=== PATIENT | male | born 1925 | race Caucasian/White ===

== ENCOUNTER 2016-12-02 10:07 | Inpatient (IN) | payer OTHER, MEDICARE ==
[~2016-12-02] VITALS: Ht 167.6 cm; Wt 91.2 kg
[~2016-12-02 10:07] MED LIST: ATORVASTATIN CA10 M1 PO; AUGMENTIN 875 M1 TAB PO; DUONEB 3 MG/3 ML3 ML INH/SOL; LASIX20 M1 PO; MEDROL4 M2 PO; MIRALAX17 GM PO; POTASSIUM CHLO10 ME5 PO; PREDNISONE50 MG PO; TYLENOL #31 TAB PO; VENTOLIN HFA18 GM INH
--- NOTE | 2016-12-02 10:15 | NUR ---
PT PRESENTS TO ER C/O OF DIFFUSE ABDOMINAL PAIN THAT STARTED 1 HOUR [facility]
--- NOTE | 2016-12-02 10:15 | NUR ---
PT MOVED TO ROOM 4 ON ARRIVAL, FOR EKG
--- NOTE | 2016-12-02 10:25 | NUR ---
PT TO ER ROOM 4. DR BENITES AT BEDSIDE AT THIS TIME FOR EVAL. IV EST.
--- NOTE | 2016-12-02 10:28 | ED GI/GU/ABDOMINAL COMPLAINT ---
History of Present Illness General Chief Complaint: Abdominal Pain/Flank Pain Stated Complaint: ABD PAIN X 1HR Source: patient, family Exam Limitations: no limitations Vital Signs & Intake/Output Vital Signs & Intake/Output Vital Signs Date Time Temp Pulse Resp B/P Pulse O2 O2 Flow FiO2 Ox Delivery Rate 12/06 0621 40 12/06 0612 88 124/72 12/06 0400 99 Ventilator 40% 12/06 0400 98.1 82 23 108/67 99 Ventilator 40% 12/06 0318 40 12/06 0110 40 12/06 0052 87 91/59 12/06 0045 99.5 12/06 0000 100.8 100 26 119/64 96 Ventilator 40% 12/06 0000 9 Ventilator 40% 12/05 2346 100.9 12/05 2200 107 117/64 12/05 2130 40 12/05 2000 95 Ventilator 40% 12/05 1999 100.8 107 27 110/65 95 Ventilator 35% 12/05 1944 40 12/05 1742 100.1 12/05 1649 100.8 12/05 1649 108 94/60 12/05 1642 40 12/05 1600 97 Ventilator 40% 12/05 1600 100.6 108 27 110/62 97 Ventilator 40% 12/05 1323 40 12/05 1200 96 Ventilator 40% 12/05 1200 99.8 146 25 100/71 96 Ventilator 40% 12/05 1041 125 80/0 12/05 1009 126 82/0 12/05 0954 179 82/0 12/05 0915 101.5 12/05 0840 101.9 12/05 0830 40 12/05 0800 98 Ventilator 40% 12/05 0800 102.0 128 27 96/68 98 Ventilator 40% ED Intake and Output 12/06 0000 12/05 1200 Intake Total 5190 1414 Output Total 570 325 Balance 4620 1089 Intake, IV 5190 1414 Intake, Oral 0 Output, 150 125 Gastric Drainage Output, Stool 20 0 Output, Urine 400 200 Allergies Coded Allergies: NO KNOWN ALLERGIES (12/24/15) Reconcile Medications Albuterol Sulfate (Ventolin Hfa) 90 MCG HFA.AER.AD 2 PUF INH Q4-6 PRN PRN BREATHING PROBLEMS (Reported) Albuterol Sulfate/Ipratropiu (Duoneb) 3 MG/3 ML NEB 1 Vial INH/ELOY 4 TIMES/DAY PRN WHEEZING Atorvastatin Calcium 10 MG TABLET 1 TAB PO DAILY CHOLESTEROL (Reported) Furosemide (Lasix) 20 MG TABLET 1 TAB PO DAILY FLUID IN LUNGS Methylprednisolone. (Medrol) 4 MG TAB.DS.PK 1 DP PO AD BRONCHOSPASM 6 on day 1 then reduce by one tablet daily until gone Potassium Chloride 10 MEQ TAB.ER.PRT 1 TAB PO DAILY SUPPLEMENT Triage Note: PT PRESENTS TO ER C/O OF DIFFUSE ABDOMINAL PAIN THAT STARTED 1 HOUR [facility] Triage Nurses Notes Reviewed? yes HPI: Patient presents for evaluation of severe lower abdominal pain that began 2 days ago. It is a constant sharp severe pain. Nothing seems to make it better or worse. He denies vomiting fever or cold symptoms or dysuria. He did pass a small amount of urine today. He also has a history of constipation with his last bowel movement being about 2 days ago. Past History Travel History Traveled to [place] past 21 day No Medical History Any Pertinent Medical History? 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 No Review of Systems Review of Systems Constitutional: Reports: no symptoms. EENTM: Reports: no symptoms. Respiratory: Reports: no symptoms. Cardiovascular: Reports: no symptoms. GI: Reports: see HPI. Genitourinary: Reports: no symptoms. Musculoskeletal: Reports: no symptoms. Skin: Reports: no symptoms. Neurological/Psychological: Reports: no symptoms. Hematologic/Endocrine: Reports: no symptoms. Immunologic/Allergic: Reports: no symptoms. All Other Systems: Reviewed and Negative Physical Exam Physical Exam Gastrointestinal: SEE BELOW Comments: Gen.: Well-nourished, well-developed, no acute respiratory distress. Moderate stress secondary to abdominal pain. Head: Normocephalic, atraumatic. Eyes: Normal inspection bilaterally Ears: Normal inspection bilaterally Nose: Normal inspection Throat/mouth : Moist mucosa Neck: Supple, full range of motion, no goiter Heart: Regular rate and rhythm, no murmurs rubs or gallops Lungs: Clear to auscultation bilaterally with normal air entry Chest: Nontender Back: Normal range of motion Abdomen: Soft, suprapubic tenderness, nondistended, normal bowel sounds Extremities: Normal range of motion grossly, equal radial pulses, no cyanosis clubbing or edema Neurologic: Cranial nerves grossly intact, speech is clear Skin: warm and dry Psychiatric: Calm, cooperative, no apparent delusions or hallucinations : Left inguinal hernia, reducible. Core Measures ACS in differential dx? No Severe Sepsis Present: No Septic Shock Present: No Progress Differential Diagnosis: bowel obstruction, diverticulitis, perforated viscous, ureterolithiasis, urinary retention Plan of Care: Orders Procedure Date/time Status LACTIC ACID 12/06 0554 Active ARTERIAL BLOOD GAS (GEN) 12/06 0500 Complete XRY-PORTABLE CHEST XRAY 12/06 0500 Active ICU LAB BUNDLE 12/06 0500 Complete CBC WITHOUT DIFFERENTIAL 12/06 0500 Complete LACTIC ACID 12/05 2000 Complete LACTIC ACID 12/05 1700 Complete EKG 12/05 1416 Active LACTIC ACID 12/05 1238 Complete Restraint- Medical 12/05 0941 Active Edward, Insertion/Removal/Asses 12/05 0941 Active TROPONIN LEVEL 12/05 0938 Complete LACTIC ACID 12/05 0938 Complete EKG 12/05 0933 Active EKG 12/05 0839 Active CORTISOL AM 12/05 0410 Complete Current Medications Sig/Ar Start time Last Medication Dose Stop Time Status Admin Morphine Sulfate 2 MG Q3P PRN 12/04 1300 AC (Morphine) Ondansetron HCl 4 MG Q6P PRN 12/02 1800 AC (Zofran) Laboratory Tests 12/06/16 0505: pH 7.30 *L, pCO2 29 L, pO2 103 H, HCO3 14 L, ABG O2 Sat (Measured) 97.0, P-50 (Temp Corrected) Y, Carboxyhemoglobin 0.1 L, O2 Concentration % 40%, Temperature 98.1, Respiration Rate 20, O2 Delivery Method ESPRIT, Vent Mode AC, Expiratory Pressure 5, Tidal Volume 500, Phlebotomy Draw Site [place] 12/06/16 4529: Anion Gap 12, Estimated GFR 44 L, Glucose 189 H, Calcium 6.6 L, Phosphorus 3.4, Magnesium 2.0, Total Bilirubin 1.1, AST 31, ALT 29, Albumin 1.8 L, CBC w Diff MAN DIFF ORDERED, RBC 4.62 L, MCV 83.8, MCH 28.5, RDW 16.0 H, MPV 10.1, Gran % 71.4, Lymphocytes % 9.6 L, Monocytes % 18.9 H, Eosinophils % 0.1, Basophils % 0 L, Absolute Granulocytes 5.5, Segmented Neutrophils 66, Band Neutrophils 11 H, Absolute Lymphocytes 0.7 L, Lymphocytes 18 L, Monocytes 4, Absolute Monocytes 1.5 H, Absolute Eosinophils 0, Absolute Basophils 0, Metamyelocytes 1, Anisocytosis 1+, PUBS MCHC 34.0, Fld Total RBCs Counted 100 12/05/16 2055: Lactic Acid 2.2 H 12/05/16 1820: Lactic Acid Cancelled 12/05/16 1658: Lactic Acid 2.6 H 12/05/16 1338: Lactic Acid 2.4 H 12/05/16 0949: Lactic Acid 2.9 H, Troponin I 0.02 Initial ED EKG: NSR, rate (83) Prior EKG: unchanged Comments: 12/02/2016 11:39:[address] HALEY:FREE AIR. LARGE LEFT INGUIINAL HERNIA WITH WALL THICKENING. STOOL AND GAS IN ANTERIOR ABD. SURGERY PAGED. PT UPDATED. 12/02/2016 12:02:09 PM Left inguinal hernia reevaluated: Remains easily reducible. Patient states he has had it for "a long time". 12/02/2016 12:43:24 PM patient's case discussed with the surgical PA who will attempt to contact the on-call attending surgeon. 12/02/2016 12:50:53 PM patient's case discussed with Dr. Adkins. Departure Departure Disposition: STILL A PATIENT Condition: Stable Clinical Impression Primary Impression: Perforated abdominal viscus Secondary Impressions: Left inguinal hernia Referrals: JOSH CHEUNG MD (PCP/Family) Departure Forms: Customer Survey General Discharge Information Admission Note Spoke With: ARISTIDES ALEJANDRO,DARWIN N. Documentation of Exam: Documentation of any treatments & extenuating circumstances including Concerns Regarding Discharge (functional status, medication knowledge or non-compliance, living conditions, etc.) that warrant an admission rather than observation: OR/GI Note Spoke With: ARISTIDES ALEJANDRO,DARWIN Nunn. ED Treatment Decision: BIBLEKAJ,GJERGJ requires urgent operative management or an emergent procedure that cannot be performed in the Emergency Room setting.Patient has a perforated abdominal viscus placing him at extremely high risk of peritonitis overwhelming infection, sepsis and . He requires emergent operative intervention. Transport To: Surgical [facility] Critical Care Note Critical Care Note Critical Care Time: 30-74 min
--- NOTE | 2016-12-02 10:38 | NUR ---
BLOOD WORK DRAWN AND SENT TO LAB. PT ATTEMPTED TO URINATE, PER PT HE WENT THIS AM AND DOESNT FEEL LIKE HE HAS TO GO AT THIS TIME. AWAITING BLADDER SCANNER PER DR BENITES. PT C/O LOWER ABD PAIN.
[2016-12-02 10:45] LABS: ABSOLUTE BASOPHIL COUNT 0.1 /CUMM (0.0-0.2); ABSOLUTE EOSINOPHIL COUNT 0.4 /CUMM (0.0-0.7); ABSOLUTE GRANULOCYTE CT 5.7 /CUMM (1.4-6.5); ABSOLUTE LYMPH COUNT 3.9 /CUMM (1.2-3.4); ABSOLUTE MONOCYTE COUNT 0.7 /CUMM (0.10-0.60); BASOPHIL % 0.6 % (0.0-2.0); EOSINOPHIL % 3.6 % (0-5); GRANULOCYTE % 53.2 % (42.2-75.2); HEMATOCRIT 44.6 % (42-52); MEAN CORPUSCULAR HGB 28.6 PG (27.0-31.0); MEAN CORPUSCULAR HGB CONC 34.3 G/DL (33.0-37.0); MEAN CORPUSCULAR VOLUME 83.5 FL (80.0-94.0); MEAN PLATELET VOLUME 8.9 FL (7.4-10.4); PLATELET COUNT 262 /CUMM (130-400); RBC DISTRIBUTION WIDTH 14.3 % (11.5-14.5); RED BLOOD CELL CT 5.34 /CUMM (4.70-6.10); WHITE BLOOD CELL COUNT 10.8 /CUMM (4.8-10.8)
--- NOTE | 2016-12-02 11:17 | NUR ---
PT TO CTS CAN VIA STRETCHER AT THIS TIME
--- NOTE | 2016-12-02 11:50 | NUR ---
PT BACK FROM CT SCAN. PT STILL C/O PAIN / TO LOWER ABD. PT MEDICATED WITH 2MG IV MORPHINE PER ORDER. BLADDER SCAN PERFORMED, 250-300CC NOTED ON SCANNER. PT VOIDED 200CC IN URINAL, BLADDER SCAN PERFORMED AGAIN AND STILL READ 200CC. ANN PALCED PER DR BENITES ORDERS AND OUTPUT 300CC DARK URINE. SPECIMEN SENT TO LAB
--- NOTE | 2016-12-02 11:50 | CT SCAN REPORT ---
EXAMINATION: CT ABDOMEN AND PELVIS WITH CONTRAST CLINICAL INFORMATION: Lower abdominal pain and tenderness. COMPARISON: Lumbar spine CT 12/23/2015. TECHNIQUE: Multidetector volumetric imaging was performed of the abdomen and pelvis before and after the IV administration of 95 mL of Optiray 320 intravenous contrast. Sagittal and coronal reformatted images were obtained on the technologist's workstation. DLP: 764 mGy-cm. FINDINGS: LUNG BASES: Bibasilar subsegmental atelectasis. Calcified left lower lobe pulmonary nodule noted. Coronary artery calcifications present. Small hiatal hernia. LIVER, GALLBLADDER, AND BILIARY TREE: The liver is normal in size, shape, and attenuation. No focal hepatic lesion or biliary ductal dilatation is present. The gallbladder is unremarkable with no evidence of radiopaque gallstones, gallbladder wall thickening, or obvious pericholecystic inflammatory changes. PANCREAS: Unremarkable. SPLEEN: Unremarkable. ADRENAL GLANDS: Unremarkable. KIDNEYS AND URETERS: The kidneys are normal in size, shape, and attenuation. No hydronephrosis, hydroureter, or calculi seen. No perinephric stranding. BLADDER: No wall thickening. A portion of the bladder extends into the left inguinal hernia. GASTROINTESTINAL TRACT: Small hiatal hernia. The stomach is otherwise unremarkable. The small bowel is unremarkable. No dilated loops of bowel or evidence of obstruction. There is a prominent left inguinal hernia containing a portion of the sigmoid colon. There is mild wall thickening of the sigmoid colon in this region. Multiple scattered foci of free air are seen, both within the hernia sac and within the peritoneum. This extends superiorly along the margin of the left lobe of the liver. There is mild stranding in the fat surrounding the sigmoid colon. There is an additional area of abnormal appearance in the anterior central abdomen abutting multiple loops of small bowel which has the appearance of extraluminal gas which either dissects through the fat or may be mixed with stool components. This is seen on axial image 59/97 anteriorly. ABDOMINAL WALL: Prominent left inguinal hernia. This is not fully imaged, with additional gas and soft tissue structure seen at the inferior margin of the imaged hernia. LYMPH NODES: Normal. VASCULAR: Extensive atherosclerotic calcifications are present. PELVIC VISCERA: The prostate and seminal vesicles are unremarkable. OSSEOUS STRUCTURES: Multilevel vertebral body compression deformities are noted. The L1 vertebral body compression deformity is unchanged from the study performed 12/23/2015. T11 compression deformity with approximately 50% loss of vertebral body height and increased sclerosis of the vertebral body is new from that time. There is disc space narrowing at L5-S1. Multilevel endplate osteophyte formation. IMPRESSION: Intra-abdominal free air consistent with a perforation. There is a large left inguinal hernia containing colon with internal foci of gas is well. A larger area of gas is seen in the anterior central abdomen with a heterogeneous appearance, either suggesting a combination of stool components or dissection through the mesenteric fat. There is mild wall thickening of the sigmoid colon noted with mild adjacent stranding. This portion of the bowel is decompressed which limits the evaluation. Impression deformity of the T11 vertebral body is new from the prior CT performed 12/23/2015. This critical result was discussed with SILVESTRE BENITES MD by telephone at 12/02/2016 11:43 AM and it was ascertained that the content and urgency of the report was understood at the time of direct communication.
[2016-12-02 12:14] LABS: PT 12.4 SEC (9.4-12.5)
--- NOTE | 2016-12-02 12:24 | NUR ---
PT MEDICATED WITH 0.6MG IV DILAUDID PER ORDER AT THIS TIME. PT STATES PAIN AT THIS TIME 07/07. FAMILY REMAINS AT BEDSIDE.
--- NOTE | 2016-12-02 12:49 | NUR ---
DR PHILIP AT BEDSIDE
--- NOTE | 2016-12-02 13:14 | NUR ---
DENTURES REMOVED AND PTS FAMILY TAKING THEM HOME. PRE OP SCRUB COMPLATED AT THIS TIME.
--- NOTE | 2016-12-02 13:18 | NUR ---
SURGICAL PA AT BEDSIDE
--- NOTE | 2016-12-02 13:34 | NUR ---
DISTRIBUTION HERE TO TAKE PT TO OR AT THIS TIME.
--- NOTE | 2016-12-02 13:56 | History & Physical Pre-Op ---
General Information and HPI History of Present Illness: CC: abdominal pain HPI: yo non-diabetic non-smoker, quit over 30 years ago followed by [facility] developer for asthma or COPD meds include steroids, and sometimes she takes laxatives for constipation intermittently but otherwise no personal or family history of abdominal problems, earlier today and felt a little bit of pain across the middle of his abdomen and he tried to move his bowels he couldn't or didn't and then the pain intensified so severe that he came to the ER. He hadn' t eaten anything unusual recently no unusual straining no recent flulike symptoms or changes in medications. The pain is worse on movement its constant severe he has shakes and chills he's cold. He has had a colonoscopy there is no bleeding per rectum. Otherwise no changes bowel habits, weight or appetite. I' ve reviewed the [facility]. No history of GERD, PUD, bleeding problems, heart disease or issues with anesthesia. Family history negative for heart disease. Past surgical history includes bilateral inguinal hernia repair he has a recurrence on the left for at least 10 years. Allergies/Medications Allergies: Coded Allergies: NO KNOWN ALLERGIES (12/24/15) Home Med list Albuterol Sulfate (Ventolin Hfa) 90 MCG HFA.AER.AD 2 PUF INH Q4-6 PRN PRN BREATHING PROBLEMS (Reported) Albuterol Sulfate/Ipratropiu (Duoneb) 3 MG/3 ML NEB 1 Vial INH/ELOY 4 TIMES/DAY PRN WHEEZING Atorvastatin Calcium 10 MG TABLET 1 TAB PO DAILY CHOLESTEROL (Reported) Furosemide (Lasix) 20 MG TABLET 1 TAB PO DAILY FLUID IN LUNGS Methylprednisolone. 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 Surgical History Pertinent Surgical History: non-contributory Past Family/Social History Psychosocial History Services at Home None Review of Systems Review of Systems: Constitutional: No fever, sweats or weight loss ENMT: No sore throat Cardiovascular: No chest pain, palpitations or leg swelling Respiratory: No shortness of breath, cough, or sputum or dyspnea on exertion GI: No GERD or bleeding per rectum : No dysuria or hematuria Musculoskeletal: No new muscle weakness, bone or joint pain Skin / Breast: No jaundice, rashes or itching Psychiatric: No history of drug or alcohol abuse no depression or anxiety Hematologic / lymphatic system: No problems with excessive bleeding, bruising, or blood clots Exam & Diagnostic Data Last 24 Hrs of Vital Signs/I&O I reviewed Vital Signs Date Time Temp Pulse Resp B/P Pulse O2 O2 Flow FiO2 Ox Delivery Rate 12/02 1317 96.7 138 18 182/98 98 Room Air 12/02 1155 96.4 103 18 151/88 92 Room Air 12/02 1016 95.6 81 20 214/109 95 Room Air I reviewed Intake & Output 12/02 1600 12/02 0800 12/02 0000 Intake Total Output Total 800 Balance -800 Output, Urine 800 Physical Exam: Constitutional: Rigors,pleasant, no acute distress, conversant Eyes: sclera anicteric ENMT: ears and nose atraumatic, moist mucous membranes, good dentition, no lip lesions Neck: Supple, trachea is midline, no cervical or supraclavicular adenopathy and no palpable thyromegaly Cardiovascular: S1, S2, no murmurs, no peripheral edema Respiratory: clear to auscultation with normal respiratory effort and no intercostal retractions GI: abdomen soft, rebound tenderness diffusely, nondistended, no palpable hepatosplenomegaly Left inguinal hernia nontender reducible Extremities / lymphatics: symmetrically warm, free range of motion no peripheral edema, no cervical, supraclavicular, axillary, or inguinal adenopathy Musculoskeletal: gait and station not evaluated, no digital cyanosis, good muscle strength and tone no atrophy, motor grossly 5 out of 5 throughout Skin: no jaundice, no rashes warm, nondiaphoretic, no areas of erythema or induration Psychiatric: mood and affect are appropriate and alert and oriented to person place and time Last 24 Hrs of Labs/Adrian: I reviewed Laboratory Tests 12/02/16 1155: Urine Color YEL, Urine Clarity CLEAR, Urine pH 6.0, Ur Specific [place] 1.025, Urine Protein TRACE H, Urine Ketones NEG, Urine Nitrite NEG, Urine Bilirubin NEG, Urine Urobilinogen 0.2, Ur Leukocyte Esterase NEG, Ur Microscopic SEDIMENT EXAMINED, Urine RBC 1-3, Urine WBC 1-3 H, Ur Epithelial Cells FEW, Urine Hemoglobin NEG, Urine Glucose NEG 12/02/16 1037: Anion Gap 15, Estimated GFR > 60, BUN/Creatinine Ratio 25.7 H, Glucose 161 H, Calcium 9.2, Total Bilirubin 1.2, AST 23, ALT 24, Alkaline Phosphatase 89, Total Protein 7.0, Albumin 4.1, Globulin 2.9, Albumin/Globulin Ratio 1.4, Lipase 66, PT 12.4, INR 1.18 H, CBC w Diff NO MAN DIFF REQ, RBC 5.34, MCV 83.5, MCH 28.6, RDW 14.3, MPV 8.9, Gran % 53.2, Lymphocytes % 36.3, Monocytes % 6.3, Eosinophils % 3.6, Basophils % 0.6, Absolute Granulocytes 5.7, Absolute Lymphocytes 3.9 H, Absolute Monocytes 0.7 H, Absolute Eosinophils 0.4, Absolute Basophils 0.1, PUBS MCHC 34.3 Microbiology 12/02 1203 URINE ROUT: Urine Culture - ORD I reviewed the CT scan on PACS myself from today compared it to one from 10 years ago, the configuration of the bowel especially the elongated sigmoid colon going in and out of a left inguinal hernia is the same, today's film shows stool around the terminal ileum and scattered free air. Assessment/Plan Assessment/Plan: Impression is acute abdomen, peritonitis from perforation. History sounds like sudden onset, before the bowel movement, it's not clear on the film what perforated perhaps there was a Meckel's or it could be from the cecum I doubt it 's the sigmoid even though usually it is the sigmoid. So he is high risk because of his pulmonary function and could have prolonged ventilator dependency but he has riders and I feel he is going to become septic soon so we have to urgently taken to the operating room for laparotomy and minimum washout find the perforation which may involve bowel resection or even a colostomy. Risks include bleeding infection sepsis prolonged ICU course, injury to surrounding surrounding structures such as bowel and blood vessels and ureter. We also discussed the potential risks, benefits and alternatives to the procedure and surgery in general, issues that included but were not limited to, anesthetic risks hemorrhage requiring transfusion, the risk of transfusion itself, infection, heart attack, stroke, . I explained the importance of smoking history though it's really remote, as it pertains to surgery, especially with general anesthesia and healing. As Ranked By This Provider Problem List: 1. Perforated abdominal viscus 2. Peritonitis 3. COPD (chronic obstructive pulmonary disease)
--- NOTE | 2016-12-02 17:34 | Cons- CRCU ---
BILL ALEJANDRO,DAMEON 12/02/16 1734: General Information and HPI Consulting Request Date of Consult: 12/02/16 Requested By: Reason for Consult: CRCU management Source of Information: old records, EMS Exam Limitations: unable to give history, clinical condition History of Present Illness: Patient is a 89-year-old male with past medical history significant for asthma, hypertension, bilateral inguinal hernia repaired at around 13 years ago came to the ER today with sudden onset abdominal pain in the morning after having breakfast. He he started developing periumbilical pain which significantly increased and he was unable to defecate. After he came to the ER he had a single episode of vomiting without any nausea. CT abdomen and pelvis in the ER showed perforation of the bowel with fecal matter in the peritoneal cavity. He was immediately taken to same day surgery, underwent peritoneal wash and colostomy. After the surgery they were unable to extubate him. Preoperative assessment was made and thoughts about significant risk of postop sepsis, Difficult extubation , prolonged ICU stay were expected in view of patient's age and comorbid conditions. His inguinal hernia had a significant role in the development of current condition, but they were unable to do resection at the same time. Off note: Patient follows Macy Rey MD, had a respiratory infection 3 weeks ago and was started on antibiotics and prednisone. According to the history obtained from [email or web address] he is still taking steroids and antibiotics at home. CRCU consult is placed Allergies/Medications Allergies: Coded Allergies: NO KNOWN ALLERGIES (12/24/15) Home Med List: Albuterol Sulfate (Ventolin Hfa) 90 MCG HFA.AER.AD 2 PUF INH Q4-6 PRN PRN BREATHING PROBLEMS (Reported) Albuterol Sulfate/Ipratropiu (Duoneb) 3 MG/3 ML NEB 1 Vial INH/ELOY 4 TIMES/DAY PRN WHEEZING Atorvastatin Calcium 10 MG TABLET 1 TAB PO DAILY CHOLESTEROL (Reported) Furosemide (Lasix) 20 MG TABLET 1 TAB PO DAILY FLUID IN LUNGS Methylprednisolone. (Medrol) 4 MG TAB.DS.PK 1 DP PO AD BRONCHOSPASM 6 on day 1 then reduce by one tablet daily until gone Potassium Chloride 10 MEQ TAB.ER.PRT 1 TAB PO DAILY SUPPLEMENT Current Medications: Current Medications Sig/Ar Start time Last Medication Dose Route Stop Time Status Admin Acetaminophen 1,000 MG Q8 PRN 12/02 1800 AC IV 12/03 2159 Ampicillin Sodium/ 3,000 MG Q6 12/02 2359 AC Sulbactam Sodium IV Sodium Chloride 100 ML Ampicillin Sodium/ 0 .STK-MED ONE 12/02 1202 DC Sulbactam Sodium .ROUTE Ampicillin Sodium/ 3,000 MG ONCE ONE 12/02 1145 DC 12/02 Sulbactam Sodium IV 12/02 1214 1205 Sodium Chloride 100 ML Dextrose/Sodium 1,000 ML Q8H 12/02 1215 AC 12/02 Chloride IV 1223 Fentanyl Citrate 1,000 MCG ONCE ONE 12/02 1945 AC Sodium Chloride 250 ML IV 12/03 204 Heparin Sodium 5,000 UNIT Q8 12/02 2200 AC (Porcine) SC Hydromorphone HCl 0 .STK-MED ONE 12/02 1220 DC .ROUTE Hydromorphone HCl 0.6 MG ONCE ONE 12/02 1215 DC 12/02 IV 12/02 1216 1223 Morphine Sulfate 2 MG Q3P PRN 12/02 1800 AC 12/02 IV 1932 Morphine Sulfate 4 MG Q3P PRN 12/02 1800 AC IV Morphine Sulfate 2 MG ONCE ONE 12/02 1145 DC 12/02 IV 12/02 1146 1150 Morphine Sulfate 0 .STK-MED ONE 12/02 1136 DC .ROUTE Morphine Sulfate 2 MG ONCE ONE 12/02 1030 DC 12/02 IV 12/02 1031 1036 Morphine Sulfate 0 .STK-MED ONE 12/02 1029 DC .ROUTE Ondansetron HCl 4 MG Q6P PRN 12/02 1800 AC IV Potassium Chloride 20 MEQ Q10H 12/02 1800 DC 12/02 Dextrose/Sodium 1,000 ML IV 1857 Chloride Sodium Chloride 500 ML BOLUS ONE 12/02 2044 UNVr IV 12/02 2144 Review of Systems Review of Systems Constitutional: Reports: see HPI. 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 Ambulation: independent IADLs Independent: shopping, housework, finances, food prep, telephone, transportation , medication admin. Exam & Diagnostic Data Last 24 Hrs of Vital Signs/I&O Vital Signs Date Time Temp Pulse Resp B/P Pulse O2 O2 Flow FiO2 Ox Delivery Rate 12/02 2003 98 Ventilator 40% 12/02 1825 60 12/02 1815 97.8 90 16 82/60 98 Ventilator 60% 12/02 1317 96.7 138 18 182/98 98 Room Air 12/02 1155 96.4 103 18 151/88 92 Room Air 12/02 1016 95.6 81 20 214/109 95 Room Air Intake & Output 12/02 1600 12/02 0800 12/02 0000 Intake Total Output Total 800 Balance -800 Output, Urine 800 Physical Exam General Appearance: no apparent distress, alert, sedated, intubated, mild distress Head: atraumatic, normal appearance Eyes: Bilateral: normal appearance, PERRL, EOMI. Respiratory: chest non-tender, rhonchi Cardiovascular: regular rate/rhythm, normal peripheral pulses Peripheral Pulses: 2+ radial (R), 2+ radial (L) Last 48 Hrs of Labs/Adrian: Laboratory Tests 12/02/16 1905: pH 7.35, pCO2 38, pO2 151 H, HCO3 21, ABG O2 Sat (Measured) 97.0, P-50 (Temp Corrected) N, Carboxyhemoglobin 0.6 L, O2 Concentration % 60%, Temperature 97.8 , Respiration Rate 16, O2 Delivery Method ESPRIT, Vent Mode AC, Expiratory Pressure 5, Tidal Volume 500, Phlebotomy Draw Site [place] 12/02/16 1830: Sodium Cancelled, Potassium Cancelled, Chloride Cancelled, Carbon Dioxide Cancelled, Anion Gap Cancelled, BUN Cancelled, Creatinine Cancelled, Estimated GFR Cancelled, BUN/Creatinine Ratio Cancelled, Phosphorus Cancelled, Magnesium Cancelled, Troponin I Cancelled, CBC w Diff Cancelled, WBC Cancelled, RBC Cancelled, Hgb Cancelled, Hct Cancelled, MCV Cancelled, MCH Cancelled, RDW Cancelled, Plt Count Cancelled, MPV Cancelled, Gran % Cancelled, Lymphocytes % Cancelled, Monocytes % Cancelled, Eosinophils % Cancelled, Basophils % Cancelled , Absolute Granulocytes Cancelled, Segmented Neutrophils Cancelled, Absolute Lymphocytes Cancelled, Absolute Monocytes Cancelled, Absolute Eosinophils Cancelled, Absolute Basophils Cancelled, PUBS MCHC Cancelled 12/02/16 1155: Urine Color YEL, Urine Clarity CLEAR, Urine pH 6.0, Ur Specific [place] 1.025, Urine Protein TRACE H, Urine Ketones NEG, Urine Nitrite NEG, Urine Bilirubin NEG, Urine Urobilinogen 0.2, Ur Leukocyte Esterase NEG, Ur Microscopic SEDIMENT EXAMINED, Urine RBC 1-3, Urine WBC 1-3 H, Ur Epithelial Cells FEW, Urine Hemoglobin NEG, Urine Glucose NEG 12/02/16 1037: Anion Gap 15, Estimated GFR > 60, BUN/Creatinine Ratio 25.7 H, Glucose 161 H, Calcium 9.2, Total Bilirubin 1.2, AST 23, ALT 24, Alkaline Phosphatase 89, Total Protein 7.0, Albumin 4.1, Globulin 2.9, Albumin/Globulin Ratio 1.4, Lipase 66, PT 12.4, INR 1.18 H, CBC w Diff NO MAN DIFF REQ, RBC 5.34, MCV 83.5, MCH 28.6, RDW 14.3, MPV 8.9, Gran % 53.2, Lymphocytes % 36.3, Monocytes % 6.3, Eosinophils % 3.6, Basophils % 0.6, Absolute Granulocytes 5.7, Absolute Lymphocytes 3.9 H, Absolute Monocytes 0.7 H, Absolute Eosinophils 0.4, Absolute Basophils 0.1, PUBS MCHC 34.3 Diagnostic Data CXR Results 1. Endotracheal tube catheter in good position 4 cm above fernando. 2. Nasogastric tube in stomach. 3. Right IJ catheter tip in superior vena cava at the cavoatrial junction. 4. Low lung volume with linear atelectasis at left lung base. Other Results CT abdomen and pelvis IMPRESSION: Intra-abdominal free air consistent with a perforation. There is a large left inguinal hernia containing colon with internal foci of gas is well. A larger area of gas is seen in the anterior central abdomen with a heterogeneous appearance, either suggesting a combination of stool components or dissection through the mesenteric fat. There is mild wall thickening of the sigmoid colon noted with mild adjacent stranding. This portion of the bowel is decompressed which limits the evaluation. Impression deformity of the T11 vertebral body is new from the prior CT performed 12/23/2015. Assessment/Plan Impression/Plan: Patient is a 89-year-old male with past medical history significant for asthma, hypertension, bilateral inguinal hernia repaired at around 13 years ago came to the ER today with sudden onset abdominal pain in the morning after having breakfast. In the ER he is found to have acute abdomen with peritonitis secondary to perforation. Plan Peritonitis secondary to colonic perforation * Underwent surgery with aggressive irrigation and washing of the peritoneum * As there is a lot of fecal matter in the peritoneum before the surgery, although the patient presented very early, risk of infection is very high. * He needs close monitoring of his vitals along with empiric antibiotics. * Close monitoring of CVP and urine output. * A set of labs including CBC, BEP, PT/PTT are sent now. * As the risk of infection is high, patient may need prolonged ICU stay depending on the clinical course. * D5 half normal saline running @125ml/hr. * On Unasyn 3 g Q 6 IV On mechanical ventilation * On fentanyl drip * Central line is present with monitoring of CVP * repeat ABG to adjust ventilator settings. History of asthma * TRC/nebs History of hypertension * On Lasix 20 mg daily, will resume as the patient's blood pressure stabilizes. Hyperlipidemia * On atorvastatin at home * Will resume after stabilization DVT prophylaxis * Subcutaneous heparin CODE STATUS * Full code Problem List: 1. ASTHMA 2. Dyslipidemia 3. Peritonitis 4. Left inguinal hernia 5. Perforated abdominal viscus Consult Acknowledgment - Thank you for your consult request. FRANCA ALEJANDRO,Macy PATTON 12/02/16 2100: Assessment/Plan Other Findings/Comments: The patient was seen and examined. I agree with the above resident's assessment , physical exam, impression and plan. The patient is an 89-year-old male with a past medical history of arthritis, dyslipidemia, infrequent hemoptysis, obstructive lung disease, and chronic cough related to a chronic bacterial infection including [place] ascorbata and Klebsiella, recently treated with Cipro. The patient reported to the emergency department with worsening abdominal pain while trying to move his bowels. There is no history of bleeding. The patient was further evaluated noting that he had a CT scan of the abdomen and pelvis. The CT scan demonstrated acute perforation. The patient was urgently taken to the operating room where he underwent an exploratory laparotomy and sigmoid colectomy. He was noted to have significant stool in his abdominal cavity which was washed out. The patient was hypotensive in the OR and required a small dose of Matteo-Synephrine prior to being transferred to the critical care unit. The patient was left intubated as per anesthesia due to the nature of his operation and history of chronic lung disease. The patient currently is sedated. He has low urine output. His blood pressure is in the 90s. He appears comfortable. Impression: 1. Status post exploratory laparotomy and sigmoid colectomy with colostomy placement for acute abdominal perforation. 2. Respiratory failurethe patient remains on mechanical ventilation. 3. 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 4. Low urine output. Plan: -Normal saline bolus ordered. Will need to monitor urine output and CVP. If the patient does have decreased urine output, he will need repeat boluses. Otherwise continue to maintain the patient on normal saline at 100 ML per hour. -Stat labs to be ordered: CBC, ICU bundle, lactic acid, troponin, and coags. -We will check a chest x-ray for endotracheal tube placement. -We will also check an EKG. -Check a sputum and urine culture. -Continue IV Unasyn. -Low dose fentanyl drip for pain control. -Await repeat ABG, will adjust vent as necessary. -Please order a TRC for nebs. -Continue DVT/GI prophylaxis. -The patient has the potential to be critically ill. I discussed this with the patient's family at the bedside. Consult Acknowledgment - Thank you for your consult request.
[2016-12-02 18:15] VITALS: BP 82/60
--- NOTE | 2016-12-02 18:53 | RADIOLOGY REPORT ---
EXAMINATION: XR PORTABLE CHEST CLINICAL INFORMATION: NG tube placement. Central line placement. Endotracheal tube. COMPARISON: Chest x-ray 10/27/2016 TECHNIQUE: Portable view of the chest was obtained. 6:32 PM FINDINGS: Endotracheal tube catheter in good position about 4 cm above the fernando. Nasogastric tube tip in stomach. Right IJ catheter tip in superior vena cava at the cavoatrial junction. Low lung volume. Linear atelectasis at the left lung base. Emphysematous hyperlucency of lung. No pulmonary vascular congestion. No pleural effusion. No pneumothorax. IMPRESSION: 1. Endotracheal tube catheter in good position 4 cm above fernando. 2. Nasogastric tube in stomach. 3. Right IJ catheter tip in superior vena cava at the cavoatrial junction. 4. Low lung volume with linear atelectasis at left lung base.
--- NOTE | 2016-12-02 20:00 | NUR ---
RECIEVED PATIENT POST PACU SESSION. PT AROUSABLE. CALMER AFTER MORPHINE ADMINISTRATION.BP 90/67 VIA AUTO CUFF AFTER MORPHINE. URINE OUTPUT 20 ML FOR LAST HOUR.2ND 500 ML NS BOLUS GIVEN. IV FLUIDS AT 100 ML/HR. COLOSTOMY STOMA PINK.NO DRAINAGE NOTED.
--- NOTE | 2016-12-02 20:33 | NUR ---
RECEIVED PT FROM THE O.R AT 1814, PT HAD A HARTMANS PROCEDURE WITH COLOSTOMY PLACEMENT. PT IS SEDATED UPON ARRIVAL, SAS 3, PUPILS FIXED. PT ARRIVED TO UNIT INTUBATED, #8 ETT TO THE RIGHT AT 22CM, VENT SETTINGS AC-16 500/60%/5. LUNGS CLEAR. NO DISTRESS NOTED. NGT TO RIGHT NARE TAPED AT 55CM, POSITION VERIFIED BY XRAY, NGT CONNECTED TO LOW WALL SUCTION. ABD D/F, ABSENT BOWEL SOUNDS AT THIS TIME, SURGICAL DRESSING TO MIDLINE ABDOMEN, CD&I. COLOSTOMY TO LEFT ABDOMEN, STOMA PINK, NO OUTPUT. ANN IN PLACE TO BEDSIDE DRAINAGE, DRAINING DARK JUJU URINE. RIJ TLC IN PLACE, +BLOOD RETURN, DRESSING INTACT. #20 RAC, #16 LAC, #18 LH FLUSHING WELL. A LINE TO RIGHT RADIAL, GOOD WAVE FORM. RESTRAINTS PLACED DUE TO PT BEING INTUBATED. NSR 90'S ON MONITOR. B/P READING 74/O DOPPLER, 500 ML NS BOLUS GIVEN. IVF STARTED D5 1/2NS W/20 MEQ KCL @ 100 ML/HR. DR MENDEZ AT BEDSIDE. CVP SET UP, CVP READING 18. LABS DRAWN VIA A LINE BY JENNIFER HIRSCH, PER XIAO IN LAB, THEY NEED TO BE REDRAWN, MD SCHULTE AWARE ALONG WITH JENNIFER KEITH WHO ASSUMED CARE OF THE PT. 1914: PT STARTED TO WAKE UP, PULLING AT RESTRAINTS, SHAKING HEAD BACK AND FORTH, PULLING UP LEGS ON BED. 2MG IV MORPHINE GIVEN, PT'S B/P UP TO 190/100 AT THIS TIME DUE TO AGITATION AND ANXIETY. PT TO BE STARTED ON FENTANYL GTT. MEDICAL TEAM SPEAKING WITH FAMILY, UPDATING POC.
[2016-12-02 21:07] LABS: ABSOLUTE BASOPHIL COUNT 0 /CUMM (0.0-0.2); ABSOLUTE EOSINOPHIL COUNT 0 /CUMM (0.0-0.7); ABSOLUTE GRANULOCYTE CT 5.9 /CUMM (1.4-6.5); ABSOLUTE LYMPH COUNT 0.7 /CUMM (1.2-3.4); ABSOLUTE MONOCYTE COUNT 0.3 /CUMM (0.10-0.60); BASOPHIL % 0 % (0.0-2.0); EOSINOPHIL % 0.2 % (0-5); HEMATOCRIT 47.3 % (42-52); MEAN CORPUSCULAR HGB 27.9 PG (27.0-31.0); MEAN CORPUSCULAR HGB CONC 33.5 G/DL (33.0-37.0); MEAN CORPUSCULAR VOLUME 83.4 FL (80.0-94.0); MEAN PLATELET VOLUME 9.4 FL (7.4-10.4); PLATELET COUNT 165 /CUMM (130-400); RBC DISTRIBUTION WIDTH 14.1 % (11.5-14.5); RED BLOOD CELL CT 5.66 /CUMM (4.70-6.10); WHITE BLOOD CELL COUNT 6.9 /CUMM (4.8-10.8)
--- NOTE | 2016-12-02 21:11 | RADIOLOGY REPORT ---
EXAMINATION: XR PORTABLE CHEST CLINICAL INFORMATION: Postop. Intubation. COMPARISON: Chest x-ray 12/02/2016 TECHNIQUE: Portable view of the chest was obtained. 8:43 PM FINDINGS: Endotracheal tube catheter approximately 3.6 cm above fernando unchanged position. Nasogastric tube tip remains in stomach. Right IJ catheter in superior vena cava cavoatrial junction. EKG wire leads over the chest. Lung volume low. This causes crowding of the bronchovascular markings. Underlying mild interstitial edema is not excluded. Emphysematous hyperlucency of lung. No dense consolidation. No pleural effusion. IMPRESSION: Endotracheal tube catheter tip about 3.6 cm above the fernando. Lower lung volume with crowding of the bronchovascular markings. Underlying mild interstitial edema not excluded.
[2016-12-02 21:16] LABS: PT 13.3 SEC (9.4-12.5)
[2016-12-02 21:26] LABS: GRANULOCYTE % 85.2 % (42.2-75.2)
--- NOTE | 2016-12-02 23:21 | PN- General Surgery ---
Subjective Subjective: The patient was seen this evening postoperatively. He remains intubated and sedated. Per nursing his urine output postoperatively has been low and he has received 2 boluses of normal saline. His pressures been relatively stable aside from a brief period of hypotension after receiving morphine. Objective Vital Signs and I&Os Vital Signs Date Time Temp Pulse Resp B/P Pulse O2 O2 Flow FiO2 Ox Delivery Rate 12/02 2215 40 12/02 2201 Ventilator 40% 12/02 2003 98 Ventilator 40% 12/02 1825 60 12/02 1815 97.8 90 16 82/60 98 Ventilator 60% 12/02 1317 96.7 138 18 182/98 98 Room Air 12/02 1155 96.4 103 18 151/88 92 Room Air 12/02 1016 95.6 81 20 214/109 95 Room Air Intake & Output 12/02 1600 12/02 0800 12/02 0000 12/01 1600 12/01 0812/01 0000 Intake Total Output Total 800 Balance -800 Output, Urine 800 Physical Exam: Gen.: Intubated and sedated Skin: Warm and dry Cardiac: S1 and S2 tachycardia and regular Pulmonary: Bilateral breath sounds equal with transmitted and coarse breath sounds. Abdomen: Softly distended, surgical incision is blood-tinged at the inferior aspect. Otherwise intact. The colostomy is pink and viable with scant bloody drainage in the bag Extremities: Bilateral lower extremities are warm without calf tenderness or significant edema. Assessment/Plan Assessment/Plan Assessment: 89-year-old male status post Kirkland's procedure for perforated sigmoid colon. Postoperatively the patient remains critical, sedated, and vented. Plan: Follow up serial laboratory studies Continue nothing by mouth, NG tube decompression and IV hydration A repeat chest x-ray in the morning IV fluid boluses to maintain urine output IV antibiotics PRN pain medication and sedation as needed GI and DVT prophylaxis Total respiratory care with PRN nebulized treatments, ABGs and corrected ventilator settings Steroid taper Follow-up critical care consultation recommendations Core Measures/Miscellaneous Venous Thromboembolism VTE Risk Factors: Acute medical illness, Age > 40, Surgery VTE Contraindications: No Contraindications VTE Prophylaxis Ordered Inpt Mech & Pharm VTE Diagnosis: No Beta Abelardo Is Beta Abelardo a Home Med? No Antibiotics Is Patient on Antibiotics? Yes If Yes: infection
[2016-12-03] VITALS: BP 104/58
--- NOTE | 2016-12-03 | NUR ---
PATIENT AWAKE.FOLLOWS COMMANDS.MOVES ALL EXTREMITIES. MONITOR SINUS TACHYCARDIA AT RATE OF 111. MANUAL RM=694/58.R RADIAL LYXVL=383/80. CVP=12. TOLERATING FENTANYL DRIP AT 12.5 MCG/HR WELL. ADMITS TO PAIN.FENTANYL DRIP INCREASED TO 25 MCG/HR.URINE OUTPUT=12 ML THIS LAST HOUR.IVF AT 125 ML/HR.NGT TO LOW WALL SUCTION,DRAINING SUH SECRETIONS. NO BOWEL SOUNDS HEARD. COLOSTOMY STOMA PINK.NO DRAINAGE FROM COLOSTOMY. MIDLINE ABDOMINAL DRESSING INTACT.
--- NOTE | 2016-12-03 03:00 | NUR ---
PATIENT CALM BUT REMAINS RESPONSIVE TO SMALL INTERUPTIONS.LOOKS AROUND TO NOISES AT THE NURSES STATION,SINUS TACHYCARDIA,BP 146/70 BY MARK,RESPIRATORY RATE=26.FENTANYL DRIP INCREASED TO 50 MCG/HR.
[2016-12-03 04:00] VITALS: BP 110/80
[2016-12-03 05:18] LABS: HEMATOCRIT 45.6 % (42-52); MEAN CORPUSCULAR HGB 28.3 PG (27.0-31.0); MEAN CORPUSCULAR HGB CONC 33.7 G/DL (33.0-37.0); MEAN CORPUSCULAR VOLUME 83.9 FL (80.0-94.0); MEAN PLATELET VOLUME 9.5 FL (7.4-10.4); PLATELET COUNT 177 /CUMM (130-400); RBC DISTRIBUTION WIDTH 14.4 % (11.5-14.5); RED BLOOD CELL CT 5.44 /CUMM (4.70-6.10)
[2016-12-03 05:27] LABS: WHITE BLOOD CELL COUNT 12.1 /CUMM (4.8-10.8)
--- NOTE | 2016-12-03 05:58 | PN- General Surgery ---
See Addendum Subjective Subjective: The patient was seen this morning postoperatively day #1. He remains intubated and sedated. Per nursing there are no significant issues overnight his last CVP was 8 and is currently receiving a bolus of 500 ML's of saline is maintain adequate blood pressure without the need of pressors. Objective Vital Signs and I&Os Vital Signs Date Time Temp Pulse Resp B/P Pulse O2 O2 Flow FiO2 Ox Delivery Rate 12/03 0359 40 12/03 0137 40 12/03 0000 97.5 111 24 104/58 97 Ventilator 40% 12/03 0000 97 Ventilator 40% 12/02 2215 40 12/02 2201 Ventilator 40% 12/02 2003 98 Ventilator 40% 12/02 1999 98 Ventilator 40% 12/02 1825 60 12/02 1815 97.8 90 16 82/60 98 Ventilator 60% 12/02 1317 96.7 138 18 182/98 98 Room Air 12/02 1155 96.4 103 18 151/88 92 Room Air 12/02 1016 95.6 81 20 214/109 95 Room Air Intake & Output 12/03 0800 12/03 0000 12/02 1600 12/02 0800 12/02 0000 12/01 1600 Intake Total 1555 Output Total 141 800 Balance 1414 -800 Intake, IV 1555 Output, 75 Gastric Drainage Output, Stool 0 Output, Urine 66 800 Patient 190 lb Weight Physical Exam: Gen.: Intubated and sedated Skin: Warm and dry Cardiac: S1 and S2 tachycardia but regular Pulmonary: Bilateral breath sounds are equal and decreased at bases with some crackles and transmitted ventilator noises. Abdomen: Softly distended, surgical dressing is slightly blood tinged at the inferior aspect bowel sounds negative. A colostomy is pink and viable with scant bloody output in the bag Service: Bilateral lower extremities are warm without calf tenderness or significant edema. Assessment/Plan Assessment/Plan Assessment: 89-year-old male status post Kirkland's for perforated sigmoid postoperative day 1. The patient remains intubated and sedated relatively stable given the current insult that he has sustained. Recommendations: Follow-up morning labs, chest x-ray, an ABG. Attempt to wean of ventilator Total respiratory care Continue IV antibiotics, current pain regiment GI and DVT prophylaxis Daily ostomy care Strict I's and O's Keep nothing by mouth with NG tube decompression Follow-up critical care consultation recommendations Core Measures/Miscellaneous Venous Thromboembolism VTE Risk Factors: Acute medical illness, Age > 40, Surgery VTE Contraindications: No Contraindications VTE Prophylaxis Ordered Inpt Mech & Pharm VTE Diagnosis: No Beta Abelardo Is Beta Abelardo a Home Med? No Antibiotics Is Patient on Antibiotics? Yes If Yes: infection
--- NOTE | 2016-12-03 07:30 | NUR ---
FAMILY CALLED ME TO THE ROOM DUE TO THE PATIENT C/O DIFFICULTY BREATHING. PATIENT DIAPHORETIC.SAT=94% on 40% ON VENTILATOR.EQUAL AIR EXCHANGE BILATERAL.MONITOR SINUS TACHYCARDIA AT RATE OF 109.HOB ELEVATED. SEEN BY .EKG DONE. TROPONIN ADDED TO AM LAB WORK
[2016-12-03 08:00] VITALS: BP 120/70
--- NOTE | 2016-12-03 08:27 | PN- Resident CRCU ---
Subjective HPI/CRCU Issues: Patient is a 89-year-old male with past medical history significant for asthma, hypertension, bilateral inguinal hernia status post repair 30 years ago came to the hospital yesterday with acute abdominal pain. In the ER he was eventually found to have acute perforation of sigmoid colon with peritonitis, underwent emergent surgery with Henny's procedure. He was subsequently sent to ICU for hemodynamic stabilization, further care as patient is at high risk for infection /respiratory failure postextubation. Yesterday he was found to have hypotension and placed on the family have normal saline date 120 femoral per hour, received around 2 L of normal saline boluses and a single dose of Augmentin. He was on ventilator with a CVP of initially 3- 4, later improved to 8-10. Today morning he is able to open his eyes and respond to commands. Objective Vital Signs & I&O Last 8 Hrs of Vitals and I&O: Intake & Output 12/03 1600 Intake Total 1921 Output Total 275 Balance 1646 Intake, IV 1921 Intake, Oral 0 Number 0 Bowel Movements Output, 25 Gastric Drainage Output, Urine 250 Patient 86.183 kg Weight Vital signs He remained afebrile, sinus tachycardia heart rate between 98-118. Blood pressure initially 93/Doppler it improved to 115 -135/66-74 mmHg SAS score of 3-4 CVP around 10-12 Ins and outs -3237/500 On ventilator setting include - AC 24, VT 500, FiO2 -40, PEEP of 5. On fentanyl drip 100mcg/hr received around 4 boluses of NS 500ml. Exam General Appearance: alert, awake, intubated, mild distress Head: atraumatic, normal appearance Neck: normal inspection, right internal jugular Central line in place Respiratory: no respiratory distress, intubated Cardiovascular: regular rate/rhythm, normal peripheral pulses Gastrointestinal: normal bowel sounds, soft, non-tender Extremities: normal inspection, normal capillary refill, normal range of motion Cranial Nerves: normal hearing, normal speech, PERRL Skin: intact Central Line Site: right internal jugular Date In: 12/02/16 Need for Catheter: CVP monitoring Edward Date In: 12/02/16 Still Needed? Yes IV (Peripheral) Date In: 12/02/16 Still Needed? Yes IV Drips IV Drips: D51/2NS @ 75ml/hr Nutrition Nutrition: NPO Current Medications: Current Medications Sig/Ar Start time Last Medication Dose Route Stop Time Status Admin Acetaminophen 1,000 MG Q8 PRN 12/02 1800 AC IV 12/03 2159 Albumin Human 12.5 GM ONCE ONE 12/03 0600 DC 12/03 IV 12/03 0601 0642 Albuterol Sulfate 3 ML Q4 12/02 2200 AC 12/03 INH 1618 Ampicillin Sodium/ 3,000 MG Q6 12/02 2359 DC 12/03 Sulbactam Sodium IV 1200 Sodium Chloride 100 ML Cefazolin Sodium 3 GM ONCE ONE 12/03 1430 CAN N/A 1 UNIT IV 12/03 1514 Dextrose/Sodium 1,000 ML Q8H 12/02 2315 r 12/03 Chloride IV 1454 Dextrose/Sodium 1,000 ML Q8H 12/02 1215 DC 12/02 Chloride IV 1223 Fentanyl Citrate 1,000 MCG Q10H 12/03 1200 AC 12/03 Sodium Chloride 250 ML IV 1224 Fentanyl Citrate 1,000 MCG ONCE ONE 12/02 1945 DC 12/02 Sodium Chloride 250 ML IV 12/03 2044 2126 Heparin Sodium 5,000 UNIT Q8 12/02 2200 AC 12/03 (Porcine) SC 1452 Hydrocortisone 50 MG ONE ONE 12/02 2315 DC 12/02 Sodium Succinate IV 12/02 2316 2346 Ipratropium [place] 2.5 ML Q4 12/02 2200 AC 12/03 INH 1618 Lorazepam 1 MG Q2P PRN 12/03 1330 AC IV Lorazepam 0.5 MG ONCE ONE 12/03 0845 DC 12/03 IV 12/03 0846 0855 Magnesium Sulfate 1 GM Q2H 12/03 0800 DC 12/03 Dextrose/Water 100 ML IV 12/03 1159 1010 Magnesium Sulfate 1 GM .STK-MED ONE 12/02 2222 DC IV 12/02 2223 Magnesium Sulfate 1 GM Q2H 12/02 2145 DC 12/03 Dextrose/Water 100 ML IV 12/03 0144 0013 Morphine Sulfate 2 MG Q3P PRN 12/02 1800 AC 12/02 IV 1932 Morphine Sulfate 4 MG Q3P PRN 12/02 1800 AC IV Non-Formulary 0 SEE ADMIN CRITERIA 12/03 1315 CAN Medication ANY Ondansetron HCl 4 MG Q6P PRN 12/02 1800 AC IV Pantoprazole Sodium 40 MG DAILY 01/05 2200 AC 12/03 IV 0909 Piperacillin Sod/ 4.5 GM Q8H 12/03 1400 AC 12/03 Tazobactam Sod IV 1451 Sodium Chloride 100 ML Potassium Chloride 20 MEQ Q10H 12/02 1800 DC 12/02 Dextrose/Sodium 1,000 ML IV 1857 Chloride Potassium Phosphate 15 mMol ONE ONE 12/03 0745 DC 12/03 Dextrose/Water 250 ML IV 12/03 1148 0922 Sodium Chloride 500 ML BOLUS ONE 12/03 0400 DC 12/03 IV 12/03 0459 0355 Sodium Chloride 500 ML BOLUS ONE 12/02 2044 DC 12/02 IV 12/02 Antibiotics Antibiotic: zosyn Day #: 1 IV/PO? IV CXR Findings: IMPRESSION: 1. Endotracheal tube approximately 3.5 cm above fernando. Right IJ line stable. 2. NG tube not clearly visible against background film density. 3. Interval increased bibasilar airspace opacities. Impression/Plan Impression/Problem List Impression: Patient is a 89-year-old male with past medical history significant for asthma, hypertension, bilateral inguinal hernia status post repair 30 years ago came to the hospital yesterday with acute abdominal pain. In the ER he was eventually found to have acute perforation of sigmoid colon with peritonitis, underwent emergent surgery with Henny's procedure. He was subsequently sent to ICU for hemodynamic stabilization, further care as patient is at high risk for infection /respiratory failure postextubation. Yesterday he was found to have hypotension and placed on the family have normal saline date 120 femoral per hour, received around 2 L of normal saline boluses and a single dose of Augmentin. He was on ventilator with a CVP of initially 3- 4, later improved to 8-10. Today morning he is able to open his eyes and respond to commands. Problem List: 1. ASTHMA 2. Dyslipidemia 3. Perforated abdominal viscus 4. Left inguinal hernia 5. Peritonitis 6. Bronchospasm Pain Ratin Pain Goal: Pain 4 or less Pain Plan: tylenol IV fentanyl drip Tomorrow's Labs & Rationales: ICU bundle cbc Plan Respiratory: Intubated and mechanically ventilated * On fentanyl drip * alert and awake, responding to commands * ABG in the morning - pH of 7.34, PaCO2 37, PaO2 74, HCO3 17 which is not enough compensation to his metabolic acidosis. * However a repeat ABG afternoon shows a pH of 7.35, PaCO2 37, PaO2 70, HCO3 20 indicating slight improvement. * He received a single dose of solucortef yesterday 50mg once History of respiratory infection * Patient had chronic productive cough which was recently evaluated with sputum cultures * It revealed growth of Kluyer ascorbata and klebsiella * He was subsequently started on ciprofloxacin and a steroid taper. * He is still taking prednisolone for bronchospasm. Infectious Diseases: Sepsis secondary to peritonitis * Patient is at high risk for infection post operatively as his peritoneum is filled with fecal matter. * He was given unasyn 3gm Q6 postoperatively along with a single dose of solucortef 50mg. * Today his white count is 12 with significant bandemia, ID is consulted. * Blood cultures and urine cultures are postoperatively however no OR cultures available. * started on Zosyn 4.5 gm Q8hrs after discontinuation of unasyn * Will follow up with white count and cultures. Cardiovascular: Hypotensive and tachycardic * Received fluids overnight, with improvement in urine output. * A single dose of albumin is given to maintain oncotic pressure. * CXR in the morning shows increase in bibasilar airspace opacities. * Otherwise stable. Hematology: Leukocytosis with bandemia * white count of 12 with bandemia 41. * Reactive to steroids vs infection (E.Coli) * Started on Zosyn * Will follow daily CBC Metabolic: Lactic acidosis * Lactic acid level of 3.5 --> 4.0 --> 3.8-->3.4--> 3.0 * trending down slowly * compensation from mechanical ventilation. Alimentary: NPO with NG tube decompensation. Will decide further based on surgery recommendations. Neurological: Intact Skin: Colostomy bag in place without any evident drainage, site looks clean. incision site dressed well. DVT/Prophylaxis: sc lovenox Code Status: Full Code
--- NOTE | 2016-12-03 08:48 | RADIOLOGY REPORT ---
EXAMINATION: XR PORTABLE CHEST CLINICAL INFORMATION: Severe ARDS. On ventilator. COMPARISON: Portable chest 12/02/2016 at 2043 hours and 1832 hours, 10/27/2016; CT abdomen 12/02/2016. TECHNIQUE: Portable upright AP view of the chest is performed. FINDINGS: There is endotracheal tube with tip approximately 3.5 cm above fernando. Nasogastric tube is present but imperceptible against the background film density from level fernando. Distal end is not clearly visible. Right internal jugular central line tip is at right atrium. There is no pneumothorax. Coarsening bronchovascular markings are again noted. There is increased airspace opacity at the bilateral bases since recent exams. Upper zones clear. IMPRESSION: 1. Endotracheal tube approximately 3.5 cm above fernando. Right IJ line stable. 2. NG tube not clearly visible against background film density. 3. Interval increased bibasilar airspace opacities.
--- NOTE | 2016-12-03 09:51 | PN- CRCU ---
Subjective HPI/Critical Care Issues: The patient is awake and following commands. He continues to have some discomfort at the surgical site despite analgesia. He remains on mechanical ventilation with an oxygen requirement of 40%. Overnight, the patient required several fluid boluses to maintain urine output. This morning, his urine output has improved, and he is now putting out 30-40 mL per hour. He received a dose of hydrocortisone overnight as he was on a prednisone taper as an outpatient. He is not steroid dependent. He also received a dose of albumin as recommended by surgery. The patient's white blood cell count is 12.1 with a bandemia of 27. He remains on IV Unasyn. Objective Current Medications: Current Medications Sig/Ar Start time Last Medication Dose Route Stop Time Status Admin Acetaminophen 1,000 MG Q8 PRN 12/02 1800 AC IV 12/03 215 Albumin Human 12.5 GM ONCE ONE 12/03 0600 DC 12/03 IV 12/03 0601 0642 Albuterol Sulfate 3 ML Q4 12/02 2200 AC 12/03 INH 0819 Ampicillin Sodium/ 3,000 MG Q6 12/02 2359 AC 12/03 Sulbactam Sodium IV 0537 Sodium Chloride 100 ML Ampicillin Sodium/ 0 .STK-MED ONE 12/02 1202 DC Sulbactam Sodium .ROUTE Ampicillin Sodium/ 3,000 MG ONCE ONE 12/02 1145 DC 12/02 Sulbactam Sodium IV 12/02 1214 1205 Sodium Chloride 100 ML Dextrose/Sodium 1,000 ML Q8H 12/02 2315 AC 12/03 Chloride IV 0655 Dextrose/Sodium 1,000 ML Q8H 12/02 1215 DC 12/02 Chloride IV 1223 Fentanyl Citrate 1,000 MCG ONCE ONE 12/02 1945 AC 12/02 Sodium Chloride 250 ML IV 12/03 2043 2126 Heparin Sodium 5,000 UNIT Q8 12/02 2200 AC 12/03 (Porcine) SC 0543 Hydrocortisone 50 MG ONE ONE 12/02 2314 DC 12/02 Sodium Succinate IV 12/02 231 2346 Hydromorphone HCl 0 .STK-MED ONE 12/02 1220 DC .ROUTE Hydromorphone HCl 0.6 MG ONCE ONE 12/02 1215 DC / IV 12/02 1216 1223 Ipratropium [place] 2.5 ML Q4 12/02 220 AC 12/03 INH 0819 Lorazepam 0.5 MG ONCE ONE 12/03 0845 DC 12/03 IV 12/03 0846 0855 Magnesium Sulfate 1 GM Q2H 12/03 0800 AC 12/03 Dextrose/Water 100 ML IV 12/03 1159 0905 Magnesium Sulfate 1 GM .STK-MED ONE 12/02 2222 DC IV 12/02 2223 Magnesium Sulfate 1 GM Q2H 12/02 2145 DC 12/03 Dextrose/Water 100 ML IV 12/03 0144 0013 Morphine Sulfate 2 MG Q3P PRN 12/02 1800 AC 12/02 IV 1932 Morphine Sulfate 4 MG Q3P PRN 12/02 1800 AC IV Morphine Sulfate 2 MG ONCE ONE 12/02 1145 DC 12/02 IV 12/02 1146 1150 Morphine Sulfate 0 .STK-MED ONE 12/02 1136 DC .ROUTE Morphine Sulfate 2 MG ONCE ONE 12/02 1030 DC 12/02 IV 12/02 1031 1036 Morphine Sulfate 0 .STK-MED ONE 12/02 1029 DC .ROUTE Ondansetron HCl 4 MG Q6P PRN 12/02 1800 AC IV Pantoprazole Sodium 40 MG DAILY 12/02 2200 AC 12/03 IV 0909 Potassium Chloride 20 MEQ Q10H 12/02 1800 DC 12/02 Dextrose/Sodium 1,000 ML IV 1857 Chloride Potassium Phosphate 15 mMol ONE ONE 12/03 0745 AC 12/03 Dextrose/Water 250 ML IV 12/03 1148 0922 Sodium Chloride 500 ML BOLUS ONE 12/03 0400 DC 12/03 IV 12/03 0459 0355 Sodium Chloride 500 ML BOLUS ONE 12/02 2045 DC 12/02 IV 12/02 2144 2045 Vital Signs & I&O Last 24 Hrs of Vitals and I&O: Vital Signs Date Time Temp Pulse Resp B/P Pulse O2 O2 Flow FiO2 Ox Delivery Rate 12/03 0837 40 12/03 0611 40 12/03 0400 98.5 110 27 110/80 95 Ventilator 40% 12/03 0400 95 Ventilator 40% 12/03 0359 40 12/03 0137 40 12/03 0000 97.5 111 24 104/58 97 Ventilator 40% 12/03 0000 97 Ventilator 40% 12/02 2215 40 12/02 2201 Ventilator 40% 12/02 2003 98 Ventilator 40% 12/02 1999 98 Ventilator 40% 12/02 1825 60 12/02 1815 97.8 90 16 82/60 98 Ventilator 60% 12/02 1317 96.7 138 18 182/98 98 Room Air 12/02 1155 96.4 103 18 151/88 92 Room Air 12/02 1016 95.6 81 20 214/109 95 Room Air Intake & Output 12/03 1600 12/03 0800 12/03 0000 Intake Total 1682 1555 Output Total 239 141 Balance 1443 1414 Intake, Blood 50 Product Intake, IV 1632 1555 Output, 25 75 Gastric Drainage Output, Stool 0 0 Output, Urine 214 66 Patient 190 lb Weight Exam General Appearance: awake, comfortable, on mechanical ventilation Head: atraumatic, normal appearance Neck: supple Respiratory: clear lungs anteriorly with decreased breath sounds, the trachea is midline Cardiovascular: regular rate/rhythm, heart sounds are distant Abdomen: distended, absent bowel sounds, dressings in place, colostomy appears pink Extremities: no edema Skin: intact, normal color, warm/dry Results Last 24 Hrs of Lab Results: Laboratory Tests 12/03/16 0555: Lactic Acid 3.8 H 12/03/16 0545: pH 7.34 L, pCO2 33 L, pO2 74 L, HCO3 17 L, ABG O2 Sat (Measured) 94.0 L, P- 50 (Temp Corrected) Y, Carboxyhemoglobin 0.7 L, O2 Concentration % 40%, Temperature 98.5, Respiration Rate 24, O2 Delivery Method ESPRIT, Vent Mode AC, Expiratory Pressure 5, Tidal Volume 500, Phlebotomy Draw Site [place] 12/03/16 0430: Anion Gap 13, Estimated GFR > 60, Glucose 252 H, Calcium 7.5 L, Phosphorus 2.7 , Magnesium 1.8, Total Bilirubin 1.6 H, AST 24, ALT 24, Troponin I 0.03, Albumin 2.5 L, CBC w Diff MAN DIFF ORDERED, RBC 5.44, MCV 83.9, MCH 28.3, RDW 14.4, MPV 9.5, Segmented Neutrophils 56, Band Neutrophils 27 H, Lymphocytes 11 L, Monocytes 1 L, Metamyelocytes 4 H, Myelocytes 1 H, Platelet Estimate ADEQUATE, Polychromasia 1+, Ovalocytes FEW, Stomatocytes FEW, PUBS MCHC 33.7, Fld Total RBCs Counted 100 12/03/16 0030: Urine Osmolality 524, Ur Random Creatinine 183.8, Ur Random Sodium 30, Ur Random Potassium 85.9, Fraction Sodium Excret 0.1 12/03/16 0015: Lactic Acid 4.0 H 12/02/160: pH 7.34 L, pCO2 36, pO2 108 H, HCO3 19 L, ABG O2 Sat (Measured) 97.0, P-50 ( Temp Corrected) N, Carboxyhemoglobin 0.7 L, O2 Concentration % 40%, Temperature 97.8, Respiration Rate 20, O2 Delivery Method ESPRIT VENT, Vent Mode AC, Expiratory Pressure 5, Tidal Volume 500, Phlebotomy Draw Site [place] 12/02/162044: Anion Gap 12, Estimated GFR > 60, Glucose 217 H, Lactic Acid 3.5 H, Calcium 8.0 L, Phosphorus 2.8, Magnesium 1.3 L, Total Bilirubin 1.7 H, AST 20, ALT 24 , Troponin I 0.06, Albumin 2.7 L, PT 13.3 H, INR 1.27 H, CBC w Diff NO MAN DIFF REQ, RBC 5.66, MCV 83.4, MCH 27.9, RDW 14.1, MPV 9.4, Gran % 85.2 H, Lymphocytes % 10.2 L, Monocytes % 4.4, Eosinophils % 0.2, Basophils % 0 L, Absolute Granulocytes 5.9, Absolute Lymphocytes 0.7 L, Absolute Monocytes 0.3, Absolute Eosinophils 0, Absolute Basophils 0, PUBS MCHC 33.5 12/02/16 1905: pH 7.35, pCO2 38, pO2 151 H, HCO3 21, ABG O2 Sat (Measured) 97.0, P-50 (Temp Corrected) N, Carboxyhemoglobin 0.6 L, O2 Concentration % 60%, Temperature 97.8 , Respiration Rate 16, O2 Delivery Method ESPRIT, Vent Mode AC, Expiratory Pressure 5, Tidal Volume 500, Phlebotomy Draw Site [place] 12/02/16 1830: Sodium Cancelled, Potassium Cancelled, Chloride Cancelled, Carbon Dioxide Cancelled, Anion Gap Cancelled, BUN Cancelled, Creatinine Cancelled, Estimated GFR Cancelled, BUN/Creatinine Ratio Cancelled, Phosphorus Cancelled, Magnesium Cancelled, Troponin I Cancelled, CBC w Diff Cancelled, WBC Cancelled, RBC Cancelled, Hgb Cancelled, Hct Cancelled, MCV Cancelled, MCH Cancelled, RDW Cancelled, Plt Count Cancelled, MPV Cancelled, Gran % Cancelled, Lymphocytes % Cancelled, Monocytes % Cancelled, Eosinophils % Cancelled, Basophils % Cancelled , Absolute Granulocytes Cancelled, Segmented Neutrophils Cancelled, Absolute Lymphocytes Cancelled, Absolute Monocytes Cancelled, Absolute Eosinophils Cancelled, Absolute Basophils Cancelled, PUBS MCHC Cancelled 12/02/16 1155: Urine Color YEL, Urine Clarity CLEAR, Urine pH 6.0, Ur Specific [place] 1.025, Urine Protein TRACE H, Urine Ketones NEG, Urine Nitrite NEG, Urine Bilirubin NEG, Urine Urobilinogen 0.2, Ur Leukocyte Esterase NEG, Ur Microscopic SEDIMENT EXAMINED, Urine RBC 1-3, Urine WBC 1-3 H, Ur Epithelial Cells FEW, Urine Hemoglobin NEG, Urine Glucose NEG 12/02/16 1037: Anion Gap 15, Estimated GFR > 60, BUN/Creatinine Ratio 25.7 H, Glucose 161 H, Calcium 9.2, Total Bilirubin 1.2, AST 23, ALT 24, Alkaline Phosphatase 89, Total Protein 7.0, Albumin 4.1, Globulin 2.9, Albumin/Globulin Ratio 1.4, Lipase 66, PT 12.4, INR 1.18 H, CBC w Diff NO MAN DIFF REQ, RBC 5.34, MCV 83.5, MCH 28.6, RDW 14.3, MPV 8.9, Gran % 53.2, Lymphocytes % 36.3, Monocytes % 6.3, Eosinophils % 3.6, Basophils % 0.6, Absolute Granulocytes 5.7, Absolute Lymphocytes 3.9 H, Absolute Monocytes 0.7 H, Absolute Eosinophils 0.4, Absolute Basophils 0.1, PUBS MCHC 34.3 Diagnostic Data CXR Findings: 1. Endotracheal tube approximately 3.5 cm above [place]. Right IJ line stable. 2. NG tube not clearly visible against background film density. 3. Interval increased bibasilar airspace opacities. Impression/Plan Impression/Plan Impression/Plan: 1. S/P exploratory laparotomy and sigmoid colectomy with colostomy placement for acute abdominal perforation. 2. Respiratory failure with increased bibasilar opacities which may be related to volume resuscitation. 3. 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 4. Low urine output. 5. Ongoing metabolic acidosis due to septic shock. 6. Electrolyte abnormalities. Recommendations: * Increase respiratory rate to 26. * Check an ABG at 2 pm today. Will adjust vent as necessary. * No plans for weaning today considering worsening metabolic acidosis. * Continue nebs/TRC. * Continue fentanyl drip and monitor pain scores. * Start Ativan 1 mg every 2 hours when necessary for anxiety. * Continue to follow up culture results. * Continue empiric IV Unasyn for now. * Will call for an ID consult for further input. * Continue D5 normal saline at 125 per hour. * When the patient's urine output is greater than 30 ML per hour for several hours, will decrease his IV fluids to 75 ML per hour to avoid fluid overload. * Continue to monitor CVP's. * The patient will remain nothing by mouth until cleared by surgery. * Follow up repeat lactic acid. * Continue DVT and GI prophylaxis. * Continue all supportive care.
--- NOTE | 2016-12-03 11:30 | Cons- Infect Disease ---
General Information and HPI Consulting Request Date of Consult: 12/03/16 Requested By: ARISTIDES ALEJANDRO,DARWIN Nickerson Reason for Consult: Peritonitis Source of Information: patient, family Exam Limitations: clinical condition History of Present Illness: This is an 89-year-old man with a history of asthma, recently treated with a course of Ciprofloxacin and prednisone for a presumed bronchitis, with sputum culture positive for Klebsiella and Kluyvera, admitted on December 02 with the acute onset of abdominal pain with one episode of vomiting. On admission he had a temperature of 95.6. Laboratory data revealed a white blood cell count of 11, 000, BUN/creatinine 18 and 0.7, with normal liver enzymes, INR 1.18. Urinalysis 1-3 RBC/1-[address] of the abdomen and pelvis with IV contrast revealed intra- abdominal free air consistent with a perforation, with a large left inguinal hernia containing colon with internal foci of gas as well. He was begun on Unasyn and taken to the OR where he underwent a Kirkland's procedure for a perforated sigmoid colon. He was hypotensive in the OR, requiring Matteo- Synephrine and was given Hydrocortisone. Postop he has been afebrile. He has been sedated and remains on the ventilator. Allergies/Medications Allergies: Coded Allergies: NO KNOWN ALLERGIES (12/24/15) Home Med List: Albuterol Sulfate (Ventolin Hfa) 90 MCG HFA.AER.AD 2 PUF INH Q4-6 PRN PRN BREATHING PROBLEMS (Reported) Albuterol Sulfate/Ipratropiu (Duoneb) 3 MG/3 ML NEB 1 Vial INH/ELOY 4 TIMES/DAY PRN WHEEZING Atorvastatin Calcium 10 MG TABLET 1 TAB PO DAILY CHOLESTEROL (Reported) Furosemide (Lasix) 20 MG TABLET 1 TAB PO DAILY FLUID IN LUNGS Methylprednisolone. 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 Home Services at Home: None Smoking Status: Former Smoker Functional Ability ADLs Independent: dressing, eating, toileting, bathing. Ambulation: independent IADLs Independent: shopping, housework, finances, food prep, telephone, transportation , medication admin. Review of Systems Comments Unobtainable Exam & Diagnostic Data Last 24 Hrs of Vital Signs/I&O Vital Signs Date Time Temp Pulse Resp B/P Pulse O2 O2 Flow FiO2 Ox Delivery Rate 12/03 0837 40 12/03 0611 40 12/03 0400 98.5 110 27 110/80 95 Ventilator 40% 12/03 0400 95 Ventilator 40% 12/03 0359 40 12/03 0137 40 12/03 0000 97.5 111 24 104/58 97 Ventilator 40% 12/03 0000 97 Ventilator 40% 12/02 2215 40 12/02 2201 Ventilator 40% 12/02 2003 98 Ventilator 40% 12/02 1999 98 Ventilator 40% 12/02 1825 60 12/02 1815 97.8 90 16 82/60 98 Ventilator 60% 12/02 1317 96.7 138 18 182/98 98 Room Air 12/02 1155 96.4 103 18 151/88 92 Room Air Intake & Output 12/03 1600 12/03 0800 12/03 0000 Intake Total 1682 1555 Output Total 239 141 Balance 1443 1414 Intake, Blood 50 Product Intake, IV 1632 1555 Output, 25 75 Gastric Drainage Output, Stool 0 0 Output, Urine 214 66 Patient 190 lb Weight Physical Exam Other Physical Findings: He is awake and alert on the ventilator in no acute distress. He is afebrile. Skin reveals no rash. HEENT exam is negative. Neck is supple with no adenopathy; right IJ triple catheter with no inflammation at the site. Lungs are clear. Heart regular rhythm with no murmur. Abdomen is distended, no bowel sounds audible, colostomy with no output. Back no CVA tenderness. Extremities no cyanosis, clubbing or edema. Neuro is without focality. Edward catheter is in place. Last 24 Hours of Lab Results: Laboratory Tests 12/03 12/03 12/03 12/03 0930 0555 0545 0430 Blood Gas pH (7.35 - 7.45 PH) 7.34 L pCO2 (35 - 45 TORR) 33 L pO2 (80 - 100 TORR) 74 L HCO3 (21 - 28 MEQ/L) 17 L ABG O2 Sat (Measured) (>96.0 %) 94.0 L P-50 (Temp Corrected) Y Carboxyhemoglobin (1.5 - 5.0 %) 0.7 L O2 Concentration % 40% Temperature (97.0 - 100.0 FARH) 98.5 Respiration Rate (BPM) 24 O2 Delivery Method ESPRIT Vent Mode AC Expiratory Pressure (CMH2O/P) 5 Tidal Volume (CC) 500 Chemistry Sodium (137 - 145 mmol/L) 137 Potassium (3.5 - 5.1 mmol/L) 4.4 Chloride (98 - 107 mmol/L) 105 Carbon Dioxide (22 - 30 mmol/L) 19 L Anion Gap (5 - 16) 13 BUN (9 - 20 mg/dL) 22 H Creatinine (0.7 - 1.2 mg/dL) 1.1 Estimated GFR (>60 ml/min) > 60 Glucose (65 - 99 mg/dL) 252 H Lactic Acid (0.7 - 2.1 mmol/L) 3.4 H 3.8 H Calcium (8.4 - 10.2 mg/dL) 7.5 L Phosphorus (2.5 - 4.5 mg/dL) 2.7 Magnesium (1.6 - 2.3 mg/dL) 1.8 Total Bilirubin (0.2 - 1.3 mg/dL) 1.6 H AST (17 - 59 U/L) 24 ALT (21 - 72 U/L) 24 Troponin I (<0.11 ng/ml) 0.03 Albumin (3.5 - 5.0 g/dL) 2.5 L Hematology CBC w Diff MAN DIFF ORDERED WBC (4.8 - 10.8 /CUMM) 12.1 H RBC (4.70 - 6.10 /CUMM) 5.44 Hgb (14.0 - 18.0 G/DL) 15.4 Hct (42 - 52 %) 45.6 MCV (80.0 - 94.0 FL) 83.9 MCH (27.0 - 31.0 PG) 28.3 RDW (11.5 - 14.5 %) 14.4 Plt Count (130 - 400 /CUMM) 177 MPV (7.4 - 10.4 FL) 9.5 Segmented Neutrophils (42.2 - 75.2 %) 56 Band Neutrophils (0.0 - 5.0 %) 27 H Lymphocytes (20.5 - 51.1 %) 11 L Monocytes (1.7 - 9.3 %) 1 L Metamyelocytes (0.0 - 1.0 %) 4 H Myelocytes (0 - 0 %) 1 H Platelet Estimate (ADEQUATE) ADEQUATE Polychromasia 1+ Ovalocytes FEW Stomatocytes FEW PUBS MCHC (33.0 - 37.0 G/DL) 33.7 Miscellaneous Phlebotomy Draw Site [place] Other Body Source Fld Total RBCs Counted (%) 100 12/03 12/03 12/02 0030 0015 2140 Blood Gas pH (7.35 - 7.45 PH) 7.34 L pCO2 (35 - 45 TORR) 36 pO2 (80 - 100 TORR) 108 H HCO3 (21 - 28 MEQ/L) 19 L ABG O2 Sat (Measured) (>96.0 %) 97.0 P-50 (Temp Corrected) N Carboxyhemoglobin (1.5 - 5.0 %) 0.7 L O2 Concentration % 40% Temperature (97.0 - 100.0 FARH) 97.8 Respiration Rate (BPM) 20 O2 Delivery Method ESPRIT VENT Vent Mode AC Expiratory Pressure (CMH2O/P) 5 Tidal Volume (CC) 500 Chemistry Lactic Acid (0.7 - 2.1 mmol/L) 4.0 H Miscellaneous Phlebotomy Draw Site [place] Urines Urine Osmolality (300 - 1000 MOSM/KG) 524 Ur Random Creatinine (mg/dL) 183.8 Ur Random Sodium (30 - 90 mmol/L) 30 Ur Random Potassium (mmol/L) 85.9 Fraction Sodium Excret (<1% %) 0.1 12/025 1905 1830 Blood Gas pH (7.35 - 7.45 PH) 7.35 pCO2 (35 - 45 TORR) 38 pO2 (80 - 100 TORR) 151 H HCO3 (21 - 28 MEQ/L) 21 ABG O2 Sat (Measured) (>96.0 %) 97.0 P-50 (Temp Corrected) N Carboxyhemoglobin (1.5 - 5.0 %) 0.6 L O2 Concentration % 60% Temperature (97.0 - 100.0 FARH) 97.8 Respiration Rate (BPM) 16 O2 Delivery Method ESPRIT Vent Mode AC Expiratory Pressure (CMH2O/P) 5 Tidal Volume (CC) 500 Chemistry Sodium (137 - 145 mmol/L) 135 L Cancelled Potassium (3.5 - 5.1 mmol/L) 4.6 Cancelled Chloride (98 - 107 mmol/L) 101 Cancelled Carbon Dioxide (22 - 30 mmol/L) 23 Cancelled Anion Gap (5 - 16) 12 Cancelled BUN (9 - 20 mg/dL) 18 Cancelled Creatinine (0.7 - 1.2 mg/dL) 0.9 Cancelled Estimated GFR (>60 ml/min) > 60 Cancelled BUN/Creatinine Ratio Cancelled Glucose (65 - 99 mg/dL) 217 H Lactic Acid (0.7 - 2.1 mmol/L) 3.5 H Calcium (8.4 - 10.2 mg/dL) 8.0 L Phosphorus (2.5 - 4.5 mg/dL) 2.8 Cancelled Magnesium (1.6 - 2.3 mg/dL) 1.3 L Cancelled Total Bilirubin (0.2 - 1.3 mg/dL) 1.7 H AST (17 - 59 U/L) 20 ALT (21 - 72 U/L) 24 Troponin I (<0.11 ng/ml) 0.06 Cancelled Albumin (3.5 - 5.0 g/dL) 2.7 L Coagulation PT (9.4 - 12.5 SEC) 13.3 H INR (0.90 - 1.17) 1.27 H Hematology CBC w Diff NO MAN DIFF REQ Cancelled WBC (4.8 - 10.8 /CUMM) 6.9 Cancelled RBC (4.70 - 6.10 /CUMM) 5.66 Cancelled Hgb (14.0 - 18.0 G/DL) 15.8 Cancelled Hct (42 - 52 %) 47.3 Cancelled MCV (80.0 - 94.0 FL) 83.4 Cancelled MCH (27.0 - 31.0 PG) 27.9 Cancelled RDW (11.5 - 14.5 %) 14.1 Cancelled Plt Count (130 - 400 /CUMM) 165 Cancelled MPV (7.4 - 10.4 FL) 9.4 Cancelled Gran % (42.2 - 75.2 %) 85.2 H Cancelled Lymphocytes % (20.5 - 51.1 %) 10.2 L Cancelled Monocytes % (1.7 - 9.3 %) 4.4 Cancelled Eosinophils % (0 - 5 %) 0.2 Cancelled Basophils % (0.0 - 2.0 %) 0 L Cancelled Absolute Granulocytes (1.4 - 6.5 /CUMM) 5.9 Cancelled Segmented Neutrophils Cancelled Absolute Lymphocytes (1.2 - 3.4 /CUMM) 0.7 L Cancelled Absolute Monocytes (0.10 - 0.60 /CUMM) 0.3 Cancelled Absolute Eosinophils (0.0 - 0.7 /CUMM) 0 Cancelled Absolute Basophils (0.0 - 0.2 /CUMM) 0 Cancelled PUBS MCHC (33.0 - 37.0 G/DL) 33.5 Cancelled Miscellaneous Phlebotomy Draw Site [place] 12/02 1155 Urines Urine Color (YEL,AMB,STR) YEL Urine Clarity (CLEAR) CLEAR Urine pH (5.0 - 8.0) 6.0 Ur Specific [place] (1.001 - 1.035) 1.025 Urine Protein (NEG,<30 MG/DL) TRACE H Urine Ketones (NEG) NEG Urine Nitrite (NEG) NEG Urine Bilirubin (NEG) NEG Urine Urobilinogen (0.1 - 1.0 EU/dl) 0.2 Ur Leukocyte Esterase (NEG) NEG Ur Microscopic SEDIMENT EXAMINED Urine RBC (0 - 5 /HPF) 1-3 Urine WBC (0 - 2 /HPF) 1-3 H Ur Epithelial Cells (NONE,FEW) FEW Urine Hemoglobin (NEG) NEG Urine Glucose (N MG/DL) NEG Last 24 Hours of Adrian Results: Blood cultures 2 December 02 (postop) negative Sputum culture December 02 negative Urine culture December 02 negative Diagnostic Data Recent Imaging Findings: Chest x-ray December 03 bibasilar densities, right greater than left CT of the abdomen and pelvis with IV contrast December 02 revealed intra-abdominal free air consistent with a perforation; a large left inguinal hernia containing colon with internal foci of gas as well Assessment/Plan Assessment/Plan Impression: This is an 89-year-old man recently treated with Ciprofloxacin and prednisone for a presumed bronchitis, admitted on December 02 with the acute onset of abdominal pain and vomiting, found on CAT scan to have free air consistent with a perforation, now status post Kirkland's procedure for a perforated sigmoid colon, possibly secondary to diverticulitis. He was hypotensive intraoperatively, likely secondary to sepsis, and he will need to be continued on broad-spectrum antibiotics postoperatively for at least one week. Unfortunately no OR cultures were sent; therefore his antibiotic regimen will need to be empiric. Suggestion: 1. Follow-up recent cultures 2. Would remove right IJ triple-lumen catheter as soon as possible 3. Discontinue Unasyn 4. Begin Zosyn 4.5 g IV every 8 hours Consult Acknowledgment - Thank you for your consult request.
--- NOTE | 2016-12-03 12:35 | Operative Report ---
Operative/Inv Procedure Report Surgery Date: 12/02/16 Name of Procedure: Kirkland's Pre-Operative Diagnosis: Perforated viscus, left inguinal hernia Post-Operative Diagnosis: Perforated sigmoid colon, fecal peritonitis, left inguinal hernia Estimated Blood Loss: antoine Surgeon/Service Desk Analyst: ARISTIDES ALEJANDRO,DARWIN KOCH Anesthesia: general endotracheal tube Operative/Procedure Note Note: Patient was positioned supine, after induction of general anesthesia, a tap block was performed, IV antibiotics were given and then the abdomen was clipped prepped and draped from the nipples to the groin in the usual sterile fashion. A midline incision was made with a 10 blade centered at the umbilicus approximately 12 cm long. The incision was deepened with cautery through Elvin' s fascia clearing off the linea alba first then carefully incising it avoiding injury to the underlying bowel. The abdomen was explored there was obvious stool and free fluid throughout but mostly in the lower abdomen, there was no fibrin or pus. We found the perforation it was one large hole in the proximal sigmoid colon which itself was long and tortuous and part of it was involved in that left inguinal hernia. The descending colon was mobilized along the white line of Toldt and the colon was divided at the enterotomy with a DANNY stapler. This and was later brought up through a hole we made through the abdominal wall in the left lower quadrant laterally well above the iliac crest, and then matured in Roseann fashion with multiple interrupted 3-0 Vicryl stay after closure of the midline. The remainder of the sigmoid colon was mobilized using LigaSure through the mesentery down to the peritoneal reflection and divided with a TA stapler, removing the specimen. We had been irrigating aspirating throughout the case to remove the stool, including a round of irrigation containing bacitracin, this was continued after the specimen was removed and included all 4 quadrants and the hernia. We ran the bowel from ligament of Treitz to the cecum. The position of the NG tube was checked and then the incision is closed in layers using 2 continuous runs of single 0 Maxon suture for the fascia then the subcutaneous layer pulse lavaged and wicked with iodoform and then singh loosely spaced for skin followed by gauze and tape. EBL minimal lap and sponge counts correct wound expectancy was dirty, IV fluids crystalloid complications none, patient tolerated the procedure well and was returned to the recovery room /ICU in satisfactory condition. He made over 350 ML's of urine during the operation.
--- NOTE | 2016-12-03 12:52 | NUR ---
intubated, sedated,fentanyl gtt infusing at 100.8 mcg/hr (increased to 125.6 mcg/hr at 1015 c/o 7/10 pain to abd.) D5NS at 125mls/hr maintained, bp manual 120/70,bp via right radial a-line 142/74, auto cuff bp 111/44, sas 3, 4/10 abd. pain, able to mouth answers, anxious at times, st 106-114, denies cp, cvp 5, intubated 40% fio2 clear lung sounds right ngt lws brown output, abd dist/soft, negative b.s., midline abd dsg cdi, left ostomy, stoma pink, no output, mitchell intact clear/coby u/o 25mls to 40 mls per hour;rij tlc intact; mag 1.8 1g x2 given, 0930 latic redrawn resulting 3.4, next lactic d/t draw at 1230, many family members anxious at bedside and in waiting room, each family waking patient often.
[2016-12-03 16:00] VITALS: BP 119/75
[2016-12-03 17:48] LABS: ABSOLUTE BASOPHIL COUNT 0 /CUMM (0.0-0.2); ABSOLUTE EOSINOPHIL COUNT 0 /CUMM (0.0-0.7); ABSOLUTE GRANULOCYTE CT 11.7 /CUMM (1.4-6.5); ABSOLUTE LYMPH COUNT 0.7 /CUMM (1.2-3.4); ABSOLUTE MONOCYTE COUNT 0.4 /CUMM (0.10-0.60); BASOPHIL % 0 % (0.0-2.0); EOSINOPHIL % 0 % (0-5); GRANULOCYTE % 91.6 % (42.2-75.2); MEAN CORPUSCULAR HGB 28.1 PG (27.0-31.0); MEAN CORPUSCULAR HGB CONC 33.4 G/DL (33.0-37.0); MEAN CORPUSCULAR VOLUME 84.1 FL (80.0-94.0); MEAN PLATELET VOLUME 9.8 FL (7.4-10.4); PLATELET COUNT 175 /CUMM (130-400); RBC DISTRIBUTION WIDTH 14.5 % (11.5-14.5); RED BLOOD CELL CT 5.12 /CUMM (4.70-6.10); WHITE BLOOD CELL COUNT 12.7 /CUMM (4.8-10.8)
--- NOTE | 2016-12-03 19:41 | NUR ---
@1932 PT HAVING EPISODES OF BRADYCARDIA WITH RATE DOWN TO 33, THEN TACHYCARDIC IN 130'S TO 150'S. AT THIS TIME PT WAS SLEEPING, AWAKENED AND STATED NO COMPLAINTS. NOTIFIED MD ADAME, PLAN IS FOR PACER IN AM, NO FURTHER INTERVENTIONS ORDERED AT THIS TIME.
[2016-12-03 20:00] VITALS: BP 122/78
--- NOTE | 2016-12-03 20:47 | NUR ---
@2000 RECEIVED PT DROWSY BUT AROUSABLE ON FENTANYL DRIP AT 125.6MCG/HR, SAS 3, ABLE TO SHAKE HEAD YES OR NO TO QUESTION OF PAIN, FAMILY AT BEDSIDE ALSO TRANSLATING IN MAORI, FAMILY STATES PT UNDERSTANDS [place]. PT WITH MULTIPLE FAMILY MEMBERS IN AND OUT OF ROOM. PT FOLLOWING COMMANDS, MOVING ALL EXTREMETIES. HR ST 100'S TO 114, AFEBRILE, SBP 120'S. INTUBATED FIO2 40% SAT 94%, NO RESPIRATORY DISTRESS NOTED. CVP 8. ABDOMEN DISTENDED AND SLIGHLY FIRM, BOWEL SOUNDS AUSCULTATED IN UPPER RIGHT AND LEFT QUADRANTS. LEFT COLOSTOMY WITH BEEFY RED STOMA NO OUTPUT NOTED. ANN IN PLACE DARK JUJU OUTPUT, 20-25ML/HR. DR ARRIAZA TALKED WITH FAMILY AT BEDSIDE.
--- NOTE | 2016-12-03 22:28 | NUR ---
PT URINE OUTPUT DECREASED TO 15-20ML/HR SINCE 7PM NOTIFIED MD DEANNA MCDANIELS, IVF INCREASED BACK TO 125ML/HR. WILL CONTINUE TO MONITOR.
[2016-12-04] VITALS: BP 116/70
[2016-12-04 04:00] VITALS: BP 132/78
--- NOTE | 2016-12-04 06:05 | PN- General Surgery ---
See Addendum Subjective Subjective: Patient remains intubated and lightly sedated. Otherwise remains relatively hemodynamically stable off pressors. Urine output was low last night, so IV fluid rate was increased to 125, which she responded well to. It is since improved to 30-50/hour. He just spiked a temp to 100.9. He nods when asked if he is in pain, but appears comfortable. Objective Vital Signs and I&Os Vital Signs Date Time Temp Pulse Resp B/P Pulse O2 O2 Flow FiO2 Ox Delivery Rate 12/04 0400 95 Ventilator 40% 12/04 0400 100.2 111 26 132/78 93 Ventilator 40% 12/04 0310 40 12/04 0045 40 12/04 0000 95 Ventilator 40% 12/04 0000 99.3 114 26 116/70 95 Ventilator 40% 12/03 2221 40 12/03 2014 40 12/03 2000 94 Ventilator 40% 12/03 1999 98.5 114 26 122/78 94 Ventilator 40% 12/03 1619 40 12/03 1600 94 Ventilator 40% 12/03 1600 98.7 100 26 119/75 94 Ventilator 40% 12/03 1433 40 12/03 1428 Ventilator 40% 12/03 1202 40 12/03 1200 93 Ventilator 40% 12/03 0837 40 12/03 0800 97.8 114 28 120/70 93 Ventilator 40% 12/03 0800 93 Ventilator 40% 12/03 0611 40 Intake & Output 12/04 0800 12/04 0000 12/03 1600 12/03 0800 12/03 0000 05 1600 Intake Total 1115 1921 1682 1555 Output Total 200 275 239 141 800 Balance 915 1646 1443 1414 -800 Intake, Blood 50 Product Intake, IV 1115 1921 1632 1555 Intake, Oral 0 0 Number 0 Bowel Movements Output, 75 25 25 75 Gastric Drainage Output, Stool 0 0 Output, Urine 125 250 214 66 800 Patient 190 lb 190 lb Weight Physical Exam: Gen.: Patient is resting, but arousable. He opens his eyes to command and nods to yes or no questions. He doses back to sleep while being examined. HEENT: Right IJ triple-lumen catheter remains in place. Cardiac: Tachycardic Pulmonary: Lungs are clear bilaterally. ET tube remains in place. Abdomen: Abdomen is round, moderately distended, but soft. No significant tenderness was elicited. No bowel sounds were heard. Nasogastric tube remains in place, with minimal output. Stoma is edematous, but pink and viable. No air or stool noted as of yet in the appliance bag. The midline dressing was changed. Both the inferior and superior packing was inched out slightly. There is small amount of serous drainage. No purulence. No surrounding erythema. [place] remain intact. Extremities: No significant lower extremity edema appreciated. Labs: Still pending today. Assessment/Plan Assessment/Plan Patient is an 89-year-old male with past medical history significant for hypertension, hyperlipidemia, and asthma, who is now postoperative day #2 status post expiratory laparotomy with Kirkland's procedure for perforated viscus. Intraoperatively he was found to have gross fecal contamination due to the perforation. At this time, he remains intubated and sedated, but stable off pressors. Plan: -He is starting to spiked a temp. His bilirubin was slightly elevated with yesterday's blood work. We will follow-up this morning and consider Tylenol administration if it remains stable. Continue Zosyn as per ID recommendations. -Continue nothing by mouth with NG tube. -IV fluids at 125 per hour. We may be able to decrease them to 100 per hour little later this morning. -He is still tachycardic this morning. Consider additional pain control. -Leave Edward in place for critical I's and O's. -Weaning trials when appropriate as per critical care. -Subcutaneous heparin and Alps for DVT prophylaxis. -Protonix for GI prophylaxis. -Daily dry dressing change. We will continue to injure packing out slightly each day until it is removed. -Will discuss with attending. Core Measures/Miscellaneous Edward Catheter Date In: 12/02/16 Still Needed? Yes Venous Thromboembolism VTE Risk Factors: Acute medical illness, Age > 40, Surgery VTE Contraindications: No Contraindications VTE Prophylaxis Ordered Inpt Mech & Pharm VTE Diagnosis: No Beta Abelardo Is Beta Abelardo a Home Med? No Antibiotics Is Patient on Antibiotics? Yes If Yes: infection
[2016-12-04 06:28] LABS: ABSOLUTE BASOPHIL COUNT 0 /CUMM (0.0-0.2); ABSOLUTE EOSINOPHIL COUNT 0 /CUMM (0.0-0.7); ABSOLUTE GRANULOCYTE CT 9.7 /CUMM (1.4-6.5); ABSOLUTE LYMPH COUNT 0.7 /CUMM (1.2-3.4); ABSOLUTE MONOCYTE COUNT 0.3 /CUMM (0.10-0.60); BASOPHIL % 0.1 % (0.0-2.0); EOSINOPHIL % 0 % (0-5); GRANULOCYTE % 90.1 % (42.2-75.2); MEAN CORPUSCULAR HGB 28.2 PG (27.0-31.0); MEAN CORPUSCULAR HGB CONC 33.2 G/DL (33.0-37.0); MEAN CORPUSCULAR VOLUME 84.8 FL (80.0-94.0); MEAN PLATELET VOLUME 9.8 FL (7.4-10.4); PLATELET COUNT 167 /CUMM (130-400); RBC DISTRIBUTION WIDTH 15.4 % (11.5-14.5); RED BLOOD CELL CT 4.95 /CUMM (4.70-6.10); WHITE BLOOD CELL COUNT 10.7 /CUMM (4.8-10.8)
--- NOTE | 2016-12-04 07:54 | RADIOLOGY REPORT ---
EXAMINATION: XR PORTABLE CHEST CLINICAL INFORMATION: Intubated patient with respiratory distress COMPARISON: Chest x-ray from 12/03/2016 TECHNIQUE: Endotracheal tube is positioned approximately 3 cm above the fernando. There is a right IJ central line extending to the region of the right atrium. The tip is not well delineated. There is an enteric tube with the tip is obscured FINDINGS: Endotracheal tube is positioned approximately 3 cm above the fernando. There is a right IJ central line extending to the region of the right atrium. The tip is not well delineated. There is an enteric tube, but the tip is obscured for technical reasons. Heart size and mediastinal contours unchanged. There is no change in overall expansion of the lungs with continued bibasilar opacities, likely related to some atelectasis. No new focal findings. No pneumothorax is appreciated. . IMPRESSION: No significant change in overall expansion or appearance of the lungs with bibasilar lung opacities likely related to atelectasis. The tip of the IJ central line and enteric tubes obscured for technical reasons, as previously. Endotracheal tube in place.
[2016-12-04 08:00] VITALS: BP 102/60
--- NOTE | 2016-12-04 08:25 | PN- Resident CRCU ---
Subjective HPI/CRCU Issues: Patient is a 89-year-old male with past medical history significant for asthma, hypertension, bilateral inguinal hernia status post repair 30 years ago came to the hospital yesterday with acute abdominal pain. In the ER he was eventually found to have acute perforation of sigmoid colon with peritonitis, underwent emergent surgery with Henny's procedure. He was subsequently sent to ICU for hemodynamic stabilization, further care as patient is at high risk for infection /respiratory failure postextubation. upon transfering to ICU he was found to have hypotension and placed on the family have normal saline date 120 femoral per hour, received around 2 L of normal saline boluses and a single dose of Augmentin. He was on ventilator with a CVP of initially 3-4, later improved to 8-10. Overnight he received D51/2NS @125ml/hr. 24 Hour Events: I saw and examined the patient today. he is lying comfortably on the bed. Able to follow commands. No significant events overnight. Objective Vital Signs & I&O Last 8 Hrs of Vitals and I&O: Intake & Output 12/04 1600 Intake Total 1578 Output Total 2100 Balance -522 Intake, IV 1578 Intake, Oral 0 Output, 100 Gastric Drainage Output, Stool 0 Output, Urine 2000 VS Febrile with a Tmax of 100 HR - 90-110 BP 90-110/60-70mmHg CVP around 7-8 On mechanical ventilation ABG in the morning - pH 7.40, PaCO2 32, PaO2 76, HCO3 of 19 ABG after reducing RR to 20 (from 29) - pH 7.40, PaCO2 15, PaO2 102, HCO3 9 Exam General Appearance: well developed/nourished, no apparent distress, alert, awake , comfortable Head: atraumatic, normal appearance Neck: right IJ in place Respiratory: normal breath sounds, chest non-tender, no respiratory distress, Intubated, mechanically ventilated. Cardiovascular: regular rate/rhythm, normal peripheral pulses, tachycardia Gastrointestinal: soft, non-tender, diminished breath sounds. Extremities: normal inspection, normal capillary refill, normal range of motion Cranial Nerves: normal hearing, normal speech, PERRL Skin: Incision well dressed. Weaning Parameters NIF: 42 Minute Volume: 13 Resp rate: 24 Vt: 520 Heart Rate: 107 Weaning Schedule Start Time: 0940 Minute Volume: 13 Resp Rate: 24 Vt: 520 Heart Rate: 107 Current Medications: Current Medications Sig/Ar Start time Last Medication Dose Route Stop Time Status Admin Acetaminophen 1,000 MG ONCE ONE 12/04 629 DC 12/04 N/A 1 UNIT IV 12/04 0644 0657 Acetaminophen 1,000 MG Q8 PRN 12/02 1800 DC IV 12/03 2159 Albuterol Sulfate 3 ML Q4 12/02 2200 AC 12/04 INH 1426 Dextrose/Sodium 1,000 ML Q13H 12/04 1445 AC 12/04 Chloride IV 1451 Dextrose/Sodium 1,000 ML Q13H 12/03 2000 DC 12/04 Chloride IV 0859 Dextrose/Sodium 1,000 ML Q8H 12/02 2315 DC 12/03 Chloride IV 1454 Fentanyl Citrate 1,000 MCG Q8H 12/04 1315 CAN Sodium Chloride 250 ML IV Fentanyl Citrate 1,000 MCG Q10H 12/04 1300 AC 12/04 Sodium Chloride 250 ML IV 1451 Fentanyl Citrate 1,000 MCG Q10H 12/03 1200 DC 12/04 Sodium Chloride 250 ML IV 0658 Furosemide 40 MG ONCE ONE 12/04 1045 DC 12/04 IV 12/04 1046 1105 Heparin Sodium 5,000 UNIT Q8 12/02 2200 AC 12/04 (Porcine) SC 1450 Ipratropium Walsh 2.5 ML Q4 12/02 2200 AC 12/04 INH 1426 Lorazepam 1 MG Q2P PRN 12/03 1330 AC 12/04 IV 1506 Morphine Sulfate 2 MG Q3P PRN 12/04 1300 AC IV Morphine Sulfate 2 MG Q3P PRN 12/02 1800 DC 12/02 IV 1932 Morphine Sulfate 4 MG Q3P PRN 12/02 1800 AC 12/04 IV 1259 Ondansetron HCl 4 MG Q6P PRN 12/02 1800 AC IV Pantoprazole Sodium 40 MG DAILY 12/02 2200 AC 12/04 IV 0904 Piperacillin Sod/ 4.5 GM Q8H 12/03 1400 AC 12/04 Tazobactam Sod IV 1450 Sodium Chloride 100 ML Potassium Phosphate 15 mMol ONE ONE 12/04 0930 DC 12/04 Dextrose/Water 250 ML IV 12/04 1333 1059 Impression/Plan Impression/Problem List Impression: Patient is a 89-year-old male with past medical history significant for asthma, hypertension, bilateral inguinal hernia status post repair 30 years ago came to the hospital yesterday with acute abdominal pain. In the ER he was eventually found to have acute perforation of sigmoid colon with peritonitis, underwent emergent surgery with Henny's procedure. He was subsequently sent to ICU for hemodynamic stabilization, further care as patient is at high risk for infection /respiratory failure postextubation. Yesterday he was found to have hypotension and placed on the family have normal saline date 120 femoral per hour, received around 2 L of normal saline boluses and a single dose of Augmentin. He was on ventilator with a CVP of initially 3- 4, later improved to 8-10. Today morning he is able to open his eyes and respond to commands. Problem List: 1. ASTHMA 2. Dyslipidemia 3. Peritonitis 4. Left inguinal hernia 5. Perforated abdominal viscus Pain Ratin Tomorrow's Labs & Rationales: ICU bundle cbc cxr Plan Respiratory: Intubated and mechanically ventilated * On fentanyl drip * alert and awake, responding to commands * ABG in the morning - pH of 7.34, PaCO2 36, PaO2 74, HCO3 19 which is not enough compensation to his metabolic acidosis. * However a repeat ABG afternoon shows a pH of 7.35, PaCO2 15, PaO2 108, HCO3 9. * He received a single dose of solucortef 50mg once * CPAP trials History of respiratory infection * Patient had chronic productive cough which was recently evaluated with sputum cultures * It revealed growth of Kluyer ascorbata and klebsiella * He was subsequently started on ciprofloxacin and a steroid taper. * He is still taking prednisolone for bronchospasm. Infectious Diseases: Sepsis secondary to peritonitis * Patient is at high risk for infection post operatively as his peritoneum is filled with fecal matter. * He was given unasyn 3gm Q6 postoperatively along with a single dose of solucortef 50mg. * Today his white count is normal with bandemia, ID is consulted. * Blood cultures and urine cultures are postoperatively however no OR cultures available. * On Zosyn 4.5 gm Q8hrs after discontinuation of unasyn * Will follow up with white count and cultures. * He is febrile with Tmax of 100 overnight. Cardiovascular: Hypertensive and tachycardic * Received fluids overnight, with improvement in urine output. * A single dose of furosemide 40mg IV given in the morning, total of 2L urine output after that. * However in the afternoon he is tachycardic and hypertensive - a single dose of ativan given. * Remains stable after that * EKG and trops are negative. Hematology: Leukocytosis with bandemia * white count of 12 with bandemia 41 yesteray, * Reactive to steroids vs infection (E.Coli) * Started on Zosyn * Will follow daily CBC Metabolic: Lactic acidosis * Lactic acid level today is trending down - 2.8 to 2.3 * compensation from mechanical ventilation. Alimentary: NPO with NG tube decompensation. Will decide further based on surgery recommendations. Neurological: Intact Skin: Colostomy bag in place without any evident drainage, site looks clean. incision site dressed well. DVT/Prophylaxis: sc lovenox Code Status: Full Code
--- NOTE | 2016-12-04 10:39 | PN- CRCU ---
Subjective HPI/Critical Care Issues: pt seen and examined 40% fio2 mechanical ventilation ROS limited given intubated state 100.9 tmax tcurrent 99.1 wbc 10.7 started on Zosyn by Dr. Pichardo 12/03 Objective Current Medications: Current Medications Sig/Ar Start time Last Medication Dose Route Stop Time Status Admin Acetaminophen 1,000 MG ONCE ONE 12/04 629 DC 12/04 N/A 1 UNIT IV 12/04 0644 0657 Acetaminophen 1,000 MG Q8 PRN 12/02 1800 DC IV 12/03 2159 Albuterol Sulfate 3 ML Q4 12/02 2200 AC 12/04 INH 1018 Ampicillin Sodium/ 3,000 MG Q6 12/02 2359 DC 12/03 Sulbactam Sodium IV 1200 Sodium Chloride 100 ML Cefazolin Sodium 3 GM ONCE ONE 12/03 1430 CAN N/A 1 UNIT IV 12/03 1514 Dextrose/Sodium 1,000 ML Q13H 12/03 2000 AC 12/04 Chloride IV 0859 Dextrose/Sodium 1,000 ML Q8H 12/02 2315 DC 12/03 Chloride IV 1454 Fentanyl Citrate 1,000 MCG Q10H 12/03 1200 AC 12/04 Sodium Chloride 250 ML IV 0658 Fentanyl Citrate 1,000 MCG ONCE ONE 12/02 1945 DC 12/02 Sodium Chloride 250 ML IV 12/03 2044 2126 Heparin Sodium 5,000 UNIT Q8 12/02 220 AC 12/04 (Porcine) SC 0612 Ipratropium Colon 2.5 ML Q4 12/02 2200 AC 12/04 INH 1018 Lorazepam 1 MG Q2P PRN 12/03 1330 AC IV Magnesium Sulfate 1 GM Q2H 12/03 0800 DC 12/03 Dextrose/Water 100 ML IV 12/03 1159 1010 Morphine Sulfate 2 MG Q3P PRN 12/02 1800 AC 12/02 IV 1932 Morphine Sulfate 4 MG Q3P PRN 12/02 1800 AC IV Non-Formulary 0 SEE ADMIN CRITERIA 12/03 1315 CAN Medication ANY Ondansetron HCl 4 MG Q6P PRN 12/02 1800 AC IV Pantoprazole Sodium 40 MG DAILY 12/02 2200 AC 12/04 IV 0904 Piperacillin Sod/ 4.5 GM Q8H 12/03 1400 AC 12/04 Tazobactam Sod IV 0611 Sodium Chloride 100 ML Potassium Phosphate 15 mMol ONE ONE 01/07 0930 AC Dextrose/Water 250 ML IV 12/04 1333 Potassium Phosphate 15 mMol ONE ONE 12/03 0745 DC 12/03 Dextrose/Water 250 ML IV 12/03 1148 0922 Vital Signs & I&O Last 24 Hrs of Vitals and I&O: Vital Signs Date Time Temp Pulse Resp B/P Pulse O2 O2 Flow FiO2 Ox Delivery Rate 12/04 08 40 12/04 08 96 Ventilator 40% 12/04 08 99.1 102 26 102/60 96 Ventilator 40% 12/04 0755 99.1 12/04 0657 100.9 12/04 0604 40 12/04 0400 95 Ventilator 40% 12/04 0400 100.2 111 26 132/78 93 Ventilator 40% 12/04 0310 40 12/04 0045 40 12/04 0000 95 Ventilator 40% 12/04 0000 99.3 114 26 116/70 95 Ventilator 40% 12/03 2221 40 12/03 2014 40 12/03 2000 94 Ventilator 40% 12/03 1999 98.5 114 26 122/78 94 Ventilator 40% 12/03 1619 40 12/03 1600 94 Ventilator 40% 12/03 1600 98.7 100 26 119/75 94 Ventilator 40% 12/03 1433 40 12/03 1428 Ventilator 40% 12/03 1202 40 12/03 1200 93 Ventilator 40% Intake & Output 12/04 1600 12/04 0812/04 0000 Intake Total 1333.7 1115 Output Total 425 200 Balance 908.7 915 Intake, IV 1333.7 1115 Intake, Oral 0 0 Output, 150 75 Gastric Drainage Output, Stool 0 Output, Urine 275 125 Exam Other Physical Findings: gen awake heent ett cvs s1, s2 lungs transmitted abd diminished bs+ ext no edema Results Last 24 Hrs of Lab Results: Laboratory Tests 12/04/16 0550: pH 7.39, pCO2 32 L, pO2 76 L, HCO3 19 L, ABG O2 Sat (Measured) 96.0, P-50 ( Temp Corrected) N, Carboxyhemoglobin 0.9 L, O2 Concentration % .40, Respiration Rate 26, O2 Delivery Method VENT, Vent Mode A/C, Expiratory Pressure 5, Tidal Volume 500, Phlebotomy Draw Site MARK 12/04/16 0501: Anion Gap 13, Estimated GFR 52 L, Glucose 160 H, Calcium 7.3 L, Phosphorus 2.8, Magnesium 2.2, Total Bilirubin 1.3, AST 21, ALT 25, Albumin 2.3 L, CBC w Diff MAN DIFF ORDERED, RBC 4.95, MCV 84.8, MCH 28.2, RDW 15.4 H, MPV 9.8, Gran % 90.1 H, Lymphocytes % 6.8 L, Monocytes % 3.0, Eosinophils % 0, Basophils % 0.1, Absolute Granulocytes 9.7 H, Segmented Neutrophils 60, Band Neutrophils 22 H, Absolute Lymphocytes 0.7 L, Lymphocytes 12 L, Monocytes 4, Absolute Monocytes 0.3, Absolute Eosinophils 0, Absolute Basophils 0, Platelet Estimate ADEQUATE, Anisocytosis 1+, PUBS MCHC 33.2, Fld Total RBCs Counted 100 12/03/16 2235: pH 7.38, pCO2 33 L, pO2 75 L, HCO3 19 L, ABG O2 Sat (Measured) 95.0 L, Carboxyhemoglobin 0.8 L, O2 Concentration % 40%, Respiration Rate 26, O2 Delivery Method VENT, Vent Mode VC/AC, Expiratory Pressure 5, Tidal Volume 500, Phlebotomy Draw Site LEFT RADIAL 12/03/161951: Lactic Acid 2.8 H 12/03/16 1715: Anion Gap 11, Estimated GFR > 60, Glucose 214 H, Lactic Acid 3.1 H, Calcium 7.5 L, Phosphorus 3.2, Magnesium 2.2, Total Bilirubin 1.4 H, AST 22, ALT 24, Albumin 2.4 L, CBC w Diff MAN DIFF ORDERED, RBC 5.12, MCV 84.1, MCH 28.1, RDW 14.5, MPV 9.8, Gran % 91.6 H, Lymphocytes % 5.6 L, Monocytes % 2.8, Eosinophils % 0, Basophils % 0 L, Absolute Granulocytes 11.7 H, Segmented Neutrophils 28 L, Band Neutrophils 41 H, Absolute Lymphocytes 0.7 L, Lymphocytes 21, Monocytes 8, Absolute Monocytes 0.4, Absolute Eosinophils 0, Absolute Basophils 0, Metamyelocytes 2 H, Platelet Estimate ADEQUATE, Normocytic RBCs VERIFIED, Normochromic RBCs VERIFIED, PUBS MCHC 33.4 12/03/16 1420: pH 7.35, pCO2 37, pO2 70 L, HCO3 20 L, ABG O2 Sat (Measured) 95.0 L, P-50 ( Temp Corrected) NO, Carboxyhemoglobin 0.9 L, O2 Concentration % 40%, Temperature 97.8, Respiration Rate 26, O2 Delivery Method VENT, Vent Mode AC, Expiratory Pressure 5, Tidal Volume 500, Phlebotomy Draw Site A LINE 12/03/16 1400: Lactic Acid 3.0 H Impression/Plan Impression/Plan Impression/Plan: Impression 89 year old man * 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 for acute abdominal perforation * Respiratory failure with increased bibasilar opacitie, maybe fluid overload * 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 * lactic acidosis Plan Respiratory - reduce RR to 20 - abg tomorrow - cxr tomorrow - TRC/Nebs - CPAP trials for excercise ID - Zosyn, ID f/u, cx monitoring, fever/wbc monitoring - likely GI source CVS - monitor hemodynamics - obtain peripheral iv access, with intention to remove R IJ shortly - monitor CVP while catheter in place Heme - monitor cbc, coags Metabolic - trend lactate - ins/outs, sis, 3.4 positive balance - 40 lasix iv once and monitor ins/outs Alimentary - NPO, per surgery - D5 1/2 NS Neuro - sedation as necessary for comfort DVT prophylaxis at all times TTS 50 min Code Status: Full Code
--- NOTE | 2016-12-04 11:17 | NUR ---
0800: RECEIVED PT IN DORON CHAIR. A+OX3, ON RA. LUNGS CLEAR, SOB/E. CURRENT SMOKER, REFUSING NICOTINE PATCH. AFIB ON MONITOR WITH PVC'S. RATE 100-150'S. AFEBRILE, MANUAL B/P 130/76. DR AGUILAR (CARDIOLOGY) AWARE. ABDOMEN OBESE, SOFT, +BS, +FLATUS. NO BM SINCE 12/01/16. NPO FOR O.R TODAY. ANN ON ICE TO BEDSIDE. DRAINING CLEAR YELLOW URINE, PT RECEIVED 40MG IV LASIX THIS MORNING. BLE EDEMATOUS, WEEPING, ELEVATED. #22 RH #22 RF HEP LOCKED, FLUSHING WELL. HEP GTT STOPPED AT 6AM PER SURGERY. PT TO HAVE PACEMAKER PLACED TODAY.
--- NOTE | 2016-12-04 11:21 | NUR ---
0900: 25MG PO LOPRESSOR GIVEN PER CARDIOLOGY FOR INCREASED HEART RATE, WILL MONITOR.
--- NOTE | 2016-12-04 11:22 | NUR ---
0800: RECEIVED PT IN BED. SAS 4, ON FENTANYL GTT @ 125 MCG. PT ALERT, ABLE TO FOLLOW COMMANDS. SINUS TACH ON MONITOR WITH PVC'S. RATE 100-120'S. MANUAL B/P 102/60, RIGHT RADIAL A LINE IN PLACE READING B/P 121/21. LOW GRADE TEMP 99.1 VIA TEMPORAL ARTERY. ON VENT #8 ETT TAPED TO THE RIGHT AT 22CM, VENT SETTINGS AC-26 500/40% PEEP 5. LUNGS CLEAR. ABDOMEN D/F ABSENT BOWEL SOUNDS, MIDLINE SURGICAL SITE DRESSING CD&I. COLOSTOMY TO LEFT ABDOMEN, STOMA PINK, NO OUTPUT AT THIS TIME. NGT TO RIGHT NARE TO LOW WALL SUCTION, GREEN OUTPUT. ANN IN PLACE TO BEDSIDE DRAINAGE, JUJU COLORED URINE, 30-60 ML/HR. RIJ TLC IN PLACE, DRESSING INTACT, +BLOOD RETURN, BIOPATCH IN PLACE. #16 LAC #18 LH, D5-NS RUNNING VIA LH FENT GTT RUNNING VIA LAC. CVP 11. ALPS IN PLACE, BILATERAL WRIST RESTRAINTS IN PLACE. FAMILY AT BEDSIDE.
--- NOTE | 2016-12-04 11:35 | NUR ---
VENT SETTINGS CHANGED BY RT RONALDO, AC-20 500/40% PEEP 5. PT TO HAVE CPAP TRIAL AT SOME POINT TODAY, AWAITING HEART RATE TO SLOW DOWN.
[2016-12-04 12:00] VITALS: BP 160/80
--- NOTE | 2016-12-04 14:11 | NUR ---
PER FAMILY PT COMPLAINING OF CHEST PRESSURE AND SOB. EKG TROPONIN AND ABG ORDERED. LABS SENT, ABG DONE, EKG BEING DONE AT THIS TIME. VENT CHANGED TO LEFT SIDE OF MOUTH AT THIS TIME, PT TRYING TO TONGUE TUBE OUT. MD XIAO IN TO ASSESS PT. PT'S HEART RATE IN THE 120'S, MANUAL B/P 162/84. WILL MONITOR.
--- NOTE | 2016-12-04 15:10 | NUR ---
1MG IV ATIVAN GIVEN PER MD OSORIO AT THIS TIME TO HELP WITH ANXIETY. FAMILY REMAINS AT BEDSIDE, PT RESTING COMFORTABLY. WILL MONITOR. ABD XRAY ORDERED.
[2016-12-04 16:00] VITALS: BP 114/68
--- NOTE | 2016-12-04 17:02 | RADIOLOGY REPORT ---
EXAMINATION: XR ABDOMEN CLINICAL INDICATION: Lactic acidosis. Tachycardia. Postoperative patient after exploratory laparotomy. COMPARISON: CT 12/02/2016 TECHNIQUE: Portable supine abdomen at 4:00 PM FINDINGS: There is a paramedian of staple line presumably in the lower ventral abdominal wall. Nasogastric tube tip projects over the left upper quadrant. The gas pattern is within normal limits for technique. A focally dilated small bowel loop in the left midabdomen may represent a focal ileus. No gross free air on supine imaging. Foci of free air noted on recent CT not evident on plain radiography. No gross mass effect organomegaly. Lower abdominal abscess noted on recent CT not evident. Unable to assess a previously noted left inguinal hernia. IMPRESSION: No gross free air or obstruction.
--- NOTE | 2016-12-04 19:50 | Event Note ---
Event Note Event Note: Patient siked a temp of 101F. Vee cultured and started on IV Tylenol 1000mg Q6 PRN IV. F/U repeat cultures.
[2016-12-04 20:00] VITALS: BP 104/56
[2016-12-05] VITALS: BP 108/70
--- NOTE | 2016-12-05 02:32 | NUR ---
@1930 PT AXILLARY TEMP 101, PT SKIN RED, HOT AND DIAPHORETIC, HR TACHYCARDIC 120'S. NOTIFIED MD JO DAVISON, TYLENOL IV X 1 ORDERED, BC AND URINE CULTURES ORDERD BY .
--- NOTE | 2016-12-05 02:35 | NUR ---
@2100 PT GIVEN FULL BATH AND BED CHANGED, PT ABDOMEN WARM TO TOUCH, FACE RED, CHECKED RECTAL TEMP 102.9, PT ALREADY RECEIVED TYLENOL AT 1930. ICE PACKS APPLIED, MD TIFFANY SMITH AWARE. CONTINUE TO MONITOR. PT FAMILY REMAINS AT BEDSIDE AND UPDATED.
[2016-12-05 04:00] VITALS: BP 102/64
--- NOTE | 2016-12-05 05:17 | PN- General Surgery ---
Subjective Subjective: POD #3 s/p exploratory laparotomy, Henny's procedure for a perforated viscus. Patient remains intubated, sedated with Fentanyl. Received Lasix IV yesterday with good response, but notably this morning, his urine output seems to be declining. Continues to be febrile to 102F, despite administration of Tylenol. Was not trialed yesterday due to tachycardia. Objective Vital Signs and I&Os Vital Signs Date Time Temp Pulse Resp B/P Pulse O2 O2 Flow FiO2 Ox Delivery Rate 12/05 0409 102.9 12/05 0400 95 Ventilator 40% 12/05 0400 102.9 120 25 102/64 94 Ventilator 40% 12/05 0338 40 12/05 0218 102.5 12/05 0101 40 12/05 0000 95 Ventilator 40% 12/05 0000 102.2 123 24 108/70 95 Ventilator 40% 12/04 2229 40 12/04 2100 102.9 12/04 2000 96 Ventilator 40% 12/04 1999 101.0 114 22 104/56 96 Ventilator 40% 12/04 1944 40 12/04 1934 101.0 12/04 1659 40 12/04 1600 94 Ventilator 40% 12/04 1600 100.6 116 22 114/68 94 Ventilator 40% 12/04 1338 40 12/04 1200 96 Ventilator 40% 12/04 1200 99.2 124 24 160/80 96 Ventilator 40% 12/04 1047 40 12/04 0826 40 12/04 0800 96 Ventilator 40% 12/04 0800 99.1 102 26 102/60 96 Ventilator 40% 12/04 0755 99.1 12/04 0657 100.9 12/04 0604 40 Intake & Output 12/05 0800 12/05 0000 12/04 1600 12/04 0800 12/04 0000 12/03 1600 Intake Total 1511.2 1578 1333.7 1115 1921 Output Total 875 2100 425 200 275 Balance 636.2 -522 908.7 915 1646 Intake, IV 1511.2 1578 1333.7 1115 1921 Intake, Oral 0 0 0 0 0 Number 0 Bowel Movements Output, 25 100 150 75 25 Gastric Drainage Output, Stool 0 0 0 Output, Urine 850 1999 275 125 250 Patient 190 lb Weight Physical Exam: Gen: Intubated, sedated on fentanyl. Grimaces when abdomen is touched. Cor: S1+S2+ Lungs: Diminished breath sounds to phil lung gay. Abd: soft, tender to palpation around incision, distended, scant BS auscultated. Stoma pink, viable, no gas or stool in bag. Small amount of brown serous liquid noted. Incision C/D/I with singh, packing x2 inched out. Ext: no edema or calf tenderness to phil lower extremities. Palpable left PT. Doppler biphasic left DP, right DP/PT. Results Last 48 Hours of Labs: Laboratory Tests 12/05 12/05 12/04 12/04 12/04 0410 0410 1708 1410 1408 Blood Gas pH (7.35 - 7.45 PH) 7.40 pCO2 (35 - 45 TORR) 15 L pO2 (80 - 100 TORR) 102 H HCO3 (21 - 28 MEQ/L) 9 L ABG O2 Sat (Measured) (>96.0 %) 97.0 P-50 (Temp Corrected) N Carboxyhemoglobin (1.5 - 5.0 %) 0.3 L O2 Concentration % 40% Respiration Rate (BPM) 20 O2 Delivery Method VENT Vent Mode AC Expiratory Pressure (CMH2O/P) 5 Tidal Volume (CC) 500 Pressure Support (CMH2O/P) 0 Chemistry Sodium (137 - 145 mmol/L) Pending 140 Potassium (3.5 - 5.1 mmol/L) Pending 4.5 Chloride (98 - 107 mmol/L) Pending 106 Carbon Dioxide (22 - 30 mmol/L) Pending 21 L Anion Gap (5 - 16) Pending 12 BUN (9 - 20 mg/dL) Pending 33 H Creatinine (0.7 - 1.2 mg/dL) Pending 1.3 H Estimated GFR (>60 ml/min) 52 L BUN/Creatinine Ratio (7 - 25 %) 25.4 H Glucose Pending Hemoglobin A1c Pending Lactic Acid (0.7 - 2.1 mmol/L) 1.9 2.3 H Calcium Pending Phosphorus Pending Magnesium Pending Total Bilirubin Pending AST Pending ALT Pending Troponin I (<0.11 ng/ml) < 0.01 Albumin Pending Hematology CBC w Diff Pending WBC Pending RBC Pending Hgb Pending Hct Pending MCV Pending MCH Pending RDW Pending Plt Count Pending MPV Pending PUBS MCHC Pending Miscellaneous Phlebotomy Draw Site RIGHT A-LINE 12/04 12/04 12/03 0550 5810 7742 Blood Gas pH (7.35 - 7.45 PH) 7.39 7.38 pCO2 (35 - 45 TORR) 32 L 33 L pO2 (80 - 100 TORR) 76 L 75 L HCO3 (21 - 28 MEQ/L) 19 L 19 L ABG O2 Sat (Measured) (>96.0 %) 96.0 95.0 L P-50 (Temp Corrected) N Carboxyhemoglobin (1.5 - 5.0 %) 0.9 L 0.8 L O2 Concentration % .40 40% Respiration Rate (BPM) 26 26 O2 Delivery Method VENT VENT Vent Mode A/C VC/AC Expiratory Pressure (CMH2O/P) 5 5 Tidal Volume (CC) 500 500 Chemistry Sodium (137 - 145 mmol/L) 141 Potassium (3.5 - 5.1 mmol/L) 4.5 Chloride (98 - 107 mmol/L) 107 Carbon Dioxide (22 - 30 mmol/L) 20 L Anion Gap (5 - 16) 13 BUN (9 - 20 mg/dL) 31 H Creatinine (0.7 - 1.2 mg/dL) 1.3 H Estimated GFR (>60 ml/min) 52 L Glucose (65 - 99 mg/dL) 160 H Calcium (8.4 - 10.2 mg/dL) 7.3 L Phosphorus (2.5 - 4.5 mg/dL) 2.8 Magnesium (1.6 - 2.3 mg/dL) 2.2 Total Bilirubin (0.2 - 1.3 mg/dL) 1.3 AST (17 - 59 U/L) 21 ALT (21 - 72 U/L) 25 Albumin (3.5 - 5.0 g/dL) 2.3 L Hematology CBC w Diff MAN DIFF ORDERED WBC (4.8 - 10.8 /CUMM) 10.7 RBC (4.70 - 6.10 /CUMM) 4.95 Hgb (14.0 - 18.0 G/DL) 13.9 L Hct (42 - 52 %) 42.0 MCV (80.0 - 94.0 FL) 84.8 MCH (27.0 - 31.0 PG) 28.2 RDW (11.5 - 14.5 %) 15.4 H Plt Count (130 - 400 /CUMM) 167 MPV (7.4 - 10.4 FL) 9.8 Gran % (42.2 - 75.2 %) 90.1 H Lymphocytes % (20.5 - 51.1 %) 6.8 L Monocytes % (1.7 - 9.3 %) 3.0 Eosinophils % (0 - 5 %) 0 Basophils % (0.0 - 2.0 %) 0.1 Absolute Granulocytes (1.4 - 6.5 /CUMM) 9.7 H Segmented Neutrophils (42.2 - 75.2 %) 60 Band Neutrophils (0.0 - 5.0 %) 22 H Absolute Lymphocytes (1.2 - 3.4 /CUMM) 0.7 L Lymphocytes (20.5 - 51.1 %) 12 L Monocytes (1.7 - 9.3 %) 4 Absolute Monocytes (0.10 - 0.60 /CUMM) 0.3 Absolute Eosinophils (0.0 - 0.7 /CUMM) 0 Absolute Basophils (0.0 - 0.2 /CUMM) 0 Platelet Estimate (ADEQUATE) ADEQUATE Anisocytosis 1+ PUBS MCHC (33.0 - 37.0 G/DL) 33.2 Miscellaneous Phlebotomy Draw Site MARK LEFT RADIAL Other Body Source Fld Total RBCs Counted (%) 100 12/03 1715 1420 Blood Gas pH (7.35 - 7.45 PH) 7.35 pCO2 (35 - 45 TORR) 37 pO2 (80 - 100 TORR) 70 L HCO3 (21 - 28 MEQ/L) 20 L ABG O2 Sat (Measured) (>96.0 %) 95.0 L P-50 (Temp Corrected) NO Carboxyhemoglobin (1.5 - 5.0 %) 0.9 L O2 Concentration % 40% Temperature (97.0 - 100.0 FARH) 97.8 Respiration Rate (BPM) 26 O2 Delivery Method VENT Vent Mode AC Expiratory Pressure (CMH2O/P) 5 Tidal Volume (CC) 500 Chemistry Sodium (137 - 145 mmol/L) 138 Potassium (3.5 - 5.1 mmol/L) 4.8 Chloride (98 - 107 mmol/L) 104 Carbon Dioxide (22 - 30 mmol/L) 22 Anion Gap (5 - 16) 11 BUN (9 - 20 mg/dL) 29 H Creatinine (0.7 - 1.2 mg/dL) 1.1 Estimated GFR (>60 ml/min) > 60 Glucose (65 - 99 mg/dL) 214 H Lactic Acid (0.7 - 2.1 mmol/L) 2.8 H 3.1 H Calcium (8.4 - 10.2 mg/dL) 7.5 L Phosphorus (2.5 - 4.5 mg/dL) 3.2 Magnesium (1.6 - 2.3 mg/dL) 2.2 Total Bilirubin (0.2 - 1.3 mg/dL) 1.4 H AST (17 - 59 U/L) 22 ALT (21 - 72 U/L) 24 Albumin (3.5 - 5.0 g/dL) 2.4 L Hematology CBC w Diff MAN DIFF ORDERED WBC (4.8 - 10.8 /CUMM) 12.7 H RBC (4.70 - 6.10 /CUMM) 5.12 Hgb (14.0 - 18.0 G/DL) 14.4 Hct (42 - 52 %) 43.0 MCV (80.0 - 94.0 FL) 84.1 MCH (27.0 - 31.0 PG) 28.1 RDW (11.5 - 14.5 %) 14.5 Plt Count (130 - 400 /CUMM) 175 MPV (7.4 - 10.4 FL) 9.8 Gran % (42.2 - 75.2 %) 91.6 H Lymphocytes % (20.5 - 51.1 %) 5.6 L Monocytes % (1.7 - 9.3 %) 2.8 Eosinophils % (0 - 5 %) 0 Basophils % (0.0 - 2.0 %) 0 L Absolute Granulocytes (1.4 - 6.5 /CUMM) 11.7 H Segmented Neutrophils (42.2 - 75.2 %) 28 L Band Neutrophils (0.0 - 5.0 %) 41 H Absolute Lymphocytes (1.2 - 3.4 /CUMM) 0.7 L Lymphocytes (20.5 - 51.1 %) 21 Monocytes (1.7 - 9.3 %) 8 Absolute Monocytes (0.10 - 0.60 /CUMM) 0.4 Absolute Eosinophils (0.0 - 0.7 /CUMM) 0 Absolute Basophils (0.0 - 0.2 /CUMM) 0 Metamyelocytes (0.0 - 1.0 %) 2 H Platelet Estimate (ADEQUATE) ADEQUATE Normocytic RBCs VERIFIED Normochromic RBCs VERIFIED PUBS MCHC (33.0 - 37.0 G/DL) 33.4 Miscellaneous Phlebotomy Draw Site A LINE 12/03 12/03 12/03 12/03 1400 0930 0504 0598 Blood Gas pH (7.35 - 7.45 PH) 7.34 L pCO2 (35 - 45 TORR) 33 L pO2 (80 - 100 TORR) 74 L HCO3 (21 - 28 MEQ/L) 17 L ABG O2 Sat (Measured) (>96.0 %) 94.0 L P-50 (Temp Corrected) Y Carboxyhemoglobin (1.5 - 5.0 %) 0.7 L O2 Concentration % 40% Temperature (97.0 - 100.0 FARH) 98.5 Respiration Rate (BPM) 24 O2 Delivery Method ESPRIT Vent Mode AC Expiratory Pressure (CMH2O/P) 5 Tidal Volume (CC) 500 Chemistry Lactic Acid (0.7 - 2.1 mmol/L) 3.0 H 3.4 H 3.8 H Miscellaneous Phlebotomy Draw Site MARK Assessment/Plan Assessment/Plan A: 89 year old male POD #3 s/p exploratory laparotomy, Henny's procedure for a perforated viscus/fecal peritonitis thought to be due to an obstructing left inguinal hernia. Febrile to 102.9F while on Zosyn. IVF remain at 100ml/hr ( D5NS) Plan: Would give NS bolus 500ml over 1 hour. Attempts at weaning ventilator per critical care team. F/U am labwork. Await increase in bowel function. Continue Zosyn. F/U ID recommendations regarding antibiotic coverage. Daily dressing changes to midline incision; packing to be inched out daily. Core Measures/Miscellaneous Edward Catheter Date In: 12/02/16 Venous Thromboembolism VTE Risk Factors: Acute medical illness, Age > 40, Surgery VTE Contraindications: No Contraindications VTE Prophylaxis Ordered Inpt Mech & Pharm VTE Diagnosis: No Beta Abelardo Is Beta Abelardo a Home Med? No Antibiotics Is Patient on Antibiotics? Yes If Yes: infection
[2016-12-05 06:08] LABS: ABSOLUTE BASOPHIL COUNT 0 /CUMM (0.0-0.2); ABSOLUTE EOSINOPHIL COUNT 0 /CUMM (0.0-0.7); ABSOLUTE GRANULOCYTE CT 7.9 /CUMM (1.4-6.5); ABSOLUTE LYMPH COUNT 0.8 /CUMM (1.2-3.4); ABSOLUTE MONOCYTE COUNT 0.2 /CUMM (0.10-0.60); BASOPHIL % 0.1 % (0.0-2.0); EOSINOPHIL % 0 % (0-5); GRANULOCYTE % 89.4 % (42.2-75.2); HEMATOCRIT 42.2 % (42-52); MEAN CORPUSCULAR HGB 28.3 PG (27.0-31.0); MEAN CORPUSCULAR HGB CONC 33.6 G/DL (33.0-37.0); MEAN CORPUSCULAR VOLUME 84.3 FL (80.0-94.0); MEAN PLATELET VOLUME 9.9 FL (7.4-10.4); PLATELET COUNT 188 /CUMM (130-400); RBC DISTRIBUTION WIDTH 15.5 % (11.5-14.5); WHITE BLOOD CELL COUNT 8.9 /CUMM (4.8-10.8)
--- NOTE | 2016-12-05 07:38 | NUR ---
FOR 11-7 SHIFT, PT TEMP DID NOT RESPOND TO IV TYLENOL AND ICE PACKS, TMAX RECTAL TEMP 102.9, BP BEGAN TO DROP INTO TO 80'S, HR REMAINED TACHYCARDIC 120'S. DR. EM AWARE OF ABOVE. PT PLACED ON COOLING BLANKET, NS BOLUS TOTAL OF 1L GIVEN WITH GOOD EFFECT, SBP BACK IN 100'S. FAMILY AT BEDSIDE AND UPDATED.
[2016-12-05 08:00] VITALS: BP 96/68
--- NOTE | 2016-12-05 08:03 | RADIOLOGY REPORT ---
EXAMINATION: XR PORTABLE CHEST CLINICAL INFORMATION: Intubated. COMPARISON: Portable chest 12/04/2016, 12/03/2016 TECHNIQUE: Portable AP chest is performed at 0620 hours. FINDINGS: Endotracheal tube tip is approximately 3.5 cm above fernando. Right internal jugular central line tip is at right atrium and distal end is imperceptible given the background film density. Nasogastric tube is seen to mid mediastinum and then imperceptible against background film density. Cardiomegaly and hilar and mediastinal contours are stable. Coarsening bronchovascular markings stable. Airspace opacity right base decreased. Left base stable. No overt vascular congestion. IMPRESSION: 1. Endotracheal tube 3.5 cm above fernando. 2. Right IJ and nasogastric tube distal ends obscured by background film density. 3. Airspace opacity/atelectasis right base decreased. Left base opacity stable.
--- NOTE | 2016-12-05 08:55 | PN- Infect Dx ---
Subjective Subjective: MAXIMUM TEMPERATURE 103.5. Blood pressure dropped below 100 overnight, but did increase with 1 L of saline. Objective Last 24 Hrs of Vital Signs/I&O Vital Signs Date Time Temp Pulse Resp B/P Pulse O2 O2 Flow FiO2 Ox Delivery Rate 12/05 0840 101.9 12/05 0830 40 12/05 0632 40 12/05 0409 102.9 12/05 0400 95 Ventilator 40% 12/05 0400 102.9 120 25 102/64 94 Ventilator 40% 12/05 0338 40 12/05 0218 102.5 12/05 0101 40 12/05 0000 95 Ventilator 40% 12/05 0000 102.2 123 24 108/70 95 Ventilator 40% 12/04 2229 40 12/04 2100 102.9 12/04 2000 96 Ventilator 40% 12/04 2000 101.0 114 22 104/56 96 Ventilator 40% 12/04 1944 40 12/04 1934 101.0 12/04 1659 40 12/04 1600 94 Ventilator 40% 12/04 1600 100.6 116 22 114/68 94 Ventilator 40% 12/04 1338 40 12/04 1200 96 Ventilator 40% 12/04 1200 99.2 124 24 160/80 96 Ventilator 40% 12/04 1047 40 Intake & Output 12/05 1600 12/05 0800 12/05 0000 Intake Total 1414 1511.2 Output Total 325 875 Balance 1089 636.2 Intake, IV 1414 1511.2 Intake, Oral 0 0 Output, 125 25 Gastric Drainage Output, Stool 0 0 Output, Urine 200 850 Physical Exam Other Physical Findings: He is arousable and responsive to voice and pain Neck right IJ triple lumen catheter with no inflammation at the site Lungs bilateral rhonchi Heart regular rhythm with no murmur Abdomen is distended, tender to palpation, with a small amount of serous brown liquid in colostomy; incision is clean, with no erythema or drainage Extremities no cyanosis, clubbing or edema Edward catheter remains in place Results Last 24 Hours of Lab Results: Laboratory Tests 12/05 12/05 12/05 0535 0410 0410 Blood Gas pH (7.35 - 7.45 PH) 7.34 L pCO2 (35 - 45 TORR) 30 L pO2 (80 - 100 TORR) 95 HCO3 (21 - 28 MEQ/L) 16 L ABG O2 Sat (Measured) (>96.0 %) 96.0 P-50 (Temp Corrected) Y Carboxyhemoglobin (1.5 - 5.0 %) 0.4 L O2 Concentration % 40% Temperature (97.0 - 100.0 FARH) 102.9 H Respiration Rate (BPM) 20 O2 Delivery Method ESPRIT Vent Mode AC Expiratory Pressure (CMH2O/P) 5 Tidal Volume (CC) 500 Chemistry Sodium (137 - 145 mmol/L) 142 Potassium (3.5 - 5.1 mmol/L) 4.2 Chloride (98 - 107 mmol/L) 108 H Carbon Dioxide (22 - 30 mmol/L) 20 L Anion Gap (5 - 16) 13 BUN (9 - 20 mg/dL) 36 H Creatinine (0.7 - 1.2 mg/dL) 1.5 H Estimated GFR (>60 ml/min) 44 L Glucose (65 - 99 mg/dL) 133 H Hemoglobin A1c Pending Calcium (8.4 - 10.2 mg/dL) 7.2 L Phosphorus (2.5 - 4.5 mg/dL) 3.0 Magnesium (1.6 - 2.3 mg/dL) 2.1 Total Bilirubin (0.2 - 1.3 mg/dL) 1.5 H AST (17 - 59 U/L) 24 ALT (21 - 72 U/L) 36 Albumin (3.5 - 5.0 g/dL) 2.2 L Cortisol AM Sample (4.46 - 22.7 ug/dL) 35.1 H Hematology CBC w Diff MAN DIFF ORDERED WBC (4.8 - 10.8 /CUMM) 8.9 RBC (4.70 - 6.10 /CUMM) 5.00 Hgb (14.0 - 18.0 G/DL) 14.1 Hct (42 - 52 %) 42.2 MCV (80.0 - 94.0 FL) 84.3 MCH (27.0 - 31.0 PG) 28.3 RDW (11.5 - 14.5 %) 15.5 H Plt Count (130 - 400 /CUMM) 188 MPV (7.4 - 10.4 FL) 9.9 Gran % (42.2 - 75.2 %) 89.4 H Lymphocytes % (20.5 - 51.1 %) 8.8 L Monocytes % (1.7 - 9.3 %) 1.7 Eosinophils % (0 - 5 %) 0 Basophils % (0.0 - 2.0 %) 0.1 Absolute Granulocytes (1.4 - 6.5 /CUMM) 7.9 H Segmented Neutrophils (42.2 - 75.2 %) 73 Band Neutrophils (0.0 - 5.0 %) 16 H Absolute Lymphocytes (1.2 - 3.4 /CUMM) 0.8 L Lymphocytes (20.5 - 51.1 %) 10 L Monocytes (1.7 - 9.3 %) 1 L Absolute Monocytes (0.10 - 0.60 /CUMM) 0.2 Absolute Eosinophils (0.0 - 0.7 /CUMM) 0 Absolute Basophils (0.0 - 0.2 /CUMM) 0 Platelet Estimate (ADEQUATE) ADEQUATE Normochromic RBCs VERIFIED Poikilocytosis 1+ Anisocytosis 1+ PUBS MCHC (33.0 - 37.0 G/DL) 33.6 Miscellaneous Phlebotomy Draw Site [place] 12/04 12/04 12/04 1708 1410 1408 Blood Gas pH (7.35 - 7.45 PH) 7.40 pCO2 (35 - 45 TORR) 15 L pO2 (80 - 100 TORR) 102 H HCO3 (21 - 28 MEQ/L) 9 L ABG O2 Sat (Measured) (>96.0 %) 97.0 P-50 (Temp Corrected) N Carboxyhemoglobin (1.5 - 5.0 %) 0.3 L O2 Concentration % 40% Respiration Rate (BPM) 20 O2 Delivery Method VENT Vent Mode AC Expiratory Pressure (CMH2O/P) 5 Tidal Volume (CC) 500 Pressure Support (CMH2O/P) 0 Chemistry Sodium (137 - 145 mmol/L) 140 Potassium (3.5 - 5.1 mmol/L) 4.5 Chloride (98 - 107 mmol/L) 106 Carbon Dioxide (22 - 30 mmol/L) 21 L Anion Gap (5 - 16) 12 BUN (9 - 20 mg/dL) 33 H Creatinine (0.7 - 1.2 mg/dL) 1.3 H Estimated GFR (>60 ml/min) 52 L BUN/Creatinine Ratio (7 - 25 %) 25.4 H Lactic Acid (0.7 - 2.1 mmol/L) 1.9 2.3 H Troponin I (<0.11 ng/ml) < 0.01 Miscellaneous Phlebotomy Draw Site RIGHT A-LINE Last 24 Hours of [place] Results: Blood cultures December 02 negative Blood cultures December 04 negative Urine culture December 02 negative Urine culture December 05 pending Sputum culture December 02 mixed sloan with scant growth of yeast Recent Imaging Studies: Chest x-ray December 05 bibasilar densities without change Assessment/Plan Impression: Increasing fevers, though white blood cell count has decreased, with decreased bands, with transient hypotension overnight despite empiric treatment with Zosyn now Day 3 of treatment for peritonitis secondary to a perforated viscus status post Kirkland's procedure 3 days ago. He is at risk for healthcare associated infections, with a right IJ triple-lumen catheter, Edward catheter and ventilator , but am most concerned about a persistent infection within the abdomen related to his recent perforation/surgery. Of note his creatinine is increasing, possibly secondary to ATN from sepsis or the recent IV contrast versus prerenal. Suggestion: 1. Would repeat CT of the abdomen and pelvis (without IV contrast) 2. Would remove right IJ and replace with PICC when feasible 3. Follow creatinine closely/ Renal evaluation if worsens 4. Follow-up recent cultures 5. Continue Zosyn pending above
--- NOTE | 2016-12-05 09:19 | NUR ---
PT'S HEART RATE IN THE 120'S, WITH PAC'S AND PVC'S. EKG DONE TO R/O CHANGE INTO AFIB, MANUAL B/P'S 90'S/60'S. 1L NS BOLUS RUNNING AT THIS TIME, COOLING BLANKET REMAINS IN PLACE, RECTAL PROBE TEMP REAING 101.4, IV TYLENOL GIVEN. PT TO GO FOR STAT ABDOMINAL CT. WILL TRAVEL ONCE B/P STABLE. AUTO CUFF READING 70'S/40'S.
--- NOTE | 2016-12-05 09:21 | PN- CRCU ---
See Addendum Subjective HPI/Critical Care Issues: Patient seen and examined this morning. His MAXIMUM TEMPERATURE was 103.5 and he was hypotensive as well. Improved with normal saline. Remains on mechanical ventilation review of systems is limited. Required extra sedation with fentanyl and Ativan overnight. Objective Current Medications: Current Medications Sig/Ar Start time Last Medication Dose Route Stop Time Status Admin Acetaminophen 1,000 MG Q6P PRN 12/04 1945 12/05 N/A 1 UNIT IV 0840 Albuterol Sulfate 3 ML Q4 12/02 2200 AC 12/05 INH 0857 Chlorpromazine 25 MG ONCE ONE 12/05 0230 CAN IV 12/05 0231 Dextrose/Sodium 1,000 ML Q10H 12/04 1845 AC 12/05 Chloride IV 0250 Dextrose/Sodium 1,000 ML Q13H 12/04 1445 DC 12/04 Chloride IV 1451 Dextrose/Sodium 1,000 ML Q13H 12/03 2000 DC 12/04 Chloride IV 0859 Fentanyl Citrate 1,000 MCG Q8H 12/04 1315 CAN Sodium Chloride 250 ML IV Fentanyl Citrate 1,000 MCG Q10H 12/04 1300 AC 12/05 Sodium Chloride 250 ML IV 0649 Fentanyl Citrate 1,000 MCG Q10H 12/03 1200 DC 12/04 Sodium Chloride 250 ML IV 0658 Furosemide 40 MG ONCE ONE 12/04 1045 DC 12/04 IV 12/04 1046 1105 Heparin Sodium 5,000 UNIT Q8 12/02 2200 AC 12/05 (Porcine) SC 0637 Ipratropium [place] 2.5 ML Q4 12/02 2200 12/05 INH 0857 Lorazepam 1 MG Q2P PRN 12/03 1330 AC 12/04 IV 2126 Morphine Sulfate 2 MG Q3P PRN 12/04 1300 AC IV Morphine Sulfate 2 MG Q3P PRN 12/02 1800 DC 12/02 IV 1932 Morphine Sulfate 4 MG Q3P PRN 12/02 1800 AC 12/04 IV 1259 Ondansetron HCl 4 MG Q6P PRN 12/02 1800 AC IV Pantoprazole Sodium 40 MG DAILY 12/02 2200 AC 12/05 IV 0840 Piperacillin Sod/ 4.5 GM Q8H 12/03 1400 AC 12/05 Tazobactam Sod IV 0637 Sodium Chloride 100 ML Potassium Phosphate 15 mMol ONE ONE 12/04 0930 DC 12/04 Dextrose/Water 250 ML IV 12/04 1333 1059 Sodium Chloride 1,000 ML BOLUS ONE 12/05 0815 UNVr 12/05 IV 12/05 1014 0915 Sodium Chloride 250 ML BOLUS ONE 12/05 644 DC 12/05 IV 12/05 0744 0637 Sodium Chloride 500 ML BOLUS ONE 12/05 0545 DC 12/05 IV 12/05 0744 0638 Sodium Chloride 250 ML BOLUS ONE 12/05 529 DC 12/05 IV 12/05 0629 0525 Vital Signs & I&O Last 24 Hrs of Vitals and I&O: Vital Signs Date Time Temp Pulse Resp B/P Pulse O2 O2 Flow FiO2 Ox Delivery Rate 12/05 914 101.5 12/05 0840 101.9 12/05 0830 40 12/05 0632 40 12/05 0409 102.9 12/05 0400 95 Ventilator 40% 12/05 0400 102.9 120 25 102/64 94 Ventilator 40% 12/05 0338 40 12/05 0218 102.5 12/05 0101 40 12/05 0000 95 Ventilator 40% 12/05 0000 102.2 123 24 108/70 95 Ventilator 40% 12/04 2229 40 12/04 2100 102.9 12/04 2000 96 Ventilator 40% 12/04 2000 101.0 114 22 104/56 96 Ventilator 40% 12/04 1944 40 12/04 1934 101.0 12/04 1659 40 12/04 1600 94 Ventilator 40% 12/04 1600 100.6 116 22 114/68 94 Ventilator 40% 12/04 1338 40 12/04 1200 96 Ventilator 40% 12/04 1200 99.2 124 24 160/80 96 Ventilator 40% 12/04 1047 40 Intake & Output 12/05 1600 08 0800 12/05 0000 Intake Total 1414 1511.2 Output Total 325 875 Balance 1089 636.2 Intake, IV 1414 1511.2 Intake, Oral 0 0 Output, 125 25 Gastric Drainage Output, Stool 0 0 Output, Urine 200 850 Exam Other Physical Findings: gen intubated heent ett cvs s1, s2 lungs transmitted abd diminished bs+ ext no edema Results Last 24 Hrs of Lab Results: Laboratory Tests 12/05/16 0535: pH 7.34 L, pCO2 30 L, pO2 95, HCO3 16 L, ABG O2 Sat (Measured) 96.0, P-50 ( Temp Corrected) Y, Carboxyhemoglobin 0.4 L, O2 Concentration % 40%, Temperature 102.9 H, Respiration Rate 20, O2 Delivery Method ESPRIT, Vent Mode AC, Expiratory Pressure 5, Tidal Volume 500, Phlebotomy Draw Site MARK 12/05/16 0410: Hemoglobin A1c Pending 12/05/16 0410: Anion Gap 13, Estimated GFR 44 L, Glucose 133 H, Calcium 7.2 L, Phosphorus 3.0, Magnesium 2.1, Total Bilirubin 1.5 H, AST 24, ALT 36, Albumin 2.2 L, Cortisol AM Sample 35.1 H, CBC w Diff MAN DIFF ORDERED, RBC 5.00, MCV 84.3, MCH 28.3, RDW 15.5 H, MPV 9.9, Gran % 89.4 H, Lymphocytes % 8.8 L, Monocytes % 1.7, Eosinophils % 0, Basophils % 0.1, Absolute Granulocytes 7.9 H, Segmented Neutrophils 73, Band Neutrophils 16 H, Absolute Lymphocytes 0.8 L, Lymphocytes 10 L, Monocytes 1 L, Absolute Monocytes 0.2, Absolute Eosinophils 0, Absolute Basophils 0, Platelet Estimate ADEQUATE, Normochromic RBCs VERIFIED, Poikilocytosis 1+, Anisocytosis 1+, PUBS MCHC 33.6 12/04/16 1708: Lactic Acid 1.9 12/04/16 1410: pH 7.40, pCO2 15 L, pO2 102 H, HCO3 9 L, ABG O2 Sat (Measured) 97.0, P-50 ( Temp Corrected) N, Carboxyhemoglobin 0.3 L, O2 Concentration % 40%, Respiration Rate 20, O2 Delivery Method VENT, Vent Mode AC, Expiratory Pressure 5, Tidal Volume 500, Pressure Support 0, Phlebotomy Draw Site RIGHT A-LINE 12/04/16 1408: Anion Gap 12, Estimated GFR 52 L, BUN/Creatinine Ratio 25.4 H, Lactic Acid 2.3 H, Troponin I < 0.01 Impression/Plan Impression/Plan Impression/Plan: Impression 89 year old man * 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 for acute abdominal perforation * Respiratory failure with increased bibasilar opacitie, maybe fluid overload * 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 * lactic acidosis Plan Respiratory - Monitor chest x-rays and ABGs - TRC/Nebs ID - Zosyn, ID f/u, cx monitoring, fever/wbc monitoring - likely GI source, agree with CAT scan abdomen and pelvis without contrast, would add CT chest as well CVS - monitor hemodynamics - monitor CVP - doubt PE, however, will check LE dopplers, ECHO and given spo2 stability if that's negative, likely source for tachyardia/hypotension is sepsis, monitor lactate Heme - monitor cbc, coags Metabolic - ins/outs, sis, nephrology input early on Alimentary - NPO, per surgery - D5 1/2 NS Neuro - sedation as necessary for comfort DVT prophylaxis at all times TTS 40 min Code Status: Full Code
--- NOTE | 2016-12-05 09:36 | NUR ---
PT'S HEART RATE READING 180'S. AUTO CUFF AND A LINE READING A B/P OF 70'S. 1L NS BOLUS STILL RUNNING, EKG BEING DONE, MANUAL B/P 88/0 DOPPLER. SECOND EKG BEING DONE AT THIS TIME.
--- NOTE | 2016-12-05 09:38 | NUR ---
FENTANYL TURNED DOWN TO 100MCG PER MD EM AT THIS TIME
--- NOTE | 2016-12-05 09:50 | NUR ---
TROPONIN AND LACTIC DRAWN AT THIS TIME VIA RIJ TLC
--- NOTE | 2016-12-05 10:03 | NUR ---
AMIODARONE BOLUS INFUSING AT THIS TIME
--- NOTE | 2016-12-05 10:18 | NUR ---
AMIO GTT STARTED AT 1MG/MIN OR 33.3 ML/HR FOR 6 HOURS.
--- NOTE | 2016-12-05 11:04 | NUR ---
1045 LEVO GTT STARTED AT 5MCG/MIN OR 18.8 ML/HR. MANUAL B/P 80/DOPPLER. RUNNING VIA RIJ TLC BLUE PORT. WILL MONITOR
--- NOTE | 2016-12-05 11:05 | NUR ---
ECHO BEING DONE AT THIS TIME.
--- NOTE | 2016-12-05 11:37 | NUR ---
BLE US BEING DONE AT THIS TIME
--- NOTE | 2016-12-05 11:50 | NUR ---
PT'S HEART RATE REMAINS ELEVATED AT 140-150'S. ANOTHER 1L NS BOLUS STARTED AT THIS TIME PER MD HUGHES.
--- NOTE | 2016-12-05 11:54 | PN- General Surgery ---
Surgical Brief Attending Note Brief Attending Note: Overnight patient developed persistent fevers and this morning when into atrial fibrillation with rapid ventricular response. Amiodarone was initiated and patient placed on Levothroid for hypotension. His leukocytosis is resolving as is his bandemia. Remains with respiratory failure on mechanical ventilation. There has been no change to his oxygenation. His abdomen remains distended and tympanitic. Stoma is pink and viable. He has a known left inguinal hernia and examination does not reveal incarcerated bowel. My impression is the patient has systemic inflammatory response syndrome related to his fecal peritonitis. He is 3 days postop and the likelihood of finding an intra-abdominal abscess as to the etiology of his fevers is exceedingly low. Defer imaging to ICU team. Continue physiologic support and IV antibiotics, broad-spectrum. In retrospect, he is likely in need of continued volume resuscitation rather than diuresis.
[2016-12-05 12:00] VITALS: BP 100/71
--- NOTE | 2016-12-05 12:16 | NUR ---
PT TO CT SCAN AT THIS TIME WITH THIS RN AND RN TRAE, RT [employer]
--- NOTE | 2016-12-05 12:54 | ULTRASOUND REPORT ---
EXAMINATION: BILATERAL TRIPLEX SCANNING OF THE LOWER EXTREMITIES CLINICAL INFORMATION: Lower extremity swelling. COMPARISON: None. TECHNIQUE: Color-flow triplex imaging with spectral analysis and compression Doppler were performed on the lower extremities. FINDINGS: Respiratory variation, normal compression and augmented flow are noted throughout the lower extremities. The visualized common femoral vein, superficial femoral vein, profunda femoral vein, popliteal vein and mid calf peroneal and posterior tibial venous segments show no evidence of deep venous thrombosis. There is no Abbott's cyst. IMPRESSION: Normal triplex scan without evidence of deep venous thrombosis involving the lower extremities.
--- NOTE | 2016-12-05 13:32 | ECHOCARDIOGRAM REPORT ---
ROD ALFORD Age: 89 : 1925 Gender: M Exam Date: 12/05/2016 10:59 Exam Location: [facility] Ht (in): 66 Wt (lb): 190 BSA: 2.03 BP: 80 / 0 Ordering Physician: CASIE WHITMAN MD Referring Physician: Andrews Hilton MD Chief, SoC Technologist: Jenni Browning [facility] Room Number: 107 Indications: ARRHYTHMIAS Rhythm: Atrial fibrillation Technical Quality: Technically difficult study FINDINGS Left Ventricle Left ventricular cavity size at the upper limits of normal. Left ventricular wall thickness at upper limits of normal. Normal left ventricular ejection fraction visually estimated at >65 %. Right Ventricle Right ventricle not well visualized, grossly normal. Right Atrium Right atrium not well visualized, grossly normal. Left Atrium Normal left atrial size. Mitral Valve Mild thickening/calcification of the mitral valve leaflets. Mild mitral annular calcification. No mitral regurgitation. Aortic Valve Diffuse thickening of the aortic valve cusps with minimally reduced excursion. . No aortic stenosis. No aortic regurgitation. Tricuspid Valve Structurally normal tricuspid valve. Trace tricuspid regurgitation. Right ventricular systolic pressure estimated to be within the normal range at 29 mmHg. Pulmonic Valve Pulmonic valve not well visualized. No pulmonic regurgitation. Pericardium No pericardial or pleural effusion. Great Vessels The aortic root is upper limits of normal in size. The ascending aorta is mildly dilated at 3.9 cm diameter. CONCLUSIONS Left ventricular wall thickness at upper limits of normal. Normal left ventricular ejection fraction visually estimated at >65 Normal left atrial size. Mild thickening/calcification of the mitral valve leaflets. Mild mitral annular calcification. Diffuse thickening of the aortic valve cusps with minimally reduced excursion. No aortic stenosis. Right ventricular systolic pressure estimated to be within the normal range at 29 mmHg. The aortic root is upper limits of normal in size. The ascending aorta is mildly dilated at 3.9 cm diameter. Andrews Hilton M.D. (Electronically Signed) Final Date: 05 December 2016 13:31 MEASUREMENTS (Male / Female) Normal Values 2D ECHO LV Diastolic Diameter PLAX 5.5 cm 4.2 - 5.9 / 3.9 - 5.3 cm LV Systolic Diameter PLAX 3.3 cm 2.1 - 4.0 cm LV Fractional Shortening PLAX 40.0 % 25 - 46 % LV Ejection Fraction 2D Teich 70.1 % IVS Diastolic Thickness 1.1 cm LVPW Diastolic Thickness 1.1 cm LV Relative Wall Thickness 0.4 RV Internal Dim ED PLAX 3.0 cm 1.9 - 3.8 cm LVOT Diameter 2.1 cm Aortic Root Diameter 3.6 cm LA Systolic Diameter LX 3.3 cm 3.0 - 4.0 / 2.7 - 3.8 cm LA Volume 32.0 cm 18 - 58 / 22 - 52 cm Ascending Aorta Diameter 3.9 cm DOPPLER AV Peak Velocity 188.0 cm/s AV Peak Gradient 14.1 mmHg AV Mean Velocity 133.0 cm/s AV Mean Gradient 8.0 mmHg AV Velocity Time Integral 25.3 cm LVOT Peak Velocity 114.0 cm/s LVOT Peak Gradient 5.2 mmHg LVOT Mean Velocity 81.0 cm/s LVOT Mean Gradient 3.0 mmHg LVOT Velocity Time Integral 17.6 cm LVOT Stroke Volume 61.0 cm AV Area Cont Eq vti 2.4 cm AV Area Cont Eq pk 2.1 cm MV Peak Velocity 123.0 cm/s MV Peak Gradient 6.1 mmHg MV Mean Velocity 82.7 cm/s MV Mean Gradient 3.0 mmHg Mitral A Point Velocity 94.8 cm/s MV PHT Velocity 128.0 cm/s MV Deceleration Converse 741.0 cm/s MV Pressure Half Time 51.8 ms MV Area PHT 4.2 cm MV Deceleration Time 214.0 ms TR Peak Velocity 246.0 cm/s TR Peak Gradient 24.2 mmHg Right Atrial Pressure 5.0 mmHg Pulmonary Artery Systolic Pressu 29.2 mmHg Right Ventricular Systolic Press 29.2 mmHg PV Peak Velocity 139.0 cm/s PV Peak Gradient 7.7 mmHg PV Mean Velocity 90.8 cm/s PV Mean Gradient 4.0 mmHg PV Velocity Time Integral 17.8 cm LV E' Lateral Velocity 12.0 cm/s LV E' Septal Velocity 11.5 cm/s
--- NOTE | 2016-12-05 14:05 | CT SCAN REPORT ---
EXAMINATION: CT CHEST, ABDOMEN AND PELVIS. CLINICAL INFORMATION: Fever. Tachycardia. Hypotension. Clinical concern for pulmonary embolism and deep venous thrombosis. COMPARISON: Abdominal pelvic CT 12/02/2016. Chest CT 08/08/2009. TECHNIQUE: This is a noncontrast CT scan of the chest, abdomen and pelvis. Coronal and sagittal reformats provided. Axial MIP volume renderings of the lungs. Beam hardening artifact from the patient's arms at sides. DLP: 1384.34 mGy-cm. FINDINGS: ELECTRODYNAMICIST: Endotracheal tube tip projects 6 cm above fernando. Enteric tube enters the stomach. Left lower quadrant ostomy. A few mildly dilated bowel loops. Midline laparotomy singh. Right IJ central venous catheter tip at cavoatrial junction. CHEST: Images degraded by respiratory motion artifact. No endobronchial lesions seen. Mild emphysema. Dependent consolidation bilaterally most likely compressive atelectasis. Cannot exclude focal lesions within areas of consolidated lung. In the setting of fever, pneumonia must be considered and follow-up is advised. There is a coarse calcification in the left lower lobe measuring approximately 1 cm most likely an hamartoma or granuloma. The unenhanced pulmonary arteries are grossly normal. Pulmonary emboli cannot be excluded on a noncontrast examination. Calcified mediastinal and left hilar nodes are present confirming a granulomatous disease. Leading considerations include tuberculosis or histoplasmosis. A borderline enlarged 9 mm aortopulmonary window node is noted (series 2 image [id number]). Moderate atherosclerotic peripheral vascular disease. 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 Aortic valvular calcification are present. This increases the likelihood of a stenotic/regurgitant aortic valve: Echocardiography may be helpful. Moderate coronary disease. There are small bilateral pleural effusions without obvious loculation. No thyroid lesion. NG tube in the esophagus. No chest wall mass. No axillary adenopathy. ABDOMEN: Scattered punctate calcifications are noted throughout the liver likely granulomata. There is a small volume of ascites. There is extensive mesenteric and omental fat stranding. Scattered foci of free air are seen. The patient is status post recent laparotomy and there is some minor degree of free air and is within normal limits in the perioperative setting. Small quantities of air are still noted beneath the anterior abdominal wall staple line in the subcutaneous tissues. GALLBLADDER: The gallbladder is distended approaching 12 cm in sagittal dimension. Minimal wall thickening is nonspecific in the setting of ascites. No definite stones. The bile ducts are not grossly dilated. SPLEEN: The spleen is normal in size and homogeneous in density. PANCREAS: The pancreas shows some fatty replacement without focal lesion or ductal dilation on noncontrast scan. No adrenal mass. The unenhanced kidneys are grossly normal without hydronephrosis or calculi. Bilateral perinephric fat stranding is noted, however rich peritoneal fat stranding is on prior with extensive mesenteric and subcutaneous fat stranding and nonspecific. The ureters are nondilated. Abdominal aorta is normal in caliber with moderate atherosclerotic peripheral vascular disease. No retroperitoneal collection or adenopathy. I cannot evaluate for deep venous thrombosis on unenhanced scan. The visualized femoral and iliac vessels are symmetric in density and caliber. GASTRIC INTESTINAL TRACT: A nasogastric tube passes through the normal appearing esophagus and terminates in the body of the stomach. The stomach is decompressed. The proximal jejunum is mildly dilated with air-fluid levels. Subtle tethering of bowel loops is seen in the left lower quadrant at the level of a diverting colostomy. Early small bowel obstruction is a consideration and close follow-up is recommended. Additionally, jejunal bowel loops approach a large left inguinal hernia (series 2 image [id number]) and no definite entrapment is seen. Ascites and free air are also noted within this hernia extending into the left hemiscrotum. The distal jejunum and ileum are decompressed. Terminal ileum is normal in appearance. Punctate echogenic focus within an otherwise normal-appearing appendix in the right lower quadrant appendicolith versus ingested material. No convincing evidence for appendicitis. There is marked thickening of the cecum, ascending colon and transverse colonic wall. Bowel wall thickening is less evident in the descending colon as it exits via a diverting left lower quadrant colostomy. Colitis is a consideration. An anastomotic staple line in the midline of the pelvis denotes the end of a Kirkland's pouch. Ascites appears uniformly distributed without loculation or obvious abscess. ABDOMINAL WALL: As noted above, left lower quadrant diverting colostomy without obstruction. Status post ventral laparotomy with postoperative changes in the midline. Moderate anasarca. PELVIS: The bladder is decompressed by balloontipped catheter. The prostate is within normal limits. Minor presacral fluid is within normal limits for the postoperative setting. A fat-containing right inguinal hernia is also present. OSSEOUS STRUCTURES: Age indeterminate compression deformity of L1. Sclerotic T11 compression fracture presumably chronic; however focally sclerotic vertebral bodies have differential including metastatic disease such as prostate cancer. This is considered less likely as an isolated finding. Degenerative spine disease. IMPRESSION: 1. There is a small to moderate volume of ascites. There is extensive mesenteric edema as well as small pleural effusions and anasarca. Appearance is nonspecific and may all be postoperative in etiology. 2. There is a subtle prominence of proximal small bowel loops. An early jejunal bowel obstruction should be considered and follow-up is advised. Potential etiologies include postsurgical changes in the left lower quadrant or a large left internal hernia. 3. Bowel wall thickening of the ascending and transverse colon consistent with colitis. Patent diverting descending colostomy. Intact appearance to Kirkland's pouch. 4. Left greater than right basilar consolidation is likely compressive atelectasis but pneumonia cannot be excluded in the setting of a postoperative fever. 5. Emphysema. 6. Evidence of prior granulomatous disease with calcified mediastinal and left hilar nodes, left lower lobe calcified nodule and hepatic calcifications. 7. A distended gallbladder with minimal nonspecific wall thickening in the setting of ascites. Cholecystitis is not suspected. 8. Partially collapsed, sclerotic T11 vertebral body of uncertain etiology. 9. 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 Aortic valvular calcifications. Echocardiography would be helpful in this regard.
--- NOTE | 2016-12-05 14:15 | Cons- Cardiology ---
General Information and HPI Consulting Request Date of Consult: 12/05/16 Requested By: ARISTIDES ALEJANDRO,DARWIN Nickerson Reason for Consult: "new onset" atrial fibrillation in a patient with previous emergency abdominal surgery due to perforated viscus and probable sepsis. Source of Information: old records Exam Limitations: unable to give history, clinical condition History of Present Illness: The patient is an 89-year-old man who presented 3 days ago with abdominal pain and was found to have perforated sigmoid colon. He underwent emergency [place]' s procedure. He Has remained intubated and on the respirator. Today he was noted to be febrile and tachycardic and on his second EKG this morning was clearly in atrial fibrillation with a moderate rate. At that point we started him on amiodarone. Early this afternoon he was noted to be in sinus rhythm on the monitor with PACs and PVCs. His blood pressure was low this morning and he was given IV fluids. He was started on pressors for blood pressure support. His lactic acid was elevated at 2.9. His echocardiogram showed good left ventricular systolic function and some calcification of his mitral and aortic valves but no significant valvular dysfunction. Allergies/Medications Allergies: Coded Allergies: NO KNOWN ALLERGIES (12/24/15) Home Med List: Albuterol Sulfate (Ventolin Hfa) 90 MCG HFA.AER.AD 2 PUF INH Q4-6 PRN PRN BREATHING PROBLEMS (Reported) Albuterol Sulfate/Ipratropiu (Duoneb) 3 MG/3 ML NEB 1 Vial INH/ELOY 4 TIMES/DAY PRN WHEEZING Atorvastatin Calcium 10 MG TABLET 1 TAB PO DAILY CHOLESTEROL (Reported) Furosemide (Lasix) 20 MG TABLET 1 TAB PO DAILY FLUID IN LUNGS Methylprednisolone. (Medrol) 4 MG TAB.DS.PK 1 DP PO AD BRONCHOSPASM 6 on day 1 then reduce by one tablet daily until gone Potassium Chloride 10 MEQ TAB.ER.PRT 1 TAB PO DAILY SUPPLEMENT Current Medications: Current Medications Sig/Ar Start time Last Medication Dose Route Stop Time Status Admin Acetaminophen 1,000 MG Q6P PRN 12/04 1945 AC 12/05 N/A 1 UNIT IV 2346 Albuterol Sulfate 3 ML Q4 12/02 2200 AC 12/06 INH 0821 Amiodarone HCl/ 150 MG ONCE ONE 12/05 1000 DC 12/05 Dextrose IV 12/05 1009 0954 N/A 1 UNIT Amiodarone HCl/ 360 MG Q12H 12/05 1000 AC 12/06 Dextrose IV 0612 N/A 1 UNIT Dextrose/Sodium 1,000 ML Q6H 12/05 1830 AC 12/06 Chloride IV 0530 Dextrose/Sodium 1,000 ML Q10H 12/04 1845 DC 12/05 Chloride IV 1401 Fentanyl Citrate 1,000 MCG Q10H 12/04 1300 AC 12/06 Sodium Chloride 250 ML IV 0328 Heparin Sodium 5,000 UNIT Q8 12/02 2200 AC 12/06 (Porcine) SC 0623 Ipratropium Roach 2.5 ML Q4 12/02 2200 AC 12/06 INH 0821 Lorazepam 1 MG Q2P PRN 12/03 1330 AC 12/06 IV 0847 Morphine Sulfate 2 MG Q3P PRN 12/04 1300 AC IV Morphine Sulfate 4 MG Q3P PRN 12/02 1800 AC 12/04 IV 1259 Norepinephrine 4 MG Q24H 12/05 1045 AC 12/06 Sodium Chloride 250 ML IV 0052 Norepinephrine 4 MG .STK-MED ONE 12/05 1032 DC IV 12/05 1033 Ondansetron HCl 4 MG Q6P PRN 12/02 1800 AC IV Pantoprazole Sodium 40 MG DAILY 12/02 2200 AC 12/06 IV 0847 Piperacillin Sod/ 4.5 GM Q8H 12/03 1400 AC 12/06 Tazobactam Sod IV 0624 Sodium Chloride 100 ML Potassium Phosphate 15 mMol ONE ONE 12/06 0815 AC Dextrose/Water 250 ML IV 12/06 1218 Sodium Chloride 1,000 ML BOLUS ONE 12/05 1200 DC 12/05 IV 12/05 1259 1153 Sodium Chloride 1,000 ML BOLUS ONE 12/05 0915 DC 12/05 IV 12/05 1014 0915 Review of Systems Review of Systems: Unable to be obtained due to patient's clinical status on respirator Past History Travel History Traveled to [place] past 21 day No Medical History Neurological: NONE EENT: NONE Cardiovascular: hypertension, hyperlipidemia Respiratory: asthma Gastrointestinal: HERNIA Hepatic: NONE Renal: NONE Musculoskeletal: NONE Psychiatric: NONE Endocrine: NONE Blood Disorders: NONE Cancer(s): NONE [place]/Reproductive: NONE Surgical History Surgical History: hernia repair-inguinal (bilateral with left recurrence), HERNIA REPAIR Psychosocial History Where Do You Live? Home Services at Home: None Smoking Status: Former Smoker Functional Ability ADLs Independent: dressing, eating, toileting, bathing. Ambulation: independent IADLs Independent: shopping, housework, finances, food prep, telephone, transportation , medication admin. Exam & Diagnostic Data Vital Signs and I&O Vital Signs Date Time Temp Pulse Resp B/P Pulse O2 O2 Flow FiO2 Ox Delivery Rate 12/05 1323 40 12/05 1041 125 80/0 12/05 1009 126 82/0 12/05 0954 179 82/0 12/05 0915 101.5 12/05 0840 101.9 12/05 0830 40 12/05 08 98 Ventilator 40% 12/05 08 102.0 128 27 96/68 98 Ventilator 40% 12/05 0632 40 12/05 0409 102.9 12/05 0400 95 Ventilator 40% 12/05 0400 102.9 120 25 102/64 94 Ventilator 40% 12/05 0338 40 12/05 0218 102.5 12/05 0101 40 12/05 0000 95 Ventilator 40% 12/05 0000 102.2 123 24 108/70 95 Ventilator 40% 12/04 2229 40 12/04 2100 102.9 12/04 2000 96 Ventilator 40% 12/04 2000 101.0 114 22 104/56 96 Ventilator 40% 12/04 1944 40 12/04 1934 101.0 12/04 1659 40 12/04 1600 94 Ventilator 40% 12/04 1600 100.6 116 22 114/68 94 Ventilator 40% Intake & Output 12/05 1600 12/05 0812/05 0000 12/04 1600 12/04 0812/04 0000 Intake Total 1414 1511.2 1578 1333.7 1115 Output Total 304 557 4385 425 200 Balance 1089 636.2 -522 908.7 915 Intake, IV 1414 1511.2 1578 1333.7 1115 Intake, Oral 0 0 0 0 0 Output, 125 25 100 150 75 Gastric Drainage Output, Stool 0 0 0 0 Output, Urine 097 952 0949 275 125 Physical Exam: He is intubated and sedated but is moving spontaneously HEENT exam is grossly normal His lungs reveal good air movement Heart reveals mild tachycardia with irregular rhythm and no murmurs Extremities reveal no edema Abdomen is postoperative Labs/Adrian Results: Laboratory Tests 12/05 12/05 12/05 12/05 1338 0949 0588 0410 Blood Gas pH (7.35 - 7.45 PH) 7.34 L pCO2 (35 - 45 TORR) 30 L pO2 (80 - 100 TORR) 95 HCO3 (21 - 28 MEQ/L) 16 L ABG O2 Sat (Measured) (>96.0 %) 96.0 P-50 (Temp Corrected) Y Carboxyhemoglobin (1.5 - 5.0 %) 0.4 L O2 Concentration % 40% Temperature (97.0 - 100.0 FARH) 102.9 H Respiration Rate (BPM) 20 O2 Delivery Method ESPRIT Vent Mode AC Expiratory Pressure (CMH2O/P) 5 Tidal Volume (CC) 500 Chemistry Hemoglobin A1c Pending Lactic Acid (0.7 - 2.1 mmol/L) Pending 2.9 H Troponin I (<0.11 ng/ml) 0.02 Miscellaneous Phlebotomy Draw Site [place] 12/05 12/04 12/04 0410 1708 1410 Blood Gas pH (7.35 - 7.45 PH) 7.40 pCO2 (35 - 45 TORR) 15 L pO2 (80 - 100 TORR) 102 H HCO3 (21 - 28 MEQ/L) 9 L ABG O2 Sat (Measured) (>96.0 %) 97.0 P-50 (Temp Corrected) N Carboxyhemoglobin (1.5 - 5.0 %) 0.3 L O2 Concentration % 40% Respiration Rate (BPM) 20 O2 Delivery Method VENT Vent Mode AC Expiratory Pressure (CMH2O/P) 5 Tidal Volume (CC) 500 Pressure Support (CMH2O/P) 0 Chemistry Sodium (137 - 145 mmol/L) 142 Potassium (3.5 - 5.1 mmol/L) 4.2 Chloride (98 - 107 mmol/L) 108 H Carbon Dioxide (22 - 30 mmol/L) 20 L Anion Gap (5 - 16) 13 BUN (9 - 20 mg/dL) 36 H Creatinine (0.7 - 1.2 mg/dL) 1.5 H Estimated GFR (>60 ml/min) 44 L Glucose (65 - 99 mg/dL) 133 H Lactic Acid (0.7 - 2.1 mmol/L) 1.9 Calcium (8.4 - 10.2 mg/dL) 7.2 L Phosphorus (2.5 - 4.5 mg/dL) 3.0 Magnesium (1.6 - 2.3 mg/dL) 2.1 Total Bilirubin (0.2 - 1.3 mg/dL) 1.5 H AST (17 - 59 U/L) 24 ALT (21 - 72 U/L) 36 Albumin (3.5 - 5.0 g/dL) 2.2 L Cortisol AM Sample (4.46 - 22.7 ug/dL) 35.1 H Hematology CBC w Diff MAN DIFF ORDERED WBC (4.8 - 10.8 /CUMM) 8.9 RBC (4.70 - 6.10 /CUMM) 5.00 Hgb (14.0 - 18.0 G/DL) 14.1 Hct (42 - 52 %) 42.2 MCV (80.0 - 94.0 FL) 84.3 MCH (27.0 - 31.0 PG) 28.3 RDW (11.5 - 14.5 %) 15.5 H Plt Count (130 - 400 /CUMM) 188 MPV (7.4 - 10.4 FL) 9.9 Gran % (42.2 - 75.2 %) 89.4 H Lymphocytes % (20.5 - 51.1 %) 8.8 L Monocytes % (1.7 - 9.3 %) 1.7 Eosinophils % (0 - 5 %) 0 Basophils % (0.0 - 2.0 %) 0.1 Absolute Granulocytes (1.4 - 6.5 /CUMM) 7.9 H Segmented Neutrophils (42.2 - 75.2 %) 73 Band Neutrophils (0.0 - 5.0 %) 16 H Absolute Lymphocytes (1.2 - 3.4 /CUMM) 0.8 L Lymphocytes (20.5 - 51.1 %) 10 L Monocytes (1.7 - 9.3 %) 1 L Absolute Monocytes (0.10 - 0.60 /CUMM) 0.2 Absolute Eosinophils (0.0 - 0.7 /CUMM) 0 Absolute Basophils (0.0 - 0.2 /CUMM) 0 Platelet Estimate (ADEQUATE) ADEQUATE Normochromic RBCs VERIFIED Poikilocytosis 1+ Anisocytosis 1+ PUBS MCHC (33.0 - 37.0 G/DL) 33.6 Miscellaneous Phlebotomy Draw Site RIGHT A-LINE 12/04 12/04 12/04 1408 0550 0501 Blood Gas pH (7.35 - 7.45 PH) 7.39 pCO2 (35 - 45 TORR) 32 L pO2 (80 - 100 TORR) 76 L HCO3 (21 - 28 MEQ/L) 19 L ABG O2 Sat (Measured) (>96.0 %) 96.0 P-50 (Temp Corrected) N Carboxyhemoglobin (1.5 - 5.0 %) 0.9 L O2 Concentration % .40 Respiration Rate (BPM) 26 O2 Delivery Method VENT Vent Mode A/C Expiratory Pressure (CMH2O/P) 5 Tidal Volume (CC) 500 Chemistry Sodium (137 - 145 mmol/L) 140 141 Potassium (3.5 - 5.1 mmol/L) 4.5 4.5 Chloride (98 - 107 mmol/L) 106 107 Carbon Dioxide (22 - 30 mmol/L) 21 L 20 L Anion Gap (5 - 16) 12 13 BUN (9 - 20 mg/dL) 33 H 31 H Creatinine (0.7 - 1.2 mg/dL) 1.3 H 1.3 H Estimated GFR (>60 ml/min) 52 L 52 L BUN/Creatinine Ratio (7 - 25 %) 25.4 H Glucose (65 - 99 mg/dL) 160 H Lactic Acid (0.7 - 2.1 mmol/L) 2.3 H Calcium (8.4 - 10.2 mg/dL) 7.3 L Phosphorus (2.5 - 4.5 mg/dL) 2.8 Magnesium (1.6 - 2.3 mg/dL) 2.2 Total Bilirubin (0.2 - 1.3 mg/dL) 1.3 AST (17 - 59 U/L) 21 ALT (21 - 72 U/L) 25 Troponin I (<0.11 ng/ml) < 0.01 Albumin (3.5 - 5.0 g/dL) 2.3 L Hematology CBC w Diff MAN DIFF ORDERED WBC (4.8 - 10.8 /CUMM) 10.7 RBC (4.70 - 6.10 /CUMM) 4.95 Hgb (14.0 - 18.0 G/DL) 13.9 L Hct (42 - 52 %) 42.0 MCV (80.0 - 94.0 FL) 84.8 MCH (27.0 - 31.0 PG) 28.2 RDW (11.5 - 14.5 %) 15.4 H Plt Count (130 - 400 /CUMM) 167 MPV (7.4 - 10.4 FL) 9.8 Gran % (42.2 - 75.2 %) 90.1 H Lymphocytes % (20.5 - 51.1 %) 6.8 L Monocytes % (1.7 - 9.3 %) 3.0 Eosinophils % (0 - 5 %) 0 Basophils % (0.0 - 2.0 %) 0.1 Absolute Granulocytes (1.4 - 6.5 /CUMM) 9.7 H Segmented Neutrophils (42.2 - 75.2 %) 60 Band Neutrophils (0.0 - 5.0 %) 22 H Absolute Lymphocytes (1.2 - 3.4 /CUMM) 0.7 L Lymphocytes (20.5 - 51.1 %) 12 L Monocytes (1.7 - 9.3 %) 4 Absolute Monocytes (0.10 - 0.60 /CUMM) 0.3 Absolute Eosinophils (0.0 - 0.7 /CUMM) 0 Absolute Basophils (0.0 - 0.2 /CUMM) 0 Platelet Estimate (ADEQUATE) ADEQUATE Anisocytosis 1+ PUBS MCHC (33.0 - 37.0 G/DL) 33.2 Miscellaneous Phlebotomy Draw Site MARK Other Body Source Fld Total RBCs Counted (%) 100 12/03 1715 Blood Gas pH (7.35 - 7.45 PH) 7.38 pCO2 (35 - 45 TORR) 33 L pO2 (80 - 100 TORR) 75 L HCO3 (21 - 28 MEQ/L) 19 L ABG O2 Sat (Measured) (>96.0 %) 95.0 L Carboxyhemoglobin (1.5 - 5.0 %) 0.8 L O2 Concentration % 40% Respiration Rate (BPM) 26 O2 Delivery Method VENT Vent Mode VC/AC Expiratory Pressure (CMH2O/P) 5 Tidal Volume (CC) 500 Chemistry Sodium (137 - 145 mmol/L) 138 Potassium (3.5 - 5.1 mmol/L) 4.8 Chloride (98 - 107 mmol/L) 104 Carbon Dioxide (22 - 30 mmol/L) 22 Anion Gap (5 - 16) 11 BUN (9 - 20 mg/dL) 29 H Creatinine (0.7 - 1.2 mg/dL) 1.1 Estimated GFR (>60 ml/min) > 60 Glucose (65 - 99 mg/dL) 214 H Lactic Acid (0.7 - 2.1 mmol/L) 2.8 H 3.1 H Calcium (8.4 - 10.2 mg/dL) 7.5 L Phosphorus (2.5 - 4.5 mg/dL) 3.2 Magnesium (1.6 - 2.3 mg/dL) 2.2 Total Bilirubin (0.2 - 1.3 mg/dL) 1.4 H AST (17 - 59 U/L) 22 ALT (21 - 72 U/L) 24 Albumin (3.5 - 5.0 g/dL) 2.4 L Hematology CBC w Diff MAN DIFF ORDERED WBC (4.8 - 10.8 /CUMM) 12.7 H RBC (4.70 - 6.10 /CUMM) 5.12 Hgb (14.0 - 18.0 G/DL) 14.4 Hct (42 - 52 %) 43.0 MCV (80.0 - 94.0 FL) 84.1 MCH (27.0 - 31.0 PG) 28.1 RDW (11.5 - 14.5 %) 14.5 Plt Count (130 - 400 /CUMM) 175 MPV (7.4 - 10.4 FL) 9.8 Gran % (42.2 - 75.2 %) 91.6 H Lymphocytes % (20.5 - 51.1 %) 5.6 L Monocytes % (1.7 - 9.3 %) 2.8 Eosinophils % (0 - 5 %) 0 Basophils % (0.0 - 2.0 %) 0 L Absolute Granulocytes (1.4 - 6.5 /CUMM) 11.7 H Segmented Neutrophils (42.2 - 75.2 %) 28 L Band Neutrophils (0.0 - 5.0 %) 41 H Absolute Lymphocytes (1.2 - 3.4 /CUMM) 0.7 L Lymphocytes (20.5 - 51.1 %) 21 Monocytes (1.7 - 9.3 %) 8 Absolute Monocytes (0.10 - 0.60 /CUMM) 0.4 Absolute Eosinophils (0.0 - 0.7 /CUMM) 0 Absolute Basophils (0.0 - 0.2 /CUMM) 0 Metamyelocytes (0.0 - 1.0 %) 2 H Platelet Estimate (ADEQUATE) ADEQUATE Normocytic RBCs VERIFIED Normochromic RBCs VERIFIED PUBS MCHC (33.0 - 37.0 G/DL) 33.4 Miscellaneous Phlebotomy Draw Site LEFT RADIAL Diagnostic Data EKG Results EKGs on presentation all show sinus rhythm and sinus tachycardia with borderline left axis deviation and no significant abnormalities. EKG yesterday showed sinus tachycardia with no acute changes. EKG at 8:46 AM today shows sinus tachycardia with frequent PACs and occasional PVCs and no acute changes. EKG at 9:37 AM today showed fairly clear-cut atrial fibrillation with PVCs with a heart rate of 125 and some nonspecific T-wave changes. CXR Results PATIENT: ROD ALFORD PRESENT AGE: 89 PATIENT ACCOUNT NO: [id number] : [birth year] LOCATION: [facility] ORDERING PHYSICIAN: JO DAVISON MD SERVICE DATE: 12/05/16 EXAM TYPE: RAD - XRY-PORTABLE CHEST XRAY EXAMINATION: XR PORTABLE CHEST CLINICAL INFORMATION: Intubated. COMPARISON: Portable chest 12/04/2016, 12/03/2016 TECHNIQUE: Portable AP chest is performed at 0620 hours. FINDINGS: Endotracheal tube tip is approximately 3.5 cm above fernando. Right internal jugular central line tip is at right atrium and distal end is imperceptible given the background film density. Nasogastric tube is seen to mid mediastinum and then imperceptible against background film density. Cardiomegaly and hilar and mediastinal contours are stable. Coarsening bronchovascular markings stable. Airspace opacity right base decreased. Left base stable. No overt vascular congestion. IMPRESSION: 1. Endotracheal tube 3.5 cm above fernando. 2. Right IJ and nasogastric tube distal ends obscured by background film density. 3. Airspace opacity/atelectasis right base decreased. Left base opacity stable. DICTATED BY: KIMMY DREW MD DATE/TIME DICTATED:12/05/16754 TOBACCO BLENDER:MABEL DATE/TIME TRANSCRIBED:12/05/16754 CONFIDENTIAL, DO NOT COPY WITHOUT APPROPRIATE AUTHORIZATION. <Electronically signed in Other Vendor System> Other Results CONCLUSIONS Left ventricular wall thickness at upper limits of normal. Normal left ventricular ejection fraction visually estimated at >65 Normal left atrial size. Mild thickening/calcification of the mitral valve leaflets. Mild mitral annular calcification. Diffuse thickening of the aortic valve cusps with minimally reduced excursion. No aortic stenosis. Right ventricular systolic pressure estimated to be within the normal range at 29 mmHg. The aortic root is upper limits of normal in size. The ascending aorta is mildly dilated at 3.9 cm diameter. Andrews Hilton M.D. (Electronically Signed) Final Date: 05 December 2016 13:31 Assessment/Plan Assessment/Plan This patient presented with perforated viscus which was operated on 3 days ago. Today he presents with hypotension, tachycardia, a brief period of atrial fibrillation and other signs of hemodynamic deterioration. This is likely due to sepsis. This has been treated with IV fluid administration, pressors and hemodynamic support. His rhythm showed a brief period of atrial fibrillation but now is back in sinus rhythm. He is on an amiodarone drip. I recommend continuing him on amiodarone for 24 hours. If he maintains sinus rhythm and he is hemodynamically more stable we can taper this off. I don't think he will need long-term antiarrhythmic treatment if his sepsis can be gotten under control. He is not a goodcandidate for anticoagulation at this point but we will reassess that if the atrial fibrillation becomes more of a problem. I will follow him along with you. Consult Acknowledgment - Thank you for your consult request.
--- NOTE | 2016-12-05 14:23 | NUR ---
PT NOW BACK IN SINUS TACH, EKG DONE AND SHOWN TO DR AGUILAR CARDIOLOGY
--- NOTE | 2016-12-05 14:32 | NUR ---
LEVO GTT TURNED DOWN TO 3MCG AT THIS TIME WILL MONITOR.
--- NOTE | 2016-12-05 15:11 | PN- Resident CRCU ---
Subjective HPI/CRCU Issues: Patient seen and examined. He is seen lying flat in bed with multiple lines in place. He is not rousable to verbal/tactile stimuli, however he does not appear to be in any acute distress. He is surrounded by many family members whom are up to date about his clinical conidition and have no further questions at this time. Review of systems is unobtainable. No overnight events reported. Objective Vital Signs & I&O Last 8 Hrs of Vitals and I&O: Vitals: - Temperature:101.5-101.9 - Heart Rate: 118-124 - Respiratory Rate: 19-25 - Systolic Blood pressure: 77 - 116 - Diastolic Blood pressure: 50-78 - Oxygen Saturation: 94-96% on 40% FiO2 Exam General Appearance: sedated, intubated, obese Other Physical Findings: General -elderly male with multiple lines in place in no acute distress HEENT - NCAT, PERRL, EOMI, anicteric sclera, endotracheal tube, NG tube Cardio - S1, S2 w/o murmurs/gallops/rubs Resp -there to auscultation bilaterally, no crackles/wheezing GI -soft, nontender, nondistended, soft bowel sounds present Neuro -sedated, pupils reactive to light bilaterally, spontaneous movements in all 4 extremities Weaning Parameters NIF: 42 Minute Volume: 13 Resp rate: 24 Vt: 520 Heart Rate: 107 Weaning Schedule Start Time: 0940 Minute Volume: 13 Resp Rate: 24 Vt: 520 Heart Rate: 107 Current Medications: Current Medications Sig/Ar Start time Last Medication Dose Route Stop Time Status Admin Acetaminophen 1,000 MG Q6P PRN 12/04 1945 AC 12/05 N/A 1 UNIT IV 0840 Albuterol Sulfate 3 ML Q4 12/02 2200 AC 12/05 INH 1320 Amiodarone HCl/ 150 MG ONCE ONE 12/05 1000 DC 12/05 Dextrose IV 12/05 1009 0954 N/A 1 UNIT Amiodarone HCl/ 360 MG Q12H 12/05 1000 AC 12/05 Dextrose IV 1009 N/A 1 UNIT Chlorpromazine 25 MG ONCE ONE 12/05 0230 CAN IV 12/05 0231 Dextrose/Sodium 1,000 ML Q10H 12/04 1845 AC 12/05 Chloride IV 1401 Dextrose/Sodium 1,000 ML Q13H 12/04 1445 DC 12/04 Chloride IV 1451 Fentanyl Citrate 1,000 MCG Q10H 12/04 1300 AC 12/05 Sodium Chloride 250 ML IV 0649 Heparin Sodium 5,000 UNIT Q8 12/02 2200 AC 12/05 (Porcine) SC 1401 Ipratropium [place] 2.5 ML Q4 12/02 2200 AC 12/05 INH 1320 Lorazepam 1 MG Q2P PRN 12/03 1330 AC 12/04 IV 2126 Morphine Sulfate 2 MG Q3P PRN 12/04 1300 AC IV Morphine Sulfate 4 MG Q3P PRN 12/02 1800 AC 12/04 IV 1259 Norepinephrine 4 MG Q24H 12/05 1045 AC 12/05 Sodium Chloride 250 ML IV 1041 Ondansetron HCl 4 MG Q6P PRN 12/02 1800 AC IV Pantoprazole Sodium 40 MG DAILY 12/02 2200 AC 12/05 IV 0840 Piperacillin Sod/ 4.5 GM Q8H 12/03 1400 AC 12/05 Tazobactam Sod IV 1401 Sodium Chloride 100 ML Sodium Chloride 1,000 ML BOLUS ONE 12/05 1200 DC 12/05 IV 12/05 1259 1153 Sodium Chloride 1,000 ML BOLUS ONE 12/05 0915 DC 12/05 IV 12/05 1014 0915 Sodium Chloride 250 ML BOLUS ONE 12/05 0645 DC 12/05 IV 12/05 0744 0637 Sodium Chloride 500 ML BOLUS ONE 12/05 0645 DC 12/05 IV 12/05 0744 0638 Sodium Chloride 250 ML BOLUS ONE 12/05 0530 DC 12/05 IV 12/05 0629 0525 Impression/Plan Impression/Problem List Impression: Patient was found to be in atrial fibrillation this morning around 8:30am via EKG after his heart rate was found to be elevated to the 150-170s. Dr. Hilton of cardiology was consulted and it was decided to attempt to control his heart rate patient should be given a amiodarone bolus and started on a drip. Patient remained with heart rate 120-140s throughout the day. Repeat EKG around 2:30pm demonstrated sinus tachycardia. Dr. Hilton was informed and it was decided to maintain the patient on the amiodarone drip for 24 hours and to hold off anticoagulation. CT Chest/Abdomen/Pelvis obtained to attempt to find other acute patholgies that may be causing patients fevers. Echocardiogram, bilateral lower extremity dopplers were obtained. Levophed was started in the setting of sepsis and intravenous fluid resusication. Lactic acid levels were obtained about found to be increasingly elevated. Troponins were negative. Problem List: - Perforated sigmoid colon, s/p surgical repair - Peritonitis, on Zosyn - Sepsis - New onset Atrial Fibrillation, now back in normal sinus rhythm on amiodarone Respiratory: History of asthma. Intubated on ventilator s/p surgical repair of his perforated sigmoid colon. - Minimally responsive to verbal/tactile stimuli - Intubated on ventilator - Daily CXR, ABG - Fentanyl drip for sedation Cardiovascular: History of New onset atrial fibrillation identified on telemetry, patient started on amiodarone drip. - Amiodarone bolus with drip for 24 hours - Cardiology consult placed, recommendations followed Respiratory: - Intubated on ventilator - Continue albuterol/ipratropium Gastrointestinal/Infectious Disease: Perforated sigmoid colonic complicated with peritonitis. No OR cultures taken. - Zosyn 4.5mg IV Q6H - Protonix 40mg IV Daily - Zofran 4mg IV Q6H PRN Nausea - Colostomy bag in place Metabolic: Sepsis in the setting of perforated sigmoid colon. - Antibiotics as above - Lactic acidosis - D5NS@ 100mL/hr - Levophed - Acetaminophen 1g IV Q6H PRN - Fever - Ativan 1mg - F/U C&S Pain Plan: - Morphine 2mg IV Q3H PRN - PAIN 4-6 - Morphine 4mg IV Q3H PRN - PAIN 7-10 Diet - NPO, D5NS DVT Prophylaxis - sc lovenox Code Status - Full Code Problem List: 1. Perforated abdominal viscus Pain Ratin Tomorrow's Labs & Rationales: CBC ICU bundle CXR ABG Plan DVT/Prophylaxis: sc lovenox Code Status: Full Code
[2016-12-05 16:00] VITALS: BP 110/62
--- NOTE | 2016-12-05 17:33 | NUR ---
LEVO GTT TURNED UP TO 5MCG AT THIS TIME. B/P 70/47
[2016-12-05 20:00] VITALS: BP 110/65
--- NOTE | 2016-12-05 21:22 | NUR ---
1999 REC'D PT IN BED W/FAMILY AT HIS BEDSIDE. UPDATED ON PT'S STATUS TO FAMILY. PT MOVING HEAD BACK/FORTH. ON FENT GTT @100MCG/MIN. ATIVAN 1MG IVP GIVEN SEE EMAR. VENTED AC MODE 20/ VT 500/ FIO2 40%/ PEEP 5. POX 95%, LS RHONCHI THROUGHOUT & DIMINISHED AT BASES. SUCTIONED SM AMT YELLOW SECRETIONS VIA ETT & ORALLY SUCTIONED/MOUTH CARE DONE. NGT INSITU TO R NARES TO LWS OF GREENISH BILE. ABD DISTENDED BUT SOFT BS HYPOACTIVE. COLOSTOMY INSITU, STOMA SWOLLEN/PICK CLEAR BROWN LIQUID IN THE DRAINAGE BAG. FC INSITU & DRAINING JUJU URINE LOW U/O MD AWARE. CONT TO MONITOR.
[2016-12-06] VITALS: BP 119/64
[2016-12-06 04:00] VITALS: BP 108/67
[2016-12-06 04:57] LABS: ABSOLUTE BASOPHIL COUNT 0 /CUMM (0.0-0.2); ABSOLUTE EOSINOPHIL COUNT 0 /CUMM (0.0-0.7); ABSOLUTE GRANULOCYTE CT 5.5 /CUMM (1.4-6.5); ABSOLUTE LYMPH COUNT 0.7 /CUMM (1.2-3.4); ABSOLUTE MONOCYTE COUNT 1.5 /CUMM (0.10-0.60); BASOPHIL % 0 % (0.0-2.0); EOSINOPHIL % 0.1 % (0-5); HEMATOCRIT 38.7 % (42-52); MEAN CORPUSCULAR HGB 28.5 PG (27.0-31.0); MEAN CORPUSCULAR VOLUME 83.8 FL (80.0-94.0); MEAN PLATELET VOLUME 10.1 FL (7.4-10.4); PLATELET COUNT 173 /CUMM (130-400); RED BLOOD CELL CT 4.62 /CUMM (4.70-6.10); WHITE BLOOD CELL COUNT 7.7 /CUMM (4.8-10.8)
[2016-12-06 05:12] LABS: GRANULOCYTE % 71.4 % (42.2-75.2)
--- NOTE | 2016-12-06 06:05 | PN- General Surgery ---
See Addendum Subjective Subjective: Patient remains intubated and sedated on a fentanyl drip. He went into atrial fibrillation yesterday morning, and amiodarone was initiated. After about 5 hours, he converted to sinus tachycardia, and is in normal sinus rhythm at this time. He required pressors throughout most of the day, but is almost weaned off currently. He is receiving occasional doses of Ativan for agitation. MAXIMUM TEMPERATURE was 102 early yesterday morning. CURRENT TEMPERATURE is 98.1. Objective Vital Signs and I&Os Vital Signs Date Time Temp Pulse Resp B/P Pulse O2 O2 Flow FiO2 Ox Delivery Rate 12/06 0400 99 Ventilator 40% 12/06 0400 98.1 82 23 108/67 99 Ventilator 40% 12/06 0318 40 12/06 0110 40 12/06 0052 87 91/59 12/06 0045 99.5 12/06 0000 100.8 100 26 119/64 96 Ventilator 40% 12/06 0000 9 Ventilator 40% 12/05 2346 100.9 12/05 2130 40 12/05 2000 95 Ventilator 40% 12/05 2000 100.8 107 27 110/65 95 Ventilator 35% 12/05 1944 40 12/05 1742 100.1 12/05 1649 100.8 12/05 1649 108 94/60 08 1642 40 12/05 1600 97 Ventilator 40% 12/05 1600 100.6 108 27 110/62 97 Ventilator 40% 12/05 1323 40 12/05 1200 96 Ventilator 40% 12/05 1200 99.8 146 25 100/71 96 Ventilator 40% 12/05 1041 125 80/0 12/05 1009 126 82/0 12/05 0954 179 82/0 12/05 0915 101.5 12/05 0840 101.9 12/05 0830 40 12/05 0800 98 Ventilator 40% 12/05 0800 102.0 128 27 96/68 98 Ventilator 40% 12/05 0632 40 Intake & Output 12/06 0812/06 0000 12/05 1600 12/05 0812/05 0000 12/04 1600 Intake Total 1382 3808 1414 1511.2 1578 Output Total 285 285 304 979 7406 Balance 1097 3523 1089 636.2 -522 Intake, IV 1382 3808 1414 1511.2 1578 Intake, Oral 0 0 0 Output, 75 75 125 25 100 Gastric Drainage Output, Stool 10 10 0 0 0 Output, Urine 200 200 210 910 1208 Physical Exam: Gen.: Patient remains intubated and lightly sedated. He winces with painful stimuli. Cardiac: regular Pulmonary: Mostly clear, but occasional coarse breath sounds bilaterally. Abdomen: Remains moderately distended. Midline incision is intact with singh. The inferior packing was removed. The superior packing was slightly inched back. Small amount of cloudy fluid was noted in each area. No bowel sounds were heard. NG tube is draining large amounts of bilious output. Stoma is pink and edematous. No air or output from the ostomy appliance. Extremities: Bilateral upper and lower urinary peripheral and scrotal edema noted. Results Last 48 Hours of Labs: Laboratory Tests 12/06 12/06 12/05 0505 0439 2055 Blood Gas pH (7.35 - 7.45 PH) 7.30 *L pCO2 (35 - 45 TORR) 29 L pO2 (80 - 100 TORR) 103 H HCO3 (21 - 28 MEQ/L) 14 L ABG O2 Sat (Measured) (>96.0 %) 97.0 P-50 (Temp Corrected) Y Carboxyhemoglobin (1.5 - 5.0 %) 0.1 L O2 Concentration % 40% Temperature (97.0 - 100.0 FARH) 98.1 Respiration Rate (BPM) 20 O2 Delivery Method ESPRIT Vent Mode AC Expiratory Pressure (CMH2O/P) 5 Tidal Volume (CC) 500 Chemistry Sodium (137 - 145 mmol/L) 144 Potassium (3.5 - 5.1 mmol/L) 3.7 Chloride (98 - 107 mmol/L) 116 H Carbon Dioxide (22 - 30 mmol/L) 16 L Anion Gap (5 - 16) 12 BUN (9 - 20 mg/dL) 43 H Creatinine (0.7 - 1.2 mg/dL) 1.5 H Estimated GFR (>60 ml/min) 44 L Glucose (65 - 99 mg/dL) 189 H Lactic Acid (0.7 - 2.1 mmol/L) 2.2 H Calcium (8.4 - 10.2 mg/dL) 6.6 L Phosphorus (2.5 - 4.5 mg/dL) 3.4 Magnesium (1.6 - 2.3 mg/dL) 2.0 Total Bilirubin (0.2 - 1.3 mg/dL) 1.1 AST (17 - 59 U/L) 31 ALT (21 - 72 U/L) 29 Albumin (3.5 - 5.0 g/dL) 1.8 L Hematology CBC w Diff MAN DIFF ORDERED WBC (4.8 - 10.8 /CUMM) 7.7 RBC (4.70 - 6.10 /CUMM) 4.62 L Hgb (14.0 - 18.0 G/DL) 13.1 L Hct (42 - 52 %) 38.7 L MCV (80.0 - 94.0 FL) 83.8 MCH (27.0 - 31.0 PG) 28.5 RDW (11.5 - 14.5 %) 16.0 H Plt Count (130 - 400 /CUMM) 173 MPV (7.4 - 10.4 FL) 10.1 Gran % (42.2 - 75.2 %) 71.4 Lymphocytes % (20.5 - 51.1 %) 9.6 L Monocytes % (1.7 - 9.3 %) 18.9 H Eosinophils % (0 - 5 %) 0.1 Basophils % (0.0 - 2.0 %) 0 L Absolute Granulocytes (1.4 - 6.5 /CUMM) 5.5 Segmented Neutrophils (42.2 - 75.2 %) 66 Band Neutrophils (0.0 - 5.0 %) 11 H Absolute Lymphocytes (1.2 - 3.4 /CUMM) 0.7 L Lymphocytes (20.5 - 51.1 %) 18 L Monocytes (1.7 - 9.3 %) 4 Absolute Monocytes (0.10 - 0.60 /CUMM) 1.5 H Absolute Eosinophils (0.0 - 0.7 /CUMM) 0 Absolute Basophils (0.0 - 0.2 /CUMM) 0 Metamyelocytes (0.0 - 1.0 %) 1 Anisocytosis 1+ PUBS MCHC (33.0 - 37.0 G/DL) 34.0 Miscellaneous Phlebotomy Draw Site MARK Other Body Source Fld Total RBCs Counted (%) 100 12/05 12/05 12/05 12/05 12/05 1820 1658 1338 0949 0535 Blood Gas pH (7.35 - 7.45 PH) 7.34 L pCO2 (35 - 45 TORR) 30 L pO2 (80 - 100 TORR) 95 HCO3 (21 - 28 MEQ/L) 16 L ABG O2 Sat (Measured) (>96.0 %) 96.0 P-50 (Temp Corrected) Y Carboxyhemoglobin (1.5 - 5.0 %) 0.4 L O2 Concentration % 40% Temperature (97.0 - 100.0 FARH) 102.9 H Respiration Rate (BPM) 20 O2 Delivery Method ESPRIT Vent Mode AC Expiratory Pressure (CMH2O/P) 5 Tidal Volume (CC) 500 Chemistry Lactic Acid (0.7 - 2.1 mmol/L) Cancelled 2.6 H 2.4 H 2.9 H Troponin I (<0.11 ng/ml) 0.02 Miscellaneous Phlebotomy Draw Site [place] 12/05 12/05 12/04 0410 0410 1708 Chemistry Sodium (137 - 145 mmol/L) 142 Potassium (3.5 - 5.1 mmol/L) 4.2 Chloride (98 - 107 mmol/L) 108 H Carbon Dioxide (22 - 30 mmol/L) 20 L Anion Gap (5 - 16) 13 BUN (9 - 20 mg/dL) 36 H Creatinine (0.7 - 1.2 mg/dL) 1.5 H Estimated GFR (>60 ml/min) 44 L Glucose (65 - 99 mg/dL) 133 H Hemoglobin A1c Pending Lactic Acid (0.7 - 2.1 mmol/L) 1.9 Calcium (8.4 - 10.2 mg/dL) 7.2 L Phosphorus (2.5 - 4.5 mg/dL) 3.0 Magnesium (1.6 - 2.3 mg/dL) 2.1 Total Bilirubin (0.2 - 1.3 mg/dL) 1.5 H AST (17 - 59 U/L) 24 ALT (21 - 72 U/L) 36 Albumin (3.5 - 5.0 g/dL) 2.2 L Cortisol AM Sample (4.46 - 22.7 ug/dL) 35.1 H Hematology CBC w Diff MAN DIFF ORDERED WBC (4.8 - 10.8 /CUMM) 8.9 RBC (4.70 - 6.10 /CUMM) 5.00 Hgb (14.0 - 18.0 G/DL) 14.1 Hct (42 - 52 %) 42.2 MCV (80.0 - 94.0 FL) 84.3 MCH (27.0 - 31.0 PG) 28.3 RDW (11.5 - 14.5 %) 15.5 H Plt Count (130 - 400 /CUMM) 188 MPV (7.4 - 10.4 FL) 9.9 Gran % (42.2 - 75.2 %) 89.4 H Lymphocytes % (20.5 - 51.1 %) 8.8 L Monocytes % (1.7 - 9.3 %) 1.7 Eosinophils % (0 - 5 %) 0 Basophils % (0.0 - 2.0 %) 0.1 Absolute Granulocytes (1.4 - 6.5 /CUMM) 7.9 H Segmented Neutrophils (42.2 - 75.2 %) 73 Band Neutrophils (0.0 - 5.0 %) 16 H Absolute Lymphocytes (1.2 - 3.4 /CUMM) 0.8 L Lymphocytes (20.5 - 51.1 %) 10 L Monocytes (1.7 - 9.3 %) 1 L Absolute Monocytes (0.10 - 0.60 /CUMM) 0.2 Absolute Eosinophils (0.0 - 0.7 /CUMM) 0 Absolute Basophils (0.0 - 0.2 /CUMM) 0 Platelet Estimate (ADEQUATE) ADEQUATE Normochromic RBCs VERIFIED Poikilocytosis 1+ Anisocytosis 1+ PUBS MCHC (33.0 - 37.0 G/DL) 33.6 12/04 12/04 1410 1408 Blood Gas pH (7.35 - 7.45 PH) 7.40 pCO2 (35 - 45 TORR) 15 L pO2 (80 - 100 TORR) 102 H HCO3 (21 - 28 MEQ/L) 9 L ABG O2 Sat (Measured) (>96.0 %) 97.0 P-50 (Temp Corrected) N Carboxyhemoglobin (1.5 - 5.0 %) 0.3 L O2 Concentration % 40% Respiration Rate (BPM) 20 O2 Delivery Method VENT Vent Mode AC Expiratory Pressure (CMH2O/P) 5 Tidal Volume (CC) 500 Pressure Support (CMH2O/P) 0 Chemistry Sodium (137 - 145 mmol/L) 140 Potassium (3.5 - 5.1 mmol/L) 4.5 Chloride (98 - 107 mmol/L) 106 Carbon Dioxide (22 - 30 mmol/L) 21 L Anion Gap (5 - 16) 12 BUN (9 - 20 mg/dL) 33 H Creatinine (0.7 - 1.2 mg/dL) 1.3 H Estimated GFR (>60 ml/min) 52 L BUN/Creatinine Ratio (7 - 25 %) 25.4 H Lactic Acid (0.7 - 2.1 mmol/L) 2.3 H Troponin I (<0.11 ng/ml) < 0.01 Miscellaneous Phlebotomy Draw Site RIGHT A-LINE Recent Imaging Studies: CT scan of chest, abdomen, and pelvis on 12/05/16: 1. There is a small to moderate volume of ascites. There is extensive mesenteric edema as well as small pleural effusions and anasarca. Appearance is nonspecific and may all be postoperative in etiology. 2. There is a subtle prominence of proximal small bowel loops. An early jejunal bowel obstruction should be considered and follow-up is advised. Potential etiologies include postsurgical changes in the left lower quadrant or a large left internal hernia. 3. Bowel wall thickening of the ascending and transverse colon consistent with colitis. Patent diverting descending colostomy. Intact appearance to Kirkland's pouch. 4. Left greater than right basilar consolidation is likely compressive atelectasis but pneumonia cannot be excluded in the setting of a postoperative fever. 5. Emphysema. 6. Evidence of prior granulomatous disease with calcified mediastinal and left hilar nodes, left lower lobe calcified nodule and hepatic calcifications. 7. A distended gallbladder with minimal nonspecific wall thickening in the setting of ascites. Cholecystitis is not suspected. 8. Partially collapsed, sclerotic T11 vertebral body of uncertain etiology. 9. 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 Aortic valvular calcifications. Echocardiography would be helpful in this regard. CT scan of the chest on 12/05/2016 Assessment/Plan Assessment/Plan Patient is an 89-year-old male with past medical history significant for hypertension, hyperlipidemia, and asthma, who is now postoperative day #3 status post exploratory laparotomy with Kirkland's procedure for perforated viscus. Intraoperatively he was found to have gross fecal contamination due to the perforation. Postoperative course was complicated by rapid A. fib, prompting the need for an amiodarone drip. At this time, he remains intubated and sedated , on a low dose of pressors. Plan: -Still awaiting bowel function. Patient remains intubated and will be kept nothing by mouth with an NG tube. -We will continue to inch packing out slowly each day. -Agree with liberal administration of IV fluids. Keep Edward for critical I's and O's. -Continue IV Zosyn as per ID. Follow-up blood and urine cultures from 12/04 and , with which are no growth to date. -Protonix for GI prophylaxis. -DVT prophylaxis with subcutaneous heparin and Alps. -Continue medical management per critical care team. -Will discuss with attending. Core Measures/Miscellaneous Edward Catheter Date In: 12/02/16 Still Needed? Yes Venous Thromboembolism VTE Risk Factors: Acute medical illness, Age > 40, Surgery VTE Contraindications: No Contraindications VTE Prophylaxis Ordered Inpt Mech & Pharm VTE Diagnosis: No Beta Abelardo Is Beta Abelardo a Home Med? No Antibiotics Is Patient on Antibiotics? Yes If Yes: infection
--- NOTE | 2016-12-06 07:47 | RADIOLOGY REPORT ---
EXAMINATION: XR PORTABLE CHEST CLINICAL INFORMATION: Rule out respiratory disease. Patient intubated on ventilator. COMPARISON: Several prior chest x-rays, most recent of which is dated 12/05/2016. T scan of the chest dated 12/05/2016. TECHNIQUE: Portable view of the chest was obtained. FINDINGS: Endotracheal tube tip 4.5 cm above the fernando. Right jugular central venous line in the deep SVC. Cardiomediastinal silhouette enlarged. Ectasia and aneurysmal dilatation of the aorta again seen. Low lung volumes are present with bibasilar opacities, left greater than right, unchanged from prior studies, consistent with bilateral small pleural effusions and associated volume loss and airspace disease as demonstrated on recent CT scan. Mild central vascular congestion. No overt pulmonary edema. No pneumothorax. Included bony structures are unremarkable. IMPRESSION: 1. Endotracheal tube tip 4.5 cm above the fernando. Right jugular central venous line in deep SVC. 2. No significant change in bibasilar volume loss and airspace disease with associated small pleural effusions, left greater than right.
[2016-12-06 08:00] VITALS: BP 102/64
--- NOTE | 2016-12-06 08:21 | NUR ---
PT WAS MEDICATED W/ATIVAN 1MG Q2HR PRN SEE EMAR SAS 2-5. TITRATED LEVO GTT TO WEAN OFF AT 7AM SBP 100-120'S. TURNED OFF THE COOLING BLANKET WHEN TEMP REACHED 97-98 DEGREE. COMPLETE BED BATH GIVEN. SR ON THE MONITOR HR 80-90'S. FC DRAINED 600CC FOR 24HRS. AWARE. NGT DRAINED > 300CC OF GREENISH BILE & CHANGED DSG TO DISTAL PART OF THE ABD INCISION. MARIANNE SWAIN AWARE. CONT TO MONITOR. FAMILY ROOMING IN & UPDATED PT'S STATUS AT ALL TIMES. [address]30 [facility].
--- NOTE | 2016-12-06 09:21 | PN- CRCU ---
Subjective HPI/Critical Care Issues: pt seen and examined out of a.fib amio drip arousable through sedation ROS limited given sedation 100.9 tmax 98.7 now ECHO/Dopplers no signs of VTE Objective Current Medications: Current Medications Sig/Ar Start time Last Medication Dose Route Stop Time Status Admin Acetaminophen 1,000 MG Q6P PRN 12/04 1945 AC 12/05 N/A 1 UNIT IV 2346 Albuterol Sulfate 3 ML Q4 12/02 2200 AC 12/06 INH 0821 Amiodarone HCl/ 150 MG ONCE ONE 12/05 1000 DC 12/05 Dextrose IV 12/05 1009 0954 N/A 1 UNIT Amiodarone HCl/ 360 MG Q12H 12/05 1000 AC 12/06 Dextrose IV 0612 N/A 1 UNIT Dextrose/Sodium 1,000 ML Q6H 12/05 1830 AC 12/06 Chloride IV 0530 Dextrose/Sodium 1,000 ML Q10H 12/04 1845 DC 12/05 Chloride IV 1401 Fentanyl Citrate 1,000 MCG Q10H 12/04 1300 AC 12/06 Sodium Chloride 250 ML IV 0328 Heparin Sodium 5,000 UNIT Q8 12/02 2200 AC 12/06 (Porcine) SC 0623 Ipratropium Ephraim 2.5 ML Q4 12/02 2200 AC 12/06 INH 0821 Lorazepam 1 MG Q2P PRN 12/03 1330 AC 12/06 IV 0847 Morphine Sulfate 2 MG Q3P PRN 12/04 1300 AC IV Morphine Sulfate 4 MG Q3P PRN 12/02 1800 AC 12/04 IV 1259 Norepinephrine 4 MG Q24H 12/05 1045 AC 12/06 Sodium Chloride 250 ML IV 0052 Norepinephrine 4 MG .STK-MED ONE 12/05 1032 DC IV 12/05 1033 Ondansetron HCl 4 MG Q6P PRN 12/02 1800 AC IV Pantoprazole Sodium 40 MG DAILY 12/02 2200 AC 12/06 IV 0847 Piperacillin Sod/ 4.5 GM Q8H 12/03 1400 AC 12/06 Tazobactam Sod IV 0624 Sodium Chloride 100 ML Potassium Phosphate 15 mMol ONE ONE 12/06 0815 AC Dextrose/Water 250 ML IV 12/06 1218 Sodium Chloride 1,000 ML BOLUS ONE 12/05 1200 DC 12/05 IV 12/05 1259 1153 Sodium Chloride 1,000 ML BOLUS ONE 12/05 914 DC 12/05 IV 12/05 1014 0915 Vital Signs & I&O Last 24 Hrs of Vitals and I&O: Vital Signs Date Time Temp Pulse Resp B/P Pulse O2 O2 Flow FiO2 Ox Delivery Rate 12/06 0822 40 12/06 08 98.7 92 24 102/64 99 Ventilator 40% 12/06 0621 40 12/06 0612 88 124/72 12/06 0400 99 Ventilator 40% 12/06 0400 98.1 82 23 108/67 99 Ventilator 40% 12/06 0318 40 12/06 0110 40 12/06 0052 87 91/59 12/06 0045 99.5 12/06 0000 100.8 100 26 119/64 96 Ventilator 40% 12/06 0000 9 Ventilator 40% 12/05 2346 100.9 12/05 2200 107 117/64 12/05 2130 40 12/05 2000 95 Ventilator 40% 12/05 2000 100.8 107 27 110/65 95 Ventilator 35% 12/05 1944 40 12/05 1742 100.1 12/05 1649 100.8 12/05 1649 108 94/60 12/05 1642 40 12/05 1600 97 Ventilator 40% 12/05 1600 100.6 108 27 110/62 97 Ventilator 40% 12/05 1323 40 12/05 1200 96 Ventilator 40% 12/05 1200 99.8 146 25 100/71 96 Ventilator 40% 12/05 1041 125 80/0 12/05 1009 126 82/0 12/05 0954 179 82/0 12/05 0915 101.5 Intake & Output 12/06 1600 12/06 0800 12/06 0000 Intake Total 1793 1382 Output Total 510 285 Balance 1283 1097 Intake, IV 1793 1382 Output, 300 75 Gastric Drainage Output, Stool 10 10 Output, Urine 200 200 Exam Other Physical Findings: gen intubated heent ett cvs s1, s2 lungs transmitted abd diminished bs+ ext no edema Results Last 24 Hrs of Lab Results: Laboratory Tests 12/06/16 0805: Lactic Acid 2.0 12/06/16 0505: pH 7.30 *L, pCO2 29 L, pO2 103 H, HCO3 14 L, ABG O2 Sat (Measured) 97.0, P-50 (Temp Corrected) Y, Carboxyhemoglobin 0.1 L, O2 Concentration % 40%, Temperature 98.1, Respiration Rate 20, O2 Delivery Method ESPRIT, Vent Mode AC, Expiratory Pressure 5, Tidal Volume 500, Phlebotomy Draw Site MARK 12/06/16 0439: Anion Gap 12, Estimated GFR 44 L, Glucose 189 H, Calcium 6.6 L, Phosphorus 3.4, Magnesium 2.0, Total Bilirubin 1.1, AST 31, ALT 29, Albumin 1.8 L, CBC w Diff MAN DIFF ORDERED, RBC 4.62 L, MCV 83.8, MCH 28.5, RDW 16.0 H, MPV 10.1, Gran % 71.4, Lymphocytes % 9.6 L, Monocytes % 18.9 H, Eosinophils % 0.1, Basophils % 0 L, Absolute Granulocytes 5.5, Segmented Neutrophils 66, Band Neutrophils 11 H, Absolute Lymphocytes 0.7 L, Lymphocytes 18 L, Monocytes 4, Absolute Monocytes 1.5 H, Absolute Eosinophils 0, Absolute Basophils 0, Metamyelocytes 1, Anisocytosis 1+, PUBS MCHC 34.0, Fld Total RBCs Counted 100 12/05/16 2055: Lactic Acid 2.2 H 12/05/16 1820: Lactic Acid Cancelled 12/05/16 1658: Lactic Acid 2.6 H 12/05/16 1338: Lactic Acid 2.4 H 12/05/16 0949: Lactic Acid 2.9 H, Troponin I 0.02 Impression/Plan Impression/Plan Impression/Plan: Impression 89 year old man * 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 for acute abdominal perforation * Respiratory failure with increased bibasilar opacitie, maybe fluid overload * 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 * lactic acidosis improved Plan Respiratory - Monitor chest x-rays and ABGs - TRC/Nebs ID - Zosyn, ID f/u, cx monitoring, fever/wbc monitoring - likely GI source, agree with CAT scan abdomen and pelvis without contrast, would add CT chest as well - given moderate ascites, will ask IR for dx paracentesis CVS - monitor hemodynamics - monitor CVP - no evidence of VTE Heme - monitor cbc, coags Metabolic - ins/outs, sis, nephrology input early on, if creatinine does not improve will call nephrology Alimentary - NPO, per surgery - D5 1/2 NS Neuro - sedation as necessary for comfort DVT prophylaxis at all times TTS 40 min Code Status: Full Code
--- NOTE | 2016-12-06 09:22 | PN- Cardiology ---
Subjective Subjective: This patient had several hour episode of atrial fibrillation while he was acutely septic yesterday. He converted to sinus rhythm while on amiodarone and has maintained sinus rhythm since yesterday afternoon. He remains intubated and sedated and his vital signs have been acceptable. Objective Vital Signs and I&Os Vital Signs Date Time Temp Pulse Resp B/P Pulse O2 O2 Flow FiO2 Ox Delivery Rate 12/06 821 40 12/06 08 98.7 92 24 102/64 99 Ventilator 40% 12/06 0621 40 12/06 0612 88 124/72 12/06 0400 99 Ventilator 40% 12/06 0400 98.1 82 23 108/67 99 Ventilator 40% 12/06 0318 40 12/06 0110 40 12/06 0052 87 91/59 12/06 0045 99.5 12/06 0000 100.8 100 26 119/64 96 Ventilator 40% 12/06 0000 9 Ventilator 40% 12/05 2346 100.9 12/05 2200 107 117/64 12/05 2130 40 12/05 2000 95 Ventilator 40% 12/05 2000 100.8 107 27 110/65 95 Ventilator 35% 12/05 1944 40 12/05 1742 100.1 12/05 1649 100.8 12/05 1649 108 94/60 12/05 1642 40 12/05 1600 97 Ventilator 40% 12/05 1600 100.6 108 27 110/62 97 Ventilator 40% 12/05 1323 40 12/05 1200 96 Ventilator 40% 12/05 1200 99.8 146 25 100/71 96 Ventilator 40% 12/05 1041 125 80/0 12/05 1009 126 82/0 12/05 0954 179 82/0 Intake & Output 12/06 1600 12/06 0800 12/06 0000 12/05 1600 12/05 0812/05 0000 Intake Total 1793 1382 3808 1414 1511.2 Output Total 510 285 285 325 875 Balance 1283 1097 3523 1089 636.2 Intake, IV 1793 1382 3808 1414 1511.2 Intake, Oral 0 0 Output, 300 75 75 125 25 Gastric Drainage Output, Stool 10 10 10 0 0 Output, Urine 200 200 200 200 850 Physical Exam: He remains on the respirator and sedated. Chest is aerating well Heart reveals regular rhythm and no murmurs Current Medications: Current Medications Sig/Ar Start time Last Medication Dose Route Stop Time Status Admin Acetaminophen 1,000 MG Q6P PRN 12/04 1945 AC 12/05 N/A 1 UNIT IV 2346 Albuterol Sulfate 3 ML Q4 12/02 2200 AC 12/06 INH 0821 Amiodarone HCl/ 150 MG ONCE ONE 12/05 1000 DC 12/05 Dextrose IV 12/05 1009 0954 N/A 1 UNIT Amiodarone HCl/ 360 MG Q12H 12/05 1000 DC 12/06 Dextrose IV 0612 N/A 1 UNIT Dextrose/Sodium 1,000 ML Q6H 12/05 1830 AC 12/06 Chloride IV 0530 Dextrose/Sodium 1,000 ML Q10H 12/04 1845 DC 12/05 Chloride IV 1401 Fentanyl Citrate 1,000 MCG Q10H 12/04 1300 AC 12/06 Sodium Chloride 250 ML IV 0328 Heparin Sodium 5,000 UNIT Q8 12/02 2200 AC 12/06 (Porcine) SC 0623 Ipratropium [place] 2.5 ML Q4 12/02 2200 AC 12/06 INH 0821 Lorazepam 1 MG Q2P PRN 12/03 1330 AC 12/06 IV 0847 Morphine Sulfate 2 MG Q3P PRN 12/04 1300 AC IV Morphine Sulfate 4 MG Q3P PRN 12/02 1800 AC 12/04 IV 1259 Norepinephrine 4 MG Q24H 12/05 1045 AC 12/06 Sodium Chloride 250 ML IV 0052 Norepinephrine 4 MG .STK-MED ONE 12/05 1032 DC IV 12/05 1033 Ondansetron HCl 4 MG Q6P PRN 12/02 1800 AC IV Pantoprazole Sodium 40 MG DAILY 12/02 2200 AC 12/06 IV 0847 Piperacillin Sod/ 4.5 GM Q8H 12/03 1400 AC 12/06 Tazobactam Sod IV 0624 Sodium Chloride 100 ML Potassium Phosphate 15 mMol ONE ONE 12/06 0815 AC Dextrose/Water 250 ML IV 12/06 1218 Sodium Chloride 1,000 ML BOLUS ONE 12/05 1200 DC 12/05 IV 12/05 1259 1153 Sodium Chloride 1,000 ML BOLUS ONE 12/05 0915 DC 12/05 IV 12/05 1014 0915 Results Last 48 Hrs of Labs/Mics: Laboratory Tests 12/06/16 0805: Lactic Acid 2.0 12/06/16 0505: pH 7.30 *L, pCO2 29 L, pO2 103 H, HCO3 14 L, ABG O2 Sat (Measured) 97.0, P-50 (Temp Corrected) Y, Carboxyhemoglobin 0.1 L, O2 Concentration % 40%, Temperature 98.1, Respiration Rate 20, O2 Delivery Method ESPRIT, Vent Mode AC, Expiratory Pressure 5, Tidal Volume 500, Phlebotomy Draw Site [place] 12/06/16 0439: Anion Gap 12, Estimated GFR 44 L, Glucose 189 H, Calcium 6.6 L, Phosphorus 3.4, Magnesium 2.0, Total Bilirubin 1.1, AST 31, ALT 29, Albumin 1.8 L, CBC w Diff MAN DIFF ORDERED, RBC 4.62 L, MCV 83.8, MCH 28.5, RDW 16.0 H, MPV 10.1, Gran % 71.4, Lymphocytes % 9.6 L, Monocytes % 18.9 H, Eosinophils % 0.1, Basophils % 0 L, Absolute Granulocytes 5.5, Segmented Neutrophils 66, Band Neutrophils 11 H, Absolute Lymphocytes 0.7 L, Lymphocytes 18 L, Monocytes 4, Absolute Monocytes 1.5 H, Absolute Eosinophils 0, Absolute Basophils 0, Metamyelocytes 1, Anisocytosis 1+, PUBS MCHC 34.0, Fld Total RBCs Counted 100 12/05/16 2055: Lactic Acid 2.2 H 12/05/16 1820: Lactic Acid Cancelled 12/05/16 1658: Lactic Acid 2.6 H 12/05/16 1338: Lactic Acid 2.4 H 12/05/16 0949: Lactic Acid 2.9 H, Troponin I 0.02 12/05/16 0535: pH 7.34 L, pCO2 30 L, pO2 95, HCO3 16 L, ABG O2 Sat (Measured) 96.0, P-50 ( Temp Corrected) Y, Carboxyhemoglobin 0.4 L, O2 Concentration % 40%, Temperature 102.9 H, Respiration Rate 20, O2 Delivery Method ESPRIT, Vent Mode AC, Expiratory Pressure 5, Tidal Volume 500, Phlebotomy Draw Site [place] 12/05/16 0410: Hemoglobin A1c Pending 12/05/16 0410: Anion Gap 13, Estimated GFR 44 L, Glucose 133 H, Calcium 7.2 L, Phosphorus 3.0, Magnesium 2.1, Total Bilirubin 1.5 H, AST 24, ALT 36, Albumin 2.2 L, Cortisol AM Sample 35.1 H, CBC w Diff MAN DIFF ORDERED, RBC 5.00, MCV 84.3, MCH 28.3, RDW 15.5 H, MPV 9.9, Gran % 89.4 H, Lymphocytes % 8.8 L, Monocytes % 1.7, Eosinophils % 0, Basophils % 0.1, Absolute Granulocytes 7.9 H, Segmented Neutrophils 73, Band Neutrophils 16 H, Absolute Lymphocytes 0.8 L, Lymphocytes 10 L, Monocytes 1 L, Absolute Monocytes 0.2, Absolute Eosinophils 0, Absolute Basophils 0, Platelet Estimate ADEQUATE, Normochromic RBCs VERIFIED, Poikilocytosis 1+, Anisocytosis 1+, PUBS MCHC 33.6 12/04/16 1708: Lactic Acid 1.9 12/04/16 1410: pH 7.40, pCO2 15 L, pO2 102 H, HCO3 9 L, ABG O2 Sat (Measured) 97.0, P-50 ( Temp Corrected) N, Carboxyhemoglobin 0.3 L, O2 Concentration % 40%, Respiration Rate 20, O2 Delivery Method VENT, Vent Mode AC, Expiratory Pressure 5, Tidal Volume 500, Pressure Support 0, Phlebotomy Draw Site RIGHT A-LINE 12/04/16 1408: Anion Gap 12, Estimated GFR 52 L, BUN/Creatinine Ratio 25.4 H, Lactic Acid 2.3 H, Troponin I < 0.01 Assessment/Plan Assessment/Plan The patient has remained in sinus rhythm. He remains on amiodarone drip. I recommend discontinuing the amiodarone drip. Hopefully sinus rhythm will hold as his sepsis comes under control. I do not recommend anticoagulation for this patient at this time. We will follow him along for his rhythm until he is stable. Continue telemetry? Yes
[2016-12-06 12:00] VITALS: BP 104/62
--- NOTE | 2016-12-06 14:55 | NUR ---
Patient is sedated on a fentanyl gtt currently infuse at 100mcg, receiving IV ativan prn. SAS-3, Can move all extremities just not to command. Soft bilateral wrist restraints in place. Pupils are approx 3mm and brisk. Restless at times. Temp currently 100.5 and pt did receive 1 gram of IV tylenol. Ice packs applied. NSR on tele monitor. or, HR= 90's. SBP: 90-100's and levo gtt was dc at 0645 and BP has remained stable. IV amiodarone was dc per Dr. Hilton order. R. radial a-line was d/c by this RN and a pressure dressing was applied. CVP ranging from 10-14. + pulses with doppler. Remains intubated with a #8 to the right at 22cm, Vent settings currently AC 20/500/40/5. Lungs are rhonchorous and diminished at the bases. Scant yellow secreions noted when suctioning ETT. Mouth care provided. Abodmen is distended with hypoactive bowel sounds. A left sided colostomy is in place with yellow drainage. R. nares NGT in place to LWS with approx 20mls of dark green output. Midline dressing was changed by surgery this morning and remains CDI. BLE appear slightly mottled however extremities are warm to touch and pulses are + with doppler. Dr. Ashford is aware. Edward in place draining approx 20mls/hr of urine- House staff made aware of I+O's. RIJ TLC in place and is WNL. D5NS infusing at 150mls/hr. Plan is for PICC line placement tomorrow. ? need for paracentesis per Dr. Ashford however after consulting with Dr. Adkins plan is to hold off for now. Vitals are currently stable and pt shows no s/s of pain. Family is at the bedside and has been updatd on POC frequently. Will continue to closely monitor patient.
[2016-12-06 16:00] VITALS: BP 96/50
--- NOTE | 2016-12-06 16:00 | NUR ---
Cooling blanket turned on at this time per Dr. Washburn's order. Temp increased to 101.1 rectally. IV Tylenol given at 1130 and is not due at this time. Patient was also placed on a total care ICU bed at this time.
--- NOTE | 2016-12-06 17:04 | PN- Resident CRCU ---
Subjective HPI/CRCU Issues: Current CRCU issues: 1. Perforated sigmoid colon S/P exploratory laparotomy Post op day 3. 2. Intubated and mechanically ventilated 3. Sepsis with lactic acidosis 4. Fevers 5. JUANA 24 Hour Events: I saw and examined the patient today morning, he is not arousable, responding to sternal rub. He is still intubated and mechanically ventilated. Gasping for breath, his abdomen appears distended with minimal drinage from the ostomy bag. Signifcant erythma around the testicles region. Many family members at the bedside, updated about the condition. Objective Vital Signs & I&O Last 8 Hrs of Vitals and I&O: Intake & Output 12/06 1600 Intake Total 1810 Output Total 245 Balance 1565 Intake, IV 1810 Output, 20 Gastric Drainage Output, Stool 25 Output, Urine 200 Patient 106.651 kg Weight Tmax of 102, last shift Tmax of 100.9 ST and SR 88 to 100 in last shift He went into Atrial fibrillation for 5hrs yesterday , started on amio drip and then converted to normal sinus rhythm today morning. So currently off amio drip BP - 98/60mmHg CVP - 3-5 Vent settings - AC 20, VT 500, FiO2 40%, PEEP 5cm of H2O. ABG today morning - pH of 7.30, PaCo2 of 29, PaO2 103, HCO3 of 14. Exam General Appearance: comfortable, sedated, intubated, obese Head: atraumatic, normal appearance Neck: right IJ in place Respiratory: chest non-tender Cardiovascular: regular rate/rhythm Gastrointestinal: minimal bowel sounds Extremities: normal inspection, normal capillary refill Cranial Nerves: normal hearing Skin: well dressed incision on the abdomen with a colostomy bag in place. Weaning Parameters NIF: 42 Minute Volume: 13 Resp rate: 24 Vt: 520 Heart Rate: 107 Weaning Schedule Start Time: 0940 Minute Volume: 13 Resp Rate: 24 Vt: 520 Heart Rate: 107 Central Line Site: right IJ Date In: 12/02/16 Need for Catheter: monitoring CVP Edward Date In: 12/02/16 Still Needed? Yes IV Drips IV Drips: D5 1/2 NS @ 150ml/hr Nutrition Nutrition: NPO Current Medications: Current Medications Sig/Ar Start time Last Medication Dose Route Stop Time Status Admin Acetaminophen 1,000 MG Q6P PRN 12/04 1945 AC 12/06 N/A 1 UNIT IV 1127 Albuterol Sulfate 3 ML EVERY 4 HRS/AWAKE 12/06 1600 AC 12/06 INH 1657 Albuterol Sulfate 3 ML Q4 12/02 2200 DC 12/06 INH 1120 Amiodarone HCl/ 360 MG Q12H 12/05 1000 DC 12/06 Dextrose IV 0612 N/A 1 UNIT Dextrose/Sodium 1,000 ML Q6H 12/05 1830 AC 12/06 Chloride IV 1339 Dextrose/Sodium 1,000 ML Q10H 12/04 1845 DC 12/05 Chloride IV 1401 Fentanyl Citrate 1,000 MCG Q10H 12/04 1300 AC 12/06 Sodium Chloride 250 ML IV 1506 Heparin Sodium 5,000 UNIT Q8 12/02 2200 AC 12/06 (Porcine) SC 1357 Ipratropium [place] 2.5 ML EVERY 4 HRS/AWAKE 12/06 1600 AC 12/06 INH 1657 Ipratropium [place] 2.5 ML Q4 12/02 2200 DC 12/06 INH 1121 Lorazepam 1 MG Q2P PRN 12/03 1330 AC 12/06 IV 1648 Morphine Sulfate 2 MG Q3P PRN 12/04 1300 AC IV Morphine Sulfate 4 MG Q3P PRN 12/02 1800 AC 12/04 IV 1259 Norepinephrine 4 MG Q24H 12/05 1045 DC 12/06 Sodium Chloride 250 ML IV 0052 Ondansetron HCl 4 MG Q6P PRN 12/02 1800 AC IV Pantoprazole Sodium 40 MG DAILY 12/02 2200 AC 12/06 IV 0847 Piperacillin Sod/ 4.5 GM Q8H 12/03 1400 AC 12/06 Tazobactam Sod IV 1357 Sodium Chloride 100 ML Potassium Phosphate 15 mMol ONE ONE 12/06 0815 DC 12/06 Dextrose/Water 250 ML IV 12/06 1218 0949 CXR Findings: IMPRESSION: 1. Endotracheal tube tip 4.5 cm above the fernando. Right jugular central venous line in deep SVC. 2. No significant change in bibasilar volume loss and airspace disease with associated small pleural effusions, left greater than right. CT Scan Findings: Abdomen and pelvis CT IMPRESSION: 1. There is a small to moderate volume of ascites. There is extensive mesenteric edema as well as small pleural effusions and anasarca. Appearance is nonspecific and may all be postoperative in etiology. 2. There is a subtle prominence of proximal small bowel loops. An early jejunal bowel obstruction should be considered and follow-up is advised. Potential etiologies include postsurgical changes in the left lower quadrant or a large left internal hernia. 3. Bowel wall thickening of the ascending and transverse colon consistent with colitis. Patent diverting descending colostomy. Intact appearance to Kirkland's pouch. 4. Left greater than right basilar consolidation is likely compressive atelectasis but pneumonia cannot be excluded in the setting of a postoperative fever. 5. Emphysema. 6. Evidence of prior granulomatous disease with calcified mediastinal and left hilar nodes, left lower lobe calcified nodule and hepatic Impression/Plan Impression/Problem List Impression: Patient is a 89-year-old male with past medical history significant for asthma, hypertension, bilateral inguinal hernia status post repair 30 years ago came to the hospital yesterday with acute abdominal pain. In the ER he was eventually found to have acute perforation of sigmoid colon with peritonitis, underwent emergent surgery with Henny's procedure. He was subsequently sent to ICU for hemodynamic stabilization, further care as patient is at high risk for infection /respiratory failure postextubation. Today he is still intubated and ventilated, slightly arousable and spiking fevers. Problem List: 1. Dyslipidemia 2. Bronchitis 3. Bronchospasm 4. Left inguinal hernia 5. Peritonitis 6. Perforated abdominal viscus 7. COPD (chronic obstructive pulmonary disease) 8. Asthma Pain Ratin Pain Location: intubated and sedated Tomorrow's Labs & Rationales: ICU bundle CBC CXR ABG Plan Respiratory: Intubated and mechanically ventilated * On fentanyl drip and mildly arousable. * ABG in the morning - pH of 7.30, PaCO2 29, PaO2 103, HCO3 14 . * He received a single dose of solucortef 50mg once * CPAP trials History of respiratory infection * Patient had chronic productive cough which was recently evaluated with sputum cultures * It revealed growth of Kluyer ascorbata and klebsiella * He was subsequently started on ciprofloxacin and a steroid taper. * He is still taking prednisolone for bronchospasm before admission. Infectious Diseases: Sepsis secondary to peritonitis * Patient is at high risk for infection post operatively as his peritoneum is filled with fecal matter. * He was given unasyn 3gm Q6 postoperatively along with a single dose of solucortef 50mg. * Blood cultures and urine cultures are sent postoperatively - negative so far. * On Zosyn 4.5 gm Q8hrs * Will follow up with white count and cultures. * He is febrile with Tmax of 100.9 Overnight. * spiking fevers - on IV tylenol and cooling blankets. Cardiovascular: New onset atrial fibrillation in the setting of sepsis * Resolved * Developed A.Fib yesterday and placed on Amiodarone drip * He converted to NSR within 5hrs. * Currently NSR with normal HR * OFF amiodarone drip since morning * Will monitor off anticoagulants for now. Hematology: Daily CBC to monitor for infection Metabolic: Lactic acidosis * Lactic acid level today is trending down - 2.2 to 2.0 * compensation from mechanical ventilation. Alimentary: NPO with NG tube decompensation. Will decide further based on surgery recommendations. Neurological: Intubated and sedated Skin: Colostomy bag in place without any evident drainage, site looks clean. incision site dressed well. DVT/Prophylaxis: sc lovenox Code Status: Full Code
[2016-12-07] VITALS: BP 110/62
[2016-12-07 05:25] LABS: ABSOLUTE BASOPHIL COUNT 0 /CUMM (0.0-0.2); ABSOLUTE EOSINOPHIL COUNT 0 /CUMM (0.0-0.7); ABSOLUTE GRANULOCYTE CT 6.9 /CUMM (1.4-6.5); ABSOLUTE LYMPH COUNT 0.8 /CUMM (1.2-3.4); ABSOLUTE MONOCYTE COUNT 0.3 /CUMM (0.10-0.60); BASOPHIL % 0.1 % (0.0-2.0); EOSINOPHIL % 0.3 % (0-5); GRANULOCYTE % 85.2 % (42.2-75.2); HEMATOCRIT 35.6 % (42-52); MEAN CORPUSCULAR HGB 27.6 PG (27.0-31.0); MEAN CORPUSCULAR HGB CONC 32.8 G/DL (33.0-37.0); MEAN CORPUSCULAR VOLUME 84.3 FL (80.0-94.0); MEAN PLATELET VOLUME 9.1 FL (7.4-10.4); PLATELET COUNT 184 /CUMM (130-400); RBC DISTRIBUTION WIDTH 16.3 % (11.5-14.5); RED BLOOD CELL CT 4.23 /CUMM (4.70-6.10)
--- NOTE | 2016-12-07 06:30 | PN- General Surgery ---
See Addendum Subjective Subjective: Sedated on the vent No issues overnight Objective Vital Signs and I&Os Vital Signs Date Time Temp Pulse Resp B/P Pulse O2 O2 Flow FiO2 Ox Delivery Rate 12/07 0623 40 12/07 0400 96 Ventilator 40% 12/07 0310 40 12/07 0305 99.5 12/07 0159 100.6 12/07 0056 40 12/07 0000 99.7 96 20 110/62 96 Ventilator 40% 12/07 0000 96 Ventilator 40% 12/06 2238 40 12/06 2030 40 12/06 2009 99.5 12/06 2000 97 Ventilator 40% 12/06 1846 99.8 12/06 1718 Ventilator 40% 12/06 1655 40 12/06 1600 101.1 100 26 96/50 96 Ventilator 40% 12/06 1600 96 Ventilator 40% 12/06 1410 40 12/06 1207 100.5 12/06 1200 96 Ventilator 40% 12/06 1200 100.5 96 22 104/62 98 Ventilator 40% 12/06 1127 100.5 12/06 1122 40 12/06 0822 40 12/06 0800 98.7 92 24 102/64 99 Ventilator 40% 12/06 0800 98 Ventilator 40% Intake & Output 12/07 0800 12/07 0000 12/06 1600 12/06 0800 12/06 0000 12/05 1600 Intake Total 1554 1810 1793 1382 3808 Output Total 400 245 510 285 285 Balance 1154 1565 1283 1097 3523 Intake, IV 1554 1810 1793 1382 3808 Intake, Oral 0 Output, 180 20 300 75 75 Gastric Drainage Output, Stool 25 10 10 10 Output, Urine 220 200 200 200 200 Patient 235 lb Weight Physical Exam: Tmax 100.6 Remains in sinus rhythm after converting from a fib Gen.: Patient remains intubated and lightly sedated. He winces with painful stimuli. Cardiac: rrr Pulmonary: coarse breath sounds bilaterally anteriorly at bases Abdomen: Remains softly distended. Midline incision is intact with singh. The inferior packing was removed. The superior packing was slightly pulled back and removed as there was nothing remaining Small amount of purulent fluid was noted in each area. No bowel sounds were heard. Stoma is pink and edematous. No air or output from the ostomy appliance - serous drainage only. Extremities: Bilateral upper and lower urinary peripheral edema as well as scrotal edema Assessment/Plan Assessment/Plan Patient is an 89-year-old male with past medical history significant for hypertension, hyperlipidemia, and asthma, who is now postoperative day #4 status post exploratory laparotomy with Kirkland's procedure for perforated viscus. Intraoperatively he was found to have gross fecal contamination due to the perforation. Postoperative course was complicated by rapid A. fib, prompting the need for an amiodarone drip. At this time, he remains intubated and sedated Plan: -Still awaiting bowel function. Patient remains intubated and will be kept nothing by mouth with an NG tube. -IV Zosyn as per ID. -Protonix for GI prophylaxis. -DVT prophylaxis with subcutaneous heparin and Alps. -Continue medical management per critical care team. -Will discuss with attending. Core Measures/Miscellaneous Edward Catheter Date In: 12/02/16 Venous Thromboembolism VTE Risk Factors: Acute medical illness, Age > 40, Surgery VTE Contraindications: No Contraindications VTE Prophylaxis Ordered Inpt Mech & Pharm VTE Diagnosis: No Beta Abelardo Is Beta Abelardo a Home Med? No Antibiotics Is Patient on Antibiotics? Yes If Yes: infection
[2016-12-07 08:00] VITALS: BP 110/70
--- NOTE | 2016-12-07 08:12 | RADIOLOGY REPORT ---
EXAMINATION: XR PORTABLE CHEST CLINICAL INFORMATION: Monitor position of endotracheal tube. COMPARISON: CXR from 12/06/2016 TECHNIQUE: Portable view of the chest was obtained. FINDINGS: Endotracheal tube is positioned 5.5 cm above the fernando. The tip of the right internal jugular central line is at the junction of the superior vena cava and right atrium. The enteric tube is difficult to visualize but appears to course below the diaphragm and into the stomach. Cardiac silhouette and central pulmonary vessels remain enlarged. Persistent small pleural effusions and hazy bibasilar opacities, likely atelectasis subjacent to the effusions. No pneumothorax. IMPRESSION: 1. Endotracheal tube is located 5.5 cm above the fernando. 2. Cardiomegaly, pulmonary vascular congestion, small pleural effusions and bibasilar opacities (likely atelectasis subjacent to the effusions). No acute findings within the chest compared to 12/06/2016.
--- NOTE | 2016-12-07 09:28 | PN- CRCU ---
Subjective HPI/Critical Care Issues: pt seen and examined on mechanical ventilation sedated on fentantyl and prn ativan tmax 100.6 s/p iv tylenol ros unobtainable secondary to sedation Objective Current Medications: Current Medications Sig/Ar Start time Last Medication Dose Route Stop Time Status Admin Acetaminophen 1,000 MG .STK-MED ONE 12/06 1837 DC IV 12/06 1839 Acetaminophen 1,000 MG Q6P PRN 12/04 1945 AC 12/07 N/A 1 UNIT IV 0159 Albuterol Sulfate 3 ML EVERY 4 HRS/AWAKE 12/06 1600 AC 12/07 INH 0830 Albuterol Sulfate 3 ML Q4 12/02 2200 DC 12/06 INH 1120 Dextrose/Sodium 1,000 ML Q13H 12/07 0815 AC Chloride IV Dextrose/Sodium 1,000 ML Q6H 12/05 1830 DC 12/07 Chloride IV 0553 Fentanyl Citrate 1,000 MCG Q10H 12/04 1300 AC 12/07 Sodium Chloride 250 ML IV 0021 Heparin Sodium 5,000 UNIT Q8 12/02 2200 AC 12/07 (Porcine) SC 0522 Ipratropium [place] 2.5 ML EVERY 4 HRS/AWAKE 12/06 1600 AC 12/07 INH 0842 Ipratropium [place] 2.5 ML Q4 12/02 2200 DC 12/06 INH 1121 Lorazepam 1 MG Q2P PRN 12/03 1330 AC 12/07 IV 0837 Morphine Sulfate 2 MG Q3P PRN 12/04 1300 AC IV Morphine Sulfate 4 MG Q3P PRN 12/02 1800 AC 12/04 IV 1259 Norepinephrine 4 MG Q24H 12/05 1045 DC 12/06 Sodium Chloride 250 ML IV 0052 Ondansetron HCl 4 MG Q6P PRN 12/02 1800 AC IV Pantoprazole Sodium 40 MG DAILY 12/02 2200 AC 12/06 IV 0847 Piperacillin Sod/ 4.5 GM Q8H 12/03 1400 AC 12/07 Tazobactam Sod IV 0522 Sodium Chloride 100 ML Potassium Phosphate 15 mMol ONE ONE 12/06 0815 DC 12/06 Dextrose/Water 250 ML IV 12/06 1218 0949 Vital Signs & I&O Last 24 Hrs of Vitals and I&O: Vital Signs Date Time Temp Pulse Resp B/P Pulse O2 O2 Flow FiO2 Ox Delivery Rate 12/07 0842 40 12/07 0623 40 12/07 0400 96 Ventilator 40% 12/07 0310 40 12/07 0305 99.5 12/07 0159 100.6 12/07 0056 40 12/07 0000 99.7 96 20 110/62 96 Ventilator 40% 12/07 0000 96 Ventilator 40% 12/06 2238 40 12/06 2030 40 12/06 2009 99.5 12/06 2000 97 Ventilator 40% 12/06 1846 99.8 12/06 1718 Ventilator 40% 12/06 1655 40 12/06 1600 101.1 100 26 96/50 96 Ventilator 40% 12/06 1600 96 Ventilator 40% 12/06 1410 40 12/06 1207 100.5 12/06 1200 96 Ventilator 40% 12/06 1200 100.5 96 22 104/62 98 Ventilator 40% 12/06 1127 100.5 12/06 1122 40 Intake & Output 12/07 1600 12/07 0800 12/07 0000 Intake Total 1429 1554 Output Total 450 400 Balance 979 1154 Intake, IV 1429 1554 Intake, Oral 0 Output, 50 180 Gastric Drainage Output, Urine 400 220 Exam Other Physical Findings: gen intubated heent ett cvs s1, s2 lungs transmitted abd diminished bs+ ext no edema Results Last 24 Hrs of Lab Results: Laboratory Tests 12/07/16 0850: Lactic Acid Pending 12/07/16 0600: pH 7.29 *L, pCO2 33 L, pO2 104 H, HCO3 16 L, ABG O2 Sat (Measured) 97.0, P-50 (Temp Corrected) N, Carboxyhemoglobin 0.6 L, O2 Concentration % .40, Respiration Rate 20, O2 Delivery Method VENT, Vent Mode A/C, Expiratory Pressure 5, Tidal Volume 500, Phlebotomy Draw Site LEFT RADIAL 12/07/16 5667: Anion Gap 13, Estimated GFR 44 L, Glucose 132 H, Calcium 6.9 L, Phosphorus 3.4, Magnesium 2.1, Total Bilirubin 1.3, AST 40, ALT 35, Albumin 1.8 L, CBC w Diff MAN DIFF ORDERED, RBC 4.23 L, MCV 84.3, MCH 27.6, RDW 16.3 H, MPV 9.1, Gran % 85.2 H, Lymphocytes % 10.5 L, Monocytes % 3.9, Eosinophils % 0.3, Basophils % 0.1, Absolute Granulocytes 6.9 H, Segmented Neutrophils 74, Band Neutrophils 8 H, Absolute Lymphocytes 0.8 L, Lymphocytes 11 L, Monocytes 7, Absolute Monocytes 0.3, Absolute Eosinophils 0, Absolute Basophils 0, Platelet Estimate ADEQUATE, Hypochromic-Microcytic 1+, Poikilocytosis 2+, Ovalocytes 1+, Hardwick Cells 1+, PUBS MCHC 32.8 L, Fld Total RBCs Counted 100 Impression/Plan Impression/Plan Impression/Plan: Impression 89 year old man * 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 for acute abdominal perforation * Respiratory failure with increased bibasilar opacities, maybe fluid overload * 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 * lactic acidosis improved Plan Respiratory - Monitor chest x-rays and ABGs - TRC/Nebs ID - Zosyn, ID f/u, cx monitoring, fever/wbc monitoring CVS - monitor hemodynamics - monitor CVP - no evidence of VTE Heme - monitor cbc, coags Metabolic - ins/outs, sis, nephrology input early on, if creatinine does not improve will call nephrology Alimentary - NPO, per surgery - change to D5 1/2 NS Neuro - sedation as necessary for comfort DVT prophylaxis at all times TTS 40 min Code Status: Full Code
--- NOTE | 2016-12-07 10:13 | PN- Resident CRCU ---
Subjective HPI/CRCU Issues: Current CRCU issues: 1. Perforated sigmoid colon S/P exploratory laparotomy Post op day 3. 2. Intubated and mechanically ventilated 3. Sepsis with lactic acidosis 4. Fevers 5. JUANA 24 Hour Events: I saw and examined the patient today morning, he is not arousable, responding to sternal rub. He is still intubated and mechanically ventilated. Gasping for breath, his abdomen appears distended. good amount of drainage form ostomy bag. Objective Vital Signs & I&O Last 8 Hrs of Vitals and I&O: Intake & Output 12/07 1600 Intake Total Output Total Balance Patient 107.275 kg Weight VS Febrile with Tmax of 100.9 (received several doses of IV tylenol) In NSR 82-92bpm BP - 96-107/50-70mmHg SAS score of 3. ON ventilator with settings of AC -20, VT 500, FiO2 40%, PEEP of 5. D51/2NS @ 75ml/hr Colostomy bag output of 300ml Exam General Appearance: no apparent distress, sedated, intubated Head: atraumatic, normal appearance Respiratory: quiet respiration, transmitted sounds., gasping for breath Cardiovascular: regular rate/rhythm, normal peripheral pulses Gastrointestinal: soft, non-tender, minimal bowel sounds present. Extremities: normal inspection, normal capillary refill Cranial Nerves: normal hearing Weaning Parameters NIF: 42 Minute Volume: 13 Resp rate: 24 Vt: 520 Heart Rate: 107 Weaning Schedule Start Time: 0940 Minute Volume: 13 Resp Rate: 24 Vt: 520 Heart Rate: 107 IV Drips IV Drips: D51/2NS @75ml/hr Nutrition Nutrition: NPO Current Medications: Current Medications Sig/Ar Start time Last Medication Dose Route Stop Time Status Admin Acetaminophen 1,000 MG .STK-MED ONE 12/07 0157 DC IV 12/07 0158 Acetaminophen 1,000 MG .STK-MED ONE 12/06 1838 DC IV 12/06 1839 Acetaminophen 1,000 MG Q6P PRN 12/04 1945 AC 12/07 N/A 1 UNIT IV 1152 Albuterol Sulfate 3 ML EVERY 4 HRS/AWAKE 12/06 1600 AC 12/07 INH 1130 Dextrose/Sodium 1,000 ML Q13H 12/07 0915 AC 12/07 Chloride IV 1007 Dextrose/Sodium 1,000 ML Q6H 12/05 1830 DC 12/07 Chloride IV 0553 Fentanyl Citrate 1,000 MCG Q10H 12/04 1300 AC 12/07 Sodium Chloride 250 ML IV 0900 Furosemide 40 MG ONCE ONE 12/07 0945 DC 12/07 IV 12/07 0946 1007 Heparin Sodium 5,000 UNIT Q8 12/02 2200 AC 12/07 (Porcine) SC 1418 Ipratropium [place] 2.5 ML EVERY 4 HRS/AWAKE 12/06 1600 AC 12/07 INH 1130 Lorazepam 1 MG Q2P PRN 12/03 1330 AC 12/07 IV 0837 Morphine Sulfate 2 MG Q3P PRN 12/04 1300 AC 12/07 IV 1115 Morphine Sulfate 4 MG Q3P PRN 12/02 1800 AC 12/04 IV 1259 Ondansetron HCl 4 MG Q6P PRN 12/02 1800 AC IV Pantoprazole Sodium 40 MG DAILY 12/02 220 AC 12/07 IV 1007 Piperacillin Sod/ 4.5 GM Q8H 12/03 1400 AC 12/07 Tazobactam Sod IV 1418 Sodium Chloride 100 ML Impression/Plan Impression/Problem List Impression: Patient is a 89-year-old male with past medical history significant for asthma, hypertension, bilateral inguinal hernia status post repair 30 years ago came to the hospital yesterday with acute abdominal pain. In the ER he was eventually found to have acute perforation of sigmoid colon with peritonitis, underwent emergent surgery with Henny's procedure. He was subsequently sent to ICU for hemodynamic stabilization, further care as patient is at high risk for infection /respiratory failure postextubation. Today he is still intubated and ventilated, slightly arousable and spiking fevers. Problem List: 1. ASTHMA 2. Perforated abdominal viscus 3. Peritonitis 4. COPD (chronic obstructive pulmonary disease) 5. Left inguinal hernia 6. Bronchospasm 7. Dyslipidemia Pain Ratin Tomorrow's Labs & Rationales: icu bundle cbc cxr abg Plan Respiratory: Intubated and mechanically ventilated * On fentanyl drip and mildly arousable. * ABG in the morning - pH of 7.29, PaCO2 33, PaO2 103, HCO3 16. * CPAP trials History of respiratory infection * Patient had chronic productive cough which was recently evaluated with sputum cultures * It revealed growth of Kluyer ascorbata and klebsiella * He was subsequently started on ciprofloxacin and a steroid taper. * He is still taking prednisolone for bronchospasm before admission. Infectious Diseases: Suspected Sepsis secondary to peritonitis * Patient is at high risk for infection post operatively as his peritoneum is filled with fecal matter. * He was given unasyn 3gm Q6 postoperatively along with a single dose of solucortef 50mg. * Blood cultures and urine cultures are sent postoperatively - negative so far. * On Zosyn 4.5 gm Q8hrs * Will follow up with white count and cultures. * He is febrile with Tmax of 100.9. * spiking fevers - on IV tylenol and cooling blankets. Doppler ultrasound to right upper extremity * awaiting results Cardiovascular: New onset atrial fibrillation in the setting of sepsis * Resolved * Developed A.Fib and placed on Amiodarone drip * He converted to NSR within 5hrs. * OFF amiodarone drip and Currently NSR with normal HR * Will monitor off anticoagulants for now. Fluid overloaded * Single dose of IV lasix is given * I/O of 1400/1050 today * sodium is increasing started on D51/2NS @ 75ml/hr Hematology: Daily CBC to monitor for infection Metabolic: * Lactic acid level today is 1.6. * compensation from mechanical ventilation. Alimentary: * NPO with NG tube decompensation. * Will decide further based on surgery recommendations. Neurological: Intubated and sedated Skin: * Colostomy bag in place with 300ml drainage. * incision site dressed well. DVT/Prophylaxis: sc lovenox Code Status: Full Code Code Status: Full Code
--- NOTE | 2016-12-07 10:27 | PN- Infect Dx ---
Subjective Subjective: MAXIMUM TEMPERATURE 101.1. He has been sedated. Objective Last 24 Hrs of Vital Signs/I&O Vital Signs Date Time Temp Pulse Resp B/P Pulse O2 O2 Flow FiO2 Ox Delivery Rate 12/07 0842 40 12/07 0800 99.2 87 22 110/70 97 Ventilator 40% 12/07 0800 96 Ventilator 40% 12/07 0623 40 12/07 0400 96 Ventilator 40% 12/07 0310 40 12/07 0305 99.5 12/07 0159 100.6 12/07 0056 40 12/07 0000 99.7 96 20 110/62 96 Ventilator 40% 12/07 0000 96 Ventilator 40% 12/06 2238 40 12/06 2030 40 12/06 2009 99.5 12/06 2000 97 Ventilator 40% 12/06 1846 99.8 12/06 1718 Ventilator 40% 12/06 1655 40 12/06 1600 101.1 100 26 96/50 96 Ventilator 40% 12/06 1600 96 Ventilator 40% 12/06 1410 40 12/06 1207 100.5 12/06 1200 96 Ventilator 40% 12/06 1200 100.5 96 22 104/62 98 Ventilator 40% 12/06 1127 100.5 12/06 1122 40 Intake & Output 12/07 1600 12/07 0800 12/07 0000 Intake Total 1429 1554 Output Total 450 400 Balance 979 1154 Intake, IV 1429 1554 Intake, Oral 0 Output, 50 180 Gastric Drainage Output, Urine 400 220 Patient 237 lb Weight Physical Exam Other Physical Findings: He is unresponsive on sedation on the ventilator Neck right IJ with no inflammation at the site Lungs bilateral rhonchi Heart regular rhythm with no murmur Abdomen is distended, tender on palpation, with positive bowel sounds; incision clean, with no erythema or drainage; colostomy with liquid brown output Extremities 1+ edema both lower extremities; right upper extremity edema compared to the left Edward catheter remains in place Results Last 24 Hours of Lab Results: Laboratory Tests 12/07 12/07 12/07 0850 0600 0455 Blood Gas pH (7.35 - 7.45 PH) 7.29 *L pCO2 (35 - 45 TORR) 33 L pO2 (80 - 100 TORR) 104 H HCO3 (21 - 28 MEQ/L) 16 L ABG O2 Sat (Measured) (>96.0 %) 97.0 P-50 (Temp Corrected) N Carboxyhemoglobin (1.5 - 5.0 %) 0.6 L O2 Concentration % .40 Respiration Rate (BPM) 20 O2 Delivery Method VENT Vent Mode A/C Expiratory Pressure (CMH2O/P) 5 Tidal Volume (CC) 500 Chemistry Sodium (137 - 145 mmol/L) 147 H Potassium (3.5 - 5.1 mmol/L) 3.9 Chloride (98 - 107 mmol/L) 116 H Carbon Dioxide (22 - 30 mmol/L) 18 L Anion Gap (5 - 16) 13 BUN (9 - 20 mg/dL) 45 H Creatinine (0.7 - 1.2 mg/dL) 1.5 H Estimated GFR (>60 ml/min) 44 L Glucose (65 - 99 mg/dL) 132 H Lactic Acid (0.7 - 2.1 mmol/L) 1.6 Calcium (8.4 - 10.2 mg/dL) 6.9 L Phosphorus (2.5 - 4.5 mg/dL) 3.4 Magnesium (1.6 - 2.3 mg/dL) 2.1 Total Bilirubin (0.2 - 1.3 mg/dL) 1.3 AST (17 - 59 U/L) 40 ALT (21 - 72 U/L) 35 Albumin (3.5 - 5.0 g/dL) 1.8 L Hematology CBC w Diff MAN DIFF ORDERED WBC (4.8 - 10.8 /CUMM) 8.0 RBC (4.70 - 6.10 /CUMM) 4.23 L Hgb (14.0 - 18.0 G/DL) 11.7 L Hct (42 - 52 %) 35.6 L MCV (80.0 - 94.0 FL) 84.3 MCH (27.0 - 31.0 PG) 27.6 RDW (11.5 - 14.5 %) 16.3 H Plt Count (130 - 400 /CUMM) 184 MPV (7.4 - 10.4 FL) 9.1 Gran % (42.2 - 75.2 %) 85.2 H Lymphocytes % (20.5 - 51.1 %) 10.5 L Monocytes % (1.7 - 9.3 %) 3.9 Eosinophils % (0 - 5 %) 0.3 Basophils % (0.0 - 2.0 %) 0.1 Absolute Granulocytes (1.4 - 6.5 /CUMM) 6.9 H Segmented Neutrophils (42.2 - 75.2 %) 74 Band Neutrophils (0.0 - 5.0 %) 8 H Absolute Lymphocytes (1.2 - 3.4 /CUMM) 0.8 L Lymphocytes (20.5 - 51.1 %) 11 L Monocytes (1.7 - 9.3 %) 7 Absolute Monocytes (0.10 - 0.60 /CUMM) 0.3 Absolute Eosinophils (0.0 - 0.7 /CUMM) 0 Absolute Basophils (0.0 - 0.2 /CUMM) 0 Platelet Estimate (ADEQUATE) ADEQUATE Hypochromic-Microcytic 1+ Poikilocytosis 2+ Ovalocytes 1+ Akosua Cells 1+ PUBS MCHC (33.0 - 37.0 G/DL) 32.8 L Miscellaneous Phlebotomy Draw Site LEFT RADIAL Other Body Source Fld Total RBCs Counted (%) 100 Last 24 Hours of Adrian Results: Blood cultures 2 December 04 remain negative Urine culture December 05 negative Recent Imaging Studies: Chest x-ray December 07 bibasilar densities, unchanged from previous films Assessment/Plan Impression: Stable with persistent, though lower grade, fevers and with white blood cell count now normal, with decreased bands, and with blood pressure remaining stable on Zosyn now Day 5 of treatment for peritonitis secondary to a perforated viscus status post Kirkland's procedure 5 days ago. His recent CT scan did not reveal any complications from his recent surgery and recent cultures are negative for any new infection. His creatinine, though elevated, has been stable for several days. He does have mild right upper extremity edema and, with the right IJ in place, need to rule out a DVT. Suggestion: 1. Doppler of the right upper extremity 2. Would pursue placement of a PICC so that the right IJ can be removed 3. Continue Zosyn
--- NOTE | 2016-12-07 10:40 | PN- Cardiology ---
Subjective Subjective: The patient has not had any further arrhythmias. He seems more stable from a medical and surgical standpoint at this time. Objective Vital Signs and I&Os Vital Signs Date Time Temp Pulse Resp B/P Pulse O2 O2 Flow FiO2 Ox Delivery Rate 12/07 0842 40 12/07 0800 99.2 87 22 110/70 97 Ventilator 40% 12/07 0800 96 Ventilator 40% 12/07 0623 40 12/07 0400 96 Ventilator 40% 12/07 0310 40 12/07 0305 99.5 12/07 0159 100.6 12/07 0056 40 12/07 0000 99.7 96 20 110/62 96 Ventilator 40% 12/07 0000 96 Ventilator 40% 12/06 2238 40 12/06 2030 40 12/06 2009 99.5 12/06 2000 97 Ventilator 40% 12/06 1846 99.8 12/06 1718 Ventilator 40% 12/06 1655 40 12/06 1600 101.1 100 26 96/50 96 Ventilator 40% 12/06 1600 96 Ventilator 40% 12/06 1410 40 12/06 1207 100.5 12/06 1200 96 Ventilator 40% 12/06 1200 100.5 96 22 104/62 98 Ventilator 40% 12/06 1127 100.5 12/06 1122 40 Intake & Output 12/07 1600 12/07 0800 12/07 0000 12/06 1600 12/06 0800 12/06 0000 Intake Total 1429 1554 1810 1793 1382 Output Total 450 400 245 510 285 Balance 979 1154 1565 1283 1097 Intake, IV 1429 1554 1810 1793 1382 Intake, Oral 0 Output, 50 180 20 300 75 Gastric Drainage Output, Stool 25 10 10 Output, Urine 400 220 200 200 200 Patient 237 lb 235 lb Weight Physical Exam: He remains intubated and sedated Heart reveals regular rhythm and no murmurs Current Medications: Current Medications Sig/Ar Start time Last Medication Dose Route Stop Time Status Admin Acetaminophen 1,000 MG .STK-MED ONE 12/07 0157 DC IV 12/07 0158 Acetaminophen 1,000 MG .STK-MED ONE 12/06 183 DC IV 12/06 183 Acetaminophen 1,000 MG Q6P PRN 12/04 1945 AC 12/07 N/A 1 UNIT IV 015 Albuterol Sulfate 3 ML EVERY 4 HRS/AWAKE 12/06 1600 AC 12/07 INH 0830 Albuterol Sulfate 3 ML Q4 12/02 2200 DC 12/06 INH 1120 Dextrose/Sodium 1,000 ML Q13H 12/07 0915 AC 12/07 Chloride IV 1007 Dextrose/Sodium 1,000 ML Q6H 12/05 1830 DC 12/07 Chloride IV 0553 Fentanyl Citrate 1,000 MCG Q10H 12/04 1300 AC 12/07 Sodium Chloride 250 ML IV 0900 Furosemide 40 MG ONCE ONE 12/07 0945 DC 12/07 IV 12/07 0946 1007 Heparin Sodium 5,000 UNIT Q8 12/02 2200 AC 12/07 (Porcine) SC 0522 Ipratropium Engadine 2.5 ML EVERY 4 HRS/AWAKE 12/06 1600 AC 12/07 INH 0842 Ipratropium Engadine 2.5 ML Q4 12/02 2200 DC 12/06 INH 1121 Lorazepam 1 MG Q2P PRN 12/03 1330 AC 12/07 IV 0837 Morphine Sulfate 2 MG Q3P PRN 12/04 1300 AC IV Morphine Sulfate 4 MG Q3P PRN 12/02 1800 AC 12/04 IV 1259 Norepinephrine 4 MG Q24H 12/05 1045 DC 12/06 Sodium Chloride 250 ML IV 0052 Ondansetron HCl 4 MG Q6P PRN 12/02 1800 AC IV Pantoprazole Sodium 40 MG DAILY 12/02 220 AC 12/07 IV 1007 Piperacillin Sod/ 4.5 GM Q8H 12/03 1400 AC 12/07 Tazobactam Sod IV 0522 Sodium Chloride 100 ML Potassium Phosphate 15 mMol ONE ONE 12/06 08 DC 12/06 Dextrose/Water 250 ML IV 12/06 1218 0949 Results Last 48 Hrs of Labs/Mics: Laboratory Tests 12/07/16 0850: Lactic Acid 1.6 12/07/16 0600: pH 7.29 *L, pCO2 33 L, pO2 104 H, HCO3 16 L, ABG O2 Sat (Measured) 97.0, P-50 (Temp Corrected) N, Carboxyhemoglobin 0.6 L, O2 Concentration % .40, Respiration Rate 20, O2 Delivery Method VENT, Vent Mode A/C, Expiratory Pressure 5, Tidal Volume 500, Phlebotomy Draw Site LEFT RADIAL 12/07/16 0451: Anion Gap 13, Estimated GFR 44 L, Glucose 132 H, Calcium 6.9 L, Phosphorus 3.4, Magnesium 2.1, Total Bilirubin 1.3, AST 40, ALT 35, Albumin 1.8 L, CBC w Diff MAN DIFF ORDERED, RBC 4.23 L, MCV 84.3, MCH 27.6, RDW 16.3 H, MPV 9.1, Gran % 85.2 H, Lymphocytes % 10.5 L, Monocytes % 3.9, Eosinophils % 0.3, Basophils % 0.1, Absolute Granulocytes 6.9 H, Segmented Neutrophils 74, Band Neutrophils 8 H, Absolute Lymphocytes 0.8 L, Lymphocytes 11 L, Monocytes 7, Absolute Monocytes 0.3, Absolute Eosinophils 0, Absolute Basophils 0, Platelet Estimate ADEQUATE, Hypochromic-Microcytic 1+, Poikilocytosis 2+, Ovalocytes 1+, Akosua Cells 1+, PUBS MCHC 32.8 L, Fld Total RBCs Counted 100 12/06/16 0805: Lactic Acid 2.0 12/06/16 0505: pH 7.30 *L, pCO2 29 L, pO2 103 H, HCO3 14 L, ABG O2 Sat (Measured) 97.0, P-50 (Temp Corrected) Y, Carboxyhemoglobin 0.1 L, O2 Concentration % 40%, Temperature 98.1, Respiration Rate 20, O2 Delivery Method ESPRIT, Vent Mode AC, Expiratory Pressure 5, Tidal Volume 500, Phlebotomy Draw Site [place] 12/06/16 0439: Anion Gap 12, Estimated GFR 44 L, Glucose 189 H, Calcium 6.6 L, Phosphorus 3.4, Magnesium 2.0, Total Bilirubin 1.1, AST 31, ALT 29, Albumin 1.8 L, CBC w Diff MAN DIFF ORDERED, RBC 4.62 L, MCV 83.8, MCH 28.5, RDW 16.0 H, MPV 10.1, Gran % 71.4, Lymphocytes % 9.6 L, Monocytes % 18.9 H, Eosinophils % 0.1, Basophils % 0 L, Absolute Granulocytes 5.5, Segmented Neutrophils 66, Band Neutrophils 11 H, Absolute Lymphocytes 0.7 L, Lymphocytes 18 L, Monocytes 4, Absolute Monocytes 1.5 H, Absolute Eosinophils 0, Absolute Basophils 0, Metamyelocytes 1, Anisocytosis 1+, PUBS MCHC 34.0, Fld Total RBCs Counted 100 12/05/165: Lactic Acid 2.2 H 12/05/16 1820: Lactic Acid Cancelled 12/05/16 1658: Lactic Acid 2.6 H 12/05/16 1338: Lactic Acid 2.4 H Recent Imaging Studies: PATIENT: ROD ALFORD PRESENT AGE: 89 PATIENT ACCOUNT NO: [id number] : [birth year] LOCATION: [facility] ORDERING PHYSICIAN: DAMEON KHAN MD SERVICE DATE: 12/07/16 EXAM TYPE: RAD - XRY-PORTABLE CHEST XRAY EXAMINATION: XR PORTABLE CHEST CLINICAL INFORMATION: Monitor position of endotracheal tube. COMPARISON: CXR from 12/06/2016 TECHNIQUE: Portable view of the chest was obtained. FINDINGS: Endotracheal tube is positioned 5.5 cm above the fernando. The tip of the right internal jugular central line is at the junction of the superior vena cava and right atrium. The enteric tube is difficult to visualize but appears to course below the diaphragm and into the stomach. Cardiac silhouette and central pulmonary vessels remain enlarged. Persistent small pleural effusions and hazy bibasilar opacities, likely atelectasis subjacent to the effusions. No pneumothorax. IMPRESSION: 1. Endotracheal tube is located 5.5 cm above the fernando. 2. Cardiomegaly, pulmonary vascular congestion, small pleural effusions and bibasilar opacities (likely atelectasis subjacent to the effusions). No acute findings within the chest compared to 12/06/2016. DICTATED BY: KEIRY GODINEZ MD DATE/TIME DICTATED:12/07/16804 [employer] DATE/TIME TRANSCRIBED:12/07/16804 CONFIDENTIAL, DO NOT COPY WITHOUT APPROPRIATE AUTHORIZATION. <Electronically signed in Other Vendor System> SIGNED BY: KEIRY GODINEZ MD 12/07/16811 Assessment/Plan Assessment/Plan The patient has remained in sinus rhythm. Amiodarone has been discontinued. His chest x-ray is suggestive of vascular congestion. He did receive a lot of IV fluids when he was hypotensive. He has been given one dose of IV Lasix today. I recommend continued monitoring while he is in ICU. Diuretics are appropriate to treat volume overload. Please call if any further cardiology input is needed. Continue telemetry? Yes
--- NOTE | 2016-12-07 12:42 | NUR ---
@0800-PT SEDATED ON FENT GTT AT 137.5MCG. PT OPENS EYES SPONT. NOT FOLLOWING COMMANDS, ABLE TO MOVE ALL EXTREMITIES. PUPILS EQUAL AND REACTIVE. BILAT WRIST RESTRAINTS CONT TO SAFETY OF LINES. PT MEDICATED WITH PRN ATIVAN FOR RR 24 THIS AM. CONT ON VENT-NO CHANGE TO SETTINGS. NEBS Q4HRS PER RT. MIN SECRETIONS NOTED. MOUTH CARE PROVIDED. NSR HR 80S. BP STABLE. CVP 11 THIS AM. 300ML OF DARK GREEN SEMILIQ DRAINED FROM COLOSTOMY THIS AM. ABD DISTENDED, HYPOACTIVE BS. NGT NOTED TO R NARES AT 55CM. TO LWS. GREEN OUTPUT NOTED. MIDLINE SURG ABD INCISION-DSG CDI. BUE +2 EDEMA AND +3 BLE EDEMA. DOPPLER PEDAL PULSES. +2 SCROTAL EDEMA AND ELEVATED. IVF CHANGED TO D51/2NS INFUSING AT 75ML/HR. RIJ TLC NOTED. PT MEDICATED WITH IV LASIX 40MG X 1 DOSE. CONT TO MONITOR, FAMILY AT BEDSIDE AND UPDATED.
--- NOTE | 2016-12-07 14:41 | NUR ---
@1200-FEBRILE 101.3. COOLING BLANKET IN PLACE, MEDICATED WITH PRN TYELENOL. REPOSITIONED WITH PILLOWS. MOUTH CARE PROVIDED. ACCUCHECK 136. CVP 8 COMPARED TO CVP 11 THIS AM. FENT GTT NOW INFUSING AT 150MCG AND PT ALSO MEDICATED WITH IV PRN MORPHINE FOR FLACC 3-4. CONT TO MONITOR CLOSELY. FAMILY REMAINS AT BEDSIDE.
[2016-12-07 16:00] VITALS: BP 102/60
--- NOTE | 2016-12-07 17:46 | NUR ---
@1600-PT RESTLESS. FLACC 4-5. MEDICATED WITH PRN MORPHINE. TEMP 101-PLACED BACK ON COOLING BLANKET. NOT DUE FOR TYELENOL UNTIL 1800. ICE PACK PLACED POSTERIOR NECK. CONT ON VENT-NO CHANGE TO SETTINGS. NSR HR 80S. BP STABLE. CVP 8. NORMAL BOWEL SOUNDS AUSCULTATED WITH GREEN STOOL NOTED IN COLOSTOMY. NGT REMAINS TO LWS. ANN WITH ADEQUATE OUTPUT NOTED. EDEMA CONT TO SAQIB GONCALVES DOPPLER BEING DONE AT BEDSIDE AT THIS TIME. BLE EDEMA-ELEVATED ON PILLOWS AND SCROTAL EDEMA NOTED AND ELEVATED. DSG TO MIDLINE INCISION CHANGED BY DR IRVING AT BEDSIDE AT THIS TIME. WILL CONT TO MONITOR. FAMILY AT BEDSIDE.
--- NOTE | 2016-12-07 18:28 | NUR ---
@1800-TEMP 101.5-IV TYELENOL INFUSING. COOLING BLANKET IN PLACE. FAMILY AT BEDSIDE. PT NOTED TO HAVE MULT PVCS, APPROX EVERY 5TH BEAT. REPORTED TO HOUSESTAFF THAT K+3.9 THIS AM AND THEN DIURESED WITH 40MG OF IV LASIX. PT MEDICATED WITH KCL 20MEQ BOLUS AND REPEAT LABS AT 8PM. CONT TO MONITOR.
[2016-12-08] VITALS: BP 124/72
--- NOTE | 2016-12-08 05:26 | PN- General Surgery ---
See Addendum Subjective Subjective: Patient agitated overnight, fentanyl gtt increased. Remains on vent. Cooling blanket applied for tmax 102.1 Objective Vital Signs and I&Os Vital Signs Date Time Temp Pulse Resp B/P Pulse O2 O2 Flow FiO2 Ox Delivery Rate 12/08 0400 98 Ventilator 40% 12/08 0319 40 12/08 0025 40 12/08 0000 100.2 94 23 124/72 97 Ventilator 40% 12/08 0000 97 Ventilator 40% 12/07 2253 40 12/07 2000 95 Ventilator 40% 12/07 1945 40 12/07 1911 101.1 12/07 1812 101.5 12/07 1630 40 12/07 1600 99.1 90 22 102/60 95 Ventilator 40% 12/07 1600 97 Ventilator 40% 12/07 1430 40 12/07 1300 100.7 12/07 1200 94 Ventilator 40% 12/07 1152 101.2 12/07 1125 40 12/07 0842 40 12/07 0800 99.2 87 22 110/70 97 Ventilator 40% 12/07 0800 96 Ventilator 40% 12/07 0623 40 Intake & Output 12/08 0800 12/08 0000 12/07 1600 12/07 0800 12/07 0000 12/06 1600 Intake Total 1203 1233 1429 1554 1810 Output Total 925 1750 450 400 245 Balance 278 -038 574 7055 1565 Intake, IV 1203 1233 1429 1554 1810 Intake, Oral 0 0 Output, 50 50 50 180 20 Gastric Drainage Output, Stool 100 400 25 Output, Urine 775 1300 400 220 200 Patient 237 lb 235 lb Weight Physical Exam: Tmax 102.1 Remains in sinus rhythm after converting from a fib Gen.: Patient remains intubated and lightly sedated. He winces with painful stimuli. Cardiac: rrr Pulmonary: coarse breath sounds bilaterally anteriorly at bases Abdomen: Remains softly distended. Midline incision is intact with singh. No packing in place. Small amount of purulent fluid was noted in dressing. No bowel sounds were heard. Stoma is pink and edematous. No air from the ostomy appliance - dark serous drainage noted. Extremities: Bilateral upper and lower urinary peripheral edema as well as scrotal edema Assessment/Plan Assessment/Plan This is an 89-year-old male with past medical history significant for hypertension, hyperlipidemia, and asthma, who is now postoperative day #5 status post exploratory laparotomy with Kirkland's procedure for perforated viscus. Intraoperatively he was found to have gross fecal contamination due to the perforation. Postoperative course was complicated by rapid A. fib, prompting the need for an amiodarone drip. He converted to sinus rhythm and drip has been discontinued. At this time, he remains intubated and sedated -Still awaiting bowel function. Patient remains intubated and will be kept nothing by mouth with an NG tube. -IV Zosyn as per ID. -Protonix for GI prophylaxis. -DVT prophylaxis with subcutaneous heparin and Alps. -Continue medical management per critical care team. -Will discuss with attending. Core Measures/Miscellaneous Edward Catheter Date In: 12/02/16 Venous Thromboembolism VTE Risk Factors: Acute medical illness, Age > 40, Surgery VTE Contraindications: No Contraindications VTE Prophylaxis [facility] Diagnosis: No Beta Abelardo Is Beta Abelardo a Home Med? No Antibiotics Is Patient on Antibiotics? Yes If Yes: infection
[2016-12-08 06:02] LABS: ABSOLUTE BASOPHIL COUNT 0 /CUMM (0.0-0.2); ABSOLUTE EOSINOPHIL COUNT 0 /CUMM (0.0-0.7); ABSOLUTE GRANULOCYTE CT 10.5 /CUMM (1.4-6.5); ABSOLUTE LYMPH COUNT 0.9 /CUMM (1.2-3.4); ABSOLUTE MONOCYTE COUNT 0.3 /CUMM (0.10-0.60); BASOPHIL % 0.1 % (0.0-2.0); EOSINOPHIL % 0.1 % (0-5); GRANULOCYTE % 89.8 % (42.2-75.2); HEMATOCRIT 34.4 % (42-52); MEAN CORPUSCULAR HGB 28.1 PG (27.0-31.0); MEAN CORPUSCULAR HGB CONC 33.7 G/DL (33.0-37.0); MEAN CORPUSCULAR VOLUME 83.3 FL (80.0-94.0); MEAN PLATELET VOLUME 8.9 FL (7.4-10.4); PLATELET COUNT 209 /CUMM (130-400); RBC DISTRIBUTION WIDTH 16.5 % (11.5-14.5); RED BLOOD CELL CT 4.13 /CUMM (4.70-6.10); WHITE BLOOD CELL COUNT 11.7 /CUMM (4.8-10.8)
--- NOTE | 2016-12-08 07:23 | PN- Resident CRCU ---
Subjective HPI/CRCU Issues: Current CRCU issues: 1. Perforated sigmoid colon S/P exploratory laparotomy Post op day 6 2. Intubated and mechanically ventilated 3. Fevers 24 Hour Events: I saw and examined the patient today morning. He is lying on the bed, intubated and mechanically ventilated. He is getting little worse and minimally responsive. Still spiking fevers with evident swelling. Multiple family members at bedside all the time. Objective Vital Signs & I&O Last 8 Hrs of Vitals and I&O: Intake & Output 12/08 0800 Intake Total 1032 Output Total 900 Balance 132 Intake, IV 1032 Output, 50 Gastric Drainage Output, Stool 50 Output, Urine 800 VS Tmax of 101.3 (last shift Tmax of 100) SR 85-95 BP 96-110/55-60mmHg SAS score of 3-4 On mechanical ventilation AC 20, VT 500, FiO2 40%, PEEP 5cm. Exam General Appearance: no apparent distress, alert, obese Head: atraumatic, normal appearance Neck: normal inspection, supple Respiratory: chest non-tender, transmitted sounds, gasping for breath Cardiovascular: regular rate/rhythm, normal peripheral pulses Gastrointestinal: no organomegaly, tenderness, minimal bowel sounds Extremities: normal inspection, normal capillary refill, swelling Cranial Nerves: normal hearing, PERRL Skin: intact Weaning Parameters NIF: 42 Minute Volume: 13 Resp rate: 24 Vt: 520 Heart Rate: 107 Weaning Schedule Start Time: 0940 Minute Volume: 13 Resp Rate: 24 Vt: 520 Heart Rate: 107 Central Line Site: right IJ - removed today Date In: 12/02/16 Need for Catheter: pressors PICC Site: left cephalic vein Date In: 12/08/16 Need for Catheter pressors Edward Still Needed? Yes IV Drips IV Drips: Fentanyl Pressors [id number] Nutrition Nutrition: NPO Current Medications: Current Medications Sig/Ar Start time Last Medication Dose Route Stop Time Status Admin Acetaminophen 1,000 MG .STK-MED ONE 12/07 1755 DC IV 12/07 175 Acetaminophen 1,000 MG Q6P PRN 12/04 194 AC 12/07 N/A 1 UNIT IV 1812 Albuterol Sulfate 3 ML EVERY 4 HRS/AWAKE 12/06 1600 AC 12/07 INH 2126 Dextrose/Sodium 1,000 ML Q13H 12/07 0915 AC 12/07 Chloride IV 2127 Dextrose/Sodium 1,000 ML Q6H 12/05 1830 DC 12/07 Chloride IV 0553 Fentanyl Citrate 1,000 MCG Q10H 12/04 1300 AC 12/08 Sodium Chloride 250 ML IV 0505 Furosemide 40 MG ONCE ONE 12/07 0945 DC 12/07 IV 12/07 0946 1007 Heparin Sodium 5,000 UNIT Q8 12/02 2200 AC 12/08 (Porcine) SC 0505 Ipratropium [place] 2.5 ML EVERY 4 HRS/AWAKE 12/06 1600 AC 12/07 INH 2126 Lorazepam 1 MG Q2P PRN 12/03 1330 AC 12/08 IV 0132 Morphine Sulfate 2 MG Q3P PRN 12/04 1300 AC 12/08 IV 0358 Morphine Sulfate 4 MG Q3P PRN 12/02 1800 AC 12/04 IV 1259 Ondansetron HCl 4 MG Q6P PRN 12/02 1800 AC IV Pantoprazole Sodium 40 MG DAILY 12/02 2200 AC 12/07 IV 1007 Piperacillin Sod/ 4.5 GM Q8H 12/03 1400 AC 12/08 Tazobactam Sod IV 0504 Sodium Chloride 100 ML Potassium Chloride 20 MEQ ONCE ONE 12/07 1815 DC 12/07 IV 12/07 1816 1826 Potassium Phosphate 15 mMol ONE ONE 12/08 0730 AC Dextrose/Water 250 ML IV 12/08 1133 Antibiotics Antibiotic: zosyn Day #: 6 IV/PO? IV CXR Findings: IMPRESSION: Tubes and lines as above. Persistent left basilar opacity. Impression/Plan Impression/Problem List Impression: Patient is a 89-year-old male with past medical history significant for asthma, hypertension, bilateral inguinal hernia status post repair 30 years ago came to the hospital yesterday with acute abdominal pain. In the ER he was eventually found to have acute perforation of sigmoid colon with peritonitis, underwent emergent surgery with Henny's procedure. He was subsequently sent to ICU for hemodynamic stabilization, further care as patient is at high risk for infection /respiratory failure postextubation. Today he is still intubated and ventilated, slightly arousable and spiking fevers. Problem List: 1. Dyslipidemia 2. Asthma 3. Bronchospasm 4. Perforated abdominal viscus 5. Left inguinal hernia 6. Peritonitis 7. COPD (chronic obstructive pulmonary disease) Pain Ratin Tomorrow's Labs & Rationales: ICU bundle CBC CXR ABG Plan Respiratory: Intubated and mechanically ventilated * On fentanyl drip, levophed and mildly arousable. * ABG in the morning - pH of 7.32, PaCO2 34, PaO2 106, HCO3 17. History of respiratory infection * Patient had chronic productive cough which was recently evaluated with sputum cultures * It revealed growth of Kluyer ascorbata and klebsiella * He was subsequently started on ciprofloxacin and a steroid taper. * He is still taking prednisolone for bronchospasm before admission. Infectious Diseases: Spiking fevers (cultures negative so far) * Patient is at high risk for infection post operatively as his peritoneum is filled with fecal matter. * He was given unasyn 3gm Q6 postop along with a 1dose of solucortef 50mg. * Blood cultures and urine cultures are sent postoperatively - negative so far. * On Zosyn 4.5 gm Q8hrs * Will follow up with white count and cultures. * He is febrile with Tmax of 100 Overnight. * on IV tylenol and cooling blankets. * if spikes fever again - pancultures. Cardiovascular: New onset Atrial Fibriallation in the setting of sepsis postoperativey * OFF amiodarone drip and maintaining Normal sinus rhythm. Hematology: Right Cephalic vein thrombosis * Right arm found to have superficial thrombosis in right cephalic vein. * Could be a source of fever. * Warm compressors without any anticoagulation for now. * Had a peripheral line in that region at the time of surgery. Metabolic: JUANA * Today creatinine is 1.4 * Creatinine at the time of admission is 1.1 * Post op - increased to 1.3 then 1.5 * Yesteray received a single dose of lasix 40mg * I/O - even 2038/3573 Alimentary: NPO with NG decompression Neurological: Intubated and sedated Skin: * Colostomy bag in place with drainage. * Today had some pinkish discharge from the incision site. * Dressed well. DVT/Prophylaxis: sc lovenox Code Status: Full Code
[2016-12-08 08:00] VITALS: BP 104/60
--- NOTE | 2016-12-08 09:00 | RADIOLOGY REPORT ---
EXAMINATION: XR PORTABLE CHEST CLINICAL INFORMATION: Ventilated patient COMPARISON: 12/07/2016 TECHNIQUE: Portable view of the chest was obtained. FINDINGS: Endotracheal tube tip 3 cm above fernando. Right central venous catheter tip at cavoatrial junction. ECG leads overlie the lower thorax. Distal enteric tube not depicted. Persistent abnormal hazy opacity at the left base. IMPRESSION: Tubes and lines as above. Persistent left basilar opacity.
--- NOTE | 2016-12-08 09:11 | ULTRASOUND REPORT ---
EXAMINATION: US UPPER EXTREMITY VENOUS, RIGHT CLINICAL INFORMATION: Right arm pain and swelling COMPARISON: None. TECHNIQUE: Doppler spectral analysis and color flow Doppler imaging was performed of the right upper extremity. Compression and augmentation maneuvers were performed. The study was performed portably with limited access because of bandages covering the patient's right neck and triple lumen. FINDINGS: Thrombus is present in the cephalic vein. The visualized portions of the right internal jugular vein, subclavian vein, axillary vein, brachial vein, basilic vein and visualized forearm veins were well-identified and normal. They demonstrate normal compressibility and color fill-in. IMPRESSION: Thrombus in the cephalic vein. This critical result was discussed with the doctor covering for Dr. Love at 6PM on the day of the exam and it was ascertained that the content and urgency of the report was understood at the time of direct communication.
--- NOTE | 2016-12-08 10:41 | PN- Infect Dx ---
Subjective Subjective: MAXIMUM TEMPERATURE 101.6. He has been more responsive. Blood pressure has remained borderline off pressors. Objective Last 24 Hrs of Vital Signs/I&O Vital Signs Date Time Temp Pulse Resp B/P Pulse O2 O2 Flow FiO2 Ox Delivery Rate 12/08 0805 40 12/08 0800 100.0 85 21 104/60 99 Ventilator 40% 12/08 08 99 Ventilator 40% 12/08 0553 40 12/08 0400 98 Ventilator 40% 12/08 0319 40 12/08 0025 40 12/08 0000 100.2 94 23 124/72 97 Ventilator 40% 12/08 0000 97 Ventilator 40% 12/07 2253 40 12/07 2000 95 Ventilator 40% 12/07 1945 40 12/07 1911 101.1 12/07 1812 101.5 12/07 1630 40 12/07 1600 99.1 90 22 102/60 95 Ventilator 40% 12/07 1600 97 Ventilator 40% 12/07 1430 40 12/07 1300 100.7 12/07 1200 94 Ventilator 40% 12/07 1152 101.2 12/07 1125 40 Intake & Output 12/08 1600 12/08 0800 12/08 0000 Intake Total 1032 1203 Output Total 900 925 Balance 132 278 Intake, IV 1032 1203 Output, 50 50 Gastric Drainage Output, Stool 50 100 Output, Urine 800 775 Patient 236 lb Weight Physical Exam Other Physical Findings: He is arousable and more responsive compared to yesterday Neck right IJ triple-lumen catheter with no inflammation at the site Lungs bilateral rhonchi Heart regular rhythm with no murmur Abdomen is distended, tender on palpation, with positive bowel sounds; liquid stool in the colostomy; incision clean, with no erythema, with superior aspect opened by surgery Extremities right upper extremity edema unchanged; bilateral lower extremity edema Edward catheter remains in place Results Last 24 Hours of Lab Results: Laboratory Tests 12/08 12/08 12/07 0815 0440 2100 Blood Gas pH (7.35 - 7.45 PH) 7.32 L pCO2 (35 - 45 TORR) 34 L pO2 (80 - 100 TORR) 106 H HCO3 (21 - 28 MEQ/L) 17 L ABG O2 Sat (Measured) (>96.0 %) 97.0 P-50 (Temp Corrected) Y Carboxyhemoglobin (1.5 - 5.0 %) 0.8 L O2 Concentration % 40 Temperature (97.0 - 100.0 FARH) 100.1 H Respiration Rate (BPM) 20 O2 Delivery Method VENT Vent Mode VC-AC Expiratory Pressure (CMH2O/P) 5 Tidal Volume (CC) 500 Chemistry Sodium (137 - 145 mmol/L) 150 H 148 H Potassium (3.5 - 5.1 mmol/L) 3.5 3.9 Chloride (98 - 107 mmol/L) 117 H 115 H Carbon Dioxide (22 - 30 mmol/L) 18 L 19 L Anion Gap (5 - 16) 15 14 BUN (9 - 20 mg/dL) 40 H 43 H Creatinine (0.7 - 1.2 mg/dL) 1.4 H 1.6 H Estimated GFR (>60 ml/min) 48 L 41 L Glucose (65 - 99 mg/dL) 100 H 104 H Serum Osmolality (285 - 295 MOSM/KG) 319 H Lactic Acid (0.7 - 2.1 mmol/L) 1.4 Calcium (8.4 - 10.2 mg/dL) 7.2 L 7.0 L Phosphorus (2.5 - 4.5 mg/dL) 3.4 3.2 Magnesium (1.6 - 2.3 mg/dL) 2.1 2.1 Total Bilirubin (0.2 - 1.3 mg/dL) 1.4 H 1.4 H AST (17 - 59 U/L) 47 43 ALT (21 - 72 U/L) 33 28 Albumin (3.5 - 5.0 g/dL) 1.8 L 1.7 L Hematology CBC w Diff MAN DIFF ORDERED WBC (4.8 - 10.8 /CUMM) 11.7 H RBC (4.70 - 6.10 /CUMM) 4.13 L Hgb (14.0 - 18.0 G/DL) 11.6 L Hct (42 - 52 %) 34.4 L MCV (80.0 - 94.0 FL) 83.3 MCH (27.0 - 31.0 PG) 28.1 RDW (11.5 - 14.5 %) 16.5 H Plt Count (130 - 400 /CUMM) 209 MPV (7.4 - 10.4 FL) 8.9 Gran % (42.2 - 75.2 %) 89.8 H Lymphocytes % (20.5 - 51.1 %) 7.7 L Monocytes % (1.7 - 9.3 %) 2.3 Eosinophils % (0 - 5 %) 0.1 Basophils % (0.0 - 2.0 %) 0.1 Absolute Granulocytes (1.4 - 6.5 /CUMM) 10.5 H Segmented Neutrophils (42.2 - 75.2 %) 79 H Band Neutrophils (0.0 - 5.0 %) 6 H Absolute Lymphocytes (1.2 - 3.4 /CUMM) 0.9 L Lymphocytes (20.5 - 51.1 %) 11 L Monocytes (1.7 - 9.3 %) 3 Absolute Monocytes (0.10 - 0.60 /CUMM) 0.3 Absolute Eosinophils (0.0 - 0.7 /CUMM) 0 Absolute Basophils (0.0 - 0.2 /CUMM) 0 Metamyelocytes (0.0 - 1.0 %) 1 Platelet Estimate (ADEQUATE) ADEQUATE Polychromasia 1+ Poikilocytosis 1+ Ovalocytes 1+ PUBS MCHC (33.0 - 37.0 G/DL) 33.7 Miscellaneous Phlebotomy Draw Site LEFT RADIAL Other Body Source Fld Total RBCs Counted (%) 100 Last 24 Hours of Adrian Results: Blood cultures December 04 negative Urine culture December 05 negative Recent Imaging Studies: Chest x-ray December 08 slight increase in bibasilar densities Doppler of the right upper extremity December 07 reveals a thrombus in the cephalic vein Assessment/Plan Impression: Persistent fevers with white blood cell count slightly elevated today, though with decreased bands, and with blood pressure remaining stable though borderline on Zosyn now Day 6 of treatment for peritonitis secondary to a perforated viscus status post Kirkland's procedure 6 days ago. Possible sources of fever include the abdomen, for example an abscess related to his recent peritonitis, though the recent CT scan of the abdomen and pelvis was negative, a new, healthcare associated infection, for example secondary to his right IJ, Edward or ventilator , or a noninfectious process, such as the cephalic vein thrombosis noted on the recent right upper extremity Doppler. Suggestion: 1. Further management of the cephalic vein thrombosis per Medicine/Surgery 2. Repeat blood cultures, urine culture and sputum culture if re-spikes 3. Repeat CT of the abdomen and pelvis in the next day or two if fevers persist 4. Would pursue placement of a PICC so that the right IJ can be removed 5. Continue Zosyn
--- NOTE | 2016-12-08 11:35 | NUR ---
@0800-PT OPENS EYES SPONT BUT NOT FOCUSING OR FOLLOWING ANY COMMANDS. SÁNCHEZ. WEAK. PUPILS EQUAL AND REACTIVE, SLUGGISH. TEMP 100 THIS AM. PT CONT ON FENT GTT AT 175MG., ATIVAN AND MORPHINE PRN. CONT ON VENT, NO CHANGE TO SETTINGS. O2SAT 97%. MIN SECRETIONS NOTED-SUH IN COLOR. ORAL CARE PROVIDED. REPEAT ABG DRAWN AT THIS TIME. NEBS Q4. NSR HR 80S. CVP 10 THIS AM. BP STABLE. STOMA PINK AND EDEMATOUS WITH SS DRAINAGE AND BOUTS OF GREEN SEMILIQ STOOL. HYPOACTIVE BS COMPARED TO YEST AND ABD MORE DISTENDED AND FIRM-DR IRVING AT BEDSIDE TO ASSESS-NEW DSG APPLIED TO SITE BY SURGEON. NGT NOTED TO R NARES-TO LWS, LIGHT GREEN DRAINAGE NOTED. ANN IN PLACE, ADEQUATE OUTPUT NOTED. EDEMA CONT GEN. +2 TO RUE, +3 RH, +2 LH, +2 BLE, +3 SCROTAL. NO SKIN BREAKDOWN NOTED. IVF CONT TO INFUSE AT 75ML/HR. K+3.5 THIS AM, KCL 20MEQ BOLUSES X 2 ORD. KPHOS BOLUS ORD. REPEAT LABS AT 1500. CONT TO MONITOR, CALL KAMARI BELL. FAMILY AT BEDSIDE AND UPDATED.
--- NOTE | 2016-12-08 11:42 | NUR ---
@1100-PT TEMP 101.1. COOLING BLANKET IN PLACE AT THIS TIME AND PT MEDICATED WITH PRN TYELENOL. IV MORPHINE ADMINISTERED FOR INCREASED RESTLESSNESS AND FACIAL GRIMACES. KPHOS BOLUS INFUSING AT THIS TIME.
--- NOTE | 2016-12-08 12:44 | PN- CRCU ---
Subjective HPI/Critical Care Issues: Patient seen and examined. He is sedated on fentanyl the review of systems is unobtainable. He is currently not on vasopressors but his blood pressures borderline in the 90s. He is making liquidy stool in his colostomy. He is continuing to spike fevers. Objective Current Medications: Current Medications Sig/Ar Start time Last Medication Dose Route Stop Time Status Admin Acetaminophen 1,000 MG .STK-MED ONE 12/07 1755 DC IV 12/07 1756 Acetaminophen 1,000 MG Q6P PRN 12/04 1945 AC 12/08 N/A 1 UNIT IV 1101 Albuterol Sulfate 3 ML EVERY 4 HRS/AWAKE 12/06 1600 AC 12/08 INH 1201 Dextrose/Sodium 1,000 ML Q13H 12/07 0915 AC 12/08 Chloride IV 1032 Fentanyl Citrate 1,000 MCG Q10H 12/04 1300 AC 12/08 Sodium Chloride 250 ML IV 0505 Heparin Sodium 5,000 UNIT Q8 12/02 2200 AC 12/08 (Porcine) SC 0505 Ipratropium [place] 2.5 ML EVERY 4 HRS/AWAKE 12/06 1600 AC 12/08 INH 1201 Lorazepam 1 MG Q2P PRN 12/03 1330 AC 12/08 IV 0132 Morphine Sulfate 2 MG Q3P PRN 12/04 1300 AC 12/08 IV 1127 Morphine Sulfate 4 MG Q3P PRN 12/02 1800 AC 12/04 IV 1259 Ondansetron HCl 4 MG Q6P PRN 12/02 1800 AC IV Pantoprazole Sodium 40 MG DAILY 12/02 2200 AC 12/08 IV 1031 Piperacillin Sod/ 4.5 GM Q8H 12/03 1400 AC 12/08 Tazobactam Sod IV 0504 Sodium Chloride 100 ML Potassium Chloride 20 MEQ Q1H 12/08 0830 DC 12/08 IV 12/08 0931 1000 Potassium Chloride 20 MEQ ONCE ONE 12/07 1815 DC 12/07 IV 12/07 1816 1826 Potassium Phosphate 15 mMol ONE ONE 12/08 0730 DC 12/08 Dextrose/Water 250 ML IV 12/08 1133 1101 Vital Signs & I&O Last 24 Hrs of Vitals and I&O: Vital Signs Date Time Temp Pulse Resp B/P Pulse O2 O2 Flow FiO2 Ox Delivery Rate 12/08 1202 40 12/08 1101 101.0 12/08 0805 40 12/08 0800 100.0 85 21 104/60 99 Ventilator 40% 12/08 08 99 Ventilator 40% 12/08 0553 40 12/08 0400 98 Ventilator 40% 12/08 0319 40 12/08 0025 40 12/08 0000 100.2 94 23 124/72 97 Ventilator 40% 12/08 0000 97 Ventilator 40% 12/07 2253 40 12/07 2000 95 Ventilator 40% 12/07 1945 40 12/07 1911 101.1 12/07 1812 101.5 12/07 1630 40 12/07 1600 99.1 90 22 102/60 95 Ventilator 40% 12/07 1600 97 Ventilator 40% 12/07 1430 40 12/07 1300 100.7 Intake & Output 12/08 1600 12/08 0812/08 0000 Intake Total 1032 1203 Output Total 900 925 Balance 132 278 Intake, IV 1032 1203 Output, 50 50 Gastric Drainage Output, Stool 50 100 Output, Urine 800 775 Patient 236 lb Weight Exam Other Physical Findings: gen intubated heent ett cvs s1, s2 lungs transmitted abd diminished bs+ ext no edema Results Last 24 Hrs of Lab Results: Laboratory Tests 12/08/16 0815: pH 7.32 L, pCO2 34 L, pO2 106 H, HCO3 17 L, ABG O2 Sat (Measured) 97.0, P-50 (Temp Corrected) Y, Carboxyhemoglobin 0.8 L, O2 Concentration % 40, Temperature 100.1 H, Respiration Rate 20, O2 Delivery Method VENT, Vent Mode VC-AC, Expiratory Pressure 5, Tidal Volume 500, Phlebotomy Draw Site LEFT RADIAL 12/08/16 0440: Anion Gap 15, Estimated GFR 48 L, Glucose 100 H, Serum Osmolality 319 H, Lactic Acid 1.4, Calcium 7.2 L, Phosphorus 3.4, Magnesium 2.1, Total Bilirubin 1.4 H, AST 47, ALT 33, Albumin 1.8 L, CBC w Diff MAN DIFF ORDERED, RBC 4.13 L , MCV 83.3, MCH 28.1, RDW 16.5 H, MPV 8.9, Gran % 89.8 H, Lymphocytes % 7.7 L , Monocytes % 2.3, Eosinophils % 0.1, Basophils % 0.1, Absolute Granulocytes 10.5 H, Segmented Neutrophils 79 H, Band Neutrophils 6 H, Absolute Lymphocytes 0.9 L, Lymphocytes 11 L, Monocytes 3, Absolute Monocytes 0.3, Absolute Eosinophils 0, Absolute Basophils 0, Metamyelocytes 1, Platelet Estimate ADEQUATE, Polychromasia 1+, Poikilocytosis 1+, Ovalocytes 1+, PUBS MCHC 33.7, Fld Total RBCs Counted 100 12/07/16 2100: Anion Gap 14, Estimated GFR 41 L, Glucose 104 H, Calcium 7.0 L, Phosphorus 3.2, Magnesium 2.1, Total Bilirubin 1.4 H, AST 43, ALT 28, Albumin 1.7 L Impression/Plan Impression/Plan Impression/Plan: Impression 89 year old man * 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 for acute abdominal perforation * Respiratory failure with increased bibasilar opacities, maybe fluid overload * History of obstructive lung disease Plan Respiratory - Monitor chest x-rays and ABGs - TRC/Nebs ID - Zosyn, ID f/u, cx monitoring, fever/wbc monitoring - If continuing to spike will need reimaging CVS - monitor hemodynamics - monitor CVP - Superficial cephalic vein thrombosis will need warm compresses Heme - monitor cbc, coags Metabolic - ins/outs, sis, nephrology input early on, if creatinine does not improve will call nephrology Alimentary - NPO, per surgery - D5W and recheck BMP given hypernatremia Neuro - sedation as necessary for comfort DVT prophylaxis at all times TTS 40 min Family discussion was held regarding goals of care. We will continue her current management without any changes at this time however the family will discuss the possibility of changing his CODE STATUS to DNR. We will continue to have ongoing conversation with the family when that change maybe appropriate Code Status: Full Code
--- NOTE | 2016-12-08 12:50 | Event Note ---
Event Note Event Note: Family meeting is held with daughter and daughter in law, regarding current condition. Moving further they are informed about the consequences and end points expected. Family want to continue current treatment for now. They would like to have some time and decide on further care options together.
--- NOTE | 2016-12-08 15:52 | RADIOLOGY REPORT ---
EXAMINATION: XR PORTABLE CHEST CLINICAL INFORMATION: Check PICC line placement COMPARISON: Previous chest x-rays most recent from earlier the same day TECHNIQUE: AP portable chest FINDINGS: The cardiac and mediastinal contours are stable. There is an endotracheal tube with tip 6 cm above the fernando. There is a right internal jugular line with tip projecting over the SVC. There is a new left upper extremity PICC line with tip projecting over the SVC. There is a nasogastric tube that projects below the left hemidiaphragm. The tip is not seen. There is atelectasis or small infiltrate seen at the lung bases. The lungs are otherwise clear. There is no pleural effusion or pneumothorax. IMPRESSION: New left upper extremity PICC line tip projects over SVC. Tip of nasogastric tube not seen.
[2016-12-08 16:00] VITALS: BP 102/60
--- NOTE | 2016-12-08 17:46 | NUR ---
@1500-NEW BILLY PICC LINE PLACED BY HANNAH. CXR CONFIRMED PLACEMENT. FAMILY AT BEDSIDE. TEMP LOWGRADE 99-100. IVF CONT. FENT GTT CONT AT 175MCG. VSS. CONT TO MONITOR.
--- NOTE | 2016-12-08 17:47 | NUR ---
@1730-[facility] DC'D BY [facility]SE[facility]FF. NEW LINES/INFUSION BAGS STARTED THROUGH PICC LINE. REPEAT LABS DUE AT 1800. WARM COMPRESS APPLIED TO EWELINA FOR NEW SUPERFICIAL THROMBUS. CONT TO MONITOR CLOSELY.
[2016-12-09] VITALS: BP 97/66
[2016-12-09 05:11] LABS: ABSOLUTE BASOPHIL COUNT 0.1 /CUMM (0.0-0.2); ABSOLUTE EOSINOPHIL COUNT 0 /CUMM (0.0-0.7); ABSOLUTE GRANULOCYTE CT 13.4 /CUMM (1.4-6.5); ABSOLUTE LYMPH COUNT 1.3 /CUMM (1.2-3.4); ABSOLUTE MONOCYTE COUNT 0.6 /CUMM (0.10-0.60); BASOPHIL % 0.4 % (0.0-2.0); EOSINOPHIL % 0.3 % (0-5); GRANULOCYTE % 87.1 % (42.2-75.2); HEMATOCRIT 33.3 % (42-52); MEAN CORPUSCULAR HGB CONC 33.4 G/DL (33.0-37.0); MEAN CORPUSCULAR VOLUME 84.1 FL (80.0-94.0); MEAN PLATELET VOLUME 8.6 FL (7.4-10.4); PLATELET COUNT 237 /CUMM (130-400); RED BLOOD CELL CT 3.97 /CUMM (4.70-6.10); WHITE BLOOD CELL COUNT 15.4 /CUMM (4.8-10.8)
--- NOTE | 2016-12-09 06:05 | PN- General Surgery ---
See Addendum Subjective Subjective: REMAINS INTUBATED SEDATED, ON FENT DRIP OPENS EYES TO VOICE BP STABLE TMAX 101.1 LAST NIGHT Objective Vital Signs and I&Os Vital Signs Date Time Temp Pulse Resp B/P Pulse O2 O2 Flow FiO2 Ox Delivery Rate 12/09 0535 40 12/09 0321 40 12/09 0026 40 12/09 0022 100.8 12/09 0000 100.8 96 23 97/66 97 Ventilator 40% 12/09 0000 97 Ventilator 40% 12/08 2323 101.5 12/08 2209 40 12/08 2000 100 Ventilator 40% 12/08 1939 40 12/08 1614 40 12/08 1600 98.8 83 22 102/60 99 Ventilator 40% 12/08 1600 99 Ventilator 40% 12/08 1405 40 12/08 1202 40 12/08 1200 100.2 12/08 1200 96 Ventilator 40% 12/08 1101 101.0 12/08 0805 40 12/08 0800 100.0 85 21 104/60 99 Ventilator 40% 12/08 0800 99 Ventilator 40% Intake & Output 12/09 0800 12/09 0000 12/08 1600 12/08 0800 12/08 0000 12/07 1600 Intake Total 1042 1109 1032 1203 1233 Output Total 660 390 133 796 2072 Balance 382 719 132 278 -517 Intake, IV 1042 1109 1032 1203 1233 Intake, Oral 0 0 0 Intake, Other 0 Output, 40 60 50 50 50 Gastric Drainage Output, Stool 20 30 50 100 400 Output, Urine 600 300 744 109 5942 Patient 236 lb 237 lb Weight Physical Exam: CV: RRR LUNGS: SCATERED RHONCHI ABD: SOFTLY DISTENDED WINCES TO PALPATION MUCOPURULENT DRAINAGE AT OPEN AREAS INFERIORLY AND SUPERIORLY STOMA RED WITHOUT EVIDNCE JOF ISCHEMIA BROWN LIQUID STOOL IN OSTOMY EXT: COOL, +2EDEMA PALP PULSES URIMETER: PICKING UP, CONCENTRATED Current Medications: Current Medications Sig/Ar Start time Last Medication Dose Route Stop Time Status Admin Acetaminophen 1,000 MG .STK-MED ONE 12/08 2142 DC IV 12/08 214 Acetaminophen 1,000 MG .STK-MED ONE 12/08 1059 DC IV 12/08 1100 Acetaminophen 1,000 MG Q6P PRN 12/04 1945 AC 01/11 N/A 1 UNIT IV 2323 Albuterol Sulfate 3 ML EVERY 4 HRS/AWAKE 12/06 1600 AC 12/08 INH 1938 Dextrose/Sodium 1,000 ML Q13H 12/07 0915 DC 12/08 Chloride IV 1032 Dextrose/Water 1,000 ML Q13H 12/08 1300 AC 12/09 IV 0546 Fentanyl Citrate 1,000 MCG Q6H 12/09 0430 AC 12/09 Sodium Chloride 250 ML IV 0505 Fentanyl Citrate 1,000 MCG Q10H 12/04 1300 DC 12/08 Sodium Chloride 250 ML IV 2314 Heparin Sodium 5,000 UNIT Q8 12/02 2200 AC 12/09 (Porcine) SC 0549 Ipratropium [place] 2.5 ML EVERY 4 HRS/AWAKE 12/06 1600 AC 12/08 INH 1938 Lorazepam 1 MG Q2P PRN 12/03 1330 AC 12/08 IV 2110 Morphine Sulfate 2 MG Q3P PRN 12/04 1300 AC 12/08 IV 1127 Morphine Sulfate 4 MG Q3P PRN 12/02 1800 AC 12/04 IV 1259 Ondansetron HCl 4 MG Q6P PRN 12/02 1800 AC IV Pantoprazole Sodium 40 MG DAILY 12/02 2200 AC 12/08 IV 1031 Piperacillin Sod/ 4.5 GM Q8H 12/03 1400 AC 12/09 Tazobactam Sod IV 0552 Sodium Chloride 100 ML Potassium Chloride 20 MEQ Q1H 12/08 0830 DC 12/08 IV 12/08 0931 1000 Potassium Phosphate 15 mMol ONE ONE 12/08 0730 DC 12/08 Dextrose/Water 250 ML IV 12/08 1133 1101 Results Last 48 Hours of Labs: Laboratory Tests 12/09 12/08 12/08 0437 1833 1500 Chemistry Sodium (137 - 145 mmol/L) 149 H 149 H Cancelled Potassium (3.5 - 5.1 mmol/L) 4.0 3.9 Cancelled Chloride (98 - 107 mmol/L) 117 H 116 H Cancelled Carbon Dioxide (22 - 30 mmol/L) 20 L 20 L Cancelled Anion Gap (5 - 16) 12 13 Cancelled BUN (9 - 20 mg/dL) 37 H 39 H Cancelled Creatinine (0.7 - 1.2 mg/dL) 1.2 1.2 Cancelled Estimated GFR (>60 ml/min) 57 L 57 L Glucose (65 - 99 mg/dL) 105 H 102 H Cancelled Serum Osmolality (285 - 295 MOSM/KG) 319 H Calcium (8.4 - 10.2 mg/dL) 7.3 L 7.4 L Cancelled Phosphorus (2.5 - 4.5 mg/dL) 3.0 3.4 Cancelled Magnesium (1.6 - 2.3 mg/dL) 2.2 2.2 Cancelled Total Bilirubin (0.2 - 1.3 mg/dL) 1.2 1.3 Cancelled AST (17 - 59 U/L) 52 53 Cancelled ALT (21 - 72 U/L) 33 39 Cancelled Albumin (3.5 - 5.0 g/dL) 1.8 L 1.8 L Cancelled Hematology CBC w Diff MAN DIFF ORDERED WBC (4.8 - 10.8 /CUMM) 15.4 H RBC (4.70 - 6.10 /CUMM) 3.97 L Hgb (14.0 - 18.0 G/DL) 11.1 L Hct (42 - 52 %) 33.3 L MCV (80.0 - 94.0 FL) 84.1 MCH (27.0 - 31.0 PG) 28.0 RDW (11.5 - 14.5 %) 17.0 H Plt Count (130 - 400 /CUMM) 237 MPV (7.4 - 10.4 FL) 8.6 Gran % (42.2 - 75.2 %) 87.1 H Lymphocytes % (20.5 - 51.1 %) 8.6 L Monocytes % (1.7 - 9.3 %) 3.6 Eosinophils % (0 - 5 %) 0.3 Basophils % (0.0 - 2.0 %) 0.4 Absolute Granulocytes (1.4 - 6.5 /CUMM) 13.4 H Segmented Neutrophils (42.2 - 75.2 %) 76 H Band Neutrophils (0.0 - 5.0 %) 3 Absolute Lymphocytes (1.2 - 3.4 /CUMM) 1.3 Lymphocytes (20.5 - 51.1 %) 16 L Monocytes (1.7 - 9.3 %) 4 Absolute Monocytes (0.10 - 0.60 /CUMM) 0.6 Eosinophils (0 - 5.0 %) 1 Absolute Eosinophils (0.0 - 0.7 /CUMM) 0 Absolute Basophils (0.0 - 0.2 /CUMM) 0.1 Platelet Estimate (ADEQUATE) ADEQUATE Polychromasia 1+ Poikilocytosis 1+ Ovalocytes 1+ Stomatocytes FEW PUBS MCHC (33.0 - 37.0 G/DL) 33.4 Other Body Source Fld Total RBCs Counted (%) 100 Urines Urine Osmolality (300 - 1000 MOSM/KG) 568 12/08 12/08 12/08 1300 0815 0440 Blood Gas pH (7.35 - 7.45 PH) 7.32 L pCO2 (35 - 45 TORR) 34 L pO2 (80 - 100 TORR) 106 H HCO3 (21 - 28 MEQ/L) 17 L ABG O2 Sat (Measured) (>96.0 %) 97.0 P-50 (Temp Corrected) Y Carboxyhemoglobin (1.5 - 5.0 %) 0.8 L O2 Concentration % 40 Temperature (97.0 - 100.0 FARH) 100.1 H Respiration Rate (BPM) 20 O2 Delivery Method VENT Vent Mode VC-AC Expiratory Pressure (CMH2O/P) 5 Tidal Volume (CC) 500 Chemistry Sodium (137 - 145 mmol/L) 150 H Potassium (3.5 - 5.1 mmol/L) 3.5 Chloride (98 - 107 mmol/L) 117 H Carbon Dioxide (22 - 30 mmol/L) 18 L Anion Gap (5 - 16) 15 BUN (9 - 20 mg/dL) 40 H Creatinine (0.7 - 1.2 mg/dL) 1.4 H Estimated GFR (>60 ml/min) 48 L Glucose (65 - 99 mg/dL) 100 H Serum Osmolality (285 - 295 MOSM/KG) 319 H Lactic Acid (0.7 - 2.1 mmol/L) 1.4 Calcium (8.4 - 10.2 mg/dL) 7.2 L Phosphorus (2.5 - 4.5 mg/dL) 3.4 Magnesium (1.6 - 2.3 mg/dL) 2.1 Total Bilirubin (0.2 - 1.3 mg/dL) 1.4 H AST (17 - 59 U/L) 47 ALT (21 - 72 U/L) 33 Albumin (3.5 - 5.0 g/dL) 1.8 L Hematology CBC w Diff MAN DIFF ORDERED WBC (4.8 - 10.8 /CUMM) 11.7 H RBC (4.70 - 6.10 /CUMM) 4.13 L Hgb (14.0 - 18.0 G/DL) 11.6 L Hct (42 - 52 %) 34.4 L MCV (80.0 - 94.0 FL) 83.3 MCH (27.0 - 31.0 PG) 28.1 RDW (11.5 - 14.5 %) 16.5 H Plt Count (130 - 400 /CUMM) 209 MPV (7.4 - 10.4 FL) 8.9 Gran % (42.2 - 75.2 %) 89.8 H Lymphocytes % (20.5 - 51.1 %) 7.7 L Monocytes % (1.7 - 9.3 %) 2.3 Eosinophils % (0 - 5 %) 0.1 Basophils % (0.0 - 2.0 %) 0.1 Absolute Granulocytes (1.4 - 6.5 /CUMM) 10.5 H Segmented Neutrophils (42.2 - 75.2 %) 79 H Band Neutrophils (0.0 - 5.0 %) 6 H Absolute Lymphocytes (1.2 - 3.4 /CUMM) 0.9 L Lymphocytes (20.5 - 51.1 %) 11 L Monocytes (1.7 - 9.3 %) 3 Absolute Monocytes (0.10 - 0.60 /CUMM) 0.3 Absolute Eosinophils (0.0 - 0.7 /CUMM) 0 Absolute Basophils (0.0 - 0.2 /CUMM) 0 Metamyelocytes (0.0 - 1.0 %) 1 Platelet Estimate (ADEQUATE) ADEQUATE Polychromasia 1+ Poikilocytosis 1+ Ovalocytes 1+ PUBS MCHC (33.0 - 37.0 G/DL) 33.7 Miscellaneous Phlebotomy Draw Site LEFT RADIAL Other Body Source Fld Total RBCs Counted (%) 100 Urines Urine Osmolality (300 - 1000 MOSM/KG) 565 12/07 12/07 2100 0850 Chemistry Sodium (137 - 145 mmol/L) 148 H Potassium (3.5 - 5.1 mmol/L) 3.9 Chloride (98 - 107 mmol/L) 115 H Carbon Dioxide (22 - 30 mmol/L) 19 L Anion Gap (5 - 16) 14 BUN (9 - 20 mg/dL) 43 H Creatinine (0.7 - 1.2 mg/dL) 1.6 H Estimated GFR (>60 ml/min) 41 L Glucose (65 - 99 mg/dL) 104 H Lactic Acid (0.7 - 2.1 mmol/L) 1.6 Calcium (8.4 - 10.2 mg/dL) 7.0 L Phosphorus (2.5 - 4.5 mg/dL) 3.2 Magnesium (1.6 - 2.3 mg/dL) 2.1 Total Bilirubin (0.2 - 1.3 mg/dL) 1.4 H AST (17 - 59 U/L) 43 ALT (21 - 72 U/L) 28 Albumin (3.5 - 5.0 g/dL) 1.7 L Assessment/Plan Assessment/Plan FECAL PERITONITIS S/P WEST'S RISING LEUKOCYTOSIS PLAN CONT ICU PROTOCL F/U WITH ID/ABX WILL DISCUSS WITH ATTENDING Core Measures/Miscellaneous Edward Catheter Date In: 12/02/16 Venous Thromboembolism VTE Risk Factors: Acute medical illness, Age > 40, Surgery VTE Contraindications: No Contraindications VTE Prophylaxis Ordered Inpt Mech & Pharm VTE Diagnosis: No Beta Abelardo Is Beta Abelardo a Home Med? No Antibiotics Is Patient on Antibiotics? Yes If Yes: infection
--- NOTE | 2016-12-09 07:45 | PN- Resident CRCU ---
Subjective HPI/CRCU Issues: Current CRCU issues: 1. Perforated sigmoid colon S/P exploratory laparotomy Post op day 7 2. Intubated and mechanically ventilated 3. Fevers with Tmax of 101.8 24 Hour Events: I saw and examined the patient today. He is very mildly arousable, still intubated and sedated. Still spiking fevers. Appears more fluid overloaded. Objective Vital Signs & I&O Last 8 Hrs of Vitals and I&O: Intake & Output 12/09 1600 Intake Total 1145 Output Total 650 Balance 495 Intake, IV 1145 Intake, Oral 0 Output, 50 Gastric Drainage Output, Stool 100 Output, Urine 500 Patient 113.398 kg Weight VS Febrile with Tmax of 101.8, HR 75-90, BP 90-110/50-60mmHg On mechanical ventilation AC 20, VT 500, PEEP 5cm Exam General Appearance: sedated, intubated, obese Head: atraumatic, normal appearance Respiratory: chest non-tender, transmitted sounds Cardiovascular: regular rate/rhythm, normal peripheral pulses Gastrointestinal: minimal bowel sounds mild serosanginous discharge form the wound. No evident pus/erythema from the wound site Extremities: normal capillary refill, pedal edema, swelling Cranial Nerves: PERRL Weaning Parameters NIF: 42 Minute Volume: 13 Resp rate: 24 Vt: 520 Heart Rate: 107 Weaning Schedule Start Time: 0940 Minute Volume: 13 Resp Rate: 24 Vt: 520 Heart Rate: 107 PICC Site: left upper extremity Date In: 12/08/16 IV Drips IV Drips: Fentanyl D5W TPN - day1 Nutrition Nutrition: P.O. diet, TPN rate Current Medications: Current Medications Sig/Ar Start time Last Medication Dose Route Stop Time Status Admin Acetaminophen 1,000 MG .STK-MED ONE 12/09 0557 DC IV 12/09 0558 Acetaminophen 1,000 MG .STK-MED ONE 12/08 2142 DC IV 12/08 214 Acetaminophen 1,000 MG Q6P PRN 12/04 1945 AC 12/09 N/A 1 UNIT IV 2000 Albuterol Sulfate 3 ML EVERY 4 HRS/AWAKE 12/06 1600 AC 12/09 INH 1618 Dextrose/Water 1,000 ML Q13H 12/08 1300 DC 12/09 IV 0546 Fat Emulsion 250 ML 1900 12/09 1900 AC 12/09 Intravenous IV 12/10 1859 2000 Fentanyl Citrate 1,000 MCG Q6H 12/09 0430 AC 12/09 Sodium Chloride 250 ML IV 1049 Fentanyl Citrate 1,000 MCG Q10H 12/04 1300 DC 12/08 Sodium Chloride 250 ML IV 2314 Heparin Sodium 5,000 UNIT Q8 12/02 2200 AC 12/09 (Porcine) SC 1329 Ipratropium [place] 2.5 ML EVERY 4 HRS/AWAKE 12/06 1600 AC 12/09 INH 1618 Lorazepam 1 MG Q2P PRN 12/03 1330 AC 12/09 IV 1103 Morphine Sulfate 2 MG Q3P PRN 12/04 1300 AC 12/08 IV 1127 Morphine Sulfate 4 MG Q3P PRN 12/02 1800 DC 12/04 IV 1259 Ondansetron HCl 4 MG Q6P PRN 12/02 1800 AC IV Pantoprazole Sodium 40 MG DAILY 12/02 2200 AC 12/09 IV 1044 Piperacillin Sod/ 4.5 GM Q8H 12/03 1400 AC 12/09 Tazobactam Sod IV 1330 Sodium Chloride 100 ML Potassium Phosphate 15 mMol ONE ONE 12/09 0730 DC 12/09 Dextrose/Water 250 ML IV 12/09 1133 0830 Total Parenteral 1 UNIT 1900 12/09 1900 AC 12/09 Nutrition IV 12/[address] Scan Findings: head CT IMPRESSION: Significantly limited examination secondary to motion and beam hardening artifact. Within these limitations, there is no definite acute intracranial abnormality detected. No intracranial hemorrhage or mass effect. CT abdomen and Pelvis CT ABDOMEN PELVIS: Persistent loculated fluid collections through the mesentery unchanged significantly in volume or size since the prior exam of 12/05/2016. The dilated small bowel loops on the CT scan of 12/05/2016 have resolved. There is decreasing colonic wall thickening since the prior CT scan. Patient has a left- sided colostomy without obstruction. CT CHEST: Persistent bibasilar atelectasis and bilateral pleural effusions, similar to the prior CT scan 12/05/2016. Impression/Plan Impression/Problem List Impression: Patient is a 89-year-old male with past medical history significant for asthma, hypertension, bilateral inguinal hernia status post repair 30 years ago came to the hospital yesterday with acute abdominal pain. In the ER he was eventually found to have acute perforation of sigmoid colon with peritonitis, underwent emergent surgery with Henny's procedure. He was subsequently sent to ICU for hemodynamic stabilization, further care as patient is at high risk for infection /respiratory failure postextubation. Today he is still intubated and ventilated, slightly arousable and spiking fevers. Plan Respiratory: Intubated and mechanically ventilated * On fentanyl drip, levophed and mildly arousable. * ABG in the morning - pH of 7.35, PaCO2 22, PaO2 137, HCO3 12. History of respiratory infection * Patient had chronic productive cough which was recently evaluated with sputum cultures * It revealed growth of Kluyer ascorbata and klebsiella * He was subsequently started on ciprofloxacin and a steroid taper. * He is still taking prednisolone for bronchospasm before admission. Infectious Diseases: Spiking fevers (cultures negative so far) * Patient is at high risk for infection post operatively as his peritoneum is filled with fecal matter. * He was given unasyn 3gm Q6 postop along with a 1dose of solucortef 50mg. * Blood cultures and urine cultures are sent postoperatively - negative so far. * On Zosyn 4.5 gm Q8hrs * Will follow up with white count and cultures. * He is febrile with Tmax of 101.8 Overnight. * on IV tylenol and cooling blankets. * Blood cultures are taken again today morning * Vee CT is negative for any fluid collections. Cardiovascular: New onset Atrial Fibriallation in the setting of sepsis postoperativey * OFF amiodarone drip and maintaining Normal sinus rhythm. Hematology: Right Cephalic vein thrombosis * Right arm found to have superficial thrombosis in right cephalic vein. * Could be a source of fever. * Warm compressors without any anticoagulation for now. * Had a peripheral line in that region at the time of surgery. Metabolic: JUANA * Today creatinine is 1.2 * Creatinine at the time of admission is 1.1 * Post op - increased to 1.3 then 1.5 * Expected to raise tomorrow as IV contrast used for Cat scan today. * I/O - positive balance. Alimentary: NPO with NG decompression Started on TPN today. Neurological: Intubated and sedated Skin: * Colostomy bag in place with drainage of around 100ml today. * Today had some pinkish discharge from the incision site. * Dressed well. DVT/Prophylaxis: me lovenox Code Status: Full Code Problem List: 1. Bronchospasm 2. Perforated abdominal viscus 3. Left inguinal hernia 4. Peritonitis 5. COPD (chronic obstructive pulmonary disease) 6. Dyslipidemia Pain Ratin Tomorrow's Labs & Rationales: ICU bundle CBC CXR ABG Plan DVT/Prophylaxis: sc lovenox Code Status: Full Code
[2016-12-09 08:00] VITALS: BP 98/58
--- NOTE | 2016-12-09 08:02 | RADIOLOGY REPORT ---
EXAMINATION: XR PORTABLE CHEST CLINICAL INFORMATION: Follow-up examination COMPARISON: 12/08/2016 TECHNIQUE: Portable view of the chest was obtained. FINDINGS: Endotracheal tube is present with tip approximately 5 cm above the fernando. Interval removal of the right internal jugular line. Left-sided PICC terminates in the region of the superior cavoatrial junction, unchanged. A nasogastric tube is noted, tip not visualized. Stable cardiomediastinal silhouette. No significant interval change in bibasilar airspace disease, left greater than right. No definite pleural effusion or pneumothorax. Osseous structures appear intact. IMPRESSION: Interval removal of the right internal jugular line. Otherwise, no significant interval change.
--- NOTE | 2016-12-09 08:06 | NUR ---
REC'D PT IN BED @194. FAMILY AT BEDSIDE. INTUBATED & VENTED ON AC MODE RATE 20/ VT 500/ FIO2 40%/ PEEP 5. POX RANGES FROM 94-100%, LS IN THE BEGINNIG OF THE SHIFT WAS RHONHUS TO R SIDE/DIMINISHED THROUGHOUT THE LOBES. SUCTIONED VIA ETT TK YELLOW SECRTEIONS. ORALLY SUCTIONED LG AMT OF SECRETIONS MOUTH CARE DONE. PT DID RESPONDS WHEN SUCTIONING MOVES HIS HEAD SIDE TO SIDE BUT NOT FOLLOWING COMMANDS. NGT TO R NARES INSITU & DRAINING YELLOW/GREENISH D/C TO LWS. FC INSITU & DRAINING WELL IN THE EVENINGS OF 600CC OF JUJU URINE & ON NIGHTD TRENDING DOWN W/TOTAL 300CC. INFORMED THE MD'S MANAV & SARAH RE. PT'S SECRETIONS VIA ETT DONE BY RT ED @4AM HAD MOD PINK FROTHY SECRETIONS. LS MORE CRACKLES TO R/MID SECTION & BASES OF HIS LUNG. CXR DONE PENDING FOR RESULT. TEMP FLUCTUATING FROM LOW 99.4 - TO T MAX 101.8. TYLENOL IV GIVEN SEE EMAR. COOL WASH, ICE PACKS TO AXILLA/ANA GROIN. LITTLE EFFECT W/COOLING THERAPY OF ICE PACK & TYLENOL. INFORMED DR. EM & DR. RIDER RE. PT'S STATUS. PLANS FOR TO DO FOOTE CX THIS AM. CONT TO MONITOR. REPORT GIVEN TO JENNIFER DIAZ.
--- NOTE | 2016-12-09 09:17 | PN- CRCU ---
Subjective HPI/Critical Care Issues: pt seen and examined 2.1L positive febrile overnight mechanical ventilation ros unobtainable wbc 15.4 creatinine 1.2 Objective Current Medications: Current Medications Sig/Ar Start time Last Medication Dose Route Stop Time Status Admin Acetaminophen 1,000 MG .STK-MED ONE 12/08 2142 DC IV 12/08 2143 Acetaminophen 1,000 MG .STK-MED ONE 12/08 1059 DC IV 12/08 1100 Acetaminophen 1,000 MG Q6P PRN 12/04 1945 AC 12/09 N/A 1 UNIT IV 0602 Albuterol Sulfate 3 ML EVERY 4 HRS/AWAKE 12/06 1600 AC 12/09 INH 0750 Dextrose/Sodium 1,000 ML Q13H 12/07 0915 DC 12/08 Chloride IV 1032 Dextrose/Water 1,000 ML Q13H 12/08 1300 AC 12/09 IV 0546 Fentanyl Citrate 1,000 MCG Q6H 12/09 0430 AC 12/09 Sodium Chloride 250 ML IV 0505 Fentanyl Citrate 1,000 MCG Q10H 12/04 1300 DC 12/08 Sodium Chloride 250 ML IV 2314 Heparin Sodium 5,000 UNIT Q8 12/02 2200 AC 12/09 (Porcine) SC 0549 Ipratropium [place] 2.5 ML EVERY 4 HRS/AWAKE 12/06 1600 AC 12/09 INH 0750 Lorazepam 1 MG Q2P PRN 12/03 1330 AC 12/08 IV 2110 Morphine Sulfate 2 MG Q3P PRN 12/04 1300 AC 12/08 IV 1127 Morphine Sulfate 4 MG Q3P PRN 12/02 1800 AC 12/04 IV 1259 Ondansetron HCl 4 MG Q6P PRN 12/02 1800 AC IV Pantoprazole Sodium 40 MG DAILY 12/02 2200 AC 12/08 IV 1031 Piperacillin Sod/ 4.5 GM Q8H 12/03 1400 AC 12/09 Tazobactam Sod IV 0552 Sodium Chloride 100 ML Potassium Chloride 20 MEQ Q1H 12/08 0830 DC 12/08 IV 12/08 0931 1000 Potassium Phosphate 15 mMol ONE ONE 12/09 0730 AC Dextrose/Water 250 ML IV 12/09 1133 Potassium Phosphate 15 mMol ONE ONE 12/08 0730 DC 12/08 Dextrose/Water 250 ML IV 12/08 1133 1101 Vital Signs & I&O Last 24 Hrs of Vitals and I&O: Vital Signs Date Time Temp Pulse Resp B/P Pulse O2 O2 Flow FiO2 Ox Delivery Rate 12/09 0818 40 12/09 0535 40 12/09 0400 97 Ventilator 40% 12/09 0321 40 12/09 0026 40 12/09 0022 100.8 12/09 0000 100.8 96 23 97/66 97 Ventilator 40% 12/09 0000 97 Ventilator 40% 12/08 2323 101.5 12/08 2209 40 12/08 2000 100 Ventilator 40% 12/08 1939 40 12/08 1614 40 12/08 1600 98.8 83 22 102/60 99 Ventilator 40% 12/08 1600 99 Ventilator 40% 12/08 1405 40 12/08 1202 40 12/08 1200 100.2 12/08 1200 96 Ventilator 40% 12/08 1101 101.0 Intake & Output 12/09 1600 12/09 0800 12/09 0000 Intake Total 1189 1042 Output Total 300 660 Balance 889 382 Intake, IV 1189 1042 Intake, Oral 0 Intake, Other 0 Output, 0 40 Gastric Drainage Output, Stool 0 20 Output, Urine 300 600 Exam Other Physical Findings: gen intubated heent ett cvs s1, s2 lungs transmitted abd diminished bs+ ext no edema Results Last 24 Hrs of Lab Results: Laboratory Tests 12/09/16 0800: pH 7.35, pCO2 22 L, pO2 137 H, HCO3 12 L, ABG O2 Sat (Measured) 99.0, P-50 ( Temp Corrected) YES, O2 Concentration % 40%, Temperature 100.8 H, Respiration Rate 20, O2 Delivery Method VENT, Vent Mode AC, Expiratory Pressure 5, Tidal Volume 500, Phlebotomy Draw Site RIGHT RADIAL 12/09/16 7847: Anion Gap 12, Estimated GFR 57 L, Glucose 105 H, Serum Osmolality 319 H, Calcium 7.3 L, Phosphorus 3.0, Magnesium 2.2, Total Bilirubin 1.2, AST 52, ALT 33, Albumin 1.8 L, CBC w Diff MAN DIFF ORDERED, RBC 3.97 L, MCV 84.1, MCH 28.0 , RDW 17.0 H, MPV 8.6, Gran % 87.1 H, Lymphocytes % 8.6 L, Monocytes % 3.6, Eosinophils % 0.3, Basophils % 0.4, Absolute Granulocytes 13.4 H, Segmented Neutrophils 76 H, Band Neutrophils 3, Absolute Lymphocytes 1.3, Lymphocytes 16 L, Monocytes 4, Absolute Monocytes 0.6, Eosinophils 1, Absolute Eosinophils 0, Absolute Basophils 0.1, Platelet Estimate ADEQUATE, Polychromasia 1+, Poikilocytosis 1+, Ovalocytes 1+, Stomatocytes FEW, PUBS MCHC 33.4, Fld Total RBCs Counted 100, Urine Osmolality 568 12/08/16 1833: Anion Gap 13, Estimated GFR 57 L, Glucose 102 H, Calcium 7.4 L, Phosphorus 3.4, Magnesium 2.2, Total Bilirubin 1.3, AST 53, ALT 39, Albumin 1.8 L 12/08/16 1500: Sodium Cancelled, Potassium Cancelled, Chloride Cancelled, Carbon Dioxide Cancelled, Anion Gap Cancelled, BUN Cancelled, Creatinine Cancelled, Glucose Cancelled, Calcium Cancelled, Phosphorus Cancelled, Magnesium Cancelled, Total Bilirubin Cancelled, AST Cancelled, ALT Cancelled, Albumin Cancelled 12/08/16 1300: Urine Osmolality 565 Impression/Plan Impression/Plan Impression/Plan: Impression 89 year old man * 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 for acute abdominal perforation * Respiratory failure with increased bibasilar opacities, maybe fluid overload * History of obstructive lung disease Plan Respiratory - Monitor chest x-rays and ABGs - TRC/Nebs ID - Zosyn, ID f/u, cx monitoring, fever/wbc monitoring - further re-imaging per ID/Surgery CVS - monitor hemodynamics - Superficial cephalic vein thrombosis will need warm compresses Heme - monitor cbc, coags Metabolic - ins/outs, sis improved Alimentary - NPO, per surgery - D5W for hypernatremia Neuro - sedation as necessary for comfort DVT prophylaxis at all times TTS 40 min Will continue to have ongoing discussion regarding goals of care. Code Status: Full Code
--- NOTE | 2016-12-09 09:49 | PN- Infect Dx ---
Subjective Subjective: MAXIMUM TEMPERATURE 101.8. Objective Last 24 Hrs of Vital Signs/I&O Vital Signs Date Time Temp Pulse Resp B/P Pulse O2 O2 Flow FiO2 Ox Delivery Rate 12/09 0818 40 12/09 0535 40 12/09 0400 97 Ventilator 40% 12/09 0321 40 12/09 0026 40 12/09 0022 100.8 12/09 0000 100.8 96 23 97/66 97 Ventilator 40% 12/09 0000 97 Ventilator 40% 12/08 2323 101.5 12/08 2209 40 12/08 2000 100 Ventilator 40% 12/08 1939 40 12/08 1614 40 12/08 1600 98.8 83 22 102/60 99 Ventilator 40% 12/08 1600 99 Ventilator 40% 12/08 1405 40 12/08 1202 40 12/08 1200 100.2 12/08 1200 96 Ventilator 40% 12/08 1101 101.0 Intake & Output 12/09 1600 12/09 0800 12/09 0000 Intake Total 1189 1042 Output Total 300 660 Balance 889 382 Intake, IV 1189 1042 Intake, Oral 0 Intake, Other 0 Output, 0 40 Gastric Drainage Output, Stool 0 20 Output, Urine 300 600 Physical Exam Other Physical Findings: He is awake on the ventilator Lungs rhonchi on the right Heart regular rhythm with no murmur Abdomen is distended, tender on palpation, with liquid stool in the colostomy, incision clean, with packing in the superior aspect Extremities 1+ edema both lower extremities; PICC in the left upper extremity; right upper extremity edema persists Edward catheter remains in place Results Last 24 Hours of Lab Results: Laboratory Tests 12/09 12/09 0840 0800 Blood Gas pH (7.35 - 7.45 PH) 7.35 pCO2 (35 - 45 TORR) 22 L pO2 (80 - 100 TORR) 137 H HCO3 (21 - 28 MEQ/L) 12 L ABG O2 Sat (Measured) (>96.0 %) 99.0 P-50 (Temp Corrected) YES O2 Concentration % 40% Temperature (97.0 - 100.0 FARH) 100.8 H Respiration Rate (BPM) 20 O2 Delivery Method VENT Vent Mode AC Expiratory Pressure (CMH2O/P) 5 Tidal Volume (CC) 500 Miscellaneous Phlebotomy Draw Site RIGHT RADIAL Urines Urine Color Pending Urine Clarity Pending Urine pH Pending Ur Specific Allred Pending Urine Protein Pending Urine Ketones Pending Urine Nitrite Pending Urine Bilirubin Pending Urine Urobilinogen Pending Ur Leukocyte Esterase Pending Ur Microscopic Pending Urine Hemoglobin Pending Urine Glucose Pending 12/09 12/08 12/08 1797 1833 1500 Chemistry Sodium (137 - 145 mmol/L) 149 H 149 H Cancelled Potassium (3.5 - 5.1 mmol/L) 4.0 3.9 Cancelled Chloride (98 - 107 mmol/L) 117 H 116 H Cancelled Carbon Dioxide (22 - 30 mmol/L) 20 L 20 L Cancelled Anion Gap (5 - 16) 12 13 Cancelled BUN (9 - 20 mg/dL) 37 H 39 H Cancelled Creatinine (0.7 - 1.2 mg/dL) 1.2 1.2 Cancelled Estimated GFR (>60 ml/min) 57 L 57 L Glucose (65 - 99 mg/dL) 105 H 102 H Cancelled Serum Osmolality (285 - 295 MOSM/KG) 319 H Calcium (8.4 - 10.2 mg/dL) 7.3 L 7.4 L Cancelled Phosphorus (2.5 - 4.5 mg/dL) 3.0 3.4 Cancelled Magnesium (1.6 - 2.3 mg/dL) 2.2 2.2 Cancelled Total Bilirubin (0.2 - 1.3 mg/dL) 1.2 1.3 Cancelled AST (17 - 59 U/L) 52 53 Cancelled ALT (21 - 72 U/L) 33 39 Cancelled Albumin (3.5 - 5.0 g/dL) 1.8 L 1.8 L Cancelled Hematology CBC w Diff MAN DIFF ORDERED WBC (4.8 - 10.8 /CUMM) 15.4 H RBC (4.70 - 6.10 /CUMM) 3.97 L Hgb (14.0 - 18.0 G/DL) 11.1 L Hct (42 - 52 %) 33.3 L MCV (80.0 - 94.0 FL) 84.1 MCH (27.0 - 31.0 PG) 28.0 RDW (11.5 - 14.5 %) 17.0 H Plt Count (130 - 400 /CUMM) 237 MPV (7.4 - 10.4 FL) 8.6 Gran % (42.2 - 75.2 %) 87.1 H Lymphocytes % (20.5 - 51.1 %) 8.6 L Monocytes % (1.7 - 9.3 %) 3.6 Eosinophils % (0 - 5 %) 0.3 Basophils % (0.0 - 2.0 %) 0.4 Absolute Granulocytes (1.4 - 6.5 /CUMM) 13.4 H Segmented Neutrophils (42.2 - 75.2 %) 76 H Band Neutrophils (0.0 - 5.0 %) 3 Absolute Lymphocytes (1.2 - 3.4 /CUMM) 1.3 Lymphocytes (20.5 - 51.1 %) 16 L Monocytes (1.7 - 9.3 %) 4 Absolute Monocytes (0.10 - 0.60 /CUMM) 0.6 Eosinophils (0 - 5.0 %) 1 Absolute Eosinophils (0.0 - 0.7 /CUMM) 0 Absolute Basophils (0.0 - 0.2 /CUMM) 0.1 Platelet Estimate (ADEQUATE) ADEQUATE Polychromasia 1+ Poikilocytosis 1+ Ovalocytes 1+ Stomatocytes FEW PUBS MCHC (33.0 - 37.0 G/DL) 33.4 Other Body Source Fld Total RBCs Counted (%) 100 Urines Urine Osmolality (300 - 1000 MOSM/KG) 568 12/08 1300 Urines Urine Osmolality (300 - 1000 MOSM/KG) 565 Last 24 Hours of [place] Results: Blood cultures 2 December 09 pending Urine culture December 09 pending Sputum culture December 09 pending, with gram stain revealing packed white blood cells, rare gram-negative rods and few budding yeast and hyphal elements Recent Imaging Studies: Chest x-ray December 09 no change in the bibasilar densities Assessment/Plan Impression: Persistent fevers with white blood cell count increasing despite treatment with Zosyn now Day 7 for peritonitis secondary to a perforated viscus status post Kirkland's procedure 7 days ago. Am concerned about the possibility of an intra- abdominal abscess and he will require a repeat CT scan. His incision was opened slightly yesterday, with mucopurulent material reported, increasing concern for a deeper infection. He has no other obvious source of sepsis, but he has been recultured this morning and can follow up these cultures. A noninfectious process, such as the cephalic vein thrombus noted on the recent right upper extremity Doppler, could explain a low-grade fever, but unlikely to explain the leukocytosis. Suggestion: 1. Would repeat CT of the abdomen and pelvis today 2. Further management of the cephalic vein thrombosis per Medicine/Surgery 3. Continue Zosyn
--- NOTE | 2016-12-09 14:59 | CT SCAN REPORT ---
EXAMINATION: CT HEAD WITHOUT CONTRAST CLINICAL INFORMATION: Evaluate for postoperative complication. Patient remained sedated and ventilated. COMPARISON: None. TECHNIQUE: Contiguous axial imaging was performed from the skull base to vertex without intravenous administration of contrast. DLP: 1022.33 mGy-cm. FINDINGS: Significantly limited evaluation secondary to motion and beam hardening artifact. There is no evidence of acute intracranial hemorrhage or gross territorial infarction. No abnormal mass effect or midline shift is seen. Pulido to white matter differentiation is well preserved. No extra-axial fluid collections are identified. Ventricles and sulci are prominent consistent with underlying volume loss. Calvarium is intact. Mild mucosal thickening is noted within the visualized paranasal sinuses. The mastoid air cells are clear. Carotid siphon calcifications are present. IMPRESSION: Significantly limited examination secondary to motion and beam hardening artifact. Within these limitations, there is no definite acute intracranial abnormality detected. No intracranial hemorrhage or mass effect.
--- NOTE | 2016-12-09 16:00 | CT SCAN REPORT ---
EXAMINATION: CT CHEST WITH CONTRAST CT ABDOMEN AND PELVIS WITH CONTRAST CLINICAL INFORMATION: Postoperative for infectious process. Evaluate for fluid pockets. COMPARISON: CT chest, abdomen and pelvis 12/05/2016. Chest x-ray 12/09/2016. TECHNIQUE: Multidetector volumetric images obtained through the chest, abdomen and pelvis after the administration of 95 mL of Optiray 320. Coronal and sagittal reformatted images performed at the CT scanner. DLP: 1904.85 mGy-cm FINDINGS: CHEST: Lungs: Bibasilar dependent atelectasis, greater on the left than right. Central bronchial airways are open. Compared to the prior CT scan, no substantial change. Mediastinum: Endotracheal tube present. Nasogastric tube coursing down into the stomach. No mass or significant lymphadenopathy. Borderline shotty lymph nodes in the mediastinum stable since prior CT scan 12/05/2016. There are calcified lymph nodes in the mediastinum and alonzo bilaterally consistent with old granulomatous disease. There is vascular calcification of the aorta and great vessels and of the coronary arteries. The ascending aorta measures 4.6 cm transverse. Pleura: Small to moderate volume bilateral pleural effusions. The volume of the effusion is greater on the left than the right. The effusions are free flowing dependent effusions without evidence for loculation. Compared to the prior CT scan, no substantial change in volume of the effusions. Axillae: No lymphadenopathy. ABDOMEN AND PELVIS: Liver, Gallbladder, and Biliary Tree: Stable hepatic cyst at the anterior inferior margin of the left lobe of the liver measuring 4 x 2 x 1.7 cm. No suspicious liver lesion. No intrahepatic bile duct dilatation. There are a few scattered calcified granulomata in the liver. The gallbladder is unremarkable with no evidence of radiopaque gallstones, gallbladder wall thickening, or obvious pericholecystic inflammatory changes. Pancreas: No acute change of the pancreas. No mass. No pancreatic duct dilatation. Spleen: Spleen normal in size and contour. No focal lesion. Adrenal Glands: Adrenal glands are normal in size. No focal mass. Kidneys and Ureters: The kidneys are normal in size, shape, and attenuation. No hydronephrosis, hydroureter, or calculi are seen. No perinephric stranding. Bladder: Edward catheter within the bladder. Gastrointestinal Tract: There is a descending colon colostomy in the left side of the abdomen. Henny's pouch in the lower pelvis. No dilated bowel loops. The mildly distended small bowel loops seen on the CT scan of 12/05/2016 with air-fluid levels have resolved. The previously seen marked thickening of the wall of the cecum, ascending colon and transverse colon has regressed, some thickening does remain. This is of uncertain significance in light of the fluid in the mesentery. Mesentery: Similar to the prior CT scan of 12/05/2016, there is stranding density of fluid in the mesentery with scattered pockets of fluid. In the upper abdomen, there is fluid seen around the spleen, the liver and the stomach and adjacent to the gallbladder fossa. In the mid abdomen, there are scattered pockets in the mesentery adjacent to multiple bowel loops. This includes a pocket near the sigmoid colon in the pelvis. There is fluid in the left inguinal canal extending into the scrotal sac. These collections were present on the prior exam of 12/05/2016 and have not substantially changed in size. These collections do not contain air. Abdominal Wall: Left-sided colostomy. Surgical skin clips at the midline abdominal incision. No dehiscence of the abdominal wall, no hernia. There is generalized anasarca. Bilateral inguinal hernias, contains fat on the right. There is fluid in the hernia on the left. Lymph Nodes: Normal. Vascular: Atherosclerotic vascular wall calcifications of the aorta and iliac vessels without aneurysm. Pelvic Viscera: Unremarkable. Osseous Structures: Multilevel degenerative change of the spine. Compression deformity of the T11 vertebra with osteosclerosis of the bone, unchanged since the prior study. Stable compression deformity of the superior endplate of L1 without sclerotic change of the bone. There is degenerative spondylosis of the spine. IMPRESSION: CT CHEST: Persistent bibasilar atelectasis and bilateral pleural effusions, similar to the prior CT scan 12/05/2016. CT ABDOMEN PELVIS: Persistent loculated fluid collections through the mesentery unchanged significantly in volume or size since the prior exam of 12/05/2016. The dilated small bowel loops on the CT scan of 12/05/2016 have resolved. There is decreasing colonic wall thickening since the prior CT scan. Patient has a left-sided colostomy without obstruction.
--- NOTE | 2016-12-09 21:20 | NUR ---
2000= TEMP 100.8 RECTAL, IV TYLENOL GIVEN, MD DAVISON AWARE. 2119=B/P 60/DOP MD DAVISON MADE AWARE, 500ML NS BOLUS ORDERED, FENTANYL TITRATED DOWN SAS 2-3.
[2016-12-10] VITALS: BP 112/60
[2016-12-10 04:55] LABS: ABSOLUTE BASOPHIL COUNT 0 /CUMM (0.0-0.2); ABSOLUTE EOSINOPHIL COUNT 0.1 /CUMM (0.0-0.7); ABSOLUTE GRANULOCYTE CT 14.3 /CUMM (1.4-6.5); ABSOLUTE LYMPH COUNT 1.3 /CUMM (1.2-3.4); ABSOLUTE MONOCYTE COUNT 0.4 /CUMM (0.10-0.60); BASOPHIL % 0 % (0.0-2.0); EOSINOPHIL % 0.5 % (0-5); GRANULOCYTE % 89.1 % (42.2-75.2); HEMATOCRIT 30.3 % (42-52); MEAN CORPUSCULAR HGB 28.4 PG (27.0-31.0); MEAN CORPUSCULAR HGB CONC 34.4 G/DL (33.0-37.0); MEAN CORPUSCULAR VOLUME 82.6 FL (80.0-94.0); MEAN PLATELET VOLUME 8.4 FL (7.4-10.4); PLATELET COUNT 231 /CUMM (130-400); RBC DISTRIBUTION WIDTH 16.7 % (11.5-14.5); RED BLOOD CELL CT 3.66 /CUMM (4.70-6.10); WHITE BLOOD CELL COUNT 16.1 /CUMM (4.8-10.8)
--- NOTE | 2016-12-10 05:46 | PN- General Surgery ---
See Addendum Subjective Subjective: The patient was seen this morning postoperatively day #8. He remains intubated but easily arousable. There are no significant issues overnight per nursing and the patient was started on TPN yesterday evening. He continues to have small amounts of stool-like material and fluid in his colostomy no significant gas. Objective Vital Signs and I&Os Vital Signs Date Time Temp Pulse Resp B/P Pulse O2 O2 Flow FiO2 Ox Delivery Rate 12/10 0400 96 Ventilator 35% 12/10 0329 100.8 12/10 0311 35 12/10 0213 100.7 12/10 0032 35 12/10 0000 96 Ventilator 35% 12/10 0000 100.0 78 21 112/60 96 Ventilator 35% 12/09 2156 35 12/09 2120 99.9 12/09 2001 100.7 12/09 2000 99 Ventilator 35% 12/09 1950 35 12/09 1623 35 12/09 1619 Ventilator 40% 12/09 1600 98 Ventilator 35% 12/09 1512 40 12/09 1200 98 Ventilator 35% 12/09 1142 40 12/09 0818 40 12/09 0800 98 Ventilator 40% 12/09 0800 101.1 88 20 98/58 98 Ventilator 40% 12/09 0701 101.1 Intake & Output 12/10 0800 12/10 0000 12/09 1600 12/09 0800 12/09 0000 12/08 1600 Intake Total 1449 1145 1189 1042 1109 Output Total 590 650 300 660 390 Balance 859 495 889 382 719 Intake, IV 1449 1145 1189 1042 1109 Intake, Oral 0 0 0 0 Intake, Other 0 Output, 0 50 0 40 60 Gastric Drainage Output, Stool 40 100 0 20 30 Output, Urine 550 500 300 600 300 Patient 250 lb 250 lb 236 lb Weight Physical Exam: Gen.: Intubated and easily arousable in no obvious distress Skin: Warm and dry Abdomen: Soft, distended, appropriate incisional tenderness, bowel sounds scant. Surgical incision with superior and inferior aspects open and a decent amount of mucopurulent drainage on the dressing. The colostomy is pink and viable with a small amount of fluid in the bag. There is also scrotal edema Extremities: Bilateral lower extremities are warm without calf tenderness and there is some trace edema Assessment/Plan Assessment/Plan Assessment: 89-year-old male status post exploratory laparotomy and Kirkland's procedure for perforated sigmoid colon postoperative day #8. The patient is making slow progression but still has somewhat of a postoperative ileus. The patient's surgical wound is draining purulent fluid as expected due to the nature of the perforation. Plan: Continue daily dry dressing changes as needed Keep nothing by mouth with NG tube decompression Advance TPN per nutritional recommendations GI and DVT prophylaxis Weaning trials IV antibiotics Continue care per pulmonary and critical care consultation recommendations Core Measures/Miscellaneous Edward Catheter Date In: 12/02/16 Venous Thromboembolism VTE Risk Factors: Acute medical illness, Age > 40, Surgery VTE Contraindications: No Contraindications VTE Prophylaxis Ordered Inpt Mech & Pharm VTE Diagnosis: No Beta Abelardo Is Beta Abelardo a Home Med? No Antibiotics Is Patient on Antibiotics? Yes If Yes: infection
[2016-12-10 08:00] VITALS: BP 150/82
--- NOTE | 2016-12-10 08:06 | PN- Resident CRCU ---
Subjective HPI/CRCU Issues: 1. Perforated sigmoid colon S/P exploratory laparotomy Post op day 7 2. Intubated and mechanically ventilated 3. Fevers with Tmax of 100.8 4. Mucopurulent discharge from the incision site. 24 Hour Events: I saw and examined the patient today. He is very mildly arousable, still intubated and sedated. Still spiking fevers. Appears more fluid overloaded. Today is able to drain lot of mucopurulent discharge from the incision site. Objective Vital Signs & I&O Last 8 Hrs of Vitals and I&O: VS Tmax of 100.8, HR 80's sinus rhythm BP - hypotensive in the middle of the night 90/doppler. 96/60mmHg On ventilator - AC 20, VT 500, FiO2 35%, PEEP 5cm. Exam General Appearance: sedated, intubated, obese Head: atraumatic, normal appearance Neck: normal inspection Respiratory: chest non-tender, no respiratory distress, transmitted sounds. Cardiovascular: regular rate/rhythm, normal peripheral pulses Gastrointestinal: minimal/no bowel sounds. Extremities: normal capillary refill, swelling Cranial Nerves: PERRL Skin: incision site dressed well. Weaning Parameters NIF: 42 Minute Volume: 13 Resp rate: 24 Vt: 520 Heart Rate: 107 Weaning Schedule Start Time: 0940 Minute Volume: 13 Resp Rate: 24 Vt: 520 Heart Rate: 107 Edward Still Needed? Yes IV Drips IV Drips: Fentanyl drip TPN @ 42ml/hr D5W@ 40ml/hr. Nutrition Nutrition: NPO Current Medications: Current Medications Sig/Ar Start time Last Medication Dose Route Stop Time Status Admin Acetaminophen 1,000 MG .STK-MED ONE 12/10 209 DC IV 12/10 021 Acetaminophen 1,000 MG .STK-MED ONE 12/09 1954 DC IV 12/09 1955 Acetaminophen 1,000 MG Q6P PRN 12/04 194 12/10 N/A 1 UNIT IV 0213 Albuterol Sulfate 3 ML EVERY 4 HRS/AWAKE 12/06 1600 AC 12/10 INH 1107 Dextrose/Water 1,000 ML Q13H 12/08 1300 DC 12/09 IV 0546 Fat Emulsion 325 ML 0 12/10 1900 AC Intravenous IV 12/11 1859 Fat Emulsion 250 ML 19012/09 1900 AC 12/09 Intravenous IV 12/10 Fentanyl Citrate 1,000 MCG Q6H 12/09 0430 DC 12/10 Sodium Chloride 250 ML IV 0213 Fentanyl Citrate 1,000 MCG Q20H 12/09 0000 AC Sodium Chloride 250 ML IV Heparin Sodium 5,000 UNIT Q8 12/02 2200 AC 12/10 (Porcine) SC 0510 Ipratropium [place] 2.5 ML EVERY 4 HRS/AWAKE 12/06 1600 AC 12/10 INH 1108 Lorazepam 1 MG Q2P PRN 12/03 1330 AC 12/10 IV 1031 Morphine Sulfate 2 MG Q3P PRN 12/04 1300 AC 12/08 IV 1127 Morphine Sulfate 4 MG Q3P PRN 12/02 1800 DC 12/04 IV 1259 Ondansetron HCl 4 MG Q6P PRN 12/02 1800 AC IV Pantoprazole Sodium 40 MG DAILY 12/02 2200 AC 12/10 IV 0936 Piperacillin Sod/ 4.5 GM Q8H 12/03 1400 AC 12/10 Tazobactam Sod IV 0506 Sodium Chloride 100 ML Potassium Phosphate 15 mMol ONE ONE 12/10 0730 DC 12/10 Dextrose/Water 250 ML IV 12/10 1133 1008 Sodium Chloride 500 ML BOLUS ONE 12/09 2130 DC 12/09 IV 12/09 2229 2122 Total Parenteral 1 UNIT 1900 12/10 190 Nutrition IV 12/11 185 Total Parenteral 1 UNIT 1900 12/09 1900 AC 12/09 Nutrition IV 12/10 Impression/Plan Impression/Problem List Impression: Patient is a 89-year-old male with past medical history significant for asthma, hypertension, bilateral inguinal hernia status post repair 30 years ago came to the hospital yesterday with acute abdominal pain. In the ER he was eventually found to have acute perforation of sigmoid colon with peritonitis, underwent emergent surgery with Henny's procedure. He was subsequently sent to ICU for hemodynamic stabilization, further care as patient is at high risk for infection /respiratory failure postextubation. Today he is still intubated and ventilated, slightly arousable and spiking fevers. Plan Respiratory: Intubated and mechanically ventilated * On fentanyl drip, levophed and mildly arousable. * ABG in the morning - pH of 7.35, PaCO2 22, PaO2 137, HCO3 12. History of respiratory infection * Patient had chronic productive cough which was recently evaluated with sputum cultures * It revealed growth of Kluyer ascorbata and klebsiella * He was subsequently started on ciprofloxacin and a steroid taper. * He is still taking prednisolone for bronchospasm before admission. Infectious Diseases: Spiking fevers (cultures negative so far) * Patient is at high risk for infection post operatively as his peritoneum is filled with fecal matter. * He was given unasyn 3gm Q6 postop along with a 1dose of solucortef 50mg. * Blood cultures and urine cultures are sent postoperatively - negative so far. * On Zosyn 4.5 gm Q8hrs * Will follow up with white count and cultures. * He is febrile with Tmax of 101.8 Overnight. * on IV tylenol and cooling blankets. * Blood cultures are taken again today morning * Vee CT is negative for any fluid collections. Cardiovascular: New onset Atrial Fibriallation in the setting of sepsis postoperativey * OFF amiodarone drip and maintaining Normal sinus rhythm. Hematology: Right Cephalic vein thrombosis * Right arm found to have superficial thrombosis in right cephalic vein. * Could be a source of fever. * Warm compressors without any anticoagulation for now. * Had a peripheral line in that region at the time of surgery. Metabolic: JUANA * Today creatinine is 1.2 * Creatinine at the time of admission is 1.1 * Post op - increased to 1.3 then 1.5 * Expected to raise tomorrow as IV contrast used for Cat scan today. * I/O - positive balance. Alimentary: NPO with NG decompression Started on TPN today. Neurological: Intubated and sedated Skin: * Colostomy bag in place with drainage of around 100ml today. * Today had some pinkish discharge from the incision site. * Dressed well. DVT/Prophylaxis: sc lovenox Code Status: Full Code Problem List: 1. Bronchitis 2. Bronchospasm 3. COPD (chronic obstructive pulmonary disease) 4. Peritonitis 5. Perforated abdominal viscus Pain Ratin Tomorrow's Labs & Rationales: ICU bundle CBC CXR ABG Plan DVT/Prophylaxis: sc lovenox Code Status: Full Code
--- NOTE | 2016-12-10 08:48 | RADIOLOGY REPORT ---
EXAMINATION: XR PORTABLE CHEST CLINICAL INFORMATION: Mechanically ventilated patient. Evaluate tube position. COMPARISON: CXR and chest CT from 12/09/2016. TECHNIQUE: Portable view of the chest was obtained. FINDINGS: Large body habitus. Endotracheal tube is in satisfactory position at 5.2 cm above the fernando. The tip of the left arm peripherally inserted catheter is difficult to visualize; it appears to terminate in the mid to distal superior vena cava. The endotracheal tube is also difficult to visualize; it appears to extend below the level of the diaphragm. There is persistent hazy opacity at the bases, likely representing a combination of small pleural effusions and atelectasis. The persistent linear, streaky opacity in the lingula is likely subsegmental atelectasis. Cardiac silhouette is enlarged. There is stable dilatation of the atherosclerotic aorta. No acute skeletal findings. IMPRESSION: 1. Cardiomegaly without acute pulmonary edema. 2. Persistent hazy opacities at the bases, likely combination of small pleural effusions with bibasilar atelectasis. There is subsegmental atelectasis in the lingula. 3. Endotracheal tube is in satisfactory position at 5.2 cm above the fernando.
--- NOTE | 2016-12-10 08:56 | PN- CRCU ---
See Addendum Subjective HPI/Critical Care Issues: pt seen and examined ros unobtainable - intubated, sedated normotensive mechanical ventilation bcx with GPCs resp cx with GNR febrile overnight head ct without obvious intracranial pathology Chest CT - atelectasis, bilateral effusions without change CT abd/pelvis with persistent loculated fluid collections through the mesentery Objective Vital Signs & I&O Last 24 Hrs of Vitals and I&O: Vital Signs Date Time Temp Pulse Resp B/P Pulse O2 O2 Flow FiO2 Ox Delivery Rate 12/10 0808 35 12/10 0549 35 12/10 0400 96 Ventilator 35% 12/10 0329 100.8 12/10 0311 35 12/10 0213 100.7 12/10 0032 35 12/10 0000 96 Ventilator 35% 12/10 0000 100.0 78 21 112/60 96 Ventilator 35% 12/09 2156 35 12/09 2120 99.9 12/09 2001 100.7 12/09 2000 99 Ventilator 35% 12/09 1950 35 12/09 1623 35 12/09 1619 Ventilator 40% 12/09 1600 98 Ventilator 35% 12/09 1512 40 12/09 1200 98 Ventilator 35% 12/09 1142 40 Intake & Output 12/10 1600 12/10 0800 12/10 0000 Intake Total 874 1449 Output Total 670 590 Balance 204 859 Intake, IV 874 1449 Intake, Oral 0 Output, 100 0 Gastric Drainage Output, Stool 20 40 Output, Urine 550 550 Impression/Plan Impression/Plan Impression/Plan: pt seen and examined ros unobtainable - intubated, sedated normotensive mechanical ventilation bcx with GPCs resp cx with GNR febrile overnight head ct without obvious intracranial pathology Chest CT - atelectasis, bilateral effusions without change CT abd/pelvis with persistent loculated fluid collections through the mesentery Impression 89 year old man * 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 for acute abdominal perforation * Respiratory failure with increased bibasilar opacities, maybe fluid overload * History of obstructive lung disease Plan Respiratory - Monitor chest x-rays and ABGs - TRC/Nebs ID - Zosyn, ID f/u, cx monitoring, fever/wbc monitoring - further re-imaging per ID/Surgery CVS - monitor hemodynamics - Superficial cephalic vein thrombosis will need warm compresses Heme - monitor cbc, coags Metabolic - ins/outs, sis improved Alimentary - NPO, per surgery - D5W for hypernatremia Neuro - sedation as necessary for comfort DVT prophylaxis at all times TTS 40 min Will continue to have ongoing discussion regarding goals of care. Consideration for OR for washout if feasible, this would however be high risk. Code Status: Full Code
--- NOTE | 2016-12-10 12:02 | PN- Infect Dx ---
Subjective Subjective: MAXIMUM TEMPERATURE 101.1. He remains sedated. His blood pressure has been stable off pressors. Objective Last 24 Hrs of Vital Signs/I&O Vital Signs Date Time Temp Pulse Resp B/P Pulse O2 O2 Flow FiO2 Ox Delivery Rate 12/10 1058 35 12/10 0808 35 12/10 0800 98 Ventilator 35% 12/10 0800 98.8 82 25 150/82 98 Ventilator 35% 12/10 0549 35 12/10 0400 96 Ventilator 35% 12/10 0329 100.8 12/10 0311 35 12/10 0213 100.7 12/10 0032 35 12/10 0000 96 Ventilator 35% 12/10 0000 100.0 78 21 112/60 96 Ventilator 35% 12/09 2156 35 12/09 2120 99.9 12/09 2001 100.7 12/09 2000 99 Ventilator 35% 12/09 1950 35 12/09 1623 35 12/09 1619 Ventilator 40% 12/09 1600 98 Ventilator 35% 12/09 1512 40 12/09 1200 98 Ventilator 35% 12/09 1142 40 Intake & Output 12/10 1600 12/10 0800 12/10 0000 Intake Total 874 1449 Output Total 670 590 Balance 204 859 Intake, IV 874 1449 Intake, Oral 0 Output, 100 0 Gastric Drainage Output, Stool 20 40 Output, Urine 550 550 Physical Exam Other Physical Findings: He is sedated, minimally responsive, on the ventilator Lungs are clear Heart regular rhythm with no murmur Abdomen is distended, tender to palpation, with clear liquid stool in the colostomy; superior aspect of the incision with purulent appearing drainage, with no surrounding erythema, Extremities edema of all extremities; PICC in the left upper extremity with no inflammation at the site Edward catheter remains in place Results Last 24 Hours of Lab Results: Laboratory Tests 12/10 0410 Chemistry Sodium (137 - 145 mmol/L) 148 H Potassium (3.5 - 5.1 mmol/L) 3.8 Chloride (98 - 107 mmol/L) 114 H Carbon Dioxide (22 - 30 mmol/L) 20 L Anion Gap (5 - 16) 13 BUN (9 - 20 mg/dL) 30 H Creatinine (0.7 - 1.2 mg/dL) 1.2 Estimated GFR (>60 ml/min) 57 L Glucose (65 - 99 mg/dL) 120 H Calcium (8.4 - 10.2 mg/dL) 7.4 L Phosphorus (2.5 - 4.5 mg/dL) 3.5 Magnesium (1.6 - 2.3 mg/dL) 2.2 Total Bilirubin (0.2 - 1.3 mg/dL) 1.0 AST (17 - 59 U/L) 46 ALT (21 - 72 U/L) 40 Albumin (3.5 - 5.0 g/dL) 1.8 L Hematology CBC w Diff MAN DIFF ORDERED WBC (4.8 - 10.8 /CUMM) 16.1 H RBC (4.70 - 6.10 /CUMM) 3.66 L Hgb (14.0 - 18.0 G/DL) 10.4 L Hct (42 - 52 %) 30.3 L MCV (80.0 - 94.0 FL) 82.6 MCH (27.0 - 31.0 PG) 28.4 RDW (11.5 - 14.5 %) 16.7 H Plt Count (130 - 400 /CUMM) 231 MPV (7.4 - 10.4 FL) 8.4 Gran % (42.2 - 75.2 %) 89.1 H Lymphocytes % (20.5 - 51.1 %) 7.8 L Monocytes % (1.7 - 9.3 %) 2.6 Eosinophils % (0 - 5 %) 0.5 Basophils % (0.0 - 2.0 %) 0 L Absolute Granulocytes (1.4 - 6.5 /CUMM) 14.3 H Segmented Neutrophils (42.2 - 75.2 %) 79 H Band Neutrophils (0.0 - 5.0 %) 6 H Absolute Lymphocytes (1.2 - 3.4 /CUMM) 1.3 Lymphocytes (20.5 - 51.1 %) 11 L Monocytes (1.7 - 9.3 %) 4 Absolute Monocytes (0.10 - 0.60 /CUMM) 0.4 Absolute Eosinophils (0.0 - 0.7 /CUMM) 0.1 Absolute Basophils (0.0 - 0.2 /CUMM) 0 Platelet Estimate (ADEQUATE) ADEQUATE Polychromasia 1+ Poikilocytosis 2+ Ovalocytes 1+ Stomatocytes 1+ PUBS MCHC (33.0 - 37.0 G/DL) 34.4 Other Body Source Fld Total RBCs Counted (%) 100 Last 24 Hours of [place] Results: Blood cultures December 09 one bottle positive for gram-positive cocci in clusters Urine culture December 09 negative Sputum culture December 09 positive for gram-negative rods and yeast Recent Imaging Studies: CT of the chest, abdomen and pelvis December 09 reveals persistent bibasilar atelectasis and bilateral pleural effusion; persistent loculated fluid collections through the mesentery unchanged compared to the previous exam of 06/2017; decreased colonic wall thickening compared to the prior CT; left sided colostomy without obstruction CT of the head December 09 no acute process Chest x-ray December 10 bibasilar densities unchanged Assessment/Plan Impression: Persistent fevers with white blood cell count continuing to increase despite treatment with Zosyn now Day 8 for peritonitis secondary to a perforated viscus status post Kirkland's procedure 8 days ago. He has several possible sources of fever including the abdominal wound, with purulent drainage easily expressible from the superior aspect of the incision, intra-abdominal abscess, with several fluid collections noted on the CT scan, though none are suspicious for abscesses and they have not changed from the previous CT, pneumonia, with sputum growing gram-negative rods, though his respiratory status has improved and CT of the chest does not suggest pneumonia, and line sepsis, status post recent right IJ catheter, with one blood culture positive for gram-positive cocci in clusters, though this may represent a contaminant. A noninfectious process, such as the cephalic vein thrombus noted on the recent right upper extremity Doppler, could explain a low-grade fever, but unlikely to explain the leukocytosis. Suggestion: 1. Further management of his incision eg to provide more effective drainage per Surgery 2. Will need to consider aspiration of the collections seen on CT scan if fevers persist despite above 3. Follow-up recent cultures 4. Discontinue Zosyn 5. Begin Vancomycin 1.5 g IV every 24 hours, Flagyl 500 mg IV every 8 hours and Ciprofloxacin 400 mg IV every 12 hours pending above
[2016-12-10 16:00] VITALS: BP 91/53
--- NOTE | 2016-12-10 16:00 | NUR ---
AUTOCUFF BP 91/53, MANUAL BP 84/DOP. DR. DAVISON AWARE; TO BEDSIDE TO ASSESS. 500ML NS BOLUS GIVEN ORDERED. FOR 1630; BP 95/61, FOR 1645; BP 109/60, SEE FLOW SHEET FOR FURTHER BP'S
[2016-12-11] VITALS: BP 148/68
[2016-12-11 06:01] LABS: ABSOLUTE BASOPHIL COUNT 0 /CUMM (0.0-0.2); ABSOLUTE EOSINOPHIL COUNT 0.1 /CUMM (0.0-0.7); ABSOLUTE GRANULOCYTE CT 10.6 /CUMM (1.4-6.5); ABSOLUTE LYMPH COUNT 0.9 /CUMM (1.2-3.4); ABSOLUTE MONOCYTE COUNT 0.2 /CUMM (0.10-0.60); BASOPHIL % 0.2 % (0.0-2.0); EOSINOPHIL % 0.8 % (0-5); GRANULOCYTE % 90.1 % (42.2-75.2); HEMATOCRIT 30.3 % (42-52); MEAN CORPUSCULAR HGB 28.6 PG (27.0-31.0); MEAN CORPUSCULAR HGB CONC 34.4 G/DL (33.0-37.0); MEAN CORPUSCULAR VOLUME 83.2 FL (80.0-94.0); MEAN PLATELET VOLUME 9.4 FL (7.4-10.4); PLATELET COUNT 189 /CUMM (130-400); RBC DISTRIBUTION WIDTH 16.6 % (11.5-14.5); RED BLOOD CELL CT 3.65 /CUMM (4.70-6.10); WHITE BLOOD CELL COUNT 11.8 /CUMM (4.8-10.8)
--- NOTE | 2016-12-11 06:11 | PN- General Surgery ---
See Addendum Subjective Subjective: INTUBATED ON FENTANYL GTT APPEARS MORE DELERIOUS THIS AM NOT FOLLOWING COMMANDS ABDOMINAL WOUND OPENED AT TOP AND BOTTOM OF WOUND BY DR IRVING AT BED SIDE LAST EVENING AND IRRIGATED WITH SALINE AND PACKED WITH IODOFORM GAUGE CONTINUES TO HAVE MUCOPURULENT DRAINAGE THIS AM Objective Vital Signs and I&Os Vital Signs Date Time Temp Pulse Resp B/P Pulse O2 O2 Flow FiO2 Ox Delivery Rate 12/11 0555 35 12/11 0527 100.2 12/11 0404 100.7 12/11 0400 98 Ventilator 35% 12/11 0311 35 12/11 0046 35 12/11 0000 100.9 80 22 148/68 95 Ventilator 35% 12/11 0000 95 Ventilator 35% 12/10 2232 100.9 12/10 2224 35 12/10 2119 101.1 12/10 2000 100 Ventilator 35% 12/10 1951 35 12/10 1600 97.9 12/10 1600 97 Ventilator 35% 12/10 1600 97.9 75 20 91/53 97 Ventilator 35% 12/10 1557 35 12/10 1459 101.0 12/10 1328 35 12/10 1200 98 Ventilator 35% 12/10 1058 35 12/10 0808 35 12/10 0800 98 Ventilator 35% 12/10 0800 98.8 82 25 150/82 98 Ventilator 35% Intake & Output 12/11 0800 12/11 0000 12/10 1600 12/10 0800 12/10 0000 12/09 1600 Intake Total 1800.0 1016.8 874 1449 1145 Output Total 550 990 670 590 650 Balance 1250.0 26.8 204 859 495 Intake, IV 1349 292 779 6192 1145 Intake, Lipid 89.0 83.2 Intake, Oral 0 0 0 Intake, 362 333.6 TPN/PPN Number 0 Bowel Movements Output, 150 100 0 50 Gastric Drainage Output, Stool 40 20 40 100 Output, Urine 550 800 550 550 500 Patient 234 lb 250 lb Weight Physical Exam: ABD: STOMA PINK NO ESCHEMIA NOTED LIQUID STOOL IN OSTOMY ABDOMEN MORE DISTENED THIS AM COPIUS AMOUNT OF MUCOPURULENT DRAINAGE ON BANDAGE FROM OPENED WOUND AREAS DISTENDED AND DIFFUSELY TENDER EXT: +2 EDEMA THROUGH, WARM, GOOD PULSES ANN: CLEAR URINE Assessment/Plan Assessment/Plan S/P BEDSIDE WOUND IRRIGATION REMAINS GUARDED PLAN CONT IV ABX F/U AM LABS PARENTERAL NUTRITION CLOSE OBSERVATION Core Measures/Miscellaneous Ann Catheter Date In: 12/02/16 Venous Thromboembolism VTE Risk Factors: Acute medical illness, Age > 40, Surgery VTE Contraindications: No Contraindications VTE Prophylaxis Ordered Inpt Mech & Pharm VTE Diagnosis: No Beta Abelardo Is Beta Abelardo a Home Med? No Antibiotics Is Patient on Antibiotics? Yes If Yes: infection
--- NOTE | 2016-12-11 07:30 | RADIOLOGY REPORT ---
EXAMINATION: XR PORTABLE CHEST CLINICAL INFORMATION: tube position. Intubated and mechanically ventilated. COMPARISON: December 10, 2016 TECHNIQUE: Portable view of the chest was obtained. FINDINGS: Study somewhat limited due to underpenetration and lordotic technique. There is some ill-defined density in the retrocardiac region which may relate to atelectasis. No pneumothorax or significant pleural effusion identified. The heart is upper limits of normal in size. No evidence of pulmonary edema. Left upper extremity PICC line is seen with tip in the lower superior vena cava. Endotracheal tube is in place with tip approximately 4 cm above the fernando. IMPRESSION: Endotracheal tube approximately 4 cm above the fernando. 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 No evidence of pulmonary edema.
[2016-12-11 08:00] VITALS: BP 150/64
--- NOTE | 2016-12-11 08:05 | NUR ---
REC'D THE PT ORALLY INTUBATED AND MECHANICALLY VENTILATED PER MD ORDER. PT REMAINS ON THE FENTANYL GTT AT 112.4MCG/HR OR 28.1ML/HR INFUSING VIA THE CLAUDIO PORT OF THE BILLY PICC. SAS IS A 4, DOES NOT FOLLOW COMMANDS. PT IS IN A NSR WITHOUT ECTOPY PER THE TECHNICAL SUPPORT PROFESSIONAL. GENERALIZED 3+ EDEMA,INCLUDING THE SCROTUM NOTED. ANA BS WITH RHONCHI AND DIMINISHED AT THE BASES, SUCTIONED FOR MODERATE WHITE THIN TO FROTHY SECRETIONS. ORAL CARE PROVIDED. ABD IS FIRM-NO BOWEL SOUNDS HEARD. NGT IN PLACE TO THE R NARE TO LWS DRAINING SMALL AMOUNTS OF GREEN FLUID. L SIDE COLOSTOMY PRESENT WITH LG PINK STOMA, DRAINING SEROUS MATERIAL, HOWEVER,SM AOUNTS OLD STOOL PRESENT IN THE OSTOMY BAG. ANN IN PLACE DRAINING IN EXCESS OF 100ML/HR CLEAR YELLOW URINE. DRESSING TO MIDLINE ABD IS CLEAN, DRY AND INTACT.
--- NOTE | 2016-12-11 08:30 | NUR ---
PT'S TEMP INCREASED FROM 101 TO 101.5 VIA THE RECTAL PROBE FROM THE COOLING BLANKET, NOT DUE FOR TYLENOL SO THE COOLING BLANKET WAS INITITIATED AT THIS TIME. BP IS IN THE HIGH 160'S TO 180'S. FENTANYL INCREASED TO 125MCG/HR OR 31.3ML/HR AT THIS TIME. SAS IS A 4.
--- NOTE | 2016-12-11 11:22 | NUR ---
THERE IS NO BLOOD RETURN NOTED FROM THE RED PORT OF THE BILLY TRIPLE LUMEN PICC. PT HAD TO RECEIVE AM FLAGYL/PROTONIX AND IV TYLENOL FIRST. NO PROBLEM WITH FLUSHING THE PORT. ALTEPLASE 2MG IV INSTILLED AT 1050. PORT LABELED DO NOT USE.
--- NOTE | 2016-12-11 11:58 | PN- CRCU ---
Subjective HPI/Critical Care Issues: Intubated Still tachypneic Continues to be on fentanyl Not following commands does open his eyes however on command Abdominal wound open at the top and bottom of the wound by surgery yesterday and irrigated and packed with Karen form gauze Continues to have mucopurulent discharge Review of symptoms could not be obtained Continues to be febrile Significantly elevated minute ventilation Objective Current Medications: Current Medications Sig/Ar Start time Last Medication Dose Route Stop Time Status Admin Acetaminophen 1,000 MG Q6P PRN 12/04 1945 12/11 N/A 1 UNIT IV 1019 Albuterol Sulfate 3 ML EVERY 4 HRS/AWAKE 12/06 1600 AC 12/11 INH 1137 Alteplase, 2 MG ONE ONE 12/11 0545 DC 12/11 Recombinant IV 12/11 0546 1049 Ciprofloxacin 400 MG Q12H 12/11 0300 AC 12/11 Dextrose/Water 200 ML IV 0226 Ciprofloxacin 400 MG Q12 12/10 1258 DC 12/10 Dextrose/Water 200 ML IV 1452 Fat Emulsion 325 ML 1900 12/10 1900 AC 12/10 Intravenous IV 12/11 1859 2040 Fat Emulsion 250 ML 1900 12/09 1900 IN 12/09 Intravenous IV 12/10 1859 2001 Fentanyl Citrate 1,000 MCG Q6H 12/11 0600 AC 12/11 Sodium Chloride 250 ML IV 0532 Fentanyl Citrate 1,000 MCG Q20H 12/09 0000 DC 12/10 Sodium Chloride 250 ML IV 2118 Heparin Sodium 5,000 UNIT Q8 12/02 2200 AC 12/11 (Porcine) SC 0530 Ipratropium [place] 2.5 ML EVERY 4 HRS/AWAKE 12/06 1600 AC 12/11 INH 1138 Lorazepam 1 MG Q2P PRN 12/03 1330 DC 12/10 IV 1031 Metronidazole 500 MG IQ8 12/10 1600 AC 12/11 N/A 1 UNIT IV 0831 Morphine Sulfate 2 MG Q3P PRN 12/04 1300 AC 12/08 IV 1127 Ondansetron HCl 4 MG Q6P PRN 12/02 1800 AC IV Pantoprazole Sodium 40 MG DAILY 12/02 2200 AC 12/11 IV 1019 Piperacillin Sod/ 4.5 GM Q8H 12/03 1400 DC 12/10 Tazobactam Sod IV 0506 Sodium Chloride 100 ML Sodium Chloride 500 ML BOLUS ONE 12/10 1630 DC 12/10 IV 12/10 1729 1615 Total Parenteral 1 UNIT 1900 12/10 1900 AC 12/10 Nutrition IV 12/11 1859 2041 Total Parenteral 1 UNIT 1900 12/09 1900 DC 12/09 Nutrition IV 12/10 1859 2000 Vancomycin HCl 1,500 MG DAILY 12/11 1300 AC Dextrose/Water 250 ML IV Vancomycin HCl 1,500 MG ONCE ONE 12/10 1300 DC 12/10 Dextrose/Water 250 ML IV 12/10 1359 1452 Vital Signs & I&O Last 24 Hrs of Vitals and I&O: Vital Signs Date Time Temp Pulse Resp B/P Pulse O2 O2 Flow FiO2 Ox Delivery Rate 12/11 1019 100.2 12/11 0800 35 12/11 0800 100 Ventilator 35% 12/11 0800 101.0 90 23 150/64 100 Ventilator 35% 12/11 0555 35 12/11 0527 100.2 12/11 0404 100.7 12/11 0400 98 Ventilator 35% 12/11 0311 35 12/11 0046 35 12/11 0000 100.9 80 22 148/68 95 Ventilator 35% 12/11 0000 95 Ventilator 35% 12/10 2232 100.9 12/10 2224 35 12/10 2119 101.1 12/10 2000 100 Ventilator 35% 12/10 1951 35 12/10 1600 97.9 12/10 1600 97 Ventilator 35% 12/10 1600 97.9 75 20 91/53 97 Ventilator 35% 12/10 1557 35 12/10 1459 101.0 12/10 1328 35 12/10 1200 98 Ventilator 35% Intake & Output 12/11 1600 12/11 0800 12/11 0000 Intake Total 1359.0 1800.0 Output Total 660 550 Balance 699.0 1250.0 Intake, IV 863 1349 Intake, Lipid 93.0 89.0 Intake, Oral 0 Intake, 403 362 TPN/PPN Number 0 Bowel Movements Output, 50 Gastric Drainage Output, Stool 20 Output, Urine 590 550 Patient 234 lb Weight Impression/Plan Impression/Plan Impression/Plan: Pupils reacting intubated sedated Heart S1 and S2 is heard irregular rhythm Lungs are clear, with crackles Heart regular rhythm with no murmurominal stoma pink no ischemia Liquid stool in the ostomy Abdominal exam little distended Copious amount of mucopurulent drainage on bandage from open wound areas, diffusely tender abdomen Extremity 2+ edema Has Edward catheter, PICC line IMPRESSION This is an 89-year-old gentleman with the mild obstructive restrictive lung disease with previous pneumonia now status post 6 laparotomy with sigmoid colectomy with colostomy after an abdominal perforation with respiratory failure with pneumonia with mild fluid overload. Issues include * Acute respiratory failure related to sepsis, mild pulmonary edema with pneumonia with high minute ventilation * Sig perforation with status post surgery, open abdominal wound with significant infection, with intra abd fluid collection * Patient is high-risk for Systemic Elo * Previous obstructive restrictive lung disease with no significant wheezing * On going fever with Gram-positive and gram-negative, ongoing infection * Patient is nothing by mouth on TPN, with abx and open abd high risk for systemic elo * Small left pleural effusion with trapped lung which needs to be investigated in the future if he gets worse for empyema on the left side * Cephalic vein thrombosis RECOMMENDATION Continue mechanical ventilator Increase tidal volume to 550 Intravenous Lasix 2 doses today if patient can tolerate Blood cultures for fungal cultures Surgery to decide whether he would need to have these fluid collections aspirated Continue broad-spectrum antibiotics Add low-dose Ativan Continue fentanyl for now Recheck INR We will follow closely Patient is critically ill prognosis is very guarded discussed with family Total time spent 60 minutes Code Status: Full Code
--- NOTE | 2016-12-11 12:20 | NUR ---
THE PT'S TEMP DECREASED TO 98.9 AT 1200-COOLING BLANKET TURNED OFF. IN ADDITION, THE PT'S BP HAS BEEN IN THE 150'S TO 180'S AND IS MOVING HEAD SIDE TO SIDE IN A RESTLESS MANNER. FENTANYL INCREASED TO 137.MCG/HR AT 1200. IN ADDITION, THE TIDAL VOLUME WAS INCREASED TO 550 BY INSEAM TRIMMER PER DR DURANT.
--- NOTE | 2016-12-11 13:16 | PN- Resident CRCU ---
Subjective HPI/CRCU Issues: Patient seen and examined. He is seen lying flat in bed intubated on a ventilator with multiple lines in place. He appears to be in mild respiratory distress. He is accompanied by multiple family members at his bedside whom are up to date about his clinical condition and have no questions at this time. Review of systems is unobtainable at this time. No overnight events reported. Objective Vital Signs & I&O Last 8 Hrs of Vitals and I&O: Vitals: - Temperature: 99.6-101.0 - Heart Rate: 76-96 - Respiratory Rate: 10-26 - Systolic Blood pressure: 116-159 - Diastolic Blood pressure: 46-102 - Oxygen Saturation: 95-100% on 35% FiO2 Exam General Appearance: anxious, intubated, mild distress, obese Other Physical Findings: General -ill-appearing elderly male in mild respiratory distress, bilateral upper extremity soft restraints HEENT - NCAT, PERRL, EOMI, anicteric sclera, endotracheal tube, NG tube Cardio - S1, S2 w/o murmurs/gallops/rubs Resp - CTA bilaterally w/o wheezing/rhochi/crackles GI - midline surgical incision site with clear serosanginuous drainage, well healing stoma with minimal amout of fecal matter in ostomy bag, - Edward catheter in place Neuro - sedated but agitated and restless Extremities - anasara with 2+ edema in all four extremities, diminished distal pulses, PICC line Weaning Parameters NIF: 42 Minute Volume: 13 Resp rate: 24 Vt: 520 Heart Rate: 107 Weaning Schedule Start Time: 0940 Minute Volume: 13 Resp Rate: 24 Vt: 520 Heart Rate: 107 Current Medications: Current Medications Sig/Ar Start time Last Medication Dose Route Stop Time Status Admin Acetaminophen 1,000 MG .STK-MED ONE 12/11 0356 DC IV 12/11 0357 Acetaminophen 1,000 MG Q6P PRN 12/04 1945 AC 12/11 N/A 1 UNIT IV 1019 Albuterol Sulfate 3 ML EVERY 4 HRS/AWAKE 12/06 1600 AC 12/11 INH 1137 Alteplase, 2 MG ONE ONE 12/11 1315 UNVr Recombinant IV 12/11 1316 Alteplase, 2 MG ONE ONE 12/11 0545 DC 12/11 Recombinant IV 12/11 0546 1049 Ciprofloxacin 400 MG Q12H 12/11 0300 AC 12/11 Dextrose/Water 200 ML IV 0226 Ciprofloxacin 400 MG Q12 12/10 1258 DC 12/10 Dextrose/Water 200 ML IV 1452 Fat Emulsion 325 ML 1900 12/11 1900 AC Intravenous IV 12/12 1859 Fat Emulsion 325 ML 1900 12/10 1900 AC 12/10 Intravenous IV 12/11 1859 2040 Fat Emulsion 250 ML 1900 12/09 1900 DC 12/09 Intravenous IV 12/10 1852000 Fentanyl Citrate 1,000 MCG Q6H 12/11 0600 AC 12/11 Sodium Chloride 250 ML IV 1256 Fentanyl Citrate 1,000 MCG Q20H 12/09 0000 DC 12/10 Sodium Chloride 250 ML IV 2118 Furosemide 40 MG ONCE ONE 12/11 1300 DC 12/11 IV 12/11 1301 1312 Heparin Sodium 5,000 UNIT Q8 12/02 2200 AC 12/11 (Porcine) SC 0530 Ipratropium [place] 2.5 ML EVERY 4 HRS/AWAKE 12/06 1600 AC 12/11 INH 1138 Lorazepam 1 MG Q4P PRN 12/11 1300 AC IV Lorazepam 1 MG Q2P PRN 12/03 1330 DC 12/10 IV 1031 Metronidazole 500 MG IQ8 12/10 1600 AC 12/11 N/A 1 UNIT IV 0831 Morphine Sulfate 2 MG Q3P PRN 12/04 1300 DC 12/08 IV 1127 Ondansetron HCl 4 MG Q6P PRN 12/02 1800 AC IV Pantoprazole Sodium 40 MG DAILY 12/02 2200 AC 12/11 IV 1019 Sodium Chloride 500 ML BOLUS ONE 12/10 1630 DC 12/10 IV 12/10 1729 1615 Total Parenteral 1 UNIT 19012/11 1900 AC Nutrition IV 12/11 1901 Total Parenteral 1 UNIT 1900 12/10 1900 AC 12/10 Nutrition IV 12/11 1859 2041 Total Parenteral 1 UNIT 1900 12/09 1900 DC 12/09 Nutrition IV 12/10 1859 2000 Vancomycin HCl 1,500 MG DAILY 12/11 1300 AC 12/11 Dextrose/Water 250 ML IV 1313 Vancomycin HCl 1,500 MG ONCE ONE 12/10 1300 DC 12/10 Dextrose/Water 250 ML IV 12/10 1359 1452 Impression/Plan Impression/Problem List Impression: Patient continues to be maintained on fentanyl for sedation while intubated on a ventilator. Vancomycin, ciprofloxacin, and Flagyl were started yesterday and Zosyn was discontinued. Patient remains febrile on these medications however demonstrates improved leukocytosis. Blood cultures were taken today to assess for further bacterial or disseminated fungal infection. Ativan was added to help with agitation as needed. He was given a dose of intravenous Lasix for his grossly edematous appearance. A second dose may be given the this evening should he remain hemodynamically stable. Problem List: - Perforated sigmoid colon, s/p surgical repair - Peritonitis, on Vanco/Cipro/Flagyl Gastrointestinal/Infectious Disease: Perforated sigmoid colonic complicated with peritonitis. No OR cultures taken. -Protonix 40mg IV Daily -Zofran 4mg IV Q6H PRN Nausea -Vancomycin 1,500mg IV Daily -Ciprofloxacin 400mg IV Q12H -Flagyl 500mg IV Q8H -Colostomy bag in place with adequate drainage Respiratory: History of asthma. Intubated on ventilator s/p surgical repair of his perforated sigmoid colon. - Minimally responsive to verbal/tactile stimuli - Intubated on ventilator - Daily CXR, ABG - Fentanyl drip for sedation Metabolic: Sepsis in the setting of perforated sigmoid colon. - Antibiotics as above - Acetaminophen 1g IV Q6H PRN - Fever - Ativan 1mg PRN - F/U C&S Pain Plan: - Morphine 2mg IV Q3H PRN - PAIN 4-6 - Morphine 4mg IV Q3H PRN - PAIN 7-10 Diet - TPN & Lipids DVT Prophylaxis - sc lovenox Code Status - Full Code Problem List: 1. Perforated abdominal viscus Pain Ratin Tomorrow's Labs & Rationales: CBC ICU bundle INR CXR ABG Plan DVT/Prophylaxis: sc lovenox Code Status: Full Code DVT Prophylaxis - sc lovenox Code Status - Full Code Problem List: 1. Perforated abdominal viscus Pain Ratin Tomorrow's Labs & Rationales: CBC ICU bundle INR CXR ABG Plan DVT/Prophylaxis: sc lovenox Code Status: Full Code
--- NOTE | 2016-12-11 13:25 | NUR ---
ALTEPLASE 2MG INSTILLED AT 1050, AT [address]OD RETURN OBTAINED. DR Lien HUGHES NOTIFIED AND A SECOND DOSE OF ALTEPLASE ORDERED. AWAITING ARRIVAL FROM PHARMACY.
[2016-12-11 15:04] LABS: PT 13.3 SEC (9.4-12.5)
[2016-12-11 16:00] VITALS: BP 160/80
--- NOTE | 2016-12-11 16:00 | NUR ---
PT HAD SECOND DOSE OF ALTEPLASE 2MG IV INSTILLED AT 1430. OF 1500 THERE IS NOW BLOOD RETURN FROM THE RED PORT. THE FENTANYL GTT WAS INCREASED TO 150MCG/MIN AT THIS TIME THE PT'S BP IS IN THE 180'S AND THE PT IS RESTLESS.
[2016-12-12] VITALS: BP 118/64
--- NOTE | 2016-12-12 | NUR ---
PATIENT AROUSE TO TACTILE STIMULI. ETT TO VENTILATOR AT 35%. SECRETIONS SUH IN COLOR. MIDLINE ABDOMINAL DRESSING INTACT. COLOSTOMY STOMA PINK,DRAINAGE SUH IN COLOR. 0030:AUTO CUFF READS 85/49.PT SEDATED BUT RESPONSIVE. 0045:MANUAL BP=80/DOP.FENTANYL DRIP PLACED IN HOLD. MADE AWARE.500 ML NS BOLUS STARTED. 0120 MANUAL BP 120/80. 0202:BP DECREASED TO 75/46 AUTO CUFF WHEN FENTANYL DRIP RESTARTED.FENTANYL DRIP ON HOLD AT THIS TIME.
--- NOTE | 2016-12-12 05:35 | Event Note ---
Event Note Event Note: Situation: * Hypotension Brief: * BP 75/45 at 1 AM * Despite holding off fentanyl blood pressure did not respond * Patient had received 4 mg IV Lasix early in the afternoon with significant diuresis * Bolused 500 mL 1 with noticeable improvement in BP A/P: * Started fentanyl at 50 g * Ativan 0.5 IV intermittently for agitation with gradual titration up of fentanyl by 12.5 g increments
--- NOTE | 2016-12-12 05:39 | PN- General Surgery ---
See Addendum Subjective Subjective: POD #11 s/p Hartmans procedure for perforated sigmoid colon. Patient remains intubated, sedated with fentanyl gtt. Febrile to 101.2F at 2300. Became acutely hypotensive overnight (0100), fentanyl drip weaned. Blood pressure normalized after 500ml bolus. Remains on TPN for nutritional support. Attempts made yesterday to diurese patient with lasix 40 mg IV x1 (given around 1315). Objective Vital Signs and I&Os Vital Signs Date Time Temp Pulse Resp B/P Pulse O2 O2 Flow FiO2 Ox Delivery Rate 12/12 0258 35 12/12 0100 35 12/12 0000 100.4 12/11 2256 101.2 12/11 2203 35 12/11 1952 35 12/11 1600 35 12/11 1600 100 Ventilator 35% 12/11 1600 100.2 91 25 160/80 100 Ventilator 35% 12/11 1407 35 12/11 1200 95 Ventilator 35% 12/11 1154 35 12/11 1115 99.6 12/11 1019 100.2 12/11 0800 35 12/11 0800 100 Ventilator 35% 12/11 0800 101.0 90 23 150/64 100 Ventilator 35% 12/11 0555 35 Intake & Output 12/12 0800 12/12 0000 12/11 1600 12/11 0800 12/11 0000 12/10 1600 Intake Total 1361 1359.0 1800.0 1016.8 Output Total 2375 660 550 990 Balance -1014 699.0 1250.0 26.8 Intake, IV 2446 177 9067 600 Intake, Lipid 93.0 89.0 83.2 Intake, Oral 0 0 Intake, 403 362 333.6 TPN/PPN Number 0 Bowel Movements Output, 50 150 Gastric Drainage Output, Stool 50 20 40 Output, Urine 2325 590 550 800 Patient 234 lb Weight Physical Exam: Gen: Intubated, sedated with fentanyl Cor: S1+S2+ Lungs: upper airway congestion. Coarse breath sounds phil. Abd: soft, distended, incision with mild surrounding erythema, draining mackay mucopurulent discharge from openings in incision. Stoma pink, engorged. Ext: trace edema to bilateral lower extremities UOP: 2325/2445/470+ ostomy: 50/50/- Current Medications: Current Medications Sig/Ar Start time Last Medication Dose Route Stop Time Status Admin Acetaminophen 1,000 MG .STK-MED ONE 12/11 0832 DC IV 12/11 0833 Acetaminophen 1,000 MG Q6P PRN 12/04 1945 12/11 N/A 1 UNIT IV 2256 Albuterol Sulfate 3 ML EVERY 4 HRS/AWAKE 12/06 1600 AC 12/11 INH 2141 Alteplase, 2 MG ONE ONE 12/11 1315 DC 12/11 Recombinant IV 12/11 1316 1426 Alteplase, 2 MG ONE ONE 12/11 0545 DC 12/11 Recombinant IV 12/11 0546 1049 Ceftriaxone Sodium 1,000 MG DAILY@1900 12/11 1900 AC 12/11 IV 2109 Ciprofloxacin 400 MG Q12H 12/11 0300 DC 12/11 Dextrose/Water 200 ML IV 1541 Fat Emulsion 325 ML 1900 12/11 1900 AC 12/11 Intravenous IV 12/12 1859 2052 Fat Emulsion 325 ML 1900 12/10 1900 DC 12/10 Intravenous IV 12/11 1859 2040 Fentanyl Citrate 1,000 MCG Q6H 12/11 0600 AC 12/12 Sodium Chloride 250 ML IV 0000 Furosemide 40 MG ONCE ONE 12/11 1300 DC 12/11 IV 12/11 1301 1312 Heparin Sodium 5,000 UNIT Q8 12/02 2199 AC 12/11 (Porcine) SC 2124 Ipratropium [place] 2.5 ML EVERY 4 HRS/AWAKE 12/06 1600 AC 12/11 INH 2142 Lorazepam 0.5 MG Q4P PRN 12/12 0230 AC 12/12 IV 0401 Lorazepam 1 MG Q4P PRN 12/11 1300 DC 12/11 IV 1555 Metronidazole 500 MG IQ8 12/10 1600 AC 12/11 N/A 1 UNIT IV 2329 Morphine Sulfate 2 MG Q3P PRN 12/04 1300 DC 12/08 IV 1127 Ondansetron HCl 4 MG Q6P PRN 12/02 1800 AC IV Pantoprazole Sodium 40 MG DAILY 12/02 220 AC 12/11 IV 1019 Petrolatum 1 CECY DAILY NEEDED PRN 12/11 2215 AC 12/11 OPH 2257 Petrolatum 1 UNIT DAILY NEEDED PRN 12/11 1430 DC OPH Potassium Chloride 20 MEQ Q1H 12/11 2330 DC 12/12 IV 12/12 0031 0324 Sodium Chloride 500 ML BOLUS ONE 12/12 0115 DC 12/12 IV 12/12 0214 0221 Total Parenteral 1 UNIT 12/11 DC 12/11 Nutrition IV 12/11 Total Parenteral 1 UNIT 12/10 DC 12/10 Nutrition IV 12/11 Vancomycin HCl 1,500 MG DAILY 12/11 1300 DC 12/11 Dextrose/Water 250 ML IV 1313 Results Last 48 Hours of Labs: Laboratory Tests 12/11 160 1400 Blood Gas pH (7.35 - 7.45 PH) 7.40 pCO2 (35 - 45 TORR) 32 L pO2 (80 - 100 TORR) 108 H HCO3 (21 - 28 MEQ/L) 19 L ABG O2 Sat (Measured) (>96.0 %) 97.0 P-50 (Temp Corrected) Y Carboxyhemoglobin (1.5 - 5.0 %) 0.3 L O2 Concentration % 35% Temperature (97.0 - 100.0 FARH) 100.8 H Respiration Rate (BPM) 20 O2 Delivery Method ESPRIT Vent Mode AC Expiratory Pressure (CMH2O/P) 5 Tidal Volume (CC) 550 Chemistry Sodium (137 - 145 mmol/L) 145 Cancelled Potassium (3.5 - 5.1 mmol/L) 3.5 Cancelled Chloride (98 - 107 mmol/L) 110 H Cancelled Carbon Dioxide (22 - 30 mmol/L) 24 Cancelled Anion Gap (5 - 16) 11 Cancelled BUN (9 - 20 mg/dL) 25 H Cancelled Creatinine (0.7 - 1.2 mg/dL) 1.0 Cancelled Estimated GFR (>60 ml/min) > 60 Glucose (65 - 99 mg/dL) 137 H Cancelled Calcium (8.4 - 10.2 mg/dL) 7.2 L Cancelled Phosphorus (2.5 - 4.5 mg/dL) 4.0 Cancelled Magnesium (1.6 - 2.3 mg/dL) 1.9 Cancelled Total Bilirubin (0.2 - 1.3 mg/dL) 0.8 Cancelled AST (17 - 59 U/L) 47 Cancelled ALT (21 - 72 U/L) 30 Cancelled Albumin (3.5 - 5.0 g/dL) 1.8 L Cancelled Coagulation PT (9.4 - 12.5 SEC) 13.3 H INR (0.90 - 1.17) 1.27 H Miscellaneous Phlebotomy Draw Site LEFT RADIAL 12/11 0568 Chemistry Sodium (137 - 145 mmol/L) 145 Potassium (3.5 - 5.1 mmol/L) 4.1 Chloride (98 - 107 mmol/L) 115 H Carbon Dioxide (22 - 30 mmol/L) 19 L Anion Gap (5 - 16) 12 BUN (9 - 20 mg/dL) 27 H Creatinine (0.7 - 1.2 mg/dL) 0.9 Estimated GFR (>60 ml/min) > 60 Glucose (65 - 99 mg/dL) 147 H Calcium (8.4 - 10.2 mg/dL) 7.0 L Phosphorus (2.5 - 4.5 mg/dL) 3.9 Magnesium (1.6 - 2.3 mg/dL) 2.1 Total Bilirubin (0.2 - 1.3 mg/dL) 0.9 AST (17 - 59 U/L) 44 ALT (21 - 72 U/L) 33 Albumin (3.5 - 5.0 g/dL) 1.7 L Prealbumin (17.6 - 36.0 mg/dL) < 3.0 L Triglycerides (<150 mg/dL) 173 H Hematology CBC w Diff MAN DIFF ORDERED WBC (4.8 - 10.8 /CUMM) 11.8 H RBC (4.70 - 6.10 /CUMM) 3.65 L Hgb (14.0 - 18.0 G/DL) 10.4 L Hct (42 - 52 %) 30.3 L MCV (80.0 - 94.0 FL) 83.2 MCH (27.0 - 31.0 PG) 28.6 RDW (11.5 - 14.5 %) 16.6 H Plt Count (130 - 400 /CUMM) 189 MPV (7.4 - 10.4 FL) 9.4 Gran % (42.2 - 75.2 %) 90.1 H Lymphocytes % (20.5 - 51.1 %) 7.4 L Monocytes % (1.7 - 9.3 %) 1.5 L Eosinophils % (0 - 5 %) 0.8 Basophils % (0.0 - 2.0 %) 0.2 Absolute Granulocytes (1.4 - 6.5 /CUMM) 10.6 H Segmented Neutrophils (42.2 - 75.2 %) 73 Band Neutrophils (0.0 - 5.0 %) 5 Absolute Lymphocytes (1.2 - 3.4 /CUMM) 0.9 L Lymphocytes (20.5 - 51.1 %) 16 L Monocytes (1.7 - 9.3 %) 4 Absolute Monocytes (0.10 - 0.60 /CUMM) 0.2 Eosinophils (0 - 5.0 %) 1 Absolute Eosinophils (0.0 - 0.7 /CUMM) 0.1 Basophils (0.0 - 2.0 %) 1 Absolute Basophils (0.0 - 0.2 /CUMM) 0 Platelet Estimate (ADEQUATE) ADEQUATE Hypochromic-Microcytic 1+ PUBS MCHC (33.0 - 37.0 G/DL) 34.4 Assessment/Plan Assessment/Plan A: POD #11 s/p Hartmans procedure for perforated sigmoid colon due to incarcerated inguinal hernia. Remains intubated, sedated, still having post operative fevers despite broad spectrum IV antibiotics (Vanco/Cipro/Flagyl). Patient high risk for candidemia, awaiting blood cultures drawn yesterday for results. Plan: Continue daily and prn dressing changes to abdominal incision, with open areas packed with 1/2 inch gauze. Continue TPN/lipids for nutritional support. Will likely change to TFs once output from ostomy increases. Consider treating empirically for candidemia with addition of diflucan IV. Await blood cultures from yesterday. Continue Vanco/Cipro/Flagyl. Weaning trials per critical care team. F/U am labwork. ? need for washout in OR with continued turbid fluid from wound. Team to discuss with Dr. Adkins today. Core Measures/Miscellaneous Edward Catheter Date In: 12/02/16 Venous Thromboembolism VTE Risk Factors: Acute medical illness, Age > 40, Surgery VTE Contraindications: No Contraindications VTE Prophylaxis Ordered Inpt Mech & Pharm VTE Diagnosis: No Beta Abelardo Is Beta Abelardo a Home Med? No Antibiotics Is Patient on Antibiotics? Yes If Yes: infection
[2016-12-12 06:29] LABS: ABSOLUTE BASOPHIL COUNT 0 /CUMM (0.0-0.2); ABSOLUTE EOSINOPHIL COUNT 0.1 /CUMM (0.0-0.7); ABSOLUTE GRANULOCYTE CT 10.9 /CUMM (1.4-6.5); ABSOLUTE LYMPH COUNT 1.2 /CUMM (1.2-3.4); ABSOLUTE MONOCYTE COUNT 0.6 /CUMM (0.10-0.60); BASOPHIL % 0.1 % (0.0-2.0); EOSINOPHIL % 0.5 % (0-5); GRANULOCYTE % 85.4 % (42.2-75.2); MEAN CORPUSCULAR HGB 28.1 PG (27.0-31.0); MEAN CORPUSCULAR HGB CONC 34.3 G/DL (33.0-37.0); MEAN CORPUSCULAR VOLUME 82.1 FL (80.0-94.0); MEAN PLATELET VOLUME 8.6 FL (7.4-10.4); PLATELET COUNT 250 /CUMM (130-400); RBC DISTRIBUTION WIDTH 16.5 % (11.5-14.5); RED BLOOD CELL CT 3.66 /CUMM (4.70-6.10)
[2016-12-12 06:31] LABS: PT 14.4 SEC (9.4-12.5)
[2016-12-12 06:49] LABS: WHITE BLOOD CELL COUNT 12.8 /CUMM (4.8-10.8)
[2016-12-12 08:00] VITALS: BP 148/76
--- NOTE | 2016-12-12 08:00 | NUR ---
REC'D THE PT ORALLY INTUBATED AND MECHANICALLY VENTILATED PER MD ORDER. PT'S BP WAS IN THE HIGH 160'S AND WAS RESTLESSLY MOVING HIS HEAD BACK AND FORTH. PER DR BECK THE FENTANYL GTT WAS INCREASED FROM 62.4MCG/HR TO 75MCG/HR OR 18.8ML AT 0745. PT HAS CALMED SOMEWHAT AND HIS BP IS NOW 139/68 VIA THE AUTOCUFF. BW RESTRAINTS REMAIN IN PLACE TO PREVENT THE PT FROM REMOVING LINES AND TUBES. OPENS EYES TO TACTILE STIMULI BUT DOES NOT FOLLOW COMMANDS. PT IS IN A NSR WITHOUT ECTOPY PER THE AIRCRAFT MACHINIST HELPER. BILLY PICC REMAINS IN PLACE WITH GOOD BLOOD RETURN FROM THE RED PORT. THE FENTANYL IS INFUSING VIA THE CLAUDIO PORT AND THE TPN/LIPIDS ARE INFUSING VIA THE WHITE PORT. ANA BS ARE RHONCHOROUS AND DIMINISHED AT THE BASES. SUCTIONED FOR MOD AMOUNTS OF THICK WHITE SPUTUM. ABD IS DISTENDED AND FIRM WITHOUT BOWEL SOUNDS. NGT VIA R NARES TO LWS DRAINING SMALL AMOUNTS OF GREEN FLUID. COLOSTOMY TO L SIDE OF ABD WITH PINK STOMA, DRAINING THICK SEROUS FLUID. ANN IN PLACE DRAINING CLEAR YELLOW URINE. RUE REMAINS EDEMATOUS WITH 2+ WEEPING EDEMA, ELEVATED ON PILLOWS.
--- NOTE | 2016-12-12 08:54 | RADIOLOGY REPORT ---
EXAMINATION: XR PORTABLE CHEST CLINICAL INFORMATION: Intubated on ventilator. COMPARISON: Multiple prior studies most recently 12/11/2016. TECHNIQUE: Portable AP 90 degrees upright FINDINGS: The ET tube tip terminates 2.4 cm above the fernando. The enteric tube extends below diaphragm, tip not visualized. The cardiac silhouette is mildly enlarged. No visualized pleural effusions. Increased mid and upper left lung airspace opacity is identified. The right lung is clear. There is moderate vascular congestion. IMPRESSION: Increased left airspace opacity is identified which may reflect atypical pulmonary edema or pneumonia. No appreciable pleural effusion. The cardiac silhouette is mildly enlarged.
--- NOTE | 2016-12-12 09:06 | PN- Resident CRCU ---
Subjective HPI/CRCU Issues: 1. Perforated sigmoid colon S/P exploratory laparotomy Post op day 7 2. Intubated and mechanically ventilated 3. Fevers with Tmax of 101.4 4. Laparotomy drainage of intraperitoneal abscess abdominal washout 24 Hour Events: I saw and examined the patient today morning. He went to OR today for a repeat drainage - tolerated the procedure well. After the procedure he came to ICU, placed on Herber drain in the abdomen and Aaron-Khan drain incision atrial region. Doing better now. Objective Vital Signs & I&O Last 8 Hrs of Vitals and I&O: Intake & Output 12/12 1600 Intake Total Output Total Balance Patient 110.762 kg Weight Vital signs Febrile with a MAXIMUM TEMPERATURE of 101.4 Heart rate 85-19 sinus rhythm Blood pressure 120/80 mmHg, 80 by Doppler in the middle of the night- received 500 bolus On mechanical ventilation Assist-control 20, tidal volume 550, FiO2 35%, PEEP 5 cm of water Ins and outs - 4127/5720 Exam General Appearance: alert, awake, intubated, mild distress Head: atraumatic, normal appearance Respiratory: chest non-tender, transmitted sounds present Cardiovascular: regular rate/rhythm, normal peripheral pulses Gastrointestinal: normal bowel sounds, distention, tenderness Extremities: normal inspection, pedal edema, swelling Cranial Nerves: PERRL Skin: Incision site dressed well JIAN drain in herniated region and [place] drain between bowels. Weaning Parameters NIF: 42 Minute Volume: 13 Resp rate: 24 Vt: 520 Heart Rate: 107 Weaning Schedule Start Time: 0940 Minute Volume: 13 Resp Rate: 24 Vt: 520 Heart Rate: 107 PICC Site: left upper extremity Date In: 12/07/16 Need for Catheter TPN Edward Still Needed? Yes IV (Peripheral) Still Needed? Yes IV Drips IV Drips: Fentanyl TPN Nutrition Nutrition: NPO, TPN rate Current Medications: Current Medications Sig/Ar Start time Last Medication Dose Route Stop Time Status Admin Acetaminophen 1,000 MG .STK-MED ONE 12/12 0850 DC IV 12/12 0851 Acetaminophen 1,000 MG .STK-MED ONE 12/11 2224 DC IV 12/11 2225 Acetaminophen 1,000 MG Q6P PRN 12/04 1945 AC 12/12 N/A 1 UNIT IV 0933 Albuterol Sulfate 3 ML EVERY 4 HRS/AWAKE 12/06 1600 AC 12/12 INH 1627 Ceftriaxone Sodium 1,000 MG DAILY@1900 12/11 1900 AC 12/12 IV 1832 Fat Emulsion 325 ML 1900 12/12 1900 CAN Intravenous IV 12/13 185 Fat Emulsion 375 ML 1900 12/12 1900 AC 12/12 Intravenous IV 12/13 1859 1832 Fat Emulsion 325 ML 1900 12/11 1900 AC 12/11 Intravenous IV 12/12 185 205 Fat Emulsion 325 ML 1900 12/10 1900 DC 12/10 Intravenous IV 12/11 185 2040 Fentanyl Citrate 1,000 MCG Q13H 12/12 0815 AC 12/12 Sodium Chloride 250 ML IV 1054 Fentanyl Citrate 1,000 MCG Q6H 12/11 0600 DC 12/12 Sodium Chloride 250 ML IV 0000 Furosemide 10 MG Q8 12/12 1045 AC 12/12 IV 1053 Heparin Sodium 5,000 UNIT Q8 12/02 2200 AC 12/12 (Porcine) SC 0614 Ipratropium [place] 2.5 ML EVERY 4 HRS/AWAKE 12/06 1600 AC 12/12 INH 1627 Lorazepam 0.5 MG Q4P PRN 12/12 0230 AC 12/12 IV 0401 Lorazepam 1 MG Q4P PRN 12/11 1300 DC 12/11 IV 1555 Metronidazole 500 MG IQ8 12/10 1600 AC 12/12 N/A 1 UNIT IV 1647 Ondansetron HCl 4 MG Q6P PRN 12/02 1800 AC IV Pantoprazole Sodium 40 MG DAILY 12/02 2200 AC 12/12 IV 1005 Petrolatum 1 CECY DAILY NEEDED PRN 12/11 2215 AC 12/11 OPH 2257 Petrolatum 1 UNIT DAILY NEEDED PRN 12/11 1430 DC OPH Potassium Chloride 20 MEQ Q1H 12/12 0845 DC 12/12 IV 12/12 0946 1113 Potassium Chloride 20 MEQ Q1H 12/11 2330 DC 12/12 IV 12/12 0031 0324 Sodium Chloride 500 ML BOLUS ONE 12/12 0115 DC 12/12 IV 12/12 0214 0221 Total Parenteral 1 UNIT 1900 12/12 1900 AC 12/12 Nutrition IV 12/13 1859 1832 Total Parenteral 1 UNIT 1900 12/11 1900 DC 12/11 Nutrition IV 12/11 1902054 Total Parenteral 1 UNIT 1900 01/13 1900 DC 12/10 Nutrition IV 12/11 Antibiotics Antibiotic: ceftriaxone and falgyl Day #: 2 IV/PO? IV Results Cultures: Culture: respiratory Date: 12/09/16 Isolate: E.Coli CXR Findings: IMPRESSION: Increased left airspace opacity is identified which may reflect atypical pulmonary edema or pneumonia. No appreciable pleural effusion. The cardiac silhouette is mildly enlarged. Impression/Plan Impression/Problem List Impression: Patient is a 89-year-old male with past medical history significant for asthma, hypertension, bilateral inguinal hernia status post repair 30 years ago came to the hospital yesterday with acute abdominal pain. In the ER he was eventually found to have acute perforation of sigmoid colon with peritonitis, underwent emergent surgery with Henny's procedure. He was subsequently sent to ICU for hemodynamic stabilization, further care as patient is at high risk for infection /respiratory failure postextubation. Today he is still intubated and ventilated, slightly arousable and spiking fevers. Plan Respiratory: Intubated and mechanically ventilated * On fentanyl drip, levophed and mildly arousable. * ABG in the morning - pH of 7.40, PaCO2 32, PaO2 108, HCO3 19. History of respiratory infection * Patient had chronic productive cough which was recently evaluated with sputum cultures * It revealed growth of Kluyer ascorbata and klebsiella * He was subsequently started on ciprofloxacin and a steroid taper. * He is still taking prednisolone for bronchospasm before admission. Infectious Diseases: Spiking fevers * Patient is at high risk for infection post operatively as his peritoneum is filled with fecal matter. * He is febrile with Tmax of 101.4 Overnight. * Started on IV ceftriaxone and Flagyl x day 2. * on IV tylenol and cooling blankets. * Cultures-respiratory on December 09 are positive for Escherichia coli * Underwent repeat laparotomy today with pus draining from 2 regions. * OR cultures are sent. Cardiovascular: New onset Atrial Fibriallation in the setting of sepsis postoperativey * OFF amiodarone drip and maintaining Normal sinus rhythm. Hematology: Right Cephalic vein thrombosis * Right arm found to have superficial thrombosis in right cephalic vein. * Could be a source of fever. * Warm compressors without any anticoagulation for now. * Had a peripheral line in that region at the time of surgery. Metabolic: JUANA * Resolved, Today creatinine is 1.0 * Creatinine at the time of admission is 1.1 * Post op - increased to 1.3 then 1.5 * I/O - 4127/5720 * Placed on furosemide 10 mg every 8 IV Alimentary: * NPO with NG decompression * TPN - day 4. * Repeat laparotomy today - drained pus from left inguinal region and between the bowels. * Bowel sounds present, doing well now Neurological: Intubated and sedated Skin: * Colostomy bag in place with active drainage * After the procedure today placed on JIAN drain and [place] drain. * Dressed well. DVT/Prophylaxis: sc lovenox Code Status: Full Code Problem List: 1. Left inguinal hernia 2. Peritonitis 3. Asthma exacerbation Pain Ratin Tomorrow's Labs & Rationales: Ventilator bundle ICU bundle CBC Chest x-ray ABG Plan DVT/Prophylaxis: sc lovenox Code Status: Full Code
--- NOTE | 2016-12-12 09:29 | PN- Infect Dx ---
Subjective Subjective: MAXIMUM TEMPERATURE 101.6. His blood pressure dropped yesterday afternoon after Lasix. His incision was irrigated and opened on December 10 and again yesterday. Objective Last 24 Hrs of Vital Signs/I&O Vital Signs Date Time Temp Pulse Resp B/P Pulse O2 O2 Flow FiO2 Ox Delivery Rate 12/12 0805 35 12/12 0552 35 12/12 0400 97 Ventilator 35% 12/12 0258 35 12/12 0100 35 12/12 0000 100.4 12/12 0000 100.6 82 20 118/64 96 Ventilator 35% 12/12 0000 96 Ventilator 35% 12/11 2256 101.2 12/11 2203 35 12/11 2000 99 Ventilator 35% 12/11 1952 35 12/11 1600 35 12/11 1600 100 Ventilator 35% 12/11 1600 100.2 91 25 160/80 100 Ventilator 35% 12/11 1407 35 12/11 1200 95 Ventilator 35% 12/11 1154 35 12/11 1115 99.6 12/11 1019 100.2 Intake & Output 12/12 1600 12/12 0800 12/12 0000 Intake Total 1469 1297 Output Total 810 2535 Balance 659 -1238 Intake, IV 1469 1297 Output, 100 40 Gastric Drainage Output, Stool 20 50 Output, Urine 690 2445 Physical Exam Other Physical Findings: He is sedated on Fentanyl, responsive only to pain Lungs scattered rhonchi Heart regular rhythm with no murmur Abdomen is distended, incision with purulent appearing fluid expressed upon minimal palpation; colostomy with liquid stool Extremities edema of all 4 extremities; PICC in the left upper extremity with no inflammation at the site Edward catheter remains in place Results Last 24 Hours of Lab Results: Laboratory Tests 12/12 12/11 12/11 0530 2029 1913 Chemistry Sodium (137 - 145 mmol/L) 146 H 145 Cancelled Potassium (3.5 - 5.1 mmol/L) 3.9 3.5 Cancelled Chloride (98 - 107 mmol/L) 109 H 110 H Cancelled Carbon Dioxide (22 - 30 mmol/L) 23 24 Cancelled Anion Gap (5 - 16) 13 11 Cancelled BUN (9 - 20 mg/dL) 25 H 25 H Cancelled Creatinine (0.7 - 1.2 mg/dL) 1.0 1.0 Cancelled Estimated GFR (>60 ml/min) > 60 > 60 Glucose (65 - 99 mg/dL) 143 H 137 H Cancelled Calcium (8.4 - 10.2 mg/dL) 7.1 L 7.2 L Cancelled Phosphorus (2.5 - 4.5 mg/dL) 3.7 4.0 Cancelled Magnesium (1.6 - 2.3 mg/dL) 1.9 1.9 Cancelled Total Bilirubin (0.2 - 1.3 mg/dL) 0.7 0.8 Cancelled AST (17 - 59 U/L) 46 47 Cancelled ALT (21 - 72 U/L) 38 30 Cancelled Albumin (3.5 - 5.0 g/dL) 1.8 L 1.8 L Cancelled Coagulation PT (9.4 - 12.5 SEC) 14.4 H INR (0.90 - 1.17) 1.38 H Hematology CBC w Diff NO MAN DIFF REQ WBC (4.8 - 10.8 /CUMM) 12.8 H RBC (4.70 - 6.10 /CUMM) 3.66 L Hgb (14.0 - 18.0 G/DL) 10.3 L Hct (42 - 52 %) 30.0 L MCV (80.0 - 94.0 FL) 82.1 MCH (27.0 - 31.0 PG) 28.1 RDW (11.5 - 14.5 %) 16.5 H Plt Count (130 - 400 /CUMM) 250 MPV (7.4 - 10.4 FL) 8.6 Gran % (42.2 - 75.2 %) 85.4 H Lymphocytes % (20.5 - 51.1 %) 9.6 L Monocytes % (1.7 - 9.3 %) 4.4 Eosinophils % (0 - 5 %) 0.5 Basophils % (0.0 - 2.0 %) 0.1 Absolute Granulocytes (1.4 - 6.5 /CUMM) 10.9 H Absolute Lymphocytes (1.2 - 3.4 /CUMM) 1.2 Absolute Monocytes (0.10 - 0.60 /CUMM) 0.6 Absolute Eosinophils (0.0 - 0.7 /CUMM) 0.1 Absolute Basophils (0.0 - 0.2 /CUMM) 0 PUBS MCHC (33.0 - 37.0 G/DL) 34.3 01/14 01/14 1605 1400 Blood Gas pH (7.35 - 7.45 PH) 7.40 pCO2 (35 - 45 TORR) 32 L pO2 (80 - 100 TORR) 108 H HCO3 (21 - 28 MEQ/L) 19 L ABG O2 Sat (Measured) (>96.0 %) 97.0 P-50 (Temp Corrected) Y Carboxyhemoglobin (1.5 - 5.0 %) 0.3 L O2 Concentration % 35% Temperature (97.0 - 100.0 FARH) 100.8 H Respiration Rate (BPM) 20 O2 Delivery Method ESPRIT Vent Mode AC Expiratory Pressure (CMH2O/P) 5 Tidal Volume (CC) 550 Coagulation PT (9.4 - 12.5 SEC) 13.3 H INR (0.90 - 1.17) 1.27 H Miscellaneous Phlebotomy Draw Site LEFT RADIAL Last 24 Hours of [place] Results: Blood cultures December 09 1 bottle positive for coag-negative Staph Blood cultures 2 December 11 negative Sputum culture December 09 positive for Escherichia coli sensitive to Ceftriaxone and Gentamicin and resistant to Ciprofloxacin Urine culture December 09 negative Recent Imaging Studies: Chest x-ray December 12 increased left airspace opacity Assessment/Plan Impression: Persistent fevers most likely secondary to a surgical site infection, either related to the incision, with purulent fluid continuing to drain, versus an intra-abdominal abscess, with multiple collections seen on the recent CT scan, now 10 days status post Kirkland's procedure for peritonitis secondary to a perforated viscus. Options include opening the incision further at the bedside or returning to the OR, which would allow evaluation of the collections seen on the recent CT. The collections seen on the recent CT scan could also represent infection and may also require further evaluation, for example aspiration, if his fevers persist. He is now on Ceftriaxone and Flagyl, with recent sputum culture positive for Escherichia coli sensitive to Ceftriaxone, though suspect this may just represent colonization as his respiratory status is stable. The 1 blood culture positive for coag negative Staph presumably represents a contaminant as the second set remains negative. Suggestion: 1. Await surgical follow-up for further management of his incision and decision regarding surgery 2. Will need to consider aspiration of the collections seen on CT scan if fevers persist despite above 3. Continue Ceftriaxone and Flagyl
--- NOTE | 2016-12-12 09:42 | PN- CRCU ---
Subjective HPI/Critical Care Issues: MAXIMUM TEMPERATURE 101.6. His blood pressure dropped yesterday afternoon after Lasix. His incision was irrigated and opened on December 10 and again yesterday. Intubated and sedated Unable to give history ROs could not be obtained Cont to be febrile HAs sig frothy secretions Objective Current Medications: Current Medications Sig/Ar Start time Last Medication Dose Route Stop Time Status Admin Acetaminophen 1,000 MG .STK-MED ONE 12/11 2224 DC IV 12/11 2225 Acetaminophen 1,000 MG Q6P PRN 12/04 1945 12/12 N/A 1 UNIT IV 0933 Albuterol Sulfate 3 ML EVERY 4 HRS/AWAKE 12/06 1600 12/12 INH 0819 Alteplase, 2 MG ONE ONE 12/11 1315 DC 12/11 Recombinant IV 12/11 1316 1426 Ceftriaxone Sodium 1,000 MG DAILY@1900 12/11 1900 AC 12/11 IV 2109 Ciprofloxacin 400 MG Q12H 12/11 0300 HI 12/11 Dextrose/Water 200 ML IV 1541 Fat Emulsion 325 ML 1900 12/11 1900 AC 12/11 Intravenous IV 12/12 1859 2052 Fat Emulsion 325 ML 1900 12/10 1900 HI 12/10 Intravenous IV 12/11 1859 2040 Fentanyl Citrate 1,000 MCG Q13H 12/12 0815 AC Sodium Chloride 250 ML IV Fentanyl Citrate 1,000 MCG Q6H 12/11 0600 DC 12/12 Sodium Chloride 250 ML IV 0000 Furosemide 40 MG ONCE ONE 12/11 1300 DC 12/11 IV 12/11 1301 1312 Heparin Sodium 5,000 UNIT Q8 12/02 2200 12/12 (Porcine) SC 0614 Ipratropium [place] 2.5 ML EVERY 4 HRS/AWAKE 12/06 1600 12/12 INH 0819 Lorazepam 0.5 MG Q4P PRN 12/12 0230 12/12 IV 0401 Lorazepam 1 MG Q4P PRN 12/11 1300 DC 12/11 IV 1555 Metronidazole 500 MG IQ8 12/10 1600 AC 12/12 N/A 1 UNIT IV 0837 Morphine Sulfate 2 MG Q3P PRN 12/04 1300 DC 12/08 IV 1127 Ondansetron HCl 4 MG Q6P PRN 12/02 1800 AC IV Pantoprazole Sodium 40 MG DAILY 12/02 2200 AC 12/11 IV 1019 Petrolatum 1 CECY DAILY NEEDED PRN 12/11 2215 AC 12/11 OPH 2257 Petrolatum 1 UNIT DAILY NEEDED PRN 12/11 1430 DC OPH Potassium Chloride 20 MEQ Q1H 12/12 0845 AC IV 12/12 0946 Potassium Chloride 20 MEQ Q1H 12/11 2330 DC 12/12 IV 12/12 0031 0324 Sodium Chloride 500 ML BOLUS ONE 12/12 0115 DC 12/12 IV 12/12 0214 0221 Total Parenteral 1 UNIT 1900 12/11 1900 DC 12/11 Nutrition IV 12/11 [id number] Total Parenteral 1 UNIT 1900 12/10 1900 DC 12/10 Nutrition IV 12/11 [id number] Vancomycin HCl 1,500 MG DAILY 12/11 1300 DC 12/11 Dextrose/Water 250 ML IV 1313 Laboratory Tests 12/12 12/11 12/11 0530 2030 1914 Chemistry Sodium (137 - 145 mmol/L) 146 H 145 Cancelled Potassium (3.5 - 5.1 mmol/L) 3.9 3.5 Cancelled Chloride (98 - 107 mmol/L) 109 H 110 H Cancelled Carbon Dioxide (22 - 30 mmol/L) 23 24 Cancelled Anion Gap (5 - 16) 13 11 Cancelled BUN (9 - 20 mg/dL) 25 H 25 H Cancelled Creatinine (0.7 - 1.2 mg/dL) 1.0 1.0 Cancelled Estimated GFR (>60 ml/min) > 60 > 60 Glucose (65 - 99 mg/dL) 143 H 137 H Cancelled Calcium (8.4 - 10.2 mg/dL) 7.1 L 7.2 L Cancelled Phosphorus (2.5 - 4.5 mg/dL) 3.7 4.0 Cancelled Magnesium (1.6 - 2.3 mg/dL) 1.9 1.9 Cancelled Total Bilirubin (0.2 - 1.3 mg/dL) 0.7 0.8 Cancelled AST (17 - 59 U/L) 46 47 Cancelled ALT (21 - 72 U/L) 38 30 Cancelled Albumin (3.5 - 5.0 g/dL) 1.8 L 1.8 L Cancelled Coagulation PT (9.4 - 12.5 SEC) 14.4 H INR (0.90 - 1.17) 1.38 H Hematology CBC w Diff NO MAN DIFF REQ WBC (4.8 - 10.8 /CUMM) 12.8 H RBC (4.70 - 6.10 /CUMM) 3.66 L Hgb (14.0 - 18.0 G/DL) 10.3 L Hct (42 - 52 %) 30.0 L MCV (80.0 - 94.0 FL) 82.1 MCH (27.0 - 31.0 PG) 28.1 RDW (11.5 - 14.5 %) 16.5 H Plt Count (130 - 400 /CUMM) 250 MPV (7.4 - 10.4 FL) 8.6 Gran % (42.2 - 75.2 %) 85.4 H Lymphocytes % (20.5 - 51.1 %) 9.6 L Monocytes % (1.7 - 9.3 %) 4.4 Eosinophils % (0 - 5 %) 0.5 Basophils % (0.0 - 2.0 %) 0.1 Absolute Granulocytes (1.4 - 6.5 /CUMM) 10.9 H Absolute Lymphocytes (1.2 - 3.4 /CUMM) 1.2 Absolute Monocytes (0.10 - 0.60 /CUMM) 0.6 Absolute Eosinophils (0.0 - 0.7 /CUMM) 0.1 Absolute Basophils (0.0 - 0.2 /CUMM) 0 PUBS MCHC (33.0 - 37.0 G/DL) 34.3 12/11 12/11 1605 1400 Blood Gas pH (7.35 - 7.45 PH) 7.40 pCO2 (35 - 45 TORR) 32 L pO2 (80 - 100 TORR) 108 H HCO3 (21 - 28 MEQ/L) 19 L ABG O2 Sat (Measured) (>96.0 %) 97.0 P-50 (Temp Corrected) Y Carboxyhemoglobin (1.5 - 5.0 %) 0.3 L O2 Concentration % 35% Temperature (97.0 - 100.0 FARH) 100.8 H Respiration Rate (BPM) 20 O2 Delivery Method ESPRIT Vent Mode AC Expiratory Pressure (CMH2O/P) 5 Tidal Volume (CC) 550 Coagulation PT (9.4 - 12.5 SEC) 13.3 H INR (0.90 - 1.17) 1.27 H Miscellaneous Phlebotomy Draw Site LEFT RADIAL 12/11 5267 Chemistry Sodium (137 - 145 mmol/L) 145 Potassium (3.5 - 5.1 mmol/L) 4.1 Chloride (98 - 107 mmol/L) 115 H Carbon Dioxide (22 - 30 mmol/L) 19 L Anion Gap (5 - 16) 12 BUN (9 - 20 mg/dL) 27 H Creatinine (0.7 - 1.2 mg/dL) 0.9 Estimated GFR (>60 ml/min) > 60 Glucose (65 - 99 mg/dL) 147 H Calcium (8.4 - 10.2 mg/dL) 7.0 L Phosphorus (2.5 - 4.5 mg/dL) 3.9 Magnesium (1.6 - 2.3 mg/dL) 2.1 Total Bilirubin (0.2 - 1.3 mg/dL) 0.9 AST (17 - 59 U/L) 44 ALT (21 - 72 U/L) 33 Albumin (3.5 - 5.0 g/dL) 1.7 L Prealbumin (17.6 - 36.0 mg/dL) < 3.0 L Triglycerides (<150 mg/dL) 173 H Hematology CBC w Diff MAN DIFF ORDERED WBC (4.8 - 10.8 /CUMM) 11.8 H RBC (4.70 - 6.10 /CUMM) 3.65 L Hgb (14.0 - 18.0 G/DL) 10.4 L Hct (42 - 52 %) 30.3 L MCV (80.0 - 94.0 FL) 83.2 MCH (27.0 - 31.0 PG) 28.6 RDW (11.5 - 14.5 %) 16.6 H Plt Count (130 - 400 /CUMM) 189 MPV (7.4 - 10.4 FL) 9.4 Gran % (42.2 - 75.2 %) 90.1 H Lymphocytes % (20.5 - 51.1 %) 7.4 L Monocytes % (1.7 - 9.3 %) 1.5 L Eosinophils % (0 - 5 %) 0.8 Basophils % (0.0 - 2.0 %) 0.2 Absolute Granulocytes (1.4 - 6.5 /CUMM) 10.6 H Segmented Neutrophils (42.2 - 75.2 %) 73 Band Neutrophils (0.0 - 5.0 %) 5 Absolute Lymphocytes (1.2 - 3.4 /CUMM) 0.9 L Lymphocytes (20.5 - 51.1 %) 16 L Monocytes (1.7 - 9.3 %) 4 Absolute Monocytes (0.10 - 0.60 /CUMM) 0.2 Eosinophils (0 - 5.0 %) 1 Absolute Eosinophils (0.0 - 0.7 /CUMM) 0.1 Basophils (0.0 - 2.0 %) 1 Absolute Basophils (0.0 - 0.2 /CUMM) 0 Platelet Estimate (ADEQUATE) ADEQUATE Hypochromic-Microcytic 1+ PUBS MCHC (33.0 - 37.0 G/DL) 34.4 Microbiology Date/Time Procedure - Status Source Growth 12/11 1410 Blood Culture - RECD BLOOD 12/11 1400 Blood Culture - RECD BLOOD Vital Signs & I&O Last 24 Hrs of Vitals and I&O: Vital Signs Date Time Temp Pulse Resp B/P Pulse O2 O2 Flow FiO2 Ox Delivery Rate 12/12 0933 101.3 12/12 0805 35 12/12 0552 35 12/12 0400 97 Ventilator 35% 12/12 0258 35 12/12 0100 35 12/12 0000 100.4 12/12 0000 100.6 82 20 118/64 96 Ventilator 35% 12/12 0000 96 Ventilator 35% 12/11 2256 101.2 12/11 2203 35 12/11 2000 99 Ventilator 35% 12/11 1952 35 12/11 1600 35 12/11 1600 100 Ventilator 35% 12/11 1600 100.2 91 25 160/80 100 Ventilator 35% 12/11 1407 35 12/11 1200 95 Ventilator 35% 12/11 1154 35 12/11 1115 99.6 12/11 1019 100.2 Intake & Output 12/12 1600 12/12 0800 12/12 0000 Intake Total 1469 1297 Output Total 810 2535 Balance 659 -1238 Intake, IV 1469 1297 Output, 100 40 Gastric Drainage Output, Stool 20 50 Output, Urine 690 2445 Impression/Plan Impression/Plan Impression/Plan: Pupils reacting intubated sedated Heart S1 and S2 is heard irregular rhythm Lungs are clear, with crackles Heart regular rhythm with no murmurominal stoma pink no ischemia Liquid stool in the ostomy Abdominal exam little distended Copious amount of mucopurulent drainage on bandage from open wound areas, diffusely tender abdomen Extremity 2+ edema Has Edward catheter, PICC line IMPRESSION This is an 89-year-old gentleman with the mild obstructive restrictive lung disease with previous pneumonia now status post 6 laparotomy with sigmoid colectomy with colostomy after an abdominal perforation with respiratory failure with pneumonia with mild fluid overload. Issues include * Acute respiratory failure related to sepsis, mild pulmonary edema with pneumonia with high minute ventilation, with ongoing sepsis with abd infection * Sig perforation with status post surgery, open abdominal wound with significant infection, with intra abd fluid collection * Patient is high-risk for Systemic Elo * Previous obstructive restrictive lung disease with no significant wheezing * On going fever with Gram-positive and gram-negative, ongoing infection, wit ecoli * Patient is nothing by mouth on TPN, with abx and open abd high risk for systemic elo, with onging surg site infection ID on board * Small left pleural effusion with trapped lung which needs to be investigated in the future if he gets worse for empyema on the left side * Cephalic vein thrombosis RECOMMENDATION Continue mechanical ventilator Intravenous Lasix 10 mg q 8 hrs if tolerated and keep pt even Surgery to decide whether he would need to have these fluid collections aspirated Continue broad-spectrum antibiotics per ID Low-dose Ativan and Continue fentanyl for now Surg on board We will follow closely Patient is critically ill prognosis is very guarded discussed with family yesterday Total time spent 50 minutes Code Status: Full Code
--- NOTE | 2016-12-12 11:43 | NUR ---
DR IRVING AT THE BEDSIDE AT 1100 TO CHANGE THE DRESSING TO THE MIDLINE ABD AND CLEAN OUT WOUND PRIOR TO GOING TO THE OR FOR A WASHOUT OF THE ABD. AT 1136 THE PT WAS NOTED TO HAVE THE FIRST OF 3 EPISODES OD BRADYCARDIA WITH THE HR DECREASING TO 48 FOR A FEW SECONDS AND THEN RETURNING TO THE 70'S. LAST EPISIDE WAS AT 1142. DR DAMEON PARKER NOTIFIED.
--- NOTE | 2016-12-12 14:37 | NUR ---
PT BROUGHT TO THE OR AT 1255, WITH CHIP WASHER VENTILATING THE PT WITH AN AMBU BAG. 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 REPORT GIVEN TO NABILA STARBUCKS CLERK WELL BEENA GRANADO. REMAINS IN THE OR AT THIS TIME.
--- NOTE | 2016-12-12 16:40 | NUR ---
PT RETURNED FROM THE OR AT 1600. BEING RECOVERED BY MATH TUTOR LYNN-SEE PACU RECOVERY SHEET.
[2016-12-12 17:00] VITALS: BP 156/86
--- NOTE | 2016-12-12 17:19 | Operative Report ---
Operative/Inv Procedure Report Surgery Date: 12/12/16 Name of Procedure: Laparotomy drainage of intraperitoneal abscess abdominal washout Pre-Operative Diagnosis: Intra-abdominal abscess Post-Operative Diagnosis: Same Estimated Blood Loss: scant Surgeon/Handicraft Or Hobby Shop Manager: ARISTIDES ALEJANDRO,DARWIN Nickerson Anesthesia: general endotracheal tube Operative/Procedure Note Note: Patient came down from ICU already intubated he was transferred to the operating room table and after successful induction of general anesthesia the area around his abdominal incision was prepped and draped in usual sterile fashion. The singh were taken out the subcutaneous space was explored, there was no dehiscence actually the sides were granulating, but it seemed that there was some pooling of that turbid drainage at the bottom so we reopened the bottom of the incision and opened a loculation of purulent fluid in the left lower quadrant between the ostomy and the hernia my suspicion was that this was coming from the space of the hernia we spent time irrigating this including putting a Edward down into the hernia sac extended into the scrotum and irrigating with a Larry syringe including bacitracin irrigation superiorly there were more little collections but these were serous the bowel and omentum were very friable and edematous and in the interest of avoiding injury or bleeding we did not run the bowel but there was a separate pocket of turbid fluid on the right side between the leaves of the mesentery of the small bowel this fluid was not quite the same as the one in the left lower quadrant. Fluid was sent for culture. On exploration we did not find any other pockets of pus we continued to irrigate and aspirate and then reapproximated the midline fascia with continuous runs of 0 Maxon as well as interrupted 2-0 Vicryl the also placed a Aaron-Khan drain into the hernia space on the left we placed a Herber drain between the small bowel loops on the right and brought both of these out at the bottom of the incision closing around it and suturing both separately to the skin with 3-0 nylon. The subcutaneous space was also wicked open in numerous places in between singh followed by fluff gauze. EBL minimal lap and sponge was correct wound expectancy was infected, IV fluids crystalloid complications none patient tolerated the procedure well was awakened and returned to the ICU in satisfactory condition. Note that during this case patient was afebrile.
--- NOTE | 2016-12-12 17:59 | NUR ---
ASSUMED CARE OF THE PT FROM ASSISTANT IMPORT MANAGER AT 1700. REMAINS SEDATED ON FENTANYL 75MCG/HR OR 18.8ML/HR INFUSING VIA THE CLAUDIO PORT OF THE BILLY PICC. SAS IS A 3. PT IS IN A NSR WITHOUT ECTOPY PER THE GEAR LAPPER-NO FURTHER EPISODES OF BRADYCARDIA NOTED. CONTINUES TO HAVE 2+ GENERALIZED EDEMA WITH THE RUE REMAINING 3+. BUE CONTINUE TO HAVE WEEPING EDEMA R>L. ANA BS ARE CLEAR BUT DIMINISHED AT THE BASES, WITH AN O2 SAT IF 100%-REMAINS ON PREOP VENT SETTINGS OF AC-20/TV-550/FIO2 35%/PEEP +5. SUCTIONED FOR MODERATE AMOUNT OF THIN WHITE SPUTUM. ABD IS DISTENDED BUT FIRM WITH NORMOACTIVE BOWEL SOUNDS. L SIDED COLOSTOMY WITH PINK STOMA AND WATERY BROWN STOOL. JIAN TO THE BOTTOM R SIDE OF THE MIDLINE DRESSING WITH MODERATE AMOUNT OF SEROSANGUINOUS DRAINAGE. JIAN DRAINING SEROSANGUINOUS FLUID-ASSISTANT IMPORT MANAGER EMPTIED 50ML. ANN IN PLACE DRAINING CLEAR YELLOW URINE. NGT TO LWS INSERTED VIA THE R NARE.
--- NOTE | 2016-12-12 20:29 | PN- General Surgery ---
Subjective Subjective: No acute post operative events reported. Patient remains intubated but is responding to verbal stimuli. Does not appear to be in distress. Objective Vital Signs and I&Os Vital Signs Date Time Temp Pulse Resp B/P Pulse O2 O2 Flow FiO2 Ox Delivery Rate 12/12 1918 30 12/12 1700 100 Ventilator 35% 12/12 1700 97.8 77 20 156/86 100 Ventilator 35% 12/12 1600 35 12/12 1200 100 Ventilator 35% 12/12 1100 35 12/12 1030 99.6 12/12 0933 101.3 12/12 0805 35 12/12 0800 98 Ventilator 35% 12/12 0800 101.4 90 21 148/76 98 Ventilator 35% 12/12 0552 35 12/12 0400 97 Ventilator 35% 12/12 0258 35 12/12 0100 35 12/12 0000 100.4 12/12 0000 100.6 82 20 118/64 96 Ventilator 35% 12/12 0000 96 Ventilator 35% 12/11 2256 101.2 12/11 2203 35 Intake & Output 12/12 1600 12/12 0800 12/12 0000 12/11 1600 12/11 0800 12/11 0000 Intake Total 1469 1297 1361 1359.0 1800.0 Output Total 810 2535 2375 660 550 Balance 659 -1238 -1014 699.0 1250.0 Intake, IV 1469 1297 9135 475 2881 Intake, Lipid 93.0 89.0 Intake, Oral 0 Intake, 403 362 TPN/PPN Number 0 Bowel Movements Output, 100 40 50 Gastric Drainage Output, Stool 20 50 50 20 Output, Urine 690 2445 2325 590 550 Patient 244 lb 234 lb Weight Physical Exam: General: Intubated, responsive to verbal stimuli Cardiac: RRR, s1s2 Pulm: CTA bilaterally Abdomen: Dressing saturated with serous drainage at inferior aspect, reinforced. Distended, colostomy with formed stool presently. Extremities: Moves all extremities, skin perfused, calves soft Assessment/Plan Assessment/Plan This is a 89 year old male post op day 10 s/p hartmans procedure for perforation , pod 0 s/p washout and drainage of intra-abdominal fecal peritoneal fluid collections -Monitor JIAN output, reinforce dressing at inferior aspect of incision -Continue TPN for now, will consider tube feeds when stabilized and ostomy output improves -Weaning trials per critical care team -Continue abx per Dr. Pichardo's recommendation, await OR cultures taken today Core Measures/Miscellaneous Edward Catheter Date In: 12/02/16 Venous Thromboembolism VTE Risk Factors: Acute medical illness, Age > 40, Surgery VTE Contraindications: No Contraindications VTE Prophylaxis Ordered Inpt Mech & Pharm VTE Diagnosis: No Beta Abelardo Is Beta Abelardo a Home Med? No Antibiotics Is Patient on Antibiotics? Yes If Yes: infection
[2016-12-13] VITALS: BP 104/65
[2016-12-13 04:40] LABS: ABSOLUTE BASOPHIL COUNT 0.A896 /CUMM (0.0-0.2); ABSOLUTE EOSINOPHIL COUNT 0 /CUMM (0.0-0.7); ABSOLUTE GRANULOCYTE CT 12.2 /CUMM (1.4-6.5); BASOPHIL % 0.1 % (0.0-2.0); EOSINOPHIL % 0.3 % (0-5); GRANULOCYTE % 86.8 % (42.2-75.2); MEAN CORPUSCULAR HGB 28.2 PG (27.0-31.0); MEAN CORPUSCULAR HGB CONC 34.2 G/DL (33.0-37.0); MEAN CORPUSCULAR VOLUME 82.6 FL (80.0-94.0); PLATELET COUNT 283 /CUMM (130-400); RBC DISTRIBUTION WIDTH 16.4 % (11.5-14.5); RED BLOOD CELL CT 3.87 /CUMM (4.70-6.10); WHITE BLOOD CELL COUNT 14.1 /CUMM (4.8-10.8)
[2016-12-13 04:43] LABS: PT 15.3 SEC (9.4-12.5)
--- NOTE | 2016-12-13 05:59 | PN- General Surgery ---
See Addendum Subjective Subjective: No acute overnight events reported, tmax 102.5, all other vital signs remained stable and within normal limits. Patient does not appear to be in distress, is sedated and intubated, responds to verbal and painful stimuli. Objective Vital Signs and I&Os Vital Signs Date Time Temp Pulse Resp B/P Pulse O2 O2 Flow FiO2 Ox Delivery Rate 12/13 0533 30 12/13 0255 30 12/13 0230 100.1 12/13 0130 102.5 12/13 0026 30 12/12 2217 30 12/12 2000 97 Ventilator 30% 12/12 1918 30 12/12 1700 100 Ventilator 35% 12/12 1700 97.8 77 20 156/86 100 Ventilator 35% 12/12 1600 35 12/12 1200 100 Ventilator 35% 12/12 1100 35 12/12 1030 99.6 12/12 0933 101.3 12/12 0805 35 12/12 0800 98 Ventilator 35% 12/12 0800 101.4 90 21 148/76 98 Ventilator 35% Intake & Output 12/13 0800 12/13 0000 12/12 1600 12/12 0800 12/12 0000 12/11 1600 Intake Total 631 1361 1469 1297 1361 Output Total 1305 1774 884 2321 2375 Balance -674 -399 659 -1238 -1014 Intake, IV 631 1361 1469 1297 1361 Output, 125 Drainage Output, 25 75 100 40 Gastric Drainage Output, Other 25 Output, Stool 50 25 20 50 50 Output, Urine 1105 5522 456 8687 2325 Patient 244 lb Weight Physical Exam: General: Sedated, intubated, responsive to verbal and painful stimuli Cardiac: RRR, s1s2 Pulmonary: CTA bilaterally, on vent, settings unchanged Abdomen: Distended, dressing with serous drainage on inferior aspect due to sánchez, more superior dressing with spots of serous drainage near packing sites. Ostomy with minimal output, small amount of formed stool overnight Extremiteis: MOves all extremites, skin warm and well perfused. Palpable pulses. Calves soft bilaterally Assessment/Plan Assessment/Plan This is a 89 year old male, POD 11 s/p hartmans and POD 1 s/p washout of fecal peritonitis related fluid collections -Continue vent settings/management per critical care team -Continue current pain regimen if bp tolerates it -Continue iv abx, await OR cultures -Continue tpn for now, will consider tube feed when stable and ostomy output consistent -Reinforce dressing as needed, will begin to inch out packing and sánchez likely tomorrow but will discuss with Dr. Adkins Core Measures/Miscellaneous Edward Catheter Date In: 12/02/16 Venous Thromboembolism VTE Risk Factors: Acute medical illness, Age > 40, Surgery VTE Contraindications: No Contraindications VTE Prophylaxis Ordered Inpt Mech & Pharm VTE Diagnosis: No Beta Abelardo Is Beta Abelardo a Home Med? No Antibiotics Is Patient on Antibiotics? Yes If Yes: infection
--- NOTE | 2016-12-13 07:40 | PN- Resident CRCU ---
BILL ALEJANDRO,DAMEON 12/13/16 0739: Subjective HPI/CRCU Issues: 1. Perforated sigmoid colon S/P exploratory laparotomy Post op day 11 2. Intubated and mechanically ventilated 3. Fevers with Tmax of 101.4 4. Laparotomy drainage of intraperitoneal abscess abdominal washout day 2 24 Hour Events: I saw and examined the patient today morning. He is little agitated, able to open eyes. He is still intubated. Had fever overnight. Objective Vital Signs & I&O Last 8 Hrs of Vitals and I&O: Intake & Output 12/13 1600 Intake Total 1279 Output Total 1200 Balance 79 Intake, IV 1279 Intake, Oral 0 Number 0 Bowel Movements Output, 50 Drainage Output, 250 Gastric Drainage Output, Stool 0 Output, Urine 900 VS Febrile 101.5 HR in sinus rhythm with HR 65-90 BP 120/80mmHG, dropped down to 90/60 in the middle of the night but resolved by stopping the fentanyl drip. On mechanical ventilation with AC 20, VT 550, fiO2 35%, PEEP 5cm. Exam General Appearance: alert, awake, moderate distress, obese Head: atraumatic, normal appearance Neck: normal inspection Respiratory: chest non-tender, transmitted sounds Cardiovascular: regular rate/rhythm, normal peripheral pulses Gastrointestinal: normal bowel sounds, tenderness, drains in place with colostomy bag Extremities: normal inspection, normal capillary refill, pedal edema, swelling, upper extremities are more swollen Weaning Parameters NIF: 42 Minute Volume: 13 Resp rate: 24 Vt: 520 Heart Rate: 107 Weaning Schedule Start Time: 0940 Minute Volume: 13 Resp Rate: 24 Vt: 520 Heart Rate: 107 Edward Still Needed? Yes IV Drips IV Drips: fentanyl drip TPN Nutrition Nutrition: NPO, TPN rate Current Medications: Current Medications Sig/Ar Start time Last Medication Dose Route Stop Time Status Admin Acetaminophen 1,000 MG .STK-MED ONE 12/13 0125 DC IV 12/13 0126 Acetaminophen 1,000 MG Q6P PRN 12/04 194 AC 12/13 N/A 1 UNIT IV 1100 Albuterol Sulfate 3 ML EVERY 4 HRS/AWAKE 12/06 1600 AC 12/13 INH 1623 Ceftriaxone Sodium 1,000 MG DAILY@1900 12/11 1900 DC 12/12 IV 1832 Fat Emulsion 375 ML 1900 12/13 1900 AC Intravenous IV 12/14 1859 Fat Emulsion 375 ML 1900 12/12 1900 AC 12/12 Intravenous IV 12/13 185 183 Fat Emulsion 325 ML 1900 12/11 1900 DC 12/11 Intravenous IV 12/12 185 205 Fentanyl Citrate 1,000 MCG Q13H 12/12 0815 AC 12/13 Sodium Chloride 250 ML IV 0350 Furosemide 10 MG Q8 12/12 1045 DC 12/13 IV 0626 Heparin Sodium 5,000 UNIT Q8 12/02 2200 AC 12/13 (Porcine) SC 1400 Ipratropium [place] 2.5 ML EVERY 4 HRS/AWAKE 12/06 1600 AC 12/13 INH 1623 Lorazepam 0.5 MG Q4P PRN 12/12 0230 AC 12/12 IV 2121 Meropenem 1 GM Q8H 12/13 1200 AC 12/13 IV 1134 Metronidazole 500 MG IQ8 12/10 1600 DC 12/13 N/A 1 UNIT IV 0800 Ondansetron HCl 4 MG Q6P PRN 12/02 1800 IV Pantoprazole Sodium 40 MG DAILY 12/02 2200 AC 12/13 IV 0928 Petrolatum 1 CECY DAILY NEEDED PRN 12/11 2215 AC 12/12 OPH 2130 Potassium Chloride 20 MEQ Q1H 12/13 0815 DC 12/13 IV 12/13 0916 1000 Total Parenteral 1 UNIT 1900 12/13 1900 DC Nutrition IV 12/13 190 Total Parenteral 1 UNIT 1900 12/13 1900 AC Nutrition IV 12/14 185 Total Parenteral 1 UNIT 1900 12/12 1900 AC 12/12 Nutrition IV 12/13 185 1832 Antibiotics Antibiotic: meropenem Day #: 1 IV/PO? IV Results Cultures: Culture: Abdominal Date: 12/13/16 Isolate: gram positive cocci CXR Findings: IMPRESSION: 1. Endotracheal tube terminates 2.2 cm above the fernando. 2. Improving vascular congestion. Interval improvement in the left lung opacity. 3. Trace bilateral pleural effusions. Impression/Plan Impression/Problem List Impression: Patient is a 89-year-old male with past medical history significant for asthma, hypertension, bilateral inguinal hernia status post repair 30 years ago came to the hospital yesterday with acute abdominal pain. In the ER he was eventually found to have acute perforation of sigmoid colon with peritonitis, underwent emergent surgery with Henny's procedure. He was subsequently sent to ICU for hemodynamic stabilization, further care as patient is at high risk for infection /respiratory failure postextubation. Today he is still intubated and ventilated, slightly arousable and spiking fevers. Plan Respiratory: Intubated and mechanically ventilated * On fentanyl drip. History of respiratory infection * Patient had chronic productive cough which was recently evaluated with sputum cultures * It revealed growth of Kluyer ascorbata and klebsiella * He was subsequently started on ciprofloxacin and a steroid taper. * He is still taking prednisolone for bronchospasm before admission. Infectious Diseases: Spiking fevers S/P explaratory laparotomy day #11and repeat drainage yesterday. * Patient is at high risk for infection post operatively as his peritoneum is filled with fecal matter. * He is febrile with Tmax of 101.5 Overnight. * Started on IV meropenem Q8 1gm. * on IV tylenol and cooling blankets. * Cultures-respiratory on December 09 are positive for Escherichia coli * Underwent repeat laparotomy with pus draining from 2 regions. * OR cultures are sent and positive for Gram postive cocci and gram negative rods. Cardiovascular: New onset Atrial Fibriallation in the setting of sepsis postoperativey * OFF amiodarone drip and maintaining Normal sinus rhythm. Hematology: Right Cephalic vein thrombosis * Right arm found to have superficial thrombosis in right cephalic vein. * Could be a source of fever. * Warm compressors without any anticoagulation for now. * Had a peripheral line in that region at the time of surgery. Metabolic: JUANA * Resolved, Today creatinine is 1.0 * Creatinine at the time of admission is 1.1 * Post op - increased to 1.3 then 1.5 * I/O - 4127/5720 Alimentary: * NPO with NG decompression * TPN - day 4. * Repeat laparotomy - drained pus from left inguinal region and between the bowels. * Bowel sounds present, doing well now Neurological: Intubated and sedated Skin: * Colostomy bag in place with active drainage * After the procedure today placed on JIAN drain and Herber drain. * Dressed well. DVT/Prophylaxis: sc lovenox Code Status: Full Code Problem List: 1. Dyslipidemia 2. Perforated abdominal viscus 3. Left inguinal hernia 4. Peritonitis 5. COPD (chronic obstructive pulmonary disease) Pain Ratin Tomorrow's Labs & Rationales: ICU bundle - to monitor electrolytes on TPN CBC - to monitor for white count CXR - tube positioning as on ventilator Plan DVT/Prophylaxis: sc lovenox Code Status: Full Code JO DAVISON 12/13/16 1458: Objective Vital Signs & I&O Last 8 Hrs of Vitals and I&O: Intake & Output 12/13 1600 Intake Total 1279 Output Total 1200 Balance 79 Intake, IV 1279 Intake, Oral 0 Number 0 Bowel Movements Output, 50 Drainage Output, 250 Gastric Drainage Output, Stool 0 Output, Urine 900
[2016-12-13 08:00] VITALS: BP 120/78
--- NOTE | 2016-12-13 08:14 | RADIOLOGY REPORT ---
EXAMINATION: XR PORTABLE CHEST CLINICAL INFORMATION: Mechanically ventilated. Check tube position. COMPARISON: Chest x-ray of 12/12/16 and priors dated back to 12/09/16. CT chest of 12/09/16. TECHNIQUE: Portable view of the chest was obtained. FINDINGS: An endotracheal tube terminates approximately 2.2 cm above the fernando. A left PICC terminates over the expected location of the cavoatrial junction. There is likely an enteric tube however in the lower chest its visualization is difficult given the technique and patient's body habitus. The lungs are mildly hypoexpanded. There is interval improvement in the vascular congestion with persistent mild congestion. Significant interval resolution of increased left lung opacity seen on the study of 12/12/2016. Trace bilateral pleural effusions and some, improved compared to previous study of 12/09/2016. No new focal consolidations. No pneumothorax. The cardiomediastinal silhouette is unchanged IMPRESSION: 1. Endotracheal tube terminates 2.2 cm above the fernando. 2. Improving vascular congestion. Interval improvement in the left lung opacity. 3. Trace bilateral pleural effusions.
--- NOTE | 2016-12-13 08:58 | PN- CRCU ---
Subjective HPI/Critical Care Issues: pt seen and examined febrile overnight and presently 101.4 wbc 14 s/p surgical intervention with fluid collections ros unobtainable Objective Current Medications: Current Medications Sig/Ar Start time Last Medication Dose Route Stop Time Status Admin Acetaminophen 1,000 MG Q6P PRN 12/04 1945 12/13 N/A 1 UNIT IV 0130 Albuterol Sulfate 3 ML EVERY 4 HRS/AWAKE 12/06 1600 AC 12/13 INH 0808 Ceftriaxone Sodium 1,000 MG DAILY@1900 12/11 1900 AC 12/12 IV 1832 Fat Emulsion 325 ML 1900 12/12 1900 CAN Intravenous IV 12/13 185 Fat Emulsion 375 ML 1900 12/12 1900 AC 12/12 Intravenous IV 12/13 185 1832 Fat Emulsion 325 ML 1900 12/11 1900 DC 12/11 Intravenous IV 12/12 185 205 Fentanyl Citrate 250 MCG .STK-MED ONE 12/12 1248 DC IM 12/12 1249 Fentanyl Citrate 1,000 MCG Q13H 12/12 0815 12/13 Sodium Chloride 250 ML IV 0350 Furosemide 10 MG Q8 12/12 1045 AC 12/13 IV 0626 Heparin Sodium 5,000 UNIT Q8 12/02 2200 12/13 (Porcine) SC 0630 Hydromorphone HCl 2 MG .STK-MED ONE 12/12 1248 DC IM 12/12 1249 Ipratropium [place] 2.5 ML EVERY 4 HRS/AWAKE 12/06 1600 12/13 INH 0808 Lorazepam 0.5 MG Q4P PRN 12/12 0230 12/12 IV 2121 Metronidazole 500 MG IQ8 12/10 1600 12/13 N/A 1 UNIT IV 0000 Ondansetron HCl 4 MG Q6P PRN 12/02 1800 IV Pantoprazole Sodium 40 MG DAILY 12/02 2200 12/12 IV 1005 Petrolatum 1 CECY DAILY NEEDED PRN 12/11 2215 AC 12/12 OPH 2130 Potassium Chloride 20 MEQ Q1H 12/13 0815 AC IV 12/13 0916 Potassium Chloride 20 MEQ Q1H 12/12 0845 DC 12/12 IV 12/12 0946 1113 Total Parenteral 1 UNIT 1900 12/12 1900 AC 12/12 Nutrition IV 12/13 1859 1832 Vital Signs & I&O Last 24 Hrs of Vitals and I&O: Vital Signs Date Time Temp Pulse Resp B/P Pulse O2 O2 Flow FiO2 Ox Delivery Rate 12/13 0758 30 12/13 0533 30 12/13 0400 97 Ventilator 30% 12/13 0255 30 12/13 0230 100.1 12/13 0130 102.5 12/13 0026 30 12/13 0000 100.6 109 27 104/65 96 Ventilator 30% 12/13 0000 96 Ventilator 30% 12/12 2217 30 12/12 2000 97 Ventilator 30% 12/12 1918 30 12/12 1700 100 Ventilator 35% 12/12 1700 97.8 77 20 156/86 100 Ventilator 35% 12/12 1600 35 12/12 1200 100 Ventilator 35% 12/12 1100 35 12/12 1030 99.6 12/12 0933 101.3 Intake & Output 12/13 1600 12/13 0800 12/13 0000 Intake Total 1273 1992 Output Total 1330 3065 Balance -57 -1073 Intake, IV 1273 1992 Output, 90 125 Drainage Output, 200 100 Gastric Drainage Output, Other 25 Output, Stool 20 75 Output, Urine 1020 2740 Exam Other Physical Findings: gen intubated heent ett cvs s1, s2 lungs transmitted abd diminished bs+ ext no edema Results Last 24 Hrs of Lab Results: Laboratory Tests 12/13/16 0400: Anion Gap 6, Estimated GFR > 60, Glucose 203 H, Calcium 6.9 L, Phosphorus 3.4, Magnesium 1.8, Total Bilirubin 0.6, AST 43, ALT 37, Albumin 1.7 L, PT 15.3 H, INR 1.46 H, CBC w Diff MAN DIFF ORDERED, RBC 3.87 L, MCV 82.6, MCH 28.2, RDW 16.4 H, MPV 9.0, Gran % 86.8 H, Lymphocytes % 8.0 L, Monocytes % 4.8, Eosinophils % 0.3, Basophils % 0.1, Absolute Granulocytes 12.2 H, Segmented Neutrophils 77 H, Band Neutrophils 12 H, Lymphocytes 3 L, Monocytes 7, Absolute Eosinophils 0, Absolute Basophils 0.A896, Metamyelocytes 1, Platelet Estimate ADEQUATE, Polychromasia 1+, PUBS MCHC 34.2 Impression/Plan Impression/Plan Impression/Plan: Impression 89 year old man * 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 for acute abdominal perforation * Respiratory failure with increased bibasilar opacities, maybe fluid overload * History of obstructive lung disease Plan Respiratory - Monitor chest x-rays and ABGs - TRC/Nebs ID - ceftriaxone/flagyl - f/u ID, surgery recommendations CVS - monitor hemodynamics - Superficial cephalic vein thrombosis will need warm compresses Heme - monitor cbc, coags Metabolic - ins/outs, sis improved Alimentary - NPO, per surgery - D5W for hypernatremia Neuro - sedation as necessary for comfort DVT prophylaxis at all times TTS 40 min Will continue to have ongoing discussion regarding goals of care. Code Status: Full Code
--- NOTE | 2016-12-13 10:56 | PN- Infect Dx ---
Subjective Subjective: MAXIMUM TEMPERATURE 102.5. He was taken to the OR yesterday and remains on mild sedation but has been responsive. Objective Last 24 Hrs of Vital Signs/I&O Vital Signs Date Time Temp Pulse Resp B/P Pulse O2 O2 Flow FiO2 Ox Delivery Rate 12/13 0758 30 12/13 0533 30 12/13 0400 97 Ventilator 30% 12/13 0255 30 12/13 0230 100.1 12/13 0130 102.5 12/13 0026 30 12/13 0000 100.6 109 27 104/65 96 Ventilator 30% 12/13 0000 96 Ventilator 30% 12/12 2217 30 12/12 2000 97 Ventilator 30% 12/12 1918 30 12/12 1700 100 Ventilator 35% 12/12 1700 97.8 77 20 156/86 100 Ventilator 35% 12/12 1600 35 12/12 1200 100 Ventilator 35% 12/12 1100 35 Intake & Output 12/13 1600 12/13 0800 12/13 0000 Intake Total 1273 1992 Output Total 1330 3065 Balance -57 -1073 Intake, IV 1273 1992 Output, 90 125 Drainage Output, 200 100 Gastric Drainage Output, Other 25 Output, Stool 20 75 Output, Urine 1020 2740 Physical Exam Other Physical Findings: He is responsive though lethargic on the ventilator Lungs scattered rhonchi Heart regular rhythm with no murmur Abdomen is distended, dressing intact over the midline incision, with clear fluid in the colostomy and with one [place] drain in place Extremities decreased edema of all extremities; PICC in the left upper extremity with no inflammation at the site Edward catheter remains in place Results Last 24 Hours of Lab Results: Laboratory Tests 12/13 399 Chemistry Sodium (137 - 145 mmol/L) 143 Potassium (3.5 - 5.1 mmol/L) 3.7 Chloride (98 - 107 mmol/L) 112 H Carbon Dioxide (22 - 30 mmol/L) 24 Anion Gap (5 - 16) 6 BUN (9 - 20 mg/dL) 26 H Creatinine (0.7 - 1.2 mg/dL) 1.0 Estimated GFR (>60 ml/min) > 60 Glucose (65 - 99 mg/dL) 203 H Calcium (8.4 - 10.2 mg/dL) 6.9 L Phosphorus (2.5 - 4.5 mg/dL) 3.4 Magnesium (1.6 - 2.3 mg/dL) 1.8 Total Bilirubin (0.2 - 1.3 mg/dL) 0.6 AST (17 - 59 U/L) 43 ALT (21 - 72 U/L) 37 Albumin (3.5 - 5.0 g/dL) 1.7 L Coagulation PT (9.4 - 12.5 SEC) 15.3 H INR (0.90 - 1.17) 1.46 H Hematology CBC w Diff MAN DIFF ORDERED WBC (4.8 - 10.8 /CUMM) 14.1 H RBC (4.70 - 6.10 /CUMM) 3.87 L Hgb (14.0 - 18.0 G/DL) 10.9 L Hct (42 - 52 %) 32.0 L MCV (80.0 - 94.0 FL) 82.6 MCH (27.0 - 31.0 PG) 28.2 RDW (11.5 - 14.5 %) 16.4 H Plt Count (130 - 400 /CUMM) 283 MPV (7.4 - 10.4 FL) 9.0 Gran % (42.2 - 75.2 %) 86.8 H Lymphocytes % (20.5 - 51.1 %) 8.0 L Monocytes % (1.7 - 9.3 %) 4.8 Eosinophils % (0 - 5 %) 0.3 Basophils % (0.0 - 2.0 %) 0.1 Absolute Granulocytes (1.4 - 6.5 /CUMM) 12.2 H Segmented Neutrophils (42.2 - 75.2 %) 77 H Band Neutrophils (0.0 - 5.0 %) 12 H Lymphocytes (20.5 - 51.1 %) 3 L Monocytes (1.7 - 9.3 %) 7 Absolute Eosinophils (0.0 - 0.7 /CUMM) 0 Absolute Basophils (0.0 - 0.2 /CUMM) 0.A896 Metamyelocytes (0.0 - 1.0 %) 1 Platelet Estimate (ADEQUATE) ADEQUATE Polychromasia 1+ PUBS MCHC (33.0 - 37.0 G/DL) 34.2 Last 24 Hours of Adrian Results: Blood cultures 2 December 11 remain negative OR cultures December 12 positive for gram-negative rods and gram-positive cocci Recent Imaging Studies: Chest x-ray December 13 improvement in the vascular congestion seen on the previous study Assessment/Plan Impression: Persistent fever status post return to the OR yesterday for laparotomy drainage of intraperitoneal abscesses, with white blood cell count increased, along with increased bands, though he remains hemodynamically stable with continued improvement in his respiratory status likely related to diuresis. He remains on Ceftriaxone and Flagyl, which may cover the organisms isolated, with recent sputum culture positive for Escherichia coli, though suspect this represents colonization, and, pending final cultures, can broaden his antibiotics. He is now 11 days status post his initial Kirkland's procedure for peritonitis secondary to a perforated viscus. Suggestion: 1. Follow-up OR cultures 2. Discontinue Ceftriaxone and Flagyl 3. Begin Meropenem 1 g IV every 8 hours pending above
--- NOTE | 2016-12-13 13:40 | Transfer of Care Summary ---
Hospital Course Course Hospital Course: Patient is a 89-year-old male with past medical history significant for asthma, hypertension, bilateral inguinal hernia status post repair 30 years ago came to the hospital yesterday with acute abdominal pain. In the ER he was eventually found to have acute perforation of sigmoid colon with peritonitis, underwent emergent surgery with Henny's procedure. He was subsequently sent to ICU for hemodynamic stabilization, further care as patient is at high risk for infection /respiratory failure postextubation. He is admitted to ICU and the follwing issues are addressed Impression: Patient is a 89-year-old male with past medical history significant for asthma, hypertension, bilateral inguinal hernia status post repair 30 years ago came to the hospital yesterday with acute abdominal pain. In the ER he was eventually found to have acute perforation of sigmoid colon with peritonitis, underwent emergent surgery with Henny's procedure. He was subsequently sent to ICU for hemodynamic stabilization, further care as patient is at high risk for infection /respiratory failure postextubation. Today he is still intubated and ventilated, slightly arousable and spiking fevers. Plan Respiratory: Intubated and mechanically ventilated He is intubated on december 02. Intially found to have metabolic acidosis which was not compensated with ventilation and not extubated as risk of decompensation is high and requies reintubation. On fentanyl drip. ABG was done in the AM to monitor gases through the arterial line intially. A line is removed later. Recently his ABG's are stable with normal pH, so they are repeated occasionally as per the clinical condition. History of respiratory infection Patient had chronic productive cough from several years which was recently evaluated with sputum cultures. It revealed growth of Kluyer ascorbata and klebsiella. He was subsequently started on ciprofloxacin and a steroid taper. He is still taking prednisolone for bronchospasm before admission. Infectious Diseases: Spiking fevers S/P Exploratomy laprotomy for perforated abdominal viscus Underwent laprascopic repair on 12/02/16. Patient is at high risk for infection post operatively as his peritoneum is filled with fecal matter. He is febrile every day spiking fever around 101.5 has been on IV tylenol and cooling blankets. After surgery given single dose of unasyn and solucortef 50mg. Intially started on Zosyn 4.5gm for 7days although spiking fevers. Cultures after surgery are negative (OR cultures are not sent initially). Later changed to IV vancomycin, IV metrogyl and IV ciprofloxacin for a day on 12/10/16 after the repeat respiratory cultures are postive for E.Coli in respiratory cultures taken on dec 09 and 1 set of Blood cultures are positive for gram positive cocci. However changed to IV ceftriaxone and IV flagyl on 12/11 as second set of blood cultures are negative for 2 days. Underwent repeat laparotomy today with pus draining from 2 regions on 12/12/16 and OR cultures are sent. Today they grew Gram postitive cocci and gram negative rods. Awaiting senstivities. Started on Meropenem 1gm Q8 IV today. New onset Atrial Fibriallation in the setting of sepsis postoperativey Started on Amiodarone drip and after 5hrs changed to NSR on 12/05/16. The drip was discontinued on 12/06/16. He remained in sinus rhythm after that event and never placed on anticoagulation. Right Cephalic vein thrombosis Right arm found to have superficial thrombosis in right cephalic vein on 12/07/16. Thought it could be a source of fever. Warm compressors without any anticoagulation is provided as it is superficial vein thrombosis. He had a peripheral line in that region at the time of surgery. Metabolic: JUANA Currently resolved with creatinine of 1.0 today. Creatinine at the time of admission is 1.1. However Post op - increased to 1.3 then 1.5. In's and Outs are closely monitored and also received several single doses of 40mg furosemide as per the fluid status of the patient. Goal is to maintain negative fluid balance. Alimentary: NPO with NG decompression. TPN - day 5. Bowel sounds present, doing well now. Hypernatremia Initially placed on D5NS @150ml/hr as his creatinine is increasing. His sodium creaped up slowly so placed on D5W later. After starting TPN he is not provided with any sodium to prevent further worsening. His sodium today is 143. Monitor daily and dose TPN accordingly. Neurological: Intubated and sedated Skin: Colostomy bag in place with active drainage. After the procedure today placed on JIAN drain and [place] drain. Dressed well. DVT/Prophylaxis: sc lovenox Code Status: Full Code Complications: again went to OR on 12/12/16 for revisional drianage and found 2 pus pockets. Significant Procedures: ECHO CONCLUSIONS Left ventricular wall thickness at upper limits of normal. Normal left ventricular ejection fraction visually estimated at >65 Normal left atrial size. Mild thickening/calcification of the mitral valve leaflets. Mild mitral annular calcification. Diffuse thickening of the aortic valve cusps with minimally reduced excursion. No aortic stenosis. Right ventricular systolic pressure estimated to be within the normal range at 29 mmHg. The aortic root is upper limits of normal in size. The ascending aorta is mildly dilated at 3.[address] abdomen and pelvis - on 12/02/16 IMPRESSION: Intra-abdominal free air consistent with a perforation. There is a large left inguinal hernia containing colon with internal foci of gas is well. A larger area of gas is seen in the anterior central abdomen with a heterogeneous appearance, either suggesting a combination of stool components or dissection through the mesenteric fat. There is mild wall thickening of the sigmoid colon noted with mild adjacent stranding. This portion of the bowel is decompressed which limits the evaluation. Impression deformity of the T11 vertebral body is new from the prior CT performed 12/23/2015. CT abdomen and pelvis on december 05 IMPRESSION: 1. There is a small to moderate volume of ascites. There is extensive mesenteric edema as well as small pleural effusions and anasarca. Appearance is nonspecific and may all be postoperative in etiology. 2. There is a subtle prominence of proximal small bowel loops. An early jejunal bowel obstruction should be considered and follow-up is advised. Potential etiologies include postsurgical changes in the left lower quadrant or a large left internal hernia. 3. Bowel wall thickening of the ascending and transverse colon consistent with colitis. Patent diverting descending colostomy. Intact appearance to Kirkland's pouch. 4. Left greater than right basilar consolidation is likely compressive atelectasis but pneumonia cannot be excluded in the setting of a postoperative fever. 5. Emphysema. 6. Evidence of prior granulomatous disease with calcified mediastinal and left hilar nodes, left lower lobe calcified nodule and hepatic calcifications. 7. A distended gallbladder with minimal nonspecific wall thickening in the setting of ascites. Cholecystitis is not suspected. 8. Partially collapsed, sclerotic T11 vertebral body of uncertain etiology. 9. 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 Aortic valvular calcifications. Echocardiography would be helpful in this regard. Vee CT - dec 09 IMPRESSION: CT CHEST: Persistent bibasilar atelectasis and bilateral pleural effusions, similar to the prior CT scan 12/05/2016. CT ABDOMEN PELVIS: Persistent loculated fluid collections through the mesentery unchanged significantly in volume or size since the prior exam of 12/05/2016. The dilated small bowel loops on the CT scan of 12/05/2016 have resolved. There is decreasing colonic wall thickening since the prior CT scan. Patient has a left-sided colostomy without obstruction. Head CT: IMPRESSION: Significantly limited examination secondary to motion and beam hardening artifact. Within these limitations, there is no definite acute intracranial abnormality detected. No intracranial hemo Pertinent Lab Results: as above. Assessment/Plan: as above.
[2016-12-13 16:00] VITALS: BP 120/70
[2016-12-14] VITALS: BP 98/00
[2016-12-14 05:08] LABS: ABSOLUTE BASOPHIL COUNT 0 /CUMM (0.0-0.2); ABSOLUTE EOSINOPHIL COUNT 0.2 /CUMM (0.0-0.7); ABSOLUTE GRANULOCYTE CT 12.2 /CUMM (1.4-6.5); ABSOLUTE LYMPH COUNT 1.2 /CUMM (1.2-3.4); ABSOLUTE MONOCYTE COUNT 0.7 /CUMM (0.10-0.60); BASOPHIL % 0.1 % (0.0-2.0); EOSINOPHIL % 1.1 % (0-5); GRANULOCYTE % 85.6 % (42.2-75.2); HEMATOCRIT 29.1 % (42-52); MEAN CORPUSCULAR HGB CONC 33.9 G/DL (33.0-37.0); MEAN CORPUSCULAR VOLUME 82.8 FL (80.0-94.0); MEAN PLATELET VOLUME 9.1 FL (7.4-10.4); PLATELET COUNT 328 /CUMM (130-400); RBC DISTRIBUTION WIDTH 16.7 % (11.5-14.5); RED BLOOD CELL CT 3.52 /CUMM (4.70-6.10); WHITE BLOOD CELL COUNT 14.3 /CUMM (4.8-10.8)
--- NOTE | 2016-12-14 07:01 | PN- Resident CRCU ---
Subjective HPI/CRCU Issues: Patient is arousable only for tactile stimulation. She is unable to provide any review of systems. 24 Hour Events: Pt seen and examined at bed side HR was 100-74. last shift pulse was in the high 70s to low 80s BP highest was 169/85. For most of yesterday it was within normal limits TMax 102. Intake 2909 and output is 2320 (+600CC) Arousable to tactile stimuli only. Objective Vital Signs & I&O Last 8 Hrs of Vitals and I&O: Intake & Output 12/14 0800 Intake Total 809.0 Output Total 480 Balance 329.0 Intake, IV 172 Intake, Lipid 115.0 Intake, Oral 0 Intake, 522 TPN/PPN Output, 40 Drainage Output, 50 Gastric Drainage Output, Stool 40 Output, Urine 350 Patient 103.561 kg Weight Exam General Appearance: sedated, intubated Head: atraumatic Respiratory: crackles (mild on base b/l) Cardiovascular: regular rate/rhythm Gastrointestinal: wound with small mucopurulent drainage, no erythema, swelling or warmth around Stoma., Mucopurulent drainage in JPs Extremities: new +2 B/L LE edema Cranial Nerves: PERRL Weaning Parameters NIF: 42 Minute Volume: 13 Resp rate: 24 Vt: 520 Heart Rate: 107 Weaning Schedule Start Time: 0940 Minute Volume: 13 Resp Rate: 24 Vt: 520 Heart Rate: 107 Current Medications: Current Medications Sig/Ar Start time Last Medication Dose Route Stop Time Status Admin Acetaminophen 1,000 MG Q6P PRN 12/04 1945 AC 12/13 N/A 1 UNIT IV 1100 Albuterol Sulfate 3 ML EVERY 4 HRS/AWAKE 12/06 1600 AC 12/14 INH 1148 Ceftriaxone Sodium 1,000 MG DAILY 12/14 1000 AC 12/14 IV 1029 Fat Emulsion 375 ML 1900 12/14 1900 AC Intravenous IV 12/15 1859 Fat Emulsion 375 ML 1900 12/13 1900 AC 12/13 Intravenous IV 12/14 1859 1856 Fat Emulsion 375 ML 1900 12/12 1900 DC 12/12 Intravenous IV 12/13 1859 1832 Fentanyl Citrate 1,000 MCG Q10H 12/14 1115 AC Sodium Chloride 250 ML IV Fentanyl Citrate 1,000 MCG Q13H 12/12 0815 DC 12/14 Sodium Chloride 250 ML IV 0919 Fluconazole 400 MG DAILY 12/14 1005 AC 12/14 Sodium Chloride 200 ML IV 1141 Furosemide 40 MG ONCE ONE 12/14 1000 DC 12/14 IV 12/14 1001 1057 Heparin Sodium 5,000 UNIT Q8 12/02 2200 AC 12/14 (Porcine) SC 1354 Ipratropium [place] 2.5 ML EVERY 4 HRS/AWAKE 12/06 1600 AC 12/14 INH 1148 Ketorolac 30 MG ONCE ONE 12/13 1915 DC 12/13 Tromethamine IV 12/13 191 1915 Ketorolac 15 MG .STK-MED ONE 12/13 1909 DC Tromethamine IM 12/13 191 Lorazepam 1 MG Q4P PRN 12/13 1715 AC 12/14 IV 0918 Lorazepam 0.5 MG Q4P PRN 12/12 0230 DC 12/12 IV 2121 Meropenem 1 GM Q8H 12/13 1200 DC 12/14 IV 0412 Metronidazole 500 MG IQ8 12/14 1600 N/A 1 UNIT IV Ondansetron HCl 4 MG Q6P PRN 12/02 1800 IV Pantoprazole Sodium 40 MG DAILY 12/02 2200 AC 12/14 IV 0918 Patient Medication 1 UNIT ONE NR 12/14 1045 Teaching ED 12/14 1645 Patient Medication 1 UNIT ONE NR 12/14 1000 Teaching ED 12/14 1600 Petrolatum 1 CECY DAILY NEEDED PRN 12/11 2215 12/14 OPH 1057 Total Parenteral 1 UNIT 1900 12/14 1900 Nutrition IV 12/15 1859 Total Parenteral 1 UNIT 1900 12/13 1900 DC Nutrition IV 12/13 1901 Total Parenteral 1 UNIT 1900 12/13 1900 12/13 Nutrition IV 12/14 1859 1856 Total Parenteral 1 UNIT 1900 12/12 1900 PA 12/12 Nutrition IV 12/13 1859 1832 Impression/Plan Impression/Problem List Impression: 89/M with PMH of asthma, HTN, bilateral inguinal hernia s/p repair 30 years ago presented to [facility] on 12/12/15 c/o acute abdominal pain. He was found to have acute perforation of sigmoid colon complicated by peritonitis. He underwent emergent surgery with Henny's procedure. He was subsequently sent to ICU for hemodynamic stabilization, further care as patient is at high risk for infection/respiratory failure post extubation. Today he is still intubated, ventilated, slightly arousable, and spiking fevers. Plan Respiratory: #Respiratory failure. Patient has history of COPD. Today there is increased bibasilar opacities. Pt has new onset lateral lower extremity edema may fluid overload likely in this patinet. * On fentanyl drip, was increased today from 75 to 100/h because patient's spontaneous breathing was faster than the ventilation sitting. We cannot go any higher on fentanyl drip to avoid hypotension * Intubated and mechanically ventilated. His ventilation sitting was adjusted earlier today. Decrease his tidal volume to 500 and respiratory rate to 16 Infectious Diseases: #Recurrent Fever explaratory laparotomy. Post op day #12 Underwent repeat drainage yesterday, now patient has JIAN tubes placed. OR cultures are sent and positive for Gram postive cocci and gram negative rods. * He is still febrile with Tmax of 102 yesterday. * Per ID consult we will switch IV meropenem Q8 1gm to Ceftriaxone 1 g IV every 24 hours and Flagyl 500 mg IV every 8 hours * We will continue IV tylenol and cooling blankets. Cardiovascular: #New onset A. fib postoperativey. Patient developed A. fib post operative, most likely patient was on stress because of sepsis. He was started on amiodarone drip, patient then converted back to normal sinus rhythm after which a major on trip was discontinued. Currently he is maintaining normal sinus rhythm #New onset bilateral lower extremity edema. Bilateral lower extremity Doppler was done to exclude DVTs as a possible explanation. Results came back negative for DVTs. #Right Cephalic vein thrombosis Patient was found to have superficial thrombosis in right cephalic vein. He had a peripheral line in that region at the time of surgery. This thrombosis is a superficial and most likely will not lead to any DVTs. * Warm compressors without any anticoagulation for now. Hematology: Patient was blood cell still 14.3, H&H and it dropped from 10.9 and 32 yesterday to 9.9 and 29.1 today. INR is 1.46 * We'll repeat CBC tomorrow * We repeat coagulation profile Metabolic: #JUANA (Resolved) Today creatinine is 8.0. At some point during this admission patient's creatinine went up to 1.6. Patient last input output were Intake 2909 and output is 2320 (+600CC) * Patient will receive 40 mg IV Lasix once * We will monitor his fluid balance. Alimentary: * NPO with NG decompression * TPN - day 5. * Colostomy bag in place with active drainage * cont' JIAN drain * Bowel sounds present, doing well now * Surgery is on board we will follow their recommendation. Neurological: On fentanyl drip as 100 mL per hour. Patient is arousable to tactile stimulus. Endocrinology No endocrinology issue at the time SKI No sign of ischemia or inflammation around ostomies, IVs, or tubes Diet patient is nothing by mouth * We'll continue TPN DVT/Prophylaxis: sc lovenox Code Status: Full Code Problem List: 1. Asthma 2. Left inguinal hernia 3. Peritonitis 4. COPD (chronic obstructive pulmonary disease) Pain Ratin Tomorrow's Labs & Rationales: CBC and ICU bundle Plan DVT/Prophylaxis: sc lovenox Code Status: Full Code
[2016-12-14 08:00] VITALS: BP 130/70
--- NOTE | 2016-12-14 08:58 | RADIOLOGY REPORT ---
EXAMINATION: XR PORTABLE CHEST CLINICAL INFORMATION: 89-year-old male for tube check. On mechanical ventilation. COMPARISON: Chest done on 12/13/2016. TECHNIQUE: Portable view of the chest was obtained. FINDINGS: The tip of the endotracheal tube is located approximately 3.9 cm above the level of the fernando. The tip of the left-sided PICC line appears in good position. The enteric tube is not well-visualized due to under exposure, accordingly not optimally localized. Both lung gay are symmetrically expanded. Prominent bronchovascular markings are noted throughout both lung gay with patchy airspace disease at left lung base, appears similar to prior study. The cardiomediastinal silhouette is mildly enlarged. There is no pleural effusion present. The visualized upper abdomen is unremarkable. IMPRESSION: 1. The tip of the endotracheal tube is located approximately 3.9 cm above the level of the fernando. 2. The position of the enteric tube is not visualized due to underexposure. 3. The tip of the PICC line appear in good position. 4. No significant change within the lung parenchyma since the prior study. 5. No radiographic evidence of definite pleural effusion.
--- NOTE | 2016-12-14 09:56 | PN- General Surgery ---
See Addendum Subjective Subjective: 12/02/16- ANA'S FOR SIGMOID PERF 12/12/16- ABDOMINAL WASH OUT REMAINS INTUBATED SEDATED NOT AGITATED THIS AM CONTINUES TO HAVE LOW GRADE TEMPS MAKING CLEAR URINE 60-75CC/HR LEUKOCYTOSIS NOT INCREASING Objective Vital Signs and I&Os Vital Signs Date Time Temp Pulse Resp B/P Pulse O2 O2 Flow FiO2 Ox Delivery Rate 12/14 0813 30 12/14 0800 99.9 87 23 130/70 98 Ventilator 30% 12/14 0800 98 Ventilator 30% 12/14 0540 30 12/14 0400 98 Ventilator 30% 12/14 0320 30 12/14 0048 30 12/14 0000 98 Ventilator 30% 12/14 0000 98.9 74 20 98/00 98 Ventilator 30% 12/13 2246 30 12/13 2000 98 Ventilator 30% 12/13 1900 30 12/13 1707 Ventilator 40% 12/13 1618 30 12/13 1600 99 Ventilator 30% 12/13 1600 100.0 90 23 120/70 99 Ventilator 30% 12/13 1348 30 12/13 1200 92 Ventilator 30% 12/13 1159 100.0 12/13 1107 30 12/13 1100 102.0 Intake & Output 12/14 1600 12/14 0800 12/14 0000 12/13 1600 12/13 0800 12/13 0000 Intake Total 809.0 821.0 1279 1273 1991 Output Total 547 118 9349 1330 3065 Balance 329.0 181.0 79 -57 -1073 Intake, IV 035 551 5787 1273 1991 Intake, Lipid 115.0 114.0 Intake, Oral 0 0 0 Intake, 522 520 TPN/PPN Number 0 Bowel Movements Output, 40 40 50 90 125 Drainage Output, 50 50 250 200 100 Gastric Drainage Output, Other 25 Output, Stool 40 50 0 20 75 Output, Urine 350 266 906 0740 2740 Patient 240 lb Weight Physical Exam: CV: RRR LUNGS: MILD CRACKLES IN BASES ABD: WOUND WITH SMALL AMOUNT MUCOPURULENT DRAINAGE NO CELLULITIS PRESENT STOMA SWOLLEN, NO EVIDENCE OF ISCHEMIA SEROUS FLUID IN OSTOMY MUCOPURULENT DRAINAGE IN JIAN EXT: LEGS WARM PALPABLE PULSES DISTALLY Assessment/Plan Assessment/Plan REMAINS CRITICAL AND GUARDED PLAN CONT CURRENT ICU PROTOCOL PARENTERAL NUTRITION SERIAL ABDOMINAL EXAMS WILL DISCUSS ATTENDING Core Measures/Miscellaneous Edward Catheter Date In: 12/02/16 Venous Thromboembolism VTE Risk Factors: Acute medical illness, Age > 40, Surgery VTE Contraindications: No Contraindications VTE Prophylaxis Ordered Inpt Mech & Pharm VTE Diagnosis: No Beta Abelardo Is Beta Abelardo a Home Med? No Antibiotics Is Patient on Antibiotics? Yes If Yes: infection
--- NOTE | 2016-12-14 09:59 | PN- Infect Dx ---
Subjective Subjective: MAXIMUM TEMPERATURE 102. Objective Last 24 Hrs of Vital Signs/I&O Vital Signs Date Time Temp Pulse Resp B/P Pulse O2 O2 Flow FiO2 Ox Delivery Rate 12/14 0813 30 12/14 0800 99.9 87 23 130/70 98 Ventilator 30% 12/14 0800 98 Ventilator 30% 12/14 0540 30 12/14 0400 98 Ventilator 30% 12/14 0320 30 12/14 0048 30 12/14 0000 98 Ventilator 30% 12/14 0000 98.9 74 20 98/00 98 Ventilator 30% 12/13 2246 30 12/13 2000 98 Ventilator 30% 12/13 1900 30 12/13 1707 Ventilator 40% 12/13 1618 30 12/13 1600 99 Ventilator 30% 12/13 1600 100.0 90 23 120/70 99 Ventilator 30% 12/13 1348 30 12/13 1200 92 Ventilator 30% 12/13 1159 100.0 12/13 1107 30 12/13 1100 102.0 Intake & Output 12/14 1600 12/14 0800 12/14 0000 Intake Total 809.0 821.0 Output Total 480 640 Balance 329.0 181.0 Intake, IV 172 187 Intake, Lipid 115.0 114.0 Intake, Oral 0 0 Intake, 522 520 TPN/PPN Output, 40 40 Drainage Output, 50 50 Gastric Drainage Output, Stool 40 50 Output, Urine 350 500 Patient 240 lb Weight Physical Exam Other Physical Findings: He remains sedated though responsive to pain Lungs are clear Heart regular rhythm with no murmur Abdomen is distended, incision with mild erythema, drainage in place with seropurulent fluid; colostomy with light colored liquid stool Extremities 1+ edema of both lower extremities with decreased edema of the upper extremities; PICC in the left upper extremity with no inflammation at the site Edward catheter remains in place Results Last 24 Hours of Lab Results: Laboratory Tests 12/14 12/13 0405 1915 Blood Gas pH (7.35 - 7.45 PH) 7.42 pCO2 (35 - 45 TORR) 34 L pO2 (80 - 100 TORR) 87 HCO3 (21 - 28 MEQ/L) 22 ABG O2 Sat (Measured) (>96.0 %) 96.0 P-50 (Temp Corrected) N Carboxyhemoglobin (1.5 - 5.0 %) 0.4 L O2 Concentration % 30% Temperature (97.0 - 100.0 FARH) 99.2 Respiration Rate (BPM) 20 O2 Delivery Method ESPRIT Vent Mode AC Expiratory Pressure (CMH2O/P) 5 Tidal Volume (CC) 550 Chemistry Sodium (137 - 145 mmol/L) 142 Potassium (3.5 - 5.1 mmol/L) 3.9 Chloride (98 - 107 mmol/L) 110 H Carbon Dioxide (22 - 30 mmol/L) 24 Anion Gap (5 - 16) 7 BUN (9 - 20 mg/dL) 28 H Creatinine (0.7 - 1.2 mg/dL) 0.8 Estimated GFR (>60 ml/min) > 60 Glucose (65 - 99 mg/dL) 176 H Calcium (8.4 - 10.2 mg/dL) 6.9 L Phosphorus (2.5 - 4.5 mg/dL) 3.4 Magnesium (1.6 - 2.3 mg/dL) 1.9 Total Bilirubin (0.2 - 1.3 mg/dL) 0.6 AST (17 - 59 U/L) 46 ALT (21 - 72 U/L) 32 Albumin (3.5 - 5.0 g/dL) 1.8 L Hematology CBC w Diff MAN DIFF ORDERED WBC (4.8 - 10.8 /CUMM) 14.3 H RBC (4.70 - 6.10 /CUMM) 3.52 L Hgb (14.0 - 18.0 G/DL) 9.9 L Hct (42 - 52 %) 29.1 L MCV (80.0 - 94.0 FL) 82.8 MCH (27.0 - 31.0 PG) 28.0 RDW (11.5 - 14.5 %) 16.7 H Plt Count (130 - 400 /CUMM) 328 MPV (7.4 - 10.4 FL) 9.1 Gran % (42.2 - 75.2 %) 85.6 H Lymphocytes % (20.5 - 51.1 %) 8.2 L Monocytes % (1.7 - 9.3 %) 5.0 Eosinophils % (0 - 5 %) 1.1 Basophils % (0.0 - 2.0 %) 0.1 Absolute Granulocytes (1.4 - 6.5 /CUMM) 12.2 H Segmented Neutrophils (42.2 - 75.2 %) 84 H Band Neutrophils (0.0 - 5.0 %) 7 H Absolute Lymphocytes (1.2 - 3.4 /CUMM) 1.2 Lymphocytes (20.5 - 51.1 %) 3 L Monocytes (1.7 - 9.3 %) 1 L Absolute Monocytes (0.10 - 0.60 /CUMM) 0.7 H Eosinophils (0 - 5.0 %) 2 Absolute Eosinophils (0.0 - 0.7 /CUMM) 0.2 Absolute Basophils (0.0 - 0.2 /CUMM) 0 Metamyelocytes (0.0 - 1.0 %) 3 H Platelet Estimate (ADEQUATE) ADEQUATE Polychromasia 1+ Anisocytosis 1+ PUBS MCHC (33.0 - 37.0 G/DL) 33.9 Miscellaneous Phlebotomy Draw Site LEFT RADIAL Other Body Source Fld Total RBCs Counted (%) 100 Last 24 Hours of Adrian Results: OR culture positive for Escherichia coli sensitive to Ceftriaxone, alpha strep and yeast Blood cultures 2 December 11 remain negative Recent Imaging Studies: Chest x-ray December 14, personally reviewed, reveals minimal left lower lobe density, without significant change from the previous study Assessment/Plan Impression: Fevers persist, though perhaps lower grade overnight, with persistent leukocytosis now 2 days status post repeat laparotomy for drainage of intraperitoneal abscesses, now 12 days status post initial Kirkland's procedure for peritonitis secondary to perforated viscus, with the recent OR culture positive for Escherichia coli, alpha strep and yeast. He was changed to Meropenem yesterday, but, given the recent cultures, his antibiotics can again be adjusted. The significance of yeast when isolated with other organisms is unclear but, given his overall poor status, feel that this should be covered. Suggestion: 1. Discontinue Meropenem 2. Restart Ceftriaxone 1 g IV every 24 hours and Flagyl 500 mg IV every 8 hours 3. Begin Fluconazole 400 mg IV every 24 hours
--- NOTE | 2016-12-14 10:28 | PN- CRCU ---
Subjective HPI/Critical Care Issues: Patient seen and examined. 600cc + arousable, ros limited given sedation on fentanyl drip tpn febrile 102 max 99.5 currently 14.3 wbc Objective Current Medications: Current Medications Sig/Ar Start time Last Medication Dose Route Stop Time Status Admin Acetaminophen 1,000 MG .STK-MED ONE 12/13 1040 DC IV 12/13 1041 Acetaminophen 1,000 MG Q6P PRN 12/04 1945 AC 12/13 N/A 1 UNIT IV 1100 Albuterol Sulfate 3 ML EVERY 4 HRS/AWAKE 12/06 1600 AC 12/14 INH 0822 Ceftriaxone Sodium 1,000 MG DAILY 12/14 1000 AC IV Ceftriaxone Sodium 1,000 MG DAILY@1900 12/11 1900 DC 12/12 IV 1832 Fat Emulsion 375 ML 1900 12/13 1900 AC 12/13 Intravenous IV 12/14 1859 1856 Fat Emulsion 375 ML 1900 12/12 1900 DC 12/12 Intravenous IV 12/13 1859 1832 Fentanyl Citrate 1,000 MCG Q13H 12/12 0815 AC 12/14 Sodium Chloride 250 ML IV 0919 Fluconazole 400 MG DAILY 12/14 1005 UNVr Sodium Chloride 200 ML IV Furosemide 40 MG ONCE ONE 12/14 1000 DC IV 12/14 1001 Heparin Sodium 5,000 UNIT Q8 12/02 2200 AC 12/14 (Porcine) SC 0544 Ipratropium [place] 2.5 ML EVERY 4 HRS/AWAKE 12/06 1600 AC 12/14 INH 0823 Ketorolac 30 MG ONCE ONE 12/13 1915 DC 12/13 Tromethamine IV 12/13 1916 1915 Ketorolac 15 MG .STK-MED ONE 12/13 1909 DC Tromethamine IM 12/13 1910 Lorazepam 1 MG Q4P PRN 12/13 1715 AC 12/14 IV 0918 Lorazepam 0.5 MG Q4P PRN 12/12 0230 DC 12/12 IV 2121 Meropenem 1 GM Q8H 12/13 1200 DC 12/14 IV 0412 Metronidazole 500 MG IQ8 12/14 1600 AC N/A 1 UNIT IV Metronidazole 500 MG IQ8 12/10 1600 DC 12/13 N/A 1 UNIT IV 0800 Ondansetron HCl 4 MG Q6P PRN 12/02 1800 AC IV Pantoprazole Sodium 40 MG DAILY 12/02 2200 AC 12/14 IV 0918 Patient Medication 1 UNIT ONE NR 12/14 1000 Teaching ED 12/14 1600 Petrolatum 1 CECY DAILY NEEDED PRN 12/11 2215 AC 12/12 OPH 2130 Total Parenteral 1 UNIT 12/13 1900 DC Nutrition IV 12/13 1901 Total Parenteral 1 UNIT 12/13 1900 AC 12/13 Nutrition IV 12/14 1859 1856 Total Parenteral 1 UNIT 12/12 190 DC 12/12 Nutrition IV 12/13 1859 1832 Vital Signs & I&O Last 24 Hrs of Vitals and I&O: Vital Signs Date Time Temp Pulse Resp B/P Pulse O2 O2 Flow FiO2 Ox Delivery Rate 12/14 0813 30 12/14 0800 99.9 87 23 130/70 98 Ventilator 30% 12/14 0800 98 Ventilator 30% 12/14 0540 30 12/14 0400 98 Ventilator 30% 12/14 0320 30 12/14 0048 30 12/14 0000 98 Ventilator 30% 12/14 0000 98.9 74 20 98/00 98 Ventilator 30% 12/13 2246 30 12/13 2000 98 Ventilator 30% 12/13 1900 30 12/13 1707 Ventilator 40% 12/13 1618 30 12/13 1600 99 Ventilator 30% 12/13 1600 100.0 90 23 120/70 99 Ventilator 30% 12/13 1348 30 12/13 1200 92 Ventilator 30% 12/13 1159 100.0 12/13 1107 30 12/13 1100 102.0 Intake & Output 12/14 1600 12/14 0800 12/14 0000 Intake Total 809.0 821.0 Output Total 480 640 Balance 329.0 181.0 Intake, IV 172 187 Intake, Lipid 115.0 114.0 Intake, Oral 0 0 Intake, 522 520 TPN/PPN Output, 40 40 Drainage Output, 50 50 Gastric Drainage Output, Stool 40 50 Output, Urine 350 500 Patient 240 lb Weight Exam Other Physical Findings: gen arousable, but sedated heent ett cvs s1, s2 lungs transmitted abd soft bs+, dressing intact, no pus ext 2+ edema Results Last 24 Hrs of Lab Results: Laboratory Tests 12/14/16 0405: Anion Gap 7, Estimated GFR > 60, Glucose 176 H, Calcium 6.9 L, Phosphorus 3.4, Magnesium 1.9, Total Bilirubin 0.6, AST 46, ALT 32, Albumin 1.8 L, CBC w Diff MAN DIFF ORDERED, RBC 3.52 L, MCV 82.8, MCH 28.0, RDW 16.7 H, MPV 9.1, Gran % 85.6 H, Lymphocytes % 8.2 L, Monocytes % 5.0, Eosinophils % 1.1, Basophils % 0.1, Absolute Granulocytes 12.2 H, Segmented Neutrophils 84 H, Band Neutrophils 7 H, Absolute Lymphocytes 1.2, Lymphocytes 3 L, Monocytes 1 L, Absolute Monocytes 0.7 H, Eosinophils 2, Absolute Eosinophils 0.2, Absolute Basophils 0, Metamyelocytes 3 H, Platelet Estimate ADEQUATE, Polychromasia 1+, Anisocytosis 1+, PUBS MCHC 33.9, Fld Total RBCs Counted 100 12/13/161914: pH 7.42, pCO2 34 L, pO2 87, HCO3 22, ABG O2 Sat (Measured) 96.0, P-50 (Temp Corrected) N, Carboxyhemoglobin 0.4 L, O2 Concentration % 30%, Temperature 99.2 , Respiration Rate 20, O2 Delivery Method ESPRIT, Vent Mode AC, Expiratory Pressure 5, Tidal Volume 550, Phlebotomy Draw Site LEFT RADIAL Impression/Plan Impression/Plan Impression/Plan: Impression 89 year old man * 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 for acute abdominal perforation * Respiratory failure with increased bibasilar opacities, maybe fluid overload * History of obstructive lung disease * E.coli and yeast in cultures Plan Respiratory - Monitor chest x-rays and ABGs - TRC/Nebs - reduce tv 500, rr 16, sedation if bp allows ID - ceftriaxone/flagyl - f/u ID, surgery recommendations CVS - monitor hemodynamics - Superficial cephalic vein thrombosis will need warm compresses - check LE dopplers given edema Heme - monitor cbc, coags Metabolic - ins/outs, malnourished Alimentary - TPN - surgical follow up Neuro - sedation as necessary for comfort DVT prophylaxis at all times TTS 40 min Will continue to have ongoing discussion regarding goals of care. Consideration for trach this week if no deterioration. Code Status: Full Code
--- NOTE | 2016-12-14 11:26 | NUR ---
@0800-PT AROUS, OPENS EYES TO VERBAL STIM/TACTILE STIM. NOT FOLLOWING COMMANDS AT THIS TIME. FENT GTT INFUSING AT 75MCG. PRN ATIVAN. CONT ON VET-NO CHANGE TO VENT SETTINGS AT THIS TIME. PIP 30-40. HOUSESTAFF AWARE. MIN SECRETIONS NOTED-MOUTH CARE PROVIDED. NEBS Q4HRS PER RT. RHONCHI AUSCULTATED. NSR HR 80S. BP STABLE. NGT CONT TO R NARES-LWS. ABD DISTENDED/FIRM. +BS AUSCULTATED. COLOSTOMY-SUH LIQ NOTED IN BAG. STOMA PINK AND EDEMATOUS. ANN IN PLACE WITH ADEQUATE OUTPUT NOTED. SKIN-BLISTERS NOTED TO ABD, SURG SITE. STAPLE INCISION TO MIDLINE ABD WITH MULT PACKED AREAS. JIAN NOTED TO LOWER ABD ALONG WITH JOSÉ MIGUEL DRAIN. DSG CDI. WEEPING BUE/ELEVATED ON PILLOWS AND DISPOSABLE PADS. SCROTAL AND PENILE EDEMA +3. +3 BLE EDEMA NOTED. ALPS IN PLACE. COOLING BLANKET REMAINS IN PLACE ON LOWEST SETTING. TEMP RANGE 99-100 THIS AM. TPN/LIPID CONT TO INFUSE THROUGH BILLY PICC. LABS WNL. CONT TO MONITOR, FAMILY UPDATED,
--- NOTE | 2016-12-14 11:34 | NUR ---
@0900-FENT GTT INCREASED TO 87.5MCG DUE TO INCREASED RESTLESSNESS AND TACHYPNEA RR 27-30, HIGH PEAK PRESSURES. HOUSESTAFF AWARE.
--- NOTE | 2016-12-14 11:34 | NUR ---
@1000-DR MURRELL AND HOUSESTAFF AT BEDSIDE FOR ROUNDING, FAMILY INVOLVED IN AM ASSESSMENT. PLAN DISCUSSED. CHANGES MADE TO VENT-AC RATE DECREASED FROM 20 TO 16 AND VT DECREASED TO 500 FROM 550-BY DR MURRELL. IV ABX CHANGED. MEROPENUM DC'D AND PT TO RECIEVE IV ROCEPHIN, FLAGYL AND DIFLUCAN WHEN ARRIVES FROM PHARMACY. PT WILL ALSO RECIEVE 1X LASIX 40MG PER ORDER.
--- NOTE | 2016-12-14 11:36 | NUR ---
@1100-FENT GTT INCREASED TO 100MCG DUE TO INCREASE RR AND RESTLESSNESS. PT ALSO MEDICTED WITH ATIVAN AT 0930. IV ROCEPHIN AND IV LASIX ADMINISTERED AT THIS TIME. AWAITING DIFLUCAN FROM PHARMACY. PT REPOSITIONED AND DSG CHANGED TO SURG INCISION. CONT TO MONITOR CLOSELY.
--- NOTE | 2016-12-14 13:04 | NUR ---
@1230-BLE DOPPLER US BEING DONE AT BEDSIDE. CONT TO MONITOR, CALL BENITES WITHIN REACH.
--- NOTE | 2016-12-14 13:36 | ULTRASOUND REPORT ---
EXAMINATION: US TRIPLEX LOWER EXTREMITY, BILATERAL CLINICAL INFORMATION: Evaluate for deep vein thrombosis. Suspect thrombosis in both lower extremities COMPARISON: Ultrasound 12/05/2016 TECHNIQUE: Color-flow triplex imaging with spectral analysis and compression Doppler were performed on the bilateral lower extremities. FINDINGS: Respiratory variation, normal compression and augmented flow are noted throughout the bilateral lower extremities. The visualized common femoral vein, superficial femoral vein, profunda femoral vein, popliteal vein and mid calf peroneal and posterior tibial venous segments show no evidence of deep venous thrombosis. There is no Abbott's cyst. IMPRESSION: Normal triplex scan without evidence of deep venous thrombosis involving the bilateral lower extremities.
[2016-12-14 16:00] VITALS: BP 118/74
[2016-12-15] VITALS: BP 122/64
--- NOTE | 2016-12-15 05:53 | PN- General Surgery ---
See Addendum Subjective Subjective: The patient was seen this morning postoperatively. He remains intubated and sedated. Per nursing there no significant issues overnight his MAXIMUM TEMPERATURE was 101.8. Objective Vital Signs and I&Os Vital Signs Date Time Temp Pulse Resp B/P Pulse O2 O2 Flow FiO2 Ox Delivery Rate 12/15 0525 30 12/15 0346 100.1 12/15 0334 30 12/15 0230 101.5 12/15 0126 30 12/15 0000 100.1 76 24 122/64 97 Ventilator 30% 12/15 0000 98 Ventilator 30% 12/14 2213 30 12/14 2000 97 Ventilator 35% 12/14 1940 30 12/14 1620 30 12/14 1600 99.5 91 29 118/74 98 Ventilator 2.0L 12/14 1600 96 Ventilator 30% 12/14 1321 30 12/14 1200 97 Ventilator 30% 12/14 1048 30 12/14 0813 30 12/14 0800 99.9 87 23 130/70 98 Ventilator 30% 12/14 0800 98 Ventilator 30% Intake & Output 12/15 0800 12/15 0000 12/14 1600 12/14 0800 12/14 0000 12/13 1600 Intake Total 1192.0 1193.0 809.0 821.0 1279 Output Total 810 2320 736 256 1431 Balance 382.0 -1127.0 329.0 181.0 79 Intake, IV 371 474 433 669 0753 Intake, Lipid 239.0 130.0 115.0 114.0 Intake, Oral 0 0 0 0 0 Intake, 582 589 522 520 TPN/PPN Number 0 Bowel Movements Output, 40 40 40 40 50 Drainage Output, 40 60 50 50 250 Gastric Drainage Output, Stool 0 20 40 50 0 Output, Urine 730 2200 350 500 900 Patient 240 lb Weight Physical Exam: Gen.: Intubated and sedated Skin: Warm and dry Abdomen: Softly distended, bowel sounds sluggish. Surgical incision with clips in place and some mild surrounding erythema. There is a JIAN drain coming out inferior aspect of the wound which is intact and holding suction with mucopurulent drainage in and around the bulb. There remains significant scrotal edema. 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 There is some pitting edema as well. Assessment/Plan Assessment/Plan Assessment: 89-year-old male status post exploratory laparotomy and Kirkland's procedure for perforated sigmoid colon with subsequent return to the operating room for a washout. Postoperatively the patient's multiple issues including respiratory failure for which he is still ventilated. Plan: Continue nothing by mouth and NG tube decompression Follow-up morning laboratory studies and chest x-ray Reorder TPN Daily and when necessary dressing changes Keep JIAN to self suction Total respiratory care Continue IV antibiotics and follow-up OR cultures Continue care per consultation services recommendations GI and DVT prophylaxis Core Measures/Miscellaneous Edward Catheter Date In: 12/02/16 Venous Thromboembolism VTE Risk Factors: Acute medical illness, Age > 40, Surgery VTE Contraindications: No Contraindications VTE Prophylaxis Ordered Inpt Mech & Pharm VTE Diagnosis: No Beta Abelardo Is Beta Abelardo a Home Med? No Antibiotics Is Patient on Antibiotics? Yes If Yes: infection
[2016-12-15 05:56] LABS: ABSOLUTE BASOPHIL COUNT 0 /CUMM (0.0-0.2); ABSOLUTE EOSINOPHIL COUNT 0.2 /CUMM (0.0-0.7); ABSOLUTE GRANULOCYTE CT 12.2 /CUMM (1.4-6.5); ABSOLUTE LYMPH COUNT 1.3 /CUMM (1.2-3.4); ABSOLUTE MONOCYTE COUNT 0.6 /CUMM (0.10-0.60); BASOPHIL % 0.1 % (0.0-2.0); EOSINOPHIL % 1.3 % (0-5); GRANULOCYTE % 85.4 % (42.2-75.2); MEAN CORPUSCULAR HGB 27.7 PG (27.0-31.0); MEAN CORPUSCULAR HGB CONC 33.9 G/DL (33.0-37.0); MEAN CORPUSCULAR VOLUME 81.7 FL (80.0-94.0); MEAN PLATELET VOLUME 8.6 FL (7.4-10.4); PLATELET COUNT 365 /CUMM (130-400); RBC DISTRIBUTION WIDTH 15.6 % (11.5-14.5); WHITE BLOOD CELL COUNT 14.3 /CUMM (4.8-10.8)
--- NOTE | 2016-12-15 07:34 | PN- Resident CRCU ---
Subjective HPI/CRCU Issues: Patient is arousable to verbal and tactile stimulation. He is unable to provide any review of systems. 24 Hour Events: Pt seen and examined at bed side HR was stable on 91-71 BP was running low especially during the last 8 hours. 3 readings was within 80s/50s. Patient fentanyl decreased to 100 mL per hour. TMax 101.5 Intake 3380 and output is 3660 (-280CC) Arousable to tactile and verbal stimuli. Objective Vital Signs & I&O Last 8 Hrs of Vitals and I&O: Intake & Output 12/15 1600 Intake Total Output Total Balance Patient 106.679 kg Weight Exam General Appearance: sedated, intubated Head: atraumatic Respiratory: crackles (over both lungs) Cardiovascular: regular rate/rhythm Gastrointestinal: soft, very mildy distended. surgical incisions with clips in place. inccisions are surrounded by erythema which was not presented yesterday, JIAN drain mucopurulent fluid. Extremities: b/l LE edema Weaning Parameters NIF: 42 Minute Volume: 13 Resp rate: 24 Vt: 520 Heart Rate: 107 Weaning Schedule Start Time: 0940 Minute Volume: 13 Resp Rate: 24 Vt: 520 Heart Rate: 107 Current Medications: Current Medications Sig/Ar Start time Last Medication Dose Route Stop Time Status Admin Acetaminophen 1,000 MG Q6P PRN 12/04 194 AC 12/15 N/A 1 UNIT IV 0917 Albuterol Sulfate 3 ML EVERY 4 HRS/AWAKE 12/06 1600 AC 12/15 INH 1209 Ceftriaxone Sodium 1,000 MG DAILY 12/14 1000 DC 12/14 IV 1029 Fat Emulsion 375 ML 1900 12/15 1900 AC Intravenous IV 12/16 1859 Fat Emulsion 375 ML 1900 12/14 1900 AC 12/14 Intravenous IV 12/15 1859 1830 Fat Emulsion 375 ML 1900 12/13 1900 DC 12/13 Intravenous IV 12/14 1859 1856 Fentanyl Citrate 1,000 MCG Q10H 12/14 1115 AC 12/15 Sodium Chloride 250 ML IV 0430 Fluconazole 400 MG DAILY 12/14 1005 AC 12/15 Sodium Chloride 200 ML IV 0916 Heparin Sodium 5,000 UNIT Q8 12/02 2200 AC 12/15 (Porcine) SC 0551 Ipratropium [place] 2.5 ML EVERY 4 HRS/AWAKE 12/06 1600 AC 12/15 INH 1209 Ketorolac 15 MG ONCE ONE 12/15 1315 DC 12/15 Tromethamine IV 12/15 1316 1306 Ketorolac 30 MG ONCE ONE 12/15 1300 CAN Tromethamine IV 12/15 1301 Lorazepam 1 MG Q4P PRN 12/13 1715 AC 12/15 IV 0551 Magnesium Sulfate 1 GM ONCE ONE 12/15 1245 AC Dextrose/Water 100 ML IV 12/15 1644 Meropenem 1 GM Q8H 12/15 1000 AC 12/15 IV 1043 Metronidazole 500 MG IQ8 12/14 1600 DC 12/15 N/A 1 UNIT IV 0832 Ondansetron HCl 4 MG Q6P PRN 12/02 1800 AC IV Pantoprazole Sodium 40 MG DAILY 12/02 2200 AC 12/15 IV 0916 Patient Medication 1 UNIT ONE NR 12/14 1045 NJ Teaching ED 12/14 1645 Patient Medication 1 UNIT ONE NR 12/14 1000 NJ Teaching ED 12/14 1600 Petrolatum 1 CECY DAILY NEEDED PRN 12/11 2215 12/15 OPH 0549 Potassium Chloride 20 MEQ ONCE ONE 12/15 1245 DC 12/15 IV 12/15 1246 1306 Total Parenteral 1 UNIT 1900 12/15 1900 AC Nutrition IV 12/16 1859 Total Parenteral 1 UNIT 1900 12/14 1900 12/14 Nutrition IV 12/15 1859 1830 Total Parenteral 1 UNIT 1900 12/13 1900 DC 12/13 Nutrition IV 12/14 1859 1856 Impression/Plan Impression/Problem List Impression: 89/M with PMH of asthma, HTN, bilateral inguinal hernia s/p repair 30 years ago presented to [facility] on 12/12/15 c/o acute abdominal pain. He was found to have acute perforation of sigmoid colon complicated by peritonitis. He underwent emergent surgery with Henny's procedure. He was subsequently sent to ICU for hemodynamic stabilization, further care as patient is at high risk for infection/respiratory failure post extubation. Today he is still intubated, ventilated, slightly arousable, and spiking fevers. Plan Respiratory: #Respiratory failure. Patient has history of COPD. Today there is increased bibasilar opacities. Pt has new onset lateral lower extremity edema may fluid overload likely in this patinet. * On fentanyl drip, was decreased to 100 mL per hour because of low blood pressure. * Intubated and mechanically ventilated. His ventilation sitting was adjusted earlier today. Decrease his tidal volume to 500 and respiratory rate of 16. Infectious Diseases: #Recurrent Fever explaratory laparotomy. Post op day #12 Underwent repeat drainage yesterday, now patient has JIAN placed . OR cultures are sent and positive for Gram postive cocci and gram negative rods. * He is still febrile with Tmax of 101.5 yesterday. * Per ID consult we will switch Abx back to IV meropenem Q8 1gm based on culture and sensitivity. * We will send for C. difficile * We will continue IV tylenol and cooling blankets. * Continue Fluconazol Cardiovascular: #New onset A. fib postoperativey. Patient developed A. fib post operative, most likely patient was on stress because of sepsis. He was started on amiodarone drip, patient then converted back to normal sinus rhythm after which a major on trip was discontinued. Currently he is maintaining normal sinus rhythm #New onset bilateral lower extremity edema. Bilateral lower extremity Doppler was done to exclude DVTs as a possible explanation. Results came back negative for DVTs. #Right Cephalic vein thrombosis Patient was found to have superficial thrombosis in right cephalic vein. He had a peripheral line in that region at the time of surgery. This thrombosis is a superficial and most likely will not lead to any DVTs. * Warm compressors without any anticoagulation for now. Hematology: Patient was blood cell still 14.3, H&H and it dropped from 9.9 and 29.1 yesterday to 9.1 & 27 today. INR is 1.38 today * We'll repeat CBC tomorrow Metabolic: #JUANA (Resolved) Today creatinine is 8.0. At some point during this admission patient's creatinine went up to 1.6. Patient last input output were Intake 3380 and output is 3660 (-280CC) * We will monitor his fluid balance. Alimentary: * NPO with NG decompression * TPN - day 6. * Colostomy bag in place with active drainage * cont' JIAN drain * Bowel sounds present, doing well now * Surgery is on board we will follow their recommendation. Neurological: On fentanyl drip as 100 mL per hour. Patient is arousable to tactile stimulus. Endocrinology No endocrinology issue at the time SKI some erythema around the abdominal wound incision Diet patient is nothing by mouth * We'll continue TPN DVT/Prophylaxis: sc lovenox Code Status: Full Code Problem List: 1. Perforated abdominal viscus 2. Peritonitis Pain Ratin Pain Location: na Tomorrow's Labs & Rationales: CBC, ICU bundle, Mg, Airam Plan DVT/Prophylaxis: sc lovenox Code Status: Full Code
--- NOTE | 2016-12-15 07:39 | RADIOLOGY REPORT ---
EXAMINATION: XR PORTABLE CHEST CLINICAL INFORMATION: Mechanical ventilation. Evaluate tube position. COMPARISON: Chest x-ray dated 12/14/2016. TECHNIQUE: AP semierect portable view of the chest. FINDINGS: Endotracheal tube tip 3 cm above the fernando. Enteric tube courses into the abdomen with tip not included. Left subclavian PICC line is in place with tip in the deep SVC. Cardiac silhouette within normal limits in size. Ectasia and tortuosity of the ascending aorta again seen. Calcification of aortic arch noted. Lungs bilaterally symmetrically expanded with central vascular congestion seen. No overt pulmonary edema. Left hilar calcification and vaguely defined calcified nodule in the left lower lobe again noted. No significant pleural effusion on portable plain film. Some density in the retrocardiac left lung base is seen, likely due to subsegmental atelectasis. IMPRESSION: 1. Endotracheal tube tip approximately 3 cm above the fernando. 2. Enteric tube courses into the abdomen with tip not included. 3. PICC line tip in the distal SVC. 4. No significant pleural effusion appreciated on plain film. Persistent left basilar subsegmental atelectasis is suspected. 5. Central vascular congestion. 6. Evidence of prior granulomatous lung disease.
[2016-12-15 08:00] VITALS: BP 100/78
[2016-12-15 09:31] LABS: PT 14.4 SEC (9.4-12.5); PTT 34 SEC (25-37)
--- NOTE | 2016-12-15 09:48 | PN- CRCU ---
Subjective HPI/Critical Care Issues: Patient seen and examined this morning. He still febrile and the white count has not changed from 14.3. Chemistry remains unchanged. The review of systems is limited given intubated and sedated state. Objective Current Medications: Current Medications Sig/Ar Start time Last Medication Dose Route Stop Time Status Admin Acetaminophen 1,000 MG Q6P PRN 12/04 1945 AC 12/15 N/A 1 UNIT IV 0917 Albuterol Sulfate 3 ML EVERY 4 HRS/AWAKE 12/06 1600 AC 12/15 INH 0857 Ceftriaxone Sodium 1,000 MG DAILY 12/14 1000 MS 12/14 IV 1029 Fat Emulsion 375 ML 1900 12/14 1900 AC 12/14 Intravenous IV 12/15 1859 1830 Fat Emulsion 375 ML 1900 12/13 1900 MS 12/13 Intravenous IV 12/14 1859 1856 Fentanyl Citrate 1,000 MCG Q10H 12/14 1115 AC 12/15 Sodium Chloride 250 ML IV 0430 Fentanyl Citrate 1,000 MCG Q13H 12/12 0815 MS 12/14 Sodium Chloride 250 ML IV 0919 Fluconazole 400 MG DAILY 12/14 1005 AC 12/15 Sodium Chloride 200 ML IV 0916 Furosemide 40 MG ONCE ONE 12/14 1000 MS 12/14 IV 12/14 1001 1057 Heparin Sodium 5,000 UNIT Q8 12/02 2200 AC 12/15 (Porcine) SC 0551 Ipratropium [place] 2.5 ML EVERY 4 HRS/AWAKE 12/06 1600 AC 12/15 INH 0858 Lorazepam 1 MG Q4P PRN 12/13 1715 AC 12/15 IV 0551 Meropenem 1 GM Q8H 12/15 1000 AC IV Metronidazole 500 MG IQ8 12/14 1600 MS 12/15 N/A 1 UNIT IV 0832 Ondansetron HCl 4 MG Q6P PRN 12/02 1800 AC IV Pantoprazole Sodium 40 MG DAILY 12/02 2200 AC 12/15 IV 0916 Patient Medication 1 UNIT ONE NR 12/14 1045 MS Teaching ED 12/14 1645 Patient Medication 1 UNIT ONE NR 12/14 1000 [facility] ED 12/14 1600 Petrolatum 1 CECY DAILY NEEDED PRN 12/11 2215 AC 12/15 OPH 0549 Total Parenteral 1 UNIT 1900 12/14 1900 12/14 Nutrition IV 12/15 1859 1830 Total Parenteral 1 UNIT 1900 12/13 1900 DC 12/13 Nutrition IV 12/14 1859 1856 Vital Signs & I&O Last 24 Hrs of Vitals and I&O: Vital Signs Date Time Temp Pulse Resp B/P Pulse O2 O2 Flow FiO2 Ox Delivery Rate 12/15 0917 101.8 12/15 0842 30 12/15 0525 30 12/15 0346 100.1 12/15 0334 30 12/15 0230 101.5 12/15 0126 30 12/15 0000 100.1 76 24 122/64 97 Ventilator 30% 12/15 0000 98 Ventilator 30% 12/14 2213 30 12/14 2000 97 Ventilator 35% 12/14 1940 30 12/14 1620 30 12/14 1600 99.5 91 29 118/74 98 Ventilator 2.0L 12/14 1600 96 Ventilator 30% 12/14 1321 30 12/14 1200 97 Ventilator 30% 12/14 1048 30 Intake & Output 12/15 1600 12/15 0800 12/15 0000 Intake Total 1105.0 1192.0 Output Total 530 810 Balance 575.0 382.0 Intake, IV 467 371 Intake, Lipid 116.0 239.0 Intake, Oral 0 0 Intake, 522 582 TPN/PPN Output, 30 40 Drainage Output, 0 40 Gastric Drainage Output, Stool 50 0 Output, Urine 450 730 Patient 225 lb Weight Exam Other Physical Findings: gen sedated, mechanical ventilation heent ett cvs s1, s2 lungs transmitted abd soft bs+, dressing intact, no pus ext edematous Results Last 24 Hrs of Lab Results: Laboratory Tests 12/15/16 0910: pH 7.44, pCO2 36, pO2 94, HCO3 24, ABG O2 Sat (Measured) 96.0, P-50 (Temp Corrected) Y, Carboxyhemoglobin 0.3 L, O2 Concentration % 30, Temperature 100.1 H, Respiration Rate 16, O2 Delivery Method VENT, Vent Mode VC-AC, Expiratory Pressure 5, Tidal Volume 500, Phlebotomy Draw Site LEFT RADIAL 12/15/16 0840: PT 14.4 H, INR 1.38 H, APTT 34 12/15/16 0534: Anion Gap 6, Estimated GFR > 60, Glucose 162 H, Calcium 6.7 L, Phosphorus 3.9, Magnesium 1.8, Total Bilirubin 0.7, AST 45, ALT 29, Albumin 1.7 L, CBC w Diff MAN DIFF ORDERED, RBC 3.30 L, MCV 81.7, MCH 27.7, RDW 15.6 H, MPV 8.6, Gran % 85.4 H, Lymphocytes % 9.3 L, Monocytes % 3.9, Eosinophils % 1.3, Basophils % 0.1, Absolute Granulocytes 12.2 H, Segmented Neutrophils 76 H, Band Neutrophils 8 H, Absolute Lymphocytes 1.3, Lymphocytes 10 L, Monocytes 1 L, Absolute Monocytes 0.6, Eosinophils 1, Absolute Eosinophils 0.2, Absolute Basophils 0, Metamyelocytes 4 H, Platelet Estimate ADEQUATE, Normocytic RBCs VERIFIED, Polychromasia 1+, Anisocytosis 1+, PUBS MCHC 33.9, Fld Total RBCs Counted 100 Impression/Plan Impression/Plan Impression/Plan: Impression 89 year old man * 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 for acute abdominal perforation * Respiratory failure with increased bibasilar opacities, maybe fluid overload * History of obstructive lung disease * E.coli and yeast in cultures Plan Respiratory - Monitor chest x-rays and ABGs - TRC/Nebs - reduce tv 500, rr 16, sedation as tolerated ID - ceftriaxone/flagyl, fluconazole - f/u ID, surgery recommendations CVS - monitor hemodynamics - Superficial cephalic vein thrombosis will need warm compresses Heme - monitor cbc, coags Metabolic - ins/outs, malnourished - net even to negative fluid balance Alimentary - TPN - surgical follow up Neuro - sedation as necessary for comfort DVT prophylaxis at all times TTS 40 min Will continue to have ongoing discussion regarding goals of care. Consideration for trach next week if no deterioration. Code Status: Full Code
--- NOTE | 2016-12-15 10:08 | PN- Infect Dx ---
Subjective Subjective: MAXIMUM TEMPERATURE 101.8. Objective Last 24 Hrs of Vital Signs/I&O Vital Signs Date Time Temp Pulse Resp B/P Pulse O2 O2 Flow FiO2 Ox Delivery Rate 12/15 0917 101.8 12/15 0842 30 12/15 0800 101.0 85 22 100/78 98 Ventilator 30% 12/15 0525 30 12/15 0346 100.1 12/15 0334 30 12/15 0230 101.5 12/15 0126 30 12/15 0000 100.1 76 24 122/64 97 Ventilator 30% 12/15 0000 98 Ventilator 30% 12/14 2213 30 12/14 2000 97 Ventilator 35% 12/14 1940 30 12/14 1620 30 12/14 1600 99.5 91 29 118/74 98 Ventilator 2.0L 12/14 1600 96 Ventilator 30% 12/14 1321 30 12/14 1200 97 Ventilator 30% 12/14 1048 30 Intake & Output 12/15 1600 12/15 0800 12/15 0000 Intake Total 1105.0 1192.0 Output Total 530 810 Balance 575.0 382.0 Intake, IV 467 371 Intake, Lipid 116.0 239.0 Intake, Oral 0 0 Intake, 522 582 TPN/PPN Output, 30 40 Drainage Output, 0 40 Gastric Drainage Output, Stool 50 0 Output, Urine 450 730 Patient 235 lb Weight Physical Exam Other Physical Findings: He is sedated on the ventilator, minimally responsive to pain Lungs bilateral rhonchi Heart regular rhythm with no murmur Abdomen is distended, incision with mild erythema, with JIAN drain in place, with seropurulent drainage; colostomy with small amount of liquid stool Extremities 1+ edema all extremities; PICC in the left upper extremity with no inflammation at the site Edward catheter remains in place; scrotal edema persists Results Last 24 Hours of Lab Results: Laboratory Tests 12/15 12/15 0910 0840 Blood Gas pH (7.35 - 7.45 PH) 7.44 pCO2 (35 - 45 TORR) 36 pO2 (80 - 100 TORR) 94 HCO3 (21 - 28 MEQ/L) 24 ABG O2 Sat (Measured) (>96.0 %) 96.0 P-50 (Temp Corrected) Y Carboxyhemoglobin (1.5 - 5.0 %) 0.3 L O2 Concentration % 30 Temperature (97.0 - 100.0 FARH) 100.1 H Respiration Rate (BPM) 16 O2 Delivery Method VENT Vent Mode VC-AC Expiratory Pressure (CMH2O/P) 5 Tidal Volume (CC) 500 Coagulation PT (9.4 - 12.5 SEC) 14.4 H INR (0.90 - 1.17) 1.38 H APTT (25 - 37 SEC) 34 Miscellaneous Phlebotomy Draw Site LEFT RADIAL 12/15 0534 Chemistry Sodium (137 - 145 mmol/L) 140 Potassium (3.5 - 5.1 mmol/L) 3.9 Chloride (98 - 107 mmol/L) 107 Carbon Dioxide (22 - 30 mmol/L) 27 Anion Gap (5 - 16) 6 BUN (9 - 20 mg/dL) 31 H Creatinine (0.7 - 1.2 mg/dL) 0.8 Estimated GFR (>60 ml/min) > 60 Glucose (65 - 99 mg/dL) 162 H Calcium (8.4 - 10.2 mg/dL) 6.7 L Phosphorus (2.5 - 4.5 mg/dL) 3.9 Magnesium (1.6 - 2.3 mg/dL) 1.8 Total Bilirubin (0.2 - 1.3 mg/dL) 0.7 AST (17 - 59 U/L) 45 ALT (21 - 72 U/L) 29 Albumin (3.5 - 5.0 g/dL) 1.7 L Hematology CBC w Diff MAN DIFF ORDERED WBC (4.8 - 10.8 /CUMM) 14.3 H RBC (4.70 - 6.10 /CUMM) 3.30 L Hgb (14.0 - 18.0 G/DL) 9.1 L Hct (42 - 52 %) 27.0 L MCV (80.0 - 94.0 FL) 81.7 MCH (27.0 - 31.0 PG) 27.7 RDW (11.5 - 14.5 %) 15.6 H Plt Count (130 - 400 /CUMM) 365 MPV (7.4 - 10.4 FL) 8.6 Gran % (42.2 - 75.2 %) 85.4 H Lymphocytes % (20.5 - 51.1 %) 9.3 L Monocytes % (1.7 - 9.3 %) 3.9 Eosinophils % (0 - 5 %) 1.3 Basophils % (0.0 - 2.0 %) 0.1 Absolute Granulocytes (1.4 - 6.5 /CUMM) 12.2 H Segmented Neutrophils (42.2 - 75.2 %) 76 H Band Neutrophils (0.0 - 5.0 %) 8 H Absolute Lymphocytes (1.2 - 3.4 /CUMM) 1.3 Lymphocytes (20.5 - 51.1 %) 10 L Monocytes (1.7 - 9.3 %) 1 L Absolute Monocytes (0.10 - 0.60 /CUMM) 0.6 Eosinophils (0 - 5.0 %) 1 Absolute Eosinophils (0.0 - 0.7 /CUMM) 0.2 Absolute Basophils (0.0 - 0.2 /CUMM) 0 Metamyelocytes (0.0 - 1.0 %) 4 H Platelet Estimate (ADEQUATE) ADEQUATE Normocytic RBCs VERIFIED Polychromasia 1+ Anisocytosis 1+ PUBS MCHC (33.0 - 37.0 G/DL) 33.9 Other Body Source Fld Total RBCs Counted (%) 100 Last 24 Hours of [place] Results: Blood cultures 2 December 11 remain negative OR culture December 12 positive for Escherichia coli, Enterococcus sensitive to Ampicillin and yeast, with ID pending Recent Imaging Studies: Chest x-ray December 15, personally reviewed, reveals minimal left basilar density Dopplers of both lower extremities December 14 negative Assessment/Plan Impression: Recurrent fevers with persistent leukocytosis now 3 days status post repeat laparotomy for drainage of intraperitoneal abscesses, now 13 days status post initial Kirkland's procedure for peritonitis secondary to a perforated viscus. He is currently on Ceftriaxone, Flagyl and Fluconazole, but the OR culture is now reported positive for Enterococcus in addition to the Escherichia coli and yeast; therefore his antibiotics will again need to be adjusted. His persistent fevers may suggest residual infection within the abdomen, and if fevers persist despite adjustment of antibiotics, repeat imaging may be advisable. With liquid stool in the colostomy C. difficile could be considered and would rule out. Suggestion: 1. Stool for C. difficile 2. Follow-up ID of the yeast 3. Discontinue Ceftriaxone and Flagyl 4. Restart Meropenem 1 g IV every 8 hours 5. Continue Fluconazole pending above
--- NOTE | 2016-12-15 11:17 | NUR ---
@0800-PT SEDATED ON FENT GTT AT 100MCG. SAS 3. OPENS EYES TO VERBAL STIM AND TACTILE STIMULI. NOT FOLLOWING COMMANDS. BILAT WRIST RESTRAINTS CONT FOR SAFETY OF ETT. TEMP 101. COOLING BLANKET IN PLACE. ATIVAN PRN. CONT ON VENT-NO CHANGE TO SETTINGS. O2SAT 96%. RHONCHI AUSCULTATED. WHITE THICK SECRETIONS SUCTIONED. ABGS DONE AT THIS TIME. NSR HR 80S. BP STABLE. NGT TP R [id number] OUPTUT NOTED. COLOSTOMY WITH SUH DRAINAGE NOTED. ABD DISTENDED/FIRM, HYPOACTIVE BS. DSG TO MIDLINE COURTNEY INTACT WITH AREAS OF PACKING-WILL REINFORCE IF NEEDED. JIAN DRAIN TO LOWER ABD. EDEMA NOTED GENERALIZED WITH +2 BUE WEEPING. +3 BLE/SCROTAL AND PENILE EDEMA. TPN/LIPIDS CONT TO INFUSE. PT/INR DRAWN AND SENT TO LAB DUE TO H/H THIS AM/
--- NOTE | 2016-12-15 11:22 | NUR ---
@0900-TEMP 102. IV TYLENOL ADMINISTERED PRN DOSE. COOLING BLANKET IN PLACE. BP STABLE. ICE PACK PLACED BEHIND NECK AND COOL WASHCLOTH TO FOREHEAD. IV FLAGYL INFUSED. @1000-ABX CHANGED TO MEROPENUM, ADMINISTERED ORD. RECIEVED IV DIFLUICAN. BP NOTED TO BECOME HYPOTENSIVE AFTER IV TYLENOL. -REPORTED TO HOUSESTAFF. CONT TO MONITOR.
--- NOTE | 2016-12-15 13:16 | NUR ---
@1300-TEMP 101. PT MEDCIATED WITH 1X IV TORADOL PER MD ORDER. IV KCL REPLACEMTN 20MEQ INFUSING FOR K+3.9. PT TO RECIEVE 1 GM MAG BOLUS FOR MAG 1.8 AFTER KCL COMPLETE. CONT TO MONITOR.
[2016-12-15 16:00] VITALS: BP 110/60
--- NOTE | 2016-12-15 16:48 | NUR ---
@1500-PT BP NOTED TO BECOME HYPOTENSIVE AFTER ADMINISTRATION OF TYLENOL AND TORADOL TODAY. FENT GTT DECREASED DOWN TO 87.5MCG FROM 100MCG PER HOUSESTAFF DUE TO HYPOTENSIVE STATE. PT PLACED SUPINE WITH LEGS ELEVATED. CONT TO MONITOR CLSOELY. PLAN TO NOT TREAT FEVER WITH ANY FURTHER ANTIPYRETICS FOR THE NEXT SHIFT AND USE ONLY COOLING BLANKET. FAMILY AT BEDSIDE AND UPDATED.
--- NOTE | 2016-12-15 20:30 | NUR ---
RECTAL PROBE READING 101.8, CHECKED WITH RECTAL THERMOMETER 100.2. PT WIPED DOWN WITH COOL WASH CLOTH, CREAM APPLIED, COOLING BLANKETS REMAIN ON. PER MD ZAMORA JUST CONTINUING WITH COOLING BLANKET AT THIS TIME NO ANTIPYRETICS DUE TO PT BECOMING HYPOTENSIVE AFTER RECEIVING. PT ALSO NOTED TO BE TACHYPNEIC AND MORE AGITATED, INCREASED FENTANYL DRIP TO 100MCG/HR=25ML/HR. WILL CONTINUE TO MONITOR. NOTIFIED MD ZAMORA OF ABOVE.
--- NOTE | 2016-12-15 23:01 | NUR ---
PT TEMP 101.6, PT HAS BEEN TACHYPNEIC WITH RATES IN HIGH 20'S TO 30'S, DESPITE INCREASING FENTANYL DRIP AND GIVING IV ATIVAN. PER SURGICAL PA DIONNE HERNANDEZ OK TO USE NGT AT THIS TIME. NOTIFIED MD MELISSA ZAMORA, WILL PLACE ORDER FOR TYLENOL 650MG VIA NGT. WILL CONTINUE TO MONITOR.
--- NOTE | 2016-12-15 23:13 | NUR ---
DISCUSSED AGAIN WITH SURGICAL AUGUST HERNANDEZ ABOUT USING NGT. WILL NOT USE NGT WILL TRY RECTAL TYLENOL 650MG X 1. NOTIFIED MD ROSEMARIE ZAMORA OF ABOVE.
[2016-12-16] VITALS: BP 100/62
--- NOTE | 2016-12-16 01:58 | NUR ---
PT LOOKS MUCH MORE COMFORTABLE, RR 20-22, TEMP 101.2-101.3 AFTER RECTAL TYLENOL, PT SBP REMAINS 100'S TO 111, WILL CONTINUE TO MONITOR.
[2016-12-16 05:22] LABS: ABSOLUTE BASOPHIL COUNT 0 /CUMM (0.0-0.2); ABSOLUTE EOSINOPHIL COUNT 0.1 /CUMM (0.0-0.7); ABSOLUTE GRANULOCYTE CT 11.7 /CUMM (1.4-6.5); ABSOLUTE LYMPH COUNT 1.7 /CUMM (1.2-3.4); BASOPHIL % 0.1 % (0.0-2.0); EOSINOPHIL % 0.9 % (0-5); GRANULOCYTE % 80.8 % (42.2-75.2); HEMATOCRIT 26.3 % (42-52); MEAN CORPUSCULAR HGB CONC 34.1 G/DL (33.0-37.0); MEAN CORPUSCULAR VOLUME 82.2 FL (80.0-94.0); MEAN PLATELET VOLUME 8.9 FL (7.4-10.4); PLATELET COUNT 433 /CUMM (130-400); RBC DISTRIBUTION WIDTH 15.6 % (11.5-14.5); RED BLOOD CELL CT 3.19 /CUMM (4.70-6.10); WHITE BLOOD CELL COUNT 14.5 /CUMM (4.8-10.8)
[2016-12-16 05:31] LABS: PT 15.6 SEC (9.4-12.5); PTT 36 SEC (25-37)
--- NOTE | 2016-12-16 07:03 | PN- General Surgery ---
See Addendum Subjective Subjective: The patient was seen this morning postoperatively. He remains intubated and sedated. Per nursing there no significant issues overnight his MAXIMUM TEMPERATURE was 101.8. Objective Vital Signs and I&Os Vital Signs Date Time Temp Pulse Resp B/P Pulse O2 O2 Flow FiO2 Ox Delivery Rate 12/16 0612 30 12/16 0400 98 Ventilator 30% 12/16 0355 30 12/16 0234 30 12/16 0041 101.8 12/16 0000 98 Ventilator 30% 12/16 0000 102.0 88 22 100/62 97 Ventilator 30% 12/15 2329 101.6 12/15 2221 30 12/15 2000 97 Ventilator 30% 12/15 1900 30 12/15 1640 30 12/15 1600 99.8 74 20 110/60 97 Ventilator 30% 12/15 1600 99 Ventilator 30% 12/15 1352 30 12/15 1205 30 12/15 1200 96 Ventilator 30% 12/15 1011 101.0 12/15 0917 101.8 12/15 0842 30 12/15 0800 101.0 85 22 100/78 98 Ventilator 30% 12/15 0800 96 Ventilator 30% Intake & Output 12/16 0800 12/16 0000 12/15 1600 12/15 0800 12/15 0000 12/14 1600 Intake Total 979.0 932.3 1635.0 1105.0 1192.0 1193.0 Output Total 695 2555 530 960 309 7413 Balance 284.0 -1622.7 1105.0 575.0 382.0 -1127.0 Intake, IV 277 268 895 467 371 474 Intake, Lipid 125.0 119.7 134.0 116.0 239.0 130.0 Intake, Oral 0 0 0 0 0 0 Intake, 577 544.6 606 522 582 589 TPN/PPN Number 0 Bowel Movements Output, 25 30 50 30 40 40 Drainage Output, 50 75 25 0 40 60 Gastric Drainage Output, Stool 20 50 35 50 0 20 Output, Urine 600 2400 420 379 806 0543 Patient 235 lb 240 lb Weight Physical Exam: en.: Intubated and sedated Skin: Warm and dry Abdomen: Softly distended, bowel sounds sluggish. Surgical incision with clips in place and some mild surrounding erythema. There is a JIAN drain coming out inferior aspect of the wound which is intact and holding suction with mucopurulent drainage in and around the bulb. There remains significant scrotal edema. 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 There is some pitting edema as well. Assessment/Plan Assessment/Plan Assessment: 89-year-old male status post exploratory laparotomy and Kirkland's procedure for perforated sigmoid colon with subsequent return to the operating room for a washout. Postoperatively the patient's multiple issues including respiratory failure for which he is still ventilated. Plan: Continue nothing by mouth and NG tube decompression Follow-up morning laboratory studies and chest x-ray Reorder TPN Daily and when necessary dressing changes Keep JIAN to self suction Total respiratory care Continue IV antibiotics and follow-up OR cultures Continue care per consultation services recommendations Core Measures/Miscellaneous Edward Catheter Date In: 12/02/16 Venous Thromboembolism VTE Risk Factors: Acute medical illness, Age > 40, Surgery VTE Contraindications: No Contraindications VTE Prophylaxis Ordered Inpt [facility] Pharm VTE Diagnosis: No Beta Abelardo Is Beta Abelardo a Home Med? No Antibiotics Is Patient on Antibiotics? Yes If Yes: infection
--- NOTE | 2016-12-16 07:14 | PN- Resident CRCU ---
Subjective HPI/CRCU Issues: Patient is arousable to verbal and tactile stimulation. He is unable to provide any review of systems. 24 Hour Events: Pt seen and examined at bed side HR was stable on 94-79 BP blood pressure was in acceptable range most on the day however it went down to 71/46 at 10 AM and 81/48 at 11 AM. Today morning he went down to 87/60 at 6 AM TMax 102 Intake 3561 and output is 3780 (-219CC) Arousable to tactile and verbal stimuli. Objective Vital Signs & I&O Last 8 Hrs of Vitals and I&O: Vital Signs Date Time Temp Pulse Resp B/P Pulse O2 O2 Flow FiO2 Ox Delivery Rate 12/16 0901 30 12/16 0612 30 12/16 0400 98 Ventilator 30% 12/16 0355 30 12/16 0234 30 12/16 0041 101.8 12/16 0000 98 Ventilator 30% 12/16 0000 102.0 88 22 100/62 97 Ventilator 30% 12/15 2329 101.6 12/15 2221 30 12/15 2000 97 Ventilator 30% 12/15 1900 30 12/15 1640 30 12/15 1600 99.8 74 20 110/60 97 Ventilator 30% 12/15 1600 99 Ventilator 30% 12/15 1352 30 12/15 1205 30 12/15 1200 96 Ventilator 30% Intake & Output 12/16 1600 12/16 0800 12/16 0000 Intake Total 979.0 932.3 Output Total 695 2555 Balance 284.0 -1622.7 Intake, IV 277 268 Intake, Lipid 125.0 119.7 Intake, Oral 0 0 Intake, 577 544.6 TPN/PPN Number 0 Bowel Movements Output, 25 30 Drainage Output, 50 75 Gastric Drainage Output, Stool 20 50 Output, Urine 600 2400 Exam General Appearance: sedated, intubated Head: atraumatic, normal appearance Respiratory: crackles (B/L) Cardiovascular: regular rate/rhythm Gastrointestinal: soft, mildly distended. Surgical inscisions with clips on place. inscision is suronded with some erythema but not worm(better than yesterday) Scott drain some smucopurulent fluid Extremities: +1 LE B/L edema. better than yesterday Weaning Parameters NIF: 42 Minute Volume: 13 Resp rate: 24 Vt: 520 Heart Rate: 107 Weaning Schedule Start Time: 0940 Minute Volume: 13 Resp Rate: 24 Vt: 520 Heart Rate: 107 Current Medications: Current Medications Sig/Ar Start time Last Medication Dose Route Stop Time Status Admin Acetaminophen 650 MG ONCE ONE 12/15 2330 DC 12/15 NJ 12/15 2331 2329 Acetaminophen 650 MG ONCE ONE 12/15 2300 DC PO 12/15 2301 Acetaminophen 1,000 MG Q6P PRN 12/04 1945 12/15 N/A 1 UNIT IV 0917 Albuterol Sulfate 3 ML EVERY 4 HRS/AWAKE 12/06 1600 AC 12/16 INH 1202 Fat Emulsion 375 ML 1900 12/16 1900 AC Intravenous IV 12/17 1859 Fat Emulsion 375 ML 1900 12/15 1900 AC 12/15 Intravenous IV 12/16 1859 1837 Fat Emulsion 375 ML 1900 12/14 190 DC 12/14 Intravenous IV 12/15 1859 1830 Fentanyl Citrate 1,000 MCG Q10H 12/14 1115 12/16 Sodium Chloride 250 ML IV 0909 Fluconazole 400 MG DAILY 12/14 1005 AC 12/16 Sodium Chloride 200 ML IV 0906 Furosemide 40 MG ONCE ONE 12/15 1730 DC 12/15 IV 12/15 1731 1720 Heparin Sodium 5,000 UNIT Q8 12/02 2200 12/16 (Porcine) SC 0646 Ipratropium [place] 2.5 ML EVERY 4 HRS/AWAKE 12/06 1600 AC 12/16 INH 1202 Lorazepam 1 MG Q4P PRN 12/13 1715 12/16 IV 0824 Magnesium Sulfate 1 GM ONCE ONE 12/15 1245 DC 12/15 Dextrose/Water 100 ML IV 12/15 1644 1400 Meropenem 1 GM Q8H 12/15 1000 12/16 IV 1044 Ondansetron HCl 4 MG Q6P PRN 12/02 1800 AC IV Pantoprazole Sodium 40 MG DAILY 12/02 2200 12/16 IV 0906 Petrolatum 1 CECY DAILY NEEDED PRN 12/11 2215 12/15 OPH 0549 Total Parenteral 1 UNIT 1900 12/16 1900 AC Nutrition IV 12/17 1859 Total Parenteral 1 UNIT 1900 12/15 1900 AC 12/15 Nutrition IV 12/16 1859 1838 Total Parenteral 1 UNIT 1900 12/14 1900 DC 12/14 Nutrition IV 01/18 1859 1830 Impression/Plan Impression/Problem List Impression: 89/M with PMH of asthma, HTN, bilateral inguinal hernia s/p repair 30 years ago presented to [facility] on 12/12/15 c/o acute abdominal pain. He was found to have acute perforation of sigmoid colon complicated by peritonitis. He underwent emergent surgery with Henny's procedure. He was subsequently sent to ICU for hemodynamic stabilization, further care as patient is at high risk for infection/respiratory failure post extubation. Today he is still intubated, ventilated, slightly arousable, and spiking fevers. Plan Respiratory: #Respiratory failure. Patient has history of COPD. * On fentanyl drip, increased to 125 mL per hour. * Intubated and mechanically ventilated. His ventilation sitting was adjusted recently by Decrease his tidal volume to 500 and respiratory rate of 16. Infectious Diseases: #Recurrent Fever explaratory laparotomy. Post op day #12 Underwent repeat drainage yesterday, now patient has SCOTT placed . OR cultures are sent and positive for Gram postive cocci and gram negative rods. * He is still febrile with Tmax of 102 yesterday. * we'll cont' IV meropenem Q8 1gm based on culture and sensitivity. * We will f/u C. difficile result * We will continue IV tylenol and cooling blankets. * Continue Fluconazol * * ID recs repeat Repeat blood cultures 2 if re-spikes and CT of the abdomen and pelvis in the a.m. if fevers and/or leukocytosis persist Cardiovascular: #New onset A. fib postoperativey. Patient developed A. fib post operative, most likely patient was on stress because of sepsis. He was started on amiodarone drip, patient then converted back to normal sinus rhythm after which a major on trip was discontinued. Currently he is maintaining normal sinus rhythm #New onset bilateral lower extremity edema. Bilateral lower extremity Doppler was done to exclude DVTs as a possible explanation. Results came back negative for DVTs. * we'll keep negative balance #Right Cephalic vein thrombosis Patient was found to have superficial thrombosis in right cephalic vein. He had a peripheral line in that region at the time of surgery. This thrombosis is a superficial and most likely will not lead to any DVTs. * Warm compressors without any anticoagulation for now. Hematology: Patient was blood cell still 14.3, H&H and it dropped from 9.9 and 29.1 yesterday to 9.1 & 27 today. INR is 1.49 today * We'll repeat CBC tomorrow Metabolic: #JUANA (Resolved) Today creatinine is 0.9 At some point during this admission patient's creatinine went up to 1.6. Patient last input output were Intake 3561 and output is 3780 (-219CC) * We will monitor his fluid balance. Alimentary: * NPO with NG decompression * TPN - day 7. * Colostomy bag in place with active drainage * cont' SCOTT drain * Bowel sounds present, doing well now * Surgery is on board we will follow their recommendation. Neurological: Patient is sedated and intubated Patient is arousable to tactile stimulus. Endocrinology No endocrinology issue at the time SKI some erythema around the abdominal wound incision but better than yesterday Diet patient is nothing by mouth * We'll continue TPN DVT/Prophylaxis: sc lovenox Code Status: Full Code Problem List: 1. Peritonitis Pain Ratin Tomorrow's Labs & Rationales: cbc, icu bun, inr, phos, mg Plan DVT/Prophylaxis: sc lovenox Code Status: Full Code
[2016-12-16 08:00] VITALS: BP 100/66
--- NOTE | 2016-12-16 08:16 | RADIOLOGY REPORT ---
EXAMINATION: XR PORTABLE CHEST CLINICAL INFORMATION: On a ventilator COMPARISON: Prior chest 12/15/2016 6:46 AM TECHNIQUE: Portable view of the chest was obtained. FINDINGS: Endotracheal tube in place with the tip unchanged proximally 4 cm above the frenando. A PICC line is noted with the tip in the region of the SVC which appears to be slightly turned back at the distal tip of uncertain clinical significance of. Dense nodular density at the left base compatible with calcified granuloma as previously demonstrated Lungs otherwise clear Slight prominence of central pulmonary vasculature unchanged IMPRESSION: PICC line again noted with the tip in the region of the SVC but with the tip slightly turned back on itself compared to the prior examination of uncertain clinical significance of. Endotracheal tube unchanged. Mild central prominence of the pulmonary vasculature unchanged.
--- NOTE | 2016-12-16 10:33 | PN- Infect Dx ---
Subjective Subjective: MAXIMUM TEMPERATURE 102. Objective Last 24 Hrs of Vital Signs/I&O Vital Signs Date Time Temp Pulse Resp B/P Pulse O2 O2 Flow FiO2 Ox Delivery Rate 12/16 0901 30 12/16 0612 30 12/16 0400 98 Ventilator 30% 12/16 0355 30 12/16 0234 30 12/16 0041 101.8 12/16 0000 98 Ventilator 30% 12/16 0000 102.0 88 22 100/62 97 Ventilator 30% 12/15 2329 101.6 12/15 2221 30 12/15 2000 97 Ventilator 30% 12/15 1900 30 12/15 1640 30 12/15 1600 99.8 74 20 110/60 97 Ventilator 30% 12/15 1600 99 Ventilator 30% 12/15 1352 30 12/15 1205 30 12/15 1200 96 Ventilator 30% Intake & Output 12/16 1600 12/16 0800 12/16 0000 Intake Total 979.0 932.3 Output Total 695 2555 Balance 284.0 -1622.7 Intake, IV 277 268 Intake, Lipid 125.0 119.7 Intake, Oral 0 0 Intake, 577 544.6 TPN/PPN Number 0 Bowel Movements Output, 25 30 Drainage Output, 50 75 Gastric Drainage Output, Stool 20 50 Output, Urine 600 2400 Physical Exam Other Physical Findings: He remains responsive to pain, sedated on the ventilator Lungs scattered rhonchi bilaterally Heart regular rhythm with no murmur Abdomen is distended, incision with mild erythema, with serous drainage expressed from the middle aspect, with purulent drainage from the JIAN drain; minimal liquid output from the colostomy Extremities 1+ edema all extremities; PICC in the left upper extremity with no inflammation at the site Edward catheter remains in place Results Last 24 Hours of Lab Results: Laboratory Tests 12/164 Chemistry Sodium (137 - 145 mmol/L) 141 Potassium (3.5 - 5.1 mmol/L) 4.2 Chloride (98 - 107 mmol/L) 104 Carbon Dioxide (22 - 30 mmol/L) 28 Anion Gap (5 - 16) 8 BUN (9 - 20 mg/dL) 28 H Creatinine (0.7 - 1.2 mg/dL) 0.9 Estimated GFR (>60 ml/min) > 60 Glucose (65 - 99 mg/dL) 154 H Calcium (8.4 - 10.2 mg/dL) 6.9 L Phosphorus (2.5 - 4.5 mg/dL) 4.2 Magnesium (1.6 - 2.3 mg/dL) 2.0 Total Bilirubin (0.2 - 1.3 mg/dL) 0.6 AST (17 - 59 U/L) 40 ALT (21 - 72 U/L) 30 Albumin (3.5 - 5.0 g/dL) 1.8 L Coagulation PT (9.4 - 12.5 SEC) 15.6 H INR (0.90 - 1.17) 1.49 H APTT (25 - 37 SEC) 36 Hematology CBC w Diff NO MAN DIFF REQ WBC (4.8 - 10.8 /CUMM) 14.5 H RBC (4.70 - 6.10 /CUMM) 3.19 L Hgb (14.0 - 18.0 G/DL) 8.9 L Hct (42 - 52 %) 26.3 L MCV (80.0 - 94.0 FL) 82.2 MCH (27.0 - 31.0 PG) 28.0 RDW (11.5 - 14.5 %) 15.6 H Plt Count (130 - 400 /CUMM) 433 H MPV (7.4 - 10.4 FL) 8.9 Gran % (42.2 - 75.2 %) 80.8 H Lymphocytes % (20.5 - 51.1 %) 11.4 L Monocytes % (1.7 - 9.3 %) 6.8 Eosinophils % (0 - 5 %) 0.9 Basophils % (0.0 - 2.0 %) 0.1 Absolute Granulocytes (1.4 - 6.5 /CUMM) 11.7 H Absolute Lymphocytes (1.2 - 3.4 /CUMM) 1.7 Absolute Monocytes (0.10 - 0.60 /CUMM) 1.0 H Absolute Eosinophils (0.0 - 0.7 /CUMM) 0.1 Absolute Basophils (0.0 - 0.2 /CUMM) 0 PUBS MCHC (33.0 - 37.0 G/DL) 34.1 Last 24 Hours of Adrian Results: OR culture positive for Escherichia coli, Enterococcus and Elo albicans Stool C. difficile December 15 pending Blood cultures December 11 negative Recent Imaging Studies: Chest x-ray December 16 no acute process Assessment/Plan Impression: Persistent fevers and leukocytosis now 4 days status post repeat laparotomy for drainage of intraperitoneal abscesses, now 2 weeks status post initial Kirkland's procedure for peritonitis secondary to a perforated viscus. He is now on Meropenem and Fluconazole, which should adequately cover the organisms isolated from the recent OR culture. His persistent fevers may suggest residual infection within the abdomen, and if they persist repeat imaging may be advisable. With a small amount of liquid stool in the colostomy C. difficile should be ruled out. Suggestion: 1. Follow-up stool for C. difficile 2. Repeat blood cultures 2 if re-spikes 3. Would repeat CT of the abdomen and pelvis in the a.m. if fevers and/or leukocytosis persist 4. Continue Meropenem and Fluconazole
--- NOTE | 2016-12-16 11:22 | PN- CRCU ---
Subjective HPI/Critical Care Issues: Patient seen and examined this morning. He is intubated in the review of systems is unobtainable. He is continuing to be febrile currently at 101.8. His white count today is 14.5 with some drainage from the JIAN drain. Objective Current Medications: Current Medications Sig/Ar Start time Last Medication Dose Route Stop Time Status Admin Acetaminophen 650 MG ONCE ONE 12/15 2330 DC 12/15 UT 12/15 2331 2329 Acetaminophen 650 MG ONCE ONE 12/15 2300 DC PO 12/15 2301 Acetaminophen 1,000 MG Q6P PRN 12/04 1945 AC 12/15 N/A 1 UNIT IV 0917 Albuterol Sulfate 3 ML EVERY 4 HRS/AWAKE 12/06 1600 AC 12/16 INH 0851 Fat Emulsion 375 ML 1900 12/16 1900 AC Intravenous IV 12/17 1859 Fat Emulsion 375 ML 1900 12/15 1900 AC 12/15 Intravenous IV 12/16 1859 1837 Fat Emulsion 375 ML 1900 12/14 1900 DC 12/14 Intravenous IV 12/15 1859 1830 Fentanyl Citrate 1,000 MCG Q10H 12/14 1115 AC 12/16 Sodium Chloride 250 ML IV 0909 Fluconazole 400 MG DAILY 12/14 1005 AC 12/16 Sodium Chloride 200 ML IV 0906 Furosemide 40 MG ONCE ONE 12/15 1730 DC 12/15 IV 12/15 1731 1720 Heparin Sodium 5,000 UNIT Q8 12/02 2200 AC 12/16 (Porcine) SC 0646 Ipratropium [place] 2.5 ML EVERY 4 HRS/AWAKE 12/06 1600 12/16 INH 0851 Ketorolac 15 MG ONCE ONE 12/15 1315 DC 12/15 Tromethamine IV 12/15 1316 1306 Ketorolac 30 MG ONCE ONE 12/15 1300 CAN Tromethamine IV 12/15 1301 Lorazepam 1 MG Q4P PRN 12/13 1715 AC 12/16 IV 0824 Magnesium Sulfate 1 GM ONCE ONE 12/15 1245 DC 12/15 Dextrose/Water 100 ML IV 12/15 1644 1400 Meropenem 1 GM Q8H 12/15 1000 AC 12/16 IV 1044 Ondansetron HCl 4 MG Q6P PRN 12/02 1800 AC IV Pantoprazole Sodium 40 MG DAILY 12/02 2200 AC 12/16 IV 0906 Petrolatum 1 CECY DAILY NEEDED PRN 12/11 2215 AC 12/15 OPH 0549 Potassium Chloride 20 MEQ ONCE ONE 12/15 1245 DC 12/15 IV 12/15 1246 1306 Total Parenteral 1 UNIT 12/16 AC Nutrition IV 12/17 185 Total Parenteral 1 UNIT 12/15 190 AC 12/15 Nutrition IV 12/16 1859 1838 Total Parenteral 1 UNIT 12/14 190 DC 12/14 Nutrition IV 12/15 185 1830 Vital Signs & I&O Last 24 Hrs of Vitals and I&O: Vital Signs Date Time Temp Pulse Resp B/P Pulse O2 O2 Flow FiO2 Ox Delivery Rate 12/16 0901 30 12/16 0612 30 12/16 0400 98 Ventilator 30% 12/16 0355 30 12/16 0234 30 12/16 0041 101.8 12/16 0000 98 Ventilator 30% 12/16 0000 102.0 88 22 100/62 97 Ventilator 30% 12/15 2329 101.6 12/15 2221 30 12/15 2000 97 Ventilator 30% 12/15 1900 30 12/15 1640 30 12/15 1600 99.8 74 20 110/60 97 Ventilator 30% 12/15 1600 99 Ventilator 30% 12/15 1352 30 12/15 1205 30 12/15 1200 96 Ventilator 30% Intake & Output 12/16 1600 12/16 0800 12/16 0000 Intake Total 979.0 932.3 Output Total 695 2555 Balance 284.0 -1622.7 Intake, IV 277 268 Intake, Lipid 125.0 119.7 Intake, Oral 0 0 Intake, 577 544.6 TPN/PPN Number 0 Bowel Movements Output, 25 30 Drainage Output, 50 75 Gastric Drainage Output, Stool 20 50 Output, Urine 600 2400 Exam Other Physical Findings: gen sedated, mechanical ventilation heent ett cvs s1, s2 lungs transmitted abd soft bs+, dressing intact, no pus ext edematous Results Last 24 Hrs of Lab Results: Laboratory Tests 12/16/16 0414: Anion Gap 8, Estimated GFR > 60, Glucose 154 H, Calcium 6.9 L, Phosphorus 4.2, Magnesium 2.0, Total Bilirubin 0.6, AST 40, ALT 30, Albumin 1.8 L, PT 15.6 H, INR 1.49 H, APTT 36, CBC w Diff NO MAN DIFF REQ, RBC 3.19 L, MCV 82.2, MCH 28.0, RDW 15.6 H, MPV 8.9, Gran % 80.8 H, Lymphocytes % 11.4 L, Monocytes % 6.8, Eosinophils % 0.9, Basophils % 0.1, Absolute Granulocytes 11.7 H, Absolute Lymphocytes 1.7, Absolute Monocytes 1.0 H, Absolute Eosinophils 0.1, Absolute Basophils 0, PUBS MCHC 34.1 Impression/Plan Impression/Plan Impression/Plan: Impression 89 year old man * 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 for acute abdominal perforation * Respiratory failure with increased bibasilar opacities, maybe fluid overload * History of obstructive lung disease * E.coli and yeast in cultures Plan Respiratory - Monitor chest x-rays and ABGs - TRC/Nebs -Continue mechanical ventilation ID - Meropenem, fluconazole - f/u ID, surgery recommendations CVS - monitor hemodynamics - Superficial cephalic vein thrombosis, no DVT Heme - monitor cbc, coags Metabolic - ins/outs, malnourished - net even to negative fluid balance Alimentary - TPN - surgical follow up Neuro - sedation as necessary for comfort DVT prophylaxis at all times TTS 40 min Code Status: Full Code
[2016-12-16 12:00] VITALS: BP 110/62
[2016-12-16 16:00] VITALS: BP 114/72
--- NOTE | 2016-12-16 21:08 | NUR ---
PT OPENS EYES TO VERBAL STIMULI, NOT FOLLOWING COMMANDS, AGITATED AT TIMES. ON FENTANYL GTT AT 112.5MG/HR. SEE FLOW SHEET FOR SAS SCORES. SOFT BILATERAL WRIST RESTRAINTS ON. ORALLY INTUBATED AND VENTED. INS/EXP WHEEZES THOUGHOUT BILATERALLY. SUCTIONING FOR SM AMT OF THICK, WHITE SECREATIONS. NO SOB OR RESP DISTRESS NOTED AT PRESENT. SEE FLOW SHEET FOR VS, 02 SATS, I/O'S. MONITOR SHOWS NSR, NO ECTOPY NOTED AT PRESENT. BP STABLE AT PRESENT. ABD HARD, FIRM, DISTENDED, ABSENT BOWEL SOUNDS. NGT IN PLACE-TO LWS-DRAINING BROWN BILIOUS DRAINAGE, PLACEMENT CONFIRMED BY AIR. ANN IN PLACE-DRAINING LG AMT OF CLEAR YELLOW URINE AT PRESENT. SKIN INTACT. 3+ PITTING UPPER AND LOWER EXTREMITY EDEMA, 2+ TRUNK. SCROTAL EDEMA-ELEVATED. TEMP PROBE IN PLACE-ON COOLING BLANKET AND ICE PACKS IN PLACE. WILL GIVE TYLENOL HI FOR TEMP >102-SEE EMAR.
[2016-12-17] VITALS: BP 120/78
[2016-12-17 04:47] LABS: ABSOLUTE BASOPHIL COUNT 0.1 /CUMM (0.0-0.2); ABSOLUTE EOSINOPHIL COUNT 0.1 /CUMM (0.0-0.7); ABSOLUTE GRANULOCYTE CT 14.4 /CUMM (1.4-6.5); ABSOLUTE LYMPH COUNT 1.9 /CUMM (1.2-3.4); BASOPHIL % 0.4 % (0.0-2.0); EOSINOPHIL % 0.7 % (0-5); HEMATOCRIT 27.2 % (42-52); MEAN CORPUSCULAR HGB 27.6 PG (27.0-31.0); MEAN CORPUSCULAR HGB CONC 33.5 G/DL (33.0-37.0); MEAN CORPUSCULAR VOLUME 82.3 FL (80.0-94.0); MEAN PLATELET VOLUME 9.2 FL (7.4-10.4); PLATELET COUNT 517 /CUMM (130-400); RBC DISTRIBUTION WIDTH 15.5 % (11.5-14.5); WHITE BLOOD CELL COUNT 17.4 /CUMM (4.8-10.8)
[2016-12-17 05:03] LABS: GRANULOCYTE % 82.6 % (42.2-75.2)
--- NOTE | 2016-12-17 06:01 | PN- General Surgery ---
See Addendum Subjective Subjective: Patient remains intubated and lightly sedated. He continues to have temps to 101.5. He started having some liquid output from his stoma. Objective Vital Signs and I&Os Vital Signs Date Time Temp Pulse Resp B/P Pulse O2 O2 Flow FiO2 Ox Delivery Rate 12/17 0400 95 Ventilator 30% 12/17 0351 30 12/17 0135 30 12/17 0000 94 Ventilator 30% 12/17 0000 101.5 87 30 120/78 94 Ventilator 30% 12/16 2215 30 12/16 2000 94 Ventilator 30% 12/16 1915 30 12/16 1635 30 12/16 1600 100.2 12/16 1600 101.4 85 22 114/72 97 Ventilator 30% 12/16 1420 30 12/16 1200 100.2 12/16 1200 99.7 12/16 1200 30 12/16 1200 101.2 78 24 110/62 97 Ventilator 30% 12/16 0901 30 12/16 0800 101.0 87 31 100/66 97 Ventilator 30% 12/16 0800 97 Ventilator 30% 12/16 0612 30 Intake & Output 12/17 0800 12/17 0000 12/16 1600 12/16 0800 12/16 0000 12/15 1600 Intake Total 910.0 981.0 979.0 932.3 1635.0 Output Total 2405 811 317 5593 530 Balance -1495.0 231.0 284.0 -1622.7 1105.0 Intake, IV 224 466 277 268 895 Intake, Lipid 126.0 120.0 125.0 119.7 134.0 Intake, Oral 0 0 0 Intake, Other 50 Intake, 560 345 577 544.6 606 TPN/PPN Number 0 Bowel Movements Output, 20 25 30 50 Drainage Output, 50 200 50 75 25 Gastric Drainage Output, Stool 30 30 20 50 35 Output, Urine 2325 448 661 1852 420 Patient 235 lb Weight Physical Exam: Gen.: Patient remains intubated, lightly sedated. Opens his eyes when prompted. Not exactly following commands. Abdomen: Significantly distended, but relatively unchanged from prior. The midline incision continues to drain large amounts of purulent output, particularly at the inferior aspect. James remain in place. No significant bowel sounds were heard. Ostomy is edematous and has some bilious liquid output with air. Assessment/Plan Assessment/Plan Patient is an 89 -year-old male who is now postoperative day #15 status post expiratory laparotomy with Kirkland's procedure, complicated by postoperative fevers and reaccumulation of intra-abdominal fluid. He is postoperative day #5 status post reexploration and washout of the abdomen. Fevers continue. Bowel function is starting. Plan: -Patient remains intubated. Keep nothing by mouth with NG tube. -Continue TPN for nutritional support. -Continue IV Rocephin, Flagyl, and fluconazole. -Continue frequent dressing changes. -GI and DVT prophylaxis. -Pain control and sedation. -Medical management per critical care team. -Will discuss with attending. Core Measures/Miscellaneous Edward Catheter Date In: 12/02/16 Venous Thromboembolism VTE Risk Factors: Acute medical illness, Age > 40, Surgery VTE Contraindications: No Contraindications VTE Prophylaxis [facility] Diagnosis: No Beta Abelardo Is Beta Abelardo a Home Med? No Antibiotics Is Patient on Antibiotics? Yes If Yes: infection
--- NOTE | 2016-12-17 07:06 | NUR ---
PT WITH SAS SCORE OF 3 THOUGHOUT SHIFT-FENTANYL GTT REMAINS AT 112.5MCG/HR. PT INTERMITTENTLY SHAKING HEAD WITH STIMULATION, QUIET WHEN LEFT ALONE. NOT FOLLOWING COMMANDS. SUCTIONING FOR SM TO MOD AMT OF THICK WHITE-SUH FROTHY SECREATIONS. BREATH SOUNDS RHONCI WITH INS/EXP WHEEZES, DIMINISHED BREATH SOUNDS AT BASES BILATERALLY.02 SATS 92-95% FOR SHIFT. MONITOR NSR TO ST FOR [id number] ECTOPY THOUGHOUT SHIFT. [id number]'S FOR SHIFT. NGT WITH SM AMT OF GREEN BILIOUS DRAINAGE NOTED. COLOSTOMY STOMA REMAINS PINK, DRAINING SM AMT TO [place]ATERY YELLOW-BROWN DRAINAGE. ABD INCISION WITH COURTNEY-BOTTOM PART DRAINING MOD AMT SEROUS DRAINAGE-DRESSING CHANGED. ABD REMAINS FIRM, DISTENDED, VERY HYPOACTIVE BOWEL SOUNDS. ANN DRAINED LARGE AMT OF CLEAR YELLOW URINE. SKIN REMAINS INTACT. TEMP 101.0-101.7 FOR SHIFT-REMAINS ON COOLING BLANKET, ICE PACKS TO GROIN/ARMPITS, COOL CLOTH TO FOREHEAD.
--- NOTE | 2016-12-17 07:18 | PN- Resident CRCU ---
Subjective HPI/CRCU Issues: She was seen and examined this morning. Patient is arousable to verbal and tactile stimulation. He is unable to provide any review of systems. Objective Vital Signs & I&O Last 8 Hrs of Vitals and I&O: Pt seen and examined at bed side HR was stable most of yesterday except one time when it went up to 114 BP is WNL except one reading it went down to 87/57 at 14:00 TMax 101.7 Intake 2730 and output is 3950 (-1220CC) Arousable to tactile and verbal stimuli. Exam General Appearance: sedated, intubated Head: atraumatic, normal appearance Respiratory: crackles lungs bilaterally Cardiovascular: regular rate/rhythm Gastrointestinal: distended, tense, surgical incision with clips in place. Extremities: normal inspection, +1 edema Weaning Parameters NIF: 42 Minute Volume: 13 Resp rate: 24 Vt: 520 Heart Rate: 107 Weaning Schedule Start Time: 0940 Minute Volume: 13 Resp Rate: 24 Vt: 520 Heart Rate: 107 Current Medications: Current Medications Sig/Ar Start time Last Medication Dose Route Stop Time Status Admin Acetaminophen 650 MG Q6P PRN 12/16 1830 AC GA Acetaminophen 650 MG ONCE ONE 12/16 1800 DC GA 12/16 1801 Acetaminophen 1,000 MG Q6P PRN 12/04 1945 DC 12/15 N/A 1 UNIT IV 0917 Albuterol Sulfate 3 ML EVERY 4 HRS/AWAKE 12/06 1600 AC 12/17 INH 0737 Fat Emulsion 375 ML 1900 12/16 1900 AC 12/16 Intravenous IV 12/17 1859 2030 Fat Emulsion 375 ML 1900 12/15 1900 DC 12/15 Intravenous IV 12/16 1859 1837 Fentanyl Citrate 1,000 MCG Q8H 12/16 1700 AC 12/17 Sodium Chloride 250 ML IV 0526 Fentanyl Citrate 1,000 MCG Q10H 12/14 1115 DC 12/16 Sodium Chloride 250 ML IV 0909 Fluconazole 400 MG DAILY 12/14 1005 AC 12/17 Sodium Chloride 200 ML IV 0908 Furosemide 40 MG ONCE ONE 12/16 1800 DC 12/16 IV 12/16 1801 1801 Heparin Sodium 5,000 UNIT Q8 12/02 2200 AC 12/17 (Porcine) SC 0527 Ipratropium [place] 2.5 ML EVERY 4 HRS/AWAKE 12/06 1600 AC 12/17 INH 0737 Lorazepam 1 MG Q4P PRN 12/13 1715 AC 12/17 IV 0812 Meropenem 1 GM Q8H 12/15 1000 AC 12/17 IV 0908 Ondansetron HCl 4 MG Q6P PRN 12/02 1800 AC IV Pantoprazole Sodium 40 MG DAILY 12/02 2200 AC 12/17 IV 0908 Petrolatum 1 CECY DAILY NEEDED PRN 12/11 2215 AC 12/15 OPH 0549 Total Parenteral 1 UNIT 0 12/16 1900 AC 12/16 Nutrition IV 12/17 [id number] Total Parenteral 1 UNIT 0 12/15 1900 DC 12/15 Nutrition IV 12/16 185 183 Impression/Plan Impression/Problem List Impression: 89/M with PMH of asthma, HTN, bilateral inguinal hernia s/p repair 30 years ago presented to [facility] on 12/12/15 c/o acute abdominal pain. He was found to have acute perforation of sigmoid colon complicated by peritonitis. He underwent emergent surgery with Henny's procedure. He was subsequently sent to ICU for hemodynamic stabilization, further care as patient is at high risk for infection/respiratory failure post extubation. Today he is still intubated, ventilated, slightly arousable, and spiking fevers. Plan Respiratory: #Respiratory failure. Patient has history of COPD. * On fentanyl drip at rate of 100 mL per hour. * Intubated and mechanically ventilated. His ventilation sitting was adjusted recently by Decrease his tidal volume to 500 and respiratory rate of 16. Infectious Diseases: #Recurrent Fever explaratory laparotomy. Post op day #15 Underwent repeat drainage during ICU stay, initially JPs was placed, but the last one was removed yesterday 10 am. OR cultures are sent and positive for Gram postive cocci and gram negative rods. * He is still febrile with Tmax of 101.7 yesterday. His white blood cell went up to 17.4 today * we'll cont' IV meropenem Q8 1gm based on culture and sensitivity. * C. difficile result is negative * We will continue IV tylenol when necessary and cooling blankets. * Continue Fluconazol * We will order CT abdomen with IV contrast and CT chest without IV contrast. Cardiovascular: #New onset A. fib postoperativey. Patient developed A. fib post operative, most likely patient was on stress because of sepsis. He was started on amiodarone drip, patient then converted back to normal sinus rhythm after which a major on trip was discontinued. Currently he is maintaining normal sinus rhythm #New onset bilateral lower extremity edema. Bilateral lower extremity Doppler was done to exclude DVTs as a possible explanation. Results came back negative for DVTs. * we'll keep negative balance #Right Cephalic vein thrombosis Patient was found to have superficial thrombosis in right cephalic vein. He had a peripheral line in that region at the time of surgery. This thrombosis is a superficial and most likely will not lead to any DVTs. * Warm compressors without any anticoagulation for now. Hematology: Patient H&H is stable today, however white blood cell ends of 17.4 * We'll repeat CBC tomorrow Metabolic: #JUANA (Resolved) Today creatinine is 0.7 At some point during this admission patient's creatinine went up to 1.6. Patient last input output were Intake 2730 and output is 3950 (-1220CC) * We will monitor his fluid balance. Alimentary: * NPO with NG decompression * TPN - day 8. * Colostomy bag in place with active drainage * Bowel sounds present, doing well now * Surgery is on board we will follow their recommendation. Neurological: Patient is sedated and intubated Patient is arousable to tactile stimulus. Endocrinology No endocrinology issue at the time SKI No current skin issues Diet patient is nothing by mouth * We'll continue TPN DVT/Prophylaxis: sc lovenox Code Status: Full Code Problem List: 1. Peritonitis Pain Ratin Tomorrow's Labs & Rationales: cbc, icu bundle, xray Plan DVT/Prophylaxis: sc lovenox Code Status: Full Code
[2016-12-17 08:00] VITALS: BP 110/70
--- NOTE | 2016-12-17 10:23 | PN- CRCU ---
Subjective HPI/Critical Care Issues: Patient seen and examined this morning. She is afebrile still in the white count has increased to 17,000. The plan today would be for repeat imaging. The review of systems is unobtainable given sedation and mechanical ventilation. Objective Current Medications: Current Medications Sig/Ar Start time Last Medication Dose Route Stop Time Status Admin Acetaminophen 650 MG Q6P PRN 12/16 1830 AC RI Acetaminophen 650 MG ONCE ONE 12/16 1800 DC RI 12/16 1801 Acetaminophen 1,000 MG Q6P PRN 12/04 1945 DC 12/15 N/A 1 UNIT IV 0917 Albuterol Sulfate 3 ML EVERY 4 HRS/AWAKE 12/06 1600 AC 12/17 INH 0737 Fat Emulsion 375 ML 1900 12/16 1900 AC 12/16 Intravenous IV 12/17 185 2030 Fat Emulsion 375 ML 1900 12/15 1900 DC 12/15 Intravenous IV 12/16 185 1837 Fentanyl Citrate 1,000 MCG Q8H 12/16 1700 AC 12/17 Sodium Chloride 250 ML IV 0526 Fentanyl Citrate 1,000 MCG Q10H 12/14 1115 DC 12/16 Sodium Chloride 250 ML IV 0909 Fluconazole 400 MG DAILY 12/14 1005 AC 12/17 Sodium Chloride 200 ML IV 0908 Furosemide 40 MG ONCE ONE 12/16 1800 DC 12/16 IV 12/16 1801 1801 Heparin Sodium 5,000 UNIT Q8 12/02 2200 AC 12/17 (Porcine) SC 0527 Ipratropium [place] 2.5 ML EVERY 4 HRS/AWAKE 12/06 1600 AC 12/17 INH 0737 Lorazepam 1 MG Q4P PRN 12/13 1715 AC 12/17 IV 0812 Meropenem 1 GM Q8H 12/15 1000 AC 12/17 IV 0908 Ondansetron HCl 4 MG Q6P PRN 12/02 1800 AC IV Pantoprazole Sodium 40 MG DAILY 12/02 2200 AC 12/17 IV 0908 Petrolatum 1 CECY DAILY NEEDED PRN 12/11 2215 AC 12/15 OPH 0549 Total Parenteral 1 UNIT 1900 12/16 1900 AC 12/16 Nutrition IV 12/17 185 2029 Total Parenteral 1 UNIT 1900 12/15 1900 DC 12/15 Nutrition IV 12/16 185 1838 Vital Signs & I&O Last 24 Hrs of Vitals and I&O: Vital Signs Date Time Temp Pulse Resp B/P Pulse O2 O2 Flow FiO2 Ox Delivery Rate 12/17 0744 30 12/17 0634 30 12/17 0400 95 Ventilator 30% 12/17 0351 30 12/17 0135 30 12/17 0000 94 Ventilator 30% 12/17 0000 101.5 87 30 120/78 94 Ventilator 30% 12/16 2215 30 12/16 2000 94 Ventilator 30% 12/16 1915 30 12/16 1635 30 12/16 1600 100.2 12/16 1600 101.4 85 22 114/72 97 Ventilator 30% 12/16 1420 30 12/16 1200 100.2 12/16 1200 99.7 12/16 1200 30 12/16 1200 101.2 78 24 110/62 97 Ventilator 30% Intake & Output 12/17 1600 12/17 0800 12/17 0000 Intake Total 810.0 910.0 Output Total 795 2405 Balance 15.0 -1495.0 Intake, IV 191 224 Intake, Lipid 111.0 126.0 Intake, 508 560 TPN/PPN Output, 50 50 Gastric Drainage Output, Stool 40 30 Output, Urine 705 2325 Exam Other Physical Findings: gen sedated, mechanical ventilation heent ett cvs s1, s2 lungs transmitted abd soft bs+, dressing intact, no pus ext edematous Results Last 24 Hrs of Lab Results: Laboratory Tests 12/17/16 0420: Anion Gap 7, Estimated GFR > 60, Glucose 146 H, Calcium 7.1 L, Phosphorus 4.2, Magnesium 1.9, Total Bilirubin 0.9, AST 41, ALT 24, Albumin 2.0 L, CBC w Diff NO MAN DIFF REQ, RBC 3.30 L, MCV 82.3, MCH 27.6, RDW 15.5 H, MPV 9.2, Gran % 82.6 H, Lymphocytes % 10.9 L, Monocytes % 5.4, Eosinophils % 0.7, Basophils % 0.4, Absolute Granulocytes 14.4 H, Absolute Lymphocytes 1.9, Absolute Monocytes 1.0 H, Absolute Eosinophils 0.1, Absolute Basophils 0.1, PUBS MCHC 33.5 Impression/Plan Impression/Plan Impression/Plan: Impression 89 year old man * 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 for acute abdominal perforation * Respiratory failure with increased bibasilar opacities, maybe fluid overload * History of obstructive lung disease * E.coli and yeast in cultures Plan Respiratory - Monitor chest x-rays and ABGs - TRC/Nebs - Continue mechanical ventilation ID - Meropenem, fluconazole - f/u ID, surgery recommendations CVS - monitor hemodynamics - Superficial cephalic vein thrombosis, no DVT Heme - monitor cbc, coags Metabolic - ins/outs, malnourished - net even to negative fluid balance Alimentary - TPN - surgical follow up Neuro - sedation as necessary for comfort DVT prophylaxis at all times TTS 40 min Plan for repeat imaging today including chest abdomen and pelvis Code Status: Full Code
[2016-12-17 12:00] VITALS: BP 106/58
--- NOTE | 2016-12-17 12:02 | RADIOLOGY REPORT ---
EXAMINATION: XR PORTABLE CHEST CLINICAL INFORMATION: On a ventilator. COMPARISON: 12/16/2016 TECHNIQUE: Portable view of the chest was obtained. FINDINGS: The lungs are hypoinflated and the patient is lordotic which limits evaluation. The fernando is not well seen but tube is approximated to exist 3.6 cm above the fernando. Left upper extremity PICC with tip in the superior cavoatrial junction. Diffusely coarsened interstitial lung markings, unchanged and consistent with chronic lung disease. Retrocardiac opacity, more pronounced on the current study. Possible trace left pleural effusion. No pneumothorax. The cardiomediastinal silhouette is stable. No acute osseous abnormality. IMPRESSION: 1. Supportive devices in acceptable positioning. 2. More prominent appearance of the retrocardiac opacity, likely accentuated due to lung hypoinflation. Otherwise, no significant interval change.
--- NOTE | 2016-12-17 12:09 | PN- Infect Dx ---
Subjective Subjective: MAXIMUM TEMPERATURE 101.5. Objective Last 24 Hrs of Vital Signs/I&O Vital Signs Date Time Temp Pulse Resp B/P Pulse O2 O2 Flow FiO2 Ox Delivery Rate 12/17 1156 30 12/17 0744 30 12/17 0634 30 12/17 0400 95 Ventilator 30% 12/17 0351 30 12/17 0135 30 12/17 0000 94 Ventilator 30% 12/17 0000 101.5 87 30 120/78 94 Ventilator 30% 12/16 2215 30 12/16 2000 94 Ventilator 30% 12/16 1915 30 12/16 1635 30 12/16 1600 100.2 12/16 1600 101.4 85 22 114/72 97 Ventilator 30% 12/16 1420 30 Intake & Output 12/17 1600 12/17 0800 12/17 0000 Intake Total 810.0 910.0 Output Total 795 2405 Balance 15.0 -1495.0 Intake, IV 191 224 Intake, Lipid 111.0 126.0 Intake, 508 560 TPN/PPN Output, 50 50 Gastric Drainage Output, Stool 40 30 Output, Urine 705 2325 Physical Exam Other Physical Findings: He is sedated, on the ventilator, responsive to pain only Lungs bilateral rhonchi Heart regular rhythm with no murmur Abdomen is distended, tender on palpation, incision with no erythema or drainage , with JIAN drain removed; colostomy with small amount of liquid output Extremities 1+ edema all extremities; PICC in the left upper extremity with no inflammation at the site Edward catheter remains in place Results Last 24 Hours of Lab Results: Laboratory Tests 12/17 12/17 1045 0420 Chemistry Sodium (137 - 145 mmol/L) 140 Potassium (3.5 - 5.1 mmol/L) 4.4 Chloride (98 - 107 mmol/L) 103 Carbon Dioxide (22 - 30 mmol/L) 30 Anion Gap (5 - 16) 7 BUN (9 - 20 mg/dL) 28 H Creatinine (0.7 - 1.2 mg/dL) 0.7 Estimated GFR (>60 ml/min) > 60 Glucose (65 - 99 mg/dL) 146 H Calcium (8.4 - 10.2 mg/dL) 7.1 L Phosphorus (2.5 - 4.5 mg/dL) 4.2 Magnesium (1.6 - 2.3 mg/dL) 1.9 Total Bilirubin (0.2 - 1.3 mg/dL) 0.9 AST (17 - 59 U/L) 41 ALT (21 - 72 U/L) 24 Albumin (3.5 - 5.0 g/dL) 2.0 L Hematology CBC w Diff NO MAN DIFF REQ WBC (4.8 - 10.8 /CUMM) 17.4 H RBC (4.70 - 6.10 /CUMM) 3.30 L Hgb (14.0 - 18.0 G/DL) 9.1 L Hct (42 - 52 %) 27.2 L MCV (80.0 - 94.0 FL) 82.3 MCH (27.0 - 31.0 PG) 27.6 RDW (11.5 - 14.5 %) 15.5 H Plt Count (130 - 400 /CUMM) 517 H MPV (7.4 - 10.4 FL) 9.2 Gran % (42.2 - 75.2 %) 82.6 H Lymphocytes % (20.5 - 51.1 %) 10.9 L Monocytes % (1.7 - 9.3 %) 5.4 Eosinophils % (0 - 5 %) 0.7 Basophils % (0.0 - 2.0 %) 0.4 Absolute Granulocytes (1.4 - 6.5 /CUMM) 14.4 H Absolute Lymphocytes (1.2 - 3.4 /CUMM) 1.9 Absolute Monocytes (0.10 - 0.60 /CUMM) 1.0 H Absolute Eosinophils (0.0 - 0.7 /CUMM) 0.1 Absolute Basophils (0.0 - 0.2 /CUMM) 0.1 PUBS MCHC (33.0 - 37.0 G/DL) 33.5 Urines Urine Color Pending Urine Clarity Pending Urine pH Pending Ur Specific [place] Pending Urine Protein Pending Urine Ketones Pending Urine Nitrite Pending Urine Bilirubin Pending Urine Urobilinogen Pending Ur Leukocyte Esterase Pending Ur Microscopic Pending Urine Hemoglobin Pending Urine Glucose Pending Last 24 Hours of [place] Results: Stool C. difficile December 15 negative Urine culture December 17 pending Recent Imaging Studies: Chest x-ray December 17, personally reviewed, reveals a minimal left basilar density unchanged Assessment/Plan Impression: Persistent fevers and leukocytosis now 5 days status post repeat laparotomy for drainage of intraperitoneal abscesses, now 15 days status post initial Kirkland's procedure for peritonitis secondary to a perforated viscus. He remains on Meropenem and Fluconazole, which should adequately cover the organisms isolated from the recent OR culture, but, with persistent fevers, am concerned about a residual infection within the abdomen. He has no evidence for any other focus of infection at this time. Suggestion: 1. Repeat blood cultures [address] of the abdomen and pelvis 3. Increase Fluconazole to 600 mg IV every 24 hours 4. Continue Meropenem
[2016-12-17 16:00] VITALS: BP 120/60
--- NOTE | 2016-12-17 16:12 | CT SCAN REPORT ---
EXAMINATION: CT CHEST, ABDOMEN AND PELVIS WITH CONTRAST CLINICAL INFORMATION: Pneumonia. Patient intubated for a week now. Fever. History of surgery one week ago. Presumptive diagnosis of intestinal obstruction/peritonitis. COMPARISON: CT scan of the chest, abdomen and pelvis dated 12/09/2016, 12/05/[address] scan of the abdomen and pelvis dated 12/02/2016. TECHNIQUE: Multidetector CT helical images of the chest, abdomen and pelvis were performed following the administration of 94 mL of intravenous Optiray 320. The data set was reformatted in the coronal and sagittal planes and reviewed on an independent workstation. DLP: 1521.03 mGy-cm FINDINGS: CHEST: Lungs: Endotracheal tube is in place with tip 2 cm above the fernando. Small right-sided and moderate left-sided simple-appearing layering pleural effusions are seen, extending to the level of the aortic arch on the left side and the level of the pulmonary arterial bifurcation on the right side. Subjacent areas of volume loss and dependent atelectasis are seen in both lower lobes. There is also some mild volume loss and atelectasis seen in the dependent portions of the right middle lobe and left upper lobe, adjacent to the fissures. No dense consolidation with air bronchograms are noted. 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 The central airways are diffusely thickened and are mildly narrowed, but remain patent. A small calcified granuloma is seen in the left lower lobe. Lymphovascular Structures: Ascending aorta is aneurysmal, measuring 4.8 cm at the level of the right main pulmonary artery. Descending aorta at the same level measures 3.3 cm and the aortic arch just beyond the takeoff of the left subclavian artery measures 3.0 cm. Similar measurements were obtained previously. Heart size are normal. Trace pericardial fluid is seen, likely physiologic. No significant mediastinal, hilar or axillary adenopathy is present. Thyroid Gland: Unremarkable to the extent included. Bones: Mild compression deformity of the T7 vertebral body and moderate compression deformity of the T11 vertebral body are noted, unchanged. No suspicious bone findings. ABDOMEN AND PELVIS: Liver, Gallbladder, Biliary Tree: Liver normal size and attenuation. Small calcified granulomas are seen in the liver, unchanged. No focal cystic or solid mass or intra-or extrahepatic ductal dilatation. Hepatic and portal veins patent. A small amount of perihepatic fluid is seen. The gallbladder partially distended and within normal limits. Pancreas: Diffusely atrophic, but otherwise unremarkable. No ductal dilatation, mass, or surrounding stranding. Spleen: Normal size and appearance. Small amount of perisplenic fluid is noted, similar to the previous exam. Splenic vein patent. Adrenal Glands And Kidneys: Adrenal glands normal. Kidneys bilaterally symmetric in size and function. No focal mass, hydronephrosis, nephrolithiasis or perinephric stranding. Ureters And Bladder: Ureters decompressed and within normal limits. Bladder decompressed by a Edward catheter and suboptimally assessed, but grossly unremarkable. Small volume of air is seen within the bladder, likely related to the Edward catheter. Pelvic Viscera: Prostate gland and seminal vesicles are unremarkable. There is a small amount of fluid seen in the left hemiscrotum, consistent with a hydrocele. Bowel Loops: Enteric tube is seen with tip in the gastric body. Rectal tube is seen in place. No definite intra-abdominal free air is seen. The patient is status post distal descending/proximal sigmoid colon resection with a diverting left lower quadrant colostomy again noted. This appears unremarkable. No parastomal herniation of bowel is seen. Henny's pouch in the pelvis remains intact. Small and large bowel loops decompressed and otherwise unremarkable. A small volume of free fluid is seen in the abdomen and pelvis. Appendix in right lower quadrant normal. Abdominal Wall: Diffuse anasarca is present. Midline ventral wall incision is noted with cutaneous singh and small locules of air in the soft tissues seen. There is also some associated soft tissue stranding seen. Findings are consistent with recent postoperative state. Lymphovascular Structures: Abdominal aorta normal in caliber. Moderate atherosclerotic calcifications of the aorta, aortic bifurcation, iliac vessels and other branch vessels, including the origin of the SMA and the right renal artery are noted. No periaortic collections. No abdominal or pelvic adenopathy. Bones: Superior endplate compression deformity of the L1 vertebral body is again seen, unchanged. Moderate degenerative changes are present in the upper and lower lumbar spine. Prominent degenerative disc disease is seen at the lumbosacral junction. IMPRESSION: CT SCAN OF THE CHEST: 1. Endotracheal tube 2 cm above the fernando. 2. Small right-sided and moderate left-sided pleural effusion with associated mild bibasilar subsegmental atelectasis. No focal pneumonia. 3. Other scattered areas of dependent atelectasis also seen in the lungs as discussed above. 4. Underlying emphysematous lung disease is seen. 5. No interval change in 4.8 cm ascending aortic aneurysm. 6. Osteopenia with compression deformities of T7 and T11, unchanged. CT SCAN OF THE ABDOMEN AND PELVIS: 1. Small volume of free fluid is seen in the abdomen, similar to the prior exam. Associated anasarca in the soft tissues is noted. 2. Postoperative changes in the abdomen without suspicious acute complication seen. 3. Postoperative changes associated with the midline abdominal wall incision. 4. Moderate atherosclerotic vascular disease, including at origins of the SMA and right renal artery. 5. Osteopenia with compression deformity of L1, unchanged. 6. Enteric tube in gastric body and rectal tube seen in place.
--- NOTE | 2016-12-17 20:40 | NUR ---
PT OPENS EYES TO VERBAL STIMULI BUT NOT FOLLOWING COMMANDS OR FOCUSING. ORALLY INTUBATED AND VENTED. COARSE BREATH SOUNDS THOUGHOUT BILATERALLY WITH DIMINISHED BREATH SOUNDS AT BASES BILATERALLY. NO SOB OR RESP DISTRESS NOTED AT PRESENT. SEE FLOW SHEET FOR VS, 02 SATS, I/O'S. MONITOR SHOWS NSR, NO ECTOPY NOTED AT PRESENT. BP STABLE AT PRESENT. ANN IN PLACE-DRAINING ADEQUATE AMT OF CLEAR YELLOW URINE. SKIN INTACT. ABD FIRM, DISTENDED, HYPOACTIVE BOWEL SOUNDS. COLOSTOMY IN PLACE-STOMA PINK, DRAINING BROWNISH LIQUID DRAINAGE. NGT IN PLACE TO LWS-DRAINING GREEN BILIOUS DRAINAGE, PLACEMENT CONFIRMED BY AIR. ABD INCISION WITH COURTNEY-DRESSING CHANGED-LOWER PART OF INCISION DRAINING SEROUS DRAINAGE. ON FENTANYL GTT AT 100MCG/HR. SOFT BILATERAL WRIST RESTRAINTS ON. ON COOLING BLANKET
[2016-12-18] VITALS: BP 95/57
[2016-12-18 05:42] LABS: ABSOLUTE BASOPHIL COUNT 0.1 /CUMM (0.0-0.2); ABSOLUTE EOSINOPHIL COUNT 0.1 /CUMM (0.0-0.7); ABSOLUTE GRANULOCYTE CT 14.3 /CUMM (1.4-6.5); ABSOLUTE LYMPH COUNT 1.8 /CUMM (1.2-3.4); ABSOLUTE MONOCYTE COUNT 0.9 /CUMM (0.10-0.60); BASOPHIL % 0.4 % (0.0-2.0); EOSINOPHIL % 0.8 % (0-5); GRANULOCYTE % 83.2 % (42.2-75.2); HEMATOCRIT 25.3 % (42-52); MEAN CORPUSCULAR HGB 28.4 PG (27.0-31.0); MEAN CORPUSCULAR HGB CONC 34.3 G/DL (33.0-37.0); MEAN CORPUSCULAR VOLUME 82.8 FL (80.0-94.0); MEAN PLATELET VOLUME 9.3 FL (7.4-10.4); PLATELET COUNT 526 /CUMM (130-400); RBC DISTRIBUTION WIDTH 15.5 % (11.5-14.5); RED BLOOD CELL CT 3.05 /CUMM (4.70-6.10); WHITE BLOOD CELL COUNT 17.2 /CUMM (4.8-10.8)
--- NOTE | 2016-12-18 06:09 | PN- General Surgery ---
Subjective Subjective: REMAINS INTUBATED ON FENTANYL GTT OPENS EYES AND MEOVES HEAD WITH DRSG CHANGE THIS AM ANTIBIOTICS CHANGED BACK TO MEROPENUM CONTINUES WITH TEMPS TO 101 WITH RISING WBC Objective Vital Signs and I&Os Vital Signs Date Time Temp Pulse Resp B/P Pulse O2 O2 Flow FiO2 Ox Delivery Rate 12/18 0400 97 Ventilator 30% 12/18 0239 30 12/18 0033 30 12/18 0000 99 Ventilator 30% 12/18 0000 100.3 81 25 95/57 99 Ventilator 30% 12/17 2215 30 12/17 2000 97 Ventilator 30% 12/17 1930 30 12/17 1610 30 12/17 1600 100.0 77 20 120/60 98 Ventilator 30% 12/17 1600 98 Ventilator 30% 12/17 1537 Ventilator 40% 12/17 1200 99 Ventilator 30% 12/17 1200 98.5 81 18 106/58 99 Ventilator 30% 12/17 1156 30 12/17 0800 94 Ventilator 30% 12/17 0800 101.4 86 31 110/70 94 Ventilator 30% 12/17 0744 30 12/17 0634 30 Intake & Output 12/18 0800 12/18 0000 12/17 1600 12/17 0800 12/17 0000 12/16 1600 Intake Total 777.0 1393.0 810.0 910.0 981.0 Output Total 2019 471 123 0657 750 Balance -1243.0 613.0 15.0 -1495.0 231.0 Intake, IV 167 538 191 224 466 Intake, Lipid 104.0 149.0 111.0 126.0 120.0 Intake, Other 30 30 50 Intake, 476 676 508 560 345 TPN/PPN Output, 20 Drainage Output, 50 200 50 50 200 Gastric Drainage Output, Stool 20 30 40 30 30 Output, Urine 1950 231 458 8582 500 Patient 228 lb Weight Physical Exam: ABDOMEN WOUND CLOSED WITH COURTNEY OPEN AREA AT INFERIOR END OF WOUND CONTINUES WITH MUCOPURULENT DRAINGE NOT FOUL SWELLING NO CELLULITIS PREESENT SCANT BS STOMA EDEMATOUS WITHOUT ISCHEMIA SMALL AMT OF BROWN LIQUID STOOL IN OSTOMY Assessment/Plan Assessment/Plan SURGICAL UNCHANGED PLAN F/U AM LABS CONT IV ABX AWAIT INPROVED BOWEL FXN CONT ICU PROTOCOL Core Measures/Miscellaneous Edward Catheter Date In: 12/02/16 Venous Thromboembolism VTE Risk Factors: Acute medical illness, Age > 40, Surgery VTE Contraindications: No Contraindications VTE Prophylaxis Ordered Inpt Mech & Pharm VTE Diagnosis: No Beta Abelardo Is Beta Abelardo a Home Med? No Antibiotics Is Patient on Antibiotics? Yes If Yes: infection
--- NOTE | 2016-12-18 06:33 | NUR ---
PT REMAINS SEDATED ON FENTANYL GTT AT 100MCG/HR-SAS SCORE 3-4 FOR SHIFT-OPENING EYES TO VERBAL STIMULI, NOT FOCUSING OR FOLLOWING COMMANDS. ATIVAN 1MG IV X1 WITH GOOD EFFECT-SEE EMAR. COARSE BREATH SOUND THOUGHOUT BILATERALLY, SUCTIONING FOR SM AMT OF FROTHY WHITE SECREATIONS. 02 SATS 97-100 FOR SHIFT. MONITOR NSR, NO ECTOPY, HR- 80'S-90'S FOR SHIFT, SBP-90''S TO 110'S FOR SHIFT. ABD REMAINS FIRM, DISTENDED, HYPOACTIVE BOWEL SOUNDS. COLOSTOMY STOMA PINK, DRAINING SM AMT OF LIQUID BROWN DRAINAGE. NGT TO LWS, DRAINING GREEN BILIOUS DRAINAGE, PLACEMENT CONFIRMED BY AIR. ABD INCISION STAPLE LINE INTACT, BOTTOM OF INCISION DRAINING SEROUS DRAINAGE-DRESSING CHANGED TWICE DURING SHIFT. ANN DRAINING GOOD AMT OF CLEAR YELLOW URINE. SKIN INTACT. COOLING BLANKET REMAINS ON-TEMP-99.8-100.9 FOR SHIFT.
[2016-12-18 08:00] VITALS: BP 140/80
--- NOTE | 2016-12-18 09:52 | PN- CRCU ---
Subjective HPI/Critical Care Issues: Is intubated and sedated continues to remain febrile Objective Current Medications: Current Medications Sig/Ar Start time Last Medication Dose Route Stop Time Status Admin Acetaminophen 650 MG Q6P PRN 12/16 1830 AC [place] Albuterol Sulfate 3 ML EVERY 4 HRS/AWAKE 12/06 1600 AC 12/18 INH 0827 Fat Emulsion 375 ML 1900 12/17 1900 AC 12/17 Intravenous IV 12/18 1852007 Fat Emulsion 375 ML 1900 12/16 1900 DC 12/16 Intravenous IV 12/17 1852029 Fentanyl Citrate 1,000 MCG Q8H 12/16 1700 AC 12/18 Sodium Chloride 250 ML IV 0157 Fluconazole 600 MG DAILY 12/18 1000 CAN Sodium Chloride 200 ML IV Fluconazole 400 MG DAILY 12/18 1000 AC Sodium Chloride 200 ML IV Fluconazole 200 MG DAILY 12/18 1000 AC Sodium Chloride 100 ML IV Fluconazole 200 MG ONCE ONE 12/17 1445 DC 12/17 Sodium Chloride 100 ML IV 12/17 1544 1615 Fluconazole 200 MG DAILY 12/17 1441 DC Sodium Chloride 100 ML IV Fluconazole 400 MG DAILY 12/14 1005 DC 12/17 Sodium Chloride 200 ML IV 0908 Furosemide 40 MG ONCE ONE 12/17 1530 DC 12/17 IV 12/17 1531 1615 Heparin Sodium 5,000 UNIT Q8 12/02 2200 AC 12/18 (Porcine) SC 0552 Ipratropium [place] 2.5 ML EVERY 4 HRS/AWAKE 12/06 1600 AC 12/18 INH 0827 Lorazepam 1 MG Q4P PRN 12/13 1715 AC 12/18 IV 0209 Meropenem 1 GM Q8H 12/15 1000 AC 12/18 IV 0157 Ondansetron HCl 4 MG Q6P PRN 12/02 1800 AC IV Pantoprazole Sodium 40 MG DAILY 12/02 2200 AC 12/17 IV 0908 Petrolatum 1 CECY DAILY NEEDED PRN 12/11 2215 AC 12/17 OPH 1600 Total Parenteral 1 UNIT 1900 12/17 1900 AC 12/17 Nutrition IV 12/18 1852005 Total Parenteral 1 UNIT 1900 12/16 1900 DC 12/16 Nutrition IV 12/17 Vital Signs & I&O Last 24 Hrs of Vitals and I&O: Vital Signs Date Time Temp Pulse Resp B/P Pulse O2 O2 Flow FiO2 Ox Delivery Rate 12/18 0819 30 12/18 0800 100.6 96 34 140/80 95 Ventilator 30% 12/18 0611 30 12/18 0400 97 Ventilator 30% 12/18 0239 30 12/18 0033 30 12/18 0000 99 Ventilator 30% 12/18 0000 100.3 81 25 95/57 99 Ventilator 30% 12/17 2215 30 12/17 2000 97 Ventilator 30% 12/17 1930 30 12/17 1610 30 12/17 1600 100.0 77 20 120/60 98 Ventilator 30% 12/17 1600 98 Ventilator 30% 12/17 1537 Ventilator 40% 12/17 1200 99 Ventilator 30% 12/17 1200 98.5 81 18 106/58 99 Ventilator 30% 12/17 1156 30 Intake & Output 12/18 1600 12/18 0800 12/18 0000 Intake Total 849.0 777.0 Output Total 705 2020 Balance 144.0 -1243.0 Intake, IV 185 167 Intake, Lipid 119.0 104.0 Intake, Other 30 Intake, 545 476 TPN/PPN Output, 50 50 Gastric Drainage Output, Stool 20 20 Output, Urine 635 1950 Oxygen saturation 0.394-95% exam of his chest shows scattered rhonchi cardiac exam shows a regular S1 and S2 without murmurs chest x-rays without significant change Impression/Plan Impression/Plan Impression/Plan: Unfortunate 89-year-old gentleman is ventilator dependent remains afebrile with leukocytosis on broad-spectrum antibiotics, weaning is not feasible at this time Recommendations: Continue present ventilator settings. Follow-up ID recommendations. Further discussions regarding direction of care to be conducted on Tuesday. Code Status: Full Code
--- NOTE | 2016-12-18 10:35 | RADIOLOGY REPORT ---
EXAMINATION: XR PORTABLE CHEST CLINICAL INFORMATION: Intubated patient on ventilator. COMPARISON: Several prior chest x-rays, most recent of which is dated 12/17/2016. T scan of the chest dated 12/17/2016. TECHNIQUE: AP erect portable view of the chest was obtained. FINDINGS: Endotracheal tube approximately 3 cm above fernando. Enteric tube seen coursing into the lower chest with more distal extent not appreciated on this exam. 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 Cardiac mediastinal silhouette is borderline enlarged, unchanged. Lungs bilaterally symmetrically expanded with slight thickening of the central airways and bibasilar reticular opacities, consistent with subsegmental atelectasis. The recently demonstrated bilateral pleural effusions on yesterday's CT scan are poorly appreciated on plain film. Bony structures are grossly unremarkable. IMPRESSION: 1. Endotracheal tube tip 3 cm above fernando. 2. Coarse of enteric tube not adequately assessed on this exam. 3. Bibasilar subsegmental atelectasis. Known small bilateral pleural effusions poorly appreciated on plain film. 4. Thickened airways, consistent with patient's underlying obstructive lung disease. 5. 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
--- NOTE | 2016-12-18 11:01 | PN- General Surgery ---
Surgical Brief Attending Note Brief Attending Note: Stable. Fever curve improved. leukocytosis stable. CT reviewed. No significant process that warrants intervention in the abdomen. Defer thoracentesis for now. CXR improved today. Severe anasarca. Rec: continue abx as ordered. No further surgical intervention in the abdomen will be undertaken. No drainable fluid collections as of now. Repeat CT 5-7 days if unimproved. Suspect peristent inflammatory state, which will hopefully resolve with supportive measures. In regards to total body fluid status, he seems to respond to diuresis daily with lasix without overt hypovolemic state. Would continue as needed furosemide to attempt negative fluid balance but would avoid scheduled diuresis to avoid getting into a prerenal/renal failure state. Minimize iv fluids. Hold GI feeds until Tuesday.
--- NOTE | 2016-12-18 14:21 | PN- Resident CRCU ---
Subjective HPI/CRCU Issues: Acute post-op bloodloss anemia: Pt H/H was at 8.6--> 8.1--today 7.0; she is s/p ORIF. Will con't monitor * transfuse for goal 06/17 * Type and cross * Monitor CBC/BEP * TRANSFUSE 1 UNIT TODAY. 24 Hour Events: none Objective Vital Signs & I&O Last 8 Hrs of Vitals and I&O: none Exam General Appearance: sedated, intubated, lethargic Weaning Parameters NIF: 42 Minute Volume: 13 Resp rate: 24 Vt: 520 Heart Rate: 107 Weaning Schedule Start Time: 0940 Minute Volume: 13 Resp Rate: 24 Vt: 520 Heart Rate: 107 Current Medications: none Impression/Plan Impression/Problem List Impression: 89/M with PMH of asthma, HTN, bilateral inguinal hernia s/p repair 30 years ago presented to [facility] on 12/12/15 c/o acute abdominal pain. He was found to have acute perforation of sigmoid colon complicated by peritonitis. He underwent emergent surgery with Henny's procedure. He was subsequently sent to ICU for hemodynamic stabilization, further care as patient is at high risk for infection/respiratory failure post extubation. Today he is still intubated, ventilated, slightly arousable, and spiking fevers. Plan Respiratory: #Respiratory failure: Patient has history of COPD. * On fentanyl drip at rate of 100 mL per hour. * Intubated and mechanically ventilated. Patient on vcv a/c mode, tidal volume 500, PEEP of 5, FiO2 30. Rate of 16. Infectious Diseases: #Recurrent Fever explaratory laparotomy. Post op day #16 Underwent repeat drainage during ICU stay, initially JPs was placed, but the last one was removed 2 days ago. OR cultures are sent and positive for Gram postive cocci and gram negative rods. * He is still febrile with Tmax of 101.4 in 24 hrs. His white blood cell went up to 17.2 today * we'll cont' IV meropenem Q8 1gm based on culture and sensitivity. * C. difficile result is negative * We will continue IV tylenol when necessary and cooling blankets. * Continue Fluconazol per ID recommendations * We will order CT abdomen with IV contrast and CT chest without IV contrast. Cardiovascular: #New onset A. fib postoperativey. Patient developed A. fib post operative, most likely patient was on stress because of sepsis. He was started on amiodarone drip, patient then converted back to normal sinus rhythm after which a major on trip was discontinued. Currently he is maintaining normal sinus rhythm #New onset bilateral lower extremity edema. Bilateral lower extremity Doppler was done to exclude DVTs as a possible explanation. Results came back negative for DVTs. * we'll keep negative balance #Right Cephalic vein thrombosis Patient was found to have superficial thrombosis in right cephalic vein. He had a peripheral line in that region at the time of surgery. This thrombosis is a superficial and most likely will not lead to any DVTs. * Warm compressors without any anticoagulation for now. Hematology: Patient H&H is stable today, however white blood cell ends of 17.2 * We'll repeat CBC tomorrow Metabolic: #JUANA (Resolved) Today creatinine is 0.7 At some point during this admission patient's creatinine went up to 1.6. We will give another 40mg of IV lasix today as he looks significantly overloaded. He is 17 L up from admission but he tends to be rougly even each day; but this does not take into account the insensible losses that would likely be significant in this on/off febrile pt who is intubated and sedated. * Lasix 40mg IV. * We will monitor his fluid balance. Alimentary: * NPO with NG decompression * TPN - day 9. * Colostomy bag in place with active drainage * Bowel sounds present, doing well now * Surgery is on board we will follow their recommendation: Consider tube feeds on Tuesday. Neurological: Patient is sedated and intubated Patient is arousable to tactile stimulus. Endocrinology No endocrinology issue at the time SKI No current skin issues Diet patient is nothing by mouth * We'll continue TPN DVT/Prophylaxis: sc lovenox Problem List: 1. Back strain 2. Bronchitis 3. Pulmonary edema 4. COPD (chronic obstructive pulmonary disease) Pain Ratin Pain Location: none Tomorrow's Labs & Rationales: icu bundle Plan DVT/Prophylaxis: sc lovenox Code Status: Full Code
[2016-12-18 16:00] VITALS: BP 128/80
[2016-12-19] VITALS: BP 109/64
[2016-12-19 05:16] LABS: ABSOLUTE BASOPHIL COUNT 0.2 /CUMM (0.0-0.2); ABSOLUTE EOSINOPHIL COUNT 0.1 /CUMM (0.0-0.7); ABSOLUTE GRANULOCYTE CT 12.9 /CUMM (1.4-6.5); ABSOLUTE LYMPH COUNT 1.6 /CUMM (1.2-3.4); ABSOLUTE MONOCYTE COUNT 0.9 /CUMM (0.10-0.60); EOSINOPHIL % 0.6 % (0-5); GRANULOCYTE % 82.6 % (42.2-75.2); HEMATOCRIT 23.9 % (42-52); MEAN CORPUSCULAR HGB 28.3 PG (27.0-31.0); MEAN CORPUSCULAR HGB CONC 34.3 G/DL (33.0-37.0); MEAN CORPUSCULAR VOLUME 82.3 FL (80.0-94.0); MEAN PLATELET VOLUME 9.2 FL (7.4-10.4); PLATELET COUNT 546 /CUMM (130-400); RBC DISTRIBUTION WIDTH 15.5 % (11.5-14.5); WHITE BLOOD CELL COUNT 15.7 /CUMM (4.8-10.8)
--- NOTE | 2016-12-19 07:53 | PN- Infect Dx ---
Subjective Subjective: MAXIMUM TEMPERATURE 101.3. Objective Last 24 Hrs of Vital Signs/I&O Vital Signs Date Time Temp Pulse Resp B/P Pulse O2 O2 Flow FiO2 Ox Delivery Rate 12/19 0607 30 12/19 0400 97 Ventilator 30% 12/19 0328 30 12/19 0214 30 12/19 0000 97 Ventilator 30% 12/19 0000 99.8 89 25 109/64 97 Ventilator 30% 12/18 2208 30 12/18 2000 98 Ventilator 30% 12/18 1904 30 12/18 1602 30 12/18 1600 98 Ventilator 30% 12/18 1600 99.8 85 22 128/80 98 Ventilator 30% 12/18 1431 30 12/18 1200 97 Ventilator 30% 12/18 1109 30 12/18 0819 30 12/18 0800 95 Ventilator 30% 12/18 0800 100.6 96 34 140/80 95 Ventilator 30% Intake & Output 12/19 0800 12/19 0000 12/18 1600 Intake Total 934.0 1020.0 1250.0 Output Total 550 2351 690 Balance 384.0 -1331.0 560.0 Intake, IV 209 288 560 Intake, Lipid 132.0 166.0 124.0 Intake, Oral 0 Intake, 593 566 566 TPN/PPN Output, 50 200 150 Gastric Drainage Output, Stool 0 1 40 Output, Urine 500 2150 500 Patient 227 lb Weight Physical Exam Other Physical Findings: He remains on sedation, responsive to pain, on the ventilator Lungs scattered rhonchi bilaterally Heart regular rhythm with no murmur Abdomen is distended, incision clean, with no erythema or drainage; colostomy with a small amount of liquid output Extremities 1+ edema all extremities; PICC in the left upper extremity with no inflammation at the site Edward catheter remains in place Results Last 24 Hours of Lab Results: Laboratory Tests 12/19 0455 Chemistry Sodium (137 - 145 mmol/L) 138 Potassium (3.5 - 5.1 mmol/L) 3.8 Chloride (98 - 107 mmol/L) 98 Carbon Dioxide (22 - 30 mmol/L) 32 H Anion Gap (5 - 16) 7 BUN (9 - 20 mg/dL) 25 H Creatinine (0.7 - 1.2 mg/dL) 0.7 Estimated GFR (>60 ml/min) > 60 Glucose (65 - 99 mg/dL) 163 H Calcium (8.4 - 10.2 mg/dL) 7.4 L Phosphorus (2.5 - 4.5 mg/dL) 4.6 H Magnesium (1.6 - 2.3 mg/dL) 1.8 Total Bilirubin (0.2 - 1.3 mg/dL) 2.4 H AST (17 - 59 U/L) 39 ALT (21 - 72 U/L) 29 Albumin (3.5 - 5.0 g/dL) 2.0 L Hematology CBC w Diff NO MAN DIFF REQ WBC (4.8 - 10.8 /CUMM) 15.7 H RBC (4.70 - 6.10 /CUMM) 2.90 L Hgb (14.0 - 18.0 G/DL) 8.2 L Hct (42 - 52 %) 23.9 L MCV (80.0 - 94.0 FL) 82.3 MCH (27.0 - 31.0 PG) 28.3 RDW (11.5 - 14.5 %) 15.5 H Plt Count (130 - 400 /CUMM) 546 H MPV (7.4 - 10.4 FL) 9.2 Gran % (42.2 - 75.2 %) 82.6 H Lymphocytes % (20.5 - 51.1 %) 9.9 L Monocytes % (1.7 - 9.3 %) 5.9 Eosinophils % (0 - 5 %) 0.6 Basophils % (0.0 - 2.0 %) 1.0 Absolute Granulocytes (1.4 - 6.5 /CUMM) 12.9 H Absolute Lymphocytes (1.2 - 3.4 /CUMM) 1.6 Absolute Monocytes (0.10 - 0.60 /CUMM) 0.9 H Absolute Eosinophils (0.0 - 0.7 /CUMM) 0.1 Absolute Basophils (0.0 - 0.2 /CUMM) 0.2 PUBS MCHC (33.0 - 37.0 G/DL) 34.3 Last 24 Hours of [place] Results: Blood cultures 2 December 17 negative so far Sputum culture December 17 light growth of yeast Urine culture December 17 negative Recent Imaging Studies: CT of the chest, abdomen and pelvis December 17 reveals a small right-sided and moderate left-sided pleural effusion with associated mild bibasilar subsegmental atelectasis; small volume of free fluid in the abdomen, with no collections seen ; Kirkland's pouch in the pelvis remains intact Chest x-ray December 18 bibasilar atelectasis Assessment/Plan Impression: Fevers persist though they appear to be lower grade with a slight decrease in his white blood cell count now 1 week status post repeat laparotomy for drainage of intraperitoneal abscesses and 17 days status post his initial Kirkland's procedure for peritonitis secondary to a perforated viscus. He remains on Meropenem and Fluconazole, which should adequately cover the organisms isolated from the recent OR culture, with recent CT scan negative for any drainable collection. The CT scan did demonstrate bilateral pleural effusions, which could represent potential foci of infection, though they more likely represent fluid overload and, if his fevers and white blood cell count continue to decrease, no further evaluation of these should be necessary. Suggestion: 1. Follow-up recent cultures 2. Continue Meropenem and Fluconazole
[2016-12-19 08:00] VITALS: BP 108/60
--- NOTE | 2016-12-19 08:37 | PN- Resident CRCU ---
Subjective HPI/CRCU Issues: Patient was seen and examined. Patient is arousable to verbal and tactile stimulation. He is unable to provide any review of systems. Objective Vital Signs & I&O Last 8 Hrs of Vitals and I&O: Intake & Output 12/19 1600 Intake Total Output Total Balance Patient 100.017 kg Weight Exam General Appearance: sedated, intubated Head: atraumatic, normal appearance Respiratory: crackles (overlying bilaterally) Cardiovascular: regular rate/rhythm Gastrointestinal: distended, tenths, surgical incision with clips in place. Less erythema around the surgical incision. Extremities: +1 lower extremity edema bilaterally Weaning Parameters NIF: 42 Minute Volume: 13 Resp rate: 24 Vt: 520 Heart Rate: 107 Weaning Schedule Start Time: 0940 Minute Volume: 13 Resp Rate: 24 Vt: 520 Heart Rate: 107 Current Medications: Current Medications Sig/Ar Start time Last Medication Dose Route Stop Time Status Admin Acetaminophen 650 MG Q6P PRN 12/16 1830 AC [place] Albuterol Sulfate 3 ML EVERY 4 HRS/AWAKE 12/06 1600 AC 12/19 INH 1128 Fat Emulsion 375 ML 1900 12/19 1900 AC Intravenous IV 12/20 1859 Fat Emulsion 375 ML Q24H 12/18 1900 AC 12/18 Intravenous IV 12/19 1859 1943 Fat Emulsion 375 ML 1900 12/17 1900 DC 12/17 Intravenous IV 12/18 1852007 Fentanyl Citrate 1,000 MCG Q8H 12/16 1700 AC 12/19 Sodium Chloride 250 ML IV 1005 Fluconazole 400 MG DAILY 12/18 1000 AC 12/19 Sodium Chloride 200 ML IV 1006 Fluconazole 200 MG DAILY 12/18 1000 AC 12/19 Sodium Chloride 100 ML IV 1006 Furosemide 40 MG ONCE ONE 12/19 1215 DC IV 12/19 1216 Furosemide 40 MG ONCE ONE 12/18 1530 DC 12/18 IV 12/18 1531 1530 Heparin Sodium 5,000 UNIT Q8 12/02 2200 AC 12/19 (Porcine) SC 0529 Ipratropium [place] 2.5 ML EVERY 4 HRS/AWAKE 12/06 1600 AC 12/19 INH 1129 Lorazepam 1 MG Q4P PRN 12/13 1715 AC 12/19 IV 0630 Meropenem 1 GM Q8H 12/15 1000 AC 12/19 IV 1006 Ondansetron HCl 4 MG Q6P PRN 12/02 1800 AC IV Pantoprazole Sodium 40 MG DAILY 12/02 2200 AC 12/19 IV 1006 Petrolatum 1 CECY DAILY NEEDED PRN 12/11 2215 AC 12/17 OPH 1600 Total Parenteral 1 UNIT ONE 12/19 1899 AC Nutrition IV 12/20 1858 Total Parenteral 1 UNIT ONE 12/18 1900 AC 12/18 Nutrition IV 12/19 1858 1943 Total Parenteral 1 UNIT 1900 12/17 1900 DC 12/17 Nutrition IV 12/18 Impression/Plan Impression/Problem List Impression: 89/M with PMH of asthma, HTN, bilateral inguinal hernia s/p repair [address] [facility] on 12/12/15 c/o acute abdominal pain. He was found to have acute perforation of sigmoid colon complicated by peritonitis. He underwent emergent surgery with Henny's procedure. He was subsequently sent to ICU for hemodynamic stabilization, further care as patient is at high risk for infection/respiratory failure post extubation. Today he is still intubated, ventilated, slightly arousable, and spiking fevers. Plan Respiratory: #Respiratory failure. Patient has history of COPD. * On fentanyl drip * Intubated and mechanically ventilated. His ventilation sitting was adjusted recently by Decrease his tidal volume to 500 and respiratory rate of 16. Infectious Diseases: #Recurrent Fever explaratory laparotomy. Post op day #17 Underwent repeat drainage during ICU stay, initially JPs was placed, but the last one was removed yesterday 10 am. OR cultures are sent and positive for Gram postive cocci and gram negative rods. * He is still febrile with Tmax of 101.3 yesterday. WBCs went down to 15.7 today. * we'll cont' IV meropenem Q8 1gm based on culture and sensitivity. * C. difficile result is negative * We will continue IV tylenol when necessary and cooling blankets. * Continue Fluconazol 600 daily. Cardiovascular: #New onset A. fib postoperativey. Patient developed A. fib post operative, most likely patient was on stress because of sepsis. He was started on amiodarone drip, patient then converted back to normal sinus rhythm after which a major on trip was discontinued. Currently he is maintaining normal sinus rhythm #New onset bilateral lower extremity edema. Bilateral lower extremity Doppler was done to exclude DVTs as a possible explanation. Results came back negative for DVTs. * we'll keep negative balance #Right Cephalic vein thrombosis Patient was found to have superficial thrombosis in right cephalic vein. He had a peripheral line in that region at the time of surgery. This thrombosis is a superficial and most likely will not lead to any DVTs. * Warm compressors without any anticoagulation for now. Hematology: Patient H&H is down to 8.2 and 23.9 comparing to yesterday which was 8.6 and 25.3, white blood cell is down to 15.7 today * We'll repeat CBC tomorrow Metabolic: #JUANA (Resolved) Today creatinine is 0.7 At some point during this admission patient's creatinine went up to 1.6. Patient last input output were Intake 3164 and output is 3590 (-[id number]) * We will monitor his fluid balance. * We will give Lasix 40 mg once as a try to keep him negative balance Alimentary: * NPO with NG decompression * TPN - day 11. * Colostomy bag in place with active drainage * Bowel sounds present, doing well now * Surgery is on board we will follow their recommendation. Neurological: Patient is sedated and intubated Patient is arousable to tactile stimulus. Endocrinology No endocrinology issue at the time SKI No current skin issues Diet patient is nothing by mouth * We'll continue TPN DVT/Prophylaxis: sc lovenox Code Status: Full Code Problem List: 1. Peritonitis Pain Ratin Tomorrow's Labs & Rationales: CBC and ICU bundle Plan DVT/Prophylaxis: sc lovenox Code Status: Full Code
--- NOTE | 2016-12-19 10:23 | PN- Pulmonary ---
Subjective HPI/Critical Care Issues: Patient remains intubated and obtunded he continues to have low-grade fevers Objective Current Medications: Current Medications Sig/Ar Start time Last Medication Dose Route Stop Time Status Admin Acetaminophen 650 MG Q6P PRN 12/16 1830 AC [place] Albuterol Sulfate 3 ML EVERY 4 HRS/AWAKE 12/06 1600 AC 12/19 INH 0812 Fat Emulsion 375 ML Q24H 12/18 1900 AC 12/18 Intravenous IV 12/19 185 1943 Fat Emulsion 375 ML 1900 12/17 1900 DC 12/17 Intravenous IV 12/18 1852007 Fentanyl Citrate 1,000 MCG Q8H 12/16 1700 AC 12/19 Sodium Chloride 250 ML IV 1005 Fluconazole 400 MG DAILY 12/18 1000 AC 12/19 Sodium Chloride 200 ML IV 1006 Fluconazole 200 MG DAILY 12/18 1000 AC 12/19 Sodium Chloride 100 ML IV 1006 Furosemide 40 MG ONCE ONE 12/18 1530 DC 12/18 IV 12/18 1531 1530 Heparin Sodium 5,000 UNIT Q8 12/02 2200 AC 12/19 (Porcine) SC 0529 Ipratropium [place] 2.5 ML EVERY 4 HRS/AWAKE 12/06 1600 AC 12/19 INH 0812 Lorazepam 1 MG Q4P PRN 12/13 1715 AC 12/19 IV 0630 Meropenem 1 GM Q8H 12/15 1000 AC 12/19 IV 1006 Ondansetron HCl 4 MG Q6P PRN 12/02 1800 AC IV Pantoprazole Sodium 40 MG DAILY 12/02 2200 AC 12/19 IV 1006 Petrolatum 1 CECY DAILY NEEDED PRN 12/11 2215 12/17 OPH 1600 Total Parenteral 1 UNIT ONE 12/18 1900 AC 12/18 Nutrition IV 12/19 185 1943 Total Parenteral 1 UNIT 1900 12/17 1900 DC 12/17 Nutrition IV 12/18 Vital Signs & I&O Last 24 Hrs of Vitals and I&O: Vital Signs Date Time Temp Pulse Resp B/P Pulse O2 O2 Flow FiO2 Ox Delivery Rate 12/19 0804 30 12/19 0800 98.6 88 19 108/60 97 Ventilator 30% 12/19 0800 97 Ventilator 30% 12/19 0607 30 12/19 0400 97 Ventilator 30% 12/19 0328 30 12/19 0214 30 12/19 0000 97 Ventilator 30% 12/19 0000 99.8 89 25 109/64 97 Ventilator 30% 12/18 2208 30 12/18 2000 98 Ventilator 30% 12/18 1904 30 12/18 1602 30 12/18 1600 98 Ventilator 30% 12/18 1600 99.8 85 22 128/80 98 Ventilator 30% 12/18 1431 30 12/18 1200 97 Ventilator 30% 12/18 1109 30 Intake & Output 12/19 1600 12/19 0800 12/19 0000 Intake Total 934.0 1020.0 Output Total 550 2351 Balance 384.0 -1331.0 Intake, IV 209 288 Intake, Lipid 132.0 166.0 Intake, Oral Intake, 593 566 TPN/PPN Output, 50 200 Gastric Drainage Output, Stool 0 1 Output, Urine 500 2150 Patient 221 lb Weight Impression saturations FiO2 0.396% exam of his chest showed scattered rhonchi cardiac exam shows regular S1 and S2 without murmurs abdominal exam is distended and firm rest x-rays without acute changes Impression/Plan Impression/Plan Impression/Plan: Unfortunate 89-year-old gentleman is ventilator dependent remains afebrile with leukocytosis on broad-spectrum antibiotics, weaning is not feasible at this time Recommendations: Continue present ventilator settings. Follow-up ID recommendations. Further discussions regarding direction of care to be conducted on Tuesday. No further pulmonary recommendations
--- NOTE | 2016-12-19 11:07 | RADIOLOGY REPORT ---
EXAMINATION: XR PORTABLE CHEST CLINICAL INFORMATION: Status-post intubation. COMPARISON: Prior chest radiographs dated 12/18/2016. TECHNIQUE: An AP portable upright view of the chest was obtained. FINDINGS: The heart, great vessels, pulmonary vasculature and mediastinum are stable. The heart size is again mildly enlarged. There is atherosclerotic change of the aortic knob. There is mild pulmonary vascular congestion, without overt pulmonary edema. An endotracheal tube is seen with tip positioned approximately 3.4 cm superior to the fernando. There is persistent mild left base airspace disease. The right lung field appears relatively clear. There is no acute osseous abnormality. IMPRESSION: 1. There is mild cardiomegaly and pulmonary vascular congestion. No overt pulmonary edema is seen. 2. There is persistent mild left base atelectasis versus infiltrate. 3. Endotracheal tube tip position as above.
--- NOTE | 2016-12-19 11:33 | NUR ---
@0800-PT AROUS-OPENS EYES TO VERBAL STIM/TACTILE STIM. NOT FOLLOWING COMMANDS. BECOMES RESTLESS WITH MOUTH CARE. BILAT WRISTS RESTRAINTS REMAIN IN PLACE FOR SAFETY OF ETT. FENT GTT CONT AT 100MCG. SAS 3. TEMP 98.6 THIS AM. CONT ON VENT-NO CHANGE TO SETTINGS, O2SAT 94%. THICK YELLOW/WHITE SECRETIONS NOTED IN ETT. MIN ORAL SECRECTIONS NOTED. HEALING SORE TO R LIP NOTED FROM PREV ETT SIDE. CXR DONE AT THIS TIME. NEBS Q4HR. RHONCHI AUSCULATED. NSR HR 70-90S. BP STABLE. NGT REMAINS TO R NARES-TO LWS WITH DARK GREEN DRAINAGE NOTED IN ADEQUATE AMTS. ABD DISTENDED/FIRM WITH +BS NOTED. COLOSTOMY INTACT WITH LARGE PINK STOMA AND SUH/MUCUS SECRETIONS NOTED IN OSTOMY BAG-APPLIANCE CHANGED OVERNIGHT. ANN IN PLACE WITH ORANGE CLEAR URINE IN ADEQUATE AMTS-RECIEVED IV LASIX 12/18/16. MIDLINE ABD SURG STAPLE INCISION REDDENED, NOTED TO DRAIN SS FROM PROXIMAL END OF INCISION. DSG CHANGED THIS AM BY NIGHT RN. EDEMA IMPROVED TO BUE. +2/+3 EDEMA CONT TO SCROTAL/PENIS AND BLE. +PULSES NOTED. TPN AND LIPIDS CONT TO INFUSE. TO RECIEVE IV MEROPENUM AND IV DIFLUCAN WITH AM MEDS. H/H 82, 23.9(8.6, 25 ON 12/18/16.) FAMILY AT BEDSIDE AND UPDATED. CONT TO MONITOR CLOSELY.
--- NOTE | 2016-12-19 12:03 | PN- General Surgery ---
Surgical Brief Attending Note Brief Attending Note: Improved fever curve. continues to respond to daily lasix with obvious decrease in total body water over past two days. Recommend another dose today and follow response.
--- NOTE | 2016-12-19 12:42 | NUR ---
@1200-TEMP 100.5. DR VELAZQUEZ AT BEDSIDE FOR ASSESS. MEDICATED WITH 1X IV LASIX 40MG. CONT TO MONITOR.
--- NOTE | 2016-12-19 14:44 | NUR ---
@1430-TEMP 102.5-COOLING BLANKET IN PLACE SINCE PT TEMP 101.1 AT 1300 WITH COOL WASHCLOTH. FEBRILE STATE REPORTED TO HOUSESTAFF. PER DR VELAZQUEZ THIS AM, IF SPIKES TEMP ADMINISTER LIQ TYLENOL THROUGH NGT-ORDER OBTAINED FROM HOUSESTAFF AND 640MG SUSPENSION ADMINISTERED THROUGH NGT AND SUCTION PLACED ON HOLD. PT ALSO MEDICATED WITH PRN ATIVAN FOR INCREASED RESTLESSNESS, HYPERTENSIVE, TACHYPNEIC. FAMILY AT BEDSIDE AND UPDATED.
[2016-12-19 16:00] VITALS: BP 114/60
[2016-12-20] VITALS: BP 124/73
[2016-12-20 05:02] LABS: ABSOLUTE BASOPHIL COUNT 0 /CUMM (0.0-0.2); ABSOLUTE EOSINOPHIL COUNT 0.1 /CUMM (0.0-0.7); ABSOLUTE GRANULOCYTE CT 11.5 /CUMM (1.4-6.5); ABSOLUTE LYMPH COUNT 1.7 /CUMM (1.2-3.4); ABSOLUTE MONOCYTE COUNT 0.8 /CUMM (0.10-0.60); BASOPHIL % 0.3 % (0.0-2.0); EOSINOPHIL % 0.8 % (0-5); GRANULOCYTE % 81.3 % (42.2-75.2); HEMATOCRIT 23.9 % (42-52); MEAN CORPUSCULAR HGB CONC 34.1 G/DL (33.0-37.0); MEAN PLATELET VOLUME 9.1 FL (7.4-10.4); PLATELET COUNT 486 /CUMM (130-400); RBC DISTRIBUTION WIDTH 15.1 % (11.5-14.5); RED BLOOD CELL CT 2.91 /CUMM (4.70-6.10); WHITE BLOOD CELL COUNT 14.2 /CUMM (4.8-10.8)
--- NOTE | 2016-12-20 05:34 | PN- General Surgery ---
See Addendum Subjective Subjective: NAEO. Patient remains in critical condition, intubated, on abx. Objective Vital Signs and I&Os Vital Signs Date Time Temp Pulse Resp B/P Pulse O2 O2 Flow FiO2 Ox Delivery Rate 12/20 0334 30 12/20 0111 30 12/20 0057 100.5 12/20 0000 101.4 91 20 124/73 95 Ventilator 30% 12/20 0000 95 Ventilator 30% 12/19 2358 101.4 12/19 2213 30 12/19 2000 100 Ventilator 30% 12/19 1700 30 12/19 1615 30 12/19 1600 101.3 74 19 114/60 95 Ventilator 30% 12/19 1600 94 Ventilator 30% 12/19 1547 101.8 12/19 1437 102.3 12/19 1328 30 12/19 1200 96 Ventilator 30% 12/19 1126 30 12/19 0804 30 12/19 0800 98.6 88 19 108/60 97 Ventilator 30% 12/19 0800 97 Ventilator 30% 12/19 0607 30 Intake & Output 12/20 0800 12/20 0000 12/19 1600 12/19 0800 12/19 0000 12/18 1600 Intake Total 971.0 1275 934.0 1020.0 1250.0 Output Total 1440 1401 668 8195 690 Balance -469.0 -155 384.0 -1331.0 560.0 Intake, IV 239 1235 209 288 560 Intake, Lipid 130.0 132.0 166.0 124.0 Intake, Oral 0 Intake, Other 40 Intake, 602 593 566 566 TPN/PPN Output, 200 200 50 200 150 Gastric Drainage Output, Stool 40 30 0 1 40 Output, Urine 1200 0380 504 9426 500 Patient 221 lb 227 lb Weight Physical Exam: General: intubated, opens eyes Chest: Good air movement on ventilator. RRR. Abdomen: soft, nondistended. Stoma pink and viable. Small amount of brown mucous output. Ext: No calve swelling Current Medications: Current Medications Sig/Ar Start time Last Medication Dose Route Stop Time Status Admin Acetaminophen 640 MG Q4-6 PRN PRN 12/19 1430 AC 12/19 PO 2358 Acetaminophen 650 MG Q6P PRN 12/16 1830 DC ME Albuterol Sulfate 3 ML EVERY 4 HRS/AWAKE 12/06 1600 AC 12/19 INH 203 Fat Emulsion 375 ML 1900 12/19 1900 AC 12/19 Intravenous IV 12/20 185 193 Fat Emulsion 375 ML Q24H 12/18 1900 DC 12/18 Intravenous IV 12/19 Fentanyl Citrate 1,000 MCG Q8H 12/16 1700 AC 12/19 Sodium Chloride 250 ML IV 1957 Fluconazole 400 MG DAILY 12/18 1000 AC 12/19 Sodium Chloride 200 ML IV 1006 Fluconazole 200 MG DAILY 12/18 1000 AC 12/19 Sodium Chloride 100 ML IV 1006 Furosemide 40 MG ONCE ONE 12/19 1215 DC 12/19 IV 12/19 1216 1243 Heparin Sodium 5,000 UNIT Q8 12/02 2200 AC 12/19 (Porcine) SC 2240 Ipratropium Antelope 2.5 ML EVERY 4 HRS/AWAKE 12/06 1600 AC 12/19 INH 2031 Lorazepam 1 MG Q4P PRN 12/13 1715 AC 12/20 IV 0111 Meropenem 1 GM Q8H 12/15 1000 AC 12/20 IV 0116 Ondansetron HCl 4 MG Q6P PRN 12/02 1800 AC IV Pantoprazole Sodium 40 MG DAILY 12/02 2200 AC 12/19 IV 1006 Petrolatum 1 CECY DAILY NEEDED PRN 12/11 2215 AC 12/17 OPH 1600 Total Parenteral 1 UNIT ONE 12/19 190 AC 12/19 Nutrition IV 12/20 Total Parenteral 1 UNIT ONE 12/18 1900 DC 12/18 Nutrition IV 12/19 Results Last 48 Hours of Labs: Laboratory Tests 12/20 12/19 0435 0455 Chemistry Sodium (137 - 145 mmol/L) 139 138 Potassium (3.5 - 5.1 mmol/L) 3.9 3.8 Chloride (98 - 107 mmol/L) 99 98 Carbon Dioxide (22 - 30 mmol/L) 32 H 32 H Anion Gap (5 - 16) 8 7 BUN (9 - 20 mg/dL) 25 H 25 H Creatinine (0.7 - 1.2 mg/dL) 0.8 0.7 Estimated GFR (>60 ml/min) > 60 > 60 Glucose (65 - 99 mg/dL) 148 H 163 H Calcium (8.4 - 10.2 mg/dL) 7.5 L 7.4 L Phosphorus (2.5 - 4.5 mg/dL) 4.5 4.6 H Magnesium (1.6 - 2.3 mg/dL) 1.8 1.8 Total Bilirubin (0.2 - 1.3 mg/dL) 3.4 H 2.4 H AST (17 - 59 U/L) 47 39 ALT (21 - 72 U/L) 31 29 Albumin (3.5 - 5.0 g/dL) 1.9 L 2.0 L Hematology CBC w Diff NO MAN DIFF REQ NO MAN DIFF REQ WBC (4.8 - 10.8 /CUMM) 14.2 H 15.7 H RBC (4.70 - 6.10 /CUMM) 2.91 L 2.90 L Hgb (14.0 - 18.0 G/DL) 8.1 L 8.2 L Hct (42 - 52 %) 23.9 L 23.9 L MCV (80.0 - 94.0 FL) 82.0 82.3 MCH (27.0 - 31.0 PG) 28.0 28.3 RDW (11.5 - 14.5 %) 15.1 H 15.5 H Plt Count (130 - 400 /CUMM) 486 H 546 H MPV (7.4 - 10.4 FL) 9.1 9.2 Gran % (42.2 - 75.2 %) 81.3 H 82.6 H Lymphocytes % (20.5 - 51.1 %) 12.2 L 9.9 L Monocytes % (1.7 - 9.3 %) 5.4 5.9 Eosinophils % (0 - 5 %) 0.8 0.6 Basophils % (0.0 - 2.0 %) 0.3 1.0 Absolute Granulocytes (1.4 - 6.5 /CUMM) 11.5 H 12.9 H Absolute Lymphocytes (1.2 - 3.4 /CUMM) 1.7 1.6 Absolute Monocytes (0.10 - 0.60 /CUMM) 0.8 H 0.9 H Absolute Eosinophils (0.0 - 0.7 /CUMM) 0.1 0.1 Absolute Basophils (0.0 - 0.2 /CUMM) 0 0.2 PUBS MCHC (33.0 - 37.0 G/DL) 34.1 34.3 Assessment/Plan Assessment/Plan 89yo M s/p exploratory laparotomy with Kirkland's procedure and subsequent reexploration and washout of the abdomen. Afebrilel. Plan: -Keep nothing by mouth with NG tube. -Continue TPN for nutritional support. -Continue abx -Continue frequent dressing changes. -GI and DVT prophylaxis. -Pain control and sedation. -Medical management per critical care team. -Will discuss with attending. Core Measures/Miscellaneous Edward Catheter Date In: 12/02/16 Venous Thromboembolism VTE Risk Factors: Acute medical illness, Age > 40, Surgery VTE Contraindications: No Contraindications VTE Prophylaxis Ordered Inpt Mech & Pharm VTE Diagnosis: No Beta Abelardo Is Beta Abelardo a Home Med? No Antibiotics Is Patient on Antibiotics? Yes If Yes: infection
--- NOTE | 2016-12-20 07:28 | PN- Resident CRCU ---
Subjective HPI/CRCU Issues: Patient was seen and examined. Patient is arousable to verbal and tactile stimulation. He is unable to provide any review of systems. Objective Vital Signs & I&O Last 8 Hrs of Vitals and I&O: * MAXIMUM TEMPERATURE 102.3 * Heartrate 92-74 * Blood pressure was running 120s 130s over 70s, except at 2 AM where it was 83/ 48. * Intake 3104 and output 3400 (-296cc) * (since admission total intake is 59 L and total output is 42 L) Exam General Appearance: sedated, intubated Head: atraumatic, normal appearance Respiratory: normal breath sounds, no respiratory distress, lungs clear Cardiovascular: regular rate/rhythm Gastrointestinal: Distended, tens, with surgical incision with clips in place. the erythema around the surgical incision improved and not warm. Extremities: b/l LE edema Weaning Parameters NIF: 42 Minute Volume: 13 Resp rate: 24 Vt: 520 Heart Rate: 107 Weaning Schedule Start Time: 0940 Minute Volume: 13 Resp Rate: 24 Vt: 520 Heart Rate: 107 Current Medications: Current Medications Sig/Ar Start time Last Medication Dose Route Stop Time Status Admin Acetaminophen 640 MG Q4-6 PRN PRN 12/19 1430 AC 12/19 PO 2358 Acetaminophen 650 MG Q6P PRN 12/16 1830 DC GA Albuterol Sulfate 3 ML EVERY 4 HRS/AWAKE 12/06 1600 AC 12/20 INH 0748 Fat Emulsion 375 ML 1900 12/19 1900 AC 12/19 Intravenous IV 12/20 1859 1930 Fat Emulsion 375 ML Q24H 12/18 1900 DC 12/18 Intravenous IV 12/19 1859 1943 Fentanyl Citrate 1,000 MCG Q8H 12/16 1700 AC 12/20 Sodium Chloride 250 ML IV 0911 Fluconazole 400 MG DAILY 12/18 1000 AC 12/20 Sodium Chloride 200 ML IV 0906 Fluconazole 200 MG DAILY 12/18 1000 AC 12/19 Sodium Chloride 100 ML IV 1006 Furosemide 40 MG ONCE ONE 12/20 1630 UNVr IV 12/20 1631 Furosemide 40 MG DAILY 12/20 1000 UNVr IV Furosemide 40 MG ONCE ONE 12/19 1215 DC 12/19 IV 12/19 1216 1243 Heparin Sodium 300 UNIT ONCE ONE 12/20 0830 DC 12/20 (Porcine) IV 12/20 0831 0822 Heparin Sodium 5,000 UNIT Q8 12/02 2200 AC 12/20 (Porcine) SC 0700 Ipratropium Tennyson 2.5 ML EVERY 4 HRS/AWAKE 12/06 1600 AC 12/20 INH 0748 Lorazepam 1 MG Q4P PRN 12/13 1715 AC 12/20 IV 0859 Meropenem 1 GM Q8H 12/15 1000 AC 12/20 IV 0906 Ondansetron HCl 4 MG Q6P PRN 12/02 1800 AC IV Pantoprazole Sodium 40 MG DAILY 12/02 2200 AC 12/20 IV 0906 Petrolatum 1 CECY DAILY NEEDED PRN 12/11 2215 AC 12/17 OPH 1600 Potassium Chloride 20 MEQ Q1H 12/20 0930 UNVr IV 12/20 1031 Total Parenteral 1 UNIT ONE 12/19 1900 AC 12/19 Nutrition IV 12/20 185 1930 Total Parenteral 1 UNIT ONE 12/18 1900 DC 12/18 Nutrition IV 12/19 185 194 Impression/Plan Impression/Problem List Impression: 89/M with PMH of asthma, HTN, bilateral inguinal hernia s/p repair 30 years ago presented to [facility] on 12/12/15 c/o acute abdominal pain. He was found to have acute perforation of sigmoid colon complicated by peritonitis. He underwent emergent surgery with Henny's procedure. He was subsequently sent to ICU for hemodynamic stabilization, further care as patient is at high risk for infection/respiratory failure post extubation. Today he is still intubated, ventilated, slightly arousable, and spiking fevers. Plan Respiratory: #Respiratory failure. Patient has history of COPD. * On fentanyl drip * Intubated and mechanically ventilated. His ventilation sittings are tidal volume to 500 and respiratory rate of 16. Infectious Diseases: #Recurrent Fever explaratory laparotomy. Post op day #18 Underwent repeat drainage during ICU stay, initially JPs was placed, but the last one was removed yesterday 10 am. OR cultures are sent and positive for Gram postive cocci and gram negative rods. * He is still febrile with Tmax of 102.3 yesterday. WBCs went down to 14.2 today from 15.7 yesterday. * we'll cont' IV meropenem Q8 1gm based on culture and sensitivity. * Continue Fluconazol 600 daily. * C. difficile result is negative * We will continue liq acetaminophen and cooling blankets. Cardiovascular: #New onset A. fib postoperativey (resolved). Patient developed A. fib post operative, most likely patient was on stress because of sepsis. He was started on amiodarone drip, patient then converted back to normal sinus rhythm after which a major on trip was discontinued. Currently he is maintaining normal sinus rhythm #New onset bilateral lower extremity edema. Bilateral lower extremity Doppler was done to exclude DVTs as a possible explanation. Results came back negative for DVTs. * we'll keep negative balance #Right Cephalic vein thrombosis Patient was found to have superficial thrombosis in right cephalic vein. He had a peripheral line in that region at the time of surgery. This thrombosis is a superficial and most likely will not lead to any DVTs. * Warm compressors without any anticoagulation for now. Hematology: Patient H&H is down to 8.1 and 23.9 comparing to yesterday which was 8.2 and 23.9, white blood cell is down to 14.2 today * We'll repeat CBC tomorrow Metabolic: #JUANA (Resolved) Today creatinine is 0.8 At some point during this admission patient's creatinine went up to 1.6. #Fluid balance * Patient last input output were Intake 3104 and output 3400 (-296cc) * since admission total intake is 59 L and total output is 42 L * We will monitor his fluid balance. * We will give Lasix 40 mg once as a try to keep him negative balance. Every day we will assess and give Lasix according. * Patient potassium was 3.9 down from 4.6. To avoid hypokalemia that can be induced by Lasix we will get patient potassium today. Alimentary: * NPO with NG decompression * TPN - day 12. * we'll cont' GI prophylaxis. * Colostomy bag in place with active drainage * Bowel sounds present, doing well now * Surgery is on board we will follow their recommendation. Neurological: Patient is sedated and intubated Patient is arousable to tactile stimulus. Endocrinology No endocrinology issue at the time SKI No current skin issues Diet patient is nothing by mouth * We'll continue TPN DVT/Prophylaxis: sc lovenox Code Status: Full Code Problem List: 1. Peritonitis Pain Ratin Tomorrow's Labs & Rationales: cbc, icu bundle, inr, xray Plan DVT/Prophylaxis: sc lovenox Code Status: Full Code
[2016-12-20 08:00] VITALS: BP 126/80
--- NOTE | 2016-12-20 08:29 | RADIOLOGY REPORT ---
EXAMINATION: XR PORTABLE CHEST CLINICAL INFORMATION: Intubation. COMPARISON: Several prior chest x-rays, most recent of which is dated 12/19/2016. TECHNIQUE: AP semierect portable view of the chest was obtained. FINDINGS: Endotracheal tube tip 3.8 cm above the fernando. Enteric tube seen coursing into the abdomen but tip not included. Left subclavian PICC line in place with tip poorly visualized, but presumably in the mid SVC. Cardiomediastinal silhouette within normal limits in size. Calcification of the aorta is seen. Central vascular congestion and streaky perihilar opacities are seen, consistent with mild pulmonary edema. No significant pleural effusion or pneumothorax is seen. Osteopenia is noted. IMPRESSION: 1. Endotracheal tube tip 2.8 cm above the fernando. 2. Enteric tube extends into the abdomen with tip not included. 3. Left subclavian PICC line suboptimally visualized but presumably in the mid SVC. 4. Interval development of mild pulmonary edema.
--- NOTE | 2016-12-20 09:30 | PN- CRCU ---
Subjective HPI/Critical Care Issues: Patient seen and examined. Chart reviewed. The patient is status post repeat laparotomy for drainage of intraperitoneal abscess. The patient remains in critical condition, intubated, on fluconazole and meropenem, and intermittently spiking temperatures. He remains on a fentanyl drip with an SAS of 3. He is on TPN and lipids for nutrition. The patient remains nothing by mouth. His oxygen requirement is stable at 30%. Objective Current Medications: Current Medications Sig/Ar Start time Last Medication Dose Route Stop Time Status Admin Acetaminophen 640 MG Q4-6 PRN PRN 12/19 1430 AC 12/19 PO 2358 Acetaminophen 650 MG Q6P PRN 12/16 1830 DC DE Albuterol Sulfate 3 ML EVERY 4 HRS/AWAKE 12/06 1600 AC 12/20 INH 0748 Fat Emulsion 375 ML 1900 12/19 1900 AC 12/19 Intravenous IV 12/20 185 1930 Fat Emulsion 375 ML Q24H 12/18 1900 DC 12/18 Intravenous IV 12/19 185 1943 Fentanyl Citrate 1,000 MCG Q8H 12/16 1700 AC 12/19 Sodium Chloride 250 ML IV 1957 Fluconazole 400 MG DAILY 12/18 1000 AC 12/19 Sodium Chloride 200 ML IV 1006 Fluconazole 200 MG DAILY 12/18 1000 AC 12/19 Sodium Chloride 100 ML IV 1006 Furosemide 40 MG ONCE ONE 12/19 1215 DC 12/19 IV 12/19 1216 1243 Heparin Sodium 5,000 UNIT Q8 12/02 2200 AC 12/20 (Porcine) SC 0700 Ipratropium [place] 2.5 ML EVERY 4 HRS/AWAKE 12/06 1600 12/20 INH 0748 Lorazepam 1 MG Q4P PRN 12/13 1715 12/20 IV 0111 Meropenem 1 GM Q8H 12/15 1000 AC 12/20 IV 0116 Ondansetron HCl 4 MG Q6P PRN 12/02 1800 AC IV Pantoprazole Sodium 40 MG DAILY 12/02 2200 AC 12/19 IV 1006 Petrolatum 1 CECY DAILY NEEDED PRN 12/11 2215 AC 12/17 OPH 1600 Total Parenteral 1 UNIT ONE 12/19 1900 AC 12/19 Nutrition IV 12/20 1859 1930 Total Parenteral 1 UNIT ONE 12/18 1900 DC 12/18 Nutrition IV 12/19 185 1943 Vital Signs & I&O Last 24 Hrs of Vitals and I&O: Vital Signs Date Time Temp Pulse Resp B/P Pulse O2 O2 Flow FiO2 Ox Delivery Rate 12/20 0756 30 12/20 0609 30 12/20 0400 95 Ventilator 30% 12/20 0334 30 12/20 0111 30 12/20 0057 100.5 12/20 0000 101.4 91 20 124/73 95 Ventilator 30% 12/20 0000 95 Ventilator 30% 12/19 2358 101.4 12/19 2213 30 12/19 2000 100 Ventilator 30% 12/19 1700 30 12/19 1615 30 12/19 1600 101.3 74 19 114/60 95 Ventilator 30% 12/19 1600 94 Ventilator 30% 12/19 1547 101.8 12/19 1437 102.3 12/19 1328 30 12/19 1200 96 Ventilator 30% 12/19 1126 30 Intake & Output 12/20 1600 12/20 0800 12/20 0000 Intake Total 798.0 971.0 Output Total 530 1440 Balance 268.0 -469.0 Intake, IV 182 239 Intake, Lipid 114.0 130.0 Intake, 502 602 TPN/PPN Output, 100 200 Gastric Drainage Output, Stool 30 40 Output, Urine 400 1200 Exam General Appearance: sedated, intubated Head: atraumatic, normal appearance Neck: supple Respiratory: scattered bilateral rhonchi, the lungs expand symmetrically and the trachea is midline Cardiovascular: regular rate/rhythm (no murmur) Abdomen: distended with a clean incision, no erythema or drainage, colostomy has a small amount of liquid output Extremities: 1+ pitting edema Skin: intact, warm/dry Results Last 24 Hrs of Lab Results: Laboratory Tests 12/20/16 0435: Anion Gap 8, Estimated GFR > 60, Glucose 148 H, Calcium 7.5 L, Phosphorus 4.5, Magnesium 1.8, Total Bilirubin 3.4 H, AST 47, ALT 31, Albumin 1.9 L, CBC w Diff NO MAN DIFF REQ, RBC 2.91 L, MCV 82.0, MCH 28.0, RDW 15.1 H, MPV 9.1, Gran % 81.3 H, Lymphocytes % 12.2 L, Monocytes % 5.4, Eosinophils % 0.8, Basophils % 0.3, Absolute Granulocytes 11.5 H, Absolute Lymphocytes 1.7, Absolute Monocytes 0.8 H, Absolute Eosinophils 0.1, Absolute Basophils 0, PUBS MCHC 34.1 Diagnostic Data CXR Findings: 1. There is mild cardiomegaly and pulmonary vascular congestion. No overt pulmonary edema is seen. 2. There is persistent mild left base atelectasis versus infiltrate. 3. Endotracheal tube tip position as above. Impression/Plan Impression/Plan Impression/Plan: 1. S/P exploratory laparotomy and Hartmans procedure, s/p repeat abdominal washout. The patient has persistent fevers although the trend in general has improved. He remains on meropenem and Diflucan for coverage of his or cultures. 2. Respiratory failure with bilateral pleural effusions, likely secondary to volume overload as opposed to empyema. 3. 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 4. Malnutrition. 5. Superficial cephalic vein thrombosis, no DVT. 6. Anemia without bleeding. Recommendations: * Continue meropenem and Diflucan as per ID. * Continue current ventilator settings. * TRC/nebs. * Monitor daily CXRs. * Please order Multi-Podus boots to be placed to avoid foot drop. * Cooling blanket as necessary. * Continue TPN. Will begin enteral nutrition when cleared by surgery. * Fentanyl drip to be weaned as tolerated. * Lasix 40 mg IV BID. * Continue DVT and GI prophylaxis. * Continue all supportive care. Code Status: Full Code
--- NOTE | 2016-12-20 14:18 | PN- Infect Dx ---
Subjective Subjective: MAXIMUM TEMPERATURE 102.3. Objective Last 24 Hrs of Vital Signs/I&O Vital Signs Date Time Temp Pulse Resp B/P Pulse O2 O2 Flow FiO2 Ox Delivery Rate 12/20 1409 30 12/20 1356 101.0 12/20 1134 30 12/20 0800 94 Ventilator 30% 12/20 0800 100.9 88 18 126/80 94 Ventilator 30% 12/20 0756 30 12/20 0609 30 12/20 0400 95 Ventilator 30% 12/20 0334 30 12/20 0111 30 12/20 0057 100.5 12/20 0000 101.4 91 20 124/73 95 Ventilator 30% 12/20 0000 95 Ventilator 30% 12/19 2358 101.4 12/19 2213 30 12/19 2000 100 Ventilator 30% 12/19 1700 30 12/19 1615 30 12/19 1600 101.3 74 19 114/60 95 Ventilator 30% 12/19 1600 94 Ventilator 30% 12/19 1547 101.8 12/19 1437 102.3 Intake & Output 12/20 1600 12/20 0800 12/20 0000 Intake Total 798.0 971.0 Output Total 530 1440 Balance 268.0 -469.0 Intake, IV 182 239 Intake, Lipid 114.0 130.0 Intake, 502 602 TPN/PPN Output, 100 200 Gastric Drainage Output, Stool 30 40 Output, Urine 400 1200 Physical Exam Other Physical Findings: He remains sedated, on the ventilator, responsive to pain only Lungs are clear Heart regular rhythm with no murmur Abdomen is distended, incision is clean, with no erythema or drainage; brown stool in the colostomy Extremities 1+ edema both lower extremities; PICC in the left upper extremity with no inflammation at the site Edward catheter remains in place Results Last 24 Hours of Lab Results: Laboratory Tests 12/20 0435 Chemistry Sodium (137 - 145 mmol/L) 139 Potassium (3.5 - 5.1 mmol/L) 3.9 Chloride (98 - 107 mmol/L) 99 Carbon Dioxide (22 - 30 mmol/L) 32 H Anion Gap (5 - 16) 8 BUN (9 - 20 mg/dL) 25 H Creatinine (0.7 - 1.2 mg/dL) 0.8 Estimated GFR (>60 ml/min) > 60 Glucose (65 - 99 mg/dL) 148 H Calcium (8.4 - 10.2 mg/dL) 7.5 L Phosphorus (2.5 - 4.5 mg/dL) 4.5 Magnesium (1.6 - 2.3 mg/dL) 1.8 Total Bilirubin (0.2 - 1.3 mg/dL) 3.4 H AST (17 - 59 U/L) 47 ALT (21 - 72 U/L) 31 Albumin (3.5 - 5.0 g/dL) 1.9 L Hematology CBC w Diff NO MAN DIFF REQ WBC (4.8 - 10.8 /CUMM) 14.2 H RBC (4.70 - 6.10 /CUMM) 2.91 L Hgb (14.0 - 18.0 G/DL) 8.1 L Hct (42 - 52 %) 23.9 L MCV (80.0 - 94.0 FL) 82.0 MCH (27.0 - 31.0 PG) 28.0 RDW (11.5 - 14.5 %) 15.1 H Plt Count (130 - 400 /CUMM) 486 H MPV (7.4 - 10.4 FL) 9.1 Gran % (42.2 - 75.2 %) 81.3 H Lymphocytes % (20.5 - 51.1 %) 12.2 L Monocytes % (1.7 - 9.3 %) 5.4 Eosinophils % (0 - 5 %) 0.8 Basophils % (0.0 - 2.0 %) 0.3 Absolute Granulocytes (1.4 - 6.5 /CUMM) 11.5 H Absolute Lymphocytes (1.2 - 3.4 /CUMM) 1.7 Absolute Monocytes (0.10 - 0.60 /CUMM) 0.8 H Absolute Eosinophils (0.0 - 0.7 /CUMM) 0.1 Absolute Basophils (0.0 - 0.2 /CUMM) 0 PUBS MCHC (33.0 - 37.0 G/DL) 34.1 Last 24 Hours of Adrian Results: Blood cultures 2 December 17 remain negative Recent Imaging Studies: Chest x-ray December 20, personally reviewed, reveals interval development of mild pulmonary edema Assessment/Plan Impression: Fevers persist though white blood cell count appears to be decreasing now 8 days status post repeat laparotomy for drainage of intraperitoneal abscesses and 18 days status post his initial Kirkland's procedure for peritonitis secondary to a perforated viscus. He remains on Meropenem and Fluconazole, which should adequately cover the organisms isolated from the recent OR culture, with the recent CT scan negative for any drainable collection. The CT scan did demonstrate bilateral pleural effusions, which most likely represent fluid overload, given his chest x-ray findings from today, but they could represent potential foci of infection and further evaluation may be necessary if his fevers and/or leukocytosis persist. Suggestion: 1. Further diuresis per Medicine/ICU team 2. Consider thoracentesis if fevers/leukocytosis persists 3. Continue Meropenem and Fluconazole
[2016-12-20 16:00] VITALS: BP 110/82
--- NOTE | 2016-12-20 21:45 | NUR ---
PT SEDATED ON FENTANYL GTT AT 87.5MCG/HR-OPENS EYES TO VERBAL STIMULI, FOCUSING AT TIMES, NOT FOLLOWING COMMANDS AT PRESENT. ORALLY INTUBATED AND VENTED. RHONCI THOUGHOUT BILATEARLLY. SUCTIONING FOR MOD AMT OF THIN WHITE SECREATIONS. SEE FLOW SHEET FOR VS, 02 SATS, I/O'S. MONITOR SHOWS NSR, NO ECTOPY NOTED AT PRESENT. BP STABLE AT PRESENT. ABD FIRM, LARGE, DISTENDED, HYPOACTIVE BOWEL SOUNDS. COLOSTOMY IN PLACE-STOMA PINK, DRAINING LIQUID BROWN STOOL. MIDLINE ABD INCISION WITH COURTNEY-SLIGHTLY RED, LOWER INCISION DRAINING SEROUS DRAINAGE-DRESSING CHANGED. ANN IN PLACE-DRAINING ADEQUATE AMT OF CLEAR JUJU URINE. SKIN INTACT. NGT TO LWS-DRAINING GREEN BILIOUS DRAINAGE-PLACEMENT CONFIRMED BY AIR
[2016-12-21] VITALS: BP 99/55
[2016-12-21 05:11] LABS: ABSOLUTE BASOPHIL COUNT 0.1 /CUMM (0.0-0.2); ABSOLUTE EOSINOPHIL COUNT 0.1 /CUMM (0.0-0.7); ABSOLUTE GRANULOCYTE CT 14.9 /CUMM (1.4-6.5); ABSOLUTE LYMPH COUNT 2.1 /CUMM (1.2-3.4); ABSOLUTE MONOCYTE COUNT 1.3 /CUMM (0.10-0.60); BASOPHIL % 0.5 % (0.0-2.0); EOSINOPHIL % 0.6 % (0-5); GRANULOCYTE % 80.8 % (42.2-75.2); MEAN CORPUSCULAR HGB 28.4 PG (27.0-31.0); MEAN CORPUSCULAR HGB CONC 34.3 G/DL (33.0-37.0); MEAN CORPUSCULAR VOLUME 82.7 FL (80.0-94.0); MEAN PLATELET VOLUME 9.1 FL (7.4-10.4); PLATELET COUNT 519 /CUMM (130-400); RED BLOOD CELL CT 2.78 /CUMM (4.70-6.10); WHITE BLOOD CELL COUNT 18.4 /CUMM (4.8-10.8)
[2016-12-21 05:13] LABS: PT 15.2 SEC (9.4-12.5)
--- NOTE | 2016-12-21 05:53 | PN- General Surgery ---
Subjective Subjective: intubated, sedated remains febrile on abx worsening leukocytosis Objective Vital Signs and I&Os Vital Signs Date Time Temp Pulse Resp B/P Pulse O2 O2 Flow FiO2 Ox Delivery Rate 12/21 0408 101.1 12/21 0400 94 Ventilator 30% 12/21 0300 30 12/21 0030 30 12/21 0000 92 Ventilator 30% 12/21 0000 100.8 87 24 99/55 92 Ventilator 30% 12/20 2243 30 12/20 2139 100.4 12/20 2040 101.0 12/20 2000 97 Ventilator 30% 12/20 1950 30 12/20 1754 Ventilator 40% 12/20 1610 30 12/20 1600 101.4 88 16 110/82 93 Ventilator 30% 12/20 1600 94 Ventilator 30% 12/20 1455 100.5 12/20 1409 30 12/20 1356 101.0 12/20 1200 95 Ventilator 30% 12/20 1134 30 12/20 0800 94 Ventilator 30% 12/20 0800 100.9 88 18 126/80 94 Ventilator 30% 12/20 0756 30 12/20 0609 30 Intake & Output 12/21 0800 12/21 0000 12/20 1600 12/20 0800 12/20 0000 12/19 1600 Intake Total 836.0 1584.0 798.0 971.0 1275 Output Total 1790 2980 530 1440 1430 Balance -954.0 -1396.0 268.0 -469.0 -155 Intake, IV 165 782 840 479 0115 Intake, Lipid 121.0 130.0 114.0 130.0 Intake, Other 80 40 Intake, 550 592 502 602 TPN/PPN Output, 100 250 100 200 200 Gastric Drainage Output, Stool 30 30 30 40 30 Output, Urine 1660 2700 400 1200 1200 Patient 221 lb Weight Physical Exam: General: intubated, opens eyes Chest: Good air movement on ventilator. RRR. Abdomen: softly distended. Stoma pink and viable. brown liquid stool jin ostomy mucopurulent drainage from wound inferiorly. Ext: No calve swelling Assessment/Plan Assessment/Plan remains guarded plan cont current icu protolcol plan for trach today Core Measures/Miscellaneous Edward Catheter Date In: 12/02/16 Venous Thromboembolism VTE Risk Factors: Acute medical illness, Age > 40, Surgery VTE Contraindications: No Contraindications VTE Prophylaxis Ordered Inpt Mech & Pharm VTE Diagnosis: No Beta Abelardo Is Beta Abelardo a Home Med? No Antibiotics Is Patient on Antibiotics? Yes If Yes: infection
--- NOTE | 2016-12-21 06:05 | RADIOLOGY REPORT ---
EXAMINATION: XR PORTABLE CHEST CLINICAL INFORMATION: Intubated. COMPARISON: Chest x-ray 12/20/2015. TECHNIQUE: Portable view of the chest was obtained. FINDINGS: Endotracheal tube tip remains in unchanged position, 3.8 cm above the fernando. Enteric tube courses below the diaphragm with its tip beyond the limits of this study. Left subclavian PICC line tip projects over the SVC. Cardiac silhouette size is normal. There is central vascular congestion with slightly worsening mild to moderate interstitial pulmonary edema. Increasing retrocardiac/left basilar airspace opacity. No pleural effusions and no pneumothoraces. Osseous structures stable. IMPRESSION: - Endotracheal tube tip remains in unchanged position, 3.8 cm above the fernando. Additional tubes and lines as described. - Slightly worsening mild to moderate interstitial pulmonary edema. Increasing retrocardiac/left basilar airspace opacity. No pleural effusions.
--- NOTE | 2016-12-21 06:49 | NUR ---
PT REMAINS ON FENTANYL GTT AT 87.5MCG/HR-SAS-3-4 FOR SHIFT. PT WITH PERIODS OF AGITATION-ATIVAN IV GIVEN TWICE OVERNIGHT-SEE EMAR. REMAINS ORALLY INTUBATED AND VENTED. RHONCI THOUGHOUT BILATERALLLY. SUCTIONING FOR MOD AMT OF THIN WHITE SECREATIONS. 02 SATS 92-96% FOR SHIFT. MONITOR NSR, NO ECTOPY NOTED THOUGHOUT SHIFT, HR-85-101. SBP-95-136. ABD REMAINS FIRM AND DISTENDED, HYPOACTIVE BOWEL SOUNDS, COLOSTOMY STOMA PINK, DRAINING LIQUID BROWN STOOL, PASSING FLATUS. LOWER ABD INCISION WITH MUCOPURLENT SEROUS DRAINAGE-DRESSING CHANGED TWICE DURING SHIFT. NGT DRAINING GREEN BILIOUS DRAINAGE. SKIN INTACT. TYLENOL PO NGT GIVEN TWICE DURING SHIFT FOR ELEVATED TEMP-SEE EMAR. TEMP RANGE 99.7-101.4. ICE PACKS TO GROINS, ARMPITS AND BACK OF NECK
--- NOTE | 2016-12-21 07:29 | PN- Resident CRCU ---
Subjective HPI/CRCU Issues: Patient was seen and examined. Patient is arousable to verbal and tactile stimulation. He is unable to provide any review of systems. Objective Vital Signs & I&O Last 8 Hrs of Vitals and I&O: Vital Signs Date Time Temp Pulse Resp B/P Pulse O2 O2 Flow FiO2 Ox Delivery Rate 12/21 0827 30 12/21 0800 100.6 79 21 106/64 97 Ventilator 30% 12/21 0800 100 Ventilator 30% 12/21 0553 30 12/21 0500 99.7 12/21 0408 101.1 12/21 0400 94 Ventilator 30% 12/21 0300 30 12/21 0030 30 12/21 0000 92 Ventilator 30% 12/21 0000 100.8 87 24 99/55 92 Ventilator 30% 12/20 2243 30 12/20 2139 100.4 12/20 2040 101.0 12/20 2000 97 Ventilator 30% 12/20 1950 30 12/20 1754 Ventilator 40% 12/20 1610 30 12/20 1600 101.4 88 16 110/82 93 Ventilator 30% 12/20 1600 94 Ventilator 30% 12/20 1455 100.5 12/20 1409 30 12/20 1356 101.0 12/20 1200 95 Ventilator 30% 12/20 1134 30 Exam General Appearance: no apparent distress, sedated, intubated Head: atraumatic, normal appearance Ears, Nose, Throat: mild bleeding on the right mouth corner Neck: normal inspection Respiratory: crackles (b/L but right more than left) Cardiovascular: regular rate/rhythm, JVD Gastrointestinal: decreased bowel sound Extremities: B/L LE edema Weaning Parameters NIF: 42 Minute Volume: 13 Resp rate: 24 Vt: 520 Heart Rate: 107 Weaning Schedule Start Time: 0940 Minute Volume: 13 Resp Rate: 24 Vt: 520 Heart Rate: 107 Current Medications: Current Medications Sig/Ar Start time Last Medication Dose Route Stop Time Status Admin Acetaminophen 640 MG Q4-6 PRN PRN 12/19 1430 AC 12/21 PO 0408 Albuterol Sulfate 3 ML EVERY 4 HRS/AWAKE 12/06 1600 AC 12/21 INH 0822 Alteplase, 2 MG ONE ONE 12/21 0745 DC 12/21 Recombinant IV 12/21 0746 0825 Fat Emulsion 375 ML 1900 12/20 1900 AC 12/20 Intravenous IV 12/21 Fat Emulsion 375 ML 1900 12/19 1900 DC 12/19 Intravenous IV 12/20 185 193 Fentanyl Citrate 1,000 MCG Q10H 12/21 0900 AC 12/21 Sodium Chloride 250 ML IV 0756 Fentanyl Citrate 1,000 MCG Q8H 12/16 1700 DC 12/20 Sodium Chloride 250 ML IV 2044 Fluconazole 400 MG DAILY 12/18 1000 AC 12/21 Sodium Chloride 200 ML IV 0855 Fluconazole 200 MG DAILY 12/18 1000 AC 12/21 Sodium Chloride 100 ML IV 0855 Furosemide 40 MG ONCE ONE 12/20 1630 DC 12/20 IV 12/20 1631 1559 Furosemide 40 MG DAILY 12/20 1000 AC 12/21 IV 0854 Heparin Sodium 5,000 UNIT Q8 12/02 2200 AC 12/21 (Porcine) SC 0638 Ipratropium [place] 2.5 ML EVERY 4 HRS/AWAKE 12/06 1600 AC 12/21 INH 0822 Lorazepam 1 MG Q4P PRN 12/13 1715 AC 12/21 IV 0407 Meropenem 1 GM Q8H 12/15 1000 AC 12/21 IV 0854 Ondansetron HCl 4 MG Q6P PRN 12/02 1800 AC IV Pantoprazole Sodium 40 MG DAILY 12/02 2200 AC 12/21 IV 0854 Petrolatum 1 CECY DAILY NEEDED PRN 12/11 2215 AC 12/17 OPH 1600 Potassium Chloride 20 MEQ Q1H 12/20 0930 DC 12/20 IV 12/20 1031 1351 Total Parenteral 1 UNIT ONE 12/20 1900 AC 12/20 Nutrition IV 12/21 Total Parenteral 1 UNIT ONE 12/19 1900 [place] 12/19 Nutrition IV 12/20 Impression/Plan Impression/Problem List Impression: 89/M with PMH of asthma, HTN, bilateral inguinal hernia s/p repair 30 years ago presented to [facility] on 12/12/15 c/o acute abdominal pain. He was found to have acute perforation of sigmoid colon complicated by peritonitis. He underwent emergent surgery with Henny's procedure. He was subsequently sent to ICU for hemodynamic stabilization, further care as patient is at high risk for infection/respiratory failure post extubation. Today he is still intubated, ventilated, slightly arousable, and spiking fevers. Plan Respiratory: #Respiratory failure. Patient has history of COPD. * On fentanyl drip * Intubated and mechanically ventilated. His ventilation sittings are tidal volume to 500 and respiratory rate of 16. * Patient will most likely go for tracheostomy later today as per surgery Infectious Diseases: #Recurrent Fever explaratory laparotomy. Post op day #19 Underwent repeat drainage during ICU stay, initially JPs was placed, but the last one was removed yesterday 10 am. OR cultures are sent and positive for Gram postive cocci and gram negative rods. * He is still febrile with Tmax of 101.5 yesterday. WBCs went down to 14.2 today from 15.7 yesterday. * we'll cont' IV meropenem Q8 1gm based on culture and sensitivity. * Continue Fluconazol 600 daily. * C. difficile result is negative * We will continue liq acetaminophen and cooling blankets. Cardiovascular: #New onset A. fib postoperativey (resolved). Patient developed A. fib post operative, most likely patient was on stress because of sepsis. He was started on amiodarone drip, patient then converted back to normal sinus rhythm after which a major on trip was discontinued. Currently he is maintaining normal sinus rhythm #New onset bilateral lower extremity edema. Bilateral lower extremity Doppler was done to exclude DVTs as a possible explanation. Results came back negative for DVTs. * we'll keep negative balance #Right Cephalic vein thrombosis Patient was found to have superficial thrombosis in right cephalic vein. He had a peripheral line in that region at the time of surgery. This thrombosis is a superficial and most likely will not lead to any DVTs. * Warm compressors without any anticoagulation for now. Hematology: Patient H&H is down to 7.9 and 23 comparing to yesterday which was 8.1 and 23.9 , white blood cells is up to 18.4 today * We'll repeat CBC tomorrow Metabolic: #JUANA (Resolved) Today creatinine is 0.8 At some point during this admission patient's creatinine went up to 1.6. #Fluid balance * Patient last input output were Intake 3281 and output 5415 (-1594cc) * since admission total intake is still higher than total output. * We will monitor his fluid balance. * We will give Lasix 40 mg daily as a try to keep him negative balance. Alimentary: * NPO with NG decompression * TPN - day 13. * we'll cont' GI prophylaxis. * Colostomy bag in place with active drainage * Bowel sounds present, doing well now * Surgery is on board we will follow their recommendation. Neurological: Patient is sedated and intubated Patient is arousable to tactile stimulus. Endocrinology No endocrinology issue at the time SKI No current skin issues Diet patient is nothing by mouth * We'll continue TPN DVT/Prophylaxis: sc lovenox Code Status: Full Code Problem List: 1. Peritonitis Pain Ratin Tomorrow's Labs & Rationales: CBC and ICU bundle Plan DVT/Prophylaxis: sc lovenox Code Status: Full Code
[2016-12-21 08:00] VITALS: BP 106/64
--- NOTE | 2016-12-21 08:59 | PN- CRCU ---
Subjective HPI/Critical Care Issues: The patient appears slightly more awake today but still not following commands. His temperature curve has improved overall, however he continues to spike noting his MAXIMUM TEMPERATURE was 101.4 over the past 24 hours. His white blood cell count has increased to 18.4. His respiratory status remained stable on 30% mechanical ventilation. The patient's airway pressure is however slightly elevated. He has significant abdominal distention which may be causing the elevated airway pressures. His blood pressure remains in the low 100s on average. He had adequate diuresis yesterday with twice a day Lasix. He remains on TPN and lipids. Objective Current Medications: Current Medications Sig/Ar Start time Last Medication Dose Route Stop Time Status Admin Acetaminophen 640 MG Q4-6 PRN PRN 12/19 1430 AC 12/21 PO 0408 Albuterol Sulfate 3 ML EVERY 4 HRS/AWAKE 12/06 1600 AC 12/21 INH 0822 Alteplase, 2 MG ONE ONE 12/21 0745 DC 12/21 Recombinant IV 12/21 0746 0825 Fat Emulsion 375 ML 1900 12/20 1900 AC 12/20 Intravenous IV 12/21 1859 2025 Fat Emulsion 375 ML 1900 12/19 1900 DC 12/19 Intravenous IV 12/20 1859 1930 Fentanyl Citrate 1,000 MCG Q10H 12/21 0900 AC 12/21 Sodium Chloride 250 ML IV 0756 Fentanyl Citrate 1,000 MCG Q8H 12/16 1700 DC 12/20 Sodium Chloride 250 ML IV 2044 Fluconazole 400 MG DAILY 12/18 1000 AC 12/20 Sodium Chloride 200 ML IV 0906 Fluconazole 200 MG DAILY 12/18 1000 AC 12/20 Sodium Chloride 100 ML IV 1100 Furosemide 40 MG ONCE ONE 12/20 1630 DC 12/20 IV 12/20 1631 1559 Furosemide 40 MG DAILY 12/20 1000 AC 12/20 IV 0930 Heparin Sodium 5,000 UNIT Q8 12/02 2200 AC 12/21 (Porcine) SC 0638 Ipratropium [place] 2.5 ML EVERY 4 HRS/AWAKE 12/06 1600 AC 12/21 INH 0822 Lorazepam 1 MG Q4P PRN 12/13 1715 AC 12/21 IV 0407 Meropenem 1 GM Q8H 12/15 1000 AC 12/21 IV 0218 Ondansetron HCl 4 MG Q6P PRN 12/02 1800 AC IV Pantoprazole Sodium 40 MG DAILY 12/02 2200 AC 12/20 IV 0906 Petrolatum 1 CECY DAILY NEEDED PRN 12/11 2215 AC 12/17 OPH 1600 Potassium Chloride 20 MEQ Q1H 12/20 0930 DC 12/20 IV 12/20 1031 1351 Total Parenteral 1 UNIT ONE 12/20 1900 AC 12/20 Nutrition IV 12/21 Total Parenteral 1 UNIT ONE 12/19 1899 DC 12/19 Nutrition IV 12/20 Vital Signs & I&O Last 24 Hrs of Vitals and I&O: Vital Signs Date Time Temp Pulse Resp B/P Pulse O2 O2 Flow FiO2 Ox Delivery Rate 12/21 0827 30 12/21 0800 100.6 79 21 106/64 97 Ventilator 30% 12/21 0553 30 12/21 0500 99.7 12/21 0408 101.1 12/21 0400 94 Ventilator 30% 12/21 0300 30 12/21 0030 30 12/21 0000 92 Ventilator 30% 12/21 0000 100.8 87 24 99/55 92 Ventilator 30% 12/20 2243 30 12/20 2139 100.4 12/20 2040 101.0 12/20 2000 97 Ventilator 30% 12/20 1950 30 12/20 1754 Ventilator 40% 12/20 1610 30 12/20 1600 101.4 88 16 110/82 93 Ventilator 30% 12/20 1600 94 Ventilator 30% 12/20 1455 100.5 12/20 1409 30 12/20 1356 101.0 12/20 1200 95 Ventilator 30% 12/20 1134 30 Intake & Output 12/21 1600 12/21 0800 12/21 0000 Intake Total 831.0 836.0 Output Total 655 1790 Balance 176.0 -954.0 Intake, IV 158 165 Intake, Lipid 126.0 121.0 Intake, 547 550 TPN/PPN Output, 200 100 Gastric Drainage Output, Stool 30 30 Output, Urine 425 1660 Patient 213 lb Weight Exam General Appearance: sedated, intubated Head: atraumatic, normal appearance Neck: supple Respiratory: scattered bilateral rhonchi, the lungs expand symmetrically and the trachea is midline Cardiovascular: regular rate/rhythm (no murmur) Abdomen: distended with a clean incision, no erythema or drainage, colostomy has a small amount of liquid output Extremities: 1+ pitting edema Skin: intact, warm/dry Results Last 24 Hrs of Lab Results: Laboratory Tests 12/21/16 0429: Anion Gap 8, Estimated GFR > 60, Glucose 149 H, Calcium 7.5 L, Phosphorus 4.6 H, Magnesium 1.7, Total Bilirubin 4.4 H, AST 45, ALT 33, Albumin 2.2 L, PT 15.2 H, INR 1.45 H, CBC w Diff NO MAN DIFF REQ, RBC 2.78 L, MCV 82.7, MCH 28.4, RDW 15.0 H, MPV 9.1, Gran % 80.8 H, Lymphocytes % 11.3 L, Monocytes % 6.8, Eosinophils % 0.6, Basophils % 0.5, Absolute Granulocytes 14.9 H, Absolute Lymphocytes 2.1, Absolute Monocytes 1.3 H, Absolute Eosinophils 0.1, Absolute Basophils 0.1, PUBS MCHC 34.3 Diagnostic Data CXR Findings: - Endotracheal tube tip remains in unchanged position, 3.8 cm above the fernando. Additional tubes and lines as described. - Slightly worsening mild to moderate interstitial pulmonary edema. Increasing retrocardiac/left basilar airspace opacity. No pleural effusions. Impression/Plan Impression/Plan Impression/Plan: 1. S/P exploratory laparotomy and Hartmans procedure, s/p repeat abdominal washout. The patient has persistent fevers. He remains on meropenem and Diflucan for coverage of his OR cultures. 2. Respiratory failure with evidence of volume overload and possible new airspace opacity. 3. 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 4. Malnutrition. 5. Superficial cephalic vein thrombosis, no DVT. 6. Anemia without bleeding - likely dilutional. 7. Worsening bilirubinemia which may be related to TPN. Need to rule out biliary disease. Recommendations: * Check intra-abdominal pressures. * Check an urgent right upper quadrant ultrasound. * We will need to discuss findings with GI or surgery depending upon results. * Continue meropenem and Diflucan as per ID. * Continue current ventilator settings. * TRC/nebs. * Monitor daily CXRs. * Multi-Podus boots to avoid foot drop. * Cooling blanket as necessary to control temps. * Continue TPN. Will begin enteral nutrition when cleared by surgery. * Fentanyl drip to be weaned as tolerated. * Lasix 40 mg IV BID if BP tolerates. * Continue DVT and GI prophylaxis. * Await plan for trach. * Continue all supportive care. Code Status: Full Code
--- NOTE | 2016-12-21 11:01 | PN- Infect Dx ---
Subjective Subjective: MAXIMUM TEMPERATURE 101.4. Objective Last 24 Hrs of Vital Signs/I&O Vital Signs Date Time Temp Pulse Resp B/P Pulse O2 O2 Flow FiO2 Ox Delivery Rate 12/21 0827 30 12/21 0800 100.6 79 21 106/64 97 Ventilator 30% 12/21 0800 100 Ventilator 30% 12/21 0553 30 12/21 0500 99.7 12/21 0408 101.1 12/21 0400 94 Ventilator 30% 12/21 0300 30 12/21 0030 30 12/21 0000 92 Ventilator 30% 12/21 0000 100.8 87 24 99/55 92 Ventilator 30% 12/20 2243 30 12/20 2139 100.4 12/20 2040 101.0 12/20 2000 97 Ventilator 30% 12/20 1950 30 12/20 1754 Ventilator 40% 12/20 1610 30 12/20 1600 101.4 88 16 110/82 93 Ventilator 30% 12/20 1600 94 Ventilator 30% 12/20 1455 100.5 12/20 1409 30 12/20 1356 101.0 12/20 1200 95 Ventilator 30% 12/20 1134 30 Intake & Output 12/21 1600 12/21 0800 12/21 0000 Intake Total 831.0 836.0 Output Total 655 1790 Balance 176.0 -954.0 Intake, IV 158 165 Intake, Lipid 126.0 121.0 Intake, 547 550 TPN/PPN Output, 200 100 Gastric Drainage Output, Stool 30 30 Output, Urine 425 1660 Patient 213 lb Weight Physical Exam Other Physical Findings: He remains sedated though responsive to pain Lungs scattered rhonchi bilaterally Heart regular rhythm with no murmur Abdomen is distended, incision is clean, with no erythema or drainage; liquid stool in the colostomy Extremities 1+ edema both lower extremities; PICC in the left upper extremity with no inflammation at the site Edward catheter remains in place Results Last 24 Hours of Lab Results: Laboratory Tests 12/21 428 Chemistry Sodium (137 - 145 mmol/L) 137 Potassium (3.5 - 5.1 mmol/L) 4.3 Chloride (98 - 107 mmol/L) 97 L Carbon Dioxide (22 - 30 mmol/L) 32 H Anion Gap (5 - 16) 8 BUN (9 - 20 mg/dL) 25 H Creatinine (0.7 - 1.2 mg/dL) 0.8 Estimated GFR (>60 ml/min) > 60 Glucose (65 - 99 mg/dL) 149 H Calcium (8.4 - 10.2 mg/dL) 7.5 L Phosphorus (2.5 - 4.5 mg/dL) 4.6 H Magnesium (1.6 - 2.3 mg/dL) 1.7 Total Bilirubin (0.2 - 1.3 mg/dL) 4.4 H AST (17 - 59 U/L) 45 ALT (21 - 72 U/L) 33 Albumin (3.5 - 5.0 g/dL) 2.2 L Coagulation PT (9.4 - 12.5 SEC) 15.2 H INR (0.90 - 1.17) 1.45 H Hematology CBC w Diff NO MAN DIFF REQ WBC (4.8 - 10.8 /CUMM) 18.4 H RBC (4.70 - 6.10 /CUMM) 2.78 L Hgb (14.0 - 18.0 G/DL) 7.9 L Hct (42 - 52 %) 23.0 L MCV (80.0 - 94.0 FL) 82.7 MCH (27.0 - 31.0 PG) 28.4 RDW (11.5 - 14.5 %) 15.0 H Plt Count (130 - 400 /CUMM) 519 H MPV (7.4 - 10.4 FL) 9.1 Gran % (42.2 - 75.2 %) 80.8 H Lymphocytes % (20.5 - 51.1 %) 11.3 L Monocytes % (1.7 - 9.3 %) 6.8 Eosinophils % (0 - 5 %) 0.6 Basophils % (0.0 - 2.0 %) 0.5 Absolute Granulocytes (1.4 - 6.5 /CUMM) 14.9 H Absolute Lymphocytes (1.2 - 3.4 /CUMM) 2.1 Absolute Monocytes (0.10 - 0.60 /CUMM) 1.3 H Absolute Eosinophils (0.0 - 0.7 /CUMM) 0.1 Absolute Basophils (0.0 - 0.2 /CUMM) 0.1 PUBS MCHC (33.0 - 37.0 G/DL) 34.3 Last 24 Hours of Adrian Results: Blood cultures 2 Monet 20 remain negative Recent Imaging Studies: Chest x-ray December 21, personally reviewed, reveals slight worsening of the central vascular congestion with moderate interstitial pulmonary edema and increasing retrocardiac/left basilar airspace opacity Assessment/Plan Impression: Fevers persist with white blood cell count increasing despite Meropenem and Fluconazole now 9 days status post repeat laparotomy for drainage of intraperitoneal abscesses and 19 days status post his initial Kirkland's procedure for peritonitis secondary to a perforated viscus. His recent cultures and CT of the abdomen and pelvis were unrevealing, but he remains at risk for nosocomial infections, including C. difficile with liquid stool reported. His bilirubin has increased over the last several days as noted by Pulmonary, with plans for a right upper quadrant ultrasound. The CT scan did demonstrate bilateral pleural effusions, which most likely represent fluid overload, given his chest x-ray findings, but they could represent potential foci of infection and further evaluation may be necessary if his fevers and/or leukocytosis persist. Suggestion: 1. Follow-up right upper quadrant ultrasound 2. Would add an alk phosphatase to his recent blood work 3. Repeat stool for C. difficile 4. Further evaluation for example repeat cultures and repeat CT scan of the chest, abdomen and pelvis, with possible thoracentesis, depending on above results and if fevers/leukocytosis persist 5. Continue Meropenem and Fluconazole
--- NOTE | 2016-12-21 11:31 | ULTRASOUND REPORT ---
EXAMINATION: US ABDOMEN LIMITED CLINICAL INFORMATION: Fever. Increasing white blood cell count.. COMPARISON: CT 12/02/2016. TECHNIQUE: Real-time imaging of the right upper quadrant abdominal viscera. FINDINGS: Portable technique with an intubated patient limits evaluation. PANCREAS: The pancreatic head and body appear unremarkable. The pancreatic tail is obscured by gas. LIVER: Normal. The liver demonstrates normal size, contour and echogenicity. No focal lesion or intrahepatic biliary duct dilatation. GALLBLADDER: Normal. The gallbladder is physiologically distended without evidence of stones, sludge, polyps, wall thickening or pericholecystic fluid. COMMON BILE DUCT: Normal in caliber measuring 0.3 cm in diameter. RIGHT KIDNEY: Normal. No hydronephrosis. No renal calculi or focal parenchymal lesions. The kidney measures 11.1 cm in maximum dimension. FREE FLUID: Small amount of fluid is seen adjacent to the liver in the region of the gallbladder. IMPRESSION: Limited study due to patient intubation and limited mobility. Small amount of free fluid adjacent to the gallbladder. No wall thickening or cholelithiasis.
--- NOTE | 2016-12-21 13:04 | NUR ---
@0800-PT DROWSY/AROUS. OPENS EYES TO VERBAL STIM/TACTLIE STIM. NOT FOLLOWING COMMANDS. CONT ON FENT GTT AT 87.5MCG. TEMP 100.5 THIS AM. BILAT WRISTS CONT FOR SAFETY OF ETT. CONT ON VENT-NO CHANGE TO SETTINGS AT THIS TIME, ? PLAN FOR TRACH LATER TODAY. 02SAT 96%. THIN WHITE SECRETIONS NOTED DOWN ETT. ORAL CARE PROVIDED. PT CONT WITH SCAB TO R SIDE OF MOUTH. NEBS Q4HRS. TO RECIEVE IV LASIX 40MG DAILY. NSR HR 80S. BP STABLE. NGT TO R NARES TO LWS-GREEN DRAINAGE NOTED. ABD DISTENDED/FIRM-HYPOACTIVE BS. COLOSTOMY NOTED WITH BROWN LIQ DRAINAGE, +FLATUS. ABD US ORD. ANN IN PLACE WITH ORANGE CLEAR URINE NOTED IN ADEQUATE AMTS. SKIN INTACT WITH +1BUE EDEMA, +3 SCROTAL EDEMA, +2 BLE EDEMA. MULTIPODUS BOOTS PLACED BACK ON BILAT. EXTREMETIES ELEVATED WITH PILLOWS. SURG INCISION WITH COURTNEY TO ABD MIDLINE-DSG CDI WITH MIN DRAINAGE TO PROXIMAL END OF INCISION. BILLY PICC IN PLACE WITH CLAUDIO PORT NOT WORKING-CATHFLO ORD BY HOUSESTAFF. TPN/LIPIDS/FENT GTT CONT TO INFUSE. CONT TO MONITOR CLOSELY. CALL BENITES WITHIN REACH
--- NOTE | 2016-12-21 13:20 | NUR ---
@1000-IV LASIX 40MG ADMINISTERED ORD. CLAUDIO PORT TO [facility] PICC NOW WORKING WITH +BLOOD RETURN AFTER ADMINISTRATION OF CATHFLO. INTRAABDOMINAL PRESSURE CHECKED PER REQUEST OF DR SCHULTE-READING OF 18-20 OBTAINED AND REPORTED TO DR SCHULTE. WILL CHECK IAP QSHIFT. ABD US BEING DONE AT BEDSIDE AT THIS TIME. PT RECIEVED IV DIFLUCAN AND IV MEROPENUM ORD. PREOP SCRUB DONE AT THIS TIME WITH ANTICIPATION FOR TRACH PLACEMENT THIS AFTERNOON. CONT TO MONITOR CLOSELY, FAMILY AT BEDSIDE.
--- NOTE | 2016-12-21 14:38 | NUR ---
@1430-TEMP 103. TYLENOL ADMINISTERED VIA NGT. ICE PACKS APPLIED TO GROIN AND ARMPITS. 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 CONT TO MONITOR
[2016-12-21 16:00] VITALS: BP 84/60
--- NOTE | 2016-12-21 17:18 | NUR ---
@1600-REPEAT BC X 2, UC, UA AND LRC OBTAINED AND SENT TO LAB ORD. FEVER DOWN TO 101.7 FROM 103. CONT TO MONITOR CLOSELY. AWAITING TIME FOR TRANSPORT TO OR FOR TRACH PLACEMENT. CONT TO MONITOR.
--- NOTE | 2016-12-21 23:00 | NUR ---
pt recieved from OR s/p trach. dressing to area d/c/i. pt lethargic. family at bedside. pt settings on vent ac16, vt 500, 35% fio2 and peep of 5. pt has a portex #7. mouth care given. pt remains on fentanyl @ 75 mcg/hr. pt lungs sounds with wheezing and course crakles. intra-abd pressure 18. midline abd dressing remains intact. colostmy with minimal drainage. ngt to low wall suction with large amount of dk green drainage. will continue to monitor
[2016-12-21 23:45] VITALS: BP 96/52
[2016-12-22 05:17] LABS: ABSOLUTE BASOPHIL COUNT 0 /CUMM (0.0-0.2); ABSOLUTE EOSINOPHIL COUNT 0.2 /CUMM (0.0-0.7); ABSOLUTE GRANULOCYTE CT 19.9 /CUMM (1.4-6.5); ABSOLUTE LYMPH COUNT 1.5 /CUMM (1.2-3.4); ABSOLUTE MONOCYTE COUNT 1.2 /CUMM (0.10-0.60); BASOPHIL % 0.2 % (0.0-2.0); EOSINOPHIL % 0.7 % (0-5); GRANULOCYTE % 87.1 % (42.2-75.2); HEMATOCRIT 20.8 % (42-52); MEAN CORPUSCULAR VOLUME 82.4 FL (80.0-94.0); MEAN PLATELET VOLUME 9.5 FL (7.4-10.4); PLATELET COUNT 477 /CUMM (130-400); RBC DISTRIBUTION WIDTH 14.7 % (11.5-14.5); RED BLOOD CELL CT 2.52 /CUMM (4.70-6.10); WHITE BLOOD CELL COUNT 22.8 /CUMM (4.8-10.8)
--- NOTE | 2016-12-22 05:50 | PN- General Surgery ---
See Addendum Subjective Subjective: Post op day #1 s/p tracheostomy. NAEO. Patient maintained good O2 sats on ventilator. He spiked a fever of 102.5F around 3 a.m. but has defervesced after being given Tylenol. No new issues per RN. Patient opens eyes to stimulation. Remains in soft restraints. Objective Vital Signs and I&Os Vital Signs Date Time Temp Pulse Resp B/P Pulse O2 O2 Flow FiO2 Ox Delivery Rate 12/22 0544 35 12/22 0343 96 Ventilator 35% 12/22 0342 35 12/22 0330 102.5 12/22 0215 102.0 12/22 0034 35 12/21 2345 93 Ventilator 35% 12/21 2345 99.2 94 16 96/52 93 Ventilator 35% 12/21 2215 35 12/21 1940 30 12/21 1940 96 Ventilator 30% 12/21 1600 30 12/21 1600 101.7 101 18 84/60 95 Ventilator 30% 12/21 1600 95 Ventilator 30% 12/21 1530 101.7 12/21 1452 30 12/21 1430 103.0 12/21 1200 95 Ventilator 30% 12/21 1159 30 12/21 0827 30 12/21 0800 100.6 79 21 106/64 97 Ventilator 30% 12/21 0800 100 Ventilator 30% 12/21 0553 30 Intake & Output 12/22 0800 12/22 0000 12/21 1600 12/21 0800 12/21 0000 12/20 1600 Intake Total 1489.0 1294.0 831.0 836.0 1584.0 Output Total 930 4047 568 7833 2980 Balance 559.0 -556.0 176.0 -954.0 -1396.0 Intake, IV 740 532 158 165 782 Intake, Lipid 135.0 125.0 126.0 121.0 130.0 Intake, Oral 60 Intake, Other 80 Intake, 614 577 547 550 592 TPN/PPN Output, 200 120 200 100 250 Gastric Drainage Output, Stool 0 30 30 30 30 Output, Urine 730 3199 866 5287 2700 Patient 213 lb Weight Physical Exam: General: intubated, opens eyes Neck: tracheostomy tube in place, patent. Small blood spotting on dressing on left side, otherwise c/d/i. Chest: Good air movement on ventilator. RRR. Abdomen: soft, distended. Stoma pink and viable. Small amount of brown mucous output. NG tube in place with bilious output. Ext: No calve swelling Current Medications: Current Medications Sig/Ar Start time Last Medication Dose Route Stop Time Status Admin Acetaminophen 640 MG Q4-6 PRN PRN 12/19 1430 AC 12/22 PO 0215 Albuterol Sulfate 3 ML EVERY 4 HRS/AWAKE 12/06 1600 AC 12/21 INH 1607 Alteplase, 2 MG ONE ONE 12/21 0745 LA 12/21 Recombinant IV 12/21 0746 0825 Fat Emulsion 375 ML 0 12/21 1900 12/21 Intravenous IV 12/22 1859 1823 Fat Emulsion 375 ML 0 12/20 1900 LA 12/20 Intravenous IV 12/21 1859 2025 Fentanyl Citrate 100 MCG .STK-MED ONE 12/21 2000 DC IM 12/21 2001 Fentanyl Citrate 1,000 MCG Q10H 12/21 0900 12/21 Sodium Chloride 250 ML IV 1751 Fentanyl Citrate 1,000 MCG Q8H 12/16 1700 LA 12/20 Sodium Chloride 250 ML IV 2044 Fluconazole 400 MG DAILY 12/18 1000 AC 12/21 Sodium Chloride 200 ML IV 0855 Fluconazole 200 MG DAILY 12/18 1000 AC 12/21 Sodium Chloride 100 ML IV 0855 Furosemide 40 MG ONCE ONE 12/21 1500 LA 12/21 IV 12/21 1501 1503 Furosemide 40 MG DAILY 12/20 1000 12/21 IV 0854 Heparin Sodium 5,000 UNIT Q8 12/02 2200 12/21 (Porcine) SC 0638 Ipratropium [place] 2.5 ML EVERY 4 HRS/AWAKE 12/06 1600 AC 12/21 INH 1607 Lorazepam 1 MG Q4P PRN 12/13 1715 AC 12/22 IV 0209 Meropenem 1 GM Q8H 12/15 1000 AC 12/22 IV 0208 Ondansetron HCl 4 MG .STK-MED ONE 12/21 2000 DC IM 12/21 2001 Ondansetron HCl 4 MG Q6P PRN 12/02 1800 AC IV Pantoprazole Sodium 40 MG DAILY 12/02 2200 12/21 IV 0854 Petrolatum 1 CECY DAILY NEEDED PRN 12/11 2215 AC 12/17 OPH 1600 Total Parenteral 1 UNIT ONE 12/21 1900 AC 12/21 Nutrition IV 12/22 185 182 Total Parenteral 1 UNIT ONE 12/21 1000 DC Nutrition IV Total Parenteral 1 UNIT ONE 12/21 1000 DC Nutrition IV 12/22 0959 Total Parenteral 1 UNIT ONE 12/20 1900 DC 12/20 Nutrition IV 12/21 Results Last 48 Hours of Labs: Laboratory Tests 12/22 12/21 0420 1630 Chemistry Sodium (137 - 145 mmol/L) 136 L Potassium (3.5 - 5.1 mmol/L) 4.3 Chloride (98 - 107 mmol/L) 95 L Carbon Dioxide (22 - 30 mmol/L) 32 H Anion Gap (5 - 16) 8 BUN (9 - 20 mg/dL) 33 H Creatinine (0.7 - 1.2 mg/dL) 1.1 Estimated GFR (>60 ml/min) > 60 Glucose (65 - 99 mg/dL) 171 H Calcium (8.4 - 10.2 mg/dL) 7.1 L Phosphorus (2.5 - 4.5 mg/dL) 5.2 H Magnesium (1.6 - 2.3 mg/dL) 1.6 Total Bilirubin (0.2 - 1.3 mg/dL) 5.1 H AST (17 - 59 U/L) 34 ALT (21 - 72 U/L) 32 Albumin (3.5 - 5.0 g/dL) 1.9 L Hematology CBC w Diff Pending WBC Pending RBC Pending Hgb Pending Hct Pending MCV Pending MCH Pending RDW Pending Plt Count Pending MPV Pending Gran % Pending Lymphocytes % Pending Monocytes % Pending Eosinophils % Pending Basophils % Pending Absolute Granulocytes Pending Absolute Lymphocytes Pending Absolute Monocytes Pending Absolute Eosinophils Pending Absolute Basophils Pending PUBS MCHC Pending Urines Urine Color (YEL,AMB,STR) YEL Urine Clarity (CLEAR) HAZY H Urine pH (5.0 - 8.0) 6.0 Ur Specific [place] (1.001 - 1.035) 1.010 Urine Protein (NEG,<30 MG/DL) NEG Urine Ketones (NEG) NEG Urine Nitrite (NEG) NEG Urine Bilirubin (NEG) POS@ICTO H Urine Urobilinogen (0.1 - 1.0 EU/dl) 0.2 Ur Leukocyte Esterase (NEG) NEG Ur Microscopic SEDIMENT EXAMINED Urine RBC (0 - 5 /HPF) 50-75 H Urine WBC (0 - 2 /HPF) RARE Ur Epithelial Cells (NONE,FEW) OCCAS Hyaline Casts (0/LPF) FEW H Granular Casts (NONE /LPF) MANY H Urine Hemoglobin (NEG) LARGE H Urine Glucose (N MG/DL) NEG 12/21 0429 Chemistry Sodium (137 - 145 mmol/L) 137 Potassium (3.5 - 5.1 mmol/L) 4.3 Chloride (98 - 107 mmol/L) 97 L Carbon Dioxide (22 - 30 mmol/L) 32 H Anion Gap (5 - 16) 8 BUN (9 - 20 mg/dL) 25 H Creatinine (0.7 - 1.2 mg/dL) 0.8 Estimated GFR (>60 ml/min) > 60 Glucose (65 - 99 mg/dL) 149 H Calcium (8.4 - 10.2 mg/dL) 7.5 L Phosphorus (2.5 - 4.5 mg/dL) 4.6 H Magnesium (1.6 - 2.3 mg/dL) 1.7 Total Bilirubin (0.2 - 1.3 mg/dL) 4.4 H AST (17 - 59 U/L) 45 ALT (21 - 72 U/L) 33 Alkaline Phosphatase (< 127 U/L) 122 Albumin (3.5 - 5.0 g/dL) 2.2 L Coagulation PT (9.4 - 12.5 SEC) 15.2 H INR (0.90 - 1.17) 1.45 H Hematology CBC w Diff NO MAN DIFF REQ WBC (4.8 - 10.8 /CUMM) 18.4 H RBC (4.70 - 6.10 /CUMM) 2.78 L Hgb (14.0 - 18.0 G/DL) 7.9 L Hct (42 - 52 %) 23.0 L MCV (80.0 - 94.0 FL) 82.7 MCH (27.0 - 31.0 PG) 28.4 RDW (11.5 - 14.5 %) 15.0 H Plt Count (130 - 400 /CUMM) 519 H MPV (7.4 - 10.4 FL) 9.1 Gran % (42.2 - 75.2 %) 80.8 H Lymphocytes % (20.5 - 51.1 %) 11.3 L Monocytes % (1.7 - 9.3 %) 6.8 Eosinophils % (0 - 5 %) 0.6 Basophils % (0.0 - 2.0 %) 0.5 Absolute Granulocytes (1.4 - 6.5 /CUMM) 14.9 H Absolute Lymphocytes (1.2 - 3.4 /CUMM) 2.1 Absolute Monocytes (0.10 - 0.60 /CUMM) 1.3 H Absolute Eosinophils (0.0 - 0.7 /CUMM) 0.1 Absolute Basophils (0.0 - 0.2 /CUMM) 0.1 PUBS MCHC (33.0 - 37.0 G/DL) 34.3 Assessment/Plan Assessment/Plan 89yo M s/p exploratory laparotomy with Kirkland's procedure and subsequent reexploration and washout of the abdomen. POD#1 s/p tracheostomy. Afebrile. Plan: -Keep nothing by mouth with NG tube. -Continue TPN for nutritional support. -Continue abx -Continue frequent abd dressing changes. -GI and DVT prophylaxis. -Pain control and sedation. -Continue use of tracheostomy, change dressing as needed. -Medical management per critical care team. -Will discuss with attending. Core Measures/Miscellaneous Edward Catheter Date In: 12/02/16 Venous Thromboembolism VTE Risk Factors: Acute medical illness, Age > 40, Surgery VTE Contraindications: No Contraindications VTE Prophylaxis Ordered Inpt Mech & Pharm VTE Diagnosis: No Beta Abelardo Is Beta Abelardo a Home Med? No Antibiotics Is Patient on Antibiotics? Yes If Yes: infection
--- NOTE | 2016-12-22 07:46 | PN- Resident CRCU ---
Subjective HPI/CRCU Issues: Patient was seen and examined. Patient is arousable to verbal and tactile stimulation. He is unable to provide any review of systems. Patient is on fentanyl patch rate 65. He had tracheostomy yesterday. No sign of infection or bleeding around his IVs. 24 Hour Events: * Tmax: 103 * HR: 105-88 * BP: 75/46 at 11 am yesterday, 84/54 at 17:00, 75/49 at 3 am today. During the last shift patient blood pressure was running as low as 80s/50s * Total intake yesterday were 3579 total output yesterday was 3375 Objective Vital Signs & I&O Last 8 Hrs of Vitals and I&O: Intake & Output 12/22 1600 12/22 0800 12/22 0000 Intake Total 796.0 1489.0 Output Total 595 930 Balance 201.0 559.0 Intake, IV 176 740 Intake, Lipid 112.0 135.0 Intake, 508 614 TPN/PPN Output, 150 200 Gastric Drainage Output, Stool 0 0 Output, Urine 445 730 Patient 98.94 kg Weight Laboratory Tests 12/22 12/21 0420 1630 Chemistry Sodium (137 - 145 mmol/L) 136 L Potassium (3.5 - 5.1 mmol/L) 4.3 Chloride (98 - 107 mmol/L) 95 L Carbon Dioxide (22 - 30 mmol/L) 32 H Anion Gap (5 - 16) 8 BUN (9 - 20 mg/dL) 33 H Creatinine (0.7 - 1.2 mg/dL) 1.1 Estimated GFR (>60 ml/min) > 60 Glucose (65 - 99 mg/dL) 171 H Calcium (8.4 - 10.2 mg/dL) 7.1 L Phosphorus (2.5 - 4.5 mg/dL) 5.2 H Magnesium (1.6 - 2.3 mg/dL) 1.6 Iron (49 - 181 ug/dL) < 10 L TIBC (261 - 462 ug/dL) 126 L Ferritin (17.9 - 464 ng/mL) Pending Total Bilirubin (0.2 - 1.3 mg/dL) 5.1 H AST (17 - 59 U/L) 34 ALT (21 - 72 U/L) 32 Lactate Dehydrogenase (313 - 618 U/L) 647 H Albumin (3.5 - 5.0 g/dL) 1.9 L Hematology CBC w Diff MAN DIFF ORDERED WBC (4.8 - 10.8 /CUMM) 22.8 H RBC (4.70 - 6.10 /CUMM) 2.52 L Hgb (14.0 - 18.0 G/DL) 7.1 *L Hct (42 - 52 %) 20.8 L MCV (80.0 - 94.0 FL) 82.4 MCH (27.0 - 31.0 PG) 28.0 RDW (11.5 - 14.5 %) 14.7 H Plt Count (130 - 400 /CUMM) 477 H MPV (7.4 - 10.4 FL) 9.5 Gran % (42.2 - 75.2 %) 87.1 H Lymphocytes % (20.5 - 51.1 %) 6.6 L Monocytes % (1.7 - 9.3 %) 5.4 Eosinophils % (0 - 5 %) 0.7 Basophils % (0.0 - 2.0 %) 0.2 Absolute Granulocytes (1.4 - 6.5 /CUMM) 19.9 H Segmented Neutrophils (42.2 - 75.2 %) 90 H Absolute Lymphocytes (1.2 - 3.4 /CUMM) 1.5 Lymphocytes (20.5 - 51.1 %) 6 L Monocytes (1.7 - 9.3 %) 4 Absolute Monocytes (0.10 - 0.60 /CUMM) 1.2 H Absolute Eosinophils (0.0 - 0.7 /CUMM) 0.2 Absolute Basophils (0.0 - 0.2 /CUMM) 0 Platelet Estimate (ADEQUATE) INCREASED Polychromasia 1+ Poikilocytosis 2+ Ovalocytes 1+ Stomatocytes 1+ PUBS MCHC (33.0 - 37.0 G/DL) 34.0 Other Body Source Fld Total RBCs Counted (%) 100 Urines Urine Color (YEL,AMB,STR) YEL Urine Clarity (CLEAR) HAZY H Urine pH (5.0 - 8.0) 6.0 Ur Specific [place] (1.001 - 1.035) 1.010 Urine Protein (NEG,<30 MG/DL) NEG Urine Ketones (NEG) NEG Urine Nitrite (NEG) NEG Urine Bilirubin (NEG) POS@ICTO H Urine Urobilinogen (0.1 - 1.0 EU/dl) 0.2 Ur Leukocyte Esterase (NEG) NEG Ur Microscopic SEDIMENT EXAMINED Urine RBC (0 - 5 /HPF) 50-75 H Urine WBC (0 - 2 /HPF) RARE Ur Epithelial Cells (NONE,FEW) OCCAS Hyaline Casts (0/LPF) FEW H Granular Casts (NONE /LPF) MANY H Urine Hemoglobin (NEG) LARGE H Urine Glucose (N MG/DL) NEG Intake & Output 12/22 1600 Intake Total Output Total Balance Patient 98.94 kg Weight Exam General Appearance: well developed/nourished, sedated, intubated Head: atraumatic, normal appearance Neck: normal inspection Respiratory: lungs clear (her laterally) Cardiovascular: regular rate/rhythm Gastrointestinal: distended. There is surgical incision with clips placed on. mild erythema but no warmth around the incision. Extremities: bilateral lower extremity edema Weaning Parameters NIF: 42 Minute Volume: 13 Resp rate: 24 Vt: 520 Heart Rate: 107 Weaning Schedule Start Time: 0940 Minute Volume: 13 Resp Rate: 24 Vt: 520 Heart Rate: 107 Current Medications: Current Medications Sig/Ar Start time Last Medication Dose Route Stop Time Status Admin Acetaminophen 640 MG Q4-6 PRN PRN 12/19 1430 AC 12/22 PO 0215 Albuterol Sulfate 3 ML EVERY 4 HRS/AWAKE 12/06 1600 AC 12/22 INH 0755 Fat Emulsion 375 ML 1900 12/21 1900 AC 12/21 Intravenous IV 12/22 1859 1823 Fat Emulsion 375 ML 0 12/20 1900 DC 12/20 Intravenous IV 12/21 1859 2025 Fentanyl Citrate 100 MCG .STK-MED ONE 12/21 2000 DC IM 12/21 2001 Fentanyl Citrate 1,000 MCG Q10H 12/21 0900 AC 12/22 Sodium Chloride 250 ML IV 0600 Fluconazole 400 MG DAILY 12/18 1000 AC 12/21 Sodium Chloride 200 ML IV 0855 Fluconazole 200 MG DAILY 12/18 1000 AC 12/21 Sodium Chloride 100 ML IV 0855 Furosemide 40 MG ONCE ONE 12/21 1500 DC 12/21 IV 12/21 1501 1503 Furosemide 40 MG DAILY 12/20 1000 AC 12/22 IV 0921 Heparin Sodium 5,000 UNIT Q8 12/02 2200 AC 12/22 (Porcine) SC 0600 Ipratropium [place] 2.5 ML EVERY 4 HRS/AWAKE 12/06 1600 AC 12/22 INH 0755 Lorazepam 1 MG Q4P PRN 12/13 1715 AC 12/22 IV 0209 Magnesium Sulfate 1 GM ONCE ONE 12/22 0700 AC 12/22 Dextrose/Water 100 ML IV 12/22 1059 0700 Meropenem 1 GM Q8H 12/15 1000 AC 12/22 IV 0921 Ondansetron HCl 4 MG .STK-MED ONE 12/21 2000 DC IM 12/21 2001 Ondansetron HCl 4 MG Q6P PRN 12/02 1800 AC IV Pantoprazole Sodium 40 MG DAILY 12/02 2200 AC 12/22 IV 0921 Petrolatum 1 CECY DAILY NEEDED PRN 12/11 2215 AC 12/17 OPH 1600 Total Parenteral 1 UNIT ONE 12/21 1900 AC 12/21 Nutrition IV 12/22 185 1823 Total Parenteral 1 UNIT ONE 12/21 1000 DC Nutrition IV Total Parenteral 1 UNIT ONE 12/21 1000 DC Nutrition IV 12/22 0959 Total Parenteral 1 UNIT ONE 12/20 1900 DC 12/20 Nutrition IV 12/21 Impression/Plan Impression/Problem List Impression: 89/M with PMH of asthma, HTN, bilateral inguinal hernia s/p repair 30 years ago presented to [facility] on 12/12/15 c/o acute abdominal pain. He was found to have acute perforation of sigmoid colon complicated by peritonitis. He underwent emergent surgery with Henny's procedure. He was subsequently sent to ICU for hemodynamic stabilization, further care as patient is at high risk for infection/respiratory failure post extubation. Today he is still on ventilated through tracheostomy, slightly arousable, and spiking fevers. Plan Respiratory: #Respiratory failure. Patient has history of COPD. * On fentanyl drip * Patient is on mechanically ventilated through tracheostomy. His ventilation sittings are tidal volume to 500 and respiratory rate of 16. Infectious Diseases: #Recurrent Fever explaratory laparotomy. Post op day #20 Underwent repeat drainage during ICU stay. OR cultures was sent and was positive for Gram postive cocci and gram negative rods. * He is still febrile with Tmax of 103 yesterday. WBCs going up to 22.8 * we'll cont' IV meropenem Q8 1gm based on his old culture and sensitivity. * Continue Fluconazol 600 daily. * Yesterday we send a new panculture, will follow the results. * Yesterday we send a new C. difficile, we will follow the results * We will send for CT head, CT abdomen, and CT chest looking for any acute pathology. * We will continue liq acetaminophen and cooling blankets when necessary. Cardiovascular: #New onset A. fib postoperativey (resolved). Patient developed A. fib post operative, most likely patient was on stress because of sepsis. He was started on amiodarone drip, patient then converted back to normal sinus rhythm after which a major on trip was discontinued. Currently he is maintaining normal sinus rhythm #New onset bilateral lower extremity edema. Bilateral lower extremity Doppler was done to exclude DVTs as a possible explanation. Results came back negative for DVTs. * we'll keep negative balance #Right Cephalic vein thrombosis Patient was found to have superficial thrombosis in right cephalic vein. He had a peripheral line in that region at the time of surgery. This thrombosis is a superficial and most likely will not lead to any DVTs. * Warm compressors without any anticoagulation for now. Hematology: Patient H&H is down to 7.1 and 20.8. white blood cells is up to22.8 today. Given the fact that LDH and total bilirubin are elevated, this can be haemolysis * Patient will receive one pack of red blood cell * We'll repeat CBC tomorrow Metabolic: #JUANA (Resolved) Today creatinine increased to 1.1 from 0.8 yesterday. At some point during this admission patient's creatinine went up to 1.6. #Fluid balance * since admission total intake is still higher than total output. * We will monitor his fluid balance. * We will give Lasix 40 mg daily as a try to keep him negative balance. Alimentary: * NPO with NG decompression * TPN - day 14. * we'll cont' GI prophylaxis. * Colostomy bag in place with active drainage * Bowel sounds present. * Surgery is on board we will follow their recommendation. Neurological: Patient is sedated and ventilated through tracheostomy Patient is arousable to verbal and tactile stimulus. Endocrinology No endocrinology issue at the time SKI No current skin issues Diet patient is nothing by mouth * We'll continue TPN DVT/Prophylaxis: sc lovenox Code Status: Full Code Problem List: 1. Peritonitis Pain Ratin Tomorrow's Labs & Rationales: cbc, icu bundle Plan DVT/Prophylaxis: sc lovenox Code Status: Full Code
[2016-12-22 08:00] VITALS: BP 100/60
--- NOTE | 2016-12-22 10:16 | PN- CRCU ---
Subjective HPI/Critical Care Issues: The patient remains intermittently febrile. He opens his eyes to tactile stimulus however he is not following commands. He remains hemodynamically stable. His oxygenation remained stable at 30%. There were no reported overnight events. Objective Current Medications: Current Medications Sig/Ar Start time Last Medication Dose Route Stop Time Status Admin Acetaminophen 640 MG Q4-6 PRN PRN 12/19 1430 AC 12/22 PO 0215 Albuterol Sulfate 3 ML EVERY 4 HRS/AWAKE 12/06 1600 12/22 INH 0755 Fat Emulsion 375 ML 1900 12/21 1900 AC 12/21 Intravenous IV 12/22 1859 1823 Fat Emulsion 375 ML 1900 12/20 1900 DC 12/20 Intravenous IV 12/21 185 202 Fentanyl Citrate 100 MCG .STK-MED ONE 12/21 2000 DC IM 12/21 2001 Fentanyl Citrate 1,000 MCG Q10H 12/21 0900 12/22 Sodium Chloride 250 ML IV 0600 Fluconazole 400 MG DAILY 12/18 1000 AC 12/21 Sodium Chloride 200 ML IV 0855 Fluconazole 200 MG DAILY 12/18 1000 12/21 Sodium Chloride 100 ML IV 0855 Furosemide 40 MG ONCE ONE 12/21 1500 DC 12/21 IV 12/21 1501 1503 Furosemide 40 MG DAILY 12/20 1000 12/22 IV 0921 Heparin Sodium 5,000 UNIT Q8 12/02 2199 12/22 (Porcine) SC 0600 Ipratropium [place] 2.5 ML EVERY 4 HRS/AWAKE 12/06 1600 12/22 INH 0755 Lorazepam 1 MG Q4P PRN 12/13 1715 12/22 IV 0209 Magnesium Sulfate 1 GM ONCE ONE 12/22 0700 12/22 Dextrose/Water 100 ML IV 12/22 1059 0700 Meropenem 1 GM Q8H 12/15 1000 12/22 IV 0921 Ondansetron HCl 4 MG .STK-MED ONE 12/21 2000 DC IM 12/21 2001 Ondansetron HCl 4 MG Q6P PRN 12/02 1800 AC IV Pantoprazole Sodium 40 MG DAILY 12/02 2200 AC 12/22 IV 0921 Petrolatum 1 CECY DAILY NEEDED PRN 12/11 2215 AC 12/17 OPH 1600 Total Parenteral 1 UNIT ONE 12/21 1900 AC 12/21 Nutrition IV 12/22 1859 1823 Total Parenteral 1 UNIT ONE 12/20 1900 DC 12/20 Nutrition IV 12/21 Vital Signs & I&O Last 24 Hrs of Vitals and I&O: Vital Signs Date Time Temp Pulse Resp B/P Pulse O2 O2 Flow FiO2 Ox Delivery Rate 12/22 0800 99.8 100 24 100/60 93 Ventilator 35% 12/22 0800 93 Ventilator 35% 12/22 0749 35 12/22 0544 35 12/22 0343 96 Ventilator 35% 12/22 0342 35 12/22 0330 102.5 12/22 0215 102.0 12/22 0034 35 12/21 2345 93 Ventilator 35% 12/21 2345 99.2 94 16 96/52 93 Ventilator 35% 12/21 2215 35 12/21 1940 30 12/21 1940 96 Ventilator 30% 12/21 1600 30 12/21 1600 101.7 101 18 84/60 95 Ventilator 30% 12/21 1600 95 Ventilator 30% 12/21 1530 101.7 12/21 1452 30 12/21 1430 103.0 12/21 1200 95 Ventilator 30% 12/21 1159 30 Intake & Output 12/22 1600 12/22 0800 12/22 0000 Intake Total 796.0 1489.0 Output Total 595 930 Balance 201.0 559.0 Intake, IV 176 740 Intake, Lipid 112.0 135.0 Intake, 508 614 TPN/PPN Output, 150 200 Gastric Drainage Output, Stool 0 0 Output, Urine 445 730 Patient 218 lb Weight Exam General Appearance: sedated, intubated Head: atraumatic, normal appearance Neck: supple Respiratory: scattered bilateral rhonchi, the lungs expand symmetrically and the trachea is midline Cardiovascular: regular rate/rhythm (no murmur) Abdomen: distended with a clean incision, no erythema or drainage, colostomy has a small amount of liquid output Extremities: 1+ pitting edema Skin: intact, warm/dry Impression/Plan Impression/Plan Impression/Plan: 1. S/P exploratory laparotomy and Hartmans procedure, s/p repeat abdominal washout. The patient has persistent fevers. He remains on meropenem and Diflucan for coverage of his OR cultures. 2. Respiratory failure with evidence of volume overload and possible new airspace opacity. 3. 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 4. Malnutrition. 5. Superficial cephalic vein thrombosis, no DVT. 6. Anemia without bleeding - likely dilutional. 7. Worsening bilirubinemia which may be related to TPN. Need to rule out biliary disease. Recommendations: * Check a CT of the of the sinuses, chest, abdomen and pelvis. * Discuss TPN with nutrition regarding elevated bilirubin levels. * Continue meropenem and Diflucan as per ID. * Continue current ventilator settings. * TRC/nebs. * Cooling blanket as necessary to control temps. * Continue TPN. Will begin enteral nutrition when cleared by surgery. * Fentanyl drip to be weaned as tolerated. * Lasix 40 mg IV BID if BP tolerates. * Continue DVT and GI prophylaxis. * Continue all supportive care. Code Status: Full Code
--- NOTE | 2016-12-22 11:10 | PN- Infect Dx ---
Subjective Subjective: MAXIMUM TEMPERATURE 103 status post tracheostomy last evening. Objective Last 24 Hrs of Vital Signs/I&O Vital Signs Date Time Temp Pulse Resp B/P Pulse O2 O2 Flow FiO2 Ox Delivery Rate 12/22 1044 35 12/22 0800 99.8 100 24 100/60 93 Ventilator 35% 12/22 0800 93 Ventilator 35% 12/22 0749 35 12/22 0544 35 12/22 0343 96 Ventilator 35% 12/22 0342 35 12/22 0330 102.5 12/22 0215 102.0 12/22 0034 35 12/21 2345 93 Ventilator 35% 12/21 2345 99.2 94 16 96/52 93 Ventilator 35% 12/21 2215 35 12/21 1940 30 12/21 1940 96 Ventilator 30% 12/21 1600 30 12/21 1600 101.7 101 18 84/60 95 Ventilator 30% 12/21 1600 95 Ventilator 30% 12/21 1530 101.7 12/21 1452 30 12/21 1430 103.0 12/21 1200 95 Ventilator 30% 12/21 1159 30 Intake & Output 12/22 1600 12/22 0800 12/22 0000 Intake Total 796.0 1489.0 Output Total 595 930 Balance 201.0 559.0 Intake, IV 176 740 Intake, Lipid 112.0 135.0 Intake, 508 614 TPN/PPN Output, 150 200 Gastric Drainage Output, Stool 0 0 Output, Urine 445 730 Patient 218 lb Weight Physical Exam Other Physical Findings: He remains sedated though perhaps more responsive according to his family Neck status post tracheostomy Lungs scattered rhonchi bilaterally Heart regular rhythm with no murmur Abdomen distended, incision is clean, with no erythema or drainage noted; liquid stool in the colostomy Extremities 1+ edema both lower extremities; PICC in the left upper extremity with no inflammation at the site Edward catheter remains in place Results Last 24 Hours of Lab Results: Laboratory Tests 12/22 12/21 0420 1630 Chemistry Sodium (137 - 145 mmol/L) 136 L Potassium (3.5 - 5.1 mmol/L) 4.3 Chloride (98 - 107 mmol/L) 95 L Carbon Dioxide (22 - 30 mmol/L) 32 H Anion Gap (5 - 16) 8 BUN (9 - 20 mg/dL) 33 H Creatinine (0.7 - 1.2 mg/dL) 1.1 Estimated GFR (>60 ml/min) > 60 Glucose (65 - 99 mg/dL) 171 H Calcium (8.4 - 10.2 mg/dL) 7.1 L Phosphorus (2.5 - 4.5 mg/dL) 5.2 H Magnesium (1.6 - 2.3 mg/dL) 1.6 Iron (49 - 181 ug/dL) < 10 L TIBC (261 - 462 ug/dL) 126 L Ferritin (17.9 - 464 ng/mL) Pending Total Bilirubin (0.2 - 1.3 mg/dL) 5.1 H AST (17 - 59 U/L) 34 ALT (21 - 72 U/L) 32 Lactate Dehydrogenase (313 - 618 U/L) 647 H Albumin (3.5 - 5.0 g/dL) 1.9 L Hematology CBC w Diff MAN DIFF ORDERED WBC (4.8 - 10.8 /CUMM) 22.8 H RBC (4.70 - 6.10 /CUMM) 2.52 L Hgb (14.0 - 18.0 G/DL) 7.1 *L Hct (42 - 52 %) 20.8 L MCV (80.0 - 94.0 FL) 82.4 MCH (27.0 - 31.0 PG) 28.0 RDW (11.5 - 14.5 %) 14.7 H Plt Count (130 - 400 /CUMM) 477 H MPV (7.4 - 10.4 FL) 9.5 Gran % (42.2 - 75.2 %) 87.1 H Lymphocytes % (20.5 - 51.1 %) 6.6 L Monocytes % (1.7 - 9.3 %) 5.4 Eosinophils % (0 - 5 %) 0.7 Basophils % (0.0 - 2.0 %) 0.2 Absolute Granulocytes (1.4 - 6.5 /CUMM) 19.9 H Segmented Neutrophils (42.2 - 75.2 %) 90 H Absolute Lymphocytes (1.2 - 3.4 /CUMM) 1.5 Lymphocytes (20.5 - 51.1 %) 6 L Monocytes (1.7 - 9.3 %) 4 Absolute Monocytes (0.10 - 0.60 /CUMM) 1.2 H Absolute Eosinophils (0.0 - 0.7 /CUMM) 0.2 Absolute Basophils (0.0 - 0.2 /CUMM) 0 Platelet Estimate (ADEQUATE) INCREASED Polychromasia 1+ Poikilocytosis 2+ Ovalocytes 1+ Stomatocytes 1+ PUBS MCHC (33.0 - 37.0 G/DL) 34.0 Other Body Source Fld Total RBCs Counted (%) 100 Urines Urine Color (YEL,AMB,STR) YEL Urine Clarity (CLEAR) HAZY H Urine pH (5.0 - 8.0) 6.0 Ur Specific [place] (1.001 - 1.035) 1.010 Urine Protein (NEG,<30 MG/DL) NEG Urine Ketones (NEG) NEG Urine Nitrite (NEG) NEG Urine Bilirubin (NEG) POS@ICTO H Urine Urobilinogen (0.1 - 1.0 EU/dl) 0.2 Ur Leukocyte Esterase (NEG) NEG Ur Microscopic SEDIMENT EXAMINED Urine RBC (0 - 5 /HPF) 50-75 H Urine WBC (0 - 2 /HPF) RARE Ur Epithelial Cells (NONE,FEW) OCCAS Hyaline Casts (0/LPF) FEW H Granular Casts (NONE /LPF) MANY H Urine Hemoglobin (NEG) LARGE H Urine Glucose (N MG/DL) NEG Last 24 Hours of [place] Results: Blood cultures 2 December 21 negative Urine culture December 21 negative Sputum culture December 21 no growth with gram stain revealing many white blood cells and few gram-positive cocci Stool C. difficile December 21 pending Recent Imaging Studies: Right upper quadrant ultrasound December 21 no gallbladder wall thickening or cholelithiasis Assessment/Plan Impression: Persistent fevers and leukocytosis despite Meropenem and Fluconazole now 10 days status post repeat laparotomy for drainage of intraperitoneal abscesses and 20 days status post his initial Kirkland's procedure for peritonitis secondary to a perforated viscus, with repeat cultures negative so far and with no obvious new focus of infection. He does have liquid stool in the colostomy and C. difficile is pending. His bilirubin continues to increase, but his recent right upper quadrant ultrasound was unremarkable, and this may be secondary to TPN. A residual intra-abdominal infection/abscess must be considered and a repeat CT scan is pending. The previous CT scan did demonstrate bilateral pleural effusions, which most likely represent fluid overload, but if they persist, repeat cultures remain negative and there is no other focus of infection on the CT scan a thoracentesis may need to be considered. Suggestion: 1. Follow-up CT of the chest, abdomen and pelvis 2. Follow-up stool for C. difficile 3. Further evaluation for example thoracentesis, depending on above results, as noted above 4. Continue Meropenem and Fluconazole pending above
--- NOTE | 2016-12-22 11:24 | NUR ---
@1000-THIS RN TRANSPORTED WITH RT TO CT SCAN FOR CT OF ABD/PELVIS/CHEST AND HEAD SINUSES. PT PATRICK WELL. ASSISTED BACK TO BED TO COMFORTABLE POSITION. BAKERY DECORATOR AT BEDSIDE TO ASSESS SMALL BLISTER TO L BUTTOCKS. IV DIFLUCAN INFUSING AT THIS TIME. PT TO RECIEVE 1 UNIT PRBC.
--- NOTE | 2016-12-22 11:26 | NUR ---
@0800-PT DROWSY/AROUS. NOT FOLLOWING COMMANDS AT THIS TIME. BILAT WRIST IN PLACE FOR SAFETY OF ETT. #7 PORTEX TRACH, SMALL AMT OF BLODDY DRAINAGE NOTED-AREA CLEANSED-INNER CANNULA PLACED AND NEW DSG APPLIED. COARSE BS AND WHEEZE AUSCULTATED. NEBS Q4HRS. O2SAT 93-95%. NSR HR 90S-110. BP 90S. R NGT TO LWS-GREEN DRAINGAGE NOTED. ANN IN PLACE WITH CLOUDY ORANGE URINE WITH SEDIMENT NOTED. COLOSTOMY WITH LIQ BROWN DRAINAGE NOTED. ANN IN PLACE, ADEQUATE OUTPUT. COLOR JAUNDICE. DSG TO MIDLINE ABD SURG\COURTNEY-CDI. EDEMA IMPROVED TO BLE. MULTIPODUS BOOTS PLACED BACK ON BLE. TPN AND LIPIDS CONT. 1 GM MAG FINISHING TO INFUSE AT THIS TIME. CONT TO MONITOR CLOSELY. FAMILY AT BEDSIDE AND UPDATED.
--- NOTE | 2016-12-22 11:31 | CT SCAN REPORT ---
EXAMINATION: CT SINUS WITH IV CONTRAST CLINICAL INFORMATION: Intubated, now with tracheostomy, rule out infectious process/abscess COMPARISON: Head CT 12/09/2016 TECHNIQUE: 94 mL Optiray 320 IV contrast was administered. Multidetector helical imaging was performed through the facial bones. Coronal and sagittal reformatted images were created at the technologist workstation. DLP: 562.43 mGy-cm. FINDINGS: There is moderate opacification of the bilateral frontal sinuses. There is extensive opacification of the ethmoid air cells bilaterally. There is near complete opacification of the bilateral sphenoid sinuses. There is moderate mucosal thickening of bilateral maxillary sinuses. Appearance is worsened throughout the paranasal sinuses in comparison to 12/09/2016, and this may reflect sinusitis. There is partial opacification of the right mastoid air cells and near complete opacification of the left mastoid air cells. The middle ear cavities are also partially opacified bilaterally. These findings also appear worsened from 12/09/2016. The lamina papyracea appear intact. No findings to suggest orbital cellulitis. The globes are intact bilaterally. Included portions of the brain parenchyma appear unremarkable. Temporomandibular joint alignment appears anatomic bilaterally. IMPRESSION: 1. Moderate to extensive opacification throughout the paranasal sinuses, worsened from 12/09/2016. Appearance may reflect acute sinusitis. 2. Increased opacification of the bilateral mastoid air cells, left greater than right. Middle ear cavities are also partially opacified. Mastoiditis may be considered in the proper clinical setting. 3. No soft tissue abscess identified.
--- NOTE | 2016-12-22 11:58 | CT SCAN REPORT ---
EXAMINATION: CT CHEST WITH CONTRAST CLINICAL INFORMATION: Respiratory failure on a ventilator status post tracheostomy. Evaluate for focus of infection. COMPARISON: 12/17/2016. TECHNIQUE: Multidetector volumetric CT imaging of the chest was obtained after the administration of 94 mL of Optiray 320 intravenous contrast without immediate adverse reactions. Axial MIP volume rendering provided. Sagittal and coronal reformatted images were obtained. DLP: 1421 mGy-cm. CHEST: HIDE SPREADER: Tracheostomy tube, enteric tube, post surgical skin clips along the midline or paramedian incision with an ostomy overlying the left lower quadrant. LUNGS AND PLEURAL SPACES: Small right and moderate left bilateral effusions have increased, left side slightly greater than right. Fluid is low-density consistent with transudative effusion. Fluid extends along the major fissures more on the left than the right. There is mild/moderate associated lower lobe atelectasis which has also increased in the interval. No definitive consolidated infiltrate is identified. There is a densely calcified nodule in the left lower lobe consistent with previous granulomatous exposure. Underlying mild emphysematous changes are again noted. Central airways are widely patent. MEDIASTINUM: There is no evidence of lower cervical, mediastinal, or hilar adenopathy. Ascending aortic ectasia/aneurysm again noted. A left-sided PICC line is identified with its tip at the SVC right atrial junction. Tracheostomy tube appears to be in satisfactory position with its tip approximately 6 cm proximal to the fernando. An enteric tube traverses the esophagus and into the fundus of the stomach. CHEST WALL/AXILLA: Unremarkable. ABDOMEN/PELVIS: LIVER, GALLBLADDER, BILIARY TREE: Unremarkable. PANCREAS: Unremarkable. SPLEEN: Unremarkable. There is a small amount of free fluid surrounding the spleen. This is unchanged compared with the previous exam. ADRENAL GLANDS AND KIDNEYS: Unremarkable. URETERS AND BLADDER: Urinary bladder contains a Edward catheter and air. The air is likely iatrogenic. Ureters are nondilated. BOWEL LOOPS: Patient is status post a partial left colectomy with a descending colostomy exiting the anterior abdominal wall in the left lower quadrant without evidence of a parastomal hernia. Kirkland's pouch appears unremarkable with a rectal tube in place. There is a small amount of intraperitoneal free fluid in the deep pelvis extending into a left inguinal hernia which appears to extend into the left paracolic gutter superiorly which also contains a small amount of fluid. This is unlikely to represent a loop of bowel based on coronal and sagittal reconstructions. Multiple distended loops of large and small bowel appear slightly increased compared to the previous examination most consistent with a persisting ileus. Obstruction is less likely, although transition from dilated to collapsed bowel is suggested on axial image 74 of series 2 just anterior to the left kidney. Distention is slightly increased, pattern is otherwise unchanged from the prior exam. There is mild mural thickening versus underdistention of the proximal descending colon just proximal to the anastomosis. LYMPHOVASCULAR STRUCTURES: No adenopathy. Extensive atherosclerotic aortic changes without aneurysmal dilatation. PERITONEAL CAVITY: A small amount of intraperitoneal free air is identified extending extending from air along the ventral incision. The intraperitoneal air is new compared with the previous exam, air along the incision has increased in the interval. Clinical correlation for a developing infection along this incision is recommended although no real surrounding stranding is identified in the anterior abdominal wall, is the wound closing by secondary intention? No developing fluid collection is identified to suggest an abscess. PELVIC VISCERA: Prostate is mildly enlarged, Edward catheter is in the bladder. Moderate amount of air in the urinary bladder thought to be iatrogenic, this has also increased in the interval. ANTERIOR ABDOMINAL WALL: Ventral incision with air along the incision extending into the peritoneal cavity on today's exam. Clinical correlation recommended. Diffuse anasarca appears somewhat improved. BONES: There is a mild compression deformity of the L1 vertebral body unchanged. Mild anterior compression of the T11 vertebral body is unchanged from the most recent exam, however is new from 12/23/2015. No other sclerotic lesions are identified to suggest metastatic disease. IMPRESSION: 1. Increasing bilateral pleural effusions with underlying atelectasis. 2. Tracheostomy tube, a left PICC line, and enteric tubes appear in satisfactory position. 3. A small amount of intraperitoneal free air and fluid is noted which extends into the patient's left inguinal hernia. 4. Free air is new appears to communicate with an increasing amount of air along the patient's ventral incision. 5. Evolving ileus versus developing small bowel obstruction. Please see discussion above. Clinical correlation recommended. 6. No focal abscess is identified. 7. Mild thickening versus underdistention of the proximal descending colon. 8. T11 and L1 compression deformities are again noted.
--- NOTE | 2016-12-22 13:01 | Event Note ---
Event Note Event Note: Called to the patients bedside at approxiately 1245. After approximately 30 minutes of PRBC transfusion, the patient began to have some nausea with dry heaving. Prior to the transfusion, he did have a fever of 101 for which he was given tylenol. He was also given 1mg of ativan for agitation. He was subsequently given zofran for his nausea, but it was noted that he was quite diaphoretic and his O2 sats dropped to the mid-high 80s on the ventilator @35% FiO2. BP measurement revealed he was 87/doppler. His FiO2 was increased to 45% and his transfusion was d/c and he was bolused 500cc. A transfusion reaction was ordered and the lab contacted. We will remeasure CBC in 30-60 mins and continue to assess the patient. No rash or hives were identified on examination.
--- NOTE | 2016-12-22 13:06 | NUR ---
@1210-BLOOD TRANSFUSION STARTED TO INFUSE AT THIS TIME. TEMP AT 1100 101-TYLENOL ADMINISTERED. TEMP AT THIS TIME OF TRANSFUSION 100.1. BP STABLE. @1240-TEMP 99.9, BP HYPOTENSIVE 78/DOPP. PT DIAPHORETIC, CHEEKS FLUSHED AND NOTED TO DRY HEAVE-ZOFRAN ADMINSITERED. PT ALSO STARTED TO DESAT ON 35% TO 87%. FIO2 INCREASED TO 45% BY RT. 500ML NS BOLUS STARTED. BLOOD TRANSFUSION STOPPED AT THIS TIME AND TRANSFUSION REACTION PROTOCOL IN PLACE. PINK/LAV BLOOD TUBES DRAWN AND SENT TO LAB WITH REMAINING BLOOD PRODDUCT. WILL SEND URINE SPECIMEN WHEN URINE AVAIL IN ANN. @1300-BP IMPROVED TO 90/DOPP. CONT TO MONITOR-FAMILY AT BEDSIDE AND UPDATED.
--- NOTE | 2016-12-22 14:15 | NUR ---
@1400-NGT REMOVED AT THIS TIME PER ORDER OF DR SCHULTE DUE TO SINUSITIS. PT RESTING COMF AT THIS TIME. 500ML NS BOLUS COMPLETE. BP 90/DOPP. FAMILY AT BEDSIDE.
[2016-12-22 15:00] LABS: ABSOLUTE BASOPHIL COUNT 0 /CUMM (0.0-0.2); ABSOLUTE EOSINOPHIL COUNT 0.1 /CUMM (0.0-0.7); ABSOLUTE GRANULOCYTE CT 21.2 /CUMM (1.4-6.5); ABSOLUTE LYMPH COUNT 1.2 /CUMM (1.2-3.4); ABSOLUTE MONOCYTE COUNT 1.3 /CUMM (0.10-0.60); BASOPHIL % 0.2 % (0.0-2.0); EOSINOPHIL % 0.4 % (0-5); HEMATOCRIT 20.9 % (42-52); MEAN CORPUSCULAR HGB 28.4 PG (27.0-31.0); MEAN CORPUSCULAR HGB CONC 34.3 G/DL (33.0-37.0); MEAN CORPUSCULAR VOLUME 82.9 FL (80.0-94.0); MEAN PLATELET VOLUME 9.1 FL (7.4-10.4); PLATELET COUNT 477 /CUMM (130-400); RBC DISTRIBUTION WIDTH 15.4 % (11.5-14.5); RED BLOOD CELL CT 2.52 /CUMM (4.70-6.10); WHITE BLOOD CELL COUNT 23.8 /CUMM (4.8-10.8)
--- NOTE | 2016-12-22 15:05 | NUR ---
wound care: requested by nursing staff to evaluate pt for new area of skin breakdown noted to left buttocks - s/p recent sx for trach placement - pt presents with a 2 x 0.4 cm clear serous filled bullous to left buttocks - periwound unremarkable - non drng - no evidence of infection noted - currently on group 2 mattress - impression: stage 2 pressure injury left buttocks recommendation: apply moisture barrier qs and prn - sidelying position wib - if deterioration develops, consider hydrcolloid dressing please and dietary eval
[2016-12-22 16:00] VITALS: BP 100/50
--- NOTE | 2016-12-22 16:40 | NUR ---
@1600-ULTRASOUND AT BEDSIDE FOR POSSIBLE THORACENTESIS. UPON SITTING PT TO FOWLERS POSITION, PT NOTED TO HAVE ORAL DRAINAGE FROM MOUTH. OGT PLACED AT THIS TIME TO LWS. CONFIRMATION CXR TO BE DONE AFTER THORACENTESIS COMPLETE. @1615-DR NICHOLSON AT BEDSIDE FOR THORACENTESIS-OBTAINED 500ML DRAINAGE, LABS SENT ORD BY IR TEAM. PT PATRICK PROCEDURE WELL. VSS. AFEBRILE. CONT TO MONITOR CLOSELY.
--- NOTE | 2016-12-22 17:26 | ULTRASOUND REPORT ---
PROCEDURE: Thoracentesis CLINICAL INFORMATION: Pleural Effusion COMPARISON: Chest CT same day at 10:00 AM TECHNIQUE: Indirect ultrasound guided thoracentesis using a 5 [place] Yueh catheter. Procedure needed to be performed within the ICU. FINDINGS: Informed consent was obtained from the patient's daughter prior to the procedure. During this process, the procedure alternatives were explained, along with the intended outcome and benefits. The risks of the procedure, as well as the risk of not doing the procedure, was discussed. The patient's daughter was given the opportunity to ask questions regarding the procedure and appeared competent to make medical decisions. A signed consent form which documents this discussion was placed in the medical record. A timeout procedure was performed. Ultrasound evaluation of the chest for pleural fluid was performed. A small to moderate left-sided pleural effusion is noted . Using standard interventional and sterile techniques, lidocaine was used to anesthetize the region. A 5 [place] Yueh catheter was introduced into the left pleural fluid using standard safety needle technique. Approximately 500 mL of light yellow fluid was removed into the Vacutainer bottles. The catheter was then removed. Good hemostasis was achieved. The patient tolerated the procedure well. A sterile dressing was placed. Patient scheduled for post procedure followup x-ray. COMPLICATIONS: None. IMPRESSION: Successful ultrasound-guided thoracentesis of 500 mL of fluid.
--- NOTE | 2016-12-22 17:38 | RADIOLOGY REPORT ---
EXAMINATION: XR PORTABLE CHEST CLINICAL INFORMATION: Status post thoracentesis. Evaluate for pneumothorax. COMPARISON: Chest x-ray 12/21/2016. CT chest 12/22/2016. TECHNIQUE: Portable view of the chest was obtained. FINDINGS: Single AP view of the chest demonstrates pulmonary hypoinflation. There has been interval improved aeration of the left lung base. No pneumothoraces are identified. Cardiomediastinal contours are stable. Redemonstrated is a tracheostomy tube which appears appropriately positioned. An enteric catheter descends below the level of the diaphragm and terminates within the gastric fundus. IMPRESSION: Interval improved aeration of the left lung base. No pneumothoraces. Stable positioning of the endotracheal tube. An enteric catheter descends below the level of the diaphragm and terminates within the gastric fundus.
[2016-12-23] VITALS: BP 108/68
[2016-12-23 00:05] LABS: ABSOLUTE BASOPHIL COUNT 0 /CUMM (0.0-0.2); ABSOLUTE EOSINOPHIL COUNT 0.1 /CUMM (0.0-0.7); ABSOLUTE LYMPH COUNT 1.2 /CUMM (1.2-3.4); ABSOLUTE MONOCYTE COUNT 1.4 /CUMM (0.10-0.60); BASOPHIL % 0.1 % (0.0-2.0); EOSINOPHIL % 0.3 % (0-5); GRANULOCYTE % 88.6 % (42.2-75.2); HEMATOCRIT 24.5 % (42-52); MEAN CORPUSCULAR HGB 27.9 PG (27.0-31.0); MEAN CORPUSCULAR HGB CONC 33.8 G/DL (33.0-37.0); MEAN CORPUSCULAR VOLUME 82.6 FL (80.0-94.0); MEAN PLATELET VOLUME 9.3 FL (7.4-10.4); PLATELET COUNT 515 /CUMM (130-400); RBC DISTRIBUTION WIDTH 14.9 % (11.5-14.5); RED BLOOD CELL CT 2.96 /CUMM (4.70-6.10); WHITE BLOOD CELL COUNT 23.7 /CUMM (4.8-10.8)
[2016-12-23 00:09] LABS: PT 15.3 SEC (9.4-12.5)
[2016-12-23 00:10] LABS: PTT 33 SEC (25-37)
--- NOTE | 2016-12-23 01:13 | NUR ---
@2300 NOTIFIED MD CLARISSA ZARATE OF NEW HEMATURIA VIA ANN, NO OTHER OVERT SIGNS OF BLEEDING NOTED. PT WITH TEMP OF 101.4, IAP DONE 21. PER MD WILL CHECK CBC, PT, INR. MEDICATED WITH TYLENOL PER EMAR FOR FEVER AND PLACED ICE PACK TO GROIN ARMPIT. WILL CONTINUE TO MONITOR.
--- NOTE | 2016-12-23 03:28 | NUR ---
PT URINE OUTPUT FOR PAST 2 HOURS 15ML, LESS HEMATURIA NOTED. NOTIFIED MD ROSENBERG HULUR #[id number]. NO INTERVENTIONS ORDERED AT THIS TIME.
[2016-12-23 05:12] LABS: ABSOLUTE BASOPHIL COUNT 0.1 /CUMM (0.0-0.2); ABSOLUTE EOSINOPHIL COUNT 0.1 /CUMM (0.0-0.7); ABSOLUTE GRANULOCYTE CT 20.4 /CUMM (1.4-6.5); ABSOLUTE LYMPH COUNT 0.8 /CUMM (1.2-3.4); ABSOLUTE MONOCYTE COUNT 1.3 /CUMM (0.10-0.60); BASOPHIL % 0.4 % (0.0-2.0); EOSINOPHIL % 0.4 % (0-5); GRANULOCYTE % 89.6 % (42.2-75.2); HEMATOCRIT 21.9 % (42-52); MEAN CORPUSCULAR HGB CONC 34.6 G/DL (33.0-37.0); MEAN CORPUSCULAR VOLUME 83.9 FL (80.0-94.0); MEAN PLATELET VOLUME 9.5 FL (7.4-10.4); PLATELET COUNT 465 /CUMM (130-400); RBC DISTRIBUTION WIDTH 14.9 % (11.5-14.5); RED BLOOD CELL CT 2.61 /CUMM (4.70-6.10); WHITE BLOOD CELL COUNT 22.7 /CUMM (4.8-10.8)
--- NOTE | 2016-12-23 05:54 | PN- General Surgery ---
See Addendum Subjective Subjective: Post op day #1 s/p tracheostomy. Patient maintained good O2 sats on ventilator. contuinues to spoke fevers which respond to tylenol. No new issues. Patient opens eyes to stimulation. Remains in soft restraints. Objective Vital Signs and I&Os Vital Signs Date Time Temp Pulse Resp B/P Pulse O2 O2 Flow FiO2 Ox Delivery Rate 12/23 0540 40 12/23 0400 97 Ventilator 40% 12/23 0314 40 12/23 0023 100.7 12/23 0010 40 12/23 0000 96 Ventilator 40% 12/23 0000 100.7 106 24 108/68 96 Ventilator 40% 12/22 2256 101.4 12/22 2203 40 12/22 2000 98 Ventilator 40% 12/22 1846 40 12/22 1600 98.0 90 16 100/50 96 Ventilator 40% 12/22 1600 96 Ventilator 40% 12/22 1550 40 12/22 1315 45 12/22 1218 100.1 12/22 1200 95 Ventilator 45% 12/22 1117 101.0 12/22 1044 35 12/22 0800 99.8 100 24 100/60 93 Ventilator 35% 12/22 0800 93 Ventilator 35% 12/22 0749 35 Intake & Output 12/23 0800 12/23 0000 12/22 1600 12/22 0800 12/22 0000 12/21 1600 Intake Total 1105.2 1300.0 796.0 1489.0 1294.0 Output Total 675 1180 754 235 6340 Balance 430.2 120.0 201.0 559.0 -556.0 Intake, Blood 393 80 Product Intake, IV 78 501 176 740 532 Intake, Lipid 72.3 119.0 112.0 135.0 125.0 Intake, Oral 0 0 60 Intake, Other 60 Intake, 561.9 540 508 614 577 TPN/PPN Output, 50 250 150 200 120 Gastric Drainage Output, Stool 25 30 0 0 30 Output, Urine 600 900 930 497 4920 Patient 218 lb 213 lb Weight Physical Exam: Physical Exam: General: intubated, opens eyes Neck: tracheostomy tube in place, patent. Small blood spotting on dressing on left side, otherwise c/d/i. Chest: Good air movement on ventilator. RRR. Abdomen: soft, distended. Stoma pink and viable. Small amount of brown mucous output. NG tube in place with bilious output. Ext: No calve swelling Results Last 48 Hours of Labs: Laboratory Tests 12/23 12/22 0420 2351 Chemistry Sodium (137 - 145 mmol/L) 138 Potassium (3.5 - 5.1 mmol/L) 4.3 Chloride (98 - 107 mmol/L) 97 L Carbon Dioxide (22 - 30 mmol/L) 32 H Anion Gap (5 - 16) 9 BUN (9 - 20 mg/dL) 40 H Creatinine (0.7 - 1.2 mg/dL) 1.2 Estimated GFR (>60 ml/min) 57 L Glucose (65 - 99 mg/dL) 181 H Calcium (8.4 - 10.2 mg/dL) 7.2 L Phosphorus (2.5 - 4.5 mg/dL) 5.1 H Magnesium (1.6 - 2.3 mg/dL) 2.0 Total Bilirubin (0.2 - 1.3 mg/dL) 7.7 H AST (17 - 59 U/L) 33 ALT (21 - 72 U/L) 29 Albumin (3.5 - 5.0 g/dL) 1.9 L Coagulation PT (9.4 - 12.5 SEC) 15.3 H INR (0.90 - 1.17) 1.46 H APTT (25 - 37 SEC) 33 Hematology CBC w Diff MAN DIFF ORDERED MAN DIFF ORDERED WBC (4.8 - 10.8 /CUMM) 22.7 H 23.7 H RBC (4.70 - 6.10 /CUMM) 2.61 L 2.96 L Hgb (14.0 - 18.0 G/DL) 7.6 L 8.3 L Hct (42 - 52 %) 21.9 L 24.5 L MCV (80.0 - 94.0 FL) 83.9 82.6 MCH (27.0 - 31.0 PG) 29.0 27.9 RDW (11.5 - 14.5 %) 14.9 H 14.9 H Plt Count (130 - 400 /CUMM) 465 H 515 H MPV (7.4 - 10.4 FL) 9.5 9.3 Gran % (42.2 - 75.2 %) 89.6 H 88.6 H Lymphocytes % (20.5 - 51.1 %) 3.7 L 5.1 L Monocytes % (1.7 - 9.3 %) 5.9 5.9 Eosinophils % (0 - 5 %) 0.4 0.3 Basophils % (0.0 - 2.0 %) 0.4 0.1 Absolute Granulocytes (1.4 - 6.5 /CUMM) 20.4 H 21.0 H Segmented Neutrophils (42.2 - 75.2 %) 95 H 93 H Band Neutrophils (0.0 - 5.0 %) 2 Absolute Lymphocytes (1.2 - 3.4 /CUMM) 0.8 L 1.2 Lymphocytes (20.5 - 51.1 %) 2 L 5 L Monocytes (1.7 - 9.3 %) 1 L 2 Absolute Monocytes (0.10 - 0.60 /CUMM) 1.3 H 1.4 H Absolute Eosinophils (0.0 - 0.7 /CUMM) 0.1 0.1 Absolute Basophils (0.0 - 0.2 /CUMM) 0.1 0 Platelet Estimate (ADEQUATE) INCREASED INCREASED Polychromasia 1+ 1+ Poikilocytosis 2+ 1+ Basophilic Stippling 1+ Ovalocytes 1+ 1+ Stomatocytes 1+ FEW PUBS MCHC (33.0 - 37.0 G/DL) 34.6 33.8 Other Body Source Fld Total RBCs Counted (%) 100 100 12/22 12/22 12/22 12/22 2234 1700 1630 1622 Chemistry Lactate Dehydrogenase Cancelled Hematology CBC w Diff Cancelled WBC Cancelled RBC Cancelled Hgb Cancelled Hct Cancelled MCV Cancelled MCH Cancelled RDW Cancelled Plt Count Cancelled MPV Cancelled PUBS MCHC Cancelled Miscellaneous Phlebotomy Draw Site L THORACENTESIS Other Body Source Fluid WBC (0 - 5 /CUMM) 518 H Fld Total RBCs Counted (0 /CUMM) 475 H Pleural pH (PH) 7.36 12/22 12/22 12/22 1622 1439 0500 Hematology CBC w Diff MAN DIFF ORDERED WBC (4.8 - 10.8 /CUMM) 23.8 H RBC (4.70 - 6.10 /CUMM) 2.52 L Hgb (14.0 - 18.0 G/DL) 7.2 *L Hct (42 - 52 %) 20.9 L MCV (80.0 - 94.0 FL) 82.9 MCH (27.0 - 31.0 PG) 28.4 RDW (11.5 - 14.5 %) 15.4 H Plt Count (130 - 400 /CUMM) 477 H MPV (7.4 - 10.4 FL) 9.1 Gran % (42.2 - 75.2 %) 89.0 H Lymphocytes % (20.5 - 51.1 %) 4.9 L Monocytes % (1.7 - 9.3 %) 5.5 Eosinophils % (0 - 5 %) 0.4 Basophils % (0.0 - 2.0 %) 0.2 Absolute Granulocytes (1.4 - 6.5 /CUMM) 21.2 H Segmented Neutrophils (42.2 - 75.2 %) 79 H Band Neutrophils (0.0 - 5.0 %) 13 H Absolute Lymphocytes (1.2 - 3.4 /CUMM) 1.2 Lymphocytes (%) 38 4 L Monocytes (1.7 - 9.3 %) 2 Absolute Monocytes (0.10 - 0.60 /CUMM) 1.3 H Absolute Eosinophils (0.0 - 0.7 /CUMM) 0.1 Basophils (0.0 - 2.0 %) 1 Absolute Basophils (0.0 - 0.2 /CUMM) 0 Metamyelocytes (0.0 - 1.0 %) 1 % Normal PMNs (%) 52 Platelet Estimate (ADEQUATE) INCREASED Polychromasia 1+ Hypochromic-Microcytic 1+ Basophilic Stippling RARE Stomatocytes 2+ PUBS MCHC (33.0 - 37.0 G/DL) 34.3 Haptoglobin Pending [facility] [place] [facility] (%) Other Body Source Fld Total RBCs Counted (%) 100 Fluid Glucose (mg/dL) 179 Fluid Total Protein (g/dL) 3.8 Fluid Albumin (g/dL) 1.3 Fluid LDH (U/L) 1144 Fluid Amylase (U/L) 47 12/22 12/21 0420 1630 Chemistry Sodium (137 - 145 mmol/L) 136 L Potassium (3.5 - 5.1 mmol/L) 4.3 Chloride (98 - 107 mmol/L) 95 L Carbon Dioxide (22 - 30 mmol/L) 32 H Anion Gap (5 - 16) 8 BUN (9 - 20 mg/dL) 33 H Creatinine (0.7 - 1.2 mg/dL) 1.1 Estimated GFR (>60 ml/min) > 60 Glucose (65 - 99 mg/dL) 171 H Calcium (8.4 - 10.2 mg/dL) 7.1 L Phosphorus (2.5 - 4.5 mg/dL) 5.2 H Magnesium (1.6 - 2.3 mg/dL) 1.6 Iron (49 - 181 ug/dL) < 10 L TIBC (261 - 462 ug/dL) 126 L Ferritin (17.9 - 464 ng/mL) 1260.0 H Total Bilirubin (0.2 - 1.3 mg/dL) 5.1 H AST (17 - 59 U/L) 34 ALT (21 - 72 U/L) 32 Lactate Dehydrogenase (313 - 618 U/L) 647 H Total Protein (6.3 - 8.2 g/dL) 6.4 Albumin (3.5 - 5.0 g/dL) 1.9 L Hematology CBC w Diff MAN DIFF ORDERED WBC (4.8 - 10.8 /CUMM) 22.8 H RBC (4.70 - 6.10 /CUMM) 2.52 L Hgb (14.0 - 18.0 G/DL) 7.1 *L Hct (42 - 52 %) 20.8 L MCV (80.0 - 94.0 FL) 82.4 MCH (27.0 - 31.0 PG) 28.0 RDW (11.5 - 14.5 %) 14.7 H Plt Count (130 - 400 /CUMM) 477 H MPV (7.4 - 10.4 FL) 9.5 Gran % (42.2 - 75.2 %) 87.1 H Lymphocytes % (20.5 - 51.1 %) 6.6 L Monocytes % (1.7 - 9.3 %) 5.4 Eosinophils % (0 - 5 %) 0.7 Basophils % (0.0 - 2.0 %) 0.2 Absolute Granulocytes (1.4 - 6.5 /CUMM) 19.9 H Segmented Neutrophils (42.2 - 75.2 %) 90 H Absolute Lymphocytes (1.2 - 3.4 /CUMM) 1.5 Lymphocytes (20.5 - 51.1 %) 6 L Monocytes (1.7 - 9.3 %) 4 Absolute Monocytes (0.10 - 0.60 /CUMM) 1.2 H Absolute Eosinophils (0.0 - 0.7 /CUMM) 0.2 Absolute Basophils (0.0 - 0.2 /CUMM) 0 Platelet Estimate (ADEQUATE) INCREASED Polychromasia 1+ Poikilocytosis 2+ Ovalocytes 1+ Stomatocytes 1+ PUBS MCHC (33.0 - 37.0 G/DL) 34.0 Other Body Source Fld Total RBCs Counted (%) 100 Urines Urine Color (YEL,AMB,STR) YEL Urine Clarity (CLEAR) HAZY H Urine pH (5.0 - 8.0) 6.0 Ur Specific [place] (1.001 - 1.035) 1.010 Urine Protein (NEG,<30 MG/DL) NEG Urine Ketones (NEG) NEG Urine Nitrite (NEG) NEG Urine Bilirubin (NEG) POS@ICTO H Urine Urobilinogen (0.1 - 1.0 EU/dl) 0.2 Ur Leukocyte Esterase (NEG) NEG Ur Microscopic SEDIMENT EXAMINED Urine RBC (0 - 5 /HPF) 50-75 H Urine WBC (0 - 2 /HPF) RARE Ur Epithelial Cells (NONE,FEW) OCCAS Hyaline Casts (0/LPF) FEW H Granular Casts (NONE /LPF) MANY H Urine Hemoglobin (NEG) LARGE H Urine Glucose (N MG/DL) NEG Assessment/Plan Assessment/Plan Plan: -Keep nothing by mouth with NG tube. -Continue TPN for nutritional support. -Continue abx -Continue frequent abd dressing changes. -GI and DVT prophylaxis. -Pain control and sedation. -Continue use of tracheostomy, change dressing as needed. -Medical management per critical care team. -Will discuss with attending. Core Measures/Miscellaneous Edward Catheter Date In: 12/02/16 Venous Thromboembolism VTE Risk Factors: Acute medical illness, Age > 40, Surgery VTE Contraindications: No Contraindications VTE Prophylaxis Ordered Inpt Mech & Pharm VTE Diagnosis: No Beta Abelardo Is Beta Abelardo a Home Med? No Antibiotics Is Patient on Antibiotics? Yes If Yes: infection
--- NOTE | 2016-12-23 07:30 | PN- Resident CRCU ---
Subjective HPI/CRCU Issues: Patient was seen and examined. Patient is arousable to verbal and tactile stimulation. He is unable to provide any review of systems. Patient is ventilated through the tracheostomy. Patient is on fentanyl as 25 mcg/h. No sign of infection or bleeding around his IVs. Patient is jaundiced 24 Hour Events: * Tmax 101.4 * HR 106-91 * BP 87/58 at 17:00 was the lowest Objective Vital Signs & I&O Last 8 Hrs of Vitals and I&O: Intake & Output 12/23 1600 12/23 0800 12/23 0000 Intake Total 656.7 1105.2 Output Total 870 675 Balance -213.3 430.2 Intake, Blood 393 Product Intake, IV 107.6 78 Intake, Lipid 72.3 Intake, Oral 0 0 Intake, 549.1 561.9 TPN/PPN Output, 450 50 Gastric Drainage Output, Stool 20 25 Output, Urine 400 600 Laboratory Tests 12/23 12/23 0948 0420 Chemistry Sodium (137 - 145 mmol/L) 138 Potassium (3.5 - 5.1 mmol/L) 4.3 Chloride (98 - 107 mmol/L) 97 L Carbon Dioxide (22 - 30 mmol/L) 32 H Anion Gap (5 - 16) 9 BUN (9 - 20 mg/dL) 40 H Creatinine (0.7 - 1.2 mg/dL) 1.2 Estimated GFR (>60 ml/min) 57 L Glucose (65 - 99 mg/dL) 181 H Calcium (8.4 - 10.2 mg/dL) 7.2 L Phosphorus (2.5 - 4.5 mg/dL) 5.1 H Magnesium (1.6 - 2.3 mg/dL) 2.0 Total Bilirubin (0.2 - 1.3 mg/dL) 7.7 H Direct Bilirubin (< 0.4 mg/dL) 6.7 H AST (17 - 59 U/L) 33 ALT (21 - 72 U/L) 29 Lactate Dehydrogenase Pending Albumin (3.5 - 5.0 g/dL) 1.9 L Amylase (30 - 110 U/L) 57 Lipase (23 - 300 U/L) 219 Hematology CBC w Diff MAN DIFF ORDERED WBC (4.8 - 10.8 /CUMM) 22.7 H RBC (4.70 - 6.10 /CUMM) 2.61 L Hgb (14.0 - 18.0 G/DL) 7.6 L Hct (42 - 52 %) 21.9 L MCV (80.0 - 94.0 FL) 83.9 MCH (27.0 - 31.0 PG) 29.0 RDW (11.5 - 14.5 %) 14.9 H Plt Count (130 - 400 /CUMM) 465 H MPV (7.4 - 10.4 FL) 9.5 Gran % (42.2 - 75.2 %) 89.6 H Lymphocytes % (20.5 - 51.1 %) 3.7 L Monocytes % (1.7 - 9.3 %) 5.9 Eosinophils % (0 - 5 %) 0.4 Basophils % (0.0 - 2.0 %) 0.4 Absolute Granulocytes (1.4 - 6.5 /CUMM) 20.4 H Segmented Neutrophils (42.2 - 75.2 %) 95 H Band Neutrophils (0.0 - 5.0 %) 2 Absolute Lymphocytes (1.2 - 3.4 /CUMM) 0.8 L Lymphocytes (20.5 - 51.1 %) 2 L Monocytes (1.7 - 9.3 %) 1 L Absolute Monocytes (0.10 - 0.60 /CUMM) 1.3 H Absolute Eosinophils (0.0 - 0.7 /CUMM) 0.1 Absolute Basophils (0.0 - 0.2 /CUMM) 0.1 Platelet Estimate (ADEQUATE) INCREASED Polychromasia 1+ Poikilocytosis 2+ Ovalocytes 1+ Stomatocytes 1+ PUBS MCHC (33.0 - 37.0 G/DL) 34.6 Retic Count Pending Other Body Source Fld Total RBCs Counted (%) 100 12/22 12/22 2351 2234 Chemistry Lactate Dehydrogenase Cancelled Coagulation PT (9.4 - 12.5 SEC) 15.3 H INR (0.90 - 1.17) 1.46 H APTT (25 - 37 SEC) 33 Hematology CBC w Diff MAN DIFF ORDERED WBC (4.8 - 10.8 /CUMM) 23.7 H RBC (4.70 - 6.10 /CUMM) 2.96 L Hgb (14.0 - 18.0 G/DL) 8.3 L Hct (42 - 52 %) 24.5 L MCV (80.0 - 94.0 FL) 82.6 MCH (27.0 - 31.0 PG) 27.9 RDW (11.5 - 14.5 %) 14.9 H Plt Count (130 - 400 /CUMM) 515 H MPV (7.4 - 10.4 FL) 9.3 Gran % (42.2 - 75.2 %) 88.6 H Lymphocytes % (20.5 - 51.1 %) 5.1 L Monocytes % (1.7 - 9.3 %) 5.9 Eosinophils % (0 - 5 %) 0.3 Basophils % (0.0 - 2.0 %) 0.1 Absolute Granulocytes (1.4 - 6.5 /CUMM) 21.0 H Segmented Neutrophils (42.2 - 75.2 %) 93 H Absolute Lymphocytes (1.2 - 3.4 /CUMM) 1.2 Lymphocytes (20.5 - 51.1 %) 5 L Monocytes (1.7 - 9.3 %) 2 Absolute Monocytes (0.10 - 0.60 /CUMM) 1.4 H Absolute Eosinophils (0.0 - 0.7 /CUMM) 0.1 Absolute Basophils (0.0 - 0.2 /CUMM) 0 Platelet Estimate (ADEQUATE) INCREASED Polychromasia 1+ Poikilocytosis 1+ Basophilic Stippling 1+ Ovalocytes 1+ Stomatocytes FEW PUBS MCHC (33.0 - 37.0 G/DL) 33.8 Other Body Source Fld Total RBCs Counted (%) 100 12/22 12/22 12/22 12/22 1700 1630 1622 1622 Hematology CBC w Diff Cancelled WBC Cancelled RBC Cancelled Hgb Cancelled Hct Cancelled MCV Cancelled MCH Cancelled RDW Cancelled Plt Count Cancelled MPV Cancelled Lymphocytes (%) 38 % Normal PMNs (%) 52 PUBS MCHC Cancelled Misc Hematology Test (%) Miscellaneous Phlebotomy Draw Site L THORACENTESIS Other Body Source Fluid WBC (0 - 5 /CUMM) 518 H Fld Total RBCs Counted (0 /CUMM) 475 H Fluid Glucose (mg/dL) 179 Fluid Total Protein (g/dL) 3.8 Fluid Albumin (g/dL) 1.3 Fluid LDH (U/L) 1144 Fluid Amylase (U/L) 47 Pleural pH (PH) 7.36 12/22 1439 Hematology CBC w Diff MAN DIFF ORDERED WBC (4.8 - 10.8 /CUMM) 23.8 H RBC (4.70 - 6.10 /CUMM) 2.52 L Hgb (14.0 - 18.0 G/DL) 7.2 *L Hct (42 - 52 %) 20.9 L MCV (80.0 - 94.0 FL) 82.9 MCH (27.0 - 31.0 PG) 28.4 RDW (11.5 - 14.5 %) 15.4 H Plt Count (130 - 400 /CUMM) 477 H MPV (7.4 - 10.4 FL) 9.1 Gran % (42.2 - 75.2 %) 89.0 H Lymphocytes % (20.5 - 51.1 %) 4.9 L Monocytes % (1.7 - 9.3 %) 5.5 Eosinophils % (0 - 5 %) 0.4 Basophils % (0.0 - 2.0 %) 0.2 Absolute Granulocytes (1.4 - 6.5 /CUMM) 21.2 H Segmented Neutrophils (42.2 - 75.2 %) 79 H Band Neutrophils (0.0 - 5.0 %) 13 H Absolute Lymphocytes (1.2 - 3.4 /CUMM) 1.2 Lymphocytes (20.5 - 51.1 %) 4 L Monocytes (1.7 - 9.3 %) 2 Absolute Monocytes (0.10 - 0.60 /CUMM) 1.3 H Absolute Eosinophils (0.0 - 0.7 /CUMM) 0.1 Basophils (0.0 - 2.0 %) 1 Absolute Basophils (0.0 - 0.2 /CUMM) 0 Metamyelocytes (0.0 - 1.0 %) 1 Platelet Estimate (ADEQUATE) INCREASED Polychromasia 1+ Hypochromic-Microcytic 1+ Basophilic Stippling RARE Stomatocytes 2+ PUBS MCHC (33.0 - 37.0 G/DL) 34.3 Other Body Source Fld Total RBCs Counted (%) 100 Exam General Appearance: sedated, intubated Head: atraumatic, normal appearance Respiratory: rhonchi over both lungs Cardiovascular: regular rate/rhythm Gastrointestinal: tenderness, distended, with surgical incision with clips placed Extremities: +1 lower extremity edema Weaning Parameters NIF: 42 Minute Volume: 13 Resp rate: 24 Vt: 520 Heart Rate: 107 Weaning Schedule Start Time: 0845 Minute Volume: 9.58 Resp Rate: 22 Vt: 518 Heart Rate: 106 End Time: 0848 Minute Volume: 12.1 Resp Rate: 47 Vt: 218 Heart Rate: 110 Current Medications: Current Medications Sig/Ar Start time Last Medication Dose Route Stop Time Status Admin Acetaminophen 640 MG Q4-6 PRN PRN 12/19 1430 AC 12/23 PO 0907 Albuterol Sulfate 3 ML EVERY 4 HRS/AWAKE 12/06 1600 AC 12/23 INH 1208 Fat Emulsion 375 [place] [address]012/21 1900 DC 12/21 Intravenous IV 12/22 185 1823 Fentanyl Citrate 1,000 MCG Q10H 12/21 0900 AC 12/23 Sodium Chloride 250 ML IV 0013 Fluconazole 400 MG DAILY 12/18 1000 AC 12/23 Sodium Chloride 200 ML IV 0907 Fluconazole 200 MG DAILY 12/18 1000 AC 12/23 Sodium Chloride 100 ML IV 1159 Furosemide 40 MG DAILY 12/20 1000 AC 12/23 IV 0906 Heparin Sodium 5,000 UNIT Q8 12/02 2200 AC 12/22 (Porcine) SC 1351 Ipratropium [place] 2.5 ML EVERY 4 HRS/AWAKE 12/06 1600 AC 12/23 INH 1208 Lorazepam 1 MG Q4P PRN 12/13 1715 AC 12/22 IV 1220 Meropenem 1 GM Q8H 12/15 1000 AC 12/23 IV 0930 Ondansetron HCl 4 MG Q6P PRN 12/02 1800 AC 12/22 IV 1233 Pantoprazole Sodium 40 MG DAILY 12/02 2200 AC 12/23 IV 0907 Petrolatum 1 CECY DAILY NEEDED PRN 12/11 2215 AC 12/17 OPH 1600 Sodium Chloride 500 ML BOLUS ONE 12/22 1300 DC 12/22 IV 12/22 1359 1310 Sodium Chloride 500 ML BOLUS ONE 12/22 1300 DC IV 12/22 1359 Total Parenteral 1 UNIT 12/23 1900 AC Nutrition IV 12/24 1859 Total Parenteral 1 UNIT 1900 12/22 1900 AC 12/22 Nutrition IV 12/23 1859 1842 Total Parenteral 1 UNIT ONE 12/21 1900 DC 12/21 Nutrition IV 12/22 1859 1823 Vancomycin HCl 1,000 MG 1700 12/23 1700 AC Dextrose/Water 250 ML IV Vancomycin HCl 1,000 MG DAILY 12/22 1645 DC 12/22 Dextrose/Water 250 ML IV 1705 Impression/Plan Impression/Problem List Impression: 89/M with PMH of asthma, HTN, bilateral inguinal hernia s/p repair 30 years ago presented to [facility] on 12/12/15 c/o acute abdominal pain. He was found to have acute perforation of sigmoid colon complicated by peritonitis. He underwent emergent surgery with Henny's procedure. He was subsequently sent to ICU for hemodynamic stabilization, further care as patient is at high risk for infection/respiratory failure post extubation. Today he is still on ventilated through tracheostomy, slightly arousable, and spiking fevers. He has fast rate and slightly low blood pressure Plan Respiratory: #Respiratory failure. Patient has history of COPD. * On fentanyl drip * Patient is on mechanically ventilated through tracheostomy. His ventilation sittings are tidal volume to 500 and respiratory rate of 16. Infectious Diseases: #Recurrent Fever explaratory laparotomy. Post op day #20 Underwent repeat drainage during ICU stay. OR cultures was sent and was positive for Gram postive cocci and gram negative rods. * He is still febrile with Tmax of 101.9 yesterday. WBCs today is 22.7 * we'll cont' IV meropenem Q8 1gm based on his old culture and sensitivity. * Continue Fluconazol 600 daily. * We will start vancomycin 1 g daily * panculture, will follow the results. * C. difficile, we will follow the results * We will continue liq acetaminophen and cooling blankets when necessary. Cardiovascular: #New onset A. fib postoperativey (resolved). Patient developed A. fib post operative, most likely patient was on stress because of sepsis. He was started on amiodarone drip, patient then converted back to normal sinus rhythm after which a major on trip was discontinued. Currently he is maintaining normal sinus rhythm #New onset bilateral lower extremity edema. Bilateral lower extremity Doppler was done to exclude DVTs as a possible explanation. Results came back negative for DVTs. * we'll keep negative balance #Right Cephalic vein thrombosis Patient was found to have superficial thrombosis in right cephalic vein. He had a peripheral line in that region at the time of surgery. This thrombosis is a superficial and most likely will not lead to any DVTs. * Warm compressors without any anticoagulation for now. Hematology: Patient H&H is dropping even after blood transfusion. patient LDH is highly elevated, total bilirubin is elevated(hemolytic anemia). * Patient will receive one pack of red blood cell today * We'll repeat CBC after he finished blood transfusion and tomorrow morning * We consulted hematology. Metabolic: #JUANA (Resolved) Today creatinine increased to 1.2 from 1.1 yesterday. At some point during this admission patient's creatinine went up to 1.6. #Fluid balance * since admission total intake is still higher than total output. * We will monitor his fluid balance. * We will give Lasix 40 mg daily as a try to keep him negative balance. Alimentary: * NPO with NG decompression * TPN - day 15. * we'll cont' GI prophylaxis. * Colostomy bag in place with active drainage * Bowel sounds present. * Surgery is on board we will follow their recommendation. Neurological: Patient is sedated and ventilated through tracheostomy Patient is arousable to verbal and tactile stimulus. Endocrinology No endocrinology issue at the time SKI No current skin issues Diet patient is nothing by mouth * We'll continue TPN DVT/Prophylaxis: sc lovenox Code Status: Full Code Problem List: 1. Peritonitis 2. Perforated abdominal viscus Pain Ratin Tomorrow's Labs & Rationales: cbc, icu bundle, INR Plan DVT/Prophylaxis: sc lovenox Code Status: Full Code
[2016-12-23 08:00] VITALS: BP 100/70
--- NOTE | 2016-12-23 09:09 | RADIOLOGY REPORT ---
EXAMINATION: XR PORTABLE CHEST CLINICAL INFORMATION: Ventilated COMPARISON: 12/22/2016 and priors. TECHNIQUE: Portable view of the chest was obtained. FINDINGS: Tracheostomy tube midline. Tracheostomy cuff again, mildly distends the tracheal lumen. Enteric tube passes beneath diaphragm. ECG leads overlie the thorax. Stable heart and mediastinal contours. Small effusions noted on 12/22/2016 CT not evident on this upright plain film. Decubitus views would be helpful in this regard. Nonobstructive gas pattern. Degenerative changes in the left shoulder with superior subluxation. IMPRESSION: No interval change.
--- NOTE | 2016-12-23 10:27 | PN- CRCU ---
Subjective HPI/Critical Care Issues: The patient remains on mechanical ventilation and not responding to external stimuli. He appears more jaundice which is consistent with his lab values. He is hemodynamically stable. The patient continues to have intermittent fevers. Objective Current Medications: Current Medications Sig/Ar Start time Last Medication Dose Route Stop Time Status Admin Acetaminophen 640 MG Q4-6 PRN PRN 12/19 1430 AC 12/23 PO 0907 Albuterol Sulfate 3 ML EVERY 4 HRS/AWAKE 12/06 1600 AC 12/23 INH 0849 Fat Emulsion 375 ML 12/21 190 DC 12/21 Intravenous IV 12/22 1859 1823 Fentanyl Citrate 1,000 MCG Q10H 12/21 0900 AC 12/23 Sodium Chloride 250 ML IV 0013 Fluconazole 400 MG DAILY 12/18 1000 AC 12/23 Sodium Chloride 200 ML IV 0907 Fluconazole 200 MG DAILY 12/18 1000 AC 12/22 Sodium Chloride 100 ML IV 1058 Furosemide 40 MG DAILY 12/20 1000 AC 12/23 IV 0906 Heparin Sodium 5,000 UNIT Q8 12/02 2200 AC 12/22 (Porcine) SC 1351 Ipratropium Gantt 2.5 ML EVERY 4 HRS/AWAKE 12/06 1600 AC 12/23 INH 0848 Lorazepam 1 MG Q4P PRN 12/13 1715 AC 12/22 IV 1220 Magnesium Sulfate 1 GM ONCE ONE 12/22 0700 DC 12/22 Dextrose/Water 100 ML IV 12/22 1059 0700 Meropenem 1 GM Q8H 12/15 1000 AC 12/23 IV 0930 Ondansetron HCl 4 MG .STK-MED ONE 12/22 1231 DC IM 12/22 1232 Ondansetron HCl 4 MG Q6P PRN 12/02 1800 AC 12/22 IV 1233 Pantoprazole Sodium 40 MG DAILY 12/02 2200 AC 12/23 IV 0907 Petrolatum 1 CEYC DAILY NEEDED PRN 12/11 2215 AC 12/17 OPH 1600 Sodium Chloride 500 ML BOLUS ONE 12/22 1300 DC 12/22 IV 12/22 1359 1310 Sodium Chloride 500 ML BOLUS ONE 12/22 1300 DC IV 12/22 1359 Total Parenteral 1 UNIT 1900 12/22 1900 AC 12/22 Nutrition IV 12/23 1859 1842 Total Parenteral 1 UNIT ONE 12/21 1900 DC 12/21 Nutrition IV 12/22 1859 1823 Vancomycin HCl 1,000 MG 1700 12/23 1700 AC Dextrose/Water 250 ML IV Vancomycin HCl 1,000 MG DAILY 12/22 1645 DC 12/22 Dextrose/Water 250 ML IV 1705 Vital Signs & I&O Last 24 Hrs of Vitals and I&O: Vital Signs Date Time Temp Pulse Resp B/P Pulse O2 O2 Flow FiO2 Ox Delivery Rate 12/23 0907 102.9 12/23 0837 40 12/23 0540 40 12/23 0400 97 Ventilator 40% 12/23 0314 40 12/23 0023 100.7 12/23 0010 40 12/23 0000 96 Ventilator 40% 12/23 0000 100.7 106 24 108/68 96 Ventilator 40% 12/22 2256 101.4 12/22 2203 40 12/22 2000 98 Ventilator 40% 12/22 1846 40 12/22 1600 98.0 90 16 100/50 96 Ventilator 40% 12/22 1600 96 Ventilator 40% 12/22 1550 40 12/22 1315 45 12/22 1218 100.1 12/22 1200 95 Ventilator 45% 12/22 1117 101.0 12/22 1044 35 Intake & Output 12/23 1600 12/23 0800 12/23 0000 Intake Total 656.7 1105.2 Output Total 870 675 Balance -213.3 430.2 Intake, Blood 393 Product Intake, IV 107.6 78 Intake, Lipid 72.3 Intake, Oral 0 0 Intake, 549.1 561.9 TPN/PPN Output, 450 50 Gastric Drainage Output, Stool 20 25 Output, Urine 400 600 Exam General Appearance: sedated, intubated Head: atraumatic, normal appearance Neck: supple Respiratory: scattered bilateral rhonchi, the lungs expand symmetrically and the trachea is midline Cardiovascular: regular rate/rhythm (no murmur) Abdomen: distended with a clean incision, no erythema or drainage, colostomy has a small amount of liquid output Extremities: 1+ pitting edema Skin: intact, warm/dry Results Last 24 Hrs of Lab Results: Laboratory Tests 12/23/16 0948: Lactate Dehydrogenase Pending, Retic Count Pending 12/23/16 0420: Anion Gap 9, Estimated GFR 57 L, Glucose 181 H, Calcium 7.2 L, Phosphorus 5.1 H, Magnesium 2.0, Total Bilirubin 7.7 H, Direct Bilirubin 6.7 H, AST 33, ALT 29, Albumin 1.9 L, Amylase 57, Lipase 219, CBC w Diff MAN DIFF ORDERED, RBC 2.61 L, MCV 83.9, MCH 29.0, RDW 14.9 H, MPV 9.5, Gran % 89.6 H, Lymphocytes % 3.7 L, Monocytes % 5.9, Eosinophils % 0.4, Basophils % 0.4, Absolute Granulocytes 20.4 H, Segmented Neutrophils 95 H, Band Neutrophils 2, Absolute Lymphocytes 0.8 L, Lymphocytes 2 L, Monocytes 1 L, Absolute Monocytes 1.3 H, Absolute Eosinophils 0.1, Absolute Basophils 0.1, Platelet Estimate INCREASED, Polychromasia 1+, Poikilocytosis 2+, Ovalocytes 1+, Stomatocytes 1+, PUBS MCHC 34.6, Fld Total RBCs Counted 100 12/22/16 2351: PT 15.3 H, INR 1.46 H, APTT 33, CBC w Diff MAN DIFF ORDERED, RBC 2.96 L, MCV 82.6, MCH 27.9, RDW 14.9 H, MPV 9.3, Gran % 88.6 H, Lymphocytes % 5.1 L, Monocytes % 5.9, Eosinophils % 0.3, Basophils % 0.1, Absolute Granulocytes 21.0 H, Segmented Neutrophils 93 H, Absolute Lymphocytes 1.2, Lymphocytes 5 L, Monocytes 2, Absolute Monocytes 1.4 H, Absolute Eosinophils 0.1, Absolute Basophils 0, Platelet Estimate INCREASED, Polychromasia 1+, Poikilocytosis 1+, Basophilic Stippling 1+, Ovalocytes 1+, Stomatocytes FEW, PUBS MCHC 33.8, Fld Total RBCs Counted 100 12/22/16 2234: Lactate Dehydrogenase Cancelled 12/22/16 1700: CBC w Diff Cancelled, WBC Cancelled, RBC Cancelled, Hgb Cancelled, Hct Cancelled , MCV Cancelled, MCH Cancelled, RDW Cancelled, Plt Count Cancelled, MPV Cancelled, PUBS MCHC Cancelled 12/22/16 1630: Phlebotomy Draw Site L THORACENTESIS, Pleural pH 7.36 12/22/16 1622: Fluid WBC 518 H, Fld Total RBCs Counted 475 H 12/22/16 1622: Lymphocytes 38, % Normal PMNs 52, Misc Hematology Test , Fluid Glucose 179, Fluid Total Protein 3.8, Fluid Albumin 1.3, Fluid LDH 1144, Fluid Amylase 47 12/22/16 1439: CBC w Diff MAN DIFF ORDERED, RBC 2.52 L, MCV 82.9, MCH 28.4, RDW 15.4 H, MPV 9.1, Gran % 89.0 H, Lymphocytes % 4.9 L, Monocytes % 5.5, Eosinophils % 0.4, Basophils % 0.2, Absolute Granulocytes 21.2 H, Segmented Neutrophils 79 H, Band Neutrophils 13 H, Absolute Lymphocytes 1.2, Lymphocytes 4 L, Monocytes 2, Absolute Monocytes 1.3 H, Absolute Eosinophils 0.1, Basophils 1, Absolute Basophils 0, Metamyelocytes 1, Platelet Estimate INCREASED, Polychromasia 1+, Hypochromic-Microcytic 1+, Basophilic Stippling RARE, Stomatocytes 2+, PUBS MCHC 34.3, Fld Total RBCs Counted 100 Diagnostic Data CXR Findings: No interval change. Impression/Plan Impression/Plan Impression/Plan: 1. S/P exploratory laparotomy and Hartmans procedure, s/p repeat abdominal washout, with persistent fevers. He remains on meropenem, Diflucan and Vanco. 2. Respiratory failure. 3. 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 4. Malnutrition. 5. Superficial cephalic vein thrombosis, no DVT. 6. Anemia without bleeding - likely dilutional. 7. Worsening bilirubinemia which may be related to TPN. Moni test is negative. Recommendations: * Continue to hold lipids. * Hematology consult requested regarding elevated bilirubin. * Continue meropenem, vanco and Diflucan as per ID. * Continue current ventilator settings. * TRC/nebs. * Cooling blanket as necessary to control temps. * Fentanyl drip to be weaned as tolerated. * Hold Lasix today. * Continue DVT and GI prophylaxis. * Continue all supportive care. Code Status: Full Code
--- NOTE | 2016-12-23 10:36 | PN- Infect Dx ---
Subjective Subjective: MAXIMUM TEMPERATURE 102.9. He appears to respond to voice and pain. Objective Last 24 Hrs of Vital Signs/I&O Vital Signs Date Time Temp Pulse Resp B/P Pulse O2 O2 Flow FiO2 Ox Delivery Rate 12/23 0907 102.9 12/23 0837 40 12/23 0540 40 12/23 0400 97 Ventilator 40% 12/23 0314 40 12/23 0023 100.7 12/23 0010 40 12/23 0000 96 Ventilator 40% 12/23 0000 100.7 106 24 108/68 96 Ventilator 40% 12/22 2256 101.4 12/22 2203 40 12/22 2000 98 Ventilator 40% 12/22 1846 40 12/22 1600 98.0 90 16 100/50 96 Ventilator 40% 12/22 1600 96 Ventilator 40% 12/22 1550 40 12/22 1315 45 12/22 1218 100.1 12/22 1200 95 Ventilator 45% 12/22 1117 101.0 12/22 1044 35 Intake & Output 12/23 1600 12/23 0800 12/23 0000 Intake Total 656.7 1105.2 Output Total 870 675 Balance -213.3 430.2 Intake, Blood 393 Product Intake, IV 107.6 78 Intake, Lipid 72.3 Intake, Oral 0 0 Intake, 549.1 561.9 TPN/PPN Output, 450 50 Gastric Drainage Output, Stool 20 25 Output, Urine 400 600 Physical Exam Other Physical Findings: He is responsive to pain and voice Neck trach site with minimal erythema Lungs scattered rhonchi bilaterally Heart regular rhythm with no murmur Abdomen is distended, incision is clean, with no erythema or drainage; colostomy with liquid brown output Extremities 1+ edema both lower extremities; PICC in the left upper extremity with no inflammation at the site Edward catheter remains in place Results Last 24 Hours of Lab Results: Laboratory Tests 12/23 12/23 0948 0420 Chemistry Sodium (137 - 145 mmol/L) 138 Potassium (3.5 - 5.1 mmol/L) 4.3 Chloride (98 - 107 mmol/L) 97 L Carbon Dioxide (22 - 30 mmol/L) 32 H Anion Gap (5 - 16) 9 BUN (9 - 20 mg/dL) 40 H Creatinine (0.7 - 1.2 mg/dL) 1.2 Estimated GFR (>60 ml/min) 57 L Glucose (65 - 99 mg/dL) 181 H Calcium (8.4 - 10.2 mg/dL) 7.2 L Phosphorus (2.5 - 4.5 mg/dL) 5.1 H Magnesium (1.6 - 2.3 mg/dL) 2.0 Total Bilirubin (0.2 - 1.3 mg/dL) 7.7 H Direct Bilirubin (< 0.4 mg/dL) 6.7 H AST (17 - 59 U/L) 33 ALT (21 - 72 U/L) 29 Lactate Dehydrogenase Pending Albumin (3.5 - 5.0 g/dL) 1.9 L Amylase (30 - 110 U/L) 57 Lipase (23 - 300 U/L) 219 Hematology CBC w Diff MAN DIFF ORDERED WBC (4.8 - 10.8 /CUMM) 22.7 H RBC (4.70 - 6.10 /CUMM) 2.61 L Hgb (14.0 - 18.0 G/DL) 7.6 L Hct (42 - 52 %) 21.9 L MCV (80.0 - 94.0 FL) 83.9 MCH (27.0 - 31.0 PG) 29.0 RDW (11.5 - 14.5 %) 14.9 H Plt Count (130 - 400 /CUMM) 465 H MPV (7.4 - 10.4 FL) 9.5 Gran % (42.2 - 75.2 %) 89.6 H Lymphocytes % (20.5 - 51.1 %) 3.7 L Monocytes % (1.7 - 9.3 %) 5.9 Eosinophils % (0 - 5 %) 0.4 Basophils % (0.0 - 2.0 %) 0.4 Absolute Granulocytes (1.4 - 6.5 /CUMM) 20.4 H Segmented Neutrophils (42.2 - 75.2 %) 95 H Band Neutrophils (0.0 - 5.0 %) 2 Absolute Lymphocytes (1.2 - 3.4 /CUMM) 0.8 L Lymphocytes (20.5 - 51.1 %) 2 L Monocytes (1.7 - 9.3 %) 1 L Absolute Monocytes (0.10 - 0.60 /CUMM) 1.3 H Absolute Eosinophils (0.0 - 0.7 /CUMM) 0.1 Absolute Basophils (0.0 - 0.2 /CUMM) 0.1 Platelet Estimate (ADEQUATE) INCREASED Polychromasia 1+ Poikilocytosis 2+ Ovalocytes 1+ Stomatocytes 1+ PUBS MCHC (33.0 - 37.0 G/DL) 34.6 Retic Count Pending Other Body Source Fld Total RBCs Counted (%) 100 12/22 12/22 2351 2234 Chemistry Lactate Dehydrogenase Cancelled Coagulation PT (9.4 - 12.5 SEC) 15.3 H INR (0.90 - 1.17) 1.46 H APTT (25 - 37 SEC) 33 Hematology CBC w Diff MAN DIFF ORDERED WBC (4.8 - 10.8 /CUMM) 23.7 H RBC (4.70 - 6.10 /CUMM) 2.96 L Hgb (14.0 - 18.0 G/DL) 8.3 L Hct (42 - 52 %) 24.5 L MCV (80.0 - 94.0 FL) 82.6 MCH (27.0 - 31.0 PG) 27.9 RDW (11.5 - 14.5 %) 14.9 H Plt Count (130 - 400 /CUMM) 515 H MPV (7.4 - 10.4 FL) 9.3 Gran % (42.2 - 75.2 %) 88.6 H Lymphocytes % (20.5 - 51.1 %) 5.1 L Monocytes % (1.7 - 9.3 %) 5.9 Eosinophils % (0 - 5 %) 0.3 Basophils % (0.0 - 2.0 %) 0.1 Absolute Granulocytes (1.4 - 6.5 /CUMM) 21.0 H Segmented Neutrophils (42.2 - 75.2 %) 93 H Absolute Lymphocytes (1.2 - 3.4 /CUMM) 1.2 Lymphocytes (20.5 - 51.1 %) 5 L Monocytes (1.7 - 9.3 %) 2 Absolute Monocytes (0.10 - 0.60 /CUMM) 1.4 H Absolute Eosinophils (0.0 - 0.7 /CUMM) 0.1 Absolute Basophils (0.0 - 0.2 /CUMM) 0 Platelet Estimate (ADEQUATE) INCREASED Polychromasia 1+ Poikilocytosis 1+ Basophilic Stippling 1+ Ovalocytes 1+ Stomatocytes FEW PUBS MCHC (33.0 - 37.0 G/DL) 33.8 Other Body Source Fld Total RBCs Counted (%) 100 12/22 12/22 12/22 12/22 1700 1630 1622 1622 Hematology CBC w Diff Cancelled WBC Cancelled RBC Cancelled Hgb Cancelled Hct Cancelled MCV Cancelled MCH Cancelled RDW Cancelled Plt Count Cancelled MPV Cancelled Lymphocytes (%) 38 % Normal PMNs (%) 52 PUBS MCHC Cancelled Misc Hematology Test (%) Miscellaneous Phlebotomy Draw Site L THORACENTESIS Other Body Source Fluid WBC (0 - 5 /CUMM) 518 H Fld Total RBCs Counted (0 /CUMM) 475 H Fluid Glucose (mg/dL) 179 Fluid Total Protein (g/dL) 3.8 Fluid Albumin (g/dL) 1.3 Fluid LDH (U/L) 1144 Fluid Amylase (U/L) 47 Pleural pH (PH) 7.36 12/22 1439 Hematology CBC w Diff MAN DIFF ORDERED WBC (4.8 - 10.8 /CUMM) 23.8 H RBC (4.70 - 6.10 /CUMM) 2.52 L Hgb (14.0 - 18.0 G/DL) 7.2 *L Hct (42 - 52 %) 20.9 L MCV (80.0 - 94.0 FL) 82.9 MCH (27.0 - 31.0 PG) 28.4 RDW (11.5 - 14.5 %) 15.4 H Plt Count (130 - 400 /CUMM) 477 H MPV (7.4 - 10.4 FL) 9.1 Gran % (42.2 - 75.2 %) 89.0 H Lymphocytes % (20.5 - 51.1 %) 4.9 L Monocytes % (1.7 - 9.3 %) 5.5 Eosinophils % (0 - 5 %) 0.4 Basophils % (0.0 - 2.0 %) 0.2 Absolute Granulocytes (1.4 - 6.5 /CUMM) 21.2 H Segmented Neutrophils (42.2 - 75.2 %) 79 H Band Neutrophils (0.0 - 5.0 %) 13 H Absolute Lymphocytes (1.2 - 3.4 /CUMM) 1.2 Lymphocytes (20.5 - 51.1 %) 4 L Monocytes (1.7 - 9.3 %) 2 Absolute Monocytes (0.10 - 0.60 /CUMM) 1.3 H Absolute Eosinophils (0.0 - 0.7 /CUMM) 0.1 Basophils (0.0 - 2.0 %) 1 Absolute Basophils (0.0 - 0.2 /CUMM) 0 Metamyelocytes (0.0 - 1.0 %) 1 Platelet Estimate (ADEQUATE) INCREASED Polychromasia 1+ Hypochromic-Microcytic 1+ Basophilic Stippling RARE Stomatocytes 2+ PUBS MCHC (33.0 - 37.0 G/DL) 34.3 Other Body Source Fld Total RBCs Counted (%) 100 Last 24 Hours of Adrian Results: Blood cultures December 21 negative Urine culture December 21 negative Sputum culture December 21 light growth of yeast Left pleural fluid culture December 22 negative Stool C. difficile December 21 negative Recent Imaging Studies: CT of the chest, abdomen and pelvis reveals increasing bilateral pleural effusions; a small amount of intraperitoneal free air and fluid noted, extending into the left inguinal hernia and appearing to communicate with an increasing amount of air along the ventral incision; evolving ileus versus small bowel obstruction; no focal abscess CT of the sinuses reveals moderate to extensive opacification throughout the paranasal sinuses, with increased opacification of bilateral mastoid air cells, with partially opacified middle ear cavities Chest x-ray December 23, personally reviewed, reveals increased markings on the right Assessment/Plan Impression: Persistent fevers and leukocytosis despite continued treatment with Meropenem and Fluconazole now 11 days status post repeat laparotomy for drainage of intraperitoneal abscesses and 21 days status post his initial Kirkland's procedure for peritonitis secondary to a perforated viscus, with Vancomycin added empirically yesterday for possible sinusitis given the CT findings, though clinically there is no evidence for this and am not convinced that this needs to be treated. His recent repeat cultures remain negative, other than the isolation of yeast from the sputum which presumably represents oropharyngeal contamination, and the CT scan of the chest, abdomen and pelvis did not reveal any evidence for a residual or new focus of infection. The significance of the air on CT is unclear and will defer to Surgery on this. He did undergo a left thoracentesis yesterday, with no evidence of empyema. His bilirubin continues to increase, though the biliary tree on his recent right upper quadrant ultrasound and CT scan was unremarkable, and this may be secondary to TPN. Suggestion: 1. Surgical follow-up regarding the CT findings of intraperitoneal free air 2. Follow-up final cultures 3. Continue Vancomycin, Meropenem and Fluconazole
--- NOTE | 2016-12-23 11:46 | Operative Report ---
Operative/Inv Procedure Report Surgery Date: 12/21/16 Name of Procedure: Tracheostomy Pre-Operative Diagnosis: Prolonged ventilatory dependency critical illness Post-Operative Diagnosis: Same Estimated Blood Loss: less than 50ml Surgeon/Basketball Referee: ARISTIDES ALEJANDRO,DARWIN KOCH Anesthesia: general endotracheal tube Operative/Procedure Note Note: Patient was brought from the ICU and transferred from the bed to the operating room bed his neck from the chest to the chin was clipped prepped and draped in usual sterile fashion a shoulder roll was placed. A very short non-supple neck, but you could palpate the thyroid cartilage and cricoid, next using the thyroid notch that as a landmark we marked the incision over the cricoid and after prepping and draping we injected local anesthetic at this stefan and then made a 3 cm incision with a 15 blade deepened it with cautery, divided a small superficial vein on the left side between 3-0 silk suture ties, and identified the platysma and the midline, which was incised vertically and then making sure that we stayed in the middle this was a short nowwe identified the cricoid cartilage cleared off a little bit and then inferiorly developed a clearing off the first and second rings of the trachea to do this we had to divide a very thick bulky isthmus partially with cautery but also using some 3-0 Vicryl suture ligature. Once we had cleared off an adequate space we placed a tracheal hook below the cricoid gently retracted superiorly and with a combination of scissors and knife made a tracheotomy excising a portion of the first and second tracheal ring and inserted a 7 Shiley tracheostomy tube while the anesthesiologist withdrew the ET tube, inflated the balloon it was secure and we were able to ventilate, next we secured the tracheostomy tube first by reapproximating the incision with interrupted 3-0 Vicryl sutures deep and then 3-0 nylon for the skin and then the silicone cuff was secured to the skin separately with 4 separate 3-0 nylon sutures to on each side, followed by the Velcro collar. Bacitracin and a dressing was applied and the patient was transported back to the ICU in satisfactory condition with the tracheostomy secure. Estimated blood loss was less than 20 mL, wound expectancy was clean contaminated, IV fluids crystalloid complications none patient tolerated the procedure well.
[2016-12-23 16:00] VITALS: BP 128/70
--- NOTE | 2016-12-23 16:08 | RADIOLOGY REPORT ---
EXAMINATION: XR ABDOMEN CLINICAL INDICATION: Bile fluid through NG tube, distended abdomen COMPARISON: CT 12/22/2016 TECHNIQUE: AP supine radiograph of the abdomen. FINDINGS: Enteric tube tip overlies the body of the stomach. 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 No disproportionate dilation is seen to strongly suggest obstruction, and overall pattern is suggestive of mild ileus. Midline skin singh are noted. IMPRESSION: Multiple gas-filled loops of small and large bowel are redemonstrated, overall suggestive of ileus.
--- NOTE | 2016-12-23 18:44 | Cons- Hematology ---
General Information and HPI Consulting Request Date of Consult: 12/23/16 Requested By: ABDI SCHULTE Reason for Consult: Anemia Source of Information: family, old records Exam Limitations: clinical condition History of Present Illness: Mr. Calvo is an 89-year-old male with asthma and presented to [facility] on 12/12/15 acute abdominal pain. He was found to have acute perforation of sigmoid colon complicated by peritonitis. He underwent emergent surgery with Henny's procedure. Postoperative course have been complicated by hypotension and respiratory failure. He was intubated and is now ventilated through tracheostomy. He has persistent fever with infections. He is currently on fluconazole, meropenem, and vancomycin. He has had intraperitoneal abscess and had abdominal washout done. He continues to have fever. His last CT scan on 12/22/2016 demonstrated a small amount of intraperitoneal free air. This is new compared to prior. He has evolving ileus. He has also been noted to have decreasing hemoglobin inspite of 2 units of pRBC transfusion. He also has have superficial thrombosis in right cephalic vein. He has no obvious bleeding. He also has TPN for nutrition. He is NPO with NG decompression in place. Hematology: Allergies/Medications Allergies: Coded Allergies: NO KNOWN ALLERGIES (12/24/15) Home Med List: Albuterol Sulfate (Ventolin Hfa) 90 MCG HFA.AER.AD 2 PUF INH Q4-6 PRN PRN BREATHING PROBLEMS (Reported) Albuterol Sulfate/Ipratropiu (Duoneb) 3 MG/3 ML NEB 1 Vial INH/ELOY 4 TIMES/DAY PRN WHEEZING Atorvastatin Calcium 10 MG TABLET 1 TAB PO DAILY CHOLESTEROL (Reported) Furosemide (Lasix) 20 MG TABLET 1 TAB PO DAILY FLUID IN LUNGS Methylprednisolone. (Medrol) 4 MG TAB.DS.PK 1 DP PO AD BRONCHOSPASM 6 on day 1 then reduce by one tablet daily until gone Potassium Chloride 10 MEQ TAB.ER.PRT 1 TAB PO DAILY SUPPLEMENT Current Medications: Current Medications Sig/Ar Start time Last Medication Dose Route Stop Time Status Admin Acetaminophen 640 MG Q4P PRN 12/23 1415 AC 12/23 PO 1430 Acetaminophen 640 MG Q4-6 PRN PRN 12/19 1430 DC 12/23 PO 0907 Albuterol Sulfate 3 ML EVERY 4 HRS/AWAKE 12/06 1600 AC 12/23 INH 1626 Fat Emulsion 375 ML 1900 12/21 1900 DC 12/21 Intravenous IV 12/22 1859 1823 Fentanyl Citrate 1,000 MCG Q10H 12/21 0900 AC 12/23 Sodium Chloride 250 ML IV 0013 Fluconazole 400 MG DAILY 12/18 1000 AC 12/23 Sodium Chloride 200 ML IV 0907 Fluconazole 200 MG DAILY 12/18 1000 AC 12/23 Sodium Chloride 100 ML IV 1159 Furosemide 40 MG DAILY 12/20 1000 AC 12/23 IV 0906 Heparin Sodium 5,000 UNIT Q8 12/02 2200 DC 12/22 (Porcine) SC 1351 Ipratropium [place] 2.5 ML EVERY 4 HRS/AWAKE 12/06 1600 AC 12/23 INH 1626 Lorazepam 1 MG Q4P PRN 12/13 1715 AC 12/22 IV 1220 Meropenem 1 GM Q8H 12/15 1000 AC 12/23 IV 0930 Ondansetron HCl 4 MG Q6P PRN 12/02 1800 AC 12/22 IV 1233 Pantoprazole Sodium 40 MG DAILY 12/02 2200 AC 12/23 IV 0907 Petrolatum 1 CECY DAILY NEEDED PRN 12/11 2215 AC 12/23 OPH 1532 Total Parenteral 1 UNIT 1900 12/23 1900 AC Nutrition IV 12/24 1859 Total Parenteral 1 UNIT 1900 12/22 1900 AC 12/22 Nutrition IV 12/23 1859 1842 Total Parenteral 1 UNIT ONE 12/21 1900 DC 12/21 Nutrition IV 12/22 1859 1823 Vancomycin HCl 1,000 MG 1700 12/23 1700 AC Dextrose/Water 250 ML IV Vancomycin HCl 1,000 MG DAILY 12/22 1645 DC 12/22 Dextrose/Water 250 ML IV 1705 Review of Systems Review of Systems: Unable to obtain due to clinical status. 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 Home Services at Home: None Smoking Status: Former Smoker Functional Ability ADLs Independent: dressing, eating, toileting, bathing. Ambulation: independent IADLs Independent: shopping, housework, finances, food prep, telephone, transportation , medication admin. Exam & Diagnostic Data Vital Signs and I&O Vital Signs Date Time Temp Pulse Resp B/P Pulse O2 O2 Flow FiO2 Ox Delivery Rate 12/23 1610 40 12/23 1600 99.1 105 21 128/70 96 Ventilator 40% 12/23 1545 99.1 12/23 1430 102.2 12/23 1356 40 12/23 1200 96 Ventilator 40% 12/23 1121 40 12/23 1030 98.0 12/23 1025 99.9 12/23 1025 98.0 12/23 0907 102.9 12/23 0837 40 12/23 0800 101.9 12/23 0800 102.2 12/23 0800 102.9 104 22 100/70 98 Ventilator 40% 12/23 0800 98 Ventilator 40% 12/23 0540 40 12/23 0400 97 Ventilator 40% 12/23 0314 40 12/23 0023 100.7 12/23 0010 40 12/23 0000 96 Ventilator 40% 12/23 0000 100.7 106 24 108/68 96 Ventilator 40% 12/22 2256 101.4 12/22 2203 40 12/22 2000 98 Ventilator 40% 12/22 1846 40 Intake & Output 12/23 1600 12/23 0800 12/23 0000 Intake Total 1183.0 656.7 1105.2 Output Total 1210 870 675 Balance -27.0 -213.3 430.2 Intake, Blood 393 Product Intake, IV 464 107.6 78 Intake, Lipid 0 72.3 Intake, Oral 0 0 Intake, Other 110 Intake, 609 549.1 561.9 TPN/PPN Output, 550 450 50 Gastric Drainage Output, Stool 10 20 25 Output, Urine 650 400 600 Patient 94.404 kg Weight Physical Exam General Appearance: intubated, lethargic Eyes: Bilateral: PERRL, other (jaundice). Ears, Nose, Throat: normal pharynx Neck: supple Cardiovascular: tachycardia Gastrointestinal: distention, tenderness Extremities: pedal edema Neurologic/Psych: disoriented x 3 Skin: warm/dry Lymphatic: no anterior cervical pantera Last 48 Hours of Lab Results: Laboratory Tests 12/23 12/23 0948 0420 Chemistry Sodium (137 - 145 mmol/L) 138 Potassium (3.5 - 5.1 mmol/L) 4.3 Chloride (98 - 107 mmol/L) 97 L Carbon Dioxide (22 - 30 mmol/L) 32 H Anion Gap (5 - 16) 9 BUN (9 - 20 mg/dL) 40 H Creatinine (0.7 - 1.2 mg/dL) 1.2 Estimated GFR (>60 ml/min) 57 L Glucose (65 - 99 mg/dL) 181 H Calcium (8.4 - 10.2 mg/dL) 7.2 L Phosphorus (2.5 - 4.5 mg/dL) 5.1 H Magnesium (1.6 - 2.3 mg/dL) 2.0 Total Bilirubin (0.2 - 1.3 mg/dL) 7.7 H Direct Bilirubin (< 0.4 mg/dL) 6.7 H AST (17 - 59 U/L) 33 ALT (21 - 72 U/L) 29 Lactate Dehydrogenase (313 - 618 U/L) 696 H Albumin (3.5 - 5.0 g/dL) 1.9 L Amylase (30 - 110 U/L) 57 Lipase (23 - 300 U/L) 219 Hematology CBC w Diff MAN DIFF ORDERED WBC (4.8 - 10.8 /CUMM) 22.7 H RBC (4.70 - 6.10 /CUMM) 2.61 L Hgb (14.0 - 18.0 G/DL) 7.6 L Hct (42 - 52 %) 21.9 L MCV (80.0 - 94.0 FL) 83.9 MCH (27.0 - 31.0 PG) 29.0 RDW (11.5 - 14.5 %) 14.9 H Plt Count (130 - 400 /CUMM) 465 H MPV (7.4 - 10.4 FL) 9.5 Gran % (42.2 - 75.2 %) 89.6 H Lymphocytes % (20.5 - 51.1 %) 3.7 L Monocytes % (1.7 - 9.3 %) 5.9 Eosinophils % (0 - 5 %) 0.4 Basophils % (0.0 - 2.0 %) 0.4 Absolute Granulocytes (1.4 - 6.5 /CUMM) 20.4 H Segmented Neutrophils (42.2 - 75.2 %) 95 H Band Neutrophils (0.0 - 5.0 %) 2 Absolute Lymphocytes (1.2 - 3.4 /CUMM) 0.8 L Lymphocytes (20.5 - 51.1 %) 2 L Monocytes (1.7 - 9.3 %) 1 L Absolute Monocytes (0.10 - 0.60 /CUMM) 1.3 H Absolute Eosinophils (0.0 - 0.7 /CUMM) 0.1 Absolute Basophils (0.0 - 0.2 /CUMM) 0.1 Platelet Estimate (ADEQUATE) INCREASED Polychromasia 1+ Poikilocytosis 2+ Ovalocytes 1+ Stomatocytes 1+ PUBS MCHC (33.0 - 37.0 G/DL) 34.6 Retic Count (0.5 - 2.0 %) 4.83 H Other Body Source Fld Total RBCs Counted (%) 100 12/22 12/22 2351 2234 Chemistry Lactate Dehydrogenase Cancelled Coagulation PT (9.4 - 12.5 SEC) 15.3 H INR (0.90 - 1.17) 1.46 H APTT (25 - 37 SEC) 33 Hematology CBC w Diff MAN DIFF ORDERED WBC (4.8 - 10.8 /CUMM) 23.7 H RBC (4.70 - 6.10 /CUMM) 2.96 L Hgb (14.0 - 18.0 G/DL) 8.3 L Hct (42 - 52 %) 24.5 L MCV (80.0 - 94.0 FL) 82.6 MCH (27.0 - 31.0 PG) 27.9 RDW (11.5 - 14.5 %) 14.9 H Plt Count (130 - 400 /CUMM) 515 H MPV (7.4 - 10.4 FL) 9.3 Gran % (42.2 - 75.2 %) 88.6 H Lymphocytes % (20.5 - 51.1 %) 5.1 L Monocytes % (1.7 - 9.3 %) 5.9 Eosinophils % (0 - 5 %) 0.3 Basophils % (0.0 - 2.0 %) 0.1 Absolute Granulocytes (1.4 - 6.5 /CUMM) 21.0 H Segmented Neutrophils (42.2 - 75.2 %) 93 H Absolute Lymphocytes (1.2 - 3.4 /CUMM) 1.2 Lymphocytes (20.5 - 51.1 %) 5 L Monocytes (1.7 - 9.3 %) 2 Absolute Monocytes (0.10 - 0.60 /CUMM) 1.4 H Absolute Eosinophils (0.0 - 0.7 /CUMM) 0.1 Absolute Basophils (0.0 - 0.2 /CUMM) 0 Platelet Estimate (ADEQUATE) INCREASED Polychromasia 1+ Poikilocytosis 1+ Basophilic Stippling 1+ Ovalocytes 1+ Stomatocytes FEW PUBS MCHC (33.0 - 37.0 G/DL) 33.8 Other Body Source Fld Total RBCs Counted (%) 100 12/22 12/22 12/22 12/22 1700 1630 1622 1622 Hematology CBC w Diff Cancelled WBC Cancelled RBC Cancelled Hgb Cancelled Hct Cancelled MCV Cancelled MCH Cancelled RDW Cancelled Plt Count Cancelled MPV Cancelled Lymphocytes (%) 38 % Normal PMNs (%) 52 PUBS MCHC Cancelled Misc Hematology Test (%) Miscellaneous Phlebotomy Draw Site L THORACENTESIS Other Body Source Fluid WBC (0 - 5 /CUMM) 518 H Fld Total RBCs Counted (0 /CUMM) 475 H Fluid Glucose (mg/dL) 179 Fluid Total Protein (g/dL) 3.8 Fluid Albumin (g/dL) 1.3 Fluid LDH (U/L) 1144 Fluid Amylase (U/L) 47 Pleural pH (PH) 7.36 12/22 12/22 1439 0500 Hematology CBC w Diff MAN DIFF ORDERED WBC (4.8 - 10.8 /CUMM) 23.8 H RBC (4.70 - 6.10 /CUMM) 2.52 L Hgb (14.0 - 18.0 G/DL) 7.2 *L Hct (42 - 52 %) 20.9 L MCV (80.0 - 94.0 FL) 82.9 MCH (27.0 - 31.0 PG) 28.4 RDW (11.5 - 14.5 %) 15.4 H Plt Count (130 - 400 /CUMM) 477 H MPV (7.4 - 10.4 FL) 9.1 Gran % (42.2 - 75.2 %) 89.0 H Lymphocytes % (20.5 - 51.1 %) 4.9 L Monocytes % (1.7 - 9.3 %) 5.5 Eosinophils % (0 - 5 %) 0.4 Basophils % (0.0 - 2.0 %) 0.2 Absolute Granulocytes (1.4 - 6.5 /CUMM) 21.2 H Segmented Neutrophils (42.2 - 75.2 %) 79 H Band Neutrophils (0.0 - 5.0 %) 13 H Absolute Lymphocytes (1.2 - 3.4 /CUMM) 1.2 Lymphocytes (20.5 - 51.1 %) 4 L Monocytes (1.7 - 9.3 %) 2 Absolute Monocytes (0.10 - 0.60 /CUMM) 1.3 H Absolute Eosinophils (0.0 - 0.7 /CUMM) 0.1 Basophils (0.0 - 2.0 %) 1 Absolute Basophils (0.0 - 0.2 /CUMM) 0 Metamyelocytes (0.0 - 1.0 %) 1 Platelet Estimate (ADEQUATE) INCREASED Polychromasia 1+ Hypochromic-Microcytic 1+ Basophilic Stippling RARE Stomatocytes 2+ PUBS MCHC (33.0 - 37.0 G/DL) 34.3 Haptoglobin Pending Other Body Source Fld Total RBCs Counted (%) 100 12/22 0420 Chemistry Sodium (137 - 145 mmol/L) 136 L Potassium (3.5 - 5.1 mmol/L) 4.3 Chloride (98 - 107 mmol/L) 95 L Carbon Dioxide (22 - 30 mmol/L) 32 H Anion Gap (5 - 16) 8 BUN (9 - 20 mg/dL) 33 H Creatinine (0.7 - 1.2 mg/dL) 1.1 Estimated GFR (>60 ml/min) > 60 Glucose (65 - 99 mg/dL) 171 H Calcium (8.4 - 10.2 mg/dL) 7.1 L Phosphorus (2.5 - 4.5 mg/dL) 5.2 H Magnesium (1.6 - 2.3 mg/dL) 1.6 Iron (49 - 181 ug/dL) < 10 L TIBC (261 - 462 ug/dL) 126 L Ferritin (17.9 - 464 ng/mL) 1260.0 H Total Bilirubin (0.2 - 1.3 mg/dL) 5.1 H AST (17 - 59 U/L) 34 ALT (21 - 72 U/L) 32 Lactate Dehydrogenase (313 - 618 U/L) 647 H Total Protein (6.3 - 8.2 g/dL) 6.4 Albumin (3.5 - 5.0 g/dL) 1.9 L Hematology CBC w Diff MAN DIFF ORDERED WBC (4.8 - 10.8 /CUMM) 22.8 H RBC (4.70 - 6.10 /CUMM) 2.52 L Hgb (14.0 - 18.0 G/DL) 7.1 *L Hct (42 - 52 %) 20.8 L MCV (80.0 - 94.0 FL) 82.4 MCH (27.0 - 31.0 PG) 28.0 RDW (11.5 - 14.5 %) 14.7 H Plt Count (130 - 400 /CUMM) 477 H MPV (7.4 - 10.4 FL) 9.5 Gran % (42.2 - 75.2 %) 87.1 H Lymphocytes % (20.5 - 51.1 %) 6.6 L Monocytes % (1.7 - 9.3 %) 5.4 Eosinophils % (0 - 5 %) 0.7 Basophils % (0.0 - 2.0 %) 0.2 Absolute Granulocytes (1.4 - 6.5 /CUMM) 19.9 H Segmented Neutrophils (42.2 - 75.2 %) 90 H Absolute Lymphocytes (1.2 - 3.4 /CUMM) 1.5 Lymphocytes (20.5 - 51.1 %) 6 L Monocytes (1.7 - 9.3 %) 4 Absolute Monocytes (0.10 - 0.60 /CUMM) 1.2 H Absolute Eosinophils (0.0 - 0.7 /CUMM) 0.2 Absolute Basophils (0.0 - 0.2 /CUMM) 0 Platelet Estimate (ADEQUATE) INCREASED Polychromasia 1+ Poikilocytosis 2+ Ovalocytes 1+ Stomatocytes 1+ PUBS MCHC (33.0 - 37.0 G/DL) 34.0 Other Body Source Fld Total RBCs Counted (%) 100 Imaging/Other Studies: Chest/abdomen/pelvis CT 12/22/2016: 1. Increasing bilateral pleural effusions with underlying atelectasis. 2. Tracheostomy tube, a left PICC line, and enteric tubes appear in satisfactory position. 3. A small amount of intraperitoneal free air and fluid is noted which extends into the patient's left inguinal hernia. 4. Free air is new appears to communicate with an increasing amount of air along the patient's ventral incision. 5. Evolving ileus versus developing small bowel obstruction. 6. No focal abscess is identified. 7. Mild thickening versus underdistention of the proximal descending colon. 8. T11 and L1 compression deformities are again noted. Sinus CT 12/22/2016: 1. Moderate to extensive opacification throughout the paranasal sinuses, worsened from 12/09/2016. Appearance may reflect acute sinusitis. 2. Increased opacification of the bilateral mastoid air cells, left greater than right. Middle ear cavities are also partially opacified. Mastoiditis may be considered in the proper clinical setting. 3. No soft tissue abscess identified. Assessment/Plan Assessment: Mr. Calvo is an 89-year-old male with asthma and hypertension who presented to the ED with perforated viscus with resulting peritonitis status post surgery with Henny's procedure. His hospitalization has been complicated by hypotension, respiratory failure, and sepsis. He continues to be febrile is currently on antibiotics. His blood work has been noted to be trending downward despite transfusion. His blood work demonstrated elevated LDH in the 600s. He has elevated bilirubin up in the 7.7 with mostly direct bilirubin of 6.7. It has been slowly increasing. AST and ALT have been normal. His iron studies demonstrated low iron, low TIBC, and elevated ferritin. This is related anemia of chronic inflammation. His renal function is mildly decreased. NAINA is negative. These findings suggest less hemolytic picture. Reticulocyte is low for the degree of anemia. Bilirubin elevate may be related to medication versus TPN. Haptoglobin is pending. He continues to be critically ill. This likely will make him have a suppressed marrow for production. Other sources of anemia would be blood draw. Myelosuppression with antibiotics is also a potential etiology. DIC is also in the differentials. If he continues to have severe anemia, a trial of steroid may be reasonable as long as infectious source is resolved as it may exacerbate the infection. If infectious etiology is ruled out, fever may be related to drug. Recommendations: 1. Follow up on haptoglobin 2. Check DIC panel 3. Limits blood draw if possible 4. Consider steroid if infectious source ruled out 5. Consider more restrictive transfusion parameter (Hgb<7) Problem List: 1. COPD (chronic obstructive pulmonary disease) 2. Asthma 3. Perforated abdominal viscus 4. Peritonitis 5. Anemia Other Findings/Comments: Please call [phone] with any questions. Consult Acknowledgment - Thank you for your consult request.
[2016-12-23 23:00] LABS: ABSOLUTE BASOPHIL COUNT 0.1 /CUMM (0.0-0.2); ABSOLUTE EOSINOPHIL COUNT 0.1 /CUMM (0.0-0.7); ABSOLUTE GRANULOCYTE CT 22.1 /CUMM (1.4-6.5); ABSOLUTE LYMPH COUNT 0.9 /CUMM (1.2-3.4); BASOPHIL % 0.3 % (0.0-2.0); EOSINOPHIL % 0.3 % (0-5); GRANULOCYTE % 91.6 % (42.2-75.2); HEMATOCRIT 24.8 % (42-52); MEAN CORPUSCULAR HGB 29.4 PG (27.0-31.0); MEAN CORPUSCULAR HGB CONC 34.6 G/DL (33.0-37.0); MEAN CORPUSCULAR VOLUME 84.9 FL (80.0-94.0); MEAN PLATELET VOLUME 9.8 FL (7.4-10.4); PLATELET COUNT 473 /CUMM (130-400); RBC DISTRIBUTION WIDTH 16.2 % (11.5-14.5); RED BLOOD CELL CT 2.92 /CUMM (4.70-6.10); WHITE BLOOD CELL COUNT 24.2 /CUMM (4.8-10.8)
[2016-12-24] VITALS: BP 124/64
[2016-12-24 04:58] LABS: ABSOLUTE BASOPHIL COUNT 0 /CUMM (0.0-0.2); ABSOLUTE EOSINOPHIL COUNT 0.1 /CUMM (0.0-0.7); ABSOLUTE GRANULOCYTE CT 23.2 /CUMM (1.4-6.5); ABSOLUTE LYMPH COUNT 0.8 /CUMM (1.2-3.4); BASOPHIL % 0.2 % (0.0-2.0); EOSINOPHIL % 0.4 % (0-5); GRANULOCYTE % 92.1 % (42.2-75.2); MEAN CORPUSCULAR HGB 29.6 PG (27.0-31.0); MEAN CORPUSCULAR HGB CONC 34.4 G/DL (33.0-37.0); MEAN PLATELET VOLUME 9.6 FL (7.4-10.4); PLATELET COUNT 467 /CUMM (130-400); WHITE BLOOD CELL COUNT 25.1 /CUMM (4.8-10.8)
[2016-12-24 05:17] LABS: PT 16.8 SEC (9.4-12.5); PTT 35 SEC (25-37)
--- NOTE | 2016-12-24 05:52 | PN- General Surgery ---
See Addendum Subjective Subjective: The patient was seen this morning. He remains ventilated and agitated. He still spiking temperatures with a MAXIMUM TEMPERATURE of 1.3. Per nursing his 0G tube appears to be ascertaining him as he attempts to remove it. Objective Vital Signs and I&Os Vital Signs Date Time Temp Pulse Resp B/P Pulse O2 O2 Flow FiO2 Ox Delivery Rate 12/24 0523 40 12/24 0400 94 Ventilator 40% 12/24 0316 40 12/24 0159 99.1 12/24 0029 101.0 12/24 0007 40 12/24 0000 94 Ventilator 40% 12/24 0000 100.8 108 28 124/64 94 Ventilator 40% 12/23 2210 40 12/23 2000 97 Ventilator 40% 12/23 1950 40 12/23 1610 40 12/23 1600 99.1 105 21 128/70 96 Ventilator 40% 12/23 1600 94 Ventilator 40% 12/23 1545 99.1 12/23 1430 102.2 12/23 1356 40 12/23 1200 96 Ventilator 40% 12/23 1121 40 12/23 1030 98.0 12/23 1025 99.9 12/23 1025 98.0 12/23 0907 102.9 12/23 0837 40 12/23 0800 101.9 12/23 0800 102.2 12/23 0800 102.9 104 22 100/70 98 Ventilator 40% 12/23 0800 98 Ventilator 40% Intake & Output 12/24 0800 12/24 0000 12/23 1600 12/23 0800 12/23 0000 12/22 1600 Intake Total 838.2 1183.0 656.7 1105.2 1300.0 Output Total 800 1210 940 555 1700 Balance 38.2 -27.0 -213.3 430.2 120.0 Intake, Blood 393 80 Product Intake, IV 326.8 464 107.6 78 501 Intake, Lipid 0 72.3 119.0 Intake, Oral 0 0 0 0 Intake, Other 110 60 Intake, 511.4 609 549.1 561.9 540 TPN/PPN Output, 350 550 450 50 250 Gastric Drainage Output, Stool 0 10 20 25 30 Output, Urine 450 650 400 600 900 Patient 208 lb 218 lb Weight Physical Exam: General: On a vent and restless Skin: Warm and dry Abdomen: Softly distended, nontender, bowel sounds scant. Colostomy is pink and viable with scant drainage in the bag. The midline incision has surgical clips which are intact and packing in between. There is still a moderate amount of seropurulent drainage on the dressings. Extremities: Bilateral lower extremities are warm with some edema Assessment/Plan Assessment/Plan Assessment: 89-year-old male status post exploratory laparotomy and Kirkland's procedure for perforated bowel. The patient's postoperative course has been prolonged with multiple ongoing medical issues. The patient still has a postoperative ileus and is spiking temperatures without a obvious definable source. Plan: Continue TPN and OG tube decompression Daily wound and colostomy care Continue antibiotics Total respiratory care Follow-up medical and specialty consultation recommendations Core Measures/Miscellaneous Edward Catheter Date In: 12/02/16 Venous Thromboembolism VTE Risk Factors: Acute medical illness, Age > 40, Surgery VTE Contraindications: No Contraindications VTE Prophylaxis Ordered Inpt Mech & Pharm VTE Diagnosis: No Beta Abelardo Is Beta Abelardo a Home Med? No Antibiotics Is Patient on Antibiotics? Yes If Yes: infection
--- NOTE | 2016-12-24 07:48 | PN- Hematology ---
Subjective Subjective: He is on ventilator and sedated. Review of Systems: Unable to be obtained due to sedation. Objective Vital Signs and I&Os Vital Signs Date Time Temp Pulse Resp B/P Pulse O2 O2 Flow FiO2 Ox Delivery Rate 12/24 0523 40 12/24 0400 94 Ventilator 40% 12/24 0316 40 12/24 0159 99.1 12/24 0029 101.0 12/24 0007 40 12/24 0000 94 Ventilator 40% 12/24 0000 100.8 108 28 124/64 94 Ventilator 40% 12/23 2210 40 12/23 2000 97 Ventilator 40% 12/23 1950 40 12/23 1610 40 12/23 1600 99.1 105 21 128/70 96 Ventilator 40% 12/23 1600 94 Ventilator 40% 12/23 1545 99.1 12/23 1430 102.2 12/23 1356 40 12/23 1200 96 Ventilator 40% 12/23 1121 40 12/23 1030 98.0 12/23 1025 99.9 12/23 1025 98.0 12/23 0907 102.9 12/23 0837 40 12/23 0800 101.9 12/23 0800 102.2 12/23 0800 102.9 104 22 100/70 98 Ventilator 40% 12/23 0800 98 Ventilator 40% Intake & Output 12/24 0800 12/24 0000 12/23 1600 12/23 0800 12/23 0000 12/22 1600 Intake Total 50 838.2 1183.0 656.7 1105.2 1300.0 Output Total 576 297 9226 376 427 2413 Balance -820 38.2 -27.0 -213.3 430.2 120.0 Intake, Blood 393 80 Product Intake, IV 326.8 464 107.6 78 501 Intake, Lipid 0 72.3 119.0 Intake, Oral 0 0 0 0 0 Intake, Other 50 110 60 Intake, 511.4 609 549.1 561.9 540 TPN/PPN Output, 400 350 550 450 50 250 Gastric Drainage Output, Stool 20 0 10 20 25 30 Output, Urine 450 450 650 400 600 900 Patient 94.404 kg 98.94 kg Weight Physical Exam General Appearance: sedated, obese Head: atraumatic Ears, Nose, Throat: normal pharynx Neck: supple Respiratory: rhonchi, tracheostomy in place on ventilator Cardiovascular: tachycardia Abdomen: distention, midline incision Extremities: pedal edema (2+ bilateral) Neurologic/Psychiatric: sedated Current Medications: Current Medications Sig/Ar Start time Last Medication Dose Route Stop Time Status Admin Acetaminophen 640 MG Q4P PRN 12/23 1415 12/24 PO 0029 Acetaminophen 640 MG Q4-6 PRN PRN 12/19 1430 WV 12/23 PO 0907 Albuterol Sulfate 3 ML EVERY 4 HRS/AWAKE 12/06 1600 12/23 INH 202 Fentanyl Citrate 1,000 MCG Q10H 12/21 0900 12/24 Sodium Chloride 250 ML IV 0004 Fluconazole 400 MG DAILY 12/18 1000 12/23 Sodium Chloride 200 ML IV 0907 Fluconazole 200 MG DAILY 12/18 1000 12/23 Sodium Chloride 100 ML IV 1159 Furosemide 40 MG DAILY 12/20 1000 12/23 IV 0906 Heparin Sodium 5,000 UNIT Q8 12/02 2200 WV 12/22 (Porcine) SC 1351 Ipratropium [place] 2.5 ML EVERY 4 HRS/AWAKE 12/06 1600 12/23 INH 202 Lorazepam 1 MG Q4P PRN 12/13 1715 12/22 IV 1220 Meropenem 1 GM Q8H 12/15 1000 12/24 IV 0147 Ondansetron HCl 4 MG Q6P PRN 12/02 1800 12/22 IV 1233 Pantoprazole Sodium 40 MG DAILY 12/02 2200 12/23 IV 0907 Petrolatum 1 CECY DAILY NEEDED PRN 12/11 2215 12/23 OPH 1532 Total Parenteral 1 UNIT 12/23 190 12/23 Nutrition IV 12/24 1859 1957 Total Parenteral 1 UNIT 12/22 1900 WV 12/22 Nutrition IV 12/23 1859 1842 Vancomycin HCl 1,000 MG 0 12/23 1700 12/23 Dextrose/Water 250 ML IV 2000 Vancomycin HCl 1,000 MG DAILY 12/22 1645 WV 12/22 Dextrose/Water 250 ML IV 1705 Results Last 24 Hours of Lab Results: Laboratory Tests 12/24 12/23 0417 2227 Chemistry Sodium (137 - 145 mmol/L) 141 Potassium (3.5 - 5.1 mmol/L) 4.3 Chloride (98 - 107 mmol/L) 98 Carbon Dioxide (22 - 30 mmol/L) 30 Anion Gap (5 - 16) 14 BUN (9 - 20 mg/dL) 49 H Creatinine (0.7 - 1.2 mg/dL) 1.4 H Estimated GFR (>60 ml/min) 48 L Glucose (65 - 99 mg/dL) 212 H Calcium (8.4 - 10.2 mg/dL) 7.8 L Phosphorus (2.5 - 4.5 mg/dL) 4.9 H Magnesium (1.6 - 2.3 mg/dL) 2.1 Total Bilirubin (0.2 - 1.3 mg/dL) 10.3 H AST (17 - 59 U/L) 33 ALT (21 - 72 U/L) 29 Albumin (3.5 - 5.0 g/dL) 2.0 L Coagulation PT (9.4 - 12.5 SEC) 16.8 H INR (0.90 - 1.17) 1.61 H APTT (25 - 37 SEC) 35 Fibrinogen Activity (200 - 393 MG/DL) 572 H Fibrin Degrad Products (< 10 ug/ml) > 40 ug/ml H Cancelled D-Dimer (70 - 232 ng/ml) 2686 H Hematology CBC w Diff MAN DIFF ORDERED WBC (4.8 - 10.8 /CUMM) 25.1 H RBC (4.70 - 6.10 /CUMM) 2.90 L Hgb (14.0 - 18.0 G/DL) 8.6 L Hct (42 - 52 %) 25.0 L MCV (80.0 - 94.0 FL) 86.0 MCH (27.0 - 31.0 PG) 29.6 RDW (11.5 - 14.5 %) 16.0 H Plt Count (130 - 400 /CUMM) 467 H MPV (7.4 - 10.4 FL) 9.6 Gran % (42.2 - 75.2 %) 92.1 H Lymphocytes % (20.5 - 51.1 %) 3.2 L Monocytes % (1.7 - 9.3 %) 4.1 Eosinophils % (0 - 5 %) 0.4 Basophils % (0.0 - 2.0 %) 0.2 Absolute Granulocytes (1.4 - 6.5 /CUMM) 23.2 H Segmented Neutrophils (42.2 - 75.2 %) 90 H Band Neutrophils (0.0 - 5.0 %) 4 Absolute Lymphocytes (1.2 - 3.4 /CUMM) 0.8 L Monocytes (1.7 - 9.3 %) 4 Absolute Monocytes (0.10 - 0.60 /CUMM) 1.0 H Absolute Eosinophils (0.0 - 0.7 /CUMM) 0.1 Basophils (0.0 - 2.0 %) 1 Absolute Basophils (0.0 - 0.2 /CUMM) 0 Metamyelocytes (0.0 - 1.0 %) 1 Platelet Estimate (ADEQUATE) INCREASED Polychromasia 1+ Poikilocytosis 2+ Target Cells FEW Ovalocytes 1+ Stomatocytes 1+ PUBS MCHC (33.0 - 37.0 G/DL) 34.4 Other Body Source Fld Total RBCs Counted (%) 100 12/23 12/23 2204 0948 Chemistry Lactate Dehydrogenase (313 - 618 U/L) 696 H Hematology CBC w Diff MAN DIFF ORDERED WBC (4.8 - 10.8 /CUMM) 24.2 H RBC (4.70 - 6.10 /CUMM) 2.92 L Hgb (14.0 - 18.0 G/DL) 8.6 L Hct (42 - 52 %) 24.8 L MCV (80.0 - 94.0 FL) 84.9 MCH (27.0 - 31.0 PG) 29.4 RDW (11.5 - 14.5 %) 16.2 H Plt Count (130 - 400 /CUMM) 473 H MPV (7.4 - 10.4 FL) 9.8 Gran % (42.2 - 75.2 %) 91.6 H Lymphocytes % (20.5 - 51.1 %) 3.6 L Monocytes % (1.7 - 9.3 %) 4.2 Eosinophils % (0 - 5 %) 0.3 Basophils % (0.0 - 2.0 %) 0.3 Absolute Granulocytes (1.4 - 6.5 /CUMM) 22.1 H Absolute Lymphocytes (1.2 - 3.4 /CUMM) 0.9 L Absolute Monocytes (0.10 - 0.60 /CUMM) 1.0 H Absolute Eosinophils (0.0 - 0.7 /CUMM) 0.1 Absolute Basophils (0.0 - 0.2 /CUMM) 0.1 Platelet Estimate (ADEQUATE) ADEQUATE Poikilocytosis 3+ Microcytic Cells 1+ Target Cells 1+ Stomatocytes 3+ PUBS MCHC (33.0 - 37.0 G/DL) 34.6 Retic Count (0.5 - 2.0 %) 4.83 H Recent Imaging Studies: abdomen x-ray 12/23/2016: Multiple gas-filled loops of small and large bowel are redemonstrated, overall suggestive of ileus. Assessment/Plan Assessment/Recommendations: Mr. Calvo is an 89-year-old male with asthma and hypertension who presented to the ED with perforated viscus with resulting peritonitis status post surgery with Henny's procedure. His hospitalization has been complicated by hypotension, respiratory failure, and sepsis. He continues to be febrile is currently on antibiotics. He has been noted to have persistent anemia despite transfusion. He has received 3 units of pRBC since admission. Blood work demonstrated normal haptoglobin, mildly elevated LDH in the 600s, elevated bilirubin (majority direct), negative NAINA, and normal AST/ALT. His iron studies demonstrated low iron, low TIBC, and elevated ferritin. This is related anemia of chronic inflammation. His renal function is mildly decreased. These findings is less suggestive of hemolytic anemia. This is likely related to myelosuppression from chronic inflammation, infection, and medication related. He has no obvious bleeding grossly and on CT on 12/22/2016. He does not have splenomegaly. Reticulocyte is low for the degree of anemia. He has some low level of DIC as expected with infection. He has a reactive leukocytosis and thrombocytosis. He may just need supportive care for now for anemia. Recommendations: 1. Limits blood draw if possible 2. Consider more restrictive transfusion parameter (transfuse when Hgb<7) Please call [phone] with any questions or concerns. Problem List: 1. Anemia 2. Peritonitis 3. Perforated abdominal viscus
[2016-12-24 08:00] VITALS: BP 118/66
--- NOTE | 2016-12-24 08:06 | RADIOLOGY REPORT ---
EXAMINATION: XR PORTABLE CHEST CLINICAL INFORMATION: Respiratory failure. COMPARISON: 12/23/2016. TECHNIQUE: Portable view of the chest was obtained. FINDINGS: Tracheostomy tube is again identified. The proximal to midportion of an enteric tube is also seen, however is not visualized distally, tip not identified. Multiple cardiac leads are again noted. Stable appearing cardiomediastinal silhouette. No definite effusion is seen. Lungs remain well expanded. No focal infiltrate. No pneumothorax or pulmonary edema. IMPRESSION: Stable appearing chest x-ray, nasogastric tube is not visualized distally. Likely technical.
--- NOTE | 2016-12-24 08:30 | NUR ---
REC'D THE PT RECEIVING MECHANICAL VENTILATION VIA A #7 PORTEX TRACH PER THE MD ORDER. PT'S BS HAVE SCATTERED RHONCHI WELL EXP WHEEZES. O2 SAT IS 95-98% ON AN FIO2 OF 40%. PT WAS ON A FENTANYL GTT AT 25MCG/HR OR 6.3ML/HR INFUSING VIA THE CLAUDIO PORT OF THE BILLY TRIPLE LUMEN PICC. RATE DECREASED TO 12.5MCG/HR OR 3.1ML/HR AT THIS TIME PER DR SCHULTE. SAS IS A 4, OPENS EYES TO BOTH VERBAL AND TACTILE STIMULI. SÁNCHEZ. PT IS IN A ST WITHOUT ECTOPY PER THE BI CONSULTANT. 1+ EDEMA TO BLE WELL TRUNK. ABD IS DISTENDED AND FIRM WITH VERY HYPOACTIVE BOWEL SOUNDS ONLY ON THE R SIDE. OGT AT 50CM TO THE LIP AND IS TO LWS, DRAINING BILIOUS FLUID. L SIDED COLOSTOMY WITH FLUSHED LG STOMA, DRAINING WATERY MUCUSY GREEN FLUID. REMAINS ON TPN ONLY INFUSING AT 89ML/HR VIA THE WHITE PORT OF THE PICC. INTRA ABDOMINAL PRESSURE IS 11. DR SCHULTE AWARE. ANN IN PLACE DRAINING ORANGE URINE WITH SEDIMENT.
--- NOTE | 2016-12-24 08:35 | PN- Resident CRCU ---
Subjective HPI/CRCU Issues: Patient was seen and examined. Patient is arousable to verbal and tactile stimulation. He is unable to provide any review of systems. Patient is ventilated through the tracheostomy. Patient is on fentanyl as 25 mcg/h, the plan is to go down to 0. No sign of infection or bleeding around his IVs. Patient is jaundiced. He is giving plenty amounts of bilirus fluid through OG suction Objective Vital Signs & I&O Last 8 Hrs of Vitals and I&O: Intake & Output 12/24 1600 Intake Total Output Total Balance Patient 95.056 kg Weight Exam General Appearance: sedated, intubated Head: atraumatic, normal appearance Respiratory: rhonchi brathing on the right side more than left Cardiovascular: regular rate/rhythm Gastrointestinal: tens, distended, decreased bowel sounds, surgical incision with clips on place Extremities: +1 edema on lower extremity bilaterally Weaning Parameters NIF: 42 Minute Volume: 13 Resp rate: 24 Vt: 520 Heart Rate: 107 Weaning Schedule Start Time: 0845 Minute Volume: 9.58 Resp Rate: 22 Vt: 518 Heart Rate: 106 End Time: 0848 Minute Volume: 12.1 Resp Rate: 47 Vt: 218 Heart Rate: 110 Current Medications: Current Medications Sig/Ar Start time Last Medication Dose Route Stop Time Status Admin Acetaminophen 640 MG Q4P PRN 12/23 1415 AC 12/24 PO 0029 Albuterol Sulfate 3 ML EVERY 4 HRS/AWAKE 12/06 1600 AC 12/24 INH 1624 Fentanyl Citrate 1,000 MCG Q10H 12/21 0900 AC 12/24 Sodium Chloride 250 ML IV 0004 Fluconazole 400 MG DAILY 12/18 1000 AC 12/24 Sodium Chloride 200 ML IV 1130 Fluconazole 200 MG DAILY 12/18 1000 AC 12/24 Sodium Chloride 100 ML IV 1011 Furosemide 40 MG DAILY 12/20 1000 DC 12/24 IV 1010 Heparin Sodium 5,000 UNIT Q8 12/24 1400 AC 12/24 (Porcine) SC 1451 Ipratropium [place] 2.5 ML EVERY 4 HRS/AWAKE 12/06 1600 AC 12/24 INH 1624 Lorazepam 2 MG ONE ONE 12/24 1300 DC 12/24 IV 12/24 1301 1153 Lorazepam 1 MG Q4P PRN 12/13 1715 AC 12/22 IV 1220 Meropenem 1 GM Q8H 12/15 1000 AC 12/24 IV 1011 Ondansetron HCl 4 MG Q6P PRN 12/02 1800 AC 12/22 IV 1233 Pantoprazole Sodium 40 MG DAILY 12/02 2200 AC 12/24 IV 1010 Petrolatum 1 CECY DAILY NEEDED PRN 12/11 2215 AC 12/23 OPH 1532 Total Parenteral 1 UNIT 12/24 1900 AC Nutrition IV 12/24 1901 Total Parenteral 1 UNIT 12/23 1900 AC 12/23 Nutrition IV 12/24 Total Parenteral 1 UNIT 12/22 1900 DC 12/22 Nutrition IV 12/23 185 184 Vancomycin HCl 1,000 MG 17012/23 1700 AC 12/24 Dextrose/Water 250 ML IV 1629 Impression/Plan Impression/Problem List Impression: 89/M with PMH of asthma, HTN, bilateral inguinal hernia s/p repair 30 years ago presented to [facility] on 12/12/15 c/o acute abdominal pain. He was found to have acute perforation of sigmoid colon complicated by peritonitis. He underwent emergent surgery with Henny's procedure. He was subsequently sent to ICU for hemodynamic stabilization, further care as patient is at high risk for infection/respiratory failure post extubation. Today he is still on ventilated through tracheostomy, slightly arousable, and spiking fevers. He has fast rate and slightly low blood pressure Plan Respiratory: #Respiratory failure. Patient has history of COPD. * On fentanyl drip, as a rate of 25/h . Fentanyl drip to be weaned down to off today. * Patient is on mechanically ventilated through tracheostomy. His ventilation sittings are tidal volume to 500 and respiratory rate of 16. Infectious Diseases: #Recurrent Fever explaratory laparotomy. Post op day #21 Underwent repeat drainage during ICU stay. OR cultures was sent and was positive for Gram postive cocci and gram negative rods. * He is still febrile with Tmax of 101.9 yesterday. WBCs today is 22.7 * we'll cont' IV meropenem Q8 1gm based on his old culture and sensitivity. * Continue Fluconazol 600 daily. * We will cont' vancomycin 1 g daily * panculture, will follow the results. * C. difficile, we will follow the results * We will send the patient for IR guided paracentesis so we can culture that fluid * We will continue liq acetaminophen and cooling blankets when necessary. Cardiovascular: #New onset A. fib postoperativey (resolved). Patient developed A. fib post operative, most likely patient was on stress because of sepsis. He was started on amiodarone drip, patient then converted back to normal sinus rhythm after which a major on trip was discontinued. Currently he is maintaining normal sinus rhythm #New onset bilateral lower extremity edema. Bilateral lower extremity Doppler was done to exclude DVTs as a possible explanation. Results came back negative for DVTs. * we'll keep negative balance #Right Cephalic vein thrombosis Patient was found to have superficial thrombosis in right cephalic vein. He had a peripheral line in that region at the time of surgery. This thrombosis is a superficial and most likely will not lead to any DVTs. * Warm compressors without any anticoagulation for now. Hematology: Patient H&H is dropping even after blood transfusion. patient LDH is highly elevated, total bilirubin is elevated(hemolytic anemia). * Patient will receive one pack of red blood cell today * We'll repeat CBC after he finished blood transfusion and tomorrow morning * We consulted hematology. Metabolic: #JUANA (Resolved) Today creatinine increased to 1.2 from 1.1 yesterday. At some point during this admission patient's creatinine went up to 1.6. #Fluid balance * since admission total intake is still higher than total output. * We will monitor his fluid balance. * We'll hold IV Lasix today Alimentary: #Hyperbilirubinemia Hematology believe it's not because of hemodialysis. X-ray was done and showed or lytic ileus however surgery believe that no surgical intervention will be needed now. Is the pattern looks like obstructive gallbladder pathology. * NPO with NG decompression * TPN - day 11. * we'll cont' GI prophylaxis. * Colostomy bag in place with active drainage * Bowel sounds present. * Surgery is on board we will follow their recommendation. * We will order HIDA scan rule out obstructive hyperbilirubinemia Neurological: Patient is sedated and ventilated through tracheostomy Patient is arousable to verbal and tactile stimulus. Endocrinology No endocrinology issue at the time SKI No current skin issues Diet patient is nothing by mouth * We'll continue TPN DVT/Prophylaxis: sc lovenox Code Status: Full Code Problem List: 1. Peritonitis Pain Ratin Tomorrow's Labs & Rationales: cbc, icu bundle, xray Plan DVT/Prophylaxis: sc lovenox Code Status: Full Code
--- NOTE | 2016-12-24 09:21 | PN- CRCU ---
Subjective HPI/Critical Care Issues: The patient remains on the ventilator. He remains intermittently febrile. His Tmax was 101.2. He had an abdominal x-ray that demonstrated an ileus. He remains jaundiced with an increasing bilirubin. Objective Current Medications: Current Medications Sig/Ar Start time Last Medication Dose Route Stop Time Status Admin Acetaminophen 640 MG Q4P PRN 12/23 1415 AC 12/24 PO 0029 Acetaminophen 640 MG Q4-6 PRN PRN 12/19 1430 DC 12/23 PO 0907 Albuterol Sulfate 3 ML EVERY 4 HRS/AWAKE 12/06 1600 AC 12/24 INH 0803 Fentanyl Citrate 1,000 MCG Q10H 12/21 0900 AC 12/24 Sodium Chloride 250 ML IV 0004 Fluconazole 400 MG DAILY 12/18 1000 AC 12/23 Sodium Chloride 200 ML IV 0907 Fluconazole 200 MG DAILY 12/18 1000 AC 12/23 Sodium Chloride 100 ML IV 1159 Furosemide 40 MG DAILY 12/20 1000 AC 12/23 IV 0906 Heparin Sodium 5,000 UNIT Q8 12/02 2200 DC 12/22 (Porcine) SC 1351 Ipratropium [place] 2.5 ML EVERY 4 HRS/AWAKE 12/06 1600 AC 12/24 INH 0803 Lorazepam 1 MG Q4P PRN 12/13 1715 AC 12/22 IV 1220 Meropenem 1 GM Q8H 12/15 1000 AC 12/24 IV 0147 Ondansetron HCl 4 MG Q6P PRN 12/02 1800 AC 12/22 IV 1233 Pantoprazole Sodium 40 MG DAILY 12/02 2200 AC 12/23 IV 0907 Petrolatum 1 CECY DAILY NEEDED PRN 12/11 2215 12/23 OPH 1532 Total Parenteral 1 UNIT 12/23 1900 AC 12/23 Nutrition IV 12/24 185 1957 Total Parenteral 1 UNIT 12/22 1900 DC 12/22 Nutrition IV 12/23 185 1842 Vancomycin HCl 1,000 MG 1700 12/23 1700 AC 12/23 Dextrose/Water 250 ML IV 2000 Vital Signs & I&O Last 24 Hrs of Vitals and I&O: Vital Signs Date Time Temp Pulse Resp B/P Pulse O2 O2 Flow FiO2 Ox Delivery Rate 12/24 0756 40 12/24 0523 40 12/24 0400 94 Ventilator 40% 12/24 0316 40 12/24 0159 99.1 12/24 0029 101.0 12/24 0007 40 12/24 0000 94 Ventilator 40% 12/24 0000 100.8 108 28 124/64 94 Ventilator 40% 12/23 2210 40 12/23 2000 97 Ventilator 40% 12/23 1950 40 12/23 1610 40 12/23 1600 99.1 105 21 128/70 96 Ventilator 40% 12/23 1600 94 Ventilator 40% 12/23 1545 99.1 12/23 1430 102.2 12/23 1356 40 12/23 1200 96 Ventilator 40% 12/23 1121 40 12/23 1030 98.0 12/23 1025 99.9 12/23 1025 98.0 12/23 0907 102.9 Intake & Output 12/24 1600 12/24 0800 12/24 0000 Intake Total 50 838.2 Output Total 870 800 Balance -820 38.2 Intake, IV 326.8 Intake, Oral 0 0 Intake, Other 50 Intake, 511.4 TPN/PPN Output, 400 350 Gastric Drainage Output, Stool 20 0 Output, Urine 450 450 Exam General Appearance: sedated, intubated Head: atraumatic, normal appearance Neck: supple Respiratory: scattered bilateral rhonchi, the lungs expand symmetrically and the trachea is midline Cardiovascular: regular rate/rhythm (no murmur) Abdomen: distended with a clean incision, no erythema or drainage, colostomy has a small amount of liquid output Extremities: 1+ pitting edema Skin: intact, warm/dry Results Last 24 Hrs of Lab Results: Laboratory Tests 12/24/16 0417: Anion Gap 14, Estimated GFR 48 L, Glucose 212 H, Calcium 7.8 L, Phosphorus 4.9 H, Magnesium 2.1, Total Bilirubin 10.3 H, AST 33, ALT 29, Albumin 2.0 L, PT 16.8 H, INR 1.61 H, APTT 35, Fibrinogen Activity 572 H, Fibrin Degrad Products > 40 ug/ml H, D-Dimer 2686 H, CBC w Diff MAN DIFF ORDERED, RBC 2.90 L, MCV 86.0, MCH 29.6, RDW 16.0 H, MPV 9.6, Gran % 92.1 H, Lymphocytes % 3.2 L, Monocytes % 4.1, Eosinophils % 0.4, Basophils % 0.2, Absolute Granulocytes 23.2 H, Segmented Neutrophils 90 H, Band Neutrophils 4, Absolute Lymphocytes 0.8 L, Monocytes 4, Absolute Monocytes 1.0 H, Absolute Eosinophils 0.1, Basophils 1, Absolute Basophils 0, Metamyelocytes 1, Platelet Estimate INCREASED , Polychromasia 1+, Poikilocytosis 2+, Target Cells FEW, Ovalocytes 1+, Stomatocytes 1+, PUBS MCHC 34.4, Fld Total RBCs Counted 100 12/23/162226: Fibrin Degrad Products Cancelled 12/23/162203: CBC w Diff MAN DIFF ORDERED, RBC 2.92 L, MCV 84.9, MCH 29.4, RDW 16.2 H, MPV 9.8, Gran % 91.6 H, Lymphocytes % 3.6 L, Monocytes % 4.2, Eosinophils % 0.3, Basophils % 0.3, Absolute Granulocytes 22.1 H, Absolute Lymphocytes 0.9 L, Absolute Monocytes 1.0 H, Absolute Eosinophils 0.1, Absolute Basophils 0.1, Platelet Estimate ADEQUATE, Poikilocytosis 3+, Microcytic Cells 1+, Target Cells 1+, Stomatocytes 3+, PUBS MCHC 34.6 12/23/16 0948: Lactate Dehydrogenase 696 H, Retic Count 4.83 H Impression/Plan Impression/Plan Impression/Plan: 1. S/P exploratory laparotomy and Hartmans procedure, s/p repeat abdominal washout, with persistent fevers. He remains on meropenem, Diflucan and Vanco. 2. Respiratory failure, peak airway pressures elevated in the setting of increased abdominal pressure. 3. 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 4. Malnutrition. 5. Superficial cephalic vein thrombosis, no DVT. 6. Anemia without bleeding. 7. Worsening bilirubinemia, again concerning for acalculous cholecystitis. Discussed with GI, will order a HIDA scan. 8. Abdominal ileus. Recommendations: * Will order HIDA scan for further evaluation. Unable to do MRCP due to mechanical ventilation. * Follow up GI recommendations. * IR drainage of intra-abdominal fluid collection - Dr. Ceballos will do today. * Hematology input reviewed and appreciated, no evidence of hemolysis. * Continue meropenem, vanco and Diflucan as per ID. * Continue current ventilator settings. * TRC/nebs. * Hold IV Lasix today. * Cooling blanket as necessary to control temps. * Fentanyl drip to be weaned down to off today. * Continue DVT and GI prophylaxis. Restart subcutaneous heparin. * Continue all supportive care. Code Status: Full Code
--- NOTE | 2016-12-24 09:57 | PN- Infect Dx ---
Subjective Subjective: MAXIMUM TEMPERATURE 102.2 Objective Last 24 Hrs of Vital Signs/I&O Vital Signs Date Time Temp Pulse Resp B/P Pulse O2 O2 Flow FiO2 Ox Delivery Rate 12/24 0800 99.9 101 17 118/66 98 Ventilator 40% 12/24 0756 40 12/24 0523 40 12/24 0400 94 Ventilator 40% 12/24 0316 40 12/24 0159 99.1 12/24 0029 101.0 12/24 0007 40 12/24 0000 94 Ventilator 40% 12/24 0000 100.8 108 28 124/64 94 Ventilator 40% 12/23 2210 40 12/23 2000 97 Ventilator 40% 12/23 1950 40 12/23 1610 40 12/23 1600 99.1 105 21 128/70 96 Ventilator 40% 12/23 1600 94 Ventilator 40% 12/23 1545 99.1 12/23 1430 102.2 12/23 1356 40 12/23 1200 96 Ventilator 40% 12/23 1121 40 12/23 1030 98.0 12/23 1025 99.9 12/23 1025 98.0 Intake & Output 12/24 1600 12/24 0800 12/24 0000 Intake Total 50 838.2 Output Total 870 800 Balance -820 38.2 Intake, IV 326.8 Intake, Oral 0 0 Intake, Other 50 Intake, 511.4 TPN/PPN Output, 400 350 Gastric Drainage Output, Stool 20 0 Output, Urine 450 450 Physical Exam Other Physical Findings: He appears to respond to voice but is not following commands Lungs bilateral rhonchi Heart regular rhythm with no murmur Abdomen is distended, no obvious tenderness, incision clean, with no erythema or drainage; colostomy with a small amount of liquid stool Extremities 1+ edema both lower extremities; PICC in the left upper extremity with no inflammation at the site Edward catheter remains in place Results Last 24 Hours of Lab Results: Laboratory Tests 12/24 12/23 0417 2227 Chemistry Sodium (137 - 145 mmol/L) 141 Potassium (3.5 - 5.1 mmol/L) 4.3 Chloride (98 - 107 mmol/L) 98 Carbon Dioxide (22 - 30 mmol/L) 30 Anion Gap (5 - 16) 14 BUN (9 - 20 mg/dL) 49 H Creatinine (0.7 - 1.2 mg/dL) 1.4 H Estimated GFR (>60 ml/min) 48 L Glucose (65 - 99 mg/dL) 212 H Calcium (8.4 - 10.2 mg/dL) 7.8 L Phosphorus (2.5 - 4.5 mg/dL) 4.9 H Magnesium (1.6 - 2.3 mg/dL) 2.1 Total Bilirubin (0.2 - 1.3 mg/dL) 10.3 H AST (17 - 59 U/L) 33 ALT (21 - 72 U/L) 29 Albumin (3.5 - 5.0 g/dL) 2.0 L Coagulation PT (9.4 - 12.5 SEC) 16.8 H INR (0.90 - 1.17) 1.61 H APTT (25 - 37 SEC) 35 Fibrinogen Activity (200 - 393 MG/DL) 572 H Fibrin Degrad Products (< 10 ug/ml) > 40 ug/ml H Cancelled D-Dimer (70 - 232 ng/ml) 2686 H Hematology CBC w Diff MAN DIFF ORDERED WBC (4.8 - 10.8 /CUMM) 25.1 H RBC (4.70 - 6.10 /CUMM) 2.90 L Hgb (14.0 - 18.0 G/DL) 8.6 L Hct (42 - 52 %) 25.0 L MCV (80.0 - 94.0 FL) 86.0 MCH (27.0 - 31.0 PG) 29.6 RDW (11.5 - 14.5 %) 16.0 H Plt Count (130 - 400 /CUMM) 467 H MPV (7.4 - 10.4 FL) 9.6 Gran % (42.2 - 75.2 %) 92.1 H Lymphocytes % (20.5 - 51.1 %) 3.2 L Monocytes % (1.7 - 9.3 %) 4.1 Eosinophils % (0 - 5 %) 0.4 Basophils % (0.0 - 2.0 %) 0.2 Absolute Granulocytes (1.4 - 6.5 /CUMM) 23.2 H Segmented Neutrophils (42.2 - 75.2 %) 90 H Band Neutrophils (0.0 - 5.0 %) 4 Absolute Lymphocytes (1.2 - 3.4 /CUMM) 0.8 L Monocytes (1.7 - 9.3 %) 4 Absolute Monocytes (0.10 - 0.60 /CUMM) 1.0 H Absolute Eosinophils (0.0 - 0.7 /CUMM) 0.1 Basophils (0.0 - 2.0 %) 1 Absolute Basophils (0.0 - 0.2 /CUMM) 0 Metamyelocytes (0.0 - 1.0 %) 1 Platelet Estimate (ADEQUATE) INCREASED Polychromasia 1+ Poikilocytosis 2+ Target Cells FEW Ovalocytes 1+ Stomatocytes 1+ PUBS MCHC (33.0 - 37.0 G/DL) 34.4 Other Body Source Fld Total RBCs Counted (%) 100 12/23 12/23 2204 0948 Chemistry Lactate Dehydrogenase (313 - 618 U/L) 696 H Hematology CBC w Diff MAN DIFF ORDERED WBC (4.8 - 10.8 /CUMM) 24.2 H RBC (4.70 - 6.10 /CUMM) 2.92 L Hgb (14.0 - 18.0 G/DL) 8.6 L Hct (42 - 52 %) 24.8 L MCV (80.0 - 94.0 FL) 84.9 MCH (27.0 - 31.0 PG) 29.4 RDW (11.5 - 14.5 %) 16.2 H Plt Count (130 - 400 /CUMM) 473 H MPV (7.4 - 10.4 FL) 9.8 Gran % (42.2 - 75.2 %) 91.6 H Lymphocytes % (20.5 - 51.1 %) 3.6 L Monocytes % (1.7 - 9.3 %) 4.2 Eosinophils % (0 - 5 %) 0.3 Basophils % (0.0 - 2.0 %) 0.3 Absolute Granulocytes (1.4 - 6.5 /CUMM) 22.1 H Absolute Lymphocytes (1.2 - 3.4 /CUMM) 0.9 L Absolute Monocytes (0.10 - 0.60 /CUMM) 1.0 H Absolute Eosinophils (0.0 - 0.7 /CUMM) 0.1 Absolute Basophils (0.0 - 0.2 /CUMM) 0.1 Platelet Estimate (ADEQUATE) ADEQUATE Poikilocytosis 3+ Microcytic Cells 1+ Target Cells 1+ Stomatocytes 3+ PUBS MCHC (33.0 - 37.0 G/DL) 34.6 Retic Count (0.5 - 2.0 %) 4.83 H Last 24 Hours of Adrian Results: Blood cultures 2 December 21 negative Recent Imaging Studies: Chest x-ray December 24 without change Assessment/Plan Impression: Persistent fevers and leukocytosis despite continued treatment with Meropenem and Fluconazole now 12 days status post repeat laparotomy for drainage of intraperitoneal abscesses and 22 days status post his initial Kirkland's procedure for peritonitis secondary to a perforated viscus, with Vancomycin added empirically 2 days ago for possible sinusitis given the CT findings, though clinically there is little evidence for this, and his recent cultures remain negative. Have reviewed his CT scan with radiology, and there is a collection of fluid extending to his hernia, which is amenable to drainage; therefore feel that aspiration should be done to rule out an abscess. His bilirubin continues to increase, though the biliary tree on his recent right upper quadrant ultrasound and CT scan was unremarkable, and the possibility of acalculous cholecystitis has been raised. Suggestion: 1. Would pursue CT-guided aspiration of the collection seen on CT 2. Would pursue HIDA scan 3. Continue Vancomycin, Meropenem and Fluconazole
[2016-12-24 16:00] VITALS: BP 114/66
--- NOTE | 2016-12-24 16:17 | NUCLEAR MEDICINE REPORT ---
EXAMINATION: BILIARY TRACT IMAGING STUDY CLINICAL INFORMATION: Direct hyperbilirubinemia, patient on ventilator, suspected acalculous cholecystitis.. Patient's bilirubin greater than 10. COMPARISON: No previous biliary scan is available for comparison. Abdominal ultrasound dated 12/21/2016 is available for comparison. The diagnostic CT scan of the abdomen and pelvis, dated 12/22/2016, is available for comparison.. TECHNIQUE: Serial gamma scintillation camera images were obtained over the abdomen for a total observation period of 95 minutes following the intravenous administration of 5.1 mCi Tc-99m Choletec. FINDINGS: There is poor concentration of activity in the liver by throughout the study with very slow clearance of the cardiac blood pool which is still visible at 95 minutes post injection. Intensity of activity in the liver does not change significantly during the observation period of the study. No biliary activity is visualized at any time. Some residual radiopharmaceutical in the intravenous line in the patient's left arm used to inject radiopharmaceutical is noted. IMPRESSION: There is poor concentration of activity in the liver, and no biliary activity is visualized. This pattern can be due to either severe intrahepatic cholestasis due to diffuse hepatocellular disease, or high-grade or complete common bile duct obstruction. In the absence of anatomic imaging demonstrating an obstructing stone or biliary ductal dilatation on recent CT imaging in this patient, this pattern is most likely due to diffuse hepatocellular disease. In addition, the patient's very high bilirubin level would make visualization of biliary activity unlikely. Delayed imaging is not likely to be of any additional value. .
--- NOTE | 2016-12-24 16:37 | CT SCAN REPORT ---
CT SCAN GUIDED FLUID COLLECTION ASPIRATION : Left pelvis CLINICAL HISTORY: 89-year-old male with persistent fevers status post multiple abdominal surgeries. Small focal fluid collection identified within the left pelvis on recent cross-sectional imaging. Aspiration requested. COMPARISON: CT abdomen pelvis 12/22/2016 INTERVENTIONAL RADIOLOGIST: Parth Ceballos M.D. SEDATION: Intravenous conscious sedation was not required for today's procedure. 1% lidocaine was used for local anesthetic. DLP: 402 mgy-cm TECHNIQUE: Informed consent was obtained from the patient's daughter was obtained prior to the procedure. During this process, the procedure and potential alternatives were explained along with the intended outcome and benefits. The risks of the procedure including the possibility of an unsuccessful procedure, as well as the risk of not doing the procedure were discussed. The patient's daughter was given the opportunity to ask questions regarding the procedure and competent to make decisions. A signed consent form which documents this discussion was placed in the medical record. Following informed consent the patient was placed supine on the CT scanner table. Multiple preliminary images were obtained of the fluid collection in order to plan an appropriate approach. A time out procedure was performed. Using standard interventional and sterile technique an 18-gauge needle was introduced into the fluid collection. Great care was utilized to avoid adjacent structures including the bladder, bowel, vascular structures. A single pass was utilized. Approximately 80 mL of thin but cloudy yellow fluid was aspirated from the collection. The needle was removed. Good hemostasis was achieved. A sterile dressing was placed over the site. The fluid was sent to pathology for evaluation. The specimens were marked appropriately before sending to the laboratory. The patient tolerated the procedure well. There were no immediate complications. Patient left the department in stable condition after appropriate monitoring. IMPRESSION: Successful CT scan guided aspiration/drainage of left pelvic fluid collection.
[2016-12-25] VITALS: BP 104/60
[2016-12-25 05:22] LABS: ABSOLUTE BASOPHIL COUNT 0.1 /CUMM (0.0-0.2); ABSOLUTE EOSINOPHIL COUNT 0.1 /CUMM (0.0-0.7); ABSOLUTE GRANULOCYTE CT 20.7 /CUMM (1.4-6.5); ABSOLUTE LYMPH COUNT 1.1 /CUMM (1.2-3.4); ABSOLUTE MONOCYTE COUNT 0.9 /CUMM (0.10-0.60); BASOPHIL % 0.3 % (0.0-2.0); EOSINOPHIL % 0.4 % (0-5); GRANULOCYTE % 90.7 % (42.2-75.2); HEMATOCRIT 23.8 % (42-52); MEAN CORPUSCULAR HGB 29.6 PG (27.0-31.0); MEAN CORPUSCULAR HGB CONC 34.5 G/DL (33.0-37.0); MEAN CORPUSCULAR VOLUME 85.7 FL (80.0-94.0); MEAN PLATELET VOLUME 9.5 FL (7.4-10.4); PLATELET COUNT 442 /CUMM (130-400); RBC DISTRIBUTION WIDTH 16.5 % (11.5-14.5); RED BLOOD CELL CT 2.77 /CUMM (4.70-6.10); WHITE BLOOD CELL COUNT 22.9 /CUMM (4.8-10.8)
--- NOTE | 2016-12-25 06:07 | PN- General Surgery ---
See Addendum Subjective Subjective: Patient remains intubated with intermittent fevers. He underwent CT-guided drainage of pelvic abscess yesterday, with 80 mL of purulent drainage aspirated. He also had a HIDA scan due to increasing bilirubin levels, which was suggestive of cholestasis vs obstructive CBD stone vs hepatobiliary disease. Objective Vital Signs and I&Os Vital Signs Date Time Temp Pulse Resp B/P Pulse O2 O2 Flow FiO2 Ox Delivery Rate 12/25 0555 30 12/25 0550 35 12/25 0414 35 12/25 0400 100 Ventilator 35% 12/25 0326 40 12/25 0027 40 12/25 0000 98.3 84 20 104/60 96 Ventilator 40% 12/25 0000 96 Ventilator 40% 12/24 2234 99.4 12/24 2218 40 12/24 2123 101.3 12/24 2013 40 12/24 2000 95 Ventilator 40% 12/24 1624 40 12/24 1605 Ventilator 40% 12/24 1600 100.5 101 22 114/66 95 Ventilator 40% 12/24 1600 95 Ventilator 40% 12/24 1415 40 12/24 1200 99 Ventilator 40% 12/24 1040 40 12/24 0800 98 Ventilator 40% 12/24 0800 99.9 101 17 118/66 98 Ventilator 40% 12/24 0756 40 Intake & Output 12/25 0800 12/25 0000 12/24 1600 12/24 0800 12/24 0000 12/23 1600 Intake Total 589 1126 50 838.2 1183.0 Output Total 725 1630 510 519 5241 Balance -136 -504 -820 38.2 -27.0 Intake, IV 282 1126 326.8 464 Intake, Lipid 0 Intake, Oral 0 0 0 Intake, Other 65 50 110 Intake, 242 511.4 609 TPN/PPN Output, 325 375 400 350 550 Gastric Drainage Output, Stool 20 0 10 Output, Urine 400 1255 450 450 650 Patient 210 lb 208 lb Weight Physical Exam: General: Intubated, minimal response. Does not follow commands. Appears agitated during exam. Abdomen: Remains distended. Contrast is pink and viable with scant drainage bag. The midline incision still contains a large amount of purulent drainage at the inferior aspect. General: On a vent and restless Skin: Warm and dry Abdomen: Softly distended, nontender, bowel sounds scant. Colostomy is pink and viable with scant drainage in the bag. The midline incision has surgical clips which are intact and packing in between. There is still a moderate amount of seropurulent drainage on the dressings. Extremities: Bilateral lower extremities are warm with some edema Results Last 48 Hours of Labs: Laboratory Tests 12/25 12/24 0445 0417 Chemistry Sodium (137 - 145 mmol/L) 142 141 Potassium (3.5 - 5.1 mmol/L) 4.3 4.3 Chloride (98 - 107 mmol/L) 100 98 Carbon Dioxide (22 - 30 mmol/L) 30 30 Anion Gap (5 - 16) 12 14 BUN (9 - 20 mg/dL) 63 H 49 H Creatinine (0.7 - 1.2 mg/dL) 1.7 H 1.4 H Estimated GFR (>60 ml/min) 38 L 48 L Glucose (65 - 99 mg/dL) 174 H 212 H Calcium (8.4 - 10.2 mg/dL) 8.0 L 7.8 L Phosphorus (2.5 - 4.5 mg/dL) 5.1 H 4.9 H Magnesium (1.6 - 2.3 mg/dL) 2.2 2.1 Total Bilirubin (0.2 - 1.3 mg/dL) 11.4 H 10.3 H AST (17 - 59 U/L) 49 33 ALT (21 - 72 U/L) 33 29 Albumin (3.5 - 5.0 g/dL) 2.0 L 2.0 L Coagulation PT (9.4 - 12.5 SEC) 16.8 H INR (0.90 - 1.17) 1.61 H APTT (25 - 37 SEC) 35 Fibrinogen Activity (200 - 393 MG/DL) 572 H Fibrin Degrad Products (< 10 ug/ml) > 40 ug/ml H D-Dimer (70 - 232 ng/ml) 2686 H Hematology CBC w Diff MAN DIFF ORDERED MAN DIFF ORDERED WBC (4.8 - 10.8 /CUMM) 22.9 H 25.1 H RBC (4.70 - 6.10 /CUMM) 2.77 L 2.90 L Hgb (14.0 - 18.0 G/DL) 8.2 L 8.6 L Hct (42 - 52 %) 23.8 L 25.0 L MCV (80.0 - 94.0 FL) 85.7 86.0 MCH (27.0 - 31.0 PG) 29.6 29.6 RDW (11.5 - 14.5 %) 16.5 H 16.0 H Plt Count (130 - 400 /CUMM) 442 H 467 H MPV (7.4 - 10.4 FL) 9.5 9.6 Gran % (42.2 - 75.2 %) 90.7 H 92.1 H Lymphocytes % (20.5 - 51.1 %) 4.6 L 3.2 L Monocytes % (1.7 - 9.3 %) 4.0 4.1 Eosinophils % (0 - 5 %) 0.4 0.4 Basophils % (0.0 - 2.0 %) 0.3 0.2 Absolute Granulocytes (1.4 - 6.5 /CUMM) 20.7 H 23.2 H Segmented Neutrophils (42.2 - 75.2 %) 90 H Band Neutrophils (0.0 - 5.0 %) 4 Absolute Lymphocytes (1.2 - 3.4 /CUMM) 1.1 L 0.8 L Monocytes (1.7 - 9.3 %) 4 Absolute Monocytes (0.10 - 0.60 /CUMM) 0.9 H 1.0 H Absolute Eosinophils (0.0 - 0.7 /CUMM) 0.1 0.1 Basophils (0.0 - 2.0 %) 1 Absolute Basophils (0.0 - 0.2 /CUMM) 0.1 0 Metamyelocytes (0.0 - 1.0 %) 1 Platelet Estimate (ADEQUATE) ADEQUATE INCREASED Polychromasia 1+ 1+ Hypochromic-Microcytic 2+ Poikilocytosis 2+ Anisocytosis 1+ Target Cells FEW Ovalocytes 1+ Stomatocytes 1+ PUBS MCHC (33.0 - 37.0 G/DL) 34.5 34.4 Other Body Source Fld Total RBCs Counted (%) 100 12/23 12/23 12/23 2227 2204 0948 Chemistry Lactate Dehydrogenase (313 - 618 U/L) 696 H Coagulation Fibrin Degrad Products Cancelled Hematology CBC w Diff MAN DIFF ORDERED WBC (4.8 - 10.8 /CUMM) 24.2 H RBC (4.70 - 6.10 /CUMM) 2.92 L Hgb (14.0 - 18.0 G/DL) 8.6 L Hct (42 - 52 %) 24.8 L MCV (80.0 - 94.0 FL) 84.9 MCH (27.0 - 31.0 PG) 29.4 RDW (11.5 - 14.5 %) 16.2 H Plt Count (130 - 400 /CUMM) 473 H MPV (7.4 - 10.4 FL) 9.8 Gran % (42.2 - 75.2 %) 91.6 H Lymphocytes % (20.5 - 51.1 %) 3.6 L Monocytes % (1.7 - 9.3 %) 4.2 Eosinophils % (0 - 5 %) 0.3 Basophils % (0.0 - 2.0 %) 0.3 Absolute Granulocytes (1.4 - 6.5 /CUMM) 22.1 H Absolute Lymphocytes (1.2 - 3.4 /CUMM) 0.9 L Absolute Monocytes (0.10 - 0.60 /CUMM) 1.0 H Absolute Eosinophils (0.0 - 0.7 /CUMM) 0.1 Absolute Basophils (0.0 - 0.2 /CUMM) 0.1 Platelet Estimate (ADEQUATE) ADEQUATE Poikilocytosis 3+ Microcytic Cells 1+ Target Cells 1+ Stomatocytes 3+ PUBS MCHC (33.0 - 37.0 G/DL) 34.6 Retic Count (0.5 - 2.0 %) 4.83 H Recent Imaging Studies: HIDA scan on 12/24/2016: There is poor concentration of activity in the liver, and no biliary activity is visualized. This pattern can be due to either severe intrahepatic cholestasis due to diffuse hepatocellular disease, or high-grade or complete common bile duct obstruction. In the absence of anatomic imaging demonstrating an obstructing stone or biliary ductal dilatation on recent CT imaging in this patient, this pattern is most likely due to diffuse hepatocellular disease. In addition, the patient's very high bilirubin level would make visualization of biliary activity unlikely. Delayed imaging is not likely to be of any additional value. CT-guided drainage of pelvic abscess: Successful drainage of 80 mL of purulent fluid. No drain was left in place. Assessment/Plan Assessment/Plan Assessment: 89-year-old male status post exploratory laparotomy and Kirkland's procedure on 517 for perforated bowel. The patient's postoperative course has been prolonged with multiple ongoing medical issues. The patient still has a postoperative ileus and is spiking temperatures, despite CT-guided drainage yesterday. Plan: Continue TPN and OG tube decompression. Daily wound and colostomy care Continue antibiotics Total respiratory care Follow-up medical and specialty consultation recommendations Will discuss the results of HIDA scan with attending. Core Measures/Miscellaneous Edward Catheter Date In: 12/02/16 Venous Thromboembolism VTE Risk Factors: Acute medical illness, Age > 40, Surgery VTE Contraindications: No Contraindications VTE Prophylaxis Ordered Inpt Mech & Pharm VTE Diagnosis: No Beta Abelardo Is Beta Abelardo a Home Med? No Antibiotics Is Patient on Antibiotics? Yes If Yes: infection
[2016-12-25 08:00] VITALS: BP 94/58
--- NOTE | 2016-12-25 08:03 | RADIOLOGY REPORT ---
EXAMINATION: XR PORTABLE CHEST CLINICAL INFORMATION: Intubated. COMPARISON: Chest 12/24/2016. TECHNIQUE: Portable AP view of the chest was obtained. FINDINGS: There is a tracheostomy tube approximate 6.9 cm CM above the fernando. A nasogastric tube is suboptimally visualized however appears to be extending into this stomach. The heart size is borderline enlarged with increased pulmonary vascularity suggestive of vascular congestion or interstitial edema. No gross bony abnormality seen. IMPRESSION: Located tracheostomy tube tip. Interval increased hilar and parahilar markings suspicious of pulmonary vascular congestion or interstitial edema. Nasogastric tube appears to be below the diaphragm in stomach.
--- NOTE | 2016-12-25 09:08 | PN- Resident CRCU ---
Subjective HPI/CRCU Issues: Patient was seen and examined. Patient is arousable to verbal and tactile stimulation. He is unable to provide any review of systems. Patient is ventilated through the tracheostomy. Patient is not on any fentanyl today. No sign of infection or bleeding around his IVs. Patient is jaundiced. He is giving plenty amounts of bilirus fluid through OG suction. Objective Vital Signs & I&O Last 8 Hrs of Vitals and I&O: Intake & Output 12/25 1600 Intake Total Output Total Balance Patient 93.667 kg Weight Exam General Appearance: sedated, ventilator through tracheostomy Head: atraumatic, normal appearance, jaundiced Neck: normal inspection, supple Respiratory: rhonchi all over both lungs Cardiovascular: regular rate/rhythm Gastrointestinal: distended, tense, surgical incision with clips in place. Some thick white to yellow discharge Extremities: bilateral lower extremity edema Skin: jaundice Weaning Parameters NIF: 42 Minute Volume: 13 Resp rate: 24 Vt: 520 Heart Rate: 107 Weaning Schedule Start Time: 0835 Minute Volume: 13 Resp Rate: 26 Vt: 559 Heart Rate: 98 End Time: 0839 Minute Volume: 17 Resp Rate: 56 Vt: 200 Heart Rate: 120 Current Medications: Current Medications Sig/Ar Start time Last Medication Dose Route Stop Time Status Admin Acetaminophen 640 MG Q4P PRN 12/23 1415 AC 12/25 PO 1223 Albuterol Sulfate 3 ML EVERY 4 HRS/AWAKE 12/06 1600 AC 12/25 INH 1112 Fat Emulsion 250 ML ONCE ONE 12/25 1900 AC Intravenous IV 12/26 1459 Fentanyl Citrate 1,000 MCG Q10H 12/21 0900 DC 12/24 Sodium Chloride 250 ML IV 0004 Fluconazole 400 MG DAILY 12/18 1000 AC 12/25 Sodium Chloride 200 ML IV 1030 Fluconazole 200 MG DAILY 12/18 1000 AC 12/25 Sodium Chloride 100 ML IV 1222 Heparin Sodium 5,000 UNIT Q8 12/24 1400 AC 12/25 (Porcine) SC 0636 Ipratropium [place] 2.5 ML EVERY 4 HRS/AWAKE 12/06 1600 AC 12/25 INH 1113 Lorazepam 1 MG Q4P PRN 12/13 1715 AC 12/22 IV 1220 Meropenem 1 GM Q8H 12/15 1000 AC 12/25 IV 1030 Ondansetron HCl 4 MG Q6P PRN 12/02 1800 AC 12/22 IV 1233 Pantoprazole Sodium 40 MG DAILY 12/02 2200 AC 12/25 IV 1030 Petrolatum 1 CECY DAILY NEEDED PRN 12/11 2215 AC 12/23 OPH 1532 Sodium Chloride 1,000 ML Q13H 12/25 1400 AC IV Total Parenteral 1 UNIT 12/25 1900 AC Nutrition IV 12/26 1359 Total Parenteral 1 UNIT 12/24 1900 DC 12/24 Nutrition IV 12/24 1902009 Total Parenteral 1 UNIT 12/23 1900 DC 12/23 Nutrition IV 12/24 1851956 Vancomycin HCl 1,000 MG 1700 12/23 1700 AC 12/24 Dextrose/Water 250 ML IV 1629 Impression/Plan Impression/Problem List Impression: 89/M with PMH of asthma, HTN, bilateral inguinal hernia s/p repair 30 years ago presented to [facility] on 12/12/15 c/o acute abdominal pain. He was found to have acute perforation of sigmoid colon complicated by peritonitis. He underwent emergent surgery with Henny's procedure. He was subsequently sent to ICU for hemodynamic stabilization, further care as patient is at high risk for infection/respiratory failure post extubation. Today he is still on ventilated through tracheostomy, slightly arousable, and spiking fevers. He has fast rate and slightly low blood pressure Plan Respiratory: #Respiratory failure. Patient has history of COPD. * We DC'd fentanyl drip . * Patient is on mechanically ventilated through tracheostomy. His ventilation sittings are tidal volume to 500 and respiratory rate of 16. Infectious Diseases: #Recurrent Fever explaratory laparotomy. Post op day #22 Underwent repeat drainage during ICU stay. OR cultures was sent and was positive for Gram postive cocci and gram negative rods. * He is still febrile with Tmax of 101.3 yesterday. WBCs today is 22.9 * we'll cont' IV meropenem Q8 1gm * Continue Fluconazol 600 daily. * We will cont' vancomycin 1 g daily * panculture, will follow the results. * C. difficile, we will follow the results * Paracentesis fluid culture is pending * We will continue liq acetaminophen and cooling blankets when necessary. Cardiovascular: #New onset A. fib postoperativey (resolved). Patient developed A. fib post operative, most likely patient was on stress because of sepsis. He was started on amiodarone drip, patient then converted back to normal sinus rhythm after which a major on trip was discontinued. Currently he is maintaining normal sinus rhythm #New onset bilateral lower extremity edema. Bilateral lower extremity Doppler was done to exclude DVTs as a possible explanation. Results came back negative for DVTs. * we'll keep negative balance #Right Cephalic vein thrombosis Patient was found to have superficial thrombosis in right cephalic vein. He had a peripheral line in that region at the time of surgery. This thrombosis is a superficial and most likely will not lead to any DVTs. * Warm compressors without any anticoagulation for now. Hematology: Patient H&H is dropping even after blood transfusion. patient LDH is highly elevated, total bilirubin is elevated, hematology believe it's not hemostatic anemia.. * We'll repeat CBC after he finished blood transfusion and tomorrow morning * We will follow any further hematology oncology recommendation Metabolic: #JUANA (Resolved) Today creatinine increased to 1.2 from 1.1 yesterday. At some point during this admission patient's creatinine went up to 1.6. #Fluid balance * since admission total intake is still higher than total output. * We will monitor his fluid balance. * We'll hold IV Lasix today Alimentary: #Hyperbilirubinemia Hematology believe it's not because of hemodialysis. X-ray was done and showed or lytic ileus however surgery believe that no surgical intervention will be needed now. Is the pattern looks like obstructive gallbladder pathology. However HIDA scan was done yesterday and suggest that it's not obstructive. We consulted GI (Dr. Torres), talked to him over the phone, he will come and see the patient. * NPO with NG decompression * TPN - day 12. * we'll cont' GI prophylaxis. * Colostomy bag in place with active drainage * Bowel sounds decreased. * Surgery is on board we will follow their recommendation. * GI consulted we will follow their recommendation Neurological: Patient is sedated and ventilated through tracheostomy Patient is arousable to verbal and tactile stimulus. Endocrinology No endocrinology issue at the time SKI No current skin issues Diet patient is nothing by mouth * We'll continue TPN DVT/Prophylaxis: sc lovenox Code Status: Full Code Problem List: 1. Peritonitis Pain Ratin Tomorrow's Labs & Rationales: cbc, icu bundle, xray Plan DVT/Prophylaxis: sc lovenox Code Status: Full Code
--- NOTE | 2016-12-25 10:17 | PN- CRCU ---
Subjective HPI/Critical Care Issues: The patient remains on mechanical ventilation. He continues to intermittently spike fevers noting that his MAXIMUM TEMPERATURE over the past 24 hours was 101.3. His oxygen requirement has remained stable at 40%. He remained hemodynamically stable. He appears to be more arousable today. He remains on TPN and lipids. He failed weaning this morning. Cultures from yesterday's fluid aspirate show no growth after 1 day. The fentanyl drip remains off. Objective Current Medications: Current Medications Sig/Ar Start time Last Medication Dose Route Stop Time Status Admin Acetaminophen 640 MG Q4P PRN 12/23 1415 AC 12/25 PO 0637 Albuterol Sulfate 3 ML EVERY 4 HRS/AWAKE 12/06 1600 AC 12/25 INH 0800 Fentanyl Citrate 1,000 MCG Q10H 12/21 0900 DC 12/24 Sodium Chloride 250 ML IV 0004 Fluconazole 400 MG DAILY 12/18 1000 AC 12/24 Sodium Chloride 200 ML IV 1130 Fluconazole 200 MG DAILY 12/18 1000 AC 12/24 Sodium Chloride 100 ML IV 1011 Furosemide 40 MG DAILY 12/20 1000 DC 12/24 IV 1010 Heparin Sodium 5,000 UNIT Q8 12/24 1400 AC 12/25 (Porcine) SC 0636 Ipratropium [place] 2.5 ML EVERY 4 HRS/AWAKE 12/06 1600 AC 12/25 INH 0800 Lorazepam 2 MG ONE ONE 12/24 1300 DC 12/24 IV 12/24 1301 1153 Lorazepam 1 MG Q4P PRN 12/13 1715 AC 12/22 IV 1220 Meropenem 1 GM Q8H 12/15 1000 AC 12/25 IV 0133 Ondansetron HCl 4 MG Q6P PRN 12/02 1800 AC 12/22 IV 1233 Pantoprazole Sodium 40 MG DAILY 12/02 2200 AC 12/24 IV 1010 Petrolatum 1 CECY DAILY NEEDED PRN 12/11 2215 AC 12/23 OPH 1532 Total Parenteral 1 UNIT 12/24 190 DC 12/24 Nutrition IV 12/24 Total Parenteral 1 UNIT 12/23 1900 DC 12/23 Nutrition IV 12/24 1859 195 Vancomycin HCl 1,000 MG 1700 12/23 1700 AC 12/24 Dextrose/Water 250 ML IV 1629 Vital Signs & I&O Last 24 Hrs of Vitals and I&O: Vital Signs Date Time Temp Pulse Resp B/P Pulse O2 O2 Flow FiO2 Ox Delivery Rate 12/25 0822 30 12/25 0803 99.9 12/25 0800 97 Ventilator 30% 12/25 0800 99.9 96 16 94/58 97 Ventilator 30% 12/25 0637 100.6 12/25 0555 30 12/25 0550 35 12/25 0414 35 12/25 0400 100 Ventilator 35% 12/25 0326 40 12/25 0027 40 12/25 0000 98.3 84 20 104/60 96 Ventilator 40% 12/25 0000 96 Ventilator 40% 12/24 2234 99.4 12/24 2218 40 12/24 2123 101.3 12/24 2013 40 12/24 2000 95 Ventilator 40% 12/24 1624 40 12/24 1605 Ventilator 40% 12/24 1600 100.5 101 22 114/66 95 Ventilator 40% 12/24 1600 95 Ventilator 40% 12/24 1415 40 12/24 1200 99 Ventilator 40% 12/24 1040 40 Intake & Output 12/25 1600 12/25 0800 12/25 0000 Intake Total 689 589 Output Total 1000 725 Balance -311 -136 Intake, IV 689 282 Intake, Oral 0 0 Intake, Other 65 Intake, 242 TPN/PPN Number 0 Bowel Movements Output, 550 325 Gastric Drainage Output, Urine 450 400 Patient 207 lb Weight Exam General Appearance: sedated, intubated, jaundiced Head: atraumatic, normal appearance Neck: supple Respiratory: scattered bilateral rhonchi, the lungs expand symmetrically and the trachea is midline Cardiovascular: regular rate/rhythm Abdomen: distended, bowel sounds absent, no erythema or drainage, colostomy contains stool Extremities: 1+ pitting edema Skin: intact, warm/dry Results Last 24 Hrs of Lab Results: Laboratory Tests 12/25/16 0445: Anion Gap 12, Estimated GFR 38 L, Glucose 174 H, Calcium 8.0 L, Phosphorus 5.1 H, Magnesium 2.2, Total Bilirubin 11.4 H, Direct Bilirubin 10.3 H, AST 49 , ALT 33, Albumin 2.0 L, CBC w Diff MAN DIFF ORDERED, RBC 2.77 L, MCV 85.7, MCH 29.6, RDW 16.5 H, MPV 9.5, Gran % 90.7 H, Lymphocytes % 4.6 L, Monocytes % 4.0, Eosinophils % 0.4, Basophils % 0.3, Absolute Granulocytes 20.7 H, Absolute Lymphocytes 1.1 L, Absolute Monocytes 0.9 H, Absolute Eosinophils 0.1 , Absolute Basophils 0.1, Platelet Estimate ADEQUATE, Polychromasia 1+, Hypochromic-Microcytic 2+, Anisocytosis 1+, PUBS MCHC 34.5 Impression/Plan Impression/Plan Impression/Plan: 1. S/P exploratory laparotomy and Hartmans procedure, s/p repeat abdominal washout, with persistent fevers. He remains on meropenem, Diflucan and Vanco. Cultures from yesterday's fluid aspirate show no growth after 1 day. 2. Respiratory failure, peak airway pressures elevated in the setting of increased abdominal pressure, secondary to abdominal distension. 3. 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 4. Malnutrition. 5. Superficial cephalic vein thrombosis, no DVT. 6. Anemia without bleeding. 7. Worsening bilirubinemia, which may be related to critical illness. No evidence of biliary disease has been found on repeat imaging. 8. Abdominal ileus. 9. Worsening acute kidney injury in the setting of diuresis and IV contrast. Recommendations: * Give 1 L of normal saline over the course of the day today. * Hold IV Lasix today. * Follow up GI recommendations - please request a formal evaluation regarding hyperbilirubinemia and ileus. * Continue with weaning trials as tolerated. * Continue meropenem, vanco and Diflucan as per ID. * Continue current ventilator settings. * TRC/nebs. * Continue DVT and GI prophylaxis. Subcutaneous heparin to continue. * Continue all supportive care. Code Status: Full Code
[2016-12-25 16:00] VITALS: BP 112/60
--- NOTE | 2016-12-25 16:15 | Cons- Gastroenterology ---
General Information and HPI Consulting Request Date of Consult: 12/25/16 Requested By: ARISTIDES ALEJANDRO,DARWIN Nickerson Reason for Consult: Hyperbilirubinemia Source of Information: old records Exam Limitations: unable to give history History of Present Illness: Patient is a critically ill 89-year-old man who presented to [facility] approximately 20 days ago with an acute abdom and has remained intubated. En due to a sigmoid perforation and extensive peritoneal peritoneal contamination with stool. Since then the patient has had a complicated ICU course and has remained intubated. Patient has a number of medical issues including active sputum cultures Tendinitis due to sigmoid perforation, increasing leukocytosis, lactic acidosis. No known underlying liver disease. Allergies/Medications Allergies: Coded Allergies: NO KNOWN ALLERGIES (12/24/15) Home Med List: Albuterol Sulfate (Ventolin Hfa) 90 MCG HFA.AER.AD 2 PUF INH Q4-6 PRN PRN BREATHING PROBLEMS (Reported) Albuterol Sulfate/Ipratropiu (Duoneb) 3 MG/3 ML NEB 1 Vial INH/ELOY 4 TIMES/DAY PRN WHEEZING Atorvastatin Calcium 10 MG TABLET 1 TAB PO DAILY CHOLESTEROL (Reported) Furosemide (Lasix) 20 MG TABLET 1 TAB PO DAILY FLUID IN LUNGS Methylprednisolone. (Medrol) 4 MG TAB.DS.PK 1 DP PO AD BRONCHOSPASM 6 on day 1 then reduce by one tablet daily until gone Potassium Chloride 10 MEQ TAB.ER.PRT 1 TAB PO DAILY SUPPLEMENT Current Medications: Current Medications Sig/Ar Start time Last Medication Dose Route Stop Time Status Admin Acetaminophen 640 MG Q4P PRN 12/23 1415 AC 12/25 PO 1223 Albuterol Sulfate 3 ML EVERY 4 HRS/AWAKE 12/06 1600 AC 12/25 INH 1112 Fat Emulsion 250 ML ONCE ONE 12/25 1900 AC Intravenous IV 12/26 1459 Fentanyl Citrate 1,000 MCG Q10H 12/21 0900 DC 12/24 Sodium Chloride 250 ML IV 0004 Fluconazole 400 MG DAILY 12/18 1000 AC 12/25 Sodium Chloride 200 ML IV 1030 Fluconazole 200 MG DAILY 12/18 1000 AC 12/25 Sodium Chloride 100 ML IV 1222 Heparin Sodium 5,000 UNIT Q8 12/24 1400 AC 12/25 (Porcine) SC 1430 Ipratropium [place] 2.5 ML EVERY 4 HRS/AWAKE 12/06 1600 AC 12/25 INH 1113 Lorazepam 1 MG Q4P PRN 12/13 1715 AC 12/22 IV 1220 Meropenem 1 GM Q8H 12/15 1000 AC 12/25 IV 1030 Ondansetron HCl 4 MG Q6P PRN 12/02 1800 AC 12/22 IV 1233 Pantoprazole Sodium 40 MG DAILY 12/02 2200 AC 12/25 IV 1030 Petrolatum 1 CECY DAILY NEEDED PRN 12/11 2215 AC 12/23 OPH 1532 Sodium Chloride 1,000 ML Q13H 12/25 1400 AC 12/25 IV 1430 Total Parenteral 1 UNIT 19012/25 1900 AC Nutrition IV 12/26 1359 Total Parenteral 1 UNIT 19012/24 1900 DC 12/24 Nutrition IV 12/24 1902009 Total Parenteral 1 UNIT 12/23 1900 DC 12/23 Nutrition IV 12/24 185 195 Vancomycin HCl 1,000 MG 1700 12/23 1700 AC 12/24 Dextrose/Water 250 ML IV 1629 Past History Travel History Traveled to [place] past 21 day No Medical History Neurological: NONE EENT: NONE Cardiovascular: hypertension, hyperlipidemia Respiratory: asthma Gastrointestinal: HERNIA Hepatic: NONE Renal: NONE Musculoskeletal: NONE Psychiatric: NONE Endocrine: NONE Blood Disorders: NONE Cancer(s): NONE EMT/Reproductive: NONE Surgical History Surgical History: hernia repair-inguinal (bilateral with left recurrence), HERNIA REPAIR Psychosocial History Where Do You Live? Home Services at Home: None Smoking Status: Former Smoker Functional Ability ADLs Independent: dressing, eating, toileting, bathing. Ambulation: independent IADLs Independent: shopping, housework, finances, food prep, telephone, transportation , medication admin. Exam & Diagnostic Data Vital Signs and I&O Vital Signs Date Time Temp Pulse Resp B/P Pulse O2 O2 Flow FiO2 Ox Delivery Rate 12/25 1422 30 12/25 1349 99.6 12/25 1223 101.0 12/25 1119 30 12/25 0822 30 12/25 0803 99.9 12/25 0800 97 Ventilator 30% 12/25 0800 99.9 96 16 94/58 97 Ventilator 30% 12/25 0637 100.6 12/25 0555 30 12/25 0550 35 12/25 0414 35 12/25 0400 100 Ventilator 35% 12/25 0326 40 12/25 0027 40 12/25 0000 98.3 84 20 104/60 96 Ventilator 40% 12/25 0000 96 Ventilator 40% 12/24 2234 99.4 12/24 2218 40 12/24 2123 101.3 12/24 2012 40 12/24 1999 95 Ventilator 40% 12/24 1624 40 Intake & Output 12/25 1600 12/25 0400 12/24 1600 12/24 0400 12/23 0400 Intake Total 560 547 9058 838.2 1839.7 1105.2 Output Total 1210 626 2209 800 2080 675 Balance -311 -136 -1324 38.2 -240.3 430.2 Intake, Blood 393 Product Intake, IV 192 750 9499 326.8 571.6 78 Intake, Lipid 0 72.3 Intake, Oral 0 0 0 0 0 0 Intake, Other 65 50 110 Intake, 242 511.4 1158.1 561.9 TPN/PPN Number 0 Bowel Movements Output, 550 325 967 713 0572 50 Gastric Drainage Output, Stool 20 0 30 25 Output, Urine 725 950 4433 450 1050 600 Patient 207 lb 210 lb 208 lb Weight Patient intubated heart sounds S1 and S2 tachycardia and respiratory exams good air entry with additional ventilator sounds. Abdomen soft no visible rebound, motility sounds reduced. No palmar erythema or spider angiomata. Assessment/Plan Assessment/Recommendations: This 89-year-old gentleman was admitted approximately 23 days ago with a sigmoid perforation and severe peritonitis. Patient has had a more recent conjugated hyperbilirubinemia. In this current setting of a critically ill patient with her multiple possibilities for this. It is notable that the patient does not have evidence of cholestasis or hepatocellular damage. Differential diagnosis includes sepsis, particularly as the patient has had an elevated white cell count in the last few days. This is still the most likely etiology. Other possibilities are TPN although this tends to be more cholestatic. There is no agreed upon ideal TPN formula for minimizing TPN induced cholestasis, however however there is some suggestion that reducing the sugar content is helpful. Drug-induced liver injury is also a possibility. Specifically fluconazole and meropenem. The profile of simple hyperbilirubinemia is however atypical for both of these, one would expect some degree of evidence of cholestasis with an elevation in alkaline phosphatase. In summary the hyperbilirubinemia in this patient is likely secondary to a persistent intra-abdominal sepsis. There is no specific therapy for it and it's course will be determined by ability to contain the peritonitis. Consult Acknowledgment - Thank you for your consult request.
[2016-12-26] VITALS: BP 98/60
[2016-12-26 05:36] LABS: ABSOLUTE BASOPHIL COUNT 0 /CUMM (0.0-0.2); ABSOLUTE EOSINOPHIL COUNT 0.1 /CUMM (0.0-0.7); ABSOLUTE GRANULOCYTE CT 18.3 /CUMM (1.4-6.5); ABSOLUTE LYMPH COUNT 0.9 /CUMM (1.2-3.4); ABSOLUTE MONOCYTE COUNT 0.7 /CUMM (0.10-0.60); BASOPHIL % 0 % (0.0-2.0); EOSINOPHIL % 0.7 % (0-5); GRANULOCYTE % 91.6 % (42.2-75.2); MEAN CORPUSCULAR HGB 28.7 PG (27.0-31.0); MEAN CORPUSCULAR HGB CONC 33.5 G/DL (33.0-37.0); MEAN CORPUSCULAR VOLUME 85.6 FL (80.0-94.0); MEAN PLATELET VOLUME 9.8 FL (7.4-10.4); PLATELET COUNT 392 /CUMM (130-400); RBC DISTRIBUTION WIDTH 17.5 % (11.5-14.5)
--- NOTE | 2016-12-26 05:37 | PN- General Surgery ---
Subjective Subjective: Remains on ventilated trach, tpn infusing. Failed weaning trial yesterday. Unable to offer complaints. Called by ICU team earlier due to abdominal distension with minimal ostomy output in setting of previously functioning ostomy. Febrile overnight to 101.5F. Objective Vital Signs and I&Os Vital Signs Date Time Temp Pulse Resp B/P Pulse O2 O2 Flow FiO2 Ox Delivery Rate 12/26 0230 30 12/26 0208 100.0 12/26 0009 30 12/26 0000 92 Ventilator 30% 12/26 0000 100.0 95 22 98/60 94 Ventilator 30% 12/25 2227 101.5 12/25 2218 30 12/25 2000 94 Ventilator 30% 12/25 1905 30 12/25 1605 30 12/25 1600 94 Ventilator 30% 12/25 1600 98.6 92 22 112/60 93 Ventilator 30% 12/25 1422 30 12/25 1349 99.6 12/25 1223 101.0 12/25 1200 Ventilator 30% 12/25 1119 30 12/25 0822 30 12/25 0803 99.9 12/25 0800 97 Ventilator 30% 12/25 0800 99.9 96 16 94/58 97 Ventilator 30% 12/25 0637 100.6 12/25 0555 30 12/25 0550 35 Intake & Output 12/26 0800 12/26 0000 12/25 1600 12/25 0800 12/25 0000 12/24 1600 Intake Total 909.6 1153.0 866 571 4132 Output Total 489 765 6455 725 1630 Balance 209.6 353.0 -311 -136 -504 Intake, IV 578 368 536 987 8219 Intake, Lipid 20.6 0 Intake, Oral 0 0 Intake, Other 110 60 65 Intake, 201 725 242 TPN/PPN Number 0 Bowel Movements Output, 300 350 550 325 375 Gastric Drainage Output, Stool 0 50 Output, Urine 400 400 631 052 6450 Patient 207 lb 210 lb Weight Physical Exam: Gen: ventilated via trach, OGT in place. Cor: S1+S2+ SR/ST overnight Lungs: Diminished breath sounds to phil lung gay. Abd: firm, distended, minimal bowel sounds, ostomy pink, viable with small amount of clear, serous drainage. Ext: no edema or calf tenderness to phil lower extremities. Palpable DP pulses phil. Micro: body fluid culture: 12/24/16 many organisms seen Results Last 48 Hours of Labs: Laboratory Tests 12/26 12/25 0445 0445 Chemistry Sodium (137 - 145 mmol/L) Pending 142 Potassium (3.5 - 5.1 mmol/L) Pending 4.3 Chloride (98 - 107 mmol/L) Pending 100 Carbon Dioxide (22 - 30 mmol/L) Pending 30 Anion Gap (5 - 16) Pending 12 BUN (9 - 20 mg/dL) Pending 63 H Creatinine (0.7 - 1.2 mg/dL) Pending 1.7 H Estimated GFR (>60 ml/min) 38 L Glucose (65 - 99 mg/dL) Pending 174 H Calcium (8.4 - 10.2 mg/dL) Pending 8.0 L Phosphorus (2.5 - 4.5 mg/dL) Pending 5.1 H Magnesium (1.6 - 2.3 mg/dL) Pending 2.2 Total Bilirubin (0.2 - 1.3 mg/dL) Pending 11.4 H Direct Bilirubin (< 0.4 mg/dL) 10.3 H AST (17 - 59 U/L) Pending 49 ALT (21 - 72 U/L) Pending 33 Albumin (3.5 - 5.0 g/dL) Pending 2.0 L Prealbumin (17.6 - 36.0 mg/dL) < 3.0 L Triglycerides (<150 mg/dL) 166 H Hematology CBC w Diff Pending MAN DIFF ORDERED WBC (4.8 - 10.8 /CUMM) Pending 22.9 H RBC (4.70 - 6.10 /CUMM) Pending 2.77 L Hgb (14.0 - 18.0 G/DL) Pending 8.2 L Hct (42 - 52 %) Pending 23.8 L MCV (80.0 - 94.0 FL) Pending 85.7 MCH (27.0 - 31.0 PG) Pending 29.6 RDW (11.5 - 14.5 %) Pending 16.5 H Plt Count (130 - 400 /CUMM) Pending 442 H MPV (7.4 - 10.4 FL) Pending 9.5 Gran % (42.2 - 75.2 %) 90.7 H Lymphocytes % (20.5 - 51.1 %) 4.6 L Monocytes % (1.7 - 9.3 %) 4.0 Eosinophils % (0 - 5 %) 0.4 Basophils % (0.0 - 2.0 %) 0.3 Absolute Granulocytes (1.4 - 6.5 /CUMM) 20.7 H Absolute Lymphocytes (1.2 - 3.4 /CUMM) 1.1 L Absolute Monocytes (0.10 - 0.60 /CUMM) 0.9 H Absolute Eosinophils (0.0 - 0.7 /CUMM) 0.1 Absolute Basophils (0.0 - 0.2 /CUMM) 0.1 Platelet Estimate (ADEQUATE) ADEQUATE Polychromasia 1+ Hypochromic-Microcytic 2+ Anisocytosis 1+ PUBS MCHC (33.0 - 37.0 G/DL) Pending 34.5 Recent Imaging Studies: Abd xray: pending CXR: pending Assessment/Plan Assessment/Plan A: S/P exploratory laparotomy and Hartmans procedure, s/p repeat abdominal washout, with persistent fevers. He remains ventilated on Meropenem, Diflucan and Vanco. Cultures from 12/24/16 aspiration revealing multiple organisms and has not speciated yet. Plan: F/U cultures from IR CT guided aspiration. Continue broad spectrum IV antibiotics for now. F/U labwork, including bilirubin. GI consult reviewed. Hyperbilirubinemia in setting of sepsis vs tpn induced cholestasis. ? utility in weaning dextrose vs tpn holiday. Continue weaning trials per ICU team. Appreciate assistance. Daily abdominal dressing changes-changed this morning. F/U abdominal xray (? ileus, unlikely obstructed as ostomy was previously functioning) and CXR. Will likely need dulcolax suppository via ostomy but will discuss with surgeon first. Core Measures/Miscellaneous Edward Catheter Date In: 12/02/16 Venous Thromboembolism VTE Risk Factors: Acute medical illness, Age > 40, Surgery VTE Contraindications: No Contraindications VTE Prophylaxis Ordered Inpt Mech & Pharm VTE Diagnosis: No Beta Abelardo Is Beta Abelardo a Home Med? No Antibiotics Is Patient on Antibiotics? Yes If Yes: infection
[2016-12-26 05:44] LABS: HEMATOCRIT 31.6 % (42-52)
--- NOTE | 2016-12-26 07:32 | RADIOLOGY REPORT ---
EXAMINATION: XR PORTABLE CHEST CLINICAL INFORMATION: Ventilated patient COMPARISON: Chest x-ray from 12/25/2016 TECHNIQUE: Portable AP view of the chest was obtained. FINDINGS: Tracheostomy tube is present with the tip positioned approximately 5 cm above the fernando, unchanged. The enteric tube tip is not well delineated, but appears to be extending below the diaphragm into the region of the stomach mild cardiomegaly is unchanged. There is mild diffuse interstitial edema which is unchanged in appearance from prior study. No new focal findings. There is no pneumothorax or pleural effusion. IMPRESSION: Tracheostomy tube and enteric tube in place. No change in cardiomegaly and interstitial edema. No change in overall expansion of the lungs.
--- NOTE | 2016-12-26 07:41 | RADIOLOGY REPORT ---
EXAMINATION: XR PORTABLE ABDOMEN CLINICAL INFORMATION: Only serosanguineous output in colostomy bag. Rule out obstruction. COMPARISON: Abdomen film from 12/23/2016 TECHNIQUE: AP portable abdomen FINDINGS: There are technical limitations in this film. The right side of the abdomen is not fully included. There is gas-filled small bowel in the midabdomen with decreased distention compared to prior study. There are no definitive findings of mechanical obstruction at this time IMPRESSION: Limited abdomen film shows no evidence for mechanical obstruction at this time.
[2016-12-26 08:00] VITALS: BP 110/60
--- NOTE | 2016-12-26 08:33 | NUR ---
11-7 SHIFT NOTE PATIENT RECEIVED- OPENS EYES AND TRACKS WITH GAZE WITH STIMULI, SEEN TO MOVE BOTH ARMS EQUALLY WELL BUT DOES NOT FOLLOW COMMANDS, SKIN JAUNDICED, WARM AND DRY, FIRE DISPATCHER SINUS WITHOUT ECTOPY, HEART RATE 90'S/MIN, TRACH TO VENTILATOR AT 30% FIO2- CONTINOUS O2 SAT MONITOR 93 TO 94%, TS DONE PRN WITH THIS WHITE SECRETIONS OBTAINED, BREATHE SOUNDS CLEAR BUT DIMINISHED AT BOTH BASES, ABDOMEN DISTENDED AND FIRM, NO AUDIBLE BOWEL SOUNDS- OGT FLUSHES EASILY WITH PROMPT GREEN RETURNS- NNAMDI SO AND TERESA MADE AWARE OF ABDOMINAL DISTENTION AND IN TO EXAMINE PATIENT, BILLY PICC INTACT- TPN AND LIPIDS INFUSING ORDERED, ANN TO GRAVITY WITH JUJU COLORED UO NOTED 0530 PATIENT SEEN AND EXAMINED BY CHRISS KOCH 0600 NO CHANGES IN STATUS NOTED OVERNIGHT, AM CXR AND ABDOMINAL FILM DONE, PO TYLENOL DOSE FOR INCREASING TEMPERATURE- 100.6 AT THIS HOUR, AWAITING AM MD ROUNDS
--- NOTE | 2016-12-26 08:37 | PN- Infect Dx ---
Subjective Subjective: MAXIMUM TEMPERATURE 101.7. He has been more responsive without any specific complaints. Seropurulent drainage has been reported from the lower aspect of his incision. Objective Last 24 Hrs of Vital Signs/I&O Vital Signs Date Time Temp Pulse Resp B/P Pulse O2 O2 Flow FiO2 Ox Delivery Rate 12/26 0710 101.7 12/26 0623 100.6 12/26 0536 30 12/26 0400 95 Ventilator 30% 12/26 0230 30 12/26 0208 100.0 12/26 0009 30 12/26 0000 92 Ventilator 30% 12/26 0000 100.0 95 22 98/60 94 Ventilator 30% 12/25 2227 101.5 12/25 2218 30 12/25 2000 94 Ventilator 30% 12/25 1905 30 12/25 1605 30 12/25 1600 94 Ventilator 30% 12/25 1600 98.6 92 22 112/60 93 Ventilator 30% 12/25 1422 30 12/25 1349 99.6 12/25 1223 101.0 12/25 1200 Ventilator 30% 12/25 1119 30 Intake & Output 12/26 1600 12/26 0800 12/26 0000 Intake Total 909.6 Output Total 700 Balance 209.6 Intake, IV 578 Intake, Lipid 20.6 Intake, Other 110 Intake, 201 TPN/PPN Output, 300 Gastric Drainage Output, Stool 0 Output, Urine 400 Physical Exam Other Physical Findings: He is awake and responsive on the ventilator in no acute distress Lungs bilateral rhonchi Heart regular rhythm with no murmur Abdomen is tense, distended, with no obvious tenderness; incision with feculent appearing drainage expressed, with serous drainage in the colostomy Extremities no cyanosis, clubbing or edema; PICC in the left upper extremity with no inflammation at the site Edward catheter remains in place Results Last 24 Hours of Lab Results: Laboratory Tests 12/26 0445 Chemistry Sodium (137 - 145 mmol/L) 140 Potassium (3.5 - 5.1 mmol/L) 4.4 Chloride (98 - 107 mmol/L) 99 Carbon Dioxide (22 - 30 mmol/L) 30 Anion Gap (5 - 16) 12 BUN (9 - 20 mg/dL) 83 H Creatinine (0.7 - 1.2 mg/dL) 2.3 H Estimated GFR (>60 ml/min) 27 L Glucose (65 - 99 mg/dL) 185 H Calcium (8.4 - 10.2 mg/dL) 8.1 L Phosphorus (2.5 - 4.5 mg/dL) 4.6 H Magnesium (1.6 - 2.3 mg/dL) 2.4 H Total Bilirubin (0.2 - 1.3 mg/dL) 12.5 H Direct Bilirubin (< 0.4 mg/dL) 11.7 H AST (17 - 59 U/L) 54 ALT (21 - 72 U/L) 39 Albumin (3.5 - 5.0 g/dL) 1.9 L Hematology CBC w Diff MAN DIFF ORDERED WBC (4.8 - 10.8 /CUMM) 20.0 H RBC (4.70 - 6.10 /CUMM) 3.70 L Hgb (14.0 - 18.0 G/DL) 10.6 L Hct (42 - 52 %) 31.6 L MCV (80.0 - 94.0 FL) 85.6 MCH (27.0 - 31.0 PG) 28.7 RDW (11.5 - 14.5 %) 17.5 H Plt Count (130 - 400 /CUMM) 392 MPV (7.4 - 10.4 FL) 9.8 Gran % (42.2 - 75.2 %) 91.6 H Lymphocytes % (20.5 - 51.1 %) 4.3 L Monocytes % (1.7 - 9.3 %) 3.4 Eosinophils % (0 - 5 %) 0.7 Basophils % (0.0 - 2.0 %) 0 L Absolute Granulocytes (1.4 - 6.5 /CUMM) 18.3 H Segmented Neutrophils (42.2 - 75.2 %) 87 H Band Neutrophils (0.0 - 5.0 %) 1 Absolute Lymphocytes (1.2 - 3.4 /CUMM) 0.9 L Lymphocytes (20.5 - 51.1 %) 8 L Monocytes (1.7 - 9.3 %) 3 Absolute Monocytes (0.10 - 0.60 /CUMM) 0.7 H Absolute Eosinophils (0.0 - 0.7 /CUMM) 0.1 Absolute Basophils (0.0 - 0.2 /CUMM) 0 Metamyelocytes (0.0 - 1.0 %) 1 Platelet Estimate (ADEQUATE) ADEQUATE Polychromasia 1+ Ovalocytes FEW PUBS MCHC (33.0 - 37.0 G/DL) 33.5 Other Body Source Fld Total RBCs Counted (%) 100 Last 24 Hours of Adrian Results: Aspiration of the fluid collection December 24 negative, with gram stain revealing many white blood cells and no organisms Left pleural fluid culture December 22 negative Blood cultures 2 December 21 remain negative Recent Imaging Studies: Chest x-ray December 26, personally reviewed, reveals mild diffuse interstitial edema HIDA scan December 24 reveals poor concentration of activity in the liver with no biliary activity visualized, 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 The aspiration of the fluid collection seen on CT scan yielded turbid fluid, but the culture remains negative. I am concerned, however, about the feculent appearing drainage from his incision, suggesting the possibility of a fistula, and suspect this is the most likely source of his persistent fevers and leukocytosis. He now has evidence of renal failure possibly multifactorial, but must consider medications, including the Vancomycin. His bilirubin continues to increase, possibly secondary to sepsis versus TPN versus medications, with the HIDA scan and other imaging studies not felt to be suggestive of acute cholecystitis. Suggestion: 1. Await surgical follow-up regarding the drainage from his incision 2. Consider Renal input 3. Discontinue Vancomycin 4. Decrease Meropenem to 1 g IV every 12 hours 5. Decrease Fluconazole to 600 mg IV every 48 hours
--- NOTE | 2016-12-26 08:42 | PN- Resident CRCU ---
Subjective HPI/CRCU Issues: Patient was seen and examined at the bedside. He is not as awake or as yesterday. He continues to be febrile, and his jaundice is worsening. His abdomen had some worsening purulent discharge Objective Vital Signs & I&O Last 8 Hrs of Vitals and I&O: Vital Signs Date Time Temp Pulse Resp B/P Pulse O2 O2 Flow FiO2 Ox Delivery Rate 12/27 0039 101.0 12/27 0029 30 12/27 0000 94 Ventilator 30% 12/27 0000 101.0 96 16 124/66 94 Ventilator 30% 12/26 2235 30 12/26 2200 98 Ventilator 30% 12/26 1930 30 12/26 1600 94 Ventilator 30% 12/26 1600 98.7 90 19 92/50 94 Ventilator 30% 12/26 1530 30 12/26 1455 30 12/26 1400 98.3 12/26 1301 101.3 12/26 1200 100.5 94 16 100/74 97 Ventilator 30% 12/26 1144 30 12/26 0820 30 12/26 0800 94 Ventilator 30% 12/26 0800 99.7 100 22 110/60 94 Ventilator 30% 12/26 0710 101.7 12/26 0623 100.6 12/26 0536 30 12/26 0400 95 Ventilator 30% 12/26 0230 30 12/26 0208 100.0 Exam General Appearance: comfortable, mild distress, JAUNDICED - PROGRESSIVELY WORSE THAN YESTERDAY Head: atraumatic Ears, Nose, Throat: S/P TRACHEOSTOMY, VENTED. Respiratory: TRANSMITTED BREATH SOUNDS. RHONCHI/RALES APPRECIATED BL - SLIGHTLY BETTER THAN YESTERDAY. Cardiovascular: QUIET HEART SOUNDS WITH NO MURMUR OR GALLOP APPRECIATED. Gastrointestinal: DISTENDED ABDOMEN, WORSE THAN YESTERDAY INCISION SITE NOW DRAINING SEROUS/PURULENT FLUID - MORE PURULENT THAN YESTERDAY, NO BOWEL SOUNDS APPRECIATED Extremities: BODUS BOOTS ON, NO TENDERNESS NOTED. Weaning Parameters NIF: 42 Minute Volume: 13 Resp rate: 24 Vt: 520 Heart Rate: 107 Weaning Schedule Start Time: 0835 Minute Volume: 13 Resp Rate: 26 Vt: 559 Heart Rate: 98 End Time: 0839 Minute Volume: 17 Resp Rate: 56 Vt: 200 Heart Rate: 120 Start Time: 1142 Minute Volume: 12 Resp Rate: 22 Vt: 490 Heart Rate: 100 End Time: 1150 Resp Rate: 55 Vt: 169 Heart Rate: 102 Current Medications: Current Medications Sig/Ar Start time Last Medication Dose Route Stop Time Status Admin Acetaminophen 640 MG Q4P PRN 12/23 1415 AC 12/27 PO 0039 Albuterol Sulfate 3 ML EVERY 4 HRS/AWAKE 12/06 1600 AC 12/26 INH 2016 Fat Emulsion 250 ML Q20H ONE 12/26 1900 AC 12/26 Intravenous IV 12/27 1459 2100 Fat Emulsion 250 ML ONCE ONE 12/25 1900 DC 12/25 Intravenous IV 12/26 1459 2045 Fluconazole 400 MG Q48 12/28 1000 AC Sodium Chloride 200 ML IV Fluconazole 200 MG Q48H 12/28 1000 AC Sodium Chloride 100 ML IV Fluconazole 400 MG DAILY 12/18 1000 DC 12/26 Sodium Chloride 200 ML IV 1028 Fluconazole 200 MG DAILY 12/18 1000 DC 12/26 Sodium Chloride 100 ML IV 1301 Heparin Sodium 5,000 UNIT Q8 12/24 1400 AC 12/26 (Porcine) SC 2218 Ipratropium [place] 2.5 ML EVERY 4 HRS/AWAKE 12/06 1600 AC 12/26 INH 2016 Lorazepam 1 MG Q4P PRN 12/13 1715 DC 12/22 IV 1220 Meropenem 1 GM Q12H 12/27 0600 AC IV Meropenem 1 GM Q8H 12/15 1000 DC 12/26 IV 1800 Ondansetron HCl 4 MG Q6P PRN 12/02 1800 AC 12/22 IV 1233 Pantoprazole Sodium 40 MG DAILY 12/02 2200 AC 12/26 IV 1029 Petrolatum 1 CECY DAILY NEEDED PRN 12/11 2215 AC 12/23 OPH 1532 Sodium Chloride 1,000 ML Q10H 12/26 1900 AC 12/26 IV 2100 Sodium Chloride 1,000 ML Q13H 12/25 1400 DC 12/25 IV 1430 Total Parenteral 1 UNIT 1900 12/26 1900 AC 12/26 Nutrition IV 12/27 1259 2100 Total Parenteral 1 UNIT 1900 12/25 1900 DC 12/25 Nutrition IV 12/27 0858 2045 Vancomycin HCl 1,000 MG 1700 12/23 1700 DC 12/26 Dextrose/Water 250 ML IV 1700 Impression/Plan Impression/Problem List Impression: Mr. Calvo is a 89/M with PMH of asthma, HTN, bilateral inguinal hernia s/p repair 30 years ago presented to [facility] on 12/12/15 c/o acute abdominal pain. He was found to have acute perforation of sigmoid colon complicated by peritonitis. He underwent emergent surgery with Henny's procedure. He was subsequently sent to ICU for hemodynamic stabilization, further care as patient is at high risk for infection/respiratory failure post extubation. Today he is still on ventilated through tracheostomy, slightly arousable, and still spiking fevers. Assessment/Plan Infectious Diseases: * Still spiking fevers s/p ex lap and hartmans procedure. * Now draining purulent/bilous fluid - surgery informed. * We will reapt a CT scan, however with oral contrast to evaluate for another perf. PO contrast as to prevent further kidney injury * Repeat cultures/abdominal fluid aspirate -ve so far. * ID consult appreciated - he remains on IV meropenem, Fluconazol and vancomycin but is still spiking. Respiratory: * No significant change, still mechanically ventilated via trach. * AC Vt 500, with a peak flow of 70 with FiO2 of 30% with a PEEP of 5. * Coninue TRC/nebs. Hematology: * Patient H&H dropped again this am. No clinical evidence of bleeding. Bilirubin also continues to rise * We will transfuse again 1 unit of PRBCs and repeat CBC * heme/onc and GI consults appreciated. Acute on Chronic Kidney injury: * Unfortunately his renal function continues to deteriorate, and his urine is dropping. * We are holding lasix, and we will consult with nephro to aide in this management * We will avoid IV contrast and nephrotoxins as well as lasix, although he is nearly +2.4L over the last 24 hours. * We will monitor his fluid balance. Alimentary: * Hyperbilirubinemia continues to trend up * Heme consult appreciated - most likely 2/2 prolonged septicemia, no evidence of hemo;ysis. * GO consult appreciated. * We will continue his tube feeds and GI ppx * TPN - day 13. * ostomy not putting out much since last night, wth distended abdomen ( intrabdominal pressure 21) with hypoactive BS. Surgery notified an on board Neurological: * Patient less arousable to verbal and tactile stimulus. * Currently off of sedative meds Diet patient is nothing by mouth * We'll continue TPN DVT/Prophylaxis: sc lovenox Problem List: 1. Anemia 2. Peritonitis 3. Pulmonary edema Pain Ratin Tomorrow's Labs & Rationales: icu bundle/cbc/cxr Plan DVT/Prophylaxis: sc heparin Code Status: Full Code
[2016-12-26 09:32] LABS: ABSOLUTE BASOPHIL COUNT 0 /CUMM (0.0-0.2); ABSOLUTE EOSINOPHIL COUNT 0.2 /CUMM (0.0-0.7); BASOPHIL % 0 % (0.0-2.0); EOSINOPHIL % 0.7 % (0-5)
--- NOTE | 2016-12-26 09:34 | PN- CRCU ---
Subjective HPI/Critical Care Issues: The patient is awake but is not following commands or communicating today. He continues to have elevated temperatures. There is an increased amount of drainage coming from his midline incision. His respiratory status remained stable however he is not tolerating weaning trials. His urine output remains adequate. He continues to have worsening of his renal function. Objective Current Medications: Current Medications Sig/Ar Start time Last Medication Dose Route Stop Time Status Admin Acetaminophen 640 MG Q4P PRN 12/23 1415 AC 12/26 PO 0623 Albuterol Sulfate 3 ML EVERY 4 HRS/AWAKE 12/06 1600 12/26 INH 0818 Fat Emulsion 250 ML ONCE ONE 12/25 1900 12/25 Intravenous IV 12/26 1459 2045 Fluconazole 400 MG DAILY 12/18 1000 12/25 Sodium Chloride 200 ML IV 1030 Fluconazole 200 MG DAILY 12/18 1000 12/25 Sodium Chloride 100 ML IV 1222 Heparin Sodium 5,000 UNIT Q8 12/24 1400 12/26 (Porcine) SC 0615 Ipratropium [place] 2.5 ML EVERY 4 HRS/AWAKE 12/06 1600 12/26 INH 0819 Lorazepam 1 MG Q4P PRN 12/13 1715 AC 12/22 IV 1220 Meropenem 1 GM Q8H 12/15 1000 12/26 IV 0209 Ondansetron HCl 4 MG Q6P PRN 12/02 1800 12/22 IV 1233 Pantoprazole Sodium 40 MG DAILY 12/02 2200 12/25 IV 1030 Petrolatum 1 CECY DAILY NEEDED PRN 12/11 2215 12/23 OPH 1532 Sodium Chloride 1,000 ML Q13H 12/25 1400 12/25 IV 1430 Total Parenteral 1 UNIT 19012/25 1900 12/25 Nutrition IV 12/26 1359 2045 Vancomycin HCl 1,000 MG 1700 12/23 1700 12/25 Dextrose/Water 250 ML IV 1739 Vital Signs & I&O Last 24 Hrs of Vitals and I&O: Vital Signs Date Time Temp Pulse Resp B/P Pulse O2 O2 Flow FiO2 Ox Delivery Rate 12/26 0820 30 12/26 0710 101.7 12/26 0623 100.6 12/26 0536 30 12/26 0400 95 Ventilator 30% 12/26 0230 30 12/26 0208 100.0 12/26 0009 30 12/26 0000 92 Ventilator 30% 12/26 0000 100.0 95 22 98/60 94 Ventilator 30% 12/25 2227 101.5 12/25 2218 30 12/25 2000 94 Ventilator 30% 12/25 1905 30 12/25 1605 30 12/25 1600 94 Ventilator 30% 12/25 1600 98.6 92 22 112/60 93 Ventilator 30% 12/25 1422 30 12/25 1349 99.6 12/25 1223 101.0 12/25 1200 Ventilator 30% 12/25 1119 30 Intake & Output 12/26 1600 12/26 0800 12/26 0000 Intake Total 1217.0 909.6 Output Total 835 700 Balance 382.0 209.6 Intake, IV 384 578 Intake, Lipid 96.0 20.6 Intake, Other 110 Intake, 687 201 TPN/PPN Intake, Tube 50 Irrigant Output, 475 300 Gastric Drainage Output, Stool 25 0 Output, Urine 335 400 Patient 201 lb Weight Exam General Appearance: trach in place, jaundiced Head: atraumatic, normal appearance Neck: supple Respiratory: scattered bilateral rhonchi, the lungs expand symmetrically and the trachea is midline Cardiovascular: regular rate/rhythm Abdomen: distended, bowel sounds absent, no erythema or drainage, colostomy contains stool, drainage from midline incision observed Extremities: 1+ pitting edema Skin: intact, warm/dry Results Last 24 Hrs of Lab Results: Laboratory Tests 12/26/16 0855: Sodium Pending, Potassium Pending, Chloride Pending, Carbon Dioxide Pending, Anion Gap Pending, BUN Pending, Creatinine Pending, Glucose Pending, Lactic Acid Pending, Calcium Pending, Phosphorus Pending, Magnesium Pending, Total Bilirubin Pending, Direct Bilirubin Pending, AST Pending, ALT Pending, Albumin Pending, CBC w Diff Pending, WBC Pending, RBC Pending, Hgb Pending, Hct Pending, MCV Pending, MCH Pending, RDW Pending, Plt Count Pending, MPV Pending, PUBS MCHC Pending 12/26/16 0853: Ammonia Pending 12/26/16 0445: Anion Gap 12, Estimated GFR 27 L, Glucose 185 H, Calcium 8.1 L, Phosphorus 4.6 H, Magnesium 2.4 H, Total Bilirubin 12.5 H, Direct Bilirubin 11.7 H, AST 54, ALT 39, Albumin 1.9 L, CBC w Diff MAN DIFF ORDERED, RBC 3.70 L, MCV 85.6, MCH 28.7, RDW 17.5 H, MPV 9.8, Gran % 91.6 H, Lymphocytes % 4.3 L, Monocytes % 3.4, Eosinophils % 0.7, Basophils % 0 L, Absolute Granulocytes 18.3 H, Segmented Neutrophils 87 H, Band Neutrophils 1, Absolute Lymphocytes 0.9 L, Lymphocytes 8 L, Monocytes 3, Absolute Monocytes 0.7 H, Absolute Eosinophils 0.1, Absolute Basophils 0, Metamyelocytes 1, Platelet Estimate ADEQUATE, Polychromasia 1+, Ovalocytes FEW, PUBS MCHC 33.5, Fld Total RBCs Counted 100 Diagnostic Data CXR Findings: Tracheostomy tube and enteric tube in place. No change in cardiomegaly and interstitial edema. No change in overall expansion of the lungs. Impression/Plan Impression/Plan Impression/Plan: 1. S/P exploratory laparotomy and Hartmans procedure with increased drainage from the midline incision which appears to be consistent with stool. 2. Respiratory failure, peak airway pressures elevated in the setting of increased abdominal pressure, secondary to abdominal distension. 3. 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 4. Malnutrition. 5. Superficial cephalic vein thrombosis, no DVT. 6. Anemia without bleeding. 7. Worsening bilirubinemia, which may be related to drug-induced liver injury versus persistent intra-abdominal sepsis. 8. Abdominal ileus. 9. Worsening acute kidney injury in the setting of diuresis and IV contrast. Recommendations: * Increase IV fluids to 100 ML per hour.. * Continue to hold Lasix. * Please request a nephrology consult regarding acute kidney injury in the setting of IV contrast and diuresis. * Appreciate GI input, will follow up recommendations. * Await surgical input regarding midline incision drainage. * Continue meropenem and Diflucan as per ID. * Continue current ventilator settings. Hold off on weaning today. * TRC/nebs. * Continue DVT and GI prophylaxis. Subcutaneous heparin to continue. * The patient continues to deteriorate. Will discuss this with the patient's family to address goals of care. * Continue all supportive care. Code Status: Full Code
[2016-12-26 09:36] LABS: ABSOLUTE GRANULOCYTE CT 22.9 /CUMM (1.4-6.5); ABSOLUTE MONOCYTE COUNT 1.1 /CUMM (0.10-0.60); GRANULOCYTE % 91.1 % (42.2-75.2); MEAN CORPUSCULAR HGB 29.4 PG (27.0-31.0); MEAN CORPUSCULAR HGB CONC 34.2 G/DL (33.0-37.0); MEAN CORPUSCULAR VOLUME 86.1 FL (80.0-94.0); MEAN PLATELET VOLUME 9.6 FL (7.4-10.4); PLATELET COUNT 456 /CUMM (130-400); WHITE BLOOD CELL COUNT 25.1 /CUMM (4.8-10.8)
[2016-12-26 09:38] LABS: HEMATOCRIT 22.9 % (42-52); RED BLOOD CELL CT 2.66 /CUMM (4.70-6.10)
--- NOTE | 2016-12-26 11:42 | PN- General Surgery ---
Surgical Brief Attending Note Brief Attending Note: concern today regarding copious drainage of wound. ?enteric contents. Overall patient slowly declining with hyperbilirubinemia, renal failure and persistent fevers/leukocytosis unclear etiology. Aspiration of fluid from chest and abdomen fails to show bacterial growth. Wound evaluation showed serous looking fluid with necrotic debris, likely soft tissue and/or fascia. It does not look like enteric contents, but rather the serous fluid is bilirubin containing from jaundice. There could be a component of fascial dehiscence but at this point in his recovery, no intervention will be undertaken unless there is evidence of bowel compromise. Recomment CT abd/pelvis with oral contrast to eval enteric injury from IR intervention and fascia integrity.
[2016-12-26 12:00] VITALS: BP 100/74
--- NOTE | 2016-12-26 14:26 | Cons- Nephrology ---
General Information and HPI Consulting Request Date of Consult: 12/26/16 Requested By: ARISTIDES ALEJANDRO,DARWIN Nickerson History of Present Illness: 89 yo male admitted to the hospital on December 02 of this year with perforated sigmoid colon. Course has been complicated by trips back to the OR for wash out , ongoing wound drainage, episode of hypotension and sepsis. Last few days he has developed worsened wound drainage, abdominal distension with bladder pressures in the 20s. He had an abdominal CT with IV contrast on December 22. The patient had a transient rise in his creatinine shortly after admission and first operation, it returned to normal, but then began to rise again on December 22. He has been non-oliguric. He is on meropenam and vancomycin, has been on multipe beta-lactams. No NSAIDs or aminoglycosides. His creatinine today was 2.4 and renal consult was called. FH: negative for renal disease. Allergies/Medications Allergies: Coded Allergies: NO KNOWN ALLERGIES (12/24/15) Home Med List: Albuterol Sulfate (Ventolin Hfa) 90 MCG HFA.AER.AD 2 PUF INH Q4-6 PRN PRN BREATHING PROBLEMS (Reported) Albuterol Sulfate/Ipratropiu (Duoneb) 3 MG/3 ML NEB 1 Vial INH/ELOY 4 TIMES/DAY PRN WHEEZING Atorvastatin Calcium 10 MG TABLET 1 TAB PO DAILY CHOLESTEROL (Reported) Furosemide (Lasix) 20 MG TABLET 1 TAB PO DAILY FLUID IN LUNGS Methylprednisolone. (Medrol) 4 MG TAB.DS.PK 1 DP PO AD BRONCHOSPASM 6 on day 1 then reduce by one tablet daily until gone Potassium Chloride 10 MEQ TAB.ER.PRT 1 TAB PO DAILY SUPPLEMENT Current Medications: Current Medications Sig/Ar Start time Last Medication Dose Route Stop Time Status Admin Acetaminophen 640 MG Q4P PRN 12/23 1415 AC 12/26 PO 1301 Albuterol Sulfate 3 ML EVERY 4 HRS/AWAKE 12/06 1600 AC 12/26 INH 1140 Fat Emulsion 250 ML Q20H ONE 12/26 1900 AC Intravenous IV 12/27 1459 Fat Emulsion 250 ML ONCE ONE 12/25 1900 DC 12/25 Intravenous IV 12/26 1459 2045 Fluconazole 400 MG DAILY 12/18 1000 AC 12/26 Sodium Chloride 200 ML IV 1028 Fluconazole 200 MG DAILY 12/18 1000 AC 12/26 Sodium Chloride 100 ML IV 1301 Heparin Sodium 5,000 UNIT Q8 12/24 1400 AC 12/26 (Porcine) SC 0615 Ipratropium Lindstrom 2.5 ML EVERY 4 HRS/AWAKE 12/06 1600 AC 12/26 INH 1140 Lorazepam 1 MG Q4P PRN 12/13 1715 AC 12/22 IV 1220 Meropenem 1 GM Q8H 12/15 1000 AC 12/26 IV 1029 Ondansetron HCl 4 MG Q6P PRN 12/02 1800 AC 12/22 IV 1233 Pantoprazole Sodium 40 MG DAILY 12/02 2200 AC 12/26 IV 1029 Petrolatum 1 CECY DAILY NEEDED PRN 12/11 2215 AC 12/23 OPH 1532 Sodium Chloride 1,000 ML Q13H 12/25 1400 AC 12/25 IV 1430 Total Parenteral 1 UNIT 1900 12/26 1900 AC Nutrition IV 12/27 1259 Total Parenteral 1 UNIT 1900 12/25 1900 DC 12/25 Nutrition IV 12/27 0858 2045 Vancomycin HCl 1,000 MG 1700 12/23 1700 AC 12/25 Dextrose/Water 250 ML IV 1739 Review of Systems Review of Systems: Not possible as patient intubated and sedated Past History Travel History Traveled to [facility] past 21 day No Medical History Neurological: NONE EENT: NONE Cardiovascular: hypertension, hyperlipidemia Respiratory: asthma Gastrointestinal: HERNIA Hepatic: NONE Renal: NONE Musculoskeletal: NONE Psychiatric: NONE Endocrine: NONE Blood Disorders: NONE Cancer(s): NONE 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 Home Services at Home: None Smoking Status: Former Smoker Functional Ability ADLs Independent: dressing, eating, toileting, bathing. Ambulation: independent IADLs Independent: shopping, housework, finances, food prep, telephone, transportation , medication admin. Exam & Diagnostic Data Vital Signs and I&O Vital Signs Date Time Temp Pulse Resp B/P Pulse O2 O2 Flow FiO2 Ox Delivery Rate 12/26 1301 101.3 12/26 1144 30 12/26 0820 30 12/26 0710 101.7 12/26 0623 100.6 12/26 0536 12/26 0400 95 Ventilator 30% 12/26 0230 30 12/26 0208 100.0 12/26 0009 30 12/26 0000 92 Ventilator 30% 12/26 0000 100.0 95 22 98/60 94 Ventilator 30% 12/25 2227 101.5 12/25 2218 30 12/25 1999 94 Ventilator 30% 12/25 1905 30 12/25 1605 30 12/25 1600 94 Ventilator 30% 12/25 1600 98.6 92 22 112/60 93 Ventilator 30% 12/25 1422 30 Intake & Output 12/26 0400 12/25 0400 12/24 040 Intake Total 1217.0 909.6 1842.0 589 1176 838.2 Output Total 130 197 9226 725 2500 800 Balance 382.0 209.6 42.0 -136 -1324 38.2 Intake, IV 549 920 2282 282 1126 326.8 Intake, Lipid 96.0 20.6 0 Intake, Oral 0 0 0 0 Intake, Other 110 60 65 50 Intake, 687 201 725 242 511.4 TPN/PPN Intake, Tube 50 Irrigant Number 0 Bowel Movements Output, 475 300 900 325 775 350 Gastric Drainage Output, Stool 25 0 50 20 0 Output, Urine 335 400 249 322 1474 450 Patient 201 lb 207 lb 210 lb Weight Physical Exam: Intuabed. NAD. VS as above. Skin: no rash or induration Nodes: negative cervical/inguinal Neck: no mass or thyromegaly Eyes: icteric, pupils equal Lungs: rhonchi CV: no rub or murmur Abd: very tense, distended, no bowel sounds Exts: 2-3+ generalized edema, absent pedal pulses Neuro: intubated, eyes open, not following commands. Results Pertinent Lab Results: Laboratory Tests 12/26 12/26 12/26 1155 0855 0853 Chemistry Sodium (137 - 145 mmol/L) 141 Potassium (3.5 - 5.1 mmol/L) 4.3 Chloride (98 - 107 mmol/L) 101 Carbon Dioxide (22 - 30 mmol/L) 29 Anion Gap (5 - 16) 11 BUN (9 - 20 mg/dL) 86 H Creatinine (0.7 - 1.2 mg/dL) 2.4 H Estimated GFR (>60 ml/min) 26 L Glucose (65 - 99 mg/dL) 194 H Lactic Acid (0.7 - 2.1 mmol/L) 1.8 2.2 H Calcium (8.4 - 10.2 mg/dL) 8.2 L Phosphorus (2.5 - 4.5 mg/dL) 4.5 Magnesium (1.6 - 2.3 mg/dL) 2.5 H Total Bilirubin (0.2 - 1.3 mg/dL) 12.2 H Direct Bilirubin (< 0.4 mg/dL) 11.4 H AST (17 - 59 U/L) 49 ALT (21 - 72 U/L) 34 Ammonia (9 - 30 umol/L) < 9 L Albumin (3.5 - 5.0 g/dL) 1.9 L Hematology CBC w Diff MAN DIFF ORDERED WBC (4.8 - 10.8 /CUMM) 25.1 H RBC (4.70 - 6.10 /CUMM) 2.66 L Hgb (14.0 - 18.0 G/DL) 7.8 L Hct (42 - 52 %) 22.9 L MCV (80.0 - 94.0 FL) 86.1 MCH (27.0 - 31.0 PG) 29.4 RDW (11.5 - 14.5 %) 17.0 H Plt Count (130 - 400 /CUMM) 456 H MPV (7.4 - 10.4 FL) 9.6 Gran % (42.2 - 75.2 %) 91.1 H Lymphocytes % (20.5 - 51.1 %) 4.0 L Monocytes % (1.7 - 9.3 %) 4.2 Eosinophils % (0 - 5 %) 0.7 Basophils % (0.0 - 2.0 %) 0 L Absolute Granulocytes (1.4 - 6.5 /CUMM) 22.9 H Segmented Neutrophils (42.2 - 75.2 %) 82 H Band Neutrophils (0.0 - 5.0 %) 5 Absolute Lymphocytes (1.2 - 3.4 /CUMM) 1.0 L Lymphocytes (20.5 - 51.1 %) 6 L Monocytes (1.7 - 9.3 %) 4 Absolute Monocytes (0.10 - 0.60 /CUMM) 1.1 H Eosinophils (0 - 5.0 %) 1 Absolute Eosinophils (0.0 - 0.7 /CUMM) 0.2 Basophils (0.0 - 2.0 %) 1 Absolute Basophils (0.0 - 0.2 /CUMM) 0 Myelocytes (0 - 0 %) 1 H Platelet Estimate (ADEQUATE) INCREASED Polychromasia 1+ Hypochromic-Microcytic 2+ Anisocytosis 1+ PUBS MCHC (33.0 - 37.0 G/DL) 34.2 12/26 12/25 0445 0445 Chemistry Sodium (137 - 145 mmol/L) 140 142 Potassium (3.5 - 5.1 mmol/L) 4.4 4.3 Chloride (98 - 107 mmol/L) 99 100 Carbon Dioxide (22 - 30 mmol/L) 30 30 Anion Gap (5 - 16) 12 12 BUN (9 - 20 mg/dL) 83 H 63 H Creatinine (0.7 - 1.2 mg/dL) 2.3 H 1.7 H Estimated GFR (>60 ml/min) 27 L 38 L Glucose (65 - 99 mg/dL) 185 H 174 H Calcium (8.4 - 10.2 mg/dL) 8.1 L 8.0 L Phosphorus (2.5 - 4.5 mg/dL) 4.6 H 5.1 H Magnesium (1.6 - 2.3 mg/dL) 2.4 H 2.2 Total Bilirubin (0.2 - 1.3 mg/dL) 12.5 H 11.4 H Direct Bilirubin (< 0.4 mg/dL) 11.7 H 10.3 H AST (17 - 59 U/L) 54 49 ALT (21 - 72 U/L) 39 33 Albumin (3.5 - 5.0 g/dL) 1.9 L 2.0 L Prealbumin (17.6 - 36.0 mg/dL) < 3.0 L Triglycerides (<150 mg/dL) 166 H Hematology CBC w Diff MAN DIFF ORDERED MAN DIFF ORDERED WBC (4.8 - 10.8 /CUMM) 20.0 H 22.9 H RBC (4.70 - 6.10 /CUMM) 3.70 L 2.77 L Hgb (14.0 - 18.0 G/DL) 10.6 L 8.2 L Hct (42 - 52 %) 31.6 L 23.8 L MCV (80.0 - 94.0 FL) 85.6 85.7 MCH (27.0 - 31.0 PG) 28.7 29.6 RDW (11.5 - 14.5 %) 17.5 H 16.5 H Plt Count (130 - 400 /CUMM) 392 442 H MPV (7.4 - 10.4 FL) 9.8 9.5 Gran % (42.2 - 75.2 %) 91.6 H 90.7 H Lymphocytes % (20.5 - 51.1 %) 4.3 L 4.6 L Monocytes % (1.7 - 9.3 %) 3.4 4.0 Eosinophils % (0 - 5 %) 0.7 0.4 Basophils % (0.0 - 2.0 %) 0 L 0.3 Absolute Granulocytes (1.4 - 6.5 /CUMM) 18.3 H 20.7 H Segmented Neutrophils (42.2 - 75.2 %) 87 H Band Neutrophils (0.0 - 5.0 %) 1 Absolute Lymphocytes (1.2 - 3.4 /CUMM) 0.9 L 1.1 L Lymphocytes (20.5 - 51.1 %) 8 L Monocytes (1.7 - 9.3 %) 3 Absolute Monocytes (0.10 - 0.60 /CUMM) 0.7 H 0.9 H Absolute Eosinophils (0.0 - 0.7 /CUMM) 0.1 0.1 Absolute Basophils (0.0 - 0.2 /CUMM) 0 0.1 Metamyelocytes (0.0 - 1.0 %) 1 Platelet Estimate (ADEQUATE) ADEQUATE ADEQUATE Polychromasia 1+ 1+ Hypochromic-Microcytic 2+ Anisocytosis 1+ Ovalocytes FEW PUBS MCHC (33.0 - 37.0 G/DL) 33.5 34.5 Other Body Source Fld Total RBCs Counted (%) 100 12/24 12/23 7093 9770 Chemistry Sodium (137 - 145 mmol/L) 141 Potassium (3.5 - 5.1 mmol/L) 4.3 Chloride (98 - 107 mmol/L) 98 Carbon Dioxide (22 - 30 mmol/L) 30 Anion Gap (5 - 16) 14 BUN (9 - 20 mg/dL) 49 H Creatinine (0.7 - 1.2 mg/dL) 1.4 H Estimated GFR (>60 ml/min) 48 L Glucose (65 - 99 mg/dL) 212 H Calcium (8.4 - 10.2 mg/dL) 7.8 L Phosphorus (2.5 - 4.5 mg/dL) 4.9 H Magnesium (1.6 - 2.3 mg/dL) 2.1 Total Bilirubin (0.2 - 1.3 mg/dL) 10.3 H AST (17 - 59 U/L) 33 ALT (21 - 72 U/L) 29 Albumin (3.5 - 5.0 g/dL) 2.0 L Coagulation PT (9.4 - 12.5 SEC) 16.8 H INR (0.90 - 1.17) 1.61 H APTT (25 - 37 SEC) 35 Fibrinogen Activity (200 - 393 MG/DL) 572 H Fibrin Degrad Products (< 10 ug/ml) > 40 ug/ml H Cancelled D-Dimer (70 - 232 ng/ml) 2686 H Hematology CBC w Diff MAN DIFF ORDERED WBC (4.8 - 10.8 /CUMM) 25.1 H RBC (4.70 - 6.10 /CUMM) 2.90 L Hgb (14.0 - 18.0 G/DL) 8.6 L Hct (42 - 52 %) 25.0 L MCV (80.0 - 94.0 FL) 86.0 MCH (27.0 - 31.0 PG) 29.6 RDW (11.5 - 14.5 %) 16.0 H Plt Count (130 - 400 /CUMM) 467 H MPV (7.4 - 10.4 FL) 9.6 Gran % (42.2 - 75.2 %) 92.1 H Lymphocytes % (20.5 - 51.1 %) 3.2 L Monocytes % (1.7 - 9.3 %) 4.1 Eosinophils % (0 - 5 %) 0.4 Basophils % (0.0 - 2.0 %) 0.2 Absolute Granulocytes (1.4 - 6.5 /CUMM) 23.2 H Segmented Neutrophils (42.2 - 75.2 %) 90 H Band Neutrophils (0.0 - 5.0 %) 4 Absolute Lymphocytes (1.2 - 3.4 /CUMM) 0.8 L Monocytes (1.7 - 9.3 %) 4 Absolute Monocytes (0.10 - 0.60 /CUMM) 1.0 H Absolute Eosinophils (0.0 - 0.7 /CUMM) 0.1 Basophils (0.0 - 2.0 %) 1 Absolute Basophils (0.0 - 0.2 /CUMM) 0 Metamyelocytes (0.0 - 1.0 %) 1 Platelet Estimate (ADEQUATE) INCREASED Polychromasia 1+ Poikilocytosis 2+ Target Cells FEW Ovalocytes 1+ Stomatocytes 1+ PUBS MCHC (33.0 - 37.0 G/DL) 34.4 Other Body Source Fld Total RBCs Counted (%) 100 12/23 2204 Hematology CBC w Diff MAN DIFF ORDERED WBC (4.8 - 10.8 /CUMM) 24.2 H RBC (4.70 - 6.10 /CUMM) 2.92 L Hgb (14.0 - 18.0 G/DL) 8.6 L Hct (42 - 52 %) 24.8 L MCV (80.0 - 94.0 FL) 84.9 MCH (27.0 - 31.0 PG) 29.4 RDW (11.5 - 14.5 %) 16.2 H Plt Count (130 - 400 /CUMM) 473 H MPV (7.4 - 10.4 FL) 9.8 Gran % (42.2 - 75.2 %) 91.6 H Lymphocytes % (20.5 - 51.1 %) 3.6 L Monocytes % (1.7 - 9.3 %) 4.2 Eosinophils % (0 - 5 %) 0.3 Basophils % (0.0 - 2.0 %) 0.3 Absolute Granulocytes (1.4 - 6.5 /CUMM) 22.1 H Absolute Lymphocytes (1.2 - 3.4 /CUMM) 0.9 L Absolute Monocytes (0.10 - 0.60 /CUMM) 1.0 H Absolute Eosinophils (0.0 - 0.7 /CUMM) 0.1 Absolute Basophils (0.0 - 0.2 /CUMM) 0.1 Platelet Estimate (ADEQUATE) ADEQUATE Poikilocytosis 3+ Microcytic Cells 1+ Target Cells 1+ Stomatocytes 3+ PUBS MCHC (33.0 - 37.0 G/DL) 34.6 Imaging/Other Studies: CXR: R>L effusion, poor lung volumes, increased interstitial markings. Assessment/Plan Assessment/Recommendations Assessment: Patient has JUANA probably from combination of sepsis and IV contrast. Cannot rule out component of renal ischemia related to elevated abdominal compartment pressures. Interstitial nephritis and or vancomycin toxicity seems less likely. Creatinine was slightly up at time of last IV contrast. He is volume overloaded but has serum albumin of less than 2 so fillling pressures may not be that high. He is non-oliguric with acceptable lytes and oxygenation. Recommendations: Would not diurese patient as this time as blood pressure borderline low for elederly male with hypertension and he has elevated abdominal pressures so any bp drop could increase abdominal ischemia. Obviously would avoid IV contrast, NSAIDS or aminoglycosides. Will follow this patient with you.
--- NOTE | 2016-12-26 14:30 | PN- Gastroenterology ---
Assessment/Plan Assessment/Recommendations: Critically ill 89-year-old patient with peritonitis status post sigmoid perforation. Patient is awake but unresponsive. No significant events overnight but continues to be febrile with drainage from the incision site. Subjective Subjective: x Objective Vital Signs and I&Os Vital Signs Date Time Temp Pulse Resp B/P Pulse O2 O2 Flow FiO2 Ox Delivery Rate 12/26 1301 101.3 12/26 1144 30 12/26 0820 30 12/26 0710 101.7 12/26 0623 100.6 12/26 0536 30 12/26 0400 95 Ventilator 30% 12/26 0230 30 12/26 0208 100.0 12/26 0009 30 12/26 0000 92 Ventilator 30% 12/26 0000 100.0 95 22 98/60 94 Ventilator 30% 12/25 2227 101.5 12/25 2218 30 12/25 2000 94 Ventilator 30% 12/25 1905 30 12/25 1605 30 12/25 1600 94 Ventilator 30% 12/25 1600 98.6 92 22 112/60 93 Ventilator 30% Intake & Output 12/26 1600 12/26 0400 12/25 1600 12/25 0400 12/24 1600 12/24 0400 Intake Total 1217.0 909.6 1842.0 589 1176 838.2 Output Total 574 434 9979 725 2500 800 Balance 382.0 209.6 42.0 -136 -1324 38.2 Intake, IV 613 985 8206 282 1126 326.8 Intake, Lipid 96.0 20.6 0 Intake, Oral 0 0 0 0 Intake, Other 110 60 65 50 Intake, 687 201 725 242 511.4 TPN/PPN Intake, Tube 50 Irrigant Number 0 Bowel Movements Output, 475 300 900 325 775 350 Gastric Drainage Output, Stool 25 0 50 20 0 Output, Urine 335 400 367 430 1320 450 Patient 201 lb 207 lb 210 lb Weight General Appearance: trach in place, jaundiced Head: atraumatic, normal appearance Neck: supple Respiratory: scattered bilateral rhonchi, the lungs expand symmetrically and the trachea is midline Cardiovascular: regular rate/rhythm Abdomen: distended, bowel sounds absent, no erythema or drainage, colostomy contains stool, drainage from midline incision observed Extremities: 1+ pitting edema Skin: intact, warm/dry This 89-year-old gentleman was admitted approximately 23 days ago with a sigmoid perforation and severe peritonitis. Patient has had a more recent conjugated hyperbilirubinemia. In this current setting of a critically ill patient with her multiple possibilities for this. It is notable that the patient does not have evidence of cholestasis or hepatocellular damage. Differential diagnosis includes sepsis, particularly as the patient has had an elevated white cell count in the last few days. This is still the most likely etiology. Other possibilities are TPN although this tends to be more cholestatic. There is no agreed upon ideal TPN formula for minimizing TPN induced cholestasis, however however there is some suggestion that reducing the sugar content is helpful. Drug-induced liver injury is also a possibility. Specifically fluconazole and meropenem. The profile of simple hyperbilirubinemia is however atypical for both of these, one would expect some degree of evidence of cholestasis with an elevation in alkaline phosphatase. In summary the hyperbilirubinemia in this patient is likely secondary to a persistent intra-abdominal sepsis. There is no specific therapy for it and it's course will be determined by ability to contain the peritonitis. Results Pertinent Lab Results: Laboratory Tests 12/26 12/26 12/26 1155 0855 0853 Chemistry Sodium (137 - 145 mmol/L) 141 Potassium (3.5 - 5.1 mmol/L) 4.3 Chloride (98 - 107 mmol/L) 101 Carbon Dioxide (22 - 30 mmol/L) 29 Anion Gap (5 - 16) 11 BUN (9 - 20 mg/dL) 86 H Creatinine (0.7 - 1.2 mg/dL) 2.4 H Estimated GFR (>60 ml/min) 26 L Glucose (65 - 99 mg/dL) 194 H Lactic Acid (0.7 - 2.1 mmol/L) 1.8 2.2 H Calcium (8.4 - 10.2 mg/dL) 8.2 L Phosphorus (2.5 - 4.5 mg/dL) 4.5 Magnesium (1.6 - 2.3 mg/dL) 2.5 H Total Bilirubin (0.2 - 1.3 mg/dL) 12.2 H Direct Bilirubin (< 0.4 mg/dL) 11.4 H AST (17 - 59 U/L) 49 ALT (21 - 72 U/L) 34 Ammonia (9 - 30 umol/L) < 9 L Albumin (3.5 - 5.0 g/dL) 1.9 L Hematology CBC w Diff MAN DIFF ORDERED WBC (4.8 - 10.8 /CUMM) 25.1 H RBC (4.70 - 6.10 /CUMM) 2.66 L Hgb (14.0 - 18.0 G/DL) 7.8 L Hct (42 - 52 %) 22.9 L MCV (80.0 - 94.0 FL) 86.1 MCH (27.0 - 31.0 PG) 29.4 RDW (11.5 - 14.5 %) 17.0 H Plt Count (130 - 400 /CUMM) 456 H MPV (7.4 - 10.4 FL) 9.6 Gran % (42.2 - 75.2 %) 91.1 H Lymphocytes % (20.5 - 51.1 %) 4.0 L Monocytes % (1.7 - 9.3 %) 4.2 Eosinophils % (0 - 5 %) 0.7 Basophils % (0.0 - 2.0 %) 0 L Absolute Granulocytes (1.4 - 6.5 /CUMM) 22.9 H Segmented Neutrophils (42.2 - 75.2 %) 82 H Band Neutrophils (0.0 - 5.0 %) 5 Absolute Lymphocytes (1.2 - 3.4 /CUMM) 1.0 L Lymphocytes (20.5 - 51.1 %) 6 L Monocytes (1.7 - 9.3 %) 4 Absolute Monocytes (0.10 - 0.60 /CUMM) 1.1 H Eosinophils (0 - 5.0 %) 1 Absolute Eosinophils (0.0 - 0.7 /CUMM) 0.2 Basophils (0.0 - 2.0 %) 1 Absolute Basophils (0.0 - 0.2 /CUMM) 0 Myelocytes (0 - 0 %) 1 H Platelet Estimate (ADEQUATE) INCREASED Polychromasia 1+ Hypochromic-Microcytic 2+ Anisocytosis 1+ PUBS MCHC (33.0 - 37.0 G/DL) 34.2 12/26 12/25 0445 0445 Chemistry Sodium (137 - 145 mmol/L) 140 142 Potassium (3.5 - 5.1 mmol/L) 4.4 4.3 Chloride (98 - 107 mmol/L) 99 100 Carbon Dioxide (22 - 30 mmol/L) 30 30 Anion Gap (5 - 16) 12 12 BUN (9 - 20 mg/dL) 83 H 63 H Creatinine (0.7 - 1.2 mg/dL) 2.3 H 1.7 H Estimated GFR (>60 ml/min) 27 L 38 L Glucose (65 - 99 mg/dL) 185 H 174 H Calcium (8.4 - 10.2 mg/dL) 8.1 L 8.0 L Phosphorus (2.5 - 4.5 mg/dL) 4.6 H 5.1 H Magnesium (1.6 - 2.3 mg/dL) 2.4 H 2.2 Total Bilirubin (0.2 - 1.3 mg/dL) 12.5 H 11.4 H Direct Bilirubin (< 0.4 mg/dL) 11.7 H 10.3 H AST (17 - 59 U/L) 54 49 ALT (21 - 72 U/L) 39 33 Albumin (3.5 - 5.0 g/dL) 1.9 L 2.0 L Prealbumin (17.6 - 36.0 mg/dL) < 3.0 L Triglycerides (<150 mg/dL) 166 H Hematology CBC w Diff MAN DIFF ORDERED MAN DIFF ORDERED WBC (4.8 - 10.8 /CUMM) 20.0 H 22.9 H RBC (4.70 - 6.10 /CUMM) 3.70 L 2.77 L Hgb (14.0 - 18.0 G/DL) 10.6 L 8.2 L Hct (42 - 52 %) 31.6 L 23.8 L MCV (80.0 - 94.0 FL) 85.6 85.7 MCH (27.0 - 31.0 PG) 28.7 29.6 RDW (11.5 - 14.5 %) 17.5 H 16.5 H Plt Count (130 - 400 /CUMM) 392 442 H MPV (7.4 - 10.4 FL) 9.8 9.5 Gran % (42.2 - 75.2 %) 91.6 H 90.7 H Lymphocytes % (20.5 - 51.1 %) 4.3 L 4.6 L Monocytes % (1.7 - 9.3 %) 3.4 4.0 Eosinophils % (0 - 5 %) 0.7 0.4 Basophils % (0.0 - 2.0 %) 0 L 0.3 Absolute Granulocytes (1.4 - 6.5 /CUMM) 18.3 H 20.7 H Segmented Neutrophils (42.2 - 75.2 %) 87 H Band Neutrophils (0.0 - 5.0 %) 1 Absolute Lymphocytes (1.2 - 3.4 /CUMM) 0.9 L 1.1 L Lymphocytes (20.5 - 51.1 %) 8 L Monocytes (1.7 - 9.3 %) 3 Absolute Monocytes (0.10 - 0.60 /CUMM) 0.7 H 0.9 H Absolute Eosinophils (0.0 - 0.7 /CUMM) 0.1 0.1 Absolute Basophils (0.0 - 0.2 /CUMM) 0 0.1 Metamyelocytes (0.0 - 1.0 %) 1 Platelet Estimate (ADEQUATE) ADEQUATE ADEQUATE Polychromasia 1+ 1+ Hypochromic-Microcytic 2+ Anisocytosis 1+ Ovalocytes FEW PUBS MCHC (33.0 - 37.0 G/DL) 33.5 34.5 Other Body Source Fld Total RBCs Counted (%) 100 12/24 12/23 0417 2227 Chemistry Sodium (137 - 145 mmol/L) 141 Potassium (3.5 - 5.1 mmol/L) 4.3 Chloride (98 - 107 mmol/L) 98 Carbon Dioxide (22 - 30 mmol/L) 30 Anion Gap (5 - 16) 14 BUN (9 - 20 mg/dL) 49 H Creatinine (0.7 - 1.2 mg/dL) 1.4 H Estimated GFR (>60 ml/min) 48 L Glucose (65 - 99 mg/dL) 212 H Calcium (8.4 - 10.2 mg/dL) 7.8 L Phosphorus (2.5 - 4.5 mg/dL) 4.9 H Magnesium (1.6 - 2.3 mg/dL) 2.1 Total Bilirubin (0.2 - 1.3 mg/dL) 10.3 H AST (17 - 59 U/L) 33 ALT (21 - 72 U/L) 29 Albumin (3.5 - 5.0 g/dL) 2.0 L Coagulation PT (9.4 - 12.5 SEC) 16.8 H INR (0.90 - 1.17) 1.61 H APTT (25 - 37 SEC) 35 Fibrinogen Activity (200 - 393 MG/DL) 572 H Fibrin Degrad Products (< 10 ug/ml) > 40 ug/ml H Cancelled D-Dimer (70 - 232 ng/ml) 2686 H Hematology CBC w Diff MAN DIFF ORDERED WBC (4.8 - 10.8 /CUMM) 25.1 H RBC (4.70 - 6.10 /CUMM) 2.90 L Hgb (14.0 - 18.0 G/DL) 8.6 L Hct (42 - 52 %) 25.0 L MCV (80.0 - 94.0 FL) 86.0 MCH (27.0 - 31.0 PG) 29.6 RDW (11.5 - 14.5 %) 16.0 H Plt Count (130 - 400 /CUMM) 467 H MPV (7.4 - 10.4 FL) 9.6 Gran % (42.2 - 75.2 %) 92.1 H Lymphocytes % (20.5 - 51.1 %) 3.2 L Monocytes % (1.7 - 9.3 %) 4.1 Eosinophils % (0 - 5 %) 0.4 Basophils % (0.0 - 2.0 %) 0.2 Absolute Granulocytes (1.4 - 6.5 /CUMM) 23.2 H Segmented Neutrophils (42.2 - 75.2 %) 90 H Band Neutrophils (0.0 - 5.0 %) 4 Absolute Lymphocytes (1.2 - 3.4 /CUMM) 0.8 L Monocytes (1.7 - 9.3 %) 4 Absolute Monocytes (0.10 - 0.60 /CUMM) 1.0 H Absolute Eosinophils (0.0 - 0.7 /CUMM) 0.1 Basophils (0.0 - 2.0 %) 1 Absolute Basophils (0.0 - 0.2 /CUMM) 0 Metamyelocytes (0.0 - 1.0 %) 1 Platelet Estimate (ADEQUATE) INCREASED Polychromasia 1+ Poikilocytosis 2+ Target Cells FEW Ovalocytes 1+ Stomatocytes 1+ PUBS MCHC (33.0 - 37.0 G/DL) 34.4 Other Body Source Fld Total RBCs Counted (%) 100 12/23 2204 Hematology CBC w Diff MAN DIFF ORDERED WBC (4.8 - 10.8 /CUMM) 24.2 H RBC (4.70 - 6.10 /CUMM) 2.92 L Hgb (14.0 - 18.0 G/DL) 8.6 L Hct (42 - 52 %) 24.8 L MCV (80.0 - 94.0 FL) 84.9 MCH (27.0 - 31.0 PG) 29.4 RDW (11.5 - 14.5 %) 16.2 H Plt Count (130 - 400 /CUMM) 473 H MPV (7.4 - 10.4 FL) 9.8 Gran % (42.2 - 75.2 %) 91.6 H Lymphocytes % (20.5 - 51.1 %) 3.6 L Monocytes % (1.7 - 9.3 %) 4.2 Eosinophils % (0 - 5 %) 0.3 Basophils % (0.0 - 2.0 %) 0.3 Absolute Granulocytes (1.4 - 6.5 /CUMM) 22.1 H Absolute Lymphocytes (1.2 - 3.4 /CUMM) 0.9 L Absolute Monocytes (0.10 - 0.60 /CUMM) 1.0 H Absolute Eosinophils (0.0 - 0.7 /CUMM) 0.1 Absolute Basophils (0.0 - 0.2 /CUMM) 0.1 Platelet Estimate (ADEQUATE) ADEQUATE Poikilocytosis 3+ Microcytic Cells 1+ Target Cells 1+ Stomatocytes 3+ PUBS MCHC (33.0 - 37.0 G/DL) 34.6
[2016-12-26 16:00] VITALS: BP 92/50
--- NOTE | 2016-12-26 16:39 | CT SCAN REPORT ---
EXAMINATION: CT ABDOMEN AND PELVIS WITHOUT INTRAVENOUS CONTRAST CLINICAL INFORMATION: Distended abdomen with limited ostomy output. Evaluate for perforation. COMPARISON: CT chest, abdomen and pelvis with contrast 12/22/2016. Multiple prior CTs of the abdomen and pelvis dating back to 12/02/2016. TECHNIQUE: Multidetector volumetric imaging was performed from the superior aspect of the liver through the pubic symphysis following administration of oral contrast. Sagittal and coronal reformatted images were obtained on the technologist's workstation. DLP: 1202 mGy-cm. FINDINGS: Limited evaluation of the solid abdominal viscera in the absence of intravenous contrast. LUNG BASES: Evaluation of the included lung bases demonstrates interval decrease in size of previously identified bilateral pleural effusions. These pleural effusions are small in volume but overall decreased relative to the prior examination. The heart is normal in size. Hypoattenuation of the blood pool relative to myocardium is suggestive of underlying anemia. LIVER, GALLBLADDER, AND BILIARY TREE: The liver is normal in size, shape, and attenuation. There are punctate calcifications within the liver parenchyma, most likely food service sales representatives of hepatic granulomas. No contour deforming hepatic lesion or biliary ductal dilatation is present. The gallbladder is physiologically distended, without evidence of gallstones, gallbladder wall thickening or pericholecystic inflammatory changes. PANCREAS: Unremarkable. SPLEEN: Small volume perisplenic ascites, slightly increased in volume relative to the prior examination. Perisplenic fluid is hypoattenuating and is food service sales representatives of simple ascitic fluid. ADRENAL GLANDS: Unremarkable. KIDNEYS AND URETERS: The kidneys are normal in size, shape and contour. No contour deforming renal lesions are identified. No renal or ureteral stones are identified and there is no hydroureteronephrosis of either kidney or renal collecting system BLADDER: The urinary bladder is decompressed by an indwelling Edward catheter. Air within the bladder lumen is iatrogenic. Of note, portions of the bladder dome are identified within the left inguinal hernia, accounting for air within the left inguinal hernia. GASTROINTESTINAL TRACT: Evaluation of the gastrointestinal system is again notable for postsurgical changes related to prior partial left colectomy and descending left lower quadrant colostomy. No parastomal hernia is identified. Abdominal and pelvic bowel loops appear to be normal in caliber, without findings suggestive of small bowel obstruction. Ingested oral contrast is identified to the level of the proximal jejunum. There is circumferential small bowel wall thickening. This finding is nonspecific but could reflect secondary reactive inflammatory changes within small bowel and mucosal edema given diffuse mesenteric stranding and small volume intra-abdominal ascites. Redemonstrated are postsurgical changes related to midline laparotomy with air visualized at the surgical site and subjacent to the incisional hernia. The amount of free intraperitoneal air within this region does not appear significantly changed relative to the prior exam. There are no additional extraluminal foci of air within the abdomen or pelvis to suggest a new site of perforation. The Kirkland's pouch appears unremarkable. No large intra-abdominal fluid collections are identified. ABDOMINAL WALL: As noted above, there are postsurgical changes related to prior midline laparotomy, with air identified along the incisional hernia. Minimal intraperitoneal air is visualized subjacent to the midline incisional hernia but does not appear significantly increased in volume relative to the prior exam. Diffuse soft tissue anasarca. LYMPH NODES: Subcentimeter mesenteric and retroperitoneal lymph nodes. No significant deep pelvic or inguinal adenopathy. VASCULAR: Scattered atherosclerosis of the abdominal aorta and its branching vessels, without aneurysmal dilatation. PELVIC VISCERA: Unremarkable. OSSEOUS STRUCTURES: No acute osseous abnormality. No visible destructive osseous lesions. Mild multilevel degenerative disc disease and facet arthrosis of the imaged thoracolumbar spine. Chronic compression deformity involving the T11 and L1 vertebral bodies with patchy sclerosis of the T11 vertebral body. IMPRESSION: 1. No significant interval change in the appearance of the abdomen and pelvis, when accounting for differences in technique. Postsurgical changes related to prior partial left colectomy and descending left lower quadrant colostomy. Abdominal and pelvic bowel loops are normal in caliber, without findings suggestive of small bowel obstruction. There are mildly prominent loops of small bowel within the abdomen with no visible transition site, corresponding to post operative ileus. 2. Midline laparotomy with air identified along the midline incision. There is minimal intraperitoneal air subjacent to the midline incision, not significantly changed relative to the prior exam. No new foci of intraperitoneal air are identified. 3. Minimal perihepatic ascites. No organizing intra-abdominal or pelvic fluid collections. Diffuse mesenteric edema and stranding appears grossly unchanged. 4. Echogenic air within the bladder. Portions of the bladder dome are identified within the left inguinal canal, accounting for air and fluid within the left inguinal canal. There is a partially visualized left-sided hydrocele. 5. Slight interval decrease in size of previously identified small bilateral pleural effusions.
[2016-12-26 23:06] LABS: ABSOLUTE BASOPHIL COUNT 0 /CUMM (0.0-0.2); ABSOLUTE EOSINOPHIL COUNT 0.3 /CUMM (0.0-0.7); ABSOLUTE GRANULOCYTE CT 24.3 /CUMM (1.4-6.5); ABSOLUTE MONOCYTE COUNT 1.1 /CUMM (0.10-0.60); BASOPHIL % 0.1 % (0.0-2.0); HEMATOCRIT 25.6 % (42-52); MEAN CORPUSCULAR HGB CONC 34.2 G/DL (33.0-37.0); MEAN CORPUSCULAR VOLUME 84.7 FL (80.0-94.0); MEAN PLATELET VOLUME 9.4 FL (7.4-10.4); PLATELET COUNT 481 /CUMM (130-400); RBC DISTRIBUTION WIDTH 16.7 % (11.5-14.5); RED BLOOD CELL CT 3.02 /CUMM (4.70-6.10); WHITE BLOOD CELL COUNT 26.7 /CUMM (4.8-10.8)
[2016-12-26 23:08] LABS: GRANULOCYTE % 90.9 % (42.2-75.2)
[2016-12-27] VITALS: BP 124/66
[2016-12-27 04:35] LABS: ABSOLUTE BASOPHIL COUNT 0 /CUMM (0.0-0.2); ABSOLUTE EOSINOPHIL COUNT 0.3 /CUMM (0.0-0.7); ABSOLUTE GRANULOCYTE CT 23.1 /CUMM (1.4-6.5); ABSOLUTE MONOCYTE COUNT 1.2 /CUMM (0.10-0.60); BASOPHIL % 0.1 % (0.0-2.0); EOSINOPHIL % 1.1 % (0-5); GRANULOCYTE % 90.2 % (42.2-75.2); HEMATOCRIT 24.5 % (42-52); MEAN CORPUSCULAR HGB 29.4 PG (27.0-31.0); MEAN CORPUSCULAR HGB CONC 34.7 G/DL (33.0-37.0); MEAN CORPUSCULAR VOLUME 84.8 FL (80.0-94.0); MEAN PLATELET VOLUME 9.8 FL (7.4-10.4); PLATELET COUNT 444 /CUMM (130-400); RBC DISTRIBUTION WIDTH 16.3 % (11.5-14.5); WHITE BLOOD CELL COUNT 25.6 /CUMM (4.8-10.8)
--- NOTE | 2016-12-27 06:56 | RADIOLOGY REPORT ---
EXAMINATION: CHEST 1 VIEW CLINICAL INFORMATION: Intubated. COMPARISON: Multiple prior exams are reviewed. The most recent is from 12/26/2016. TECHNIQUE: An AP view of the chest is provided. FINDINGS: The cardiac silhouette is stable. The tracheostomy tube and enteric tube are in unchanged position. The appearance of interstitial prominence row both lungs is relatively stable. There are no focal consolidations. There are neither pleural effusions nor pneumothoraces. The osseous structures are stable. IMPRESSION: Tracheostomy tube and enteric tube in unchanged position. No acute airspace disease. Stable appearance of the interstitial prominence throughout the lungs.
--- NOTE | 2016-12-27 07:21 | PN- General Surgery ---
See Addendum Subjective Subjective: Patient is having bilious drainage from his midline wound, with some purulence. Continues to have intermittent fevers. He had a CT scan yesterday which revealed circumferential bowel wall thickening, but otherwise no new collections. He did have an episode of hypotension yesterday, requiring 500 mL bolus, which he responded well to. Objective Vital Signs and I&Os Vital Signs Date Time Temp Pulse Resp B/P Pulse O2 O2 Flow FiO2 Ox Delivery Rate 12/27 0557 30 12/27 0400 93 Ventilator 30% 12/27 0310 30 12/27 0138 100.0 12/27 0039 101.0 12/27 0029 30 12/27 0000 94 Ventilator 30% 12/27 0000 101.0 96 16 124/66 94 Ventilator 30% 12/26 2235 12/26 2200 98 Ventilator 30% 12/26 1930 30 12/26 1600 94 Ventilator 30% 12/26 1600 98.7 90 19 92/50 94 Ventilator 30% 12/26 1530 12/26 1455 30 12/26 1400 98.3 12/26 1301 101.3 12/26 1200 100.5 94 16 100/74 97 Ventilator 30% 12/26 1144 30 12/26 0820 30 12/26 0800 94 Ventilator 30% 12/26 0800 99.7 100 22 110/60 94 Ventilator 30% Intake & Output 12/27 0800 12/27 0000 12/26 1600 12/26 0800 12/26 0000 12/25 1600 Intake Total 1926.0 1372.0 2068.8 1217.0 909.6 1153.0 Output Total 741 918 8502 835 700 800 Balance 1681.0 970.0 1008.8 382.0 209.6 353.0 Intake, Blood 350 Product Intake, IV 1160 801 630 384 578 368 Intake, Lipid 95.0 41.0 107.8 96.0 20.6 0 Intake, Other 560 110 60 Intake, 671 180 771 687 201 725 TPN/PPN Intake, Tube 50 Irrigant Output, 50 100 Emesis Output, 100 200 550 475 300 350 Gastric Drainage Output, Stool 10 10 10 25 0 50 Output, Urine 135 142 400 335 400 400 Patient 201 lb 207 lb Weight Physical Exam: Gen.: Patient opens his eyes to command, but remains very drowsy. Abdomen: The midline incision contains singh and a skipped fashion with intermittent openings that are draining some clear bilious fluid and some purulent bilious fluid. His abdomen remains distended and firm. The stoma is pink, edematous, but viable. There is a small amount of clear bilious liquid and some air in the bag. ?Occasional bowel sound heard. Assessment/Plan Assessment/Plan Patient is an 89-year-old male who is now postoperative day #24 status post exploratory laparotomy with Kirkland's procedure for perforated viscus. He is postoperative day 14 for washout. His postoperative course has been complicated by sepsis with multiorgan failure. Plan: -Continue dry dressing changes daily. -Monitor ostomy output. -Continue IV antibiotics as per ID. -No surgical intervention is planned at this time. -Continue TPN for nutritional support. -Medical management per critical care team. -Appreciate GI and nephrology input. -Will discuss with attending. Core Measures/Miscellaneous Edward Catheter Date In: 12/02/16 Venous Thromboembolism VTE Risk Factors: Acute medical illness, Age > 40, Surgery VTE Contraindications: No Contraindications VTE Prophylaxis Ordered Inpt Mech & Pharm VTE Diagnosis: No Beta Abelardo Is Beta Abelardo a Home Med? No Antibiotics Is Patient on Antibiotics? Yes If Yes: infection
--- NOTE | 2016-12-27 07:58 | PN- Resident CRCU ---
Subjective HPI/CRCU Issues: Patient was seen and examined. Patient is arousable to verbal and tactile stimulation. He is unable to provide any review of systems. Patient is ventilated through the tracheostomy. No sign of infection or bleeding around his IVs. His jaundice is getting worse, his abdomen looks more distended, with yellow-white discharge from his surgical wound. Objective Vital Signs & I&O Last 8 Hrs of Vitals and I&O: Intake & Output 12/27 1600 12/27 0800 12/27 0000 Intake Total 1926.0 1372.0 Output Total 245 402 Balance 1681.0 970.0 Intake, Blood 350 Product Intake, IV 1160 801 Intake, Lipid 95.0 41.0 Intake, 671 180 TPN/PPN Output, 50 Emesis Output, 100 200 Gastric Drainage Output, Stool 10 10 Output, Urine 135 142 Laboratory Tests 12/27 12/26 0405 2245 Chemistry Sodium (137 - 145 mmol/L) 140 Potassium (3.5 - 5.1 mmol/L) 4.6 Chloride (98 - 107 mmol/L) 102 Carbon Dioxide (22 - 30 mmol/L) 26 Anion Gap (5 - 16) 12 BUN (9 - 20 mg/dL) 102 *H Creatinine (0.7 - 1.2 mg/dL) 3.2 H Estimated GFR (>60 ml/min) 18 L Glucose (65 - 99 mg/dL) 158 H Calcium (8.4 - 10.2 mg/dL) 8.1 L Phosphorus (2.5 - 4.5 mg/dL) 4.3 Magnesium (1.6 - 2.3 mg/dL) 2.5 H Total Bilirubin (0.2 - 1.3 mg/dL) 13.0 H AST (17 - 59 U/L) 45 ALT (21 - 72 U/L) 32 Albumin (3.5 - 5.0 g/dL) 1.9 L Hematology CBC w Diff MAN DIFF ORDERED NO MAN DIFF REQ WBC (4.8 - 10.8 /CUMM) 25.6 H 26.7 H RBC (4.70 - 6.10 /CUMM) 2.90 L 3.02 L Hgb (14.0 - 18.0 G/DL) 8.5 L 8.8 L Hct (42 - 52 %) 24.5 L 25.6 L MCV (80.0 - 94.0 FL) 84.8 84.7 MCH (27.0 - 31.0 PG) 29.4 29.0 RDW (11.5 - 14.5 %) 16.3 H 16.7 H Plt Count (130 - 400 /CUMM) 444 H 481 H MPV (7.4 - 10.4 FL) 9.8 9.4 Gran % (42.2 - 75.2 %) 90.2 H 90.9 H Lymphocytes % (20.5 - 51.1 %) 4.1 L 3.9 L Monocytes % (1.7 - 9.3 %) 4.5 4.1 Eosinophils % (0 - 5 %) 1.1 1.0 Basophils % (0.0 - 2.0 %) 0.1 0.1 Absolute Granulocytes (1.4 - 6.5 /CUMM) 23.1 H 24.3 H Segmented Neutrophils (42.2 - 75.2 %) 88 H Band Neutrophils (0.0 - 5.0 %) 3 Absolute Lymphocytes (1.2 - 3.4 /CUMM) 1.0 L 1.0 L Lymphocytes (20.5 - 51.1 %) 2 L Monocytes (1.7 - 9.3 %) 2 Absolute Monocytes (0.10 - 0.60 /CUMM) 1.2 H 1.1 H Eosinophils (0 - 5.0 %) 1 Absolute Eosinophils (0.0 - 0.7 /CUMM) 0.3 0.3 Absolute Basophils (0.0 - 0.2 /CUMM) 0 0 Metamyelocytes (0.0 - 1.0 %) 4 H Platelet Estimate (ADEQUATE) INCREASED Polychromasia 1+ Hypochromic-Microcytic 2+ PUBS MCHC (33.0 - 37.0 G/DL) 34.7 34.2 Exam General Appearance: sedated, intubated Head: atraumatic Neck: normal inspection, supple Respiratory: rhonchi over both lungs Cardiovascular: regular rate/rhythm Gastrointestinal: distended, tense, surgical incision with clips in place and yellow, white discharge through it Extremities: trace edema Weaning Parameters NIF: 42 Minute Volume: 13 Resp rate: 24 Vt: 520 Heart Rate: 107 Weaning Schedule Start Time: 0835 Minute Volume: 13 Resp Rate: 26 Vt: 559 Heart Rate: 98 End Time: 0839 Minute Volume: 17 Resp Rate: 56 Vt: 200 Heart Rate: 120 Start Time: 1142 Minute Volume: 12 Resp Rate: 22 Vt: 490 Heart Rate: 100 End Time: 1150 Resp Rate: 55 Vt: 169 Heart Rate: 102 Current Medications: Current Medications Sig/Ar Start time Last Medication Dose Route Stop Time Status Admin Acetaminophen 640 MG Q4P PRN 12/23 1415 AC 12/27 PO 0039 Albuterol Sulfate 3 ML EVERY 4 HRS/AWAKE 12/06 1600 AC 12/27 INH 1108 Fat Emulsion 250 ML Q20H ONE 12/27 1900 AC Intravenous IV 12/28 1459 Fat Emulsion 250 ML Q20H ONE 12/26 1900 AC 12/26 Intravenous IV 12/27 1459 2100 Fluconazole 400 MG Q48 12/28 1000 CAN Sodium Chloride 200 ML IV Fluconazole 200 MG Q48H 12/28 1000 DC Sodium Chloride 100 ML IV Fluconazole 400 MG DAILY 12/18 1000 DC 12/26 Sodium Chloride 200 ML IV 1028 Fluconazole 200 MG DAILY 12/18 1000 DC 12/26 Sodium Chloride 100 ML IV 1301 Heparin Sodium 5,000 UNIT Q8 12/24 1400 AC 12/27 (Porcine) SC 1407 Ipratropium [place] 2.5 ML EVERY 4 HRS/AWAKE 12/06 1600 AC 12/27 INH 1108 Lorazepam 1 MG Q4P PRN 12/13 1715 DC 12/22 IV 1220 Meropenem 1 GM Q12H 12/27 0600 DC 12/27 IV 0531 Meropenem 1 GM Q8H 12/15 1000 DC 12/26 IV 1800 Ondansetron HCl 4 MG Q6P PRN 12/02 1800 AC 12/22 IV 1233 Pantoprazole Sodium 40 MG DAILY 12/02 2200 AC 12/27 IV 1014 Petrolatum 1 CECY DAILY NEEDED PRN 12/11 2215 AC 12/23 OPH 1532 Sodium Chloride 500 ML BOLUS ONE 12/27 1045 DC 12/27 IV 12/27 1144 1041 Sodium Chloride 500 ML BOLUS ONE 12/27 0145 DC 12/27 IV 12/27 0244 0145 Sodium Chloride 1,000 ML Q10H 12/26 1900 AC 12/27 IV 0300 Sodium Chloride 1,000 ML Q13H 12/25 1400 DC 12/25 IV 1430 Total Parenteral 1 UNIT 1900 12/27 1900 AC Nutrition IV 12/28 1459 Total Parenteral 1 UNIT 1900 12/26 1900 DC 12/26 Nutrition IV 12/27 1259 2100 Vancomycin HCl 1,000 MG 12/23 1700 DC 12/26 Dextrose/Water 250 ML IV 1700 Impression/Plan Impression/Problem List Impression: 89/M with PMH of asthma, HTN, bilateral inguinal hernia s/p repair 30 years ago presented to [facility] on 12/12/15 c/o acute abdominal pain. He was found to have acute perforation of sigmoid colon complicated by peritonitis. He underwent emergent surgery with Henny's procedure. He was subsequently sent to ICU for hemodynamic stabilization, further care as patient is at high risk for infection/respiratory failure post extubation. Today he is still on ventilated through tracheostomy, slightly arousable, and spiking fevers. He has fast rate and slightly low blood pressure Plan Respiratory: #Respiratory failure. * Patient has history of COPD. * Patient is on mechanically ventilated through tracheostomy. His ventilation sittings are tidal volume to 500 and respiratory rate of 16. Infectious Diseases: #Recurrent Fever explaratory laparotomy. Post op day #24 Underwent repeat drainage during ICU stay. OR cultures was sent and was positive for Gram postive cocci and gram negative rods. * He is still febrile with Tmax of 101.3 yesterday. WBCs today is 25.6(elevated comparing to yesterday) * As per infectious disease recommendation , we will DC all IV meropenem Q8 1gm, Fluconazol 600 daily, and vancomycin 1 g daily * panculture, will follow the results. * C. difficile, we will follow the results * Paracentesis fluid culture is pending * We will continue liq acetaminophen and cooling blankets when necessary. Cardiovascular: #New onset A. fib postoperativey (resolved). Patient developed A. fib post operative, most likely patient was on stress because of sepsis. He was started on amiodarone drip, patient then converted back to normal sinus rhythm after which a major on trip was discontinued. Currently he is maintaining normal sinus rhythm #New onset bilateral lower extremity edema. Bilateral lower extremity Doppler was done to exclude DVTs as a possible explanation. Results came back negative for DVTs. * we'll keep negative balance #Right Cephalic vein thrombosis Patient was found to have superficial thrombosis in right cephalic vein. He had a peripheral line in that region at the time of surgery. This thrombosis is a superficial and most likely will not lead to any DVTs. * Warm compressors without any anticoagulation for now. Hematology: Patient H&H is dropping even after blood transfusion. patient LDH is highly elevated, total bilirubin is elevated, hematology believe it's not hemostatic anemia. Last H&H is 8.5 and 24.5 * We will repeat CBC daily * We will follow any further hematology oncology recommendation Metabolic: #JUANA Today his creatinine is 3.2 which is higher than yesterday 2.4 * Patient was given 500 mL bolus * We will continue IV fluids on the rate of 100 per hour * We will follow nephrology recommendation Alimentary: #Hyperbilirubinemia Hematology believe it's not because of hemodialysis. X-ray was done and showed or lytic ileus however surgery believe that no surgical intervention will be needed now. Is the pattern looks like obstructive gallbladder pathology. However HIDA scan was done yesterday and suggest that it's not obstructive. We consulted GI (Dr. Torres), GI bleeds it's from the sepsis, TPN and or drug induced. * NPO with NG decompression * TPN - day 19. * we'll cont' GI prophylaxis. * Colostomy bag in place with active drainage * Bowel sounds decreased. * Surgery is on board we will follow their recommendation. * GI is on board we will follow their recommendation Neurological: Patient is sedated and ventilated through tracheostomy Patient is arousable to verbal and tactile stimulus. Endocrinology No endocrinology issue at the time SKI No current skin issues Diet patient is nothing by mouth * We'll continue TPN DVT/Prophylaxis: sc lovenox Code Status: Full Code * We may discuss CODE STATUS tomorrow with the family Problem List: 1. Peritonitis Pain Ratin Tomorrow's Labs & Rationales: cbc and ICU bundle Plan DVT/Prophylaxis: sc heparin Code Status: Full Code Plan DVT/Prophylaxis: sc heparin Code Status: Full Code
[2016-12-27 08:00] VITALS: BP 120/70
--- NOTE | 2016-12-27 09:29 | PN- CRCU ---
Subjective HPI/Critical Care Issues: The patient continues to do poorly. His urine output has decreased, and his creatinine is now 3.2.. He continues to have significant jaundice. He remains ventilator dependent. His blood pressure remains borderline. Objective Current Medications: Current Medications Sig/Ar Start time Last Medication Dose Route Stop Time Status Admin Acetaminophen 640 MG Q4P PRN 12/23 1415 AC 12/27 PO 0039 Albuterol Sulfate 3 ML EVERY 4 HRS/AWAKE 12/06 1600 AC 12/27 INH 0809 Fat Emulsion 250 ML Q20H ONE 12/26 1900 AC 12/26 Intravenous IV 12/27 1459 2100 Fat Emulsion 250 ML ONCE ONE 12/25 1900 DC 12/25 Intravenous IV 12/26 1459 2045 Fluconazole 400 MG Q48 12/28 1000 AC Sodium Chloride 200 ML IV Fluconazole 200 MG Q48H 12/28 1000 AC Sodium Chloride 100 ML IV Fluconazole 400 MG DAILY 12/18 1000 DC 12/26 Sodium Chloride 200 ML IV 1028 Fluconazole 200 MG DAILY 12/18 1000 DC 12/26 Sodium Chloride 100 ML IV 1301 Heparin Sodium 5,000 UNIT Q8 12/24 1400 AC 12/27 (Porcine) SC 0532 Ipratropium [place] 2.5 ML EVERY 4 HRS/AWAKE 12/06 1600 AC 12/27 INH 0810 Lorazepam 1 MG Q4P PRN 12/13 1715 DC 12/22 IV 1220 Meropenem 1 GM Q12H 12/27 0600 AC 12/27 IV 0531 Meropenem 1 GM Q8H 12/15 1000 DC 12/26 IV 1800 Ondansetron HCl 4 MG Q6P PRN 12/02 1800 AC 12/22 IV 1233 Pantoprazole Sodium 40 MG DAILY 12/02 2200 AC 12/26 IV 1029 Petrolatum 1 CECY DAILY NEEDED PRN 12/11 2215 AC 12/23 OPH 1532 Sodium Chloride 500 ML BOLUS ONE 12/27 0145 DC 12/27 IV 12/27 0244 0145 Sodium Chloride 1,000 ML Q10H 12/26 1900 AC 12/27 IV 0300 Sodium Chloride 1,000 ML Q13H 12/25 1400 DC 12/25 IV 1430 Total Parenteral 1 UNIT 1900 12/26 1900 AC 12/26 Nutrition IV 12/27 1259 2100 Total Parenteral 1 UNIT 1900 12/25 1900 DC 12/25 Nutrition IV 12/27 0858 2045 Vancomycin HCl 1,000 MG 1700 12/23 1700 DC 12/26 Dextrose/Water 250 ML IV 1700 Vital Signs & I&O Last 24 Hrs of Vitals and I&O: Vital Signs Date Time Temp Pulse Resp B/P Pulse O2 O2 Flow FiO2 Ox Delivery Rate 12/27 0806 30 12/27 0557 30 12/27 0400 93 Ventilator 30% 12/27 0310 30 12/27 0138 100.0 12/27 0039 101.0 12/27 0029 30 12/27 0000 94 Ventilator 30% 12/27 0000 101.0 96 16 124/66 94 Ventilator 30% 12/26 2235 30 12/26 2200 98 Ventilator 30% 12/26 1930 30 12/26 1600 94 Ventilator 30% 12/26 1600 98.7 90 19 92/50 94 Ventilator 30% 12/26 1530 30 12/26 1455 30 12/26 1400 98.3 12/26 1301 101.3 12/26 1200 100.5 94 16 100/74 97 Ventilator 30% 12/26 1144 30 Intake & Output 12/27 1600 12/27 0800 12/27 0000 Intake Total 1926.0 1372.0 Output Total 245 402 Balance 1681.0 970.0 Intake, Blood 350 Product Intake, IV 1160 801 Intake, Lipid 95.0 41.0 Intake, 671 180 TPN/PPN Output, 50 Emesis Output, 100 200 Gastric Drainage Output, Stool 10 10 Output, Urine 135 142 Exam General Appearance: trach in place, jaundiced Head: atraumatic, normal appearance Neck: supple Respiratory: scattered bilateral rhonchi, the lungs expand symmetrically and the trachea is midline Cardiovascular: regular rate/rhythm Abdomen: distended, bowel sounds absent, no erythema or drainage, colostomy contains stool, drainage from midline incision observed Extremities: no edema Skin: intact, warm/dry Results Last 24 Hrs of Lab Results: Laboratory Tests 12/27/16 0405: Anion Gap 12, Estimated GFR 18 L, Glucose 158 H, Calcium 8.1 L, Phosphorus 4.3, Magnesium 2.5 H, Total Bilirubin 13.0 H, AST 45, ALT 32, Albumin 1.9 L, CBC w Diff MAN DIFF ORDERED, RBC 2.90 L, MCV 84.8, MCH 29.4, RDW 16.3 H, MPV 9.8, Gran % 90.2 H, Lymphocytes % 4.1 L, Monocytes % 4.5, Eosinophils % 1.1, Basophils % 0.1, Absolute Granulocytes 23.1 H, Segmented Neutrophils 88 H, Band Neutrophils 3, Absolute Lymphocytes 1.0 L, Lymphocytes 2 L, Monocytes 2, Absolute Monocytes 1.2 H, Eosinophils 1, Absolute Eosinophils 0.3, Absolute Basophils 0, Metamyelocytes 4 H, Platelet Estimate INCREASED, Polychromasia 1+, Hypochromic-Microcytic 2+, PUBS MCHC 34.7 12/26/16 2245: CBC w Diff NO MAN DIFF REQ, RBC 3.02 L, MCV 84.7, MCH 29.0, RDW 16.7 H, MPV 9.4, Gran % 90.9 H, Lymphocytes % 3.9 L, Monocytes % 4.1, Eosinophils % 1.0, Basophils % 0.1, Absolute Granulocytes 24.3 H, Absolute Lymphocytes 1.0 L, Absolute Monocytes 1.1 H, Absolute Eosinophils 0.3, Absolute Basophils 0, PUBS MCHC 34.2 12/26/16 1155: Lactic Acid 1.8 Impression/Plan Impression/Plan Impression/Plan: 1. S/P exploratory laparotomy and Hartmans procedure with increased drainage from the midline incision which appears to be consistent with stool. 2. Respiratory failure, peak airway pressures elevated in the setting of increased abdominal pressure, secondary to abdominal distension. 3. 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 4. Malnutrition. 5. Superficial cephalic vein thrombosis, no DVT. 6. Anemia without bleeding. 7. Worsening bilirubinemia, which may be related to drug-induced liver injury versus persistent intra-abdominal sepsis. 8. Abdominal ileus. 9. Worsening acute kidney injury in the setting of diuresis and IV contrast. Recommendations: * Give a 500 ml bolus now. * Continue IV fluids to 100 ML per hour. * Follow up renal imput. * Continue meropenem and Diflucan as per ID. * Continue current ventilator settings. Hold off on weaning today. * TRC/nebs. * Continue DVT and GI prophylaxis. Subcutaneous heparin to continue. * The patient continues to deteriorate. * If the patient continues to deteroriate, will consider discussing terminal extubation tomorrow with patient's family. * Family updated at bedside. * Continue all supportive care. Code Status: Full Code
--- NOTE | 2016-12-27 10:25 | PN- Infect Dx ---
Subjective Subjective: MAXIMUM TEMPERATURE 101.3. He has been responsive to voice. Objective Last 24 Hrs of Vital Signs/I&O Vital Signs Date Time Temp Pulse Resp B/P Pulse O2 O2 Flow FiO2 Ox Delivery Rate 12/27 0806 30 12/27 0800 99 Ventilator 30% 12/27 0800 99.7 90 16 120/70 99 Ventilator 30% 12/27 0557 30 12/27 0400 93 Ventilator 30% 12/27 0310 30 12/27 0138 100.0 12/27 0039 101.0 12/27 0029 30 12/27 0000 94 Ventilator 30% 12/27 0000 101.0 96 16 124/66 94 Ventilator 30% 12/26 2235 30 12/26 2200 98 Ventilator 30% 12/26 1930 30 12/26 1600 94 Ventilator 30% 12/26 1600 98.7 90 19 92/50 94 Ventilator 30% 12/26 1530 30 12/26 1455 30 12/26 1400 98.3 12/26 1301 101.3 12/26 1200 100.5 94 16 100/74 97 Ventilator 30% 12/26 1144 30 Intake & Output 12/27 1600 12/27 0800 12/27 0000 Intake Total 1926.0 1372.0 Output Total 245 402 Balance 1681.0 970.0 Intake, Blood 350 Product Intake, IV 1160 801 Intake, Lipid 95.0 41.0 Intake, 671 180 TPN/PPN Output, 50 Emesis Output, 100 200 Gastric Drainage Output, Stool 10 10 Output, Urine 135 142 Physical Exam Other Physical Findings: He is arousable and responsive to voice Lungs are mostly clear Heart regular rhythm with no murmur Abdomen is distended, incision is clean, with no erythema, with minimal drainage expressible; colostomy with serous output Extremities no cyanosis, clubbing or edema; PICC in the left upper extremity with no inflammation at the site Edward in place with hematuria Results Last 24 Hours of Lab Results: Laboratory Tests 12/27 12/26 0405 2245 Chemistry Sodium (137 - 145 mmol/L) 140 Potassium (3.5 - 5.1 mmol/L) 4.6 Chloride (98 - 107 mmol/L) 102 Carbon Dioxide (22 - 30 mmol/L) 26 Anion Gap (5 - 16) 12 BUN (9 - 20 mg/dL) 102 *H Creatinine (0.7 - 1.2 mg/dL) 3.2 H Estimated GFR (>60 ml/min) 18 L Glucose (65 - 99 mg/dL) 158 H Calcium (8.4 - 10.2 mg/dL) 8.1 L Phosphorus (2.5 - 4.5 mg/dL) 4.3 Magnesium (1.6 - 2.3 mg/dL) 2.5 H Total Bilirubin (0.2 - 1.3 mg/dL) 13.0 H AST (17 - 59 U/L) 45 ALT (21 - 72 U/L) 32 Albumin (3.5 - 5.0 g/dL) 1.9 L Hematology CBC w Diff MAN DIFF ORDERED NO MAN DIFF REQ WBC (4.8 - 10.8 /CUMM) 25.6 H 26.7 H RBC (4.70 - 6.10 /CUMM) 2.90 L 3.02 L Hgb (14.0 - 18.0 G/DL) 8.5 L 8.8 L Hct (42 - 52 %) 24.5 L 25.6 L MCV (80.0 - 94.0 FL) 84.8 84.7 MCH (27.0 - 31.0 PG) 29.4 29.0 RDW (11.5 - 14.5 %) 16.3 H 16.7 H Plt Count (130 - 400 /CUMM) 444 H 481 H MPV (7.4 - 10.4 FL) 9.8 9.4 Gran % (42.2 - 75.2 %) 90.2 H 90.9 H Lymphocytes % (20.5 - 51.1 %) 4.1 L 3.9 L Monocytes % (1.7 - 9.3 %) 4.5 4.1 Eosinophils % (0 - 5 %) 1.1 1.0 Basophils % (0.0 - 2.0 %) 0.1 0.1 Absolute Granulocytes (1.4 - 6.5 /CUMM) 23.1 H 24.3 H Segmented Neutrophils (42.2 - 75.2 %) 88 H Band Neutrophils (0.0 - 5.0 %) 3 Absolute Lymphocytes (1.2 - 3.4 /CUMM) 1.0 L 1.0 L Lymphocytes (20.5 - 51.1 %) 2 L Monocytes (1.7 - 9.3 %) 2 Absolute Monocytes (0.10 - 0.60 /CUMM) 1.2 H 1.1 H Eosinophils (0 - 5.0 %) 1 Absolute Eosinophils (0.0 - 0.7 /CUMM) 0.3 0.3 Absolute Basophils (0.0 - 0.2 /CUMM) 0 0 Metamyelocytes (0.0 - 1.0 %) 4 H Platelet Estimate (ADEQUATE) INCREASED Polychromasia 1+ Hypochromic-Microcytic 2+ PUBS MCHC (33.0 - 37.0 G/DL) 34.7 34.2 12/26 1155 Chemistry Lactic Acid (0.7 - 2.1 mmol/L) 1.8 Last 24 Hours of Adrian Results: Aspiration of the fluid collection December 24 negative Recent Imaging Studies: Chest x-ray December 27, personally reviewed, reveals stable interstitial prominence bilaterally CT of the abdomen and pelvis without contrast May 26 reveals no significant interval change, with no new foci of intraperitoneal air, minimal perihepatic ascites, with no organizing intra-abdominal or pelvic fluid collections Assessment/Plan Impression: Persistent fevers and leukocytosis despite continued treatment with Meropenem and Fluconazole now 15 days status post repeat laparotomy for drainage of intraperitoneal abscesses and 25 days status post his initial Kirkland's procedure for peritonitis secondary to a perforated viscus, with no response to a 4 day empiric course of Vancomycin for possible sinusitis or cholecystitis, with a positive HIDA scan felt to be 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 The recent aspiration of the fluid collection seen on CT scan yielded turbid fluid, but the final culture is negative. The continued drainage from his incision is of some concern, though the recent repeat CT was unchanged, with no evidence of any new collection or fistula. His course has now been complicated by renal failure, possibly multifactorial, including medications. His bilirubin continues to increase, possibly secondary to sepsis versus TPN versus medications, with the HIDA scan and other imaging studies not felt to be suggestive of acute cholecystitis. His overall prognosis is poor, with little hope for recovery at this time. Suggestion: 1. Agree with decision to reevaluate overall level of care 2. Discontinue Meropenem and Fluconazole and follow off antibiotics
--- NOTE | 2016-12-27 12:44 | PN- Hematology ---
Subjective Subjective: He remains sedated and nonverbal Review of Systems: Unable to be obtained due to mental status and clinical condition. Objective Vital Signs and I&Os Vital Signs Date Time Temp Pulse Resp B/P Pulse O2 O2 Flow FiO2 Ox Delivery Rate 12/27 1109 30 12/27 0806 30 12/27 0800 99 Ventilator 30% 12/27 08 99.7 90 16 120/70 99 Ventilator 30% 12/27 0557 30 12/27 0400 93 Ventilator 30% 12/27 0310 30 12/27 0138 100.0 12/27 0039 101.0 12/27 0029 30 12/27 0000 94 Ventilator 30% 12/27 0000 101.0 96 16 124/66 94 Ventilator 30% 12/26 2235 30 12/26 2200 98 Ventilator 30% 12/26 1930 30 12/26 1600 94 Ventilator 30% 12/26 1600 98.7 90 19 92/50 94 Ventilator 30% 12/26 1530 30 12/26 1455 30 12/26 1400 98.3 12/26 1301 101.3 Intake & Output 12/27 0800 12/27 0000 12/26 1600 12/26 0800 12/26 0000 Intake Total 1926.0 1372.0 2068.8 1217.0 909.6 Output Total 576 353 8253 835 700 Balance 1681.0 970.0 1008.8 382.0 209.6 Intake, Blood 350 Product Intake, IV 1160 801 630 384 578 Intake, Lipid 95.0 41.0 107.8 96.0 20.6 Intake, Other 560 110 Intake, 671 180 771 687 201 TPN/PPN Intake, Tube 50 Irrigant Output, 50 100 Emesis Output, 100 200 550 475 300 Gastric Drainage Output, Stool 10 10 10 25 0 Output, Urine 135 142 400 335 400 Patient 91.172 kg Weight Physical Exam: General Appearance: sedated, obese Head: atraumatic Respiratory:tracheostomy in place on ventilator Cardiovascular: tachycardia Abdomen: distention, midline incision Extremities: pedal edema (2+ bilateral) Neurologic/Psychiatric: sedated Current Medications: Current Medications Sig/Ar Start time Last Medication Dose Route Stop Time Status Admin Acetaminophen 640 MG Q4P PRN 12/23 1415 AC 12/27 PO 0039 Albuterol Sulfate 3 ML EVERY 4 HRS/AWAKE 12/06 1600 AC 12/27 INH 1108 Fat Emulsion 250 ML Q20H ONE 12/27 1900 AC Intravenous IV 12/28 1459 Fat Emulsion 250 ML Q20H ONE 12/26 1900 AC 12/26 Intravenous IV 12/27 1459 2100 Fluconazole 400 MG Q48 12/28 1000 AC Sodium Chloride 200 ML IV Fluconazole 200 MG Q48H 12/28 1000 AC Sodium Chloride 100 ML IV Fluconazole 400 MG DAILY 12/18 1000 DC 12/26 Sodium Chloride 200 ML IV 1028 Fluconazole 200 MG DAILY 12/18 1000 DC 12/26 Sodium Chloride 100 ML IV 1301 Heparin Sodium 5,000 UNIT Q8 12/24 1400 AC 12/27 (Porcine) SC 0532 Ipratropium [place] 2.5 ML EVERY 4 HRS/AWAKE 12/06 1600 AC 12/27 INH 1108 Lorazepam 1 MG Q4P PRN 12/13 1715 DC 12/22 IV 1220 Meropenem 1 GM Q12H 12/27 0600 AC 12/27 IV 0531 Meropenem 1 GM Q8H 12/15 1000 DC 12/26 IV 1800 Ondansetron HCl 4 MG Q6P PRN 12/02 1800 AC 12/22 IV 1233 Pantoprazole Sodium 40 MG DAILY 12/02 2200 AC 12/27 IV 1014 Petrolatum 1 CECY DAILY NEEDED PRN 12/11 2215 AC 12/23 OPH 1532 Sodium Chloride 500 ML BOLUS ONE 12/27 1045 DC 12/27 IV 12/27 1144 1041 Sodium Chloride 500 ML BOLUS ONE 12/27 0145 DC 12/27 IV 12/27 0244 0145 Sodium Chloride 1,000 ML Q10H 12/26 1900 AC 12/27 IV 0300 Sodium Chloride 1,000 ML Q13H 12/25 1400 DC 12/25 IV 1430 Total Parenteral 1 UNIT 1900 12/27 1900 AC Nutrition IV 12/28 1459 Total Parenteral 1 UNIT 1900 12/26 1900 AC 12/26 Nutrition IV 12/27 1259 2100 Vancomycin HCl 1,000 MG 17012/23 1700 DC 12/26 Dextrose/Water 250 ML IV 1700 Assessment/Plan Assessment/Recommendations: Mr. Calvo is an 89-year-old male with asthma and hypertension who presented to the ED with perforated viscus with resulting peritonitis status post surgery with Henny's procedure. His hospitalization has been complicated by hypotension, respiratory failure, and sepsis. He continues to be febrile is currently on antibiotics. He continues to be anemic. He received 1 unit pRBC yesterday. Anemia is likely related to chronic inflammation, critical illness, and infection. He does not hemolysis from previous evaluation. His clinical condition continues to worsen recently. Bilirubin continues to be elevated. This is likely related to multiple factors. He has progressive multiple organs failure. Recommendations: 1. Limits blood draw if possible 2. Critical care as per primary Please call [phone] with any questions or concerns. Problem List: 1. Anemia 2. Peritonitis
--- NOTE | 2016-12-27 13:48 | NUR ---
Patient is drowsey but easily to verbal stimuli. He can move all extremities but not to command. Restraints have been d/c. Pupils are approx 3mm and brisk. Generalized weakness is noted. NSR-ST on tele monitor, HR= 80-100's. SBP: 90-100's, + pulses. #[address]- inner cannula and dressing have been changed. Mouth is dry and mouth care provided frequently. Lungs sound rhonchorous and corse- moderate amounts of thick mackay secretions noted when suctioning. O2 sats ranging from 90-92%. Vent settings currently : AC 16/500/30/5. Abdomen is distended anf firm with absent bowel sounds- abdominal xray done when abdomen appeared more distended and firm when compared to this mornings assesment- Ishmail in to see patient to assess as well. Midline dressing was changed at approx 1200- singh are still noted to incision line with some open areas- serous drainage is noted. Intra abdominal pressure ranging from 14-18. OGT in place to low wall suction with dark green output. Left sided colostomy now draining watery brown stool. stoma site is intact and pink. Mitchell in place draining dark coby colored output with sediment- mitchell was irrigated multiple times. Skin is jaundiced and +1-2 generalized edema is noted. A blister to the left buttock is noted to remain intact and unchnaged from tomasa wound assessment- barrier cream applied. BILLY PICC in place and dressing was reinforced. TPN and lipids infusing per order as well as NS at 100mls/hr- a 500ml bolus was given previously. Multi-podis boots in place. No s/s of pain are currently noted. Family at the bedside and updated on POC. Will continue to closely monitor patient.
--- NOTE | 2016-12-27 13:52 | RADIOLOGY REPORT ---
EXAMINATION: XR PORTABLE ABDOMEN CLINICAL INFORMATION: Abdominal distention COMPARISON: CT 12/26/2016 TECHNIQUE: KUB one view supine FINDINGS: No distended loops of bowel are seen. Limited evaluation for intraperitoneal air on this single supine view. Air and feces are seen within the distal colon and rectum. Ventral midline incisional singh. Enteric tube with tip projecting over the left upper abdominal quadrant beneath the diaphragm. No acute osseous abnormality. IMPRESSION: No significant interval change without evidence of bowel obstruction.
--- NOTE | 2016-12-27 14:32 | PN- Nephrology ---
Assessment/Plan Assessment: 1. JUANA secondary to multiple possible renal insults including contrast, sepsis, hypotension, compartment syndrome; renal function worsening 2. Abdominal sepsis; status post perforated sigmoid colon and subsequent multiple washouts and drains Suggestion: 1. Would not attempt to diurese because of hemodynamic instability 2. Antibiotic therapy per ID 3. In view of the dismal prognosis including worsening renal function, would consider comfort measures only or perhaps even withdrawal of life support. Family fully aware of situation and will be meeting with Dr. Rey in this regard tomorrow Subjective Subjective: Patient remains vented at times responsive. Urine output falling and creatinine rising. Electrolytes remain okay. Leukocytosis persists. Objective Vital Signs and I&Os Vital Signs Date Time Temp Pulse Resp B/P Pulse O2 O2 Flow FiO2 Ox Delivery Rate 12/27 1357 30 12/27 1200 92 Ventilator 30% 12/27 1109 30 12/27 0806 30 12/27 0800 99 Ventilator 30% 12/27 0800 99.7 90 16 120/70 99 Ventilator 30% 12/27 0557 30 12/27 0400 93 Ventilator 30% 12/27 0310 30 12/27 0138 100.0 12/27 0039 101.0 12/27 0029 30 12/27 0000 94 Ventilator 30% 12/27 0000 101.0 96 16 124/66 94 Ventilator 30% 12/26 2235 30 12/26 2200 98 Ventilator 30% 12/26 1930 30 12/26 1600 94 Ventilator 30% 12/26 1600 98.7 90 19 92/50 94 Ventilator 30% 12/26 1530 30 12/26 1455 30 Intake & Output 12/27 1600 12/27 0400 12/26 1600 12/26 0400 12/25 0400 Intake Total 1926.0 1372.0 3285.8 909.6 1842.0 589 Output Total 939 095 5234 700 1800 725 Balance 1681.0 970.0 1390.8 209.6 42.0 -136 Intake, Blood 350 Product Intake, IV 9549 770 5822 578 1057 282 Intake, Lipid 95.0 41.0 203.8 20.6 0 Intake, Oral 0 0 Intake, Other 560 110 60 65 Intake, 162 886 1958 201 725 242 TPN/PPN Intake, Tube 50 Irrigant Number 0 Bowel Movements Output, 50 100 Emesis Output, 223 566 3417 300 900 325 Gastric Drainage Output, Stool 10 10 35 0 50 Output, Urine 135 142 735 400 850 400 Patient 201 lb 207 lb Weight Physical Exam: General: Well-developed, jaundiced, elderly white male, trach, vented, in no acute distress Skin: No rash; positive jaundice HEENT: Conjunctivae pale, sclerae anicteric Neck: Trached, no supraclavicular or cervical adenopathy Chest: Scattered rhonchi and wheezes anterolaterally Heart: Regular rate and rhythm without S3 or rub Abdomen: Distended, tense, drains in place Extremities: Positive edema, no cyanosis Neuro: No focal findings, no myoclonus Current Medications: Current Medications Sig/Ar Start time Last Medication Dose Route Stop Time Status Admin Acetaminophen 640 MG Q4P PRN 12/23 1415 AC 12/27 PO 0039 Albuterol Sulfate 3 ML EVERY 4 HRS/AWAKE 12/06 1600 AC 12/27 INH 1108 Fat Emulsion 250 ML Q20H ONE 12/27 1900 AC Intravenous IV 12/28 1459 Fat Emulsion 250 ML Q20H ONE 12/26 1900 AC 12/26 Intravenous IV 12/27 1459 2100 Fluconazole 400 MG Q48 12/28 1000 CAN Sodium Chloride 200 ML IV Fluconazole 200 MG Q48H 12/28 1000 DC Sodium Chloride 100 ML IV Fluconazole 400 MG DAILY 12/18 1000 DC 12/26 Sodium Chloride 200 ML IV 1028 Fluconazole 200 MG DAILY 12/18 1000 DC 12/26 Sodium Chloride 100 ML IV 1301 Heparin Sodium 5,000 UNIT Q8 12/24 1400 AC 12/27 (Porcine) SC 1407 Ipratropium [place] 2.5 ML EVERY 4 HRS/AWAKE 12/06 1600 AC 12/27 INH 1108 Lorazepam 1 MG Q4P PRN 12/13 1715 DC 12/22 IV 1220 Meropenem 1 GM Q12H 12/27 0600 DC 12/27 IV 0531 Meropenem 1 GM Q8H 12/15 1000 DC 12/26 IV 1800 Ondansetron HCl 4 MG Q6P PRN 12/02 1800 AC 12/22 IV 1233 Pantoprazole Sodium 40 MG DAILY 12/02 2200 AC 12/27 IV 1014 Petrolatum 1 CECY DAILY NEEDED PRN 12/11 2215 AC 12/23 OPH 1532 Sodium Chloride 500 ML BOLUS ONE 12/27 1045 DC 12/27 IV 12/27 1144 1041 Sodium Chloride 500 ML BOLUS ONE 12/27 0145 DC 12/27 IV 12/27 0244 0145 Sodium Chloride 1,000 ML Q10H 12/26 1900 AC 12/27 IV 0300 Sodium Chloride 1,000 ML Q13H 12/25 1400 DC 12/25 IV 1430 Total Parenteral 1 UNIT 19012/27 1900 AC Nutrition IV 12/28 1459 Total Parenteral 1 UNIT 19012/26 1900 DC 12/26 Nutrition IV 12/27 1259 2100 Vancomycin HCl 1,000 MG 12/23 1700 DC 12/26 Dextrose/Water 250 ML IV 1700 Results Pertinent Lab Results: Laboratory Tests 12/27 12/26 0405 2245 Chemistry Sodium (137 - 145 mmol/L) 140 Potassium (3.5 - 5.1 mmol/L) 4.6 Chloride (98 - 107 mmol/L) 102 Carbon Dioxide (22 - 30 mmol/L) 26 Anion Gap (5 - 16) 12 BUN (9 - 20 mg/dL) 102 *H Creatinine (0.7 - 1.2 mg/dL) 3.2 H Estimated GFR (>60 ml/min) 18 L Glucose (65 - 99 mg/dL) 158 H Calcium (8.4 - 10.2 mg/dL) 8.1 L Phosphorus (2.5 - 4.5 mg/dL) 4.3 Magnesium (1.6 - 2.3 mg/dL) 2.5 H Total Bilirubin (0.2 - 1.3 mg/dL) 13.0 H AST (17 - 59 U/L) 45 ALT (21 - 72 U/L) 32 Albumin (3.5 - 5.0 g/dL) 1.9 L Hematology CBC w Diff MAN DIFF ORDERED NO MAN DIFF REQ WBC (4.8 - 10.8 /CUMM) 25.6 H 26.7 H RBC (4.70 - 6.10 /CUMM) 2.90 L 3.02 L Hgb (14.0 - 18.0 G/DL) 8.5 L 8.8 L Hct (42 - 52 %) 24.5 L 25.6 L MCV (80.0 - 94.0 FL) 84.8 84.7 MCH (27.0 - 31.0 PG) 29.4 29.0 RDW (11.5 - 14.5 %) 16.3 H 16.7 H Plt Count (130 - 400 /CUMM) 444 H 481 H MPV (7.4 - 10.4 FL) 9.8 9.4 Gran % (42.2 - 75.2 %) 90.2 H 90.9 H Lymphocytes % (20.5 - 51.1 %) 4.1 L 3.9 L Monocytes % (1.7 - 9.3 %) 4.5 4.1 Eosinophils % (0 - 5 %) 1.1 1.0 Basophils % (0.0 - 2.0 %) 0.1 0.1 Absolute Granulocytes (1.4 - 6.5 /CUMM) 23.1 H 24.3 H Segmented Neutrophils (42.2 - 75.2 %) 88 H Band Neutrophils (0.0 - 5.0 %) 3 Absolute Lymphocytes (1.2 - 3.4 /CUMM) 1.0 L 1.0 L Lymphocytes (20.5 - 51.1 %) 2 L Monocytes (1.7 - 9.3 %) 2 Absolute Monocytes (0.10 - 0.60 /CUMM) 1.2 H 1.1 H Eosinophils (0 - 5.0 %) 1 Absolute Eosinophils (0.0 - 0.7 /CUMM) 0.3 0.3 Absolute Basophils (0.0 - 0.2 /CUMM) 0 0 Metamyelocytes (0.0 - 1.0 %) 4 H Platelet Estimate (ADEQUATE) INCREASED Polychromasia 1+ Hypochromic-Microcytic 2+ PUBS MCHC (33.0 - 37.0 G/DL) 34.7 34.2 12/26 12/26 12/26 1155 0855 0853 Chemistry Sodium (137 - 145 mmol/L) 141 Potassium (3.5 - 5.1 mmol/L) 4.3 Chloride (98 - 107 mmol/L) 101 Carbon Dioxide (22 - 30 mmol/L) 29 Anion Gap (5 - 16) 11 BUN (9 - 20 mg/dL) 86 H Creatinine (0.7 - 1.2 mg/dL) 2.4 H Estimated GFR (>60 ml/min) 26 L Glucose (65 - 99 mg/dL) 194 H Lactic Acid (0.7 - 2.1 mmol/L) 1.8 2.2 H Calcium (8.4 - 10.2 mg/dL) 8.2 L Phosphorus (2.5 - 4.5 mg/dL) 4.5 Magnesium (1.6 - 2.3 mg/dL) 2.5 H Total Bilirubin (0.2 - 1.3 mg/dL) 12.2 H Direct Bilirubin (< 0.4 mg/dL) 11.4 H AST (17 - 59 U/L) 49 ALT (21 - 72 U/L) 34 Ammonia (9 - 30 umol/L) < 9 L Albumin (3.5 - 5.0 g/dL) 1.9 L Hematology CBC w Diff MAN DIFF ORDERED WBC (4.8 - 10.8 /CUMM) 25.1 H RBC (4.70 - 6.10 /CUMM) 2.66 L Hgb (14.0 - 18.0 G/DL) 7.8 L Hct (42 - 52 %) 22.9 L MCV (80.0 - 94.0 FL) 86.1 MCH (27.0 - 31.0 PG) 29.4 RDW (11.5 - 14.5 %) 17.0 H Plt Count (130 - 400 /CUMM) 456 H MPV (7.4 - 10.4 FL) 9.6 Gran % (42.2 - 75.2 %) 91.1 H Lymphocytes % (20.5 - 51.1 %) 4.0 L Monocytes % (1.7 - 9.3 %) 4.2 Eosinophils % (0 - 5 %) 0.7 Basophils % (0.0 - 2.0 %) 0 L Absolute Granulocytes (1.4 - 6.5 /CUMM) 22.9 H Segmented Neutrophils (42.2 - 75.2 %) 82 H Band Neutrophils (0.0 - 5.0 %) 5 Absolute Lymphocytes (1.2 - 3.4 /CUMM) 1.0 L Lymphocytes (20.5 - 51.1 %) 6 L Monocytes (1.7 - 9.3 %) 4 Absolute Monocytes (0.10 - 0.60 /CUMM) 1.1 H Eosinophils (0 - 5.0 %) 1 Absolute Eosinophils (0.0 - 0.7 /CUMM) 0.2 Basophils (0.0 - 2.0 %) 1 Absolute Basophils (0.0 - 0.2 /CUMM) 0 Myelocytes (0 - 0 %) 1 H Platelet Estimate (ADEQUATE) INCREASED Polychromasia 1+ Hypochromic-Microcytic 2+ Anisocytosis 1+ PUBS MCHC (33.0 - 37.0 G/DL) 34.2 12/26 12/25 0445 0445 Chemistry Sodium (137 - 145 mmol/L) 140 142 Potassium (3.5 - 5.1 mmol/L) 4.4 4.3 Chloride (98 - 107 mmol/L) 99 100 Carbon Dioxide (22 - 30 mmol/L) 30 30 Anion Gap (5 - 16) 12 12 BUN (9 - 20 mg/dL) 83 H 63 H Creatinine (0.7 - 1.2 mg/dL) 2.3 H 1.7 H Estimated GFR (>60 ml/min) 27 L 38 L Glucose (65 - 99 mg/dL) 185 H 174 H Calcium (8.4 - 10.2 mg/dL) 8.1 L 8.0 L Phosphorus (2.5 - 4.5 mg/dL) 4.6 H 5.1 H Magnesium (1.6 - 2.3 mg/dL) 2.4 H 2.2 Total Bilirubin (0.2 - 1.3 mg/dL) 12.5 H 11.4 H Direct Bilirubin (< 0.4 mg/dL) 11.7 H 10.3 H AST (17 - 59 U/L) 54 49 ALT (21 - 72 U/L) 39 33 Albumin (3.5 - 5.0 g/dL) 1.9 L 2.0 L Prealbumin (17.6 - 36.0 mg/dL) < 3.0 L Triglycerides (<150 mg/dL) 166 H Hematology CBC w Diff MAN DIFF ORDERED MAN DIFF ORDERED WBC (4.8 - 10.8 /CUMM) 20.0 H 22.9 H RBC (4.70 - 6.10 /CUMM) 3.70 L 2.77 L Hgb (14.0 - 18.0 G/DL) 10.6 L 8.2 L Hct (42 - 52 %) 31.6 L 23.8 L MCV (80.0 - 94.0 FL) 85.6 85.7 MCH (27.0 - 31.0 PG) 28.7 29.6 RDW (11.5 - 14.5 %) 17.5 H 16.5 H Plt Count (130 - 400 /CUMM) 392 442 H MPV (7.4 - 10.4 FL) 9.8 9.5 Gran % (42.2 - 75.2 %) 91.6 H 90.7 H Lymphocytes % (20.5 - 51.1 %) 4.3 L 4.6 L Monocytes % (1.7 - 9.3 %) 3.4 4.0 Eosinophils % (0 - 5 %) 0.7 0.4 Basophils % (0.0 - 2.0 %) 0 L 0.3 Absolute Granulocytes (1.4 - 6.5 /CUMM) 18.3 H 20.7 H Segmented Neutrophils (42.2 - 75.2 %) 87 H Band Neutrophils (0.0 - 5.0 %) 1 Absolute Lymphocytes (1.2 - 3.4 /CUMM) 0.9 L 1.1 L Lymphocytes (20.5 - 51.1 %) 8 L Monocytes (1.7 - 9.3 %) 3 Absolute Monocytes (0.10 - 0.60 /CUMM) 0.7 H 0.9 H Absolute Eosinophils (0.0 - 0.7 /CUMM) 0.1 0.1 Absolute Basophils (0.0 - 0.2 /CUMM) 0 0.1 Metamyelocytes (0.0 - 1.0 %) 1 Platelet Estimate (ADEQUATE) ADEQUATE ADEQUATE Polychromasia 1+ 1+ Hypochromic-Microcytic 2+ Anisocytosis 1+ Ovalocytes FEW PUBS MCHC (33.0 - 37.0 G/DL) 33.5 34.5 Other Body Source Fld Total RBCs Counted (%) 100
[2016-12-27 16:00] VITALS: BP 90/54
--- NOTE | 2016-12-27 16:45 | NUR ---
Axillary temp noted to be 101.4- Dr. Mcdonald notified- No Tylenol to be given at this time due to borderline BP per MD. Ice packs and cold compresses applied. Will continue to monitor.
--- NOTE | 2016-12-27 18:24 | NUR ---
BP noted to be 78/44 by autocuff and 82/50 manually- TPN and lipids have been turned off since 1714- and will be restarted around 2099-. ns continues to to infuse at 100mls/hr. Dr. Cain notified- 500ml normal saline bolus given. Will continue to monitor patient.
[2016-12-28] VITALS: BP 90/48
[2016-12-28 05:20] LABS: ABSOLUTE BASOPHIL COUNT 0.1 /CUMM (0.0-0.2); ABSOLUTE EOSINOPHIL COUNT 0.4 /CUMM (0.0-0.7); ABSOLUTE GRANULOCYTE CT 21.2 /CUMM (1.4-6.5); ABSOLUTE LYMPH COUNT 1.4 /CUMM (1.2-3.4); ABSOLUTE MONOCYTE COUNT 1.3 /CUMM (0.10-0.60); BASOPHIL % 0.3 % (0.0-2.0); EOSINOPHIL % 1.5 % (0-5); HEMATOCRIT 23.4 % (42-52); MEAN CORPUSCULAR HGB 29.2 PG (27.0-31.0); MEAN CORPUSCULAR HGB CONC 34.3 G/DL (33.0-37.0); MEAN CORPUSCULAR VOLUME 85.1 FL (80.0-94.0); MEAN PLATELET VOLUME 10.1 FL (7.4-10.4); PLATELET COUNT 391 /CUMM (130-400); RBC DISTRIBUTION WIDTH 17.7 % (11.5-14.5); RED BLOOD CELL CT 2.75 /CUMM (4.70-6.10); WHITE BLOOD CELL COUNT 24.4 /CUMM (4.8-10.8)
--- NOTE | 2016-12-28 05:38 | PN- General Surgery ---
Subjective Subjective: The patient was seen this morning postoperatively. He remains on the vent and is less responsive this morning. Per nursing the patient has received multiple fluid boluses for low urine output and hypotension. Extremities coming in later this morning to discuss possible terminal extubation and comfort measures Objective Vital Signs and I&Os Vital Signs Date Time Temp Pulse Resp B/P Pulse O2 O2 Flow FiO2 Ox Delivery Rate 12/28 0400 96 Ventilator 40% 12/28 0318 40 12/28 0121 40 12/28 0000 98.9 84 16 90/48 97 Ventilator 40% 12/28 0000 94 Ventilator 40% 12/27 2222 40 12/27 2000 94 Ventilator 40% 12/27 1925 40 12/27 1600 30 12/27 1600 100.9 97 21 90/54 94 Ventilator 30% 12/27 1600 94 Ventilator 40% 12/27 1357 30 12/27 1200 92 Ventilator 30% 12/27 1109 30 12/27 0806 30 12/27 0800 99 Ventilator 30% 12/27 0800 99.7 90 16 120/70 99 Ventilator 30% 12/27 0557 30 Intake & Output 12/28 0800 12/28 0000 12/27 1600 12/27 0800 12/27 0000 12/26 1600 Intake Total 2122.0 1926.0 1372.0 2068.8 Output Total 251 525 298 145 0711 Balance 1871.0 -525 1681.0 970.0 1008.8 Intake, Blood 350 Product Intake, IV 1741 1160 801 630 Intake, Lipid 58.0 95.0 41.0 107.8 Intake, Other 560 Intake, 323 671 180 771 TPN/PPN Output, 50 100 Emesis Output, 125 125 100 200 550 Gastric Drainage Output, Stool 20 50 10 10 10 Output, Urine 106 350 135 142 400 Physical Exam: Gen.: Ventilated and minimally responsive Abdomen: Softly distended, bowel sounds scant, surgical incision with clips in place and still greenish serous drainage on dressing. Colostomy is somewhat edematous but viable with liquid and small amount of stool in the bag Extremities: Bilateral lower extremities are warm and edematous. Assessment/Plan Assessment/Plan Assessment: 89-year-old male status post exploratory laparotomy and Kirkland's procedure for perforated colon. The patient's hospital course has been complicated by multiple organ system failure. Over the past day or 2 the patient has significantly deteriorated. Plan: Critical care team to discuss the family possible terminal extubation and comfort measures Follow-up morning laboratory studies Attempt to maintain adequate pressure with fluid boluses and consider pressure support should the family agree Strict I's and O's Total respiratory care Continue IV antibiotics GI and DVT prophylaxis Follow-up multiple consultation specialty recommendations Core Measures/Miscellaneous Edward Catheter Date In: 12/02/16 Venous Thromboembolism VTE Risk Factors: Acute medical illness, Age > 40, Surgery VTE Contraindications: No Contraindications VTE Prophylaxis Ordered Inpt Mech & Pharm VTE Diagnosis: No Beta Abelardo Is Beta Abelardo a Home Med? No Antibiotics Is Patient on Antibiotics? Yes If Yes: infection
--- NOTE | 2016-12-28 07:54 | PN- Resident CRCU ---
Subjective HPI/CRCU Issues: Patient was seen and examined. Patient is arousable to verbal and tactile stimulation. He is unable to provide any review of systems. Patient is ventilated through the tracheostomy. His jaundice is getting worse, his abdomen looks more distended, with yellow-white discharge from his surgical wound. Patient lab work including kidney and liver function is getting worse. He still spiking fever Objective Vital Signs & I&O Last 8 Hrs of Vitals and I&O: Intake & Output 12/28 1600 12/28 0800 12/28 0000 Intake Total 2335.0 2122.0 Output Total 525 251 Balance 1810.0 1871.0 Intake, IV 1559 1741 Intake, Lipid 96.0 58.0 Intake, 680 323 TPN/PPN Output, 125 125 Gastric Drainage Output, Stool 350 20 Output, Urine 50 106 Laboratory Tests 12/28 0450 Chemistry Sodium (137 - 145 mmol/L) 140 Potassium (3.5 - 5.1 mmol/L) 5.1 Chloride (98 - 107 mmol/L) 106 Carbon Dioxide (22 - 30 mmol/L) 21 L Anion Gap (5 - 16) 13 BUN (9 - 20 mg/dL) 120 *H Creatinine (0.7 - 1.2 mg/dL) 3.6 H Estimated GFR (>60 ml/min) 16 L Glucose (65 - 99 mg/dL) 111 H Calcium (8.4 - 10.2 mg/dL) 8.0 L Phosphorus (2.5 - 4.5 mg/dL) 5.0 H Magnesium (1.6 - 2.3 mg/dL) 2.3 Total Bilirubin (0.2 - 1.3 mg/dL) 13.3 H AST (17 - 59 U/L) 74 H ALT (21 - 72 U/L) 36 Albumin (3.5 - 5.0 g/dL) 1.8 L Hematology CBC w Diff MAN DIFF ORDERED WBC (4.8 - 10.8 /CUMM) 24.4 H RBC (4.70 - 6.10 /CUMM) 2.75 L Hgb (14.0 - 18.0 G/DL) 8.0 L Hct (42 - 52 %) 23.4 L MCV (80.0 - 94.0 FL) 85.1 MCH (27.0 - 31.0 PG) 29.2 RDW (11.5 - 14.5 %) 17.7 H Plt Count (130 - 400 /CUMM) 391 MPV (7.4 - 10.4 FL) 10.1 Gran % (42.2 - 75.2 %) 87.0 H Lymphocytes % (20.5 - 51.1 %) 5.7 L Monocytes % (1.7 - 9.3 %) 5.5 Eosinophils % (0 - 5 %) 1.5 Basophils % (0.0 - 2.0 %) 0.3 Absolute Granulocytes (1.4 - 6.5 /CUMM) 21.2 H Segmented Neutrophils (42.2 - 75.2 %) 84 H Band Neutrophils (0.0 - 5.0 %) 3 Absolute Lymphocytes (1.2 - 3.4 /CUMM) 1.4 Lymphocytes (20.5 - 51.1 %) 7 L Monocytes (1.7 - 9.3 %) 3 Absolute Monocytes (0.10 - 0.60 /CUMM) 1.3 H Eosinophils (0 - 5.0 %) 2 Absolute Eosinophils (0.0 - 0.7 /CUMM) 0.4 Absolute Basophils (0.0 - 0.2 /CUMM) 0.1 Metamyelocytes (0.0 - 1.0 %) 1 Platelet Estimate (ADEQUATE) ADEQUATE Polychromasia 1+ Poikilocytosis 1+ Ovalocytes 1+ Stomatocytes FEW PUBS MCHC (33.0 - 37.0 G/DL) 34.3 Other Body Source Fld Total RBCs Counted (%) 100 Exam General Appearance: sedated, intubated Head: atraumatic, normal appearance Respiratory: mechanical ventilation through tracheostomy with rhonchi over both lungs Cardiovascular: it's hard to assess heart sound because of breathing sound Gastrointestinal: abdominal distention, tense, surgical incision with clips on place. Skin: jaundice Weaning Parameters NIF: 42 Minute Volume: 13 Resp rate: 24 Vt: 520 Heart Rate: 107 Weaning Schedule Start Time: 0835 Minute Volume: 13 Resp Rate: 26 Vt: 559 Heart Rate: 98 End Time: 0839 Minute Volume: 17 Resp Rate: 56 Vt: 200 Heart Rate: 120 Start Time: 1142 Minute Volume: 12 Resp Rate: 22 Vt: 490 Heart Rate: 100 End Time: 1150 Resp Rate: 55 Vt: 169 Heart Rate: 102 Current Medications: Current Medications Sig/Ar Start time Last Medication Dose Route Stop Time Status Admin Acetaminophen 640 MG Q4P PRN 12/23 1415 AC 12/27 PO 0039 Albuterol Sulfate 3 ML EVERY 4 HRS/AWAKE 12/06 1600 AC 12/28 INH 0833 Fat Emulsion 250 ML Q20H ONE 12/27 1900 DC 12/27 Intravenous IV 12/28 1459 2118 Fluconazole 200 MG Q48H 12/28 1000 DC Sodium Chloride 100 ML IV Glycopyrrolate 200 MCG ONE ONE 12/28 1000 DC 12/28 IV 12/28 1001 1023 Heparin Sodium 5,000 UNIT Q8 12/24 1400 AC 12/28 (Porcine) SC 0539 Ipratropium [place] 2.5 ML EVERY 4 HRS/AWAKE 12/06 1600 AC 12/28 INH 0833 Lorazepam 1 MG ONCE ONE 12/28 1045 DC 12/28 IV 12/28 1046 1031 Morphine Sulfate 5 MG ONCE ONE 12/28 1000 DC 12/28 IV 12/28 1001 1015 Morphine Sulfate 100 MG Q24H 12/28 1000 AC 12/28 Dextrose/Water 100 ML IV 1016 Ondansetron HCl 4 MG Q6P PRN 12/02 1800 AC 12/22 IV 1233 Pantoprazole Sodium 40 MG DAILY 12/02 2200 AC 12/28 IV 0853 Petrolatum 1 CECY DAILY NEEDED PRN 12/11 2215 AC 12/23 OPH 1532 Sodium Chloride 500 ML BOLUS ONE 12/28 0445 DC 12/28 IV 12/28 0544 0445 Sodium Chloride 500 ML BOLUS ONE 12/27 2300 DC 12/27 IV 12/27 2359 2300 Sodium Chloride 500 ML BOLUS ONE 12/27 1945 DC 12/27 IV 12/27 2044 1936 Sodium Chloride 500 ML BOLUS ONE 12/27 1815 DC 12/27 IV 12/27 1914 1815 Sodium Chloride 1,000 ML Q10H 12/26 1900 AC 12/28 IV 0103 Total Parenteral 1 UNIT 1900 12/27 1900 DC 12/27 Nutrition IV 12/28 1459 2118 Impression/Plan Impression/Problem List Impression: 89/M with PMH of asthma, HTN, bilateral inguinal hernia s/p repair 30 years ago presented to [facility] on 12/12[facility]15 c/o acute abdominal pain. He was found to have acute perforation of sigmoid colon complicated by peritonitis. He underwent emergent surgery with Henny's procedure. He was subsequently sent to ICU for hemodynamic stabilization, further care as patient is at high risk for infection/respiratory failure post extubation. Today he is still on ventilated through tracheostomy, slightly arousable, and spiking fevers. He has fast rate and slightly low blood pressure Plan Respiratory: #Respiratory failure. * Patient has history of COPD. * Patient is on mechanically ventilated through tracheostomy. His ventilation sittings are tidal volume to 500 and respiratory rate of 16. Infectious Diseases: #Recurrent Fever explaratory laparotomy. Post op day #24 Underwent repeat drainage during ICU stay. OR cultures was sent and was positive for Gram postive cocci and gram negative rods. * He is still febrile. WBCs today is still elevated * As per infectious disease recommendation , we DCed all IV meropenem Q8 1gm, Fluconazol 600 daily, and vancomycin 1 g daily * panculture, will follow the results. * C. difficile, we will follow the results * Paracentesis fluid culture is pending * We will continue liq acetaminophen and cooling blankets when necessary. Cardiovascular: #New onset A. fib postoperativey (resolved). Patient developed A. fib post operative, most likely patient was on stress because of sepsis. He was started on amiodarone drip, patient then converted back to normal sinus rhythm after which a major on trip was discontinued. Currently he is maintaining normal sinus rhythm #New onset bilateral lower extremity edema. Bilateral lower extremity Doppler was done to exclude DVTs as a possible explanation. Results came back negative for DVTs. * we'll keep negative balance #Right Cephalic vein thrombosis Patient was found to have superficial thrombosis in right cephalic vein. He had a peripheral line in that region at the time of surgery. This thrombosis is a superficial and most likely will not lead to any DVTs. * Warm compressors without any anticoagulation for now. Hematology: Leukocytosis and anemia * We will repeat CBC daily * We will follow any further hematology oncology recommendation Metabolic: #JUANA Today his creatinine is 3.6 which is higher than yesterday 3.2 * We will continue IV fluids on the rate of 100 per hour * We will follow nephrology recommendation Alimentary: #Hyperbilirubinemia Hematology believe it's not because of hemodialysis. X-ray was done and showed or lytic ileus however surgery believe that no surgical intervention will be needed now. Is the pattern looks like obstructive gallbladder pathology. However HIDA scan was done yesterday and suggest that it's not obstructive. We consulted GI (Dr. Torres), GI bleeds it's from the sepsis, TPN and or drug induced. * NPO with NG decompression * TPN - day 20. * we'll cont' GI prophylaxis. * Colostomy bag in place with active drainage * Bowel sounds decreased. * Surgery is on board we will follow their recommendation. * GI is on board we will follow their recommendation Neurological: Patient is sedated and ventilated through tracheostomy Patient is arousable to verbal and tactile stimulus. Endocrinology No endocrinology issue at the time SKI No current skin issues Diet patient is nothing by mouth * We'll continue TPN DVT/Prophylaxis: sc lovenox Code Status: After long discussion with the patient's family, the decision was made to change his CODE STATUS to comfort. Comfort protocol was initiated at 10 AM. More details please refer to Macy Rey MD CRCU progress note Problem List: 1. Peritonitis Pain Ratin Tomorrow's Labs & Rationales: NA Plan DVT/Prophylaxis: sc heparin Code Status: Full Code
[2016-12-28 08:00] VITALS: BP 100/54
--- NOTE | 2016-12-28 08:11 | RADIOLOGY REPORT ---
EXAMINATION: XR PORTABLE CHEST CLINICAL INFORMATION: Ventilated patient. COMPARISON: 12/27/2016 TECHNIQUE: Portable AP view of the chest was obtained. FINDINGS: Tracheostomy tube is stable in positioning. Enteric tube is identified to the level of the midesophagus, however underpenetration of the image limits more distal evaluation. No significant interval change the appearance of the lungs with diffuse coarsening of the interstitial lung markings. No definite focal consolidation. No pneumothorax or pleural effusion appreciated. The cardiomediastinal silhouette is stable in appearance. Slightly increased prominence of the central pulmonary vasculature. No acute osseous abnormality. IMPRESSION: Slightly increased prominence of the central pulmonary vasculature, otherwise unchanged examination with stable diffuse interstitial prominence.
--- NOTE | 2016-12-28 10:46 | PN- CRCU ---
Subjective HPI/Critical Care Issues: The patient continues to deteriorate. His BUN and creatinine remain elevated and bilirubin continues to rise. His urine output continues to be low. He remains unresponsive and ventilator dependent. Objective Current Medications: Current Medications Sig/Ar Start time Last Medication Dose Route Stop Time Status Admin Acetaminophen 640 MG Q4P PRN 12/23 1415 AC 12/27 PO 0039 Albuterol Sulfate 3 ML EVERY 4 HRS/AWAKE 12/06 1600 AC 12/28 INH 0833 Fat Emulsion 250 ML Q20H ONE 12/27 1900 AC 12/27 Intravenous IV 12/28 1459 2118 Fat Emulsion 250 ML Q20H ONE 12/26 1900 DC 12/26 Intravenous IV 12/27 1459 2100 Fluconazole 400 MG Q48 12/28 1000 CAN Sodium Chloride 200 ML IV Fluconazole 200 MG Q48H 12/28 1000 DC Sodium Chloride 100 ML IV Glycopyrrolate 200 MCG ONE ONE 12/28 1000 DC 12/28 IV 12/28 1001 1023 Heparin Sodium 5,000 UNIT Q8 12/24 1400 AC 12/28 (Porcine) SC 0539 Ipratropium [place] 2.5 ML EVERY 4 HRS/AWAKE 12/06 1600 AC 12/28 INH 0833 Lorazepam 1 MG ONCE ONE 12/28 1045 UNVr IV 12/28 1046 Meropenem 1 GM Q12H 12/27 0600 DC 12/27 IV 0531 Morphine Sulfate 5 MG ONCE ONE 12/28 1000 DC 12/28 IV 12/28 1001 1015 Morphine Sulfate 100 MG Q24H 12/28 1000 AC 12/28 Dextrose/Water 100 ML IV 1016 Ondansetron HCl 4 MG Q6P PRN 12/02 1800 AC 12/22 IV 1233 Pantoprazole Sodium 40 MG DAILY 12/02 2200 AC 12/28 IV 0853 Petrolatum 1 CECY DAILY NEEDED PRN 12/11 2215 AC 12/23 OPH 1532 Sodium Chloride 500 ML BOLUS ONE 12/28 0445 DC 12/28 IV 12/28 0544 0445 Sodium Chloride 500 ML BOLUS ONE 12/27 2300 DC 12/27 IV 12/27 2359 2300 Sodium Chloride 500 ML BOLUS ONE 12/27 1945 DC 12/27 IV 12/27 2044 1936 Sodium Chloride 500 ML BOLUS ONE 12/27 1815 DC 12/27 IV 12/27 1914 1815 Sodium Chloride 500 ML BOLUS ONE 12/27 1045 DC 12/27 IV 12/27 1144 1041 Sodium Chloride 1,000 ML Q10H 12/26 1900 AC 12/28 IV 0103 Total Parenteral 1 UNIT 12/27 1900 AC 12/27 Nutrition IV 12/28 1459 2118 Total Parenteral 1 UNIT 12/26 1900 DC 12/26 Nutrition IV 12/27 1259 2100 Vital Signs & I&O Last 24 Hrs of Vitals and I&O: Vital Signs Date Time Temp Pulse Resp B/P Pulse O2 O2 Flow FiO2 Ox Delivery Rate 12/28 0839 40 12/28 0800 92 Ventilator 40% 12/28 0550 40 12/28 0400 96 Ventilator 40% 12/28 0318 40 12/28 0121 40 12/28 0000 98.9 84 16 90/48 97 Ventilator 40% 12/28 0000 94 Ventilator 40% 12/27 2222 40 12/27 2000 94 Ventilator 40% 12/27 1925 40 12/27 1600 30 12/27 1600 100.9 97 21 90/54 94 Ventilator 30% 12/27 1600 94 Ventilator 40% 12/27 1357 30 12/27 1200 92 Ventilator 30% 12/27 1109 30 Intake & Output 12/28 1600 12/28 0800 12/28 0000 Intake Total 2335.0 2122.0 Output Total 525 251 Balance 1810.0 1871.0 Intake, IV 1559 1741 Intake, Lipid 96.0 58.0 Intake, 680 323 TPN/PPN Output, 125 125 Gastric Drainage Output, Stool 350 20 Output, Urine 50 106 Results Last 24 Hrs of Lab Results: Laboratory Tests 12/28/16 0450: Anion Gap 13, Estimated GFR 16 L, Glucose 111 H, Calcium 8.0 L, Phosphorus 5.0 H, Magnesium 2.3, Total Bilirubin 13.3 H, AST 74 H, ALT 36, Albumin 1.8 L, CBC w Diff MAN DIFF ORDERED, RBC 2.75 L, MCV 85.1, MCH 29.2, RDW 17.7 H, MPV 10.1, Gran % 87.0 H, Lymphocytes % 5.7 L, Monocytes % 5.5, Eosinophils % 1.5, Basophils % 0.3, Absolute Granulocytes 21.2 H, Segmented Neutrophils 84 H , Band Neutrophils 3, Absolute Lymphocytes 1.4, Lymphocytes 7 L, Monocytes 3, Absolute Monocytes 1.3 H, Eosinophils 2, Absolute Eosinophils 0.4, Absolute Basophils 0.1, Metamyelocytes 1, Platelet Estimate ADEQUATE, Polychromasia 1+, Poikilocytosis 1+, Ovalocytes 1+, Stomatocytes FEW, PUBS MCHC 34.3, Fld Total RBCs Counted 100 12/27/16 1700: pH 7.35, pCO2 46 H, pO2 88, HCO3 24, ABG O2 Sat (Measured) 94.0 L, P-50 (Temp Corrected) Y, Carboxyhemoglobin 1.0 L, O2 Concentration % 40%, Temperature 101.4 H, Respiration Rate 16, O2 Delivery Method ESPRIT, Vent Mode AC, Expiratory Pressure 5, Tidal Volume 500, Phlebotomy Draw Site LEFT RADIAL Impression/Plan Impression/Plan Impression/Plan: 1. S/P exploratory laparotomy and Hartmans procedure with prolonged sepsis. 2. Respiratory failure, ventilator dependent. 3. 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 4. Malnutrition. 5. Superficial cephalic vein thrombosis, no DVT. 6. Anemia without bleeding. 7. Worsening bilirubinemia, which may be related to drug-induced liver injury versus persistent intra-abdominal sepsis. 8. Abdominal ileus. 9. Worsening acute kidney injury in the setting of critical illness. Recommendations: I have discussed the overall critical condition of the patient with his family at length. A family meeting was held and all family members were present. They understand that the patient is critically ill and has little chance of survival. At the present time, they expressed that the patient's wishes would be that he would not want ongoing life supportive measures. We will change the patient to comfort measures and once he is comfortable, remove him from the ventilator. Unfortunately the prognosis is grim and the family understands the prognosis. Code Status: Full Code
--- NOTE | 2016-12-28 10:50 | PN- Infect Dx ---
Subjective Subjective: MAXIMUM TEMPERATURE 101.4. His blood pressure dropped last evening, with a bolus of normal saline given. He was noted to have a moderate amount of thick, mackay secretions yesterday with watery brown stool in the colostomy. Objective Last 24 Hrs of Vital Signs/I&O Vital Signs Date Time Temp Pulse Resp B/P Pulse O2 O2 Flow FiO2 Ox Delivery Rate 12/28 0839 40 12/28 0800 92 Ventilator 40% 12/28 0550 40 12/28 0400 96 Ventilator 40% 12/28 0318 40 12/28 0121 40 12/28 0000 98.9 84 16 90/48 97 Ventilator 40% 12/28 0000 94 Ventilator 40% 12/27 2222 40 12/27 2000 94 Ventilator 40% 12/27 1925 40 12/27 1600 30 12/27 1600 100.9 97 21 90/54 94 Ventilator 30% 12/27 1600 94 Ventilator 40% 12/27 1357 30 12/27 1200 92 Ventilator 30% 12/27 1109 30 Intake & Output 12/28 1600 12/28 0800 12/28 0000 Intake Total 2335.0 2122.0 Output Total 525 251 Balance 1810.0 1871.0 Intake, IV 1559 1741 Intake, Lipid 96.0 58.0 Intake, 680 323 TPN/PPN Output, 125 125 Gastric Drainage Output, Stool 350 20 Output, Urine 50 106 Physical Exam Other Physical Findings: He is minimally responsive on the ventilator Lungs mostly clear Heart regular rhythm with no murmur Abdomen is distended, incision is clean, with no erythema, with serous drainage noted; brown liquid stool in the colostomy Extremities trace edema both lower extremities; PICC in the left extremity with no inflammation at site Edward catheter remains in place Results Last 24 Hours of Lab Results: Laboratory Tests 12/28 12/27 0450 1700 Blood Gas pH (7.35 - 7.45 PH) 7.35 pCO2 (35 - 45 TORR) 46 H pO2 (80 - 100 TORR) 88 HCO3 (21 - 28 MEQ/L) 24 ABG O2 Sat (Measured) (>96.0 %) 94.0 L P-50 (Temp Corrected) Y Carboxyhemoglobin (1.5 - 5.0 %) 1.0 L O2 Concentration % 40% Temperature (97.0 - 100.0 FARH) 101.4 H Respiration Rate (BPM) 16 O2 Delivery Method ESPRIT Vent Mode AC Expiratory Pressure (CMH2O/P) 5 Tidal Volume (CC) 500 Chemistry Sodium (137 - 145 mmol/L) 140 Potassium (3.5 - 5.1 mmol/L) 5.1 Chloride (98 - 107 mmol/L) 106 Carbon Dioxide (22 - 30 mmol/L) 21 L Anion Gap (5 - 16) 13 BUN (9 - 20 mg/dL) 120 *H Creatinine (0.7 - 1.2 mg/dL) 3.6 H Estimated GFR (>60 ml/min) 16 L Glucose (65 - 99 mg/dL) 111 H Calcium (8.4 - 10.2 mg/dL) 8.0 L Phosphorus (2.5 - 4.5 mg/dL) 5.0 H Magnesium (1.6 - 2.3 mg/dL) 2.3 Total Bilirubin (0.2 - 1.3 mg/dL) 13.3 H AST (17 - 59 U/L) 74 H ALT (21 - 72 U/L) 36 Albumin (3.5 - 5.0 g/dL) 1.8 L Hematology CBC w Diff MAN DIFF ORDERED WBC (4.8 - 10.8 /CUMM) 24.4 H RBC (4.70 - 6.10 /CUMM) 2.75 L Hgb (14.0 - 18.0 G/DL) 8.0 L Hct (42 - 52 %) 23.4 L MCV (80.0 - 94.0 FL) 85.1 MCH (27.0 - 31.0 PG) 29.2 RDW (11.5 - 14.5 %) 17.7 H Plt Count (130 - 400 /CUMM) 391 MPV (7.4 - 10.4 FL) 10.1 Gran % (42.2 - 75.2 %) 87.0 H Lymphocytes % (20.5 - 51.1 %) 5.7 L Monocytes % (1.7 - 9.3 %) 5.5 Eosinophils % (0 - 5 %) 1.5 Basophils % (0.0 - 2.0 %) 0.3 Absolute Granulocytes (1.4 - 6.5 /CUMM) 21.2 H Segmented Neutrophils (42.2 - 75.2 %) 84 H Band Neutrophils (0.0 - 5.0 %) 3 Absolute Lymphocytes (1.2 - 3.4 /CUMM) 1.4 Lymphocytes (20.5 - 51.1 %) 7 L Monocytes (1.7 - 9.3 %) 3 Absolute Monocytes (0.10 - 0.60 /CUMM) 1.3 H Eosinophils (0 - 5.0 %) 2 Absolute Eosinophils (0.0 - 0.7 /CUMM) 0.4 Absolute Basophils (0.0 - 0.2 /CUMM) 0.1 Metamyelocytes (0.0 - 1.0 %) 1 Platelet Estimate (ADEQUATE) ADEQUATE Polychromasia 1+ Poikilocytosis 1+ Ovalocytes 1+ Stomatocytes FEW PUBS MCHC (33.0 - 37.0 G/DL) 34.3 Miscellaneous Phlebotomy Draw Site LEFT RADIAL Other Body Source Fld Total RBCs Counted (%) 100 Last 24 Hours of [place] Results: No recent cultures Recent Imaging Studies: Chest x-ray December 28, personally reviewed, reveals increased prominence of the central pulmonary vasculature Assessment/Plan Impression: Overall condition continues to deteriorate with worsening renal failure, felt to be multifactorial in etiology, persistently elevated bilirubin, also of unclear etiology, and persistent fevers and leukocytosis now off antibiotics 16 days status post repeat laparotomy for drainage of intraperitoneal abscesses and 26 days status post his initial Kirkland's procedure for peritonitis secondary to a perforated viscus. He remains at risk for nosocomial infections, but, given his poor prognosis, further evaluation and/or intervention is unlikely to reverse his course and further discussion regarding a change in his level of care is being planned.. Suggestion: 1. Await decision regarding his overall level of care 2. Continue to follow off antibiotics pending above
--- NOTE | 2016-12-28 12:58 | Event Note ---
Event Note Event Note: Patient was critically ill, he presented with septic shock secondary to peritonitis. Patient condition continued to deteriorate. Patient family was presented at his bedside. A long discussion was conducted with them by Macy Rey MD the whole discussion was witnessed by Liza Tobin MD (regulatory internship). After presenting an update about the patient current clinical status, the family agreed to change the patient CODE STATUS to comfort. We started the comfort protocol at 10 AM with 5mg IV morphine, then IV morphine gtt at 5mg/hr, 1mg IV ativan & 200mcg IV glycopyrralate. Patient terminally extubated from trach @ 1028. Patient was unresponsive with agonal respirations followed by asystolic heart rhythm @ 1040am. Dr. Rey examined the patient and pronounced his . Patient was unresponsiveness. On exam the patient did not respond to verbal or physical stimuli. Absent heart and breath sounds. Absent peripheral pulses. Pupils are fixed and dilated and not reactive to light. Patient pronounced at 10:40 AM. Next of kin and family were at bedside. Autopsy declined.
--- NOTE | 2017-01-06 13:56 | Discharge Summary ---
Visit Information Visit Dates Admission Date: 12/02/16 Discharge Date: 12/28/16 Hospital Course Course Attending Physician: Macy SCHULTE MD Primary Care Physician: SKYE ALEJANDRO,[facility] Course: 89/M with PMH of asthma, HTN, bilateral inguinal hernia repaired at around 13 years ago, arthritis, dyslipidemia, infrequent hemoptysis, obstructive lung disease, and chronic cough related to a chronic bacterial infection including [place] ascorbata and Klebsiella, recently treated with Cipro. who presented to ED c/o sudden onset periumbilical abdominal pain that started on the day of admission after his breakfast meal. Pain was associated with vomiting without nausea and he was unable to defecate. CT scan of the abdomen and pelvis demonstrated acute perforation. . The patient was urgently taken to the operating room where he underwent an exploratory laparotomy and sigmoid colectomy. He was noted to have significant stool in his abdominal cavity which was washed out.The patient was hypotensive in the OR and required a small dose of Matteo-Synephrine prior to being transferred to the critical care unit. The patient was left intubated as per anesthesia due to the nature of his operation and history of chronic lung disease. Issue that was addressed during ICU stay. 1. S/P exploratory laparotomy and Hartmans procedure with prolonged sepsis. initialy patient had metabolic acidosis due to septic shock. He was hypotensive and required multible bolus and small dose of Matteo-Synephrine to mentain BP. He uunderwent repeat drainage of the pertonial cavity during ICU stay. Patient was Spiking fever through out his ICU stay. OR cultures was sent and was positive for Gram positive cocci and gram negative rods. multiple culture was positive through out his ICU stay. Patient was treated with Abx and anti fungal as he also grew yeast on his sputum. Patient was kept NPO with NG decompression, daily TPN, GI prophylaxis. 2. Respiratory failure, ventilator dependent. Patient has history of asthma and COPD with chronic respiratory infection. Post surgery the patient was left intubated as per anesthesia due to the nature of his operation and history of chronic lung disease. later on he developed bilateral pleural effusions, likely secondary to volume overload as opposed to empyema. We used lasix with caution to avoid JUANA worsening. patient was kept intubated through out his ICU stay. 3.New onset A. fib postoperative Patient developed A. fib post operative, most likely patient was on stress because of sepsis. He was started on amiodarone drip, patient then converted back to normal sinus rhythm after which drip was discontinued. He was maintaining normal sinus through out his ICU stay 4.Right Cephalic vein thrombosis Patient was found to have superficial thrombosis in right cephalic vein. He had a peripheral line in that region at the time of surgery. This thrombosis was superficial and most likely was not going to lead to any DVTs. It was treated with warm compressors without any anticoagulation. 5. Hyperbilirubinemia Patient had anemia without bleeding source, hematology believe it's not because of hemolytic anemia. X-ray was done and demonstrated paralytic ileus however surgery believe that no surgical intervention can be done as the patient will not tolerate surgery. even though hyperbilirubinemia pattern looked like obstructive gallbladder pathology, HIDA scan was done and suggest that it's not obstructive. GI believed it's from the sepsis, TPN and or drug induced. 6. Worsening acute kidney injury in the setting of critical illness with Low urine output. Patient had JUANA probably from combination of sepsis and IV contrast. however we could not rule out component of renal ischemia related to elevated abdominal compartment pressures. nephrology added that interstitial nephritis and or vancomycin toxicity seems less likely. even though patient was volume overloaded but had serum albumin of less than 2 so filling pressures may not be that high. We tried to avoid IV contrast, NSAIDS and aminoglycosides as possible. On patient last day, Macy SCHULTE MD discussed the overall critical condition of the patient with his family at length. A family meeting was held and all family members were present. They understand that the patient is critically ill and has little chance of survival. At that time, they expressed that the patient's wishes would be that he would not want ongoing life supportive measures. Based on the family wishes we changed the patient to comfort measures and once he wss comfortable, we removed him from the ventilator. Unfortunately the prognosis was grim and the family understood the prognosis. Allergies: Coded Allergies: NO KNOWN ALLERGIES (12/24/15) Disposition Summary Disposition Principal Diagnosis: 1. S/P exploratory laparotomy and Hartmans procedure with prolonged sepsis. 2. Respiratory failure, ventilator dependent. 3. 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 4. Malnutrition. 5. Superficial cephalic vein thrombosis, no DVT. 6. Anemia without bleeding. 7. Worsening bilirubinemia, which may be related to drug-induced liver injury versus persistent intra-abdominal sepsis. 8. Abdominal ileus. 9. Worsening acute kidney injury in the setting of critical illness. Additional Diagnosis: see above Discharge Disposition: patient Discharge Instructions General Discharge Information Code Status: Full Code Patient's Diet: N/A Patient's Activity: N/A Follow-Up Instructions/Appts: N/A Copies To: Macy SCHULTE MD
== END 2016-12-28 10:40 | disposition expired | DRG 4 ==
LOC: ERH 10:07 → CRI 18:20
PROVIDERS: Emergency Medicine; Internal Medicine; Internal Medicine Cardiovascular Disease; Internal Medicine Infectious Disease; Internal Medicine Interventional Cardiology; Physician Assistant Surgical; Preventive Medicine Public Health & General Preventive Medicine; Radiology Diagnostic Radiology; Student in an Organized Health Care Education/Training Program; ADMIT Surgery
PROC: 0DTN0ZZ Resection of Sigmoid Colon, Open Approach (ICD-10-PCS; principal; 2016-12-02)
PROC: 0D1M0Z4 Bypass Descending Colon to Cutaneous, Open Approach (ICD-10-PCS; principal; 2016-12-02)
PROC: 5A1955Z Respiratory Ventilation, Greater than 96 Consecutive Hours (ICD-10-PCS; 2016-12-02)
PROC: 0BH17EZ Insertion of Endotracheal Airway into Trachea, Via Natural or Artificial Opening (ICD-10-PCS; 2016-12-02)
PROC: 0W9G0ZZ Drainage of Peritoneal Cavity, Open Approach (ICD-10-PCS; 2016-12-12)
PROC: 0B110F4 Bypass Trachea to Cutaneous with Tracheostomy Device, Open Approach (ICD-10-PCS; 2016-12-21)
PROC: 0W9B3ZZ Drainage of Left Pleural Cavity, Percutaneous Approach (ICD-10-PCS; 2016-12-22)
PROC: 0W9G3ZZ Drainage of Peritoneal Cavity, Percutaneous Approach (ICD-10-PCS; 2016-12-24)
DX: A41.9 Sepsis, unspecified organism (principal); K63.1 Perforation of intestine (nontraumatic); R65.21 Severe sepsis with septic shock; K65.9 Peritonitis, unspecified; E87.2 Acidosis; J95.821 Acute postprocedural respiratory failure; J44.9 Chronic obstructive pulmonary disease, unspecified; E46 Unspecified protein-calorie malnutrition; R17 Unspecified jaundice; K40.90 Unilateral inguinal hernia, without obstruction or gangrene, not specified as recurrent; E80.6 Other disorders of bilirubin metabolism; I10 Essential (primary) hypertension; E78.5 Hyperlipidemia, unspecified; J45.909 Unspecified asthma, uncomplicated; Z51.5 Encounter for palliative care
CPT/HCPCS: 84133; 84300; 87070; 87075; CCU; 36415; 74000; 74176; 74177; 78226; 81001; 82436; 82570; 83010; 86920; 87040; 87071; 87086; 87147; 88305; 88307; 93005; 93010; 93306; 93970; 96374; 96375; 96376; A9537; C1769; J0131; J0696; J0744; J1100; J1170; J1450; J1642; J1644; J1720; J1885; J1940; J2060; J2185; J2270; J2405; J2543; J2997; J3010; J3370; J3490; J7040; J7042; J7060; P9016; P9047; Q9965